=== PATIENT | female | born 1980 | race Caucasian/White ===

== ENCOUNTER 2023-01-23 09:35 | Outpatient (OUT) | payer OTHER, SELFPAY ==
--- NOTE | 2023-01-23 10:07 | XR_ITS ---
[address] [address] Patient Name: MITESH BURGESS MRN: [id number] date: 1980 Sex: F Assigned Patient Location: LAB Current Patient Location: LAB Accession/Order Number: [id number] Exam Date: 01/23/2023 10:15 Report Date: 01/23/2023 11:41 At the request of: PEPE ALCAZAR Procedure: XR knee LT 3V PROCEDURE: XR knee LT 3V COMPARISON: None. HISTORY: Left Knee Pain M25.562 FINDINGS: BONES:No fracture, acute abnormality, or significant arthropathy. SOFT TISSUES:Negative. No visible soft tissue swelling. EFFUSION:None visible. OTHER: Negative. XR/XR knee LT 3V IMPRESSION: No acute radiographic abnormality Electronically authenticated by: EDUARDO CROSS Date: 01/23/2023 11:41
--- NOTE | 2023-01-23 10:07 | XR_ITS ---
[address] [address] Patient Name: MITESH BURGESS MRN: [id number] date: 1980 Sex: F Assigned Patient Location: LAB Current Patient Location: LAB Accession/Order Number: [id number] Exam Date: 01/23/2023 10:15 Report Date: 01/23/2023 11:45 At the request of: PEPE ALCAZAR Procedure: XR ankle LT min 3V PROCEDURE: XR ankle LT min 3V COMPARISON: None. HISTORY: Left Ankle Pain M25.572 FINDINGS: BONES:No fracture, acute abnormality, or significant arthropathy. SOFT TISSUES:Negative. No visible soft tissue swelling. EFFUSION:None visible. OTHER: Negative. XR/XR ankle LT min 3V IMPRESSION: No acute radiographic abnormality Electronically authenticated by: EDUARDO CROSS Date: 01/23/2023 11:45
--- NOTE | 2023-01-23 10:07 | XR_ITS ---
The [address] [address] Patient Name: MITESH BURGESS MRN: [id number] date: 1980 Sex: F Assigned Patient Location: LAB Current Patient Location: LAB Accession/Order Number: [id number] Exam Date: 01/23/2023 10:15 Report Date: 01/23/2023 11:43 At the request of: PEPE ALCAZAR Procedure: XR hip LT 2V w/ pelvis PROCEDURE: XR hip LT 2V w/ pelvis COMPARISON: None. HISTORY: Left Hip Pain M25.572 FINDINGS: BONES:No fracture, acute abnormality, or significant arthropathy. SOFT TISSUES:Negative. No visible soft tissue swelling. EFFUSION:None visible. OTHER: Negative. XR/XR hip LT 2V w/ pelvis IMPRESSION: No acute radiographic abnormality Electronically authenticated by: EDUARDO CROSS Date: 01/23/2023 11:43
[2023-01-23 10:12] LABS: Basophils Absolute Auto 0.1 10^3/uL (0.0-0.1); Basophils Percent Auto 0.8 % (0.2-2.0); Eosinophils Absolute Auto 0.2 10^3/uL (0.0-0.7); Eosinophils Percent Auto 3.2 % (0.9-7.0); Hematocrit 41.6 % (36.0-48.0); Immature Granulocytes Abs Auto 0.04 10^3/uL (0.00-0.03); Immature Granulocytes Pct Auto 0.6 % (0.0-0.5); Lymphocytes Absolute Auto 1.8 10^3/uL (1.2-3.8); Mean Corpuscular HGB Conc 33.7 g/dL (29.9-35.2); Mean Corpuscular Hemoglobin 30.4 pg (26.7-34.0); Mean Corpuscular Volume 90.4 fL (81.0-99.0); Monocytes Absolute Auto 0.5 10^3/uL (0.3-0.8); Monocytes Percent Auto 8.3 % (1.7-12.0); Neutrophils Absolute Auto 3.8 10^3/uL (1.4-6.5); Neutrophils Percent Auto 59.1 % (43.0-75.0); Platelet Count 303 10^3/uL (150-450); Red Cell Distribution Width 13.2 % (11.0-15.0); White Blood Count 6.5 10^3/uL (4.0-11.0)
[2023-01-23 13:21] LABS: Anion Gap 12.8; BUN Creatinine Ratio 11.9; Carbon Dioxide 23.3 mmol/L (21.0-32.0); Chloride 107 mmol/L (98-107); Estimated GFR (African America >60 (>=60); Estimated GFR (Non-African Ame 60 (>=60); Glucose 90 mg/dL (74-106); Potassium 4.1 mmol/L (3.5-5.1); Sodium 139 mmol/L (136-145)
[2023-01-23 13:22] LABS: Alanine Aminotransferase 40 U/L (14-59); Albumin Globulin Ratio 1.1; Albumin Level 3.7 g/dL (3.4-5.0); Alkaline Phosphatase 106 U/L (46-116); Aspartate Amino Transferase 29 U/L (15-37); Bilirubin Total 0.3 mg/dL (0.2-1.0); Calcium 9.6 mg/dL (8.5-10.1); Cholesterol 175 mg/dL (<=200); Globulin 3.3 g/dL; Triglycerides 278 mg/dL (<=150); VLDL CHOLESTEROL 55.6 mg/dL
[2023-01-23 13:23] LABS: Chol HDL Ratio 4.9; Free T3 4.56 pg/mL (2.18-3.98); HDL Cholesterol 36 mg/dL (40-60); Thyroid Stimulating Hormone 0.917 uIU/mL (0.358-3.740)
[2023-01-23 13:46] LABS: Estimated Average Glucose 94 mg/dL; Glycohemoglobin A1C 4.9 % (4.5-6.2)
[2023-01-24 11:28] LABS: Insulin 30.7 uIU/mL (2.6-24.9)
== END 2023-01-23 09:36 | disposition home or self-care (01) ==
LOC: LAB 09:39
PROVIDERS: PCP Family Medicine; Visit Provider Family Medicine
DX: M25.552 Pain in left hip (principal); M25.562 Pain in left knee; M25.572 Pain in left ankle and joints of left foot; F32.9 Major depressive disorder, single episode, unspecified; E03.9 Hypothyroidism, unspecified; R73.09 Other abnormal glucose; D64.9 Anemia, unspecified; E55.9 Vitamin D deficiency, unspecified
CPT/HCPCS: 36415; 73502; 73562; 73610; 80053; 80061; 82306; 83036; 83525; 83540; 84436; 84443; 84481; 85025

== ENCOUNTER 2023-03-19 14:14 | Outpatient (REF) | payer OTHER, SELFPAY ==
[2023-03-19 15:59] LABS: Influenza Virus A Antigen Negative; Influenza Virus B Antigen Negative; Internal Control Within Normal Limits; SARS-CoV-2 Ag NEGATIVE (NEGATIVE)
[2023-03-20 16:09] LABS: SARS-CoV-2 NAA NOT DETECTED (NOT DETECTE)
== END 2023-03-19 14:15 | disposition home or self-care (01) ==
LOC: LAB 14:14
PROVIDERS: PCP Family Medicine; Visit Provider Nurse Practitioner Family
DX: J06.9 Acute upper respiratory infection, unspecified (principal)
CPT/HCPCS: 87635; 87804; 87811; U0003

== ENCOUNTER 2023-07-04 13:55 | Emergency (ER) | payer OTHER, SELFPAY ==
[2023-07-04] VITALS (14 sets, daily range): BP systolic 81–123; BP diastolic 34–68; PULSE 61; RESP 14; TEMP 36.6; O2SAT 95; BMI 44.1
[2023-07-04] MEDS: 0.9 % SODIUM CHLORIDE 1,000 ML 1000 ML IV ×2 (14:43→15:33)
--- NOTE | 2023-07-04 15:12 | ED_ITS ---
HPI - General Adult General Chief complaint: Nausea/Vomiting/Diarrhea Stated complaint: FATIGUE/NAUSEA Time Seen by Provider: 07/04/23 15:11 Source: patient Mode of arrival: ambulance History of Present Illness HPI narrative: patient here by squad with a syncopal episode. Patient says she has not felt very good last couple days. In fact spent most yesterday in bed. She had some generalized aches and pains. She had approximately three episodes of diarrhea. She did not know same blood in the diarrhea yesterday. She was on her way to use the restroom for bowel movement today and she passed out. She did not have any shortness of breath prior to that time. She does not have any chest. Chest discomfort. She did not have difficulty dysarthria or dysphagia. She did not have any new medications.she is not on any antibiotics. Related Data Home Medications Medication Instructions Recorded Confirmed buspirone 30 mg tablet 30 mg PO BID 07/04/23 07/04/23 desvenlafaxine succinate 100 mg 200 mg PO DAILY 07/04/23 07/04/23 tablet,extended release 24 hr diclofenac sodium 75 mg 75 mg PO BID 07/04/23 07/04/23 tablet,delayed release hydroxyzine pamoate 25 mg capsule 25 mg PO QID PRN anxiety 07/04/23 07/04/23 lamotrigine 100 mg tablet 100 mg PO DAILY anxiety 07/04/23 07/04/23 lamotrigine 200 mg tablet 200 mg PO DAILY anxiety 07/04/23 07/04/23 levothyroxine 75 mcg tablet 75 mcg PO DAILY 07/04/23 07/04/23 liothyronine 5 mcg tablet 20 mcg PO DAILY 07/04/23 07/04/23 lumateperone 21 mg capsule 21 mg PO DAILY 07/04/23 07/04/23 (Caplyta) methocarbamol 500 mg tablet 500 mg PO TID PRN muscle spasms 07/04/23 07/04/23 pregabalin 150 mg capsule 150 mg PO BID 07/04/23 07/04/23 topiramate 100 mg capsule,extended 100 mg PO DAILY 07/04/23 07/04/23 release 24 hr trazodone 50 mg tablet 50 mg PO QPM 07/04/23 07/04/23 Allergies Allergy/AdvReac Type Severity Reaction Status Date / Time clindamycin Allergy Severe Verified 07/04/23 14:05 codeine Allergy Severe Verified 07/04/23 14:05 Exam Narrative Exam Narrative: the patient is awake and alert. Resting heart rate on EKG is fifty-eight sinus rhythm. She's oriented ?3 there is no confusion. Follows all simple commands. No focal neurological deficits. She does have some mid abdominal discomfort and cramping. There is no peritoneal findings. She is status post cholecystectomy but she has not had an appendectomy. There is no guarding rebound or rigidity. T here is no pulsatile masses. Her lungs are clear heart sounds are regular. Her extremities do not show any peripheral edema or deep vein thrombosis or swelling. Constitutional Vital Signs, click to edit/add: Last Vital Signs Temp 97.8 F 07/04/23 14:01 Pulse 61 07/04/23 14:01 Resp 14 07/04/23 14:01 BP 108/63 07/04/23 15:30 Pulse Ox 95 07/04/23 14:01 O2 Del Method Room Air 07/04/23 14:01 Course Vital Signs Vital signs: Vital Signs Temperature 97.8 F 07/04/23 14:01 Pulse Rate 61 07/04/23 14:01 Respiratory Rate 14 07/04/23 14:01 Blood Pressure 81/51 L 07/04/23 14:01 Pulse Oximetry 95 07/04/23 14:01 Oxygen Delivery Method Room Air 07/04/23 14:01 Temperature 97.8 F 07/04/23 14:01 Pulse Rate 61 07/04/23 14:01 Respiratory Rate 14 07/04/23 14:01 Blood Pressure 108/63 07/04/23 15:30 Pulse Oximetry 95 07/04/23 14:01 Oxygen Delivery Method Room Air 07/04/23 14:01 Medical Decision Making MDM Narrative Medical decision making narrative: patient presents to syncopal episode after trying to use the restroom. She's had some diarrhea the last several days. Her laboratory studies show slightly low potassium but otherwise are normal. Influenza testing Covid are negative. Her chest x-ray is normal. She was given IV fluids here. There is no indication of a urinary tract infection. I believe her symptoms are consistent with a vasovagal reaction Lab Data Labs: Lab Results 07/04/23 07/04/23 07/04/23 Range/Units 14:13 16:25 16:30 WBC 7.3 (4.0-11.0) 10^3/uL RBC 4.54 (4.20-5.40) 10^6/uL Hgb 14.2 (12.0-16.0) g/dL Hct 42.5 (36.0-48.0) % MCV 93.6 (81.0-99.0) fL MCH 31.3 (26.7-34.0) pg MCHC 33.4 (29.9-35.2) g/dL RDW 12.6 (11.0-15.0) % Plt Count 251 (150-450) 10^3/uL MPV 10.4 (9.5-13.5) fL Neut % (Auto) 70.2 (43.0-75.0) % Lymph % (Auto) 21.3 (20.5-60.0) % [facility] % (Auto) 6.9 (1.7-12.0) % Eos % (Auto) 0.8 L (0.9-7.0) % Baso % (Auto) 0.4 (0.2-2.0) % Neut # (Auto) 5.1 (1.4-6.5) 10^3/uL Lymph # (Auto) 1.6 (1.2-3.8) 10^3/uL [facility] # (Auto) 0.5 (0.3-0.8) 10^3/uL Eos # (Auto) 0.1 (0.0-0.7) 10^3/uL Baso # (Auto) 0.0 (0.0-0.1) 10^3/uL Abs Immat Gran (auto) 0.03 (0.00-0.03) 10^3/uL Imm/Tot Granulo (auto) 0.4 (0.0-0.5) % Sodium 140 (136-145) mmol/L Potassium 3.2 L (3.5-5.1) mmol/L Chloride 105 (98-107) mmol/L Carbon Dioxide 24.2 (21.0-32.0) mmol/L Anion Gap 14.0 BUN 19.0 H (7.0-18.0) mg/dL Creatinine 0.95 (0.55-1.02) mg/dL Est GFR ( Amer) >60 (>=60) Est GFR (Non-Af Amer) >60 (>=60) BUN/Creatinine Ratio 20.0 Glucose 113 H (74-106) mg/dL Calcium 9.0 (8.5-10.1) mg/dL Total Bilirubin 0.5 (0.2-1.0) mg/dL AST 25 (15-37) U/L ALT 34 (14-59) U/L Alkaline Phosphatase 117 H (46-116) U/L Troponin I High Sens <4.0 L (4.0-51.3) pg/mL Total Protein 7.0 (6.4-8.2) g/dL Albumin 3.5 (3.4-5.0) g/dL Globulin 3.5 g/dL Albumin/Globulin Ratio 1.0 Lipase 26.0 (16.0-77.0) U/L Urine Color Lt. yellow (YELLOW) Urine Clarity Clear (CLEAR) Urine pH 6.0 (5.0-9.0) Ur Specific [place] <=1.005 A (1.005-1.025) Urine Protein Negative (NEG/TRACE) mg/dL Urine Glucose (UA) Negative (NEGATIVE) mg/dL Urine Ketones Negative (NEGATIVE) mg/dL Urine Occult Blood Negative (NEGATIVE) Urine Nitrite Negative (NEGATIVE) Urine Bilirubin Negative (NEGATIVE) Urine Urobilinogen 0.2 (0.2-1.0) EU/dL Ur Leukocyte Esterase Negative (NEGATIVE) SARS-CoV-2 (PCR) Negative (NEGATIVE) Influenza Type A Ag Negative Influenza Type B Ag Negative Discharge Plan Discharge Chief Complaint: Nausea/Vomiting/Diarrhea Clinical Impression: Acute hypokalemia Patient Disposition: Home, Self-Care Time of Disposition Decision: 16:54 Prescriptions / Home Meds: No Action buspirone 30 mg tablet 30 mg PO BID desvenlafaxine succinate 100 mg tablet extended release 24 hr 200 mg PO DAILY diclofenac sodium 75 mg tablet,delayed release (DR/EC) 75 mg PO BID hydroxyzine pamoate 25 mg capsule 25 mg PO QID PRN (Reason: anxiety) lamotrigine 100 mg tablet 100 mg PO DAILY lamotrigine 200 mg tablet 200 mg PO DAILY levothyroxine 75 mcg tablet 75 mcg PO DAILY liothyronine 5 mcg tablet 20 mcg PO DAILY Caplyta 21 mg capsule 21 mg PO DAILY methocarbamol 500 mg tablet 500 mg PO TID PRN (Reason: muscle spasms) pregabalin 150 mg capsule 150 mg PO BID topiramate 100 mg capsule,extended release 24hr 100 mg PO DAILY trazodone 50 mg tablet 50 mg PO QPM Additional Instructions: increase clear fluids/Zofran if needed for nausea/potassium Stand Alone Forms: Portal Instructions Referrals: Tae Fox MD [Primary Care Provider] - 1 week
[2023-07-04 15:24] LABS: Basophils Percent Auto 0.4 % (0.2-2.0); Eosinophils Absolute Auto 0.1 10^3/uL (0.0-0.7); Eosinophils Percent Auto 0.8 % (0.9-7.0); Hematocrit 42.5 % (36.0-48.0); Hemoglobin 14.2 g/dL (12.0-16.0); Immature Granulocytes Abs Auto 0.03 10^3/uL (0.00-0.03); Immature Granulocytes Pct Auto 0.4 % (0.0-0.5); Lymphocytes Absolute Auto 1.6 10^3/uL (1.2-3.8); Lymphocytes Percent Auto 21.3 % (20.5-60.0); Mean Corpuscular HGB Conc 33.4 g/dL (29.9-35.2); Mean Corpuscular Hemoglobin 31.3 pg (26.7-34.0); Mean Corpuscular Volume 93.6 fL (81.0-99.0); Mean Platelet Volume 10.4 fL (9.5-13.5); Monocytes Absolute Auto 0.5 10^3/uL (0.3-0.8); Monocytes Percent Auto 6.9 % (1.7-12.0); Neutrophils Absolute Auto 5.1 10^3/uL (1.4-6.5); Neutrophils Percent Auto 70.2 % (43.0-75.0); Platelet Count 251 10^3/uL (150-450); Red Blood Count 4.54 10^6/uL (4.20-5.40); Red Cell Distribution Width 12.6 % (11.0-15.0); White Blood Count 7.3 10^3/uL (4.0-11.0)
[2023-07-04 15:36] LABS: Alanine Aminotransferase 34 U/L (14-59); Albumin Level 3.5 g/dL (3.4-5.0); Alkaline Phosphatase 117 U/L (46-116); Aspartate Amino Transferase 25 U/L (15-37); Bilirubin Total 0.5 mg/dL (0.2-1.0); Carbon Dioxide 24.2 mmol/L (21.0-32.0); Chloride 105 mmol/L (98-107); Estimated GFR (African America >60 (>=60); Estimated GFR (Non-African Ame >60 (>=60); Globulin 3.5 g/dL; Glucose 113 mg/dL (74-106); Potassium 3.2 mmol/L (3.5-5.1); Sodium 140 mmol/L (136-145)
[2023-07-04 15:39] LABS: Troponin I High Sensitivity <4.0 pg/mL (4.0-51.3)
[2023-07-04 16:34] LABS: Bilirubin Urine NEGATIVE (NEGATIVE); Blood Urine NEGATIVE (NEGATIVE); Clarity Urine CLEAR (CLEAR); Color Urine LT. YELLOW (YELLOW); Glucose Urine UA NEGATIVE (NEGATIVE); Ketones Urine NEGATIVE (NEGATIVE); Leukocyte Esterase Urine NEGATIVE (NEGATIVE); Nitrite Urine NEGATIVE (NEGATIVE); Protein Urine NEGATIVE (NEG/TRACE); Specific Gravity Urine <=1.005 (1.005-1.025); Urine Microscopic Indicated NO; Urobilinogen Urine 0.2 EU/dL (0.2-1.0)
[2023-07-04] MEDS: POTASSIUM CHLORIDE 10 MEQ ER TABLET 20 MEQ PO (16:41)
[2023-07-04 16:46] LABS: Influenza Virus A Antigen Negative; Influenza Virus B Antigen Negative; Internal Control Within Normal Limits; SARS-CoV-2 Ag NEGATIVE (NEGATIVE)
--- NOTE | 2023-07-04 17:11 | ECG_ITS ---
The [facility] Test Date: 2023-07-04 Pat Name: MITESH BURGESS Department: Room: - Gender: Female Blood Typer: : 1980 Requested By: PEPE ALCAZAR Order Number: [id number] Reading MD: PEPE ALCAZAR Measurements Intervals [place] Rate: 58 P: 34 DC: 148 QRS: -3 QRSD: 80 T: -30 QT: 398 QTc: 395 Interpretive Statements 1100 Sinus rhythm iNF-LAT t WWAVE INVRERSION - CANNONT RULE OUT ISCHEMIA 9150 abnormal ECG No previous ECG available for comparison Electronically Signed On 07-05-2023 6:30:11 EST by PEPE ALCAZAR
[2023-07-05 08:30] LABS: SARS-CoV-2 NAA NOT DETECTED (NOT DETECTE)
== END 2023-07-04 17:22 | disposition home or self-care (01) ==
PROVIDERS: Emergency Provider Emergency Medicine Emergency Medical Services; PCP Family Medicine
DX: E87.6 Hypokalemia (principal); Z90.49 Acquired absence of other specified parts of digestive tract; R55 Syncope and collapse; Z79.899 Other long term (current) drug therapy
CPT/HCPCS: 36415; 80053; 81003; 83690; 84484; 85025; 87635; 87798; 87804; 87811; 93005; 96360; 96361; 99285

== ENCOUNTER 2023-07-22 09:39 | Outpatient (OUT) | payer OTHER, SELFPAY ==
--- OUTSIDE RECORDS SUMMARY | 2023-07-22 09:57 | XMS_ITS | CCD ---
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 12-17-2022 12-17-2022 Episodic E Codes: Fall (1 source) Other fall on same level, initial encounter; Translations: [OTHER FALL ON SAME LEVEL INITIAL] Onset: 04-02-2022 Episodic Fever of unknown origin (4 sources) Fever, unspecified; Translations: [FEVER UNSPECIFIED] Onset: 11-30-2021 Episodic Fluid and electrolyte disorders (1 source) Hypokalemia; Translations: [HYPOKALEMIA] Onset: 04-02-2022 Episodic Malaise and fatigue (4 sources) Weakness; Translations: [WEAKNESS] Onset: 03-29-2022 Episodic Other and unspecified benign neoplasm (3 sources) Hemangioma of bone; Translations: [Hemangioma of other sites] Onset: 02-05-2023 02-05-2023 Episodic Other injuries and conditions due to external causes (1 source) Unspecified injury of left shoulder and upper arm, initial encounter; Translations: [UNS INJ LT SHOULDER UP ARM INITIAL] Onset: 04-02-2022 Episodic Other lower respiratory disease (1 source) Dyspnea, unspecified; Translations: [DYSPNEA UNSPECIFIED] Onset: 01-30-2022 Episodic Other lower respiratory disease (4 sources) Chest pain on breathing; Translations: [Chest pain on breathing] Onset: 05-12-2015 05-12-2015 Episodic Other nutritional; endocrine; and metabolic disorders (1 source) Abnormal weight gain; Translations: [ABNORMAL WEIGHT GAIN] Onset: 12-01-2021 Episodic Other screening for suspected conditions (not mental disorders or infectious disease) (9 sources) Abnormal findings on diagnostic imaging of skull and head, not elsewhere classified; Translations: [Encounter for screening for malignant neoplasm of colon] Onset: 12-01-2021 Episodic Elzbieta-; endo-; and myocarditis; cardiomyopathy (except that caused by tuberculosis or sexually transmitted disease) (4 sources) Acute idiopathic pericarditis; Translations: [Acute nonspecific idiopathic pericarditis] Onset: 05-12-2015 05-12-2015 Episodic Pleurisy; pneumothorax; pulmonary collapse (4 sources) Pleurisy; Translations: [Pleurisy] Onset: 05-12-2015 05-12-2015 Episodic Residual codes; unclassified (1 source) Acquired absence of other specified parts of digestive tract; Translations: [ACQ ABSENCE OTH PART DIGESTV TRACT] Onset: 04-02-2022 Episodic Residual codes; unclassified (1 source) Acquired absence of both cervix and uterus; Translations: [ACQUIRED ABSENCE BOTH CERVIX AND UTERUS] Onset: 04-02-2022 Episodic Syncope (4 sources) Syncope and collapse; Translations: [SYNCOPE AND COLLAPSE] Onset: 03-05-2022 Episodic Unclassified (1 source) CONTACT W/AND (SUSP) EXPOS COVID-19; Translations: [CONTACT W/AND (SUSP) EXPOS COVID-19] Onset: 08-16-2022 Results Test Name Value Interpretation Reference Range Facility Nonvisit Note - PTon 023 Nonvisit Note - PT chart reviewed with eval prepped for scheduled eval. [facility] Orders Officeon 06-21-2023 Orders Office [id number]#1.00TIFF [facility] Consent for Treatmenton Consent for Treatment [id number]#1.00TIFF [facility] Consultation Noteon 06-10-20 Consultation Note Patient: MITESH BURGESS Age: 43 years Sex: Female : 1980 Associated Diagnoses: None Author: Ade Hennessy PA-C Subjective Chief complaint 06/10/2023 15:08 EST left low back hip . Patient is a 43-year-old female. She presents today for follow-up after undergoing a repeat left-sided L4-5 and L5-S1 transforaminal epidural steroid injection. This was done on 05/07/2023 and unfortunate, did not give her relief like the previous 1 did. This 1 only gave her 50% relief and only for 1 week. She is still having left lower back pain with left buttock pain and left radiating leg pain that goes all the way down to her toes. She rates it a 6/10. Previous physical therapy has failed. Anti-inflammatory medications do not help. Unfortunate, the recent injection did not give her the relief she was looking for either. She was somewhat discouraged by this. At this time, for her fibromyalgia she continues on Lyrica. Lowered by her neurologist to 150 mg of due to some side effects. She is also continuing to use the methocarbamol. Rarely but she has been using it. At this time, she wonders what she can do to just get some better relief of her left radiating leg pain as she states that this is very limiting and causing her a lot of issues. Health Status Allergies: Allergic Reactions (Selected) Severity Not Documented Adhesive Bandage- Rash. Clindamycin- Itching. Codeine- Nausea. Latex- Rash., Allergies (4) Active Reaction Adhesive Bandage rash clindamycin Itching codeine Nausea Latex rash Current medications: (Selected) Prescriptions Prescribed Lyrica 150 mg Cap: 150 mg = 1 cap(s), Oral, BID, # 60 cap(s), Refills(s) 1, [id number] 161, cm, 06/10/23 15:18:00 EST, Height/Length Dosing, 95.2, kg, 04/19/23 8:29:00 EDT, Weight Dosing albuterol HFA 90 mcg/inh MDI: 2 puff(s), Inhalation, QID Shortness of breath or wheezing, 1 EA, Refill(s) 0, qid and prn sob/wheezing, [facility]/pharmacy #[id number], 160, cm, 04/27/20 22:06:00 EDT, Height/Length Dosing, 98, kg, 04/27/20 22:06:00 EDT, Weight Dosing methocarbamol 500 mg Tab: 500 mg = 1 tab(s), Oral, TID, PRN Spasm, X 30 day(s), # 90 tab(s), Refills(s) 2, [id number] 161, cm, 06/10/23 15:18:00 EST, Height/Length Dosing, 95.2, kg, 04/19/23 8:29:00 EDT, Weight Dosing off work: off work, See Instructions, 1 EA, 0, Patient had a procedure with our services. She should be excused from work for 10/30/21 and 10/31/21, Supply Documented Medications Documented Ingrezza 60 mg oral capsule: mg cap(s), Oral, Daily, Refills(s) 0 LIOTHYRONINE SOD 5 MCG TAB: LIOTHYRONINE SOD 5 MCG TAB Lamictal 25 mg Tab: 50 mg = 2 tab(s), Oral, Bedtime, Refills(s) 0, Seizure Lamictal: 200 mg, Oral, Bedtime, Refills(s) 0, Seizure Multi Vitamins oral tablet: 1 tab(s), Oral, Daily, Refill(s) 0, Prophylaxis Pristiq 100 mg Tab-ER: 200 mg = 2 tab(s), Oral, Daily, # 30 tab(s), Refills(s) 0, Depression Trokendi XR 100 mg oral capsule, extended release: TAKE 1 CAPSULE BY MOUTH EVERY DAY Vitamin C 500 mg Tab: 500 mg = 1 tab(s), Oral, Daily, Refills(s) 0, Prophylaxis Vitamin D3 2000 intl units: See Instructions, daily, Refills(s) 0 Zyrtec: 10 mg, Oral, Daily, PRN Allergy symptoms, Refills(s) 0 busPIRone 15 mg Tab: 15 mg = 1 tab(s), Oral, TID, Refills(s) 0, Anxiety calcium (as carbonate) 600 mg oral tablet: 600 mg = 1 tab(s), Oral, Daily, Refills(s) 0 hydrOXYzine pamoate 25 mg Cap: 25 mg = 1 cap(s), Oral, QID, PRN for anxiety, # 40 cap(s), Refills(s) 0 levothyroxine 50 mcg (0.05 mg) Tab: TAKE 1 TABLET BY MOUTH EVERY DAY potassium chloride: 40 mEq, Oral, Daily, Refills(s) 0 pregabalin 150 mg Cap: 150 mg = 1 cap(s), Oral, BID, # 60 cap(s), Refills(s) 0 Problem list: All Problems Synovial cyst of lumbar spine / SNOMED CT 5804690068 / Confirmed Neuropathy / SNOMED CT 0303106123 / Confirmed Ascending aorta dilation / SNOMED CT 202906229 / Confirmed Anxiety / SNOMED CT 83438738 / Confirmed Bipolar disorder / SNOMED CT 11538756 / Confirmed Labral tear of shoulder / SNOMED CT 243365168 / Confirmed Resolved: At risk for falls / SNOMED CT 361342776 Problem added when Risk for Falls Careplan was initiated. Resolved due to patient discharge. Resolved: Migraine / SNOMED CT 28769097 Resolved: Seasonal allergies / SNOMED CT [id number] Objective Vital Signs 06/10/2023 15:08 EST Peripheral Pulse Rate 76 bpm Respiratory Rate 18 br/min Systolic Blood Pressure 117 mmHg Diastolic Blood Pressure 69 mmHg Mean Arterial Pressure, Cuff 85 mmHg General: Alert and oriented, No acute distress. Eye: Normal conjunctiva. HENT: Normocephalic, Normal hearing. Cardiovascular: No edema. Musculoskeletal Normal range of motion. Normal strength. 5/5 lower extremity strength Integumentary: Warm, Dry, Tidioute. Injection site well-healed Neurologic: Alert, Oriented. Psychiatric: Cooperative, Appropriate mood & affect. Imp (more content not included)... [facility] Comment on above: Result Comment: Elec tronically Signed By: Ade Hennessy PA-C\.br\Date and Time Signed: 06/10/23 15:27 EST\.br\Electronically Co-Signed By: Hai JAY, Boy Wilson\.br\Date and Time Co-Signed: 06/13/23 10:59 EST Office/Clinic Note-Physician on 06-10-2023 Office/Clinic Note-Physician [id number]#1.00TIF F [facility] Patient Correspondenceon Patient Correspondence [id number]#1.00TIF F [facility] Patient Correspondence [id number]#1.00TIF F [facility] Patient History Officeon Patient History Office [id number]#1.00TIF F [facility] CNOVon 05-08-2023 CNOV Office Visit ([facility] ) ----- MITESH BURGESS ([id number]) 1980 F Date Time Provider Department 05/08/23 2:30 PM STALIN REYES During your visit today, we recorded the following information about you: Pulse Blood pressure Weight Height 67/minute 111/66 97.2 kg 1.6 Stalin Bundy MD 05/08/2023 3:40 PM Signed [facility] Follow up/ Established patient visit Individuals who were included in, or assisted with the encounter were: Mitesh Reyes MD Chief Complaint/Issues: Mitesh Burgess is a 43 year old R handed female w PMH chronic migraine stopped Emgality half year ago, anxiety, depression, skull mass, seen in the [facility] for: Dizziness, headache and tremor Most Recent Neurological Assessment and Plan: Last Filed Values Date of Most Recent Assessment and Plan 12/17/22 Specialty General Neurology Assessment Mitesh Burgess is a 42 year old R handed female w PMH chronic migraine stopped Emgality half year ago, anxiety, depression, skull mass, seen in the [facility] for: 1. Dizziness, headache and tremor --Tremor: It appears like essential tremor. I do not see Parkinsonism at this time except that she does have psychomotor slowing. She is on multiple medications for her psychiatric disease which may cause tremor. She also has family history of essential tremor. We will observe her over time. I also asked her to talk with her psychiatrist to see whether her psych medication can be consolidated. --Dizziness: I think this is associated with her chronic migraine. She was on Emgality. It was stopped 6 months to a year ago and her headache and dizziness returned. I will restart her Emgality at this time. Meanwhile, we will give her meclizine for symptomatic management. --Skull mass: She had MRI brain with without contrast in February 2022 which showed a skull mass. 3-month follow-up was recommended but she did not have it. I will refer her to brain tumor. I will order MRI brain with without contrast since he is overdue. --Anxiety and depression Plan --We will repeat MRI brain and have you see a brain tumor doctor for your skull lesion. Please bring the old MRI disc to your appointment --Meclizine 12.5mg twice a day as needed for your dizziness. Do not take it if it doesn't help --Your dizziness is related to your migraine. We need to restart Emgality injection. Inject two pens (240mg) the first month, and then 120mg (1 pen) per months thereafter --The tremor might be related to your anxiety medicine. You can talk with your psychiatrist to see whether some of them can be reduced --Follow up with me in 4-5 months HPI/Interval History: Tremor: She has been having tremor for at least 4 years. Mostly in right hand. Her grandma has essential tremor. It gets worse when her anxiety hits. Vertigo: comes and goes for 6 months. It worsened a month ago. She feels room spinning and unsteady. With diplopia sometimes. It can be triggered by turning her headache and standing up. It may last for several hours. No LOC. Migraine: She had chronic migraine with dizziness/vertiginous symptoms. She used to be on Emgality which controled the headache. She stopped it 6 months to a year ago. Headache is daily now with dizziness, photophobia and phonophobia. Sometimes she feels nausea. Topamax was started by PCP at 100mg daily but it only takes the edge off. She is on Lamotrigine 300mg daily. Buspirone 30mg bid, She ws restarted on seroquel 25mg recently. 05/08/2023 She is back on Emgality. Headache is better. Still has headache sometimes but she can function with it. She took lyrica 900mg 2 days ago and she became dizzy, sleepy, feeling that she is mumbling her words all the time. She said she is on lyrica 300mg bid by pain management. Her pain management is absent [facility]. 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 Her psychiatrist recently adjusted her medications. Seroquel was stopped and Ingrezza 60 mg daily was started. Regarding the left parietal bone lesion, she had a repeat MRI and saw a doctor from the center of brain tumor. She was told to return in a year. MRI brain 01/24/2023 No acute intracranial abnormality. No pathologic enhancement. Few punctate foci of FLAIR hyperintensity in the white matter, which are nonspecific; see above. Otherwise unremarkable enhanced MRI appearance of the brain. 2.7 cm enhancing lesion in the left parietal calvarium, which demonstrates intrinsic T1 hyperintensity and is most compatible with intraosseous hemangioma. General Examination: BP 111/66 Pulse 67 Ht 160 cm (5' 3 ) Wt 97.2 kg (214 lb 4.8 oz) BMI 37.96 kg/m? General: Awake, alert, interactive, no acute (more content not included)... Normal [facility] Consent for Procedure/[facility] 05-07-2023 Consent for Procedure/Surgery [id number]#1.00TIFF Normal [facility] Consent for Treatmenton 04-09 Consent for Treatment [id number]#1.00TIFF Normal [facility] Discharge Instructionson Discharge Instructions [id number] Normal [facility] IntraOperative Documentson 1 IntraOperative Documents [id number]#1.00TIFF [facility] Main OR Intraoperative Recor don 05-07-2023 Main OR Intraoperative Record IntraOp Document Type FTPM Summary Primary Physician: Boy Valles MD Finalized Date/Time: 05/07/23 09:17:26 Pt. Name: MITESH BURGESS/Sex: 1980 Female Med Rec #: [id number] Physician: Boy Valles MD Financial #: [id number] Pt. Type: P Room/Bed: / Admit/Disch: 05/07/23 07:41:17 - Institution: Case Times FTPM Entry 1 Patient Times In Room 05/07/23 09:11:00 Out Room 05/07/23 09:18:00 Procedure Times Start 05/07/23 09:14:00 Stop 05/07/23 09:17:00 Anesthesia Times Last Modified By: Heaven Butts RN 05/07/23 09:17:09 Case Attendance FTPM Entry 1 Entry 2 Entry 3 Case Attendee Boy Valles MD, RN, Heaven Pires RN, [place] Jimmie Role Performed Surgeon - Primary Associate Professor Of Radiology - Primary Scrub - Primary Time In 05/07/23 09:11:00 05/07/23 09:11:00 05/07/23 09:11:00 Time Out 05/07/23 09:18:00 05/07/23 09:18:00 05/07/23 09:18:00 Procedure TRANSFORAMINAL EPIDURAL TRANSFORAMINAL EPIDURAL TRANSFORAMINAL EPIDURAL STEROID INJECTIO(Left) STEROID INJECTIO(Left) STEROID INJECTIO(Left) Comments Last Modified By: Heaven Butts RN, RN, Heaven Arguello RN 05/07/23 09:17:10 05/07/23 09:17:10 05/07/23 09:17:10 Entry 4 Case Attendee Nish Walker Role Performed Mixer Attendant Time In 05/07/23 09:11:00 Time Out 05/07/23 09:18:00 Procedure TRANSFORAMINAL EPIDURAL STEROID INJECTIO(Left) Comments Last Modified By: Heaven Butts RN 05/07/23 09:17:10 Perioperative Protocols FTPM Pre-Care Text: Implements protective measures prior to operative or invasive procedure, confirms identity before the operative or invasive procedure, verifies operative procedure, surgical site, and laterality Entry 1 Procedure(s) TRANSFORAMINAL EPIDURAL Patient Identity Birthday, ID Band STEROID INJECTIO(Left) Verified (select at Check, Patient least 2): Participation Consents / H and P HandP, Surgery/Procedure Operative Site Present Verified Consent Marking Verified Surgical Site Yes Laterality Verified Yes Verified Procedure Verified Yes Correct Patient Yes Position Verified Availability Equipment, Medication, Prep Dry Yes Verified (If X-ray Applicable) PreOp Antibiotic No Time Out Heaven Butts RN, Ananda Piers RN, Hai Paulson MD, Joshua D, Hargrove, Bryce Time Out Complete 05/07/23 09:11:00 Outcomes Met? Yes Last Modified By: Heaven Butts RN 05/07/23 09:11:22 Post-Care Text: The patient is free from signs and symptoms of injury caused by extraneous objects Allergy Information FTPM Pre-Care Text: Verifies allergies Entry 1 Allergies Reviewed? Yes Allergies Reviewed Self/Patient With Outcomes Met? Yes Last Modified By: Heaven Butts RN 05/07/23 09:10:01 Post-Care Text: The patient received appropriate medication(s) safely administered during the perioperative period Surgical Procedures FTPM Entry 1 Procedure Description Procedure TRANSFORAMINAL EPIDURAL Modifiers Left STEROID INJECTION Surgeon Description L4/5 +L5/S1 TFESI Primary Procedure Yes Primary Surgeon Boy Valles MD Start 05/07/23 09:14:00 Stop 05/07/23 09:17:00 Anesthesia Type None Surgical Service Pain Management Wound Class 1 - Clean Last Modified By: Heaven Butts RN 05/07/23 09:17:22 General Case Data FTPM Pre-Care Text: Classifies surgical wound, implements aseptic technique, initiates traffic control Entry 1 Case Information OR Pain Proc Room Case Level Level 2 Wound Class 1 - Clean Specialty Pain Management Preop Diagnosis M54.16 Postop Same As Preop Yes Postop Diagnosis M54.16 Outcomes Met? Yes Last Modified By: Heaven Butts RN 05/07/23 09:11:54 Post-Care Text: The patient is free from signs and symptoms of infection Skin Assessment (Pre Procedure) FTPM Pre-Care Text: Implements protective measures to prevent skin/ tissue injury due to thermal or mechanical sources Evaluates for signs and symptoms of physical injury to skin and tissue Entry 1 Skin Integrity Intact, Tidioute, Warm, and Skin Abnormality No Dry Outcomes Met? Yes Last Modified By: Heaven Butts RN 05/07/23 09:10:08 Post-Care Text: The patient is free from signs and symptoms of injury caused by extraneous objects Patient Positioning FTPM Pre-Care Text: Identifies physical alterations that require additional precautions for procedure-specific positioning, verifies presence of prosthetics or corrective devices, positions the patient, evaluates the patient for signs and symptoms of injury as a result of positioning Entry 1 Procedure TRANSFORAMINAL EPIDURAL Body Position Prone STEROID INJECTIO(Left) Feet Uncrossed? Yes Left Arm Position Resting at Side Right Arm Position Resting at Side Left Leg Position Extended Right Leg Position Extended Positioning Device Pillow Under Head Large, Safety Strap, Pillow Large Under Knees Press Points Check (more content not included)... Normal [facility] Main OR Preoperative Recordo n 05-07-2023 Main OR Preoperative Record Holding Area Document Type FTPM Summary Primary Physician: Boy Valles MD Finalized Date/Time: 05/07/23 08:11:41 Pt. Name: MITESH BURGESS D.O.B./Sex: 1980 Female Med Rec #: [id number] Physician: Boy Valles MD Financial #: [id number] Pt. Type: P Room/Bed: / Admit/Disch: 05/07/23 07:41:17 - Institution: Case Times Holding FTPM Pre-Care Text: Verifies consent for planned procedure, identifies individual values and wishes concerning care, includes family members in perioperative teaching Secures patient's records' belongings, and valuables, maintains patient's dignity and privacy, and maintains patient confidentiality Entry 1 In Holding 05/07/23 07:50:00 Outcomes Met? Yes Last Modified By: Gaby Ambrocio RN 05/07/23 07:50:58 Post-Care Text: The patient participates in decisions affecting his or her perioperative plan of care The patient's right to privacy is maintained Surgery Checklist FTPM Entry 1 Patient Birthday, ID Band Procedure History and Physical, Identification: Check, Patient Verification: Surgical Consent, With Participation Patient NPO after Midnight: n/a Date/Time: 05/06/23 19:00:00 Results Reviewed denies test Personal Items: Glasses, Jewelry Comments: Personal Items one necklace Complaints of Pain: Yes Comment: Pain Comment: 01/14 to lower back and Operative Site Yes lower legs Marking: Marked By: operative site marked Location: Left L4/L5 L5/S1 Availability Equipment, X-Ray Verified: Does Patient Smoke No Patient states Yes Comment - Adult Amelia-mom postop adult Supervision supervision available Case Cancelled in No Holding Area see comments below for reason Last Modified By: Gaby Ambrocio RN 05/07/23 08:11:39 Finalized By: Gaby Ambrocio RN Document Signatures Signed By: Gaby Ambrocio RN 05/07/23 08:11 Normal [facility] Operative Reporton 3 Operative Report Patient: MITESH BURGESS Age: 43 years Sex: Female : 1980 Associated Diagnoses: None Author: Boy Valles MD Procedure Procedure: Transforaminal Epidural Steroid Injections with Fluoroscopic Guidance at Left L4/5 and L5/S1 Diagnosis: Lumbar Radiculitis Anesthesia: Local The patient was identified in the pre-op area. The procedure, including risks benefits and alternatives was discussed with the patient. The patient agreed to proceed. Informed consent was obtained and the site(s) marked. The patient was brought to the procedure room and placed in the prone position with padding under the abdomen to reduce lumbar lordosis. Time out was performed. The back was prepped and draped in sterile fashion with Chloraprep. Skin and subcutaneous tissues were anesthetized with 6 mL of Lidocaine 2% through a 25G needle. 22G spinal needles were advanced under fluoroscopic guidance using AP and oblique views through the left L4/5 and L5/S1 foramina into the epidural space. Isovue 0.5mL was injected under live fluoroscopy at each level which demonstrated appropriate epidural spread without vascular uptake. After confirmation of negative aspiration, a total of 1mL of 2% PF lidocaine, 1mL of PF normal saline, and 10mg of PF dexamethasone (10mg/mL) were injected in equally divided doses through the needles. The needles were removed and a bandage applied. The patient was brought to the recovery area in stable condition and then monitored for an appropriate period of time. The patient was discharged home in good condition with post-procedure instructions. No apparent complications. Epidural injection procedure Physical Exam: vital signs Vital Signs 05/07/2023 9:14 EDT Heart Rate Monitored 57 bpm LOW Systolic Blood Pressure 119 mmHg Diastolic Blood Pressure 64 mmHg SpO2 96 % 05/07/2023 7:56 EDT Heart Rate Monitored 60 bpm SpO2 97 % 05/07/2023 7:56 EDT Temperature Axillary 36.5 DegC 05/07/2023 7:56 EDT Systolic Blood Pressure 115 mmHg Diastolic Blood Pressure 77 mmHg Mean Arterial Pressure, Monitered 90 mmHg 05/07/2023 7:56 EDT Respiratory Rate 16 br/min . [facility] Comment on above: Result Comment: Elec tronically Signed By: Hai JAY, Boy Wilson\.br\Date and Time Signed: 05/07/23 09:17 EDT Patient Correspondenceon Patient Correspondence [id number]#1.00TIFF [facility] Insurance Correspondence Off iceon 04-23-2023 Insurance Correspondence Office [id number]#2.00TIFF [facility] Consent for Treatmenton 04-07 Consent for Treatment [id number]#1.00TIFF Normal [facility] Consultation Noteon 04-19-20 Consultation Note Patient: MITESH BURGESS Age: 43 years Sex: Female : 1980 Associated Diagnoses: None Author: Ade Hennessy PA-C Subjective Chief complaint 04/19/2023 8:17 EDT low back pain . patient is a 43-year-old female. She presents today after a 7-month hiatus. She had her gabapentin increased at her last appointment but failed to follow-up. She cannot exactly express why but states that she had just been working a lot. At this time she is once again having lower back pain with left radiating leg pain that feels similar to before her injection that she had back last year. It goes all the way down to her foot. She rates it a 6/10. It affects her ambulatory status. It affects her quality of life. Affects her activities during the day and affects her ability to do the things she wants to do. She is bothered by this so she is here today to once again discuss her options. Previous physical therapy has failed. Previous left-sided L4-5 and L5-S1 transforaminal epidural steroid injection gave her 70 to 80% relief for approximately a year. At this time, for her fibromyalgia she continues on Lyrica. 300 mg twice daily. Tolerating well. No side effects. She takes as prescribed. It helps her. It also helps some of her radicular symptoms but unfortunate, not quite enough. Health Status Allergies: Allergic Reactions (Selected) Severity Not Documented Adhesive Bandage- Rash. Clindamycin- Itching. Codeine- Nausea. Latex- Rash., Allergies (4) Active Reaction Adhesive Bandage rash clindamycin Itching codeine Nausea Latex rash Current medications: (Selected) Prescriptions Prescribed albuterol HFA 90 mcg/inh MDI: 2 puff(s), Inhalation, QID Shortness of breath or wheezing, 1 EA, Refill(s) 0, qid and prn sob/wheezing, [id number], 160, cm, 04/27/20 22:06:00 EDT, Height/Length Dosing, 98, kg, 04/27/20 22:06:00 EDT, Weight Dosing off work: off work, See Instructions, 1 EA, 0, Patient had a procedure with our services. She should be excused from work for 10/30/21 and 10/31/21, Supply pregabalin 225 mg oral capsule: 225 mg = 1 cap(s), Oral, BID, # 60 cap(s), Refills(s) 2, Pharmacy: [facility] #[id number], 158, cm, 08/31/22 9:15:00 EST, Height/Length Dosing, 91.6, kg, 05/18/22 11:25:00 EST, Weight Dosing pregabalin 300 mg Cap: 300 mg = 1 cap(s), Oral, BID, # 60 cap(s), Refills(s) 1, Pharmacy: [facility]/pharmacy #[id number], 158, cm, 10/01/22 10:45:00 EDT, Height/Length Dosing, 90, kg, 10/01/22 10:45:00 EDT, Weight Dosing Documented Medications Documented Ingrezza 60 mg oral capsule: mg cap(s), Oral, Daily, Refills(s) 0 LIOTHYRONINE SOD 5 MCG TAB: LIOTHYRONINE SOD 5 MCG TAB Lamictal 25 mg Tab: 50 mg = 2 tab(s), Oral, Bedtime, Refills(s) 0, Seizure Lamictal: 200 mg, Oral, Bedtime, Refills(s) 0, Seizure Multi Vitamins oral tablet: 1 tab(s), Oral, Daily, Refill(s) 0, Prophylaxis Pristiq 100 mg Tab-ER: 200 mg = 2 tab(s), Oral, Daily, # 30 tab(s), Refills(s) 0, Depression Trokendi XR 100 mg oral capsule, extended release: TAKE 1 CAPSULE BY MOUTH EVERY DAY Vitamin C 500 mg Tab: 500 mg = 1 tab(s), Oral, Daily, Refills(s) 0, Prophylaxis Vitamin D3 2000 intl units: See Instructions, daily, Refills(s) 0 Zyrtec: 10 mg, Oral, Daily, PRN Allergy symptoms, Refills(s) 0 busPIRone 15 mg Tab: 15 mg = 1 tab(s), Oral, TID, Refills(s) 0, Anxiety calcium (as carbonate) 600 mg oral tablet: 600 mg = 1 tab(s), Oral, Daily, Refills(s) 0 hydrOXYzine pamoate 25 mg Cap: 25 mg = 1 cap(s), Oral, QID, PRN for anxiety, # 40 cap(s), Refills(s) 0 levothyroxine 50 mcg (0.05 mg) Tab: TAKE 1 TABLET BY MOUTH EVERY DAY potassium chloride: 40 mEq, Oral, Daily, Refills(s) 0 Problem list: All Problems Synovial cyst of lumbar spine / SNOMED CT 7592083514 / Confirmed Neuropathy / SNOMED CT 9613484706 / Confirmed Ascending aorta dilation / SNOMED CT 262574199 / Confirmed Anxiety / SNOMED CT 83926720 / Confirmed Bipolar disorder / SNOMED CT 80965177 / Confirmed Labral tear of shoulder / SNOMED CT 249655280 / Confirmed Resolved: At risk for falls / SNOMED CT 884323727 Problem added when Risk for Falls Careplan was initiated. Resolved due to patient discharge. Resolved: Migraine / SNOMED CT 19848859 Resolved: Seasonal allergies / SNOMED CT [id number] Objective Vital Signs 04/19/2023 8:17 EDT Peripheral Pulse Rate 96 bpm Respiratory Rate 16 br/min Systolic Blood Pressure 90 mmHg Diastolic Blood Pressure 60 mmHg Mean Arterial Pressure, Cuff 70 mmHg SpO2 100 % General: Alert and oriented, No acute distress. Overweight Sitting in a chair comfortably Eye: Normal conjunctiva. HENT: Normocephalic, Normal hearing. Cardiovascular: No edema. Musculoskeletal Normal range of motion. Normal strength. 5/5 lower extremity strength other than left hip flexion, ADF, and EHL 5 -/5 Positive left seated straight leg raise Integumentary: Warm, Dry, [place]. Neurologic: Alert, Oriented. Psychi (more content not included)... Normal [facility] Comment on above: Result Comment: Elec tronically Signed By: Ade Hennessy PA-C\.br\Date and Time Signed: 04/19/23 08:55 EDT\.br\Electronically Co-Signed By: Hai JAY, Boy Wilson\.br\Date and Time Co-Signed: 04/23/23 12:36 EDT Office/Clinic Note-Physician on 04-19-2023 Office/Clinic Note-Physician [id number]#1.00TIFF Normal [facility] Patient Correspondenceon Patient Correspondence [id number]#1.00TIFF Normal [facility] Patient Correspondence [id number]#1.00TIFF Normal [facility] Patient History Officeon Patient History Office [id number]#1.00TIFF [facility] Discharge Instructionson Discharge Instructions [id number]#[id number]:1 27 Normal [facility] ED Clinical Summaryon 2022 ED Clinical Summary (Inserted Image. Lucie ble to display) [place] [id number] ED Clinical Summary Person Information Name: MITESH BURGESS [facility] Age: 42 Years : 1980 Sex: Female Language: Maltese PCP: Tae Alcazar MD Marital Status: Phone: [phone] Visit Id: Visit Reason: Headache; Nausea; HEADACHE Speciality: Acuity: 3 Enc Type: Emergency Med Service: Emergency Arrival: 03/14/2023 21:26:36 Discharge: 03/15/2023 01:14:38 LOS: 000 03:48 Checkin: 03/14/2023 21:26:36 Checkout: 03/15/2023 01:14:38 Dispo Type: Home (Routine DC) EVENTS: Event Name Event Status Request Date/Time Start Date/Time Complete Date/Time Arrive Complete 03/14/2023 21:26:36 03/14/2023 21:26:36 03/14/2023 21:26:36 Document Home Meds Request 03/14/2023 21:26:36 Triage Complete 03/14/2023 21:26:36 03/14/2023 21:36:39 03/14/2023 21:36:39 Registration Complete 03/14/2023 21:29:07 03/14/2023 21:29:07 03/14/2023 21:29:07 Reg Complete Request 03/14/2023 21:29:07 Reg Bed Request Complete 03/14/2023 21:29:07 03/14/2023 21:29:07 03/14/2023 21:29:07 Bed Assign Complete 03/14/2023 22:52:28 03/14/2023 22:52:28 03/14/2023 22:52:28 Dr Exam Complete 03/14/2023 22:52:28 03/14/2023 22:55:23 03/14/2023 22:55:23 RN Exam Complete 03/14/2023 22:52:28 03/14/2023 23:15:33 03/14/2023 23:15:33 Registration Request 03/14/2023 22:55:23 Meds Admin Complete 03/14/2023 23:20:56 03/14/2023 23:42:37 Discharge Complete 03/15/2023 01:02:38 03/15/2023 01:14:43 03/15/2023 01:14:43 Transfer Complete 03/15/2023 01:14:43 03/15/2023 01:14:43 03/15/2023 01:14:43 ADDRESS: [address] [place] [address] DR NAOMI Baker [facility] [place] [id number] [facility] DOC NOTES: MEDICAL INFORMATION: Prescriptions Given: Medications to Continue with No Changes Other Medications albuterol (albuterol HFA 90 mcg/inh MDI) 2 Puffs Inhalation 4 times a day as needed Shortness of breath or wheezing. qid and prn sob/wheezing. Refills: 0. ascorbic acid (Vitamin C 500 mg Tab) 1 Tablets By Mouth every day. busPIRone (busPIRone 15 mg Tab) 1 Tablets By Mouth 3 times a day. calcium carbonate (calcium (as carbonate) 600 mg oral tablet) 1 Tablets By Mouth every day. cariprazine (Vraylar 4.5 mg oral capsule) TAKE 1 CAPSULE BY ORAL ROUTE 1 TIME PER DAY CHANGE IN DOSAGE. cetirizine (Zyrtec) 10 Milligram By Mouth every day as needed Allergy symptoms. cholecalciferol (Vitamin D3 2000 intl units) daily. desvenlafaxine (Pristiq 100 mg Tab-ER) 2 Tablets By Mouth every day. hydrOXYzine (hydrOXYzine pamoate 25 mg Cap) 1 Capsules By Mouth 4 times a day as needed for anxiety. lamotrigine (Lamictal 25 mg Tab) 2 Tablets By Mouth at bedtime. lamotrigine (Lamictal) 200 Milligram By Mouth at bedtime. levothyroxine (levothyroxine 50 mcg (0.05 mg) Tab) TAKE 1 TABLET BY MOUTH EVERY DAY. Misc Prescription (LIOTHYRONINE SOD 5 MCG TAB) 0. Misc Prescription (off work) Patient had a procedure with our services. She should be excused from work for 10/30/21 and 10/31/21. Refills: 0. multivitamin (Multi Vitamins oral tablet) 1 Tablets By Mouth every day. potassium chloride 40 Milliequivalent By Mouth every day. pregabalin (Lyrica 300 mg Cap) 1 Capsules By Mouth 2 times a day. Refills: 0. pregabalin (pregabalin 225 mg oral capsule) 1 Capsules By Mouth 2 times a day. Refills: 2. pregabalin (pregabalin 300 mg Cap) 1 Capsules By Mouth 2 times a day. Refills: 1. topiramate (Trokendi XR 100 mg oral capsule, extended release) TAKE 1 CAPSULE BY MOUTH EVERY DAY. PATIENT EDUCATION INFORMATION: Instructions: Migraine Headache Follow up: With: Address: When: Tae Alcazar [address] [place] [address], [facility] [place] [id number] [facility] (1) In 3 days 03/18/2023 Comments: Return to the emergency room if your headache recurs or any new symptoms. DIAGNOSIS: 1:Migraine headache [facility] ED Note-Physicianon 03-15-20 ED Note-Physician Basic Information Time Seen: Chandni Hart M.D. 03/14/2023 22:55 Chief Complaint Patient reports migraine starting this afternoon. Hx migraines. Reports nausea and photosensitivity History of Present Illness The patient is a 42-year-old female past medical history of migraine headache who presented to the emergency room with headache. The patient states the headache started this afternoon. The headache was gradual onset. The patient points to the front of her head goes to the top. The patient describes the headache as pounding. She rates a 7 out of 10. The patient states that this is similar to her previous migraine however more intense. She reports nausea but no vomiting. The patient states the light bothers her. She states the noise bothers her. She denies any fever, denies any chills. She denies any sore throat. The patient denies any other associated symptoms. Review of Systems Additional ROS info: Except as noted in the above Review of Systems and in the History of Present Illness all other systems have been reviewed and are negative or noncontributory. Physical Exam Vitals & Measurements T: 36.7 ?C(Oral) HR: 54(Monitored) RR: 16 BP: 118/77 SpO2: 95% HT: 161 cm WT: 95.7 kg BMI: 36.92 General: alert, no acute distress Skin: warm, dry Head: no trauma, normocephalic Neck: Trachea midline, no tenderness, supple, no meningeal signs Eye: normal conjunctiva, sclera clear, PERRL, EOMI, vision unchanged ENMT: Oral mucosa moist, no pharyngeal erythema or exudate Cardiovascular: regular rate and rhythm Respiratory: Lungs CTA, respirations non labored, breath sounds equal Gastrointestinal: soft, non distended, no tenderness, no guarding Extremities: no deformity, no trauma Neurological: Alert and oriented, CN II-XII intact, motor strength equal & normal bilaterally, sensation equal & normal bilaterally, speech normal, no focal neuro deficits, normal coordination, kerning and Brudzinski signs are negative Psychiatric: cooperative, affect appropriate for age, Medical Decision Making MEDICAL DECISION MAKING Number and Complexity of Problems Differential Diagnosis: [] [facility] Data External documents reviewed: [] My EKG interpretation: [] My CT interpretation: [] My X-ray interpretation: [] My Ultrasound interpretation: [] Decision rules/scores evaluated: [] Discussed with: [] Treatment and Disposition ED Course: The patient presented with migraine headache. This is typical one of her migraines other than slightly higher intensity. She rates it 7 out of 10. The patient has no meningeal signs. She is afebrile. The patient was given IV fluid, Toradol, Reglan and Benadryl and her headache almost completely resolved. The patient feels comfortable going home. She is instructed to return to the emergency room if her headache gets worse or any new symptoms. Shared decision making: [] Code status: [] Assessment/Plan 1. Migraine headache (G43.909: Migraine, unspecified, not intractable, without status migrainosus) Orders: diphenhydrAMINE, 25 mg = 0.5 mL, Injection, IV Push, Once, Stop date 03/14/23 23:20:00 EDT, STAT, Start date 03/14/23 23:20:00 EDT, 03/14/23 23:20:00 EDT ketorolac, 30 mg = 1 mL, Injection, IV Push, Once, Stop date 03/14/23 23:20:00 EDT, STAT, Start date 03/14/23 23:20:00 EDT, 03/14/23 23:20:00 EDT metoclopramide, 10 mg = 2 mL, Injection, IV Push, Once, Stop date 03/14/23 23:20:00 EDT, STAT, Start date 03/14/23 23:20:00 EDT, 03/14/23 23:20:00 EDT Sodium Chloride 0.9% intravenous solution, 500 mL, Soln-IV, IV, Once, Stop date 03/14/23 23:20:00 EDT, STAT, Start date 03/14/23 23:20:00 EDT, 500 mL/hr, Infuse over 1, hour(s) Medications Administered Given diphenhydrAMINE 50 mg/mL Inj, 25 mg, IV Push ketorolac 30 mg/mL Inj 1 mL, 30 mg, IV Push metoclopramide 5 mg/mL Inj, 10 mg, IV Push NS 500 ml Bolus, 500 mL, IV Disposition Plan Patient Discharge Condition Stable, improved Discharge Disposition Discharged home Discharge Prescription List Prescriptions No active prescription medications Follow-up With When Contact Information Tae Inge In 3 days 03/18/2023 EDT [address] [facility] [place] [address]- Business (1) Additional Instructions: Return to the emergency room if your headache recurs or any new symptoms. Patient Education Migraine Headache Problem List/Past Medical History Ongoing Anxiety Ascending aorta dilation Bipolar disorder Labral tear of shoulder Neuropathy Historical Migraine Seasonal allergies Procedure/Surgical History Injection of nerve root of lumbar spine using fluoroscopic guidance (08/14/2022), Injection of sacroiliac joint (01/16/2022), Injection of nerve root of lumbar spine using fluoroscopic guidance (10/30/2021), Injection of nerve root of lumbar spine using fluoroscopic guidance (04/17/2021), Amputation of finger tip (08/21/2011), Cholecystectomy (12/07/2003), (more content not included)... [facility] Comment on above: Result Comment: Elec tronically Signed By: Hailey Triana, Chandni White.chandan\Date and Time Signed: 03/15/23 03:33 EDT ED Patient Education Noteon 03-15-2023 ED Patient Education Note Neurology Migraine Headache A migraine headache is an intense, throbbing pain on one side or both sides of the head. Migraine headaches may also cause other symptoms, such as nausea, vomiting, and sensitivity to light and noise. A migraine headache can last from 4 hours to 3 days. Talk with your doctor about what things may bring on (trigger) your migraine headaches. What are the causes? The exact cause of this condition is not known. However, a migraine may be caused when nerves in the brain become irritated and release chemicals that cause inflammation of blood vessels. This inflammation causes pain. This condition may be triggered or caused by: ? Drinking alcohol. ? Smoking. ? Taking medicines, such as: ? Medicine used to treat chest pain (nitroglycerin). ? control pills. ? Estrogen. ? Certain blood pressure medicines. ? Eating or drinking products that contain nitrates, glutamate, aspartame, or tyramine. Aged cheeses, chocolate, or caffeine may also be triggers. ? Doing physical activity. Other things that may trigger a migraine headache include: ? Menstruation. ? . ? Hunger. ? Stress. ? Lack of sleep or too much sleep. ? Weather changes. ? Fatigue. What increases the risk? The following factors may make you more likely to experience migraine headaches: ? Being a certain age. This condition is more common in people who are 25?55 years old. ? Being female. ? Having a family history of migraine headaches. ? Being . ? Having a mental health condition, such as depression or anxiety. ? Being obese. What are the signs or symptoms? The main symptom of this condition is pulsating or throbbing pain. This pain may: ? Happen in any area of the head, such as on one side or both sides. ? Interfere with daily activities. ? Get worse with physical activity. ? Get worse with exposure to bright lights or loud noises. Other symptoms may include: ? Nausea. ? Vomiting. ? Dizziness. ? General sensitivity to bright lights, loud noises, or smells. Before you get a migraine headache, you may get warning signs (an aura). An aura may include: ? Seeing flashing lights or having blind spots. ? Seeing bright spots, halos, or zigzag lines. ? Having tunnel vision or blurred vision. ? Having numbness or a tingling feeling. ? Having trouble talking. ? Having muscle weakness. Some people have symptoms after a migraine headache (postdromal phase), such as: ? Feeling tired. ? Difficulty concentrating. How is this diagnosed? A migraine headache can be diagnosed based on: ? Your symptoms. ? A physical exam. ? Tests, such as: ? CT scan or an MRI of the head. These imaging tests can help rule out other causes of headaches. ? Taking fluid from the spine (lumbar puncture) and analyzing it (cerebrospinal fluid analysis, or CSF analysis). How is this treated? This condition may be treated with medicines that: ? Relieve pain. ? Relieve nausea. ? Prevent migraine headaches. Treatment for this condition may also include: ? Acupuncture. ? Lifestyle changes like avoiding foods that trigger migraine headaches. ? Biofeedback. ? Cognitive behavioral therapy. Follow these instructions at home: Medicines ? Take lcep-xaz-xetvudy and prescription medicines only as told by your health care provider. ? Ask your health care provider if the medicine prescribed to you: ? Requires you to avoid driving or using heavy machinery. ? Can cause constipation. You may need to take these actions to prevent or treat constipation: ? Drink enough fluid to keep your urine pale yellow. ? Take psld-xyc-wstygav or prescription medicines. ? Eat foods that are high in fiber, such as beans, whole grains, and fresh fruits and vegetables. ? Limit foods that are high in fat and processed sugars, such as fried or sweet foods. Lifestyle ? Do not drink alcohol. ? Do not use any products that contain nicotine or tobacco, such as cigarettes, e-cigarettes, and chewing tobacco. If you need help quitting, ask your health care provider. ? Get at least 8 hours of sleep every night. ? Find ways to manage stress, such as meditation, deep breathing, or yoga. General instructions ? Keep a journal to find out what may trigger your migraine headaches. For example, write down: ? What you eat and drink. ? How much sleep you get. ? Any change to your diet or medicines. ? If you have a migraine headache: ? Avoid things that make your symptoms worse, such as bright lights. ? It may help to lie down in a dark, quiet room. ? Do not drive or use heavy machinery. ? Ask your health care provider what activities are safe for you while you are experiencing symptoms. ? Keep all follow-up visits as told by your health care provider. This is important. Contact a health care provider if: ? You develop symptoms that are different or (more content not included)... Normal [facility] ED Patient Summaryon 023 ED Patient Summary (Inserted Image. Lucie ble to display) [place] [id number] Patient Discharge Instructions Person Information Name: MITESH BURGESS Age: 42 Years Arrival Date: 03/14/2023 21:26:36 Discharge Diagnosis: 1:Migraine headache Primary Care Physician: Tae Alcazar MD Provider Information Primary Provider: Chandni Hart M.D. Advanced Taping Supervisor:None The exam and treatment you received in the Emergency Department were for an urgent problem and are not intended as complete care. It is important that you follow up with a doctor, nurse practitioner, or physician?s assistant general manager for ongoing care. If your symptoms become worse or you do not improve as expected and you are unable to reach your usual health care provider, you should return to the Emergency Department. We are available 24 hours a day. MITESH BURGESS has been given the following list of patient education materials, prescriptions and follow-up instructions: Follow-up Instructions: With: Address: When: Tae Alcazar [address] [facility], [address] [place] [id number] Business (1) In 3 days 03/18/2023 Comments: Return to the emergency room if your headache recurs or any new symptoms. In the event that this physician does not participate in your insurance network, please consult with your insurance company to find a nearby participating provider. Patient Education Materials: Migraine Headache A MESSAGE TO ALL PATIENTS REGARDING OPIOIDS PRESCRIPTION OPIOIDS: WHAT YOU NEED TO KNOW Prescription opioids can be used to help relieve cpotwhbw-hc-luhrbk pain and are often prescribed following a surgery or injury, or for certain health conditions. These medications can be an important part of the treatment but also come with serious risks. It is important to work with your healthcare provider to make sure you are getting the safest, most effective care. WHAT ARE THE RISKS AND SIDE EFFECTS OF OPIOID USE? Prescription opioids carry serious risks of addiction and overdose, especially with prolonged use. An opioid overdose, often marked by slowed breathing, can cause sudden . The use of prescription opioids can have a number of side effects as well, even when taken as directed: ? Tolerance?meaning you might need to take more of the medication for the same pain relief ? Physical dependence?meaning you have symptoms of withdrawal when a medication is stopped ? Increased sensitivity to pain ? Constipation ? Nausea, vomiting, and dry mouth ? Sleepiness and dizziness ? Confusion ? Depression ? Low levels of testosterone that can result in lower sex drive, energy, and strength ? Itching and sweating RISKS ARE GREATER WITH: ? History of drug misuse, substance use disorder, or overdose ? Mental health conditions (such as depression or anxiety) ? Sleep apnea ? Older age (65 years and older) ? Avoid alcohol while taking prescription opioids. Also, unless specifically advised by your health care provider, medications to avoid include: ? Benzodiazepines (such as Xanax or Valium) ? Muscle relaxants (such as Soma or Flexeril) ? Hypnotics (such as Ambien or Lunesta) ? Other prescription opioids KNOW YOUR OPTIONS Talk to your health care provider about ways to manage your pain that don?t involve prescription opioids. Some of these options may actually work better and have fewer risks and side effects. Options may include: ? Pain relievers such as acetaminophen, ibuprofen, and naproxen ? Some medication that are also used for depression or seizures ? Physical therapy and exercise ? Cognitive behavioral therapy, a psychological, goal-directed approach, in which patients learn how to modify physical, behavioral, and emotional triggers of pain and stress. IF YOU ARE PRESCRIBED OPIOIDS FOR PAIN: ? Never take opioids in greater amounts or more often than prescribed. ? Follow up with your primary health care provider. o Work together to create a plan on how to manage your pain. o Talk about ways to help manage your pain that don?t involve prescription opioids. o Talk about any and all concerns and side effects. ? Help prevent misuse and abuse o Never sell or share prescription opioids. o Never use another person?s prescription opioids. ? Store prescription opioids in a secure place and out of reach of others (this may include visitors, children, friends, and family). ? Safely dispose of unused prescription opioids: Find your community drug take-back program or your pharmacy mail-back program, or flush them down the toilet, following guidance from the Food and Drug Administration (www.fda.gov/Drugs/Resour cesForYou). ? Visit www.cdc.gov/drugoverdose to learn about the risks of opioids abuse and overdose. ? If you believe you may be struggling with addiction, tell your health care director rn and ask for stacie (more content not included)... [facility] Prescriptions/Work Noteson 0 03-15-2023 Prescriptions/Work Notes [id number]:1 27 [facility] Consent for Treatmenton Consent for Treatment [id number]#[id number]:12 7 [facility] CNOVon 02-05-2023 CNOV Office Visit (NSCAMN ) ----- MITESH BURGESS ([id number]) 1980 F Date Time Provider Department 02/05/23 9:30 AM NATHANAEL RYAN NSCAMN During your visit today, we recorded the following information about you: Temperature Pulse Respiration Blood pressure 97.9 degrees 75/minute 18/minute 110/64 Weight Height 102.2 kg 1.595 m Ade Patten Ma 02/05/2023 9:45 AM Signed Additional intake questions: Has the patient had fever, nausea, vomiting, diarrhea, constipation, fatigue for > 1 week? No Does the patient have a decreased appetite? No Does patient want to see a It Compliance Manager? No (yes to any of above refer patient to schedulers for dietitian appointment) ) Does patient have any new or increased numbness or tingling of extremities? No Is patient interested in fertility information? No Does patient need any prescription refills? No Does patient have an advanced directive in place? No, Patient referred to Resource Center Electronically Signed By: Nathanael Griffin Ma, MD 02/05/2023 11:43 AM Signed [facility] New Patient Consultation Referred by Stalin Reyes [id number] [place] [id number] Diagnosis: skull hemangioma Subjective History of Present Illness: 42 years old female patient with Migraine: She had chronic migraine with dizziness/vertiginous symptoms. She used to be on Emgality which controled the headache. She stopped it 6 months to a year ago. Headache is daily now with dizziness, photophobia and phonophobia. Sometimes she feels nausea. Topamax was started by PCP at 100mg daily but it only takes the edge off. Refrred by her neurologist Stalin Diaz for opinion regarding the skull mass. Therapy Status Data Form Past Medical History: PAST MEDICAL HISTORY Diagnosis Date Acquired cyst of kidney Acute costochondritis Anxiety associated with depression Bronchospasm Chest pain Depression Near syncope Pleurisy Past Surgical History: PAST SURGICAL HISTORY Procedure Laterality Date AMP /TH 07/09 JT/PHALANX W/NEURECT W/DIR CLSR CARDIAC CATHETERIZATION HX 05/01/15 Preserved ejection fraction. Normal coronary arteries. CARPAL TUNNEL right wrist CHOLECYSTECTOMY PAST SURGICAL HISTORY OF botox injections for migraines VAGINAL HYSTERECTOMY UTERUS 250 GM/< Family History: FAMILY HISTORY Problem Relation Age of Onset Heart Mother valvular problems None Father None Sister Social History Tobacco Use Smoking status: Never Smokeless tobacco: Never Substance Use Topics Alcohol use: Yes Comment: occassional Drug use: No Allergies: Adhesive Tape (Rosins); Clindamycin; Codeine; Latex, Natural Rubber; and Seasonal Allergies Current Outpatient Medications Medication Sig valbenazine (INGREZZA) 60 mg capsule Take 80 mg by mouth once daily. diclofenac, EC, (VOLTAREN) 75 mg EC tablet Take 75 mg by mouth once daily. levothyroxine (SYNTHROID) 75 mcg tablet Take 1 tablet by mouth every afternoon. liothyronine (CYTOMEL) 5 mcg tablet Take 4 tablets by mouth every afternoon. galcanezumab-gnlm (EMGALITY PEN) 120 mg/mL pen Inject 1 mL under the skin once every month. Do not shake. meclizine (ANTIVERT) 12.5 mg tab Take 1 tablet by mouth twice daily as needed. QUEtiapine (SEROQUEL) 50 mg tablet Take 50 mg by mouth daily at bedtime. lamoTRIgine (LAMICTAL) 25 mg tablet daily at bedtime. Takes 2 tabs along with 200 mg busPIRone HCl 30 mg tablet twice daily. dicyclomine (BENTYL) 10 mg capsule Take 10 mg by mouth. ondansetron orally disintegrating (ZOFRAN ODT) 4 mg disintegrating tablet as needed. desvenlafaxine ER (PRISTIQ) 100 mg 24 hr tablet once daily. Takes 2 tabs cetirizine (ZYRTEC) 10 mg tablet lamoTRIgine (LAMICTAL) 200 mg tablet No current facility-administered medications for this visit. Objective Physical Exam: BP 110/64 Pulse 75 Temp 97.9 Resp 18 Ht 5' 2.795 (1.60m) Wt 225 lb 4.8 oz (102.2kg) SpO2 99% BMI 40.17 kg/(m2). General appearance: well appearing, in no acute distress, alert PE Neuro: AANDO x3. CN II-XII grossly intact. Motor: appropriate muscle bulk, tone, and strength. Sensorium: grossly intact. Gait: Unremarkable Karnofsky performance status: 90 - Able to carry on normal activity, minor signs or symptoms of disease. PHQ 2 and 9 Total Scores 06/24/2018 PHQ-2 Score 5 PHQ-9 Score 22 Labs: CBC Latest Ref Rng AND Units 08/07/2017 08/29/2017 09/04/2017 WBC 3.70 - 11.00 k/uL 3.62(L) 4.94 4.11 RBC 3.90 - 5.20 m/uL 4.14 3.89(L) 4.12 HEMOGLOBIN 11.5 - 15.5 g/dL 13.2 12.5 13.1 HEMATOCRIT 36.0 - 46.0 % 39.1 35.6(L) 38.6 MCV 80.0 - 100.0 fL 94.4 91.5 93.7 MCH 26.0 - 34.0 pG 31.9 32.1 31.8 MCHC 30.5 - 36.0 g/dL 33.8 35.1 33.9 RDW-CV 11.5 - 15.0 % 13.2 13.0 13.0 PLATELETS 150 - 400 k/uL 222 242 240 MPV 9.0 - 12.7 fL 9.0 9.0 9.1 B (more content not included)... Normal [facility] MRI BRAIN WO/W IVCONon 01-24 MRI BRAIN WO/W IVCON * * *Final Report* * * DATE OF EXAM: Jan 24 2023 2:18PM LNM 0295 - MRI BRAIN WO/W IVCON / PROCEDURE REASON: Brain tumor (HCC) * * * * Physician Interpretation * * * * EXAMINATION: MRI BRAIN WO/W IVCON HISTORY: Brain tumor (HCC) Per the electronic medical record: PMH chronic migraine stopped Emgality half year ago, anxiety, depression, skull mass, seen in the [facility] for: Dizziness, headache and tremor 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 TECHNIQUE: Routine brain MRI protocol without and with contrast including diffusion and gradient echo images. MQ: [id number]_2 Contrast: 20 mL Dotarem IV COMPARISON: None. Reported prior outside MRI brain from 02/2022 is not currently available for review or comparison. RESULT: Acute Change: There is no evidence of restricted diffusion to suggest an acute infarct. Hemorrhage: No evidence of prior parenchymal hemorrhage on the gradient echo images. Mass Lesion/ Mass Effect: No evidence of an intracranial mass or extra-axial fluid collection. No abnormal parenchymal or leptomeningeal enhancement is noted following contrast administration. No significant mass effect. Chronic Change: Few punctate foci of FLAIR hyperintensity in the supratentorial white matter which are nonspecific and minimal in extent for age, may reflect minimal subtle sequelae of remote insult, minimal chronic microangiopathic change, or sequelae of vascular mediated migraines. Parenchyma: No significant volume loss for age. The brain parenchyma is otherwise within normal limits of signal intensity and morphology. Ventricles: Normal caliber and morphology. Skull Base/calvarium: Hypothalamic and pituitary region are grossly normal. Craniocervical junction is normal. No significant marrow replacement process. Left calvarial lesion measuring 2.7 x 0.9 cm (AP by TRV), which demonstrates intrinsic T1 hyperintensity, T2/FLAIR hyperintensity, and superimposed patchy enhancement, most compatible with intraosseous hemangioma given the intrinsic T1 hyperintensity. This extends to the inner table, with perhaps minimal expansion of the calvarium, but no definite cortical discontinuity or underlying dural based enhancement. Vasculature: Major intracranial arterial structures, and dural venous sinuses show typical flow void, suggesting patency by spin echo criteria. Other: The visualized paranasal sinuses and mastoid air cells are essentially clear. The orbits and extracranial soft tissues are unremarkable. IMPRESSION: No acute intracranial abnormality. No pathologic enhancement. Few punctate foci of FLAIR hyperintensity in the white matter, which are nonspecific; see above. Otherwise unremarkable enhanced MRI appearance of the brain. 2.7 cm enhancing lesion in the left parietal calvarium, which demonstrates intrinsic T1 hyperintensity and is most compatible with intraosseous hemangioma. Cooker Sulfite: DONNELL Transcribe Date/Time: Jan 24 2023 2:35P Dictated by : DONAL BURNS MD This examination was interpreted and the report reviewed and electronically signed by: DONAL BURNS MD on Jan 24 2023 2:42PM EST [id number] Normal [facility] CNPDeann 12-18-2022 CNPN Telephone (MNOPRX) ----- MITESH BURGESS ([id number]) 1980 F Date Time Provider Department 12/18/22 MURTAUGH, EDILBERTO MNOPRX During your visit today, we recorded the following information about you: Edilberto Tirado RN 12/18/2022 4:55 PM Signed [facility] received prescription(s) for Emgality 120MG/ML auto-injectors (migraine). Benefits investigation was conducted, indicating that a prior authorization is required. PA was initiated and pending review through [employer]. All pertinent clinical information was submitted to insurance. CMM Garcia: [id number] Ordering Provider: MD Celestino Etienne Alisha, STELLA [facility] P: , F: Edilberto Tirado RN 12/20/2022 3:59 PM Signed Ambulatory Pharmacy Prior Authorization Note Provider Intervention Required?: No- Pharmacy completed on your behalf. Rx Plan: Medicaid [facility] ([facility]) Drug: Emgality 120MG/ML auto-injectors (migraine) Cover Meds Garcia: [id number] Determination: Approved Prior Authorization/Case #: n/a Prior Authorization Expiration: 06/15/23 Time to PA Submission in CMM: 15 min Time to PA Determination in CMM: 2 days Additional Information: PLEASE NOTE: Pt will need follow up office visit to review/document efficacy and tolerability of treatment before prior auth expiration. Please ensure a future follow up appt is scheduled with your patient. This will ensure no interruption in patient's ability to obtain medication refills. Prescriptions will now be processed through [facility] for determination of next steps. For questions relating to this submission, please contact [facility] at [phone] Allergies As of Date: 12/18/2022 Noted Allergy Reaction ADHESIVE TAPE (ROSINS) 03/25/2018 9 - Itching CLINDAMYCIN 9 - Itching CODEINE 05/12/2015 16 - Unknown LATEX, NATURAL RUBBER 03/25/2018 9 - Itching SEASONAL ALLERGIES 05/12/2015 16 - Unknown Date Reviewed: 12/17/2022 Reviewed by: Mary Matta MA - Fully Assessed Reason for Visit: Insurance Authorization [[id number]] Cmt: Emgality 120MG/ML auto-injectors (migraine) Prescriptions as of 12/20/2022 - galcanezumab-gnlm (EMGALITY PEN) 120 mg/mL pen Inject 1 mL under the skin once every month. Do not shake. - galcanezumab-gnlm 120 mg/mL subcutaneous pen injector (EMGALITY) Inject 2 mL subcutaneously one time only for 1 dose. Do not shake. Loading dose - meclizine (ANTIVERT) 12.5 mg tab Take 1 tablet by mouth twice daily as needed. - QUEtiapine (SEROQUEL) 50 mg tablet TAKE 1 TABLET BY MOUTH EVERYDAY AT BEDTIME - lamoTRIgine (LAMICTAL) 25 mg tablet daily at bedtime. Takes 2 tabs along with 200 mg - busPIRone HCl 30 mg tablet twice daily. - dicyclomine (BENTYL) 10 mg capsule Take 10 mg by mouth. - ondansetron orally disintegrating (ZOFRAN ODT) 4 mg disintegrating tablet as needed. - desvenlafaxine ER (PRISTIQ) 100 mg 24 hr tablet once daily. Takes 2 tabs - cetirizine (ZYRTEC) 10 mg tablet - lamoTRIgine (LAMICTAL) 200 mg tablet Problem List As Of Date 12/18/2022 Noted Resolved Pleurisy [R09.1] 05/12/2015 Acute idiopathic pericarditis [I30.0] 05/12/2015 Chest pain on breathing [R07.1] 05/12/2015 Other neutropenia (HCC) [D70.8] 08/12/2017 Intractable chronic migraine without aura and w*03/25/2018 Cervicalgia [M54.2] 03/18/2019 Essential tremor [G25.0] 12/17/2022 Dizziness [R42] 12/17/2022 Anxiety [F41.9] 12/17/2022 Depression [F32.A] 12/17/2022 Encounter Status:Closed by EDILBERTO TIRADO on 12/20/[address] [facility] Margarita 12-17-2022 CNOV Office Visit (NEADFV ) ----- MITESH BURGESS ([id number]) 1980 F Date Time Provider Department 12/17/22 1:30 PM STALIN REYES During your visit today, we recorded the following information about you: Pulse Blood pressure Weight Height 71/minute 103/72 101.2 kg 1.6 m Stalin Reyes MD 12/17/2022 2:28 PM Signed [facility] Follow up/ Established patient visit Individuals who were included in, or assisted with the encounter were: Mitesh Kendall Jenifer Reyes MD Chief Complaint/Issues: Mitesh Burgess is a 42 year old R handed female w [facility] chronic migraine stopped Emgality half year ago, anxiety, depression, skull mass, seen in the [facility] for: Dizziness, headache and tremor Most Recent Neurological Assessment and Plan: Last Filed Values None HPI/Interval History: Patient is new to me. She used to follow w headache clinic but hasn't done so since 2020. Tremor: She has been having tremor for at least 4 years. Mostly in right hand. Her grandma has essential tremor. It gets worse when her anxiety hits. Vertigo: comes and goes for 6 months. It worsened a month ago. She feels room spinning and unsteady. With diplopia sometimes. It can be triggered by turning her headache and standing up. It may last for several hours. No LOC. Migraine: She had chronic migraine with dizziness/vertiginous symptoms. She used to be on Emgality which controled the headache. She stopped it 6 months to a year ago. Headache is daily now with dizziness, photophobia and phonophobia. Sometimes she feels nausea. Topamax was started by PCP at 100mg daily but it only takes the edge off. She is on Lamotrigine 300mg daily. Buspirone 30mg bid, She ws restarted on seroquel 25mg recently. OSH MRI 02/24/2022 1. Normal MRI appearance of the brain. 2. Nonspecific lesion within the left parietal bone which appears confined to the marrow cavity; hemangioma versus red-yellow marrow changes versus tumor. Consider CT of the head for additional evaluation of the calvarium, follow-up MRI of the brain in 3 months to document stability versus change. General Examination: BP 103/72 Pulse 71 Ht 160 cm (5' 3 ) Wt 101.2 kg (223 lb) SpO2 100% BMI 39.50 kg/m? General: Awake, alert, interactive, no acute distress, good nutritional status, normal development, well-kept HEENT: Head: normocephalic, no dysmorphism Eyes: normal Oropharynx: normal Neck: Carotid bruit: absent Movements: free Lymphadenopathy: absent Extremities: Deformity/contracture: absent Distal pulses: present Edema: absent Trophic change: absent Spine: Deformity: absent Heart: Regular S1 S2 normal Lungs: Clear to auscultation Abdomen: Soft, nontender Neurological Exam Mental Status Alert, fully oriented, attentive, with fluent speech but psychologically slow Cranial Nerves Visual rodriguez intact. Fundi with normal discs and vasculature. Pupils reactive. Extraocular movements conjugate and full. No ptosis. No nystagmus. Facial sensation intact. Face symmetric and strong. Palate and tongue normal. XI normal. Motor Examination and Coordination Motor examination with normal bulk, strength and tone. No drift. Normal rapid alternating movements and coordination. High-frequency fine tremor in the right hand gait is distractible and slightly more pronounced with action and posture. Reflexes Deep tendon reflexes graded by MRC Deep Tendon Reflexes Right Left Biceps 2+ 2+ Triceps 2+ 2+ Brachioradialis 2+ 2+ Patellar 2+ 2+ Achilles 2+ 2+ Plantar Downgoing Downgoing Sensation Sensation intact to light touch, pinprick, proprioception and vibration. Gait Arises easily. Casual gait and Romberg are normal. Can rise on heels and toes. Assessment AND Plan 12/17/2022 - General Neurology, Stalin Reyes MD ASSESSMENT Miteshbon Burgess is a 42 year old R handed female w PMH chronic migraine stopped Emgality half year ago, anxiety, depression, skull mass, seen in the [facility] for: 1. Dizziness, headache and tremor --Tremor: It appears like essential tremor. I do not see Parkinsonism at this time except that she does have psychomotor slowing. She is on multiple medications for her psychiatric disease which may cause tremor. She also has family history of essential tremor. We will observe her over time. I also asked her to talk with her psychiatrist to see whether her psych medication can be consolidated. --Dizziness: I think this is associated with her chronic migraine. She was on Emgality. It was stopped 6 months to a year ago and her headache and dizziness returned. I will restart her Emgality at this time. Meanwhile, we will give her meclizine for symptomatic management. --Skull mass: She had MRI brain with without contra (more content not included)... Normal [facility] Medicine Office/Clini c Noteon 11-20-2022 Family Medicine Office/Clinic Note Chief Complaint [employer] left ankle pain HPI Staff Pt 42 yo female presents with poss ankle sprain Onset- yesterday Location- left Injury- lost balance and turned foot wrong way, inward roll Pain- 6/10, sore worse with movement, weight bearing better with rest Characteristics- little swollen Treatment- ice, tylenol History of Present Illness I have reviewed and verified the staff HPI to be accurate for this encounter. Review of Systems PHQ Score Initial Depression Screen Score: 0 Physical Exam Vitals & Measurements T: 36.5 ?C(Oral) HR: 76(Peripheral) BP: 122/84 SpO2: 98% HT: 63 in HT: 161 cm WT: 94.7 kg WT: 208.34 lb BMI: 36.53 General: _ Pleasant, obese female in no acute distress. Eyes: _ Patient wears corrective lenses. Musculoskeletal: _Steady gait on ambulation to and from exam room. There is very mild edema noted to the left lateral ankle that is nonpitting. No redness, or ecchymosis noted. Range of motion limited on inversion and extension due to patient's discomfort. Generalized discomfort on palpation of the lateral ankle area. No point tenderness to the lateral malleolus. Extremity: _ Left lower extremity is pink, warm to the touch. Brisk cap refill. Sensation intact. Left dorsalis pedis 3+. Mental Status: Alert and oriented x3. Normal mood and affect Assessment/Plan 1. Sprain of lateral ligament of ankle joint (S93.409A: Sprain of unspecified ligament of unspecified ankle, initial encounter) History and exam consistent with mild ankle sprain. Will Rx 800 mg ibuprofen. May use Tylenol for breakthrough pain. Recommend rest, ice, elevation. Gentle stretching and range of motion as tolerated. Follow-up with PCP if not gradually improving over the next 2 weeks, sooner if worsening. Patient verbalized understanding of treatment plan. Ordered: ibuprofen, 800 mg = 1 tab(s), Oral, q8hr, with food or milk, X 14 day(s), # 42 tab(s), Refills(s) 0, Pharmacy: [facility]/pharmacy #[id number], 161, cm, 11/20/22 10:14:00 EDT, Height/Length Dosing, 94.7, kg, 11/20/22 10:14:00 EDT, Weight Dosing 2. BMI 36.0-36.9,adult (Z68.36: Body mass index [BMI] 36.0-36.9, adult) The standard range for ages 18 and older is >=18.5 and < 25 kg/m2. Your BMI today was above this range, this falls in the overweight to obese category and there are medical benefits to weight loss. We can offer counselling, referral, and/or medical support in addressing this problem. Your BMI and weight management will be followed at subsequent visits. Ordered: Body Mass Index (BMI) documented 3008F 3. Obesity (E66.9: Obesity, unspecified) see #2, diet/activity Follow-up No qualifying data available Patient Education Ankle Sprain, Phase I Rehab Ankle Sprain BMI for Adults Problem List/Past Medical History Ongoing Anxiety Ascending aorta dilation Bipolar disorder Labral tear of shoulder Neuropathy Historical Migraine Seasonal allergies Procedure/Surgical History Injection of nerve root of lumbar spine using fluoroscopic guidance (08/14/2022), Injection of sacroiliac joint (01/16/2022), Injection of nerve root of lumbar spine using fluoroscopic guidance (10/30/2021), Injection of nerve root of lumbar spine using fluoroscopic guidance (04/17/2021), Amputation of finger tip (08/21/2011), Cholecystectomy (12/07/2003), Hysterectomy, Ligament repair. Medications albuterol HFA 90 mcg/inh MDI, 2 puff(s), Inhalation, QID, PRN busPIRone 15 mg Tab, 15 mg= 1 tab(s), Oral, TID calcium (as carbonate) 600 mg oral tablet, 600 mg= 1 tab(s), Oral, Daily hydrOXYzine pamoate 25 mg Cap, 25 mg= 1 cap(s), Oral, QID, PRN ibuprofen 800 mg Tab, 800 mg= 1 tab(s), Oral, q8hr Ingrezza 60 mg oral capsule, Oral, Daily Lamictal, 200 mg, Oral, Bedtime Lamictal 25 mg Tab, 50 mg= 2 tab(s), Oral, Bedtime levothyroxine 50 mcg (0.05 mg) Tab LIOTHYRONINE SOD 5 MCG TAB, 0 Multi Vitamins oral tablet, 1 tab(s), Oral, Daily off work, See Instructions potassium chloride, 40 mEq, Oral, Daily pregabalin 225 mg oral capsule, 225 mg= 1 cap(s), Oral, BID, 2 refills pregabalin 300 mg Cap, 300 mg= 1 cap(s), Oral, BID, 1 refills Pristiq 100 mg Tab-ER, 200 mg= 2 tab(s), Oral, Daily Trokendi XR 100 mg oral capsule, extended release Vitamin C 500 mg Tab, 500 mg= 1 tab(s), Oral, Daily Vitamin D3 2000 intl units, See Instructions Vraylar 4.5 mg oral capsule Zyrtec, 10 mg, Oral, Daily, PRN Allergies Adhesive Bandage (rash) Latex (rash) clindamycin (Itching) codeine (Nausea) Social History Alcohol - Denies Alcohol Use, 02/12/2017 Current, 04/27/2020 Substance Abuse - Denies Substance Abuse, 10/23/2016 Tobacco - Denies Tobacco Use, 10/23/2016 Never (less than 100 in lifetime) Tobacco Use:. Never Smokeless Tobacco Use:., 11/20/2022 Family History Asthma: Mother. Bipolar: Sister. Hyperthyroidism: Mother. Immunizations Vaccine Date Status diphtheria/pertussis, acel/tetanus adult 09/12/2022 Recorded influenza virus vaccine, inactivated (more content not included)... Normal [facility] Comment on above: Result Comment: Elec tronically Signed By: AMADOU Muller APRN, [place] X\.br\Date and Time Signed: 11/20/22 10:38 EDT Patient Educationon 11-21-19 Patient Education Nutrition BMI for Adults What is BMI? Body mass index (BMI) is a number that is calculated from a person's weight and height. BMI can help estimate how much of a person's weight is composed of fat. BMI does not measure body fat directly. Rather, it is an alternative to procedures that directly measure body fat, which can be difficult and expensive. BMI can help identify people who may be at higher risk for certain medical problems. What are BMI measurements used for? BMI is used as a screening tool to identify possible weight problems. It helps determine whether a person is obese, overweight, a healthy weight, or underweight. BMI is useful for: ? Identifying a weight problem that may be related to a medical condition or may increase the risk for medical problems. ? Promoting changes, such as changes in diet and exercise, to help reach a healthy weight. BMI screening can be repeated to see if these changes are working. How is BMI calculated? BMI involves measuring your weight in relation to your height. Both height and weight are measured, and the BMI is calculated from those numbers. This can be done either in [place]ese ([place] or metric measurements. Note that charts and online BMI calculators are available to help you find your BMI quickly and easily without having to do these calculations yourself. To calculate your BMI in [place]ese ([place] measurements: 1. Measure your weight in pounds (lb). 2. Multiply the number of pounds by 703. ? For example, for a person who weighs 180 lb, multiply that number by 703, which equals 126,540. 3. Measure your height in inches. Then multiply that number by itself to get a measurement called inches squared. ? For example, for a person who is 70 inches tall, the inches squared measurement is 70 inches x 70 inches, which equals 4,900 inches squared. 4. Divide the total from step 2 (number of lb x 703) by the total from step 3 (inches squared): 126,540 ? 4,900 = 25.8. This is your BMI. To calculate your BMI in metric measurements: 1. Measure your weight in kilograms (kg). 2. Measure your height in meters (m). Then multiply that number by itself to get a measurement called meters squared. ? For example, for a person who is 1.75 m tall, the meters squared measurement is 1.75 m x 1.75 m, which is equal to 3.1 meters squared. 3. Divide the number of kilograms (your weight) by the meters squared number. In this example: 70 ? 3.1 = 22.6. This is your BMI. What do the results mean? BMI charts are used to identify whether you are underweight, normal weight, overweight, or obese. The following guidelines will be used: ? Underweight: BMI less than 18.5. ? Normal weight: BMI between 18.5 and 24.9. ? Overweight: BMI between 25 and 29.9. ? Obese: BMI of 30 or above. Keep these notes in mind: ? Weight includes both fat and muscle, so someone with a muscular build, such as an athlete, may have a BMI that is higher than 24.9. In cases like these, BMI is not an accurate measure of body fat. ? To determine if excess body fat is the cause of a BMI of 25 or higher, further assessments may need to be done by a health care provider. ? BMI is usually interpreted in the same way for men and women. Where to find more information For more information about BMI, including tools to quickly calculate your BMI, go to these websites: ? Centers for Disease Control and Prevention: www.cdc.gov ? [place] Heart Association: www.heart.org ? National Heart, Lung, and Blood [place]: www.nhlbi.nih.gov Summary ? Body mass index (BMI) is a number that is calculated from a person's weight and height. ? BMI may help estimate how much of a person's weight is composed of fat. BMI can help identify those who may be at higher risk for certain medical problems. ? BMI can be measured using Maltese measurements or metric measurements. ? BMI charts are used to identify whether you are underweight, normal weight, overweight, or obese. This information is not intended to replace advice given to you by your health care provider. Make sure you discuss any questions you have with your health care provider. Document Revised: 03/16/2020 Document Reviewed: 01/22/2020 [employer] Patient Education ? 2022 [employer] Orthopedics Ankle Sprain, Phase I Rehab An ankle sprain is an injury to the ligaments of your ankle. Ankle sprains cause stiffness, loss of motion, and loss of strength. Ask your health care provider which exercises are safe for you. Do exercises exactly as told by your health care provider and adjust them as directed. It is normal to feel mild stretching, pulling, tightness, or discomfort as you do these exercises. Stop right away if you feel sudden pain or your pain gets worse. Do not begin these exercises until told by your health care provider. Stretching and pgmwm-mc-bynyti exercises These exercises warm up your muscles and joints and improve the movement and flexibility of you (more content not included)... Normal [facility] Patient Letter FTon 2022 Patient Letter [facility] (Inserted Image. Lucie ble to display) November 20, 2022 MITESH BURGESS [address] [place] [address] Please excuse MITESH BURGESS from work . Date and/or Time of Absence: 11/19/22 Restrictions: None Comments: Please excuse due to an acute illness. Provider Signature: Yamile Muller APRN, HAND BINDER [employer]IPPER-C Nurse Practitioner [address] [place] [address] [place] [address] Normal [facility] Office Visiton 10-13-2022 Follow-up visit [id number] Georgia Burgess 1980 F Date Provider Department Center 10/13/2022 [facility] OR[facility] MP[facility]THO No family history on file Level of Service:57038 SC OFFICE/OUTPATIENT ESTABLISHED MOD MDM 30-39 MIN (57,GC) Reason for Visit and Comments: Follow-up [[id number]] Normal [facility] Coding Summary.on 10-03-2022 Coding Summary. CD:[id number] Ww+PG hlYWQ+PA3JYWTsA71qcNNhsX9 tY2ZSHPmGGvoiPHSXUWpSYzWc upMjHV7wkETxJLDt IC8+BL0bGYPhXcibnGNim7E4y XK3Q88ytx8qWXekpJB3TQKdDn Eawghrj3eqmTh8LKfpWdfbRlB t WJTwjI22VZA8lV82Ij40iMSth ROju4onwZm2LqIkUXMeNLG7mW cgIWiwi2SnEAKrF18bfLNoc8N 6 YEOztToijTQdAcUmvVW0hO4sF Yxqxwtyj6erckwfHst5rk56dQ Jla3K3yYF7C9GaosD6FYEjwYA g PsorvZAKeU2tluudn6cyzlatX pQtTBNlCMw0CZn3UQHssRkkWz SqKI72PRI5QJAuvrSkW4NlDXU s rKpjAwL5t3I6Nj8DG6UWBskwF 1VNTUFSWTwvdGQ+AL43ad19C0 LyAbszWvj4LHJjPIU9eXZ1wA4 n IVWvRYowh4X8yXP0U6MguqSaq d8ae0exBKNaMVqoE70xaYKti9 Q9EHCmaHU9JWUfaYuqWtXvwF8 3 Oyc+UITwfMvwn3SuDetuj8xfw 7oedAi9YjclTIEtzzWmwIkpSW G0p5UyKq4mZVQkuJY0tEA6wS8 i UjSsTlM8MRnmO031CoHkgJFeD onnP03mT8YtbQC+GZGySmm8EJ KsvOmdOM3aH8NySLDgfjhfjEO m hQbdGX0uBITypsijARHzbN4xQ CWjX9y4CrTfOzE8IYtsY1KtUM AejzhjRg81kJ7jAmRlYrX9AXj u Y6PvmqV3IPDloFZxDXtiVVI1L 66ed9Z3HSZbDQNaDVT7jIT7lD 1hbGlnbjogbGVmdDsgdmVydGl j XJcgWTezN061PSIalPqhBbNlS GluZyBEYXRlOiAgMDMvMjkvMj AyMzwvdGQ+MPGbXQT9vLdvGJN n cJZhKTldHe1oyDybhNjoUT2iZ WFaasedEKTqyZ5xESMnpQIofW pcZH3oNAAycicmh086JkQjGZQ 0 QTYekFOdB0MhlJ7bLkUiKFAlL FTnN2UlzIKuSVdvW977NArsZc M3KQGjciFvV4AdLFTdmNutEvS 0 p4E5Ne1Qi8YiqqibZ7BnyIPcT kOaSvppFKs5J7RaZejeaJQ+PC 27IYOsJC58ABm5VDS9iAuoNUp i YFJcW3YihY5vVmZsFCXuJKVuW yc+PHRhYmxlIHdpZHRoPScxMD VcQqJynHjlMB6iEj5lFRKmWXK v fVwetHQdUaGxa3yrNRVnHNqrT T0zkWmtK8IxeJH1NSHcb3m8Bi 36P74iD9NymMD+QOXslKC4mXT 0 hK8pWcQxYeA8TZrpJ853XxOmm ONyPfncu1uts5lrgJd0GqR8NW JgmlVfsKwdQRK2t5PgDd52N17 s IHdpZHRoPSIxNSUiIHZhbGlnb m9vkA5tXg2+QHEtyYR3pJZ9pD 3sXwZxBfL7ZBxsC704OiRchMA v Evgsa2ays9awkCu4ClJgLNUpg xMcbSavFJZ9y7JlYk56A6GzfN njl6AvQuk2yv16iSHce4N5lXN 9 K9BcDTRvuifbkLWysOniJM0xY MEjrjtcMLMvfS5tSKLpJ6l7Fw BcHxJ6GUniN1UlebH1CPSsgYV g RRSmzFLTrO0vkmzej4emevvcV iYnSKJqIOw7BQj4NYPcxQvwLv MjYBP0TdZ1RLG7hXFbrO5mmYd n abrnyH5fQij+FKE9iAPflNHQA X0cFryhmDZ+FXSoVFN5rLxqFE qwWDQfwD0nQPQvO3m0EnWlJnE 1 YZgzA6NhcrB3IGJrkDVoHANgt PNVhT1upxhbo6huclmqHtBrRS RsCMw8XWn1BZDgoXalYbRrXCV 0 TkJ2QDR9hAJshQ4boRbgznnqt G9wOyc+ObhqwLfnSQE8TUg3W3 BhCun7WFEpiFvhNZ3saXGbUQr u Mk1amRvtjMnyHE4pXHFuulhfn 813NnPnc3yxNCQgfAZwHTnmSZ E8G77fi9Y5CSSnUUOfJGK3bXT 4 bB3ptFzvhmbgsWVveNvfkmArh FnxYCucLUtuB880TTOqbHytLy HbNCw7Z5UiEiz8PFMgbAwkSU9 n oEYoPLnbLi6xaZykyEzbXA2kI HEgmqlpd276XbPyz5wrFHCcrT RcRAdsONK2Z07bu0Q9MKYkHON w FRI6fMG0jJ3waEbfiiyewWBkg NuiljOfmQcxVYbpPLgqI361KS KskJhcJhGuhVa7G8CnLvy6KGP z lFbwRP0bbLWqXWplEt7fmNrdh HzsPP8vKWHrasusm173GpVot0 rpNTUacARxINcbUEI8B58ck7V 6 LWQhQOJrDOU4eJS6dL4glImjo jogbGVmdDsgdmVydGljYWwtYW taJ609XTHltIxjGeYetYvrzhZ g RIpsEBz2Y5TwRxzypGT+PC90Y BIvXX54yIRysCGao3grhZq4Ix GjMQSgUDZ0gFwjIKppb1XqHVH t E84bcAVhk4E6SNWolAtanQYdV rEluHD8eU6sOGovnohrd9vmww exXjvhi1ijfr01iX98D09qSAe p ORDhRBYhTIOdMAThwMafla7ru G9wIi8+NIFbjSC0vSP2bP8yGD MhGwI4REcrV757XcPixXEbOrk j y5emt2uxbRr9TuH9ADGzniKjf JehKYQ5q8IoTm58J55hBXewAF YbGCTiAPIwBRYfiTsdyt3ytR4 w Ii8+XWKazFK0aWX6oT6kPeOnP kE2YXowY612LxZonUGxMaqiK2 9aY8FkmTF+ONCoWbz9FZKwlDg s IH7ouVHmPExnOy1aVZC6BgYwC tFnGJkkV7DfKHQfayhestgupR O2JASvOWMkgM87Le3omLdhJKU w pCHPhK7xntfzo2rtazhjNuGaB LCqRZj9NWo3FEFgeOkoYjYkPA L1DsF0WFU9gHXsnG4pyAljwmz g cD7xN7PpYMTvfyvpWo86bE1lP iTdGmP1PSsuOzf+QLbKYV5BLH RRI84TJppIAQXjBXcpvEH+PHR k SCR8xXrhCCvqFXXotY4hOMUoA 9z9ZvAfGnI4ILiiY7HrIXVnqq vyAh12kY5qZyLnNqQ6TJgpJ2W v bkL8RMVtoAZeJGsbCON4O85hq 5U9RMSdADDsXTG2gYZ5mR9zmA lnbjogbGVmdDsgdmVydGljYWw t DYleE200MDHuqUorUcN7QuL4R qN0Wro1D4EsBsm9EGJizCiuPA 3hsZBlKOwaUo2lyOqgbKeoSO9 w EYJkaiaoMPLpbP6xUEBweOWvq YdzXL6lHFNhquxhi582HcFtPR J9BRNgmDGjG3LkjC7iKrYmXIJ w GBBmE6OsnPCcOOyiV956STtoF hH8CCEwgtIrU3FcRHUckMkbOq P7g9R2Uo94UgHKIZGwupbziSV + PQBhKTA9iBtqSNnoLENggS1zA TKkL3u9ViByHtP7JNemW9BiKH SuemivYx24sE2uNaOdIqU5MGt u Y9ZfeqZ1XJFwoWYxYCtnMUM2Z 18yx7X8THAxPCUsKYB9sHW1lT 1hbGlnbjogbGVmdDsgdmVydGl j IWonXJvzV251BKKppPkuDcZop WFsZTwvdGQ+OCHmHGW1yYjsVF ooZHSbfG2sGYSyB8d0QaJfEhL 1 GUniD2QfVWLodntvBb43aE5jA mNeQuC2GLvwZ2PmtqA7BIKucF AsPVcaBQV2D58cj4X9HRNzNVR w IWX8yID4cX3fcVfzqjepfXArl RctdtDetLqdZGztUZqfQ015FZ KqaUmkErGnmG7dAVWvVLcclDW u dDwvdGQ+PI12gu07X8VzRqurY wr7NBHkEOO5lLX0aK2yLYTsFN nac1F6oHE9S7EpihZslt4fm2f s FNAlJQdzB22tgAHfr7M4BIZti AB5HBTblTruRjQckT36Czn+PG EehSlcy0ZhKdlzx3vfl0lsvTe 9 PhRkXCZouyHrdDshWSJ4j6GuG r30O08pNNbwZFOlIFPpPHNiRJ FwqPsxxt9wxV3wCn8+PGNvbCB 3 qSM0eA5wFuCrQrR5RMtdI599P nZwaQOeBawzw3dxt0edsUx3Fu DxCBSykxWksWuiNVI5x3YbDt2 8 O1FhdJmtj0QzYnm5st32nDDjj 5I2iJD5N1ArXRSkklmrpQKknC boRN5qQIEokfnuWGKnfZ4jEIS p O4a5GmNqDtF0SHfgW1LlfiK7O MOhnUXbNXLnlYXFrQ5gifzzs8 ljtelsVjIkCPFqWBh1SYq3NST s hMnmKrAoIBJ5CcZ9XBD8yTMwv A3iqRztbbccfN7fLyp+UGh5c2 mfoCNmPU0meXU6BP35CM92pWN g p2Y6lKM3K5XbPKMlndtbloscv KR5VJBuSSXdgO81Ue1liHwoYz 2qZGXiSBX2JFHscHFzS5BnlM8 y QcQrHRSrCNSfF7EglOSdROmtG 639JMyqOjE5YSTtwhZkH4CqKK UftSjrImB0a2Z9Cv4NYM81DQ2 0 SW71vUCig7D5mYZ5P5YkLIHjg ttwvwphzEB4QRDzTQMwwC76Vj 4jqHiiOn2yAGTeIUL1CTKixRT z D9QcyE8vUlSpALVdUZSvI4Cjk UMrQGyxL353XZpeCtN0NKBvog FtK2MoUHKflDrfBqD8n2O1Kh4 N Ad11LP42WL58cZTwk4X6kSH1Y 3EcCQTivzugrgfuwOP6EIVbVT JvbP31Bi5buQrkSo8rTANtKHM 0 UHDoyVIfT3PpxJ8oBdEhUHGgW GGpH9PikYMfMDvrV836YNvyNi V1VWOzagRlD4IfNGHntWzlXnQ 0 o4D2Uv5OUBgaoow9T1AsQqsfh HI+AR44CYYcFO12xJQeuWPhv1 ofhGm5PxFkMKJxIVC7iYjaTLr i u2CuCEKm (more content not included)... Normal [facility] Consent for Treatmenton 09-06 Consent for Treatment [id number]#[id number]:1 [facility] Consultation Noteon 10-02-19 Consultation Note Patient: MITESH BURGESS Age: 42 years Sex: Female : 1980 Associated Diagnoses: None Author: Ade Hennessy PA-C Subjective Chief complaint 10/01/2022 10:36 EDT low back and right hip pain . Patient is a 41-year-old female with a past medical history significant lumbar neuritis, sacroiliitis, myalgia, left hip and knee pain. She underwent previous left-sided L4-5 transforaminal epidural steroid injection. This gave her 50-60% relief. She still has significant relief. Prior to the injection she was only able to stand for 5 to 10 minutes and now she can stand for 30+. She was only able to walk less than a block and now she can walk further than that. Unfortunate, she still notices some lower back pain and intermittent buttock pain. She really feels that if she can continue to get some improvement she is going to do better. Minutes In regards to her medications, she is taking methocarbamol 500 mg up to 3 times a day and Lyrica 225 mg twice daily. She tolerates the medications. At her last appointment the Lyrica was increased to this dose and she feels that this is working much better. She wondered if she could go up just a little bit more to see if she can get even better control of her pain. She really feels that the 2 medications in conjunction with the injection have given her significant improvement. Health Status Allergies: Allergic Reactions (Selected) Severity Not Documented Adhesive Bandage- Rash. Clindamycin- Itching. Codeine- Nausea. Latex- Rash., Allergies (4) Active Reaction Adhesive Bandage rash clindamycin Itching codeine Nausea Latex rash Current medications: (Selected) Prescriptions Prescribed albuterol HFA 90 mcg/inh MDI: 2 puff(s), Inhalation, QID Shortness of breath or wheezing, 1 EA, Refill(s) 0, qid and prn sob/wheezing, [id number], 160, cm, 04/27/20 22:06:00 EDT, Height/Length Dosing, 98, kg, 04/27/20 22:06:00 EDT, Weight Dosing off work: off work, See Instructions, 1 EA, 0, Patient had a procedure with our services. She should be excused from work for 10/30/21 and 10/31/21, Supply pregabalin 200 mg Cap: 200 mg = 1 cap(s), Oral, BID, X 30 day(s), # 60 cap(s), Refills(s) 2, [id number], 158, cm, 08/14/22 9:29:00 EST, Height/Length Dosing, 91.6, kg, 05/18/22 11:25:00 EST, Weight Dosing pregabalin 225 mg oral capsule: 225 mg = 1 cap(s), Oral, BID, # 60 cap(s), Refills(s) 2, [id number], 158, cm, 08/31/22 9:15:00 EST, Height/Length Dosing, 91.6, kg, 05/18/22 11:25:00 EST, Weight Dosing pregabalin 300 mg Cap: 300 mg = 1 cap(s), Oral, BID, # 60 cap(s), Refills(s) 1, [id number], 158, cm, 10/01/22 10:45:00 EDT, Height/Length Dosing, 90, kg, 10/01/22 10:45:00 EDT, Weight Dosing Documented Medications Documented LIOTHYRONINE SOD 5 MCG TAB: LIOTHYRONINE SOD 5 MCG TAB Lamictal 25 mg Tab: 50 mg = 2 tab(s), Oral, Bedtime, Refills(s) 0, Seizure Lamictal: 200 mg, Oral, Bedtime, Refills(s) 0, Seizure Multi Vitamins oral tablet: 1 tab(s), Oral, Daily, Refill(s) 0, Prophylaxis Pristiq 100 mg Tab-ER: 200 mg = 2 tab(s), Oral, Daily, # 30 tab(s), Refills(s) 0, Depression Trokendi XR 100 mg oral capsule, extended release: TAKE 1 CAPSULE BY MOUTH EVERY DAY Vitamin C 500 mg Tab: 500 mg = 1 tab(s), Oral, Daily, Refills(s) 0, Prophylaxis Vitamin D3 2000 intl units: See Instructions, daily, Refills(s) 0 Vraylar 4.5 mg oral capsule: TAKE 1 CAPSULE BY ORAL ROUTE 1 TIME PER DAY CHANGE IN DOSAGE Zyrtec: 10 mg, Oral, Daily, PRN Allergy symptoms, Refills(s) 0 busPIRone 15 mg Tab: 15 mg = 1 tab(s), Oral, TID, Refills(s) 0, Anxiety calcium (as carbonate) 600 mg oral tablet: 600 mg = 1 tab(s), Oral, Daily, Refills(s) 0 hydrOXYzine pamoate 25 mg Cap: 25 mg = 1 cap(s), Oral, QID, PRN for anxiety, # 40 cap(s), Refills(s) 0 levothyroxine 50 mcg (0.05 mg) Tab: TAKE 1 TABLET BY MOUTH EVERY DAY potassium chloride: 40 mEq, Oral, Daily, Refills(s) 0 Problem list: All Problems Synovial cyst of lumbar spine / SNOMED CT 7269189505 / Confirmed Neuropathy / SNOMED CT 2110527054 / Confirmed Ascending aorta dilation / SNOMED CT 292583230 / Confirmed Anxiety / SNOMED CT 54307453 / Confirmed Bipolar disorder / SNOMED CT 02092157 / Confirmed Labral tear of shoulder / SNOMED CT 083001131 / Confirmed Resolved: At risk for falls / SNOMED CT 384853933 Problem added when Risk for Falls Careplan was initiated. Resolved due to patient discharge. Resolved: Migraine / SNOMED CT 40953985 Resolved: Seasonal allergies / SNOMED CT [id number] Objective Vital Signs 10/01/2022 10:36 EDT Peripheral Pulse Rate 71 bpm Respiratory Rate 18 br/min Systolic Blood Pressure 133 mmHg Diastolic Blood Pressure 83 mmHg Mean Arterial Pressure, Cuff 100 mmHg General: Alert and oriented, No acute distress. Eye: Normal conjunctiva. HENT: Normocephalic, Normal hearing. Cardiovascular: No edema. Musculoskelet (more content not included)... Normal [facility] Comment on above: Result Comment: Elec tronically Signed By: Ade Hennessy PA-C\.br\Date and Time Signed: 10/01/22 11:01 EDT\.br\Electronically Co-Signed By: Hai JAY, Boy Wilson\.br\Date and Time Co-Signed: 10/16/22 15:58 EDT Office/Clinic Note-Physician on 10-01-2022 Office/Clinic Note-Physician [id number]#[id number]:127 Normal [facility] Patient Correspondenceon Patient Correspondence [id number]#[id number]:127 Normal [facility] Patient History Officeon Patient History Office [id number]#1.00CD:127 Normal [facility] Coding Summary.on 09-26-2022 Coding Summary. CD:[id number] Ww+PG hlYWQ+UO4KBUHhK92vaXZqmS5 bP9GAAAfGXpvlHZQTXOkXJqVf niFaLG9woNAoXDPd IC8+JI7jOCOtBlyhoBKcp2N4i SA2X35qkh6xMWexsDN2LAUjPe Xdcftim2lknPc1GHlwMsvmIuE t KTUkyL29ZQI4oG13Na39fULbp GQyf5ygnTr1HcPlIVPnWXH3bH vwBEjtk1TiJGMfE09zzCGyh6F 6 GBHkoXbbsHWkVtBdeEC9tW8oQ Vkjjlqgx8cacbubWfk5ky11lM Bnb0G9tTU8G0OcffH2QSScbGL g VhjwlQOVvZ9xwqmnb4hzxwqbD nRoYYMhDBn5CPh3OXIhsLulVd PsRG81PDP8RBOrwzLlZ6PrGTJ s oTypDtO5r5V9Om6QQ2DMTjozD 1VNTUFSWTwvdGQ+VB60vz02R5 WbPnbfAog2VRZkWNK1aZJ7qL1 n NNLeKGzoj9F4xAA4A4YkecAya l1ec9tsILKzQUewN44ysLVfu6 J3XELynWV9NEVfeVnrRjPdrO5 3 Oyc+ZVVkmZfzz9TzWevkk1tmm 1wqzBm4OmdtFUYxhyGkkCddOJ R2n3TkQu8dWBGigXL4sRR3zM2 i FbFqUrU1GUtfB106GtDcyMItY ehcD17yT9FdfGE+VBJePnf4GH RxeSfyFW2qX2YwIRVkvpwjdVM m fDsgXU6xFWWmuficEVTdlW4yL VYnI4x9FiDoNzW7RZnmA9YiYE SebbvrZd08sH3uLvDsKlW1NXn u E0ZkavG1YYCfuNXvYMliIUW0I 67zh3G9LOCbBVKvETK3fJF3fF 1hbGlnbjogbGVmdDsgdmVydGl j XJlzGQupQ409MITdlImpKgUcJ GluZyBEYXRlOiAgMDMvMjIvMj AyMzwvdGQ+LEMpDBX0lQbtQGE n oDUuSUtlMk6wkZjkyMmfBY7cT OOerlghEXRrvW5xHGWruIGjkD prDI5tWBVpnpsug172MxKxOEC 0 EABygOIaC7PrnY7bVfIxPUBoK JKjY7PacTGpGYrpO772XBvvDp J9LVFjypAqV3LtQVClcIpdFpS 0 i8C5Hm8Aq2XjkdwhB5DveVMhM aSaVkxzXYi8Y1GfNxsfeZB+PC 09WRXrVC13BQn3QQB8dNmlERi i XICkX4JugA4lVnHdUZCaMDXmV yc+PHRhYmxlIHdpZHRoPScxMD HyLeBitHpnVO4qRs7tTNIlDNW v dGmnxWNeYnIza2zvSIJzMZbhZ R7yhXmzS7ExsBT6TQMzo4d0Uw 06C65tO8UvcHJ+RJTdnDK8qHF 0 gM7dEqKoWeY8IGdvY810NaYop JXjIyyrw6bzp3qasEa7ZhF7MK CcuzGrsGxiTPC3k6GgQp95P26 s IHdpZHRoPSIxNSUiIHZhbGlnb n9kgE1uUt6+PUEvoEB7zPJ2yL 0kTyYlTpB7TUiiP708IgCfcRW v Okkku2izb3tghCk4ZkAfOREne rXdeGwpYAV0c1OmOi38H5TzaN gnz1LnDjb6ep77pVNhi4H0cNG 9 B9HtUSSqkwmdlNKpkRtpRA1mO HNogkecPMOcoE4dQHCoP5k9Zu EqByV1HDihP3LeluD1AJRnbTA g QFGrzUQGxD2oryull9zbsoqxB tGjAROeRVj0NHl3HCFjyRmzIg LiWWX3NkP6NXZ5kNBrxN5foZn n bxejdQ3kZjh+JTL7xFLqfYJPD K6lAifdjJS+UVOfXZH8qYsoZL nyQTCttN2tOOEsA0s4QxEgScG 1 IZphS6UvljF9QYIygWRvYQVcu JUMhS1hfvocm4havnwzNbArJN OxFKt1AWv2JSNrgEjfQuLiMCI 0 QsS2WOR0cYVcgB1jvWeookhis G9wOyc+UvfgfNbaNGH4JJk6Q4 SuLhs6TQUckLitDY2cvNTsZBf u Dm3gyHmxrHbkDP4kPSEosbgjr 160MrMnb4duAQPqlPWoVPziXM B6S03bb7V6FFLoFTTtRQJ0pTK 4 gY2ryRvwjfmjcFCzaSpxlpDuf CxiHOmsODfbE031JVEupEqjRr TzXPm5F0ZsBew0WLNqxCnjDF9 n oMAiHOfaMq5phIqqwUocSC6tW JPklrflh502QzEjt3dmMUPltU JnZZdiMQS9O49jd8T1THOpBWX w UVK0vKG3pO0yiUhktoyowTNzd NcyofNctUvbNJtcVSfdZ769GA KsvNipWqSdsMt3K9KxUnp7LSC z pYryIV0alMHrAJzuJu7xoCemp DqwJH9vLPMqfostg002UnNch0 nrATGxwQLlYIlrRYZ3A51gu6A 6 DUXsLUFsSCF4sFR0lN3czJrhk jogbGVmdDsgdmVydGljYWwtYW vaD990PVAogVogNrUjrOzpvcP g NAgnRLn9L0TlGnhknEP+PC90Y WAlLN05nNOfrKCcf5qptJd5Jd RgUMMxJFN2uPagINkgb6OyTXX t L46snWNkd6I7YITuiIjmtZLqG pMbdAE4vC6dRDmsumqsj2hdfd qxEwbcb8wiyp39cO63E44cDTj p CMScHNQdLHFiNLJimWbqtm3hf G9wIi8+AGSftJK7vXQ9tJ3sVZ MiKpM4QQndH653RqCnpNAcQip j o4jnq4crtUq6AsU9JLInmpPuv LeqHSO5o6FzTq67U89jSOatPC FnNCHxASEfRAUnsNxkic2ogN5 w Ii8+TIUggCA6qGY6xE8oNrGsH vS0PIyhO022DpMmiJIsGtwwK0 4vY4TqqTU+QJEeKis1QKTimZd s DO5wsQQhYSlhVa1pXFD6OnNsZ iUyEKtnY5LlOFUqcrbtjkvfmK E0GHVaDCLsnV54Lc6rqGymXHB w iEHNaX1xzuyax1jnetdnQbVhM IQtCFn3CIv3JAXczMebLmZyIQ V4SkX4AJA4tKEryG5loFbigft g kL7jW3PqVDYxfpatQo61dO1rB yLuLtD6DAtkQjd+FUtCBQ0KVC CDJ49JEdrRXNIxBLkoqHN+PHR k VAL1xWvrGAkhKFQxyR3wIDRoU 8r9EbTqAiR8HQbsC3NkAZBzqk npWx09cP3qPtKfLbK5GWroI7T v heZ8MKUcqRRtOMgsJEA2O70vz 0F5KDTbYUJlZHW3rFQ7hF6rsX lnbjogbGVmdDsgdmVydGljYWw t QBbbJ441VIXmgBueOkN6ChW6U vX7Yts5G6HcMpg8SEQknBpoLJ 4wqXQyQGwvBh8cjDxtxPlcGG2 w NVInzwmdKEHniE3gVPLmhFDub VvyQI7rFPYllsqyq424XkVfLR I4ZKQrmZKsB7MolK2jTvTrZHV w JHTxQ0BmrJJjYXzzE501HGemD uE4EJWspbKhA9QhNEBzxXzgPc M3t8E1Lg34FxZGTTSvlmwgvQC + HNVrSKJ9hFmnJRdsWSQrzU6jE KXrA5d2MmAwZyG2TJezH8GtIY WpwvvhPs74pI1pKeXdNiG0PLt u T2EyrnY3EQJgoSQaINpjIIA3R 19ci4M8JUAsNOXhENU9iNS4sH 1hbGlnbjogbGVmdDsgdmVydGl j WZwcQKhyC536JYCrxGawPrIwr WFsZTwvdGQ+YAKeHWT9cYkxVV nxXXWdoZ7gNENeL2h9LvOtLsJ 1 OGfbE7UxRMLtrfdhAt34uF3zA sFmSbA7SJyuS9IcgpF5KLDdgL ZzGZqyRRG2J46ir7X0DAZyMVM w SIX6pUV3zC7mdSxhigrttUJgc PadwrHifXdcWXknSGfgU342FZ PtvIbhVq23zAKufGmifhI1T7K k PjwvdHI+HP22NJMfTE69iJBjs SRyi3otdPw0MmNuQAKiQPV6wR fbMClyl7XcDSLcO72tyDHaa7P 6 YHPcdHlnbNMdTbMggCU6bB4wE Vkvvibui2uqdcgcHylvq2omvu 34nO87N01hQIdvQPUgELUgUOP i ORKmnSipar2thX6vQi1+PGNvb VW2qAX1bC0tLzNrOgW9EGicE8 35CgZxtCQiFsssb3xgb3poxEe 9 DjQoBEZqskRvsQzgQWD0p2SaL y72K42kUHmqBVRmPTLlSWLeXX TgjWkzwv7krI1fRc7+QA6ul0m n fx07vX25yBQ+ACAjLTD3mXuaF SupTRJbnE5mHRvgZgP6GXRfQg GbvO30jKQpBPfhCp8euBcglJu g UA4uUPRkohygz588TrShv8ehN OJxdYGnFAmlHXK6F28jd8F3VJ CvDRUeLPB4jPF0kN5ngAmwpcv g bGVmdDsgdmVydGljYWwtYWxpZ 292RHHqtGnsAzMeqKItP6gjas UPUE2oCfvyaJN+NKTnCTM5dNf l AKgwDLGbiJ6bMOIqV9u9EpPmW sT0OWewA6NdorV4ABYsbCEdEK PupCAIiB9mcavmm8toaoovUrK w FBBePBf0DMh0CYMegInxPiZcV ZH9BiK0HAB6tOUauF2yeTfebg itaH8wAsk+RklOOjwvdGQ+PHR k EEH8bIrySIqbPDHzhD4fXIQjR 1e9CgIsIuL4MTqfT1JiydD2DO WveVIyAVGxdBUXsT5rlwxzm2c v jxeiLyKcRPDkNIe9WJc8YSBbj IfbCsPmZPX9SnE8BJG2fXAluD 7qvEgqaipstK0sVhn+TVJOOjw v dGQ+TMIvIYT4sZtaZMlcCLVso X0dDOCyY0g3OhYzIwY2RAdzR6 CvtaP0MEIukSZuIWPlsTPPoA1 l qipsb6lwtjcdYrOyDASjPCa9U Sv0GICpjFxjKmJzOIH8QfM0AP W7tBGqqH0inHfuwpfrkP8nKoi + ONC1GAY0DM45HD10L5PkIviqo GFibGU+PHRhYmxlIHdpZHRoPS pcGSZtAqZnjOpbVH7aWf4hDGY y LWNvbGxh (more content not included)... Normal [facility] Amylaseon 09-20-2022 Amylase [Catalytic activity/Vol] 36 U/L Normal 25-157 [facility] Comment on above: Performed By: #### 2 [id number], [id number], [id number], 4319080, 86120686, 2544148, 0642194, 2101114 ####[facility] [address] [place] [address] Auto Diffon 09-20-2022 Basophils/100 WBC (Bld) 0.7 % Normal 0.0-2.0 [facility] Comment on above: Order Comment: Order Added by Discern Expert. Performed By: #### 2 233909, 9670074, 55204073, 7459642, 71963580, 6702506, 7980269, 7492445 ####[facility] [address] [place] [address] Basophils/Leukocytes Auto (Bld) [Pure # fraction] 0.1 E9/L Normal 0.0-0.2 [facility] Comment on above: Order Comment: Order Added by Discern Expert. Performed By: #### 2 282562, 7759156, 43731898, 9546070, 96959371, 9785824, 7265464, 0276908 ####[address] [place] [address] Eosinophils/100 WBC (Bld) 0.8 % Normal 0.0-8.0 [facility] Comment on above: Order Comment: Order Added by Discern Expert. Performed By: #### 2 471853, 3569265, 14900943, 4089732, 15731386, 2797429, 2771227, 3464871 ####[address] [place] [address] Eosinophils/Leukocyte s Auto (Bld) [Pure # fraction] 0.1 E9/L Normal 0.0-0.5 [facility] Comment on above: Order Comment: Order Added by Sreedhar Expert. Performed By: #### 2 110057, 1611348, 79301812, 3568936, 54721674, 4459145, 6448474, 0979812 ####[address] [place] [address] Lymphocytes/100 WBC (Bld) 19.3 % Normal 14.0-50.0 [facility] Comment on above: Order Comment: Order Added by Sreedhar Expert. Performed By: #### 2 531772, 1281253, 90019359, 8938991, 46667433, 4684997, 1682364, 3383015 ####[address] [place] [address] Lymphocytes/Leukocyte s Auto (Bld) [Pure # fraction] 1.8 E9/L Normal 1.0-4.0 [facility] Comment on above: Order Comment: Order Added by Sreedhar Expert. Performed By: #### 2 331315, 8034562, 13514086, 5979063, 22931622, 2887599, 1903160, 0856072 ####[address] [place] [address] Monocytes/100 WBC (Bld) 7.1 % Normal 4.0-14.0 [facility] Comment on above: Order Comment: Order Added by Discern Expert. Performed By: #### 2 031217, 8373663, 16175225, 0718628, 16545532, 1554825, 3135056, 6028965 ####[address] [place] [address] Monocytes/Leukocytes Auto (Bld) [Pure # fraction] 0.7 E9/L Normal 0.2-1.0 [facility] Comment on above: Order Comment: Order Added by Discern Expert. Performed By: #### 2 247007, 9704858, 46891389, 4538959, 89991107, 1980822, 6984596, 1157216 ####[address] [address] Neutrophils/100 WBC (Bld) 72.1 % Normal 36.0-75.0 [facility] Comment on above: Order Comment: Order Added by Discern Expert. Performed By: #### 2 295573, 9837652, 05028397, 7094595, 77464047, 0025493, 9826915, 4688397 ####[address] [address] Neutrophils/Leukocyte s Auto (Bld) [Pure # fraction] 6.7 E9/L Normal 2.0-7.5 [facility] Comment on above: Order Comment: Order Added by Discern Expert. Performed By: #### 2 306938, 4865407, 75467770, 4652132, 02450796, 5587665, 7315445, 3444375 ####[address] [place] [address] CBC w/ Auto Diffon 3 Erythrocyte distribution width (RBC) [Ratio] 12.9 % Normal 10.9-14.2 [facility] Comment on above: Performed By: #### 2 252885, 3979809, 96102857, 3474245, 48093061, 7735095, 9064632, 6662878 ####[facility] [address] [place] [address] Hematocrit (Bld) [Volume fraction] 44.9 % Normal 34.0-46.0 [facility] Comment on above: Performed By: #### 2 489962, 0511409, 08864718, 6540691, 01163407, 5333293, 4367996, 2939122 ####[address] [place] [address] Hemoglobin (Bld) [Mass/Vol] 15.7 g/dL Normal 12.0-16.0 [facility] Comment on above: Performed By: #### 2 588205, 0410518, 94204061, 1424199, 46682932, 3796905, 1718564, 4720344 ####[address] [address] MCH (RBC) [Entitic mass] 32.2 pg Normal 27.0-34.0 [facility] Comment on above: Performed By: #### 2 424413, 3164810, 73031636, 1220245, 73654445, 0555532, 0894012, 7626496 ####[address] [address] MCHC (RBC) [Mass/Vol] 34.9 g/dL Normal 31.4-36.0 [facility] Comment on above: Performed By: #### 2 843932, 2619249, 18210735, 0324355, 42809040, 4496272, 9805990, 2847892 ####[address] [place] [address] MCV (RBC) [Entitic vol] 92.2 fL Normal 80.0-100.0 [facility] Comment on above: Performed By: #### 2 625778, 4637384, 29878529, 7232991, 26701084, 1873782, 9695354, 9121962 ####[address] [address] Platelet mean volume (Bld) [Entitic vol] 8.3 fL Normal 6.4-10.8 [facility] Comment on above: Performed By: #### 2 710232, 9531796, 10943783, 8632259, 22949500, 0477901, 8899381, 5618146 ####[facility] [address] [place] [address] Platelets (Bld) [#/Vol] 334.0 E9/L Normal 150.0-500.0 [facility] Comment on above: Performed By: #### 2 304243, 9783122, 78035952, 3348604, 48083189, 7998288, 5000869, 6478407 ####[facility] [address] [place] [address] RBC (Bld) [#/Vol] 4.9 E12/L Normal 4.3-5.9 [facility] Comment on above: Performed By: #### 2 758785, 3015260, 52589575, 8708222, 31763162, 6036968, 1798600, 2146687 ####[facility] [address] [place] [address] WBC corrected for nucl RBC Auto (Bld) [#/Vol] 9.3 E9/L Normal 4.0-11.0 [facility] Comment on above: Performed By: #### 2 491536, 2967901, 16704526, 3488103, 59073170, 2606749, 5755003, 7501904 ####[facility] [address] [place] [address] CHEMISTRYOrdered By: SYSTEM SYSTEM on 09-20-2022 Albumin [Mass/Vol] 4.5 g/dL Normal 3.3 - 5.0 gm/dL [facility] Albumin/Globulin [Mass ratio] 1.3 {ratio} Normal 1.1 - 2.2 [facility] ALP [Catalytic activity/Vol] 90 [iU]/d Normal 21 - 98 Int._Unit/L [facility] ALT No additional P-5'-P [Catalytic activity/Vol] 23 [iU]/d Normal 6 - 46 Int._Unit/L [facility] Amylase [Catalytic activity/Vol] 36 U/L Normal 25 - 157 unit/L [facility] Anion gap [Moles/Vol] 11 mmol/L Normal 6 - 16 mEq/L [facility] AST [Catalytic activity/Vol] 24 [iU]/d Normal 5 - 43 Int._Unit/L [facility] Bilirubin [Mass/Vol] 0.7 mg/dL Normal 0.0 - 1 .1 mg/dL [facility] Calcium [Mass/Vol] 9.8 mg/dL Normal 8.9 - 11. 1 mg/dL [facility] Chloride [Moles/Vol] 107 mmol/L Normal 101 - 1 11 mmol/L [facility] CO2 [Moles/Vol] 21 mmol/L Normal 21 - 31 mmol/L [facility] Creatinine [Mass/Vol] 1.0 mg/dL Normal 0.5 - 1.3 mg/dL [facility] Free T4 index Calc [Mass/Vol] 7.55 ng/dL Normal 5.90 - 13.10 ng/dL [facility] GFR/1.73 sq M.predicted among blacks MDRD (S/P/Bld) [Vol rate/Area] mL/min/1.73 m2 Normal >=59mL/min/ 1.73 m2 FT [facility] S GFR/1.73 sq M.predicted among non-blacks MDRD (S/P/Bld) [Vol rate/Area] mL/min/1.73 m2 Normal >=59mL/min/ 1.73 m2 FT [facility] S Globulin (S) [Mass/Vol] 3.4 g/dL Normal 1.4 - 4.0 gm/dL [facility] Glucose [Mass/Vol] 124 mg/dL Normal 55 - 199 mg/dL [facility] Iron [Mass/Vol] 67 ug/dL Normal 35 - 153 mcg/dL [facility] Lipase [Catalytic activity/Vol] 32 U/L Normal 13 - 58 unit/L [facility] Potassium [Moles/Vol] 2.9 mmol/L Low 3.5 - 5.3 mmol/L [facility] Protein [Mass/Vol] 7.9 g/dL High 6.0 - 7.8 gm/dL [facility] Sodium [Moles/Vol] 136 mmol/L Normal 135 - 145 mmol/L [facility] T4 [Mass/Vol] 6.8 ug/dL Normal 4.6 - 9.1 mcg/dL [facility] T4 uptake [Mass/Vol] 44.4 % Normal 32.0 - 48.4 % [facility] TSH Qn 0.49 m[IU]/L Normal 0.34 - 5.60 mcIU/mL [facility] Urea nitrogen [Mass/Vol] 12 mg/dL Normal 5 - 21 mg/dL [facility] Urea nitrogen/Creatinine [Mass ratio] 12 mg/mg Normal 10 - 20 [facility] CMPon 09-20-2022 Albumin [Mass/Vol] 4.5 g/dL Normal 3.3-5.0 [facility] Comment on above: Performed By: #### 2 247793, 7074196, 30057565, 1935964, 28437565, 6306603, 5856466, 2144244 ####[facility] [address] [place] [address] Albumin/Globulin (S) [Mass conc ratio] 1.3 Normal 1.1-2.2 [facility] Comment on above: Performed By: #### 2 034335, 0437890, 22622611, 4878502, 15970822, 2028807, 5291622, 2537287 ####[facility] [address] [place] [address] ALP [Catalytic activity/Vol] 90 Int._Unit/L Normal 21-98 [facility] Comment on above: Performed By: #### 2 222133, 2485332, 77548466, 9826779, 44882801, 5511576, 5150079, 6953698 ####[facility] [address] [place] [address] ALT No additional P-5'-P [Catalytic activity/Vol] 23 Int._Unit/L Normal 6-46 [facility] Comment on above: Performed By: #### 2 911606, 1245872, 42897334, 0091044, 54272466, 8533201, 5405522, 6383531 ####[facility] [address] [place] [address] Anion gap [Moles/Vol] 11 mmol/L Normal 6-16 [facility] Comment on above: Performed By: #### 2 533960, 2929455, 59607903, 6597041, 25467646, 0499976, 2130236, 4134673 ####[facility] [address] [place] [address] AST [Catalytic activity/Vol] 24 Int._Unit/L Normal 5-43 [facility] Comment on above: Performed By: #### 2 141237, 8712287, 23907825, 7153338, 65189618, 6493649, 3900150, 4165576 ####[address] [place] [address] Bilirubin [Mass/Vol] 0.7 mg/dL Normal 0.0-1.1 [facility] Comment on above: Performed By: #### 2 439076, 7246221, 33672152, 6486359, 24813704, 1361293, 2530934, 0073819 ####[address] [place] [address] Calcium [Mass/Vol] 9.8 mg/dL Normal 8.9-11.1 [facility] Comment on above: Performed By: #### 2 766893, 3556245, 53978376, 7893399, 12008075, 0544762, 1342306, 9856720 ####[facility] [address] [place] [address] Chloride [Moles/Vol] 107 mmol/L Normal 101-111 [facility] Comment on above: Performed By: #### 2 916737, 4835229, 33527173, 7659392, 50687408, 6500044, 8020449, 0207157 ####[address] [place] [address] CO2 [Moles/Vol] 21 mmol/L Normal 21-31 [facility] Comment on above: Performed By: #### 2 733815, 4912819, 89884370, 5889189, 17051191, 8382037, 2494668, 7242874 ####[facility] [address] [place] [address] Creatinine [Mass/Vol] 1.0 mg/dL Normal 0.5-1.3 [facility] Comment on above: Performed By: #### 2 942913, 7222768, 54136037, 4198331, 12797545, 4617255, 4323959, 5417809 ####[facility] [address] [place] [address] Globulin (S) [Mass/Vol] 3.4 g/dL Normal 1.4-4.0 [facility] Comment on above: Performed By: #### 2 502657, 4829443, 19214818, 2529923, 87923316, 9684244, 0381644, 3652660 ####[facility] [address] [place] [address] Glucose [Mass/Vol] 124 mg/dL Normal 55-199 [facility] Comment on above: Result Comment: If t his glucose result represents a fasting glucose, interpretation should refer to the following reference range: 55-99 mg/dL Performed By: #### 2 439124, 5574767, 56298830, 4895744, 07528599, 5384726, 6931469, 0420372 ####[facility] [address] [place] [address] Potassium [Moles/Vol] 2.9 mmol/L Low 3.5-5.3 [facility] Comment on above: Performed By: #### 2 472336, 2406805, 89741301, 5256718, 85495456, 8780837, 9973693, 1634487 ####[facility] [address] [place] [address] Protein [Mass/Vol] 7.9 g/dL High 6.0-7.8 [facility] Comment on above: Performed By: #### 2 988156, 6839684, 91066530, 7783032, 87317145, 4428851, 9768735, 8680956 ####[facility] [address] [place] [address] Sodium [Moles/Vol] 136 mmol/L Normal 135-145 [facility] Comment on above: Performed By: #### 2 894824, 8215483, 76808605, 9999273, 84655570, 4960334, 6573772, 1266067 ####[facility] [address] [place] [address] Urea nitrogen [Mass/Vol] 12 mg/dL Normal 5-21 [facility] Comment on above: Performed By: #### 2 552033, 6089437, 06279319, 6958314, 11713999, 1371384, 1852783, 6185220 ####[facility] [address] [place] [address] Urea nitrogen/Creatinine [Mass ratio] 12 No Units Normal 10-20 [facility] Comment on above: Performed By: #### 2 595938, 0886015, 68774183, 2212311, 45901082, 1342201, 6431341, 0498500 ####[facility] [address] [place] [address] Consent for Treatmenton 09-05 Consent for Treatment [id number]:12 7 Normal [facility] HEMATOLOGYOrdered By: SYSTEM SYSTEM on 09-20-2022 Basophils/100 WBC (Bld) 0.7 % Normal 0.0 - 2.0 % [facility] Basophils/Leukocytes Auto (Bld) [Pure # fraction] 0.1 E9/L Normal 0.0 - 0.2 E9/L [facility] Eosinophils/100 WBC (Bld) 0.8 % Normal 0.0 - 8.0 % [facility] Eosinophils/Leukocyte s Auto (Bld) [Pure # fraction] 0.1 E9/L Normal 0.0 - 0.5 E9/L [facility] Lymphocytes/100 WBC (Bld) 19.3 % Normal 14.0 - 50.0 % [facility] Lymphocytes/Leukocyte s Auto (Bld) [Pure # fraction] 1.8 E9/L Normal 1.0 - 4.0 E9/L [facility] Monocytes/100 WBC (Bld) 7.1 % Normal 4.0 - 14.0 % [facility] Monocytes/Leukocytes Auto (Bld) [Pure # fraction] 0.7 E9/L Normal 0.2 - 1.0 E9/L [facility] Neutrophils/100 WBC (Bld) 72.1 % Normal 36.0 - 75.0 % [facility] Neutrophils/Leukocyte s Auto (Bld) [Pure # fraction] 6.7 E9/L Normal 2.0 - 7.5 E9/L [facility] HEMATOLOGYOrdered By: Esteban Liu on 09-20-2022 Erythrocyte distribution width (RBC) [Ratio] 12.9 % Normal 10.9 - 14.2 % [facility] Hematocrit (Bld) [Volume fraction] 44.9 % Normal 34.0 - 46.0 % [facility] Hemoglobin (Bld) [Mass/Vol] 15.7 g/dL Normal 12.0 - 16.0 gm/dL [facility] MCH (RBC) [Entitic mass] 32.2 pg Normal 27.0 - 34.0 pg [facility] MCHC (RBC) [Mass/Vol] 34.9 g/dL Normal 31.4 - 36.0 gm/dL [facility] MCV (RBC) [Entitic vol] 92.2 fL Normal 80.0 - 100.0 fL [facility] Platelet mean volume (Bld) [Entitic vol] 8.3 fL Normal 6.4 - 10.8 fL [facility] Platelets (Bld) [#/Vol] 334.0 E9/L Normal 150.0 - 500.0 E9/L [facility] RBC (Bld) [#/Vol] 4.9 E12/L Normal 4.3 - 5.9 E12/L [facility] WBC corrected for nucl RBC Auto (Bld) [#/Vol] 9.3 E9/L Normal 4.0 - 11.0 E9/L [facility] Ironon 09-20-2022 Iron [Mass/Vol] 67 microgram/dL Normal 35-153 [facility] Comment on above: Performed By: #### 2 255218, 4255502, 45171399, 0094041, 62996686, 6061709, 1115206, 8610207 ####[facility] [address] [place] [address] Lipase Levelon 09-20-2022 Lipase [Catalytic activity/Vol] 32 U/L Normal 13-58 [facility] Comment on above: Performed By: #### 2 022019, 4714044, 50712962, 8785338, 67443519, 2507856, 9803128, 3221762 ####[facility] [address] [place] [address] Physician Orderon 09-20-2022 Physician Order [id number]:1 27 Normal [facility] Thyroid IIon 09-20-2022 Free T4 index Calc [Mass/Vol] 7.55 ng/dL Normal 5.90-13.10 [facility] Comment on above: Performed By: #### 2 837693, 2155223, 29697812, 4188148, 17861798, 2464169, 6801334, 3420126 ####[facility] [address] [place] [address] T4 [Mass/Vol] 6.8 microgram/dL Normal 4.6-9.[address] [facility] Comment on above: Performed By: #### 2 344357, 3702287, 11406996, 1117620, 58214837, 7269403, 0273263, 7454303 ####[facility] [address] [place] [address] T4 uptake [Mass/Vol] 44.4 % Normal 32.0-48.4 [facility] Comment on above: Performed By: #### 2 696601, 2565811, 07680674, 1408005, 02701749, 3727409, 1055838, 7388916 ####[facility] [address] [place] [address] TSH Qn 0.49 m[IU]/L Normal 0.34-5.60 [facility] Comment on above: Performed By: #### 2 126147, 7142625, 72203864, 2015787, 52694902, 1449060, 5489318, 8262960 ####[facility] [address] [place] [address] eGFRon 09-20-2022 GFR/1.73 sq M.predicted among blacks MDRD (S/P/Bld) [Vol rate/Area] mL/min/{1.73_m2} Normal >=59 [facility] Comment on above: Order Comment: Order added by Discern Expert. Result Comment: eGFR is race adjusted. AA=. Performed By: #### 2 719306, 8636368, 02185232, 5451732, 99425994, 1488203, 0737745, 2861300 ####[facility] [address] [place] [address] GFR/1.73 sq M.predicted among non-blacks MDRD (S/P/Bld) [Vol rate/Area] mL/min/{1.73_m2} Normal >=59 [facility] Comment on above: Order Comment: Order added by Discern Expert. Result Comment: Barkeeper brent kidney disease could be indicated at eGFR's of less than 60 mL/min/1.73m2. Kidney failure is indicated at less than 15 mL/min/1.73m2. Performed By: #### 2 934241, 8035434, 71700541, 1062589, 63332397, 7662120, 8412658, 3953985 ####[facility] [address] [place] [address] Coding Summary.on 09-05-2022 Coding Summary. CD:[id number] Gh0bW w+PGhlYWQ+RX1NYFDjO89lzZQ anG4ZO8gSID1ZELXTWZHIQE5M XO6pmFC1NHssY3UnbgLr ClpzmMMpUK73OPk0VOE7wMohM PuipV6ylPGdL8m5UxWdSG27mF 21RLxvFKSiIbO3NxXtqaeeuKN y L9eyKrCtrQGmMsh+PHRhYmxlI HdpZHRoPScxMDAlJyBzdHlsZT 4dFc1nMFVdUXDrhNipeNQhNkB j x1itVPCtPWmgTA5slXcdO7Xlt ZG0BKVpb7q3Rd20qMX+PHRkIH R9wAhqNQyjo263RgAdu6tmABF 3 sFTzJFhyNIW4V11cg4H0ODJiO CLtOJZ3vPJ5bL2inNjptxwcQ3 OzuTIsPwG6WRB1qEGymA4qwWu n orenhV1sQzw+A99VZP7NJTSOX W1TWvb5D7UmUlbghJS+PC90YW LaXI06tKGaeZAqn9pspCo7JeD w DLApUQS0zPkoBCjsd6SiMYBpM 71gyTSef2X7XSWcyJnjyGDxGx PkoCX1tA8xCHvgvzdhm0wfgbf n Bnamq0pggx41fH13V83rTDkcM DKuOKZ1ZNXaMPOklXsqvw3mhC 9wIi8+LQfsy0tes7dnkGj6WdC w SNWdknIunEtyENG3j1XcCx40M 4VfvPopu1AjRme6ac97uJOvh6 P1uVE9RAwxGCCdwC9zRUpbChB 6 ZZGrHgDcrW48qXDkXMeiVh7wc KzllSpxOO9dCXUjjxwlLSCypP 1tGDQyeOGwyUrjNH9yRPVmist m h232DyAkKFK1UXJvdREkK5Roq K5eMfByJDCuNZKbB7PtpJFlKC amH560TFpxMrV3ZFUzfrXvE1I s JOQssSkjHqE8u9D4Mq9Oc5Hop prwPFK8IHkhCQTsByRzXsCgEa C4M6ZsEyl6OFYupHvhIY2fK1O h BMBqlfrjihvyyLW9IAKnVTWow Z62cHHfHBqqIm8ff6V4q748MD PxHKVpxT78Sc9toTgiPGZshHT U zR8iixrip9xqkhorFdXbMVOuD By3UNu0ATSzhRgeGkHvOZC6Ok U4PBZ4fKFnhX2qbFawictuxL7 w Oyc+F32iuP6rWJQ8QRU5syclY PQuwzDpJR57OS03U9YrMokeeS FibGU+RKFbabYnwRbwYN0kMuI j a2llc8IvGRjfS9TrTOFsCArqD cw7CVJiQJU9oZB2zH4gQFMkAO ydj3V4aWK4U3PjosLekw9hk5f s FNWyJHbcG77asKWdt7U9CTRjy FS1PGMisDymUlYjhP36Qxx+PG NeyNqqm8UwEhogo1dev2flkXm 9 VtBvNQBvioKwnBwzFWM3l0LzM z44U17dVAlkKKRiVREeIWOqKU AkrPatee6jtI5gNl7+PGNvbCB 3 nUK1wF3qAJWzKzH1HLsfR556K zFkyEXuLabts1czi0jsuLe1Ye MsBPWmneZjkMznRCH2i4KxAr9 8 C40mKGmwXBRsGDFgECJkFMWkl Abctu3czM5pSv5+KU5hw7ovbg 89nQ32eMM+VLUhNPH9xNftFWp w HRJmfX4gBQgvVdC4NFZmAgMuo C54jHZyIIbcDb0ojBsltHayHE 6dCBSmhsrxi640XlDub9jzZKP w sPQrUGbcLRV3I40dy3X1OTVsO YQgPHS8hPX1wX4agTgexpjltL LahHfozhMukJgoARerCBitU27 6 IHRvcDsnPlBhdGllbnQgTmFtZ Nf7A0MeDrz6GBIadYzwFX7spK ZnGZcsCy9ltLibeDenZY6pFXY p yhpab133ZxXmp3lcYNShgBRkJ MtaZZR1R96kl8R6HJOfGGTwIL L6aCB4zN3rmXtulrzkeVMosUj g itCweAnjWWsfDKrbS912JCVqq MmeDsAjmvBzLIZpdNO0DU24HK 61xCBcb6Z2hTE7W2UgBLAabdq t olhphXD5DMCzWJUrnU92Ym3hu MmxOf9gDHCaIFA0WGMwsBDmX3 GulM8dHnAoNWYkNLQiA1YiyXT t LQfjF850OKwxEzE7CRPtirIiN 6RvAWShyNndBmI5d6P1Vr0KP0 L2TD11DE42xRFsr9E2wTK3H1T h QCUbuprnanrzrNF9IKEjJYYfr Q63Xt5bdGxtSa5uRLQdWZU0VJ ArvYAxH2BlrJ8pDrIuLWQlUFA w O3FrtJRhFTlvP934QGbjEiP8D JSrliJkJ6ShEDCdmRbpLdN9f9 Q9Mk9BUOy4AJ30XC57cKDez5S 5 zXO8P0TlNTHemnqofssxyVI2E SIvPJUalJ99Mi4inIqmWi6nIE OmOMX6IPLeoKNqR4UudG8kFzN j OXScPXMlV4GadNIdWAmmA623T HirRgX8SRRdzfNhK6FmCPHgeC uoWrA5x4F4Zi1XSRJnTS48AXF 5 nOR3OQ36EP69C1FzRejacGTyt +PHRhYmxlIHdpZHRoPScxMD KzEaCaxKubAC1hAn4qOHOpGWA v zUnopEQhMcKtj8dbQEAzJBykI C8edTafD6GmnUB1SNHsz7q0Wj 83Q31aK6WlgXP+XTMwxUZ7xYG 0 nL2vXdNaPjE1UHkcC715OjWla ZLhDbpnp6sbl4ntaEh3YaH8NU PfkeBdhUogTQF3f2ElCk33C02 s IHdpZHRoPSIxNSUiIHZhbGlnb l1aiL0aEw8+IBZlqGL0oIH4cW 1wJrEaDmR2SVpqR230EwCmzVU v Yadue1ltq4cxxId3FjBvNILyk gFhhBjeZCD0a2IyFp37S1WklN xgm6ExXck0ay35dVCpz9K8vIH 9 X1FsPWYoumnptXDdmWznYY9tD IUyysqnSFVqiY7zRVLoL5c6Pd MsPkH0FAhaC6KxikN6WJCxjMU g NHrsDPV2Z15ff8D7SMLqLKSoO VR5iIO2gQ6bzSjwtewsuDOpjM dfnwWcsOdnZToaKPuhG795NQU v wNbsUORxcY8pUTQdjWMsrWzuT J2lQJAppmsiMhnJSWQDItdnIV 9LVE4ZDUFBZP78R0YlLkx2UWP z nEtuVO4yeKBsLAryDg7caGasl NmiDJ4kFZMtefiuNTUnoL0pPM ZbiCVdjEfpKQ5zKOHeruudq22 0 WvAsKUZ6QCSviNTbT8JraY0pR lLmCCOxZTMmU8YxyWTwGOhpQ5 74ZEckEcY2BJYxavKqI2UvLYW s rJaiNqW9z3C8Uj2dUM1iCz6aK Cf2EN14NI68uGYjt5O2hAA6S7 BgWMVfspzhinafiZW0ALLjKSG w wM85qZLuRXwdQp0is2C3k126I EMkTJCakL92Bc9uaIzhDBEccM LQmO2uhdjsp8rrruloFoYxKSY w GGb7JIw1XKBchOegPwApGRQ3U fO6XGZ7iCVvaU1ikUbimchlpI 9wOyc+YJXtJRBmggR3Y8JnBqt 0 BGKavZuqYG8meXVxYOllSc1xr HcqiQsqZJ9eLIVvozysRPWquC 5lMSCsjZUzyCosPX6gRZFokzl m j059BfScKBV5NNHegNWfX1Kwx B8sCjNrWWFxKIUmJ6FfjNAzOT sbE773CRbsQjQ6BVKeryMyB1O s RFMnvFrrLwE8j8R7Ot0XKQ3zi YO0D6AdKez7UKPyuXzbQG2xvF WmUVokIe9hlFlehDkfRO8nXKL p zhgoHZNecE9cCSKmnFPkwXuyI U1aUPTduhuak869JrPfHQN6OV XrfRGsB7UnaC0vTtDiCEFaPOF w N4WapHTdHOcdI153CJltYtH4F YWzhsMeK9NsBLJcyOojElJ2a5 D5Xg0BWSbcYJ0ezfQkCA1sdxX 8 J1AiSplnmGE+RF43CGRgPN82d IGspKMbt0gegXb2BdFlVWOvLB Q2qFbiZTucm3DuFZLiC55zyWG w h7D1XBWlyZzyvNYgQaZduZM9y M7pCApdqmbqi9cckkoiXndnz0 xmrl13vX33Q76sGGgsYTVvCVH z WHObQOChqAudjt5dkD9pEz6+P AXliRI8gCV2vT6hQcAaWtL3QM fcR265WfCqoRCbGgylp9sks9i k oDw5GzKhNXMonfSgbTfzPHC1x 5YiVc00J65qWVteGVMqJDZtLZ ImGTUtsXknej7jrK7uZx2+PC9 j e1adzd26nE69zIB+GWEvJJF3n BjkVLbcSSIgxB2uUWhcKkV1CB TqKiKfzZ46lNOlIUweNt3pfQr o qJivII5mVFZobpxep770LnVhb 0tjWIOggCUiABwbESH3N42uu3 O6POIcTKPmLUR1kMM4iQ6cfHj n bjogbGVmdDsgdmVydGljYWwtY CmcI977VXIknSayYqViwYFbP4 iujuAIZG9fZfhidJT+PHRkIHN 0 sNcuHEneJGNaeY3cEDVwH1u3J sBiKuI8CPxfB7ItbxY8FGAkkL LaABLegMFKzP3wzcvsf1gymof g CaEtGTJkOLf2QSo3FITfxQkuH lMhTOY8NaY2BKG7jWHhzS6tzC ysuazyrH5fIwh+RklOOjwvdGQ + FIMeNGH1kRqgHVfdJKSgbV3iY NAuV5y2LuKjTaR0RUizN1Uvsh M4EYGgwWXkMQSfiTTBnA3ucgl j p4onqjmlTdOcHZKmPNa9JCv8Z TRjgBcgUtPdBHA2TvK0XQO9mK DpsU5ncVbafdsktA6dKak+TVJ O OjwvdGQ+MSFyRYF6sVrpELjsM IBpvJ9rXMTtY3w3PyQuMkU8JB jxW9HlujT6MFGyyQJmYURifCG U dW0ffjntl8yusbcrHvOaKWGzF Yr8RNr2TDGukPghXcYyHJC5Ww J0PQK0cFQprR1lgGyrytdvfD0 w Oyc+LXN0NLX2AB79NN37Y8BoM jwvdGFibGU+PHRhYmxlIHdpZH OeKUohUBPkCoDbnWjaLC9uMy2 y ZGVy (more content not included)... Normal [facility] Consent for Treatmenton 08-09 Consent for Treatment [id number] Normal [facility] Consultation Noteon 08-31-19 Consultation Note Patient: MITESH BURGESS Age: 42 years Sex: Female : 1980 Associated Diagnoses: None Author: Ade Hennessy PA-C Subjective Chief complaint 08/31/2022 9:06 EST low back . Patient is a 41-year-old female with a past medical history significant lumbar neuritis, sacroiliitis, myalgia, left hip and knee pain. She underwent recent left-sided L4-5 transforaminal epidural steroid injection. This gave her 50-60% relief. She states that her quality of life and activities are both improved at this time. She states at this time her main concern is her left shoulder. She has a suspected labral tear. She had 2 injections at [place] and she is giving it some time. She states that if she does not get where she wants to be she is going to have surgery. She is thinking about doing this but she is going to give the injection another week to see how she does with it. Regards to her medications, she is taking methocarbamol 500 mg up to 3 times a day and Lyrica 200 mg twice daily. She tolerates the medications. She states that between the medications and the injection her leg symptoms are fairly well controlled. She really just wants to get her left shoulder taken care of. Health Status Allergies: Allergic Reactions (Selected) Severity Not Documented Adhesive Bandage- Rash. Clindamycin- Itching. Codeine- Nausea. Latex- Rash., Allergies (4) Active Reaction Adhesive Bandage rash clindamycin Itching codeine Nausea Latex rash Current medications: (Selected) Prescriptions Prescribed albuterol HFA 90 mcg/inh MDI: 2 puff(s), Inhalation, QID Shortness of breath or wheezing, 1 EA, Refill(s) 0, qid and prn sob/wheezing, [facility]/pharmacy #[id number], 160, cm, 04/27/20 22:06:00 EDT, Height/Length Dosing, 98, kg, 04/27/20 22:06:00 EDT, Weight Dosing off work: off work, See Instructions, 1 EA, 0, Patient had a procedure with our services. She should be excused from work for 10/30/21 and 10/31/21, Supply pregabalin 200 mg Cap: 200 mg = 1 cap(s), Oral, BID, X 30 day(s), # 60 cap(s), Refills(s) 2, [id number] 158, cm, 08/14/22 9:29:00 EST, Height/Length Dosing, 91.6, kg, 05/18/22 11:25:00 EST, Weight Dosing pregabalin 225 mg oral capsule: 225 mg = 1 cap(s), Oral, BID, # 60 cap(s), Refills(s) 2, [id number], 158, cm, 08/31/22 9:15:00 EST, Height/Length Dosing, 91.6, kg, 05/18/22 11:25:00 EST, Weight Dosing Documented Medications Documented LIOTHYRONINE SOD 5 MCG TAB: LIOTHYRONINE SOD 5 MCG TAB Lamictal 25 mg Tab: 50 mg = 2 tab(s), Oral, Bedtime, Refills(s) 0, Seizure Lamictal: 200 mg, Oral, Bedtime, Refills(s) 0, Seizure Multi Vitamins oral tablet: 1 tab(s), Oral, Daily, Refill(s) 0, Prophylaxis Pristiq 100 mg Tab-ER: 200 mg = 2 tab(s), Oral, Daily, # 30 tab(s), Refills(s) 0, Depression SEROquel 100 mg Tab: 200 mg = 2 tab(s), Oral, Bedtime, Refills(s) 0, Depression Trokendi XR 100 mg oral capsule, extended release: TAKE 1 CAPSULE BY MOUTH EVERY DAY Vitamin C 500 mg Tab: 500 mg = 1 tab(s), Oral, Daily, Refills(s) 0, Prophylaxis Vitamin D3 2000 intl units: See Instructions, daily, Refills(s) 0 Vraylar 1.5 mg oral capsule: 1.5 mg = 1 cap(s), Oral, Daily, Refills(s) 0 Zyrtec: 10 mg, Oral, Daily, PRN Allergy symptoms, Refills(s) 0 busPIRone 15 mg Tab: 15 mg = 1 tab(s), Oral, TID, Refills(s) 0, Anxiety calcium (as carbonate) 600 mg oral tablet: 600 mg = 1 tab(s), Oral, Daily, Refills(s) 0 levothyroxine 50 mcg (0.05 mg) Tab: TAKE 1 TABLET BY MOUTH EVERY DAY potassium chloride: 40 mEq, Oral, Daily, Refills(s) 0 Problem list: All Problems Synovial cyst of lumbar spine / SNOMED CT 7901279067 / Confirmed Neuropathy / SNOMED CT 8578286229 / Confirmed Ascending aorta dilation / SNOMED CT 657369386 / Confirmed Anxiety / SNOMED CT 70330848 / Confirmed Bipolar disorder / SNOMED CT 05257929 / Confirmed Labral tear of shoulder / SNOMED CT 962398788 / Confirmed Resolved: At risk for falls / SNOMED CT 528768310 Problem added when Risk for Falls Careplan was initiated. Resolved due to patient discharge. Resolved: Migraine / SNOMED CT 47966773 Resolved: Seasonal allergies / SNOMED CT [id number] Objective Vital Signs 08/31/2022 9:06 EST Peripheral Pulse Rate 71 bpm Respiratory Rate 18 br/min Systolic Blood Pressure 114 mmHg Diastolic Blood Pressure 75 mmHg Mean Arterial Pressure, Cuff 88 mmHg General: Alert and oriented, No acute distress. Eye: Normal conjunctiva. HENT: Normocephalic, Normal hearing. Cardiovascular: No edema. Musculoskeletal Normal range of motion. Normal strength. Other than left shoulder which has diminished range of motion due to pain Integumentary: Warm, Dry, [place]. Injection site well-healed Neurologic: Alert, Oriented. Psychiatric: Cooperative, Appropriate mood & affect. Impression and Plan Patient is a 42-year-old female with a past medical history significant for sacroiliitis, chronic pain, and [place] (more content not included)... [facility] [facility] Comment on above: Result Comment: Elec tronically Signed By: Ade Hennessy PA-C\.br\Date and Time Signed: 08/31/22 09:31 EST\.br\Electronically Co-Signed By: Hai JAY, Boy Wilson\.br\Date and Time Co-Signed: 09/11/22 14:52 EST Legal Correspondence Officeo n 08-31-2022 Legal Correspondence Office [id number]#1.00CD:1 27 [facility] Office/Clinic Note-Physician on 08-31-2022 Office/Clinic Note-Physician [id number]#1.00CD:1 27 [facility] Patient Correspondenceon Patient Correspondence [id number]#1.00CD:1 27 [facility] Patient Correspondence [id number]#1.00CD:1 27 [facility] Patient Correspondence [id number]#1.00CD:1 27 [facility] Patient History Officeon Patient History Office [id number]#1.00CD:1 27 [facility] Office Visiton 08-28-2022 Follow-up visit [id number] Georgia Burgess 1980 F Date Provider Department Center 08/28/2022 EDUARDO BLAND MP ORTHO MPORTHO No family history on file Level of Service:49368 SC OFFICE/OUTPATIENT NEW LOW MDM 30-44 MINUTES (25) Reason for Visit and Comments: Pain [136] Normal [facility] US KIDNEYSon 08-27-2022 US KIDNEYS Begin Addendum # 1 Right superior renal cyst with internal septations was previously demonstrated on prior cross-sectional, contrast enhanced imaging to include 05/27/2022 MRI and 04/16/2016 CT. Prior assessment of the right superior pole septated cyst on recent MRI (considered a more definitive evaluation of renal cysts) was consistent with benign etiology given long-term stability from 2016 CT. Although measurements of the superior pole cyst are slightly increased on current ultrasound study from remote 2016 CT, this can be due to differences in exam technique. Original Report US KIDNEYS EXAM DATE: 08/25/2022 7:00 AM MST COMPARISON: MR abdomen with and without contrast 05/29/2022. CT abdomen and pelvis with contrast 04/16/2016. INDICATION: Renal cystic disease. TECHNIQUE: Real-time ultrasound scanning of the kidneys and bladder was performed by the flour blender. Weatherization Crew Leader static images are submitted for review. FINDINGS: Right Kidney: The right kidney measures 11.9 x 5.4 x 4.7 cm and has a volume of 157 mL. Normal echogenicity. No hydronephrosis. Echogenic foci measuring 0.2 x 0.1 x 0.3 cm and 0.5 x 0.4 x 0.4 cm respectively are associated with twinkle artifact. A simple appearing renal cyst measures 2.9 x 2.6 x 3 cm; no internal vascularity is noted. A superior renal cyst with internal septations measures 2.9 x 2.7 x 3.0 cm (previously 3.1 x 2.2 x 2.[address]); no internal vascularity is noted. Renal cortex measures 1.2 cm. Left Kidney: The left kidney measures 11.3 x 4.4 x 5.8 cm and has a volume of 153 mL. Normal echogenicity. No hydronephrosis. An echogenic focus measures 0.3 x 0.2 x 0.3 cm. No obvious contour deforming lesion or solid renal mass. Renal cortex measures 1 cm. Bladder: Bladder volume measures up to 133 mL. No focal or diffuse bladder wall thickening noted. IMPRESSION: 1. Bilateral right renal cysts. Redemonstrated right superior renal cyst demonstrates internal septations. 2. Bilateral nonobstructive renal calculi. 3. No hydronephrosis. Normal [facility] Covid-19 PCR (CVDTB)on SARS-CoV-2 (COVID-19) RNA AJYNE+probe Ql (Unsp spec) Not detected Normal NOT DETECTED [facility] Comment on above: Result Comment: This test is not yet approved or cleared by the [place] FDA. When there are no FDA-approved or cleared tests available, and other criteria are met, FDA can make tests available under an emergency access mechanism called an Emergency Use Authorization (EUA). The EUA for this test is supported by the [place] of Health and Human Service's (HHS's) declaration that circumstances exist to justify the emergency use of in vitro diagnostics for the detection and/or diagnosis of the virus that causes COVID-19. This EUA will remain in effect (meaning this test can be used) for the duration of the COVID-19 declaration justifying emergency of IVDs, unless it is terminated or revoked by FDA (after which the test may no longer be used). When diagnostic testing is negative, the possibility of a false negative should be considered in the context of a patient's recent exposures and the presence of clinical signs and symptoms consistent with SARS-CoV-2. Performed By: #### L IPID, URIC, CMP, T7, TSH #### [facility] [address] [place] [address] Dr. Alejandra Crystal INFLUENZA A AND B AGon 08-16 [facility] SEE BELOW Normal [facility] Comment on above: Result Comment: Nega tive for Flu A protein angiten. Infection due to Flu A cannot be ruled out. Flu A angiten in the sample may be below the detection limit of the test. Performed By: #### O BSCRN #### [facility] [address] [address] [address] [facility] SEE BELOW Normal [facility] Comment on above: Result Comment: Nega tive for Flu B protein antigen. Infection due to Flu B cannot be ruled out. Flu B antigen in the sample may be below the detection limit of the test. Performed By: #### O BSCRN #### [facility] [address] [address] [address] Alejandra Crystal INFLUENZA A AG Negative Normal NEGATIVE SEE COMMENT [facility] Comment on above: Performed By: #### O BSCRN #### [facility] [address] [place] [address] Dr. Alejandra Crystal INFLUENZA B AG Negative Normal NEGATIVE SEE COMMENT [facility] Comment on above: Performed By: #### O BSCRN #### [facility] [address] [address] [address] Alejandra Crystal Coding Summary.on 08-15-2022 Coding Summary. CD:[id number] Gh0bW w+PGhlYWQ+HH0QEQWmT75seMO yjG4VK4uMZE7FGGERUUBOPU8V JE1bfMU1NIhaD6XsrzEc MmowpUFuPR70EVn5DJR0hFhnP IazxX2brOFlY5v5AlDzIU43lS 50JJhmOUQpDbL1OtSlamkfaTR y L8uhRgOksBTwHdc+PHRhYmxlI HdpZHRoPScxMDAlJyBzdHlsZT 0zUh2dEDDeGMXikDuhyFKvAqW j e6vpWZEiMTooBR6zpUggX5Vtv QQ2BEDmh0c2Nf19dNH+PHRkIH Q9xUckWProx429FxDdm7ftACH 3 iZWyKArwPUR1D81yz0Q9SIOuM HYvCVH7xFQ0dF2tmZoupgjbI8 NzwTBdAdO3SRC8pFUulY3zsPd n sirldE4yNhk+Y16FHY9ERAPSL O1JRuu2L1LpVcchzHH+PC90YW AoPB47iEWuzPLum7lreNe3EoH w FZVfCIE0qPkjJDpkh0EsQASzT 81yeDGfg8L1FFJodMdhcFTlRy NauQW2kJ4kWXdevgqvv9frbpi n Gxmss8ofpc65uN45A12mPBuwV FReSAK6IYOoZKFedOwxhu6npK 9wIi8+CTkre7skt4eagSx1ToX w AOXcviAggNqyPRH7t1HaEr58B 4NarPxwv1HfIzu5xa38xDPdb2 V0kKY1HCrxNCHrvX5xIVfzSuB 6 LPYxLoEwmW09zWNnSShcTj3hu OywzEhbGD0fPLNweodqSTXrcS 0kQLSxhCIhkYwnPW1gAJDnnww m q177FxOoWEO7DYSllRNyY8Hos C1aBbUfUQVbRLQiI6QcfJSiFF tuB080OMthIwR7TVMqvaWuH5J s QJYahDvaInQ5q6R7Qi9Sz0Tjo jhcPLN4AMbjDUPfKwJ9VrWbFp R0I6KgRqp4QXUskXbmWJ3qL3G h TEDuakupqydezDX4TLNiPBYrf C46zIOjMMgsGy9rx5V4q114GG RvORYifQ51Ue9daEpdQGIedOF U iS3fhsqhj0spshxrNdCkYILdY Bw5LQt0GDChwEouWdEkBFG4Te W0CPI5oTIgfQ3txGjefhzlfP2 w Oyc+H75ezA7oHOY7JEH5jrerH FItfpMySY49LN70C6XlEpxihA FibGU+LXIqiuSqsJqaFY7rPwY j k4zmb6OcXJjzJ1JvWDUpSMuoZ gd9ZXMdGEK9bNV0uS6sYTPwSI ejf2L0uQL0Q3MknnWswh0su6r s ONEwGUebR20cwCHnv1B7GYAhp ZC4DTHoaIxwSgEwoU71Pts+PG SdoZbzb4AsHnydl9wav7fiaBa 9 NoZbXTJjwrTetZsnWCI6m0CwZ l30D70hVAocMGDjSBTyWJBjQB TrjGybev8hyD8sNq3+PGNvbCB 3 cCN2pJ9fNGQwCzP4RMosD325F zCmdXZhEeasd2xeg2ndvMq8Sn IuHKQhmgWonHrsFCF9p5DlPl0 8 H05bFJckNDDjMHGsQPUnCFIuj Yqryz1fqQ1lKf9+UH1bx2sssr 48tN73aJI+GDOpSBB1iIwjGKi w RBKbtS2qOGllPeN0REMmFcFos D58iYWgSVxvKj5auLpqoRbzKS 7eMBUgsnyje149ThYhi2mzKYT w tVHsTTchJBG2A56lc9W2CCMvD GXpEAT1xEP6eV3nzSmfkdvqdZ QqsTalqsPrwTukROptNXzgH30 6 IHRvcDsnPlBhdGllbnQgTmFtZ Es1C1XsCia5YFSlhUjfYR2xxH FaRLaiWl4fnNqtkQvoAZ9pMRD p yqfrm821BmUdr8lsZHJdtMXzZ GssWDY4T03bd2X2HGWzXNZwQY W6aVT8jC7zzWrutgclqZQdoXr g orQxmSseVRgjTTyuL151QFAqp NgeUsFrwwKyMYNsxEQ2SV11LS 93fAUww1N6xCI5P4LhJDKaevo t xoezeHM9GHIwYXXzsR53Ys1lq JpyBf3mHTLbRLC5BQEkrMKhC6 NriV4eMpYmYZWbIAUlY3FajZB t CAxxG568BKloXhX4SRHpkqIoZ 9GpDEOxmKxdZhK0a7J9Fy3GA1 A4RG36NW33kZKff2N3kMC1A2M h XEWiinscxmdajHH7YEShBWBtz W75Hq5vrAglMr2tPRHwCHX2VA WyiTFwF7IyjS1jGaDxNZPcDGD w Q8WuvFLtWXaeX176POsvAaM0T TSuniKsX0KwWFLatGvhHeV7c9 W7Ps2FKJj2HR50RV79zKXvc4Y 5 oUT0X7PbVLPqtfhrmnmnxNG6N HKxSCDmcK04Zk5kiDdrCn1uYB XeXUP8FTGfmZOcP0XrqA3eXyV j LAGrXSNmF1HnxUQbLMudN267M CpmLhC8ORQmrlIiZ9HpCKZulU puHbH0z4M8Lp6USFTxHR07YID 5 jDW5DH24FS11C3HgLlshxDXvx +PHRhYmxlIHdpZHRoPScxMD IfIxRuuIpsMU0bDn1dWOPtRCE v eZiaxIBwQtCvv4lsFCMhDGivY Z5igKlfE2RkrZZ6VRTbr1f4Tk 62P85aZ6SztUY+KFBjzWP1uPA 0 lB0cGwAaOpR5TJiiG456MtIzm KRkEmboj9nsl2vahHv2DmL2YD PlgqDgyAlxQUI2n5UrGb45D85 s IHdpZHRoPSIxNSUiIHZhbGlnb m8jyR9qFc3+KYBpoCC9mWT8sF 6bZyHtKzM5LJrhA544HnGkiOJ v Ifsii2upj4vzqAv3JdPcRHAiq cCplNznPFK1s9AxZt84J5BanC nhv7RxEud5wf92lTTvd7X2nQG 9 E2LzSMVnibcboUWdhBooHU7lU YWiagwsXESlyS2gZAKoY6b6Ar AnSaM1EPrnJ9ErciR7ZUBgvYZ g GBkdFVG1P21ez6M4JDYdHPFnK OK1wQQ8zW7yyAnqvrwunPOewF nuapFjfIgxWVzfYKvqT602AOW v vNacNLZugE9jTPRerDGtaZphK D6hBFHyacomWcjGRXLQNnhbFK 2UEP8JKTULLI97E5ZvJcl7LMA z jRqhVC7tfKSxPHqqDl6cfSixy AenPS7xSNIhrwplCCMxxY3lNO UcsTYduUuyWX7gQLMzofwmw58 0 TaLoYQG5ZULqyNUeF1TvfE0dO kXaRKLfWQDzH5PjbZEfUBzlQ6 83CCniDiL6DHWxpzTnF3WdFPY s cGekWyA6k7S4Qg7nNZ3tWs0wD Tv5LY05EP10vAQjt5B6pNC6H8 UxEIEbrmgqrdfmfPA4WEIqOTI w nV99qSKdQOfqVi1tr4I0h415G ZTcFEOkjP63Er9vkTvlLHEywC YAaD3pbfwah4vdgqmyMeOkQEK w FKh9JKv7FBRvaUnfNdKnTKI7N kH0TXA4eXJeyU7wfNhugjijoC 9wOyc+CGPePBLlzvU3Z7ZwFtb 0 XZBaoYvwLT9xwPRfEUybFa4cg RmvgPjsRO0vOAXzrfckNTPemI 1mAIPidPQmwDqsLZ5xFAAsalj m l213AqJxFFU9NREtvITxL7Rba Y4mUxCfGDNsXCSxA0JgaDShVC aqH112RUtoWnA5NEZaeqWbN9W s SFMmxGywAyQ9m9S4Ye7YXX2sq LO1Q8UuDqy5EKGqeTmuMZ5zqX YyYOarEj9zeWatvGstGZ0kXAG p mjtgCYIdtG4pXDEthKLbbOqqD H8dXQNygzwnj580QoUxUIJ9JV PipGUcK8XzsR9uQeZaULIkSHQ w A8BciEDzRKkaQ915OTfaSyE1S GHrkhCdI6YaKRAdeMdkHkD2g3 C7Bq2WFWzwXT7labWoMH9rhbQ 8 Y7IbYxkccLZ+XX55KCEgRO79k MVbxNKdn7dntAh6XzDyLOMuBZ Q8pTwgFCqyn8ZmCFDqG38cwEG w x7K6WXMkdKfyaFQzOcNahXV1q X2sVVkreikcc6xefhqtMjqzi3 rdbx12sJ75H85sYLmfLIScIIO z XPBgQIZgrPvwjw5bzE2yEw1+P POztEL8rKJ1hB5sXpWyXsU1JL qkQ681AoDquPYlBtxcb5rzd7v k uXx1AoNaRQSacxGavFlsMKD8y 3UlBc33L62cQGnvHZPyCGJeOF ToBIPjmXrrjn9qbH2hMo8+PC9 j h6hhpt51wZ31gZZ+GAKpRCZ3h EkzHPasADQeqS1xPGpwQbA7FF CzUgVsmY20jAGcLTguWl2ucNu o xTgaOI3cHOAskzetg714TlUrk 0efNTExaVBxVJehHBB6W83xa3 M1XETfCAIqVJP9bJQ7sY7qhRt n bjogbGVmdDsgdmVydGljYWwtY WiuO532OKJnnDsnRcZkyYZcH6 aixgBKCN6dAgdezZW+PHRkIHN 0 hSbuBMxlNUAbsV1vMFFsH4i4R zToDnD7VMuvZ0NicyP6UBEvzN BsVTAbyEWWfZ1ikvlpw9wciwg g WuInLGMrGPr3XWw8FYBoiGjaJ wUzUNT4NjW3UBR0vMHvwJ1wvV vpyrmvtF9vQfq+RklOOjwvdGQ + YSYaBQI6nAosOTgwQPZxtS2aW YRhK9q6EqZoWpP9EWqgC5Ostm D8MYVcnQKwHEAsjVITfE2bcjz j h1tpzbelXcLvOBOiQUb3JOq2X CAwlDvgHjJpQZH9YwR7VAQ5sW FpuV9bpIgxgoomdO3bPge+TVJ O OjwvdGQ+QEIsWQO4oSifODcgX OPifI8aNEGkZ9r0YpXoJyZ0TY koE6SwhgW7IYNjgTOfIEJllGE U sC4tbsixl5soiypcMsBwOHJwD Ve2QUu6MOSadOywNbWkBIM2Nt G8ULA3fYEjjR3xjUdksmlznB4 w Oyc+DOA5WAC4BS44YN34T5DmP jwvdGFibGU+PHRhYmxlIHdpZH IjRBrcRQOnDlBpyQngUE3lLr6 y ZGVy (more content not included)... [facility] Consent for Procedure/Surger yon 08-14-2022 Consent for Procedure/Surgery [id number]#1.00CD:1 27 [facility] Consent for Treatmenton Consent for Treatment [id number]#1.00CD:1 27 [facility] Discharge Instructionson Discharge Instructions [id number]#1.00CD:1 27 [facility] IntraOperative Documentson 0 08-14-2022 IntraOperative Documents [id number]#1.00CD:1 27 [facility] Main OR Intraoperative Recor don 08-14-2022 Main OR Intraoperative Record IntraOp Document Type FTPM Summary Primary Physician: Boy Valles MD Finalized Date/Time: 08/14/22 10:10:24 Pt. Name: MITESH BURGESS/Sex: 1980 Female Med Rec #: [id number] Physician: Hai JAY, Boy Wilson Financial #: [id number] Pt. Type: P Room/Bed: / Admit/Disch: 08/14/22 08:49:32 - Institution: Case Times FTPM Entry 1 Patient Times In Room 08/14/22 10:04:00 Out Room 08/14/22 10:10:00 Procedure Times Start 08/14/22 10:07:00 Stop 08/14/22 10:09:00 Anesthesia Times Last Modified By: Chetan DOUGLAS, Francheska Watson 08/14/22 10:10:16 Case Attendance FTPM Entry 1 Entry 2 Entry 3 Case Attendee Hai JAY, Boy Valles MD, Boy Pires RN, Brandi Samuel Role Performed Surgeon - Primary Surgeon - Primary Staff - Other Time In 08/14/22 10:04:00 08/14/22 10:04:00 08/14/22 10:04:00 Time Out 08/14/22 10:10:00 08/14/22 10:10:00 08/14/22 10:10:00 Procedure TRANSFORAMINAL EPIDURAL TRANSFORAMINAL EPIDURAL TRANSFORAMINAL EPIDURAL STEROID INJECTIO(Left) STEROID INJECTIO(Left) STEROID INJECTIO(Left) Comments Dr Michelle-student Last Modified By: Chetan RN, Francheska Benton RN, Francheska Benton RN, Francheska Watson 08/14/22 10:10:17 08/14/22 10:10:17 08/14/22 10:10:17 Entry 4 Entry 5 Entry 6 Case Attendee Chetan DOUGLAS, Francheska Webber RN, Hanh Ontiveros Role Performed Associate Professor Of Radiology - Primary Scrub - Primary Mixer Attendant Time In 08/14/22 10:04:00 08/14/22 10:04:00 08/14/22 10:04:00 Time Out 08/14/22 10:10:00 08/14/22 10:10:00 08/14/22 10:10:00 Procedure TRANSFORAMINAL EPIDURAL TRANSFORAMINAL EPIDURAL TRANSFORAMINAL EPIDURAL STEROID INJECTIO(Left) STEROID INJECTIO(Left) STEROID INJECTIO(Left) Comments Last Modified By: Chetan DOUGLAS, Francheska Benton RN, Francheska Benton RNFrancheska 08/14/22 10:10:17 08/14/22 10:10:17 08/14/22 10:10:17 Perioperative Protocols FTPM Pre-Care Text: Implements protective measures prior to operative or invasive procedure, confirms identity before the operative or invasive procedure, verifies operative procedure, surgical site, and laterality Entry 1 Procedure(s) TRANSFORAMINAL EPIDURAL Patient Identity Birthday, ID Band STEROID INJECTIO(Left) Verified (select at Check, Patient least 2): Participation Consents / H and P HandP, Surgery/Procedure Operative Site Present Verified Consent Marking Verified Surgical Site Yes Laterality Verified Yes Verified Procedure Verified Yes Correct Patient Yes Position Verified Availability Equipment, Medication, Prep Dry Yes Verified (If X-ray Applicable) PreOp Antibiotic No Time Out Francheska Benton RN, Given Participants Akbar DOUGLAS, Hai Hernandez MD, Amy Mtaamoros Amy, Pritchard RN, Brandi Samuel Time Out Complete 08/14/22 10:05:00 Outcomes Met? Yes Last Modified By: Francheska Benton RN 08/14/22 10:05:36 Post-Care Text: The patient is free from signs and symptoms of injury caused by extraneous objects Allergy Information FTPM Pre-Care Text: Verifies allergies Entry 1 Allergies Reviewed? Yes Allergies Reviewed Self/Patient With Outcomes Met? Yes Last Modified By: Francheska Benton RN 08/14/22 09:05:51 Post-Care Text: The patient received appropriate medication(s) safely administered during the perioperative period Surgical Procedures FTPM Entry 1 Procedure Description Procedure TRANSFORAMINAL EPIDURAL Modifiers Left STEROID INJECTION Surgeon Description L4/5 TFESI Primary Procedure Yes Primary Surgeon Boy Valles MD Start 08/14/22 10:07:00 Stop 08/14/22 10:09:00 Anesthesia Type None Surgical Service Pain Management Wound Class 1 - Clean Last Modified By: Francheska Benton RN 08/14/22 10:10:19 General Case Data FTPM Pre-Care Text: Classifies surgical wound, implements aseptic technique, initiates traffic control Entry 1 Case Information OR Pain Proc Room Case Level Level 2 Wound Class 1 - Clean Specialty Pain Management Preop Diagnosis M54.16 Postop Same As Preop Yes Postop Diagnosis M54.16 Outcomes Met? Yes Last Modified By: Francheska Benton RN 08/14/22 10:05:59 Post-Care Text: The patient is free from signs and symptoms of infection Skin Assessment (Pre Procedure) FTPM Pre-Care Text: Implements protective measures to prevent skin/ tissue injury due to thermal or mechanical sources Evaluates for signs and symptoms of physical injury to skin and tissue Entry 1 Skin Integrity Intact, [place], Warm, and Skin Abnormality No Dry Outcomes Met? Yes Last Modified By: Francheska Benton RN 08/14/22 09:06:00 Post-Care Text: The patient is free from signs and symptoms of injury caused by extraneous objects Patient Positioning FTPM Pre-Care Text: Identifies physical alterations that require additional precautions for procedure-specific positioning, verifies presence of prosthetics or corrective devices, positions the patient, evaluates the patient for signs and symptoms of injury as a result of positioning Entry 1 Procedure TRANSFORAMINAL EPIDURAL Fabricio (more content not included)... Normal [facility] Main OR Preoperative Recordo n 08-14-2022 Main OR Preoperative Record Holding Area Document Type FTPM Summary Primary Physician: Boy Valles MD Finalized Date/Time: 08/14/22 09:29:11 Pt. Name: MITESH BURGESS D.O.B./Sex: 1980 Female Med Rec #: [id number] Physician: Boy Valles MD Financial #: [id number] Pt. Type: P Room/Bed: / Admit/Disch: 08/14/22 08:49:32 - Institution: Case Times Holding FTPM Pre-Care Text: Verifies consent for planned procedure, identifies individual values and wishes concerning care, includes family members in perioperative teaching Secures patient's records' belongings, and valuables, maintains patient's dignity and privacy, and maintains patient confidentiality Entry 1 In Holding 08/14/22 09:27:00 Outcomes Met? Yes Last Modified By: Marybeth Melgar RN 08/14/22 09:27:49 Post-Care Text: The patient participates in decisions affecting his or her perioperative plan of care The patient's right to privacy is maintained Surgery Checklist FTPM Entry 1 Patient Birthday, ID Band Procedure History and Physical, Identification: Check, Patient Verification: Surgical Consent, With Participation Patient NPO after Midnight: Yes Date/Time: 08/14/22 09:28:00 Results Reviewed N/A Personal Items: Glasses Comments: Personal Items Pt. wearing glasses. Complaints of Pain: Yes Comment: Pain Comment: 02/14 left lower back Operative Site Yes pain Marking: Marked By: Dr. Valles Location: left L4-L5 Availability Equipment, X-Ray Verified: Does Patient Smoke No Patient states Yes Comment - Adult mom-Amelia postop adult Supervision supervision available Case Cancelled in No Holding Area see comments below for reason Last Modified By: Marybeth Melgar RN 08/14/22 09:29:09 Finalized By: Marybeth Melgar RN Document Signatures Signed By: Marybeth Melgar RN 08/14/22 09:29 Normal [facility] Operative Reporton Operative Report Patient: MITESH BURGESS Age: 42 years Sex: Female : 1980 Associated Diagnoses: None Author: Hai JAY, Boy Wilson Procedure Procedure: Transforaminal Epidural Steroid Injections with Fluoroscopic Guidance at Left L4/5 Diagnosis: Lumbar Radiculitis Anesthesia: Local The patient was identified in the pre-op area. The procedure, including risks benefits and alternatives was discussed with the patient. The patient agreed to proceed. Informed consent was obtained and the site(s) marked. The patient was brought to the procedure room and placed in the prone position with padding under the abdomen to reduce lumbar lordosis. Time out was performed. The back was prepped and draped in sterile fashion with Chloraprep. Skin and subcutaneous tissues were anesthetized with 2 mL of Lidocaine 2% through a 25G needle. A 22G spinal needle was advanced under fluoroscopic guidance through the left L4/5 foramen into the epidural space. Isovue 0.5mL was injected under live fluoroscopy, which demonstrated appropriate epidural spread without vascular uptake. After confirmation of negative aspiration, a total of 1mL of 2% PF lidocaine, 1 mL PF normal saline, and 10mg of PF dexamethasone (10mg/1mL) were injected through the needle. The needle was removed and a bandage applied. The patient was brought to the recovery area in stable condition and then monitored for an appropriate period of time. The patient was discharged home in good condition with post-procedure instructions. No apparent complications. Epidural injection procedure Physical Exam: vital signs Vital Signs 08/14/2022 10:08 EST Heart Rate Monitored 69 bpm Respiratory Rate 14 br/min Systolic Blood Pressure 126 mmHg Diastolic Blood Pressure 76 mmHg SpO2 96 % 08/14/2022 9:29 EST Heart Rate Monitored 79 bpm SpO2 97 % 08/14/2022 9:29 EST Systolic Blood Pressure 118 mmHg Diastolic Blood Pressure 73 mmHg Mean Arterial Pressure, Monitered 88 mmHg 08/14/2022 9:28 EST Temperature Axillary 36.5 DegC 08/14/2022 9:28 EST Respiratory Rate 12 br/min LOW . Normal [facility] Comment on above: Result Comment: Elec tronically Signed By: Hai JAY, Boy Wilson\.br\Date and Time Signed: 08/14/22 10:10 EST Radiology Outside Office [employer] yon 08-14-2022 Radiology Outside Office Copy [id number]#1.00CD:1 27 Normal [facility] Radiology Outside Office Copy [id number]#1.00CD:1 27 Normal [facility] MRI SHOULDER LT WO CONon MRI SHOULDER LT WO CON EXAMINATION: MRI SHOULDER LT WO CON HISTORY: Impingement syndrome of shoulder region COMPARISON: No relevant comparison available. TECHNIQUE: A variety of imaging planes and parameters were utilized for visualization of suspected pathology. Imaging was performed without contrast. FINDINGS: ROTATOR CUFF REGION CUFF TENDONS: Normal. No visible tendinitis or tear. CUFF MUSCLES: Normal appearing muscles. DELTOID: Normal. No significant atrophy or tear. LONG BICEPS TENDON: Normal. No abnormal signal, attrition, or tear. LABRUM/BICEPS ANCHOR SUPERIOR: Normal. No visible labral tear or biceps anchor pathology. ANTERIOR/INFERIOR: Thick band of soft tissue extending from inferior margin of the glenoid 2 anterior margin of glenoid, extending across the glenoid fossa and overlying the articular surface. POSTERIOR: Normal. No posterior labrum abnormality. CAPSULE Normal. No visible capsular laxity or thickening. AC JOINT REGION AC JOINT: Mild osteoarthropathy with no significant narrowing of the underlying coracoacromial arch. AC LIGAMENTS: Normal acromioclavicular ligament. CC LIGAMENTS: Normal coracoclavicular ligaments. ACROMION: Normal horizontal (Type I) configuration. SUBACROMIAL BURSA: Normal. No significant effusion. HYALINE CARTILAGE: Normal. No visible cartilage narrowing or focal defect. OTHER BONES: Normal proximal humerus, glenoid, and coracoid. OTHER OBSERVATIONS: The duodenum injected into the joint capsule is also infiltrated the subscapularis muscle. No convincing edema of the muscle. IMPRESSION: 1. Band of soft tissue extending across the lower anterior aspect of the glenoid articular surface; larger than expected for displaced labrum, but this may represent disruption of the anterior inferior labrum with displacement into the joint. Electronically authenticated by: CHAY MENDOZA Date: 2022-08-13 15:18 Normal [facility] XR ARTHRO SHOULDER LTon XR ARTHRO SHOULDER LT EXAMINATION: XR AR THRO SHOULDER LT HISTORY: Impingement syndrome of shoulder region COMPARISON: No relevant comparison available. TECHNIQUE: An arthrogram was performed under fluoroscopic guidance using non-ionic contrast material in the usual sterile manner after obtaining informed consent. Standard level fluoroscopic mode of operation utilized. FINDINGS: JOINT: Left shoulder NEEDLE: 25 gauge, 3.5 spinal needle. MEDICATION: Approximately 6 mL injected into joint space consisting of a mixture of 5 cc Omnipaque-300, 5 cc 1% Xylocaine and 0.2 cc Dotarem. TECHNIQUE: Anterior approach under fluoroscopic guidance. CLINICAL: Decreased pain following the injection (7/10 preinjection; 4/10 post injection). COMPLICATIONS: None. BONES: No fracture, significant osseous degenerative changes, or visible bone lesion. BURSA: No visible extension of contrast into the subacromial-subdeltoid bursa at this time. OTHER: Negative. IMPRESSION: 1. Technically successful arthrogram without complication. 2. Please see separate MRI arthrogram report. Electronically authenticated by: CHAY MENDOZA Date: 2022-08-13 15:07 Normal [facility] Patient Correspondenceon Patient Correspondence [id number]:1 27 Normal [facility] Insurance Correspondence Off iceon 07-16-2022 Insurance Correspondence Office [id number]:1 27 Normal [facility] Consent for Treatmenton -2 Consent for Treatment [id number]:12 7 Normal [facility] Covid-19 PCR (CVDTBH)on 05-10 SARS-CoV-2 (COVID-19) RNA JAYNE+probe Ql (Unsp spec) Not detected Normal NOT DETECTED [facility] Comment on above: Result Comment: This test is not yet approved or cleared by the [place] FDA. When there are no FDA-approved or cleared tests available, and other criteria are met, FDA can make tests available under an emergency access mechanism called an Emergency Use Authorization (EUA). The EUA for this test is supported by the Desk Manager of Health and Human Service's (HHS's) declaration that circumstances exist to justify the emergency use of in vitro diagnostics for the detection and/or diagnosis of the virus that causes COVID-19. This EUA will remain in effect (meaning this test can be used) for the duration of the COVID-19 declaration justifying emergency of IVDs, unless it is terminated or revoked by FDA (after which the test may no longer be used). When diagnostic testing is negative, the possibility of a false negative should be considered in the context of a patient's recent exposures and the presence of clinical signs and symptoms consistent with SARS-CoV-2. Performed By: #### L IPID, URIC, CMP, T7, TSH #### [facility] [address] [place] [address] Dr. Alejandra Crystal INFLUENZA A AND B AGon 06-06 [facility] Normal [facility] Comment on above: Result Comment: Nega tive for Flu A protein angiten. Infection due to Flu A cannot be ruled out. Flu A angiten in the sample may be below the detection limit of the test. Performed By: #### I NFLUAB #### [facility] [address] [place] [address] Dr. Alejandra Crystal INFLUBNEG SEE BELOW Normal [facility] Comment on above: Result Comment: Nega tive for Flu B protein antigen. Infection due to Flu B cannot be ruled out. Flu B antigen in the sample may be below the detection limit of the test. Performed By: #### I NFLUAB #### [facility] [address] [address] [address] Alejandra Crystal INFLUENZA A AG Negative Normal NEGATIVE SEE COMMENT [facility] Comment on above: Performed By: #### I NFLUAB #### [facility] [address] [address] [address] Alejandra Crystal INFLUENZA B AG Negative Normal NEGATIVE SEE COMMENT [facility] Comment on above: Performed By: #### I NFLUAB #### [facility] [address] [address] [address] Alejandra Crystal INTERNAL CONTROLS Within Normal Limits Normal Wi thin Normal Limits [facility] Comment on above: Performed By: #### I NFLUAB #### [facility] [address] [place] [address] Dr. Alejandra Crystal MRI ABDOMEN WO W CONon 05-31 MRI ABDOMEN WO W CON EXAMINATION: MRI AB DOMEN WO W CON HISTORY: Cyst of kidney COMPARISON: Ultrasound right upper quadrant 05/15/2022, CT abdomen pelvis 06/18/2020, CT abdomen pelvis 04/16/2016 TECHNIQUE: A comprehensive MRI examination of the abdomen was performed to optimize visualization of suspected pathology. Images were obtained both before and after intravenous administration of ml Dotarem contrast. FINDINGS: LIVER: No enlargement, atrophy, abnormal density, or significant focal lesion. BILIARY: No visible dilatation or calcification. PANCREAS: No lesion, fluid collection, ductal dilatation, or atrophy. SPLEEN: No enlargement or focal lesion. KIDNEYS: 3.0 x 2.6 x 2.3 cm fluid-filled cyst with several internal septations within the anterior superior pole of right kidney. Completely benign-appearing simple cyst within posterior mid body of right kidney, 3.0 x 3.0 x 2.3 cm. ADRENALS: No mass or enlargement. AORTA/VASCULAR: No aneurysm or dissection. RETROPERITONEUM: No mass or adenopathy. BOWEL/MESENTERY: No visible mass, obstruction, or bowel wall thickening. ABDOMINAL WALL: No mass or hernia. BONES: No bony lesion or fracture. OTHER: Negative. IMPRESSION: 1. Benign-appearing right renal cysts present and not significantly changed since 04/16/2016. The superior pole cyst is complex with several internal septations, but given its long-term stable size is consistent with benign etiology. Electronically authenticated by: CHAY MENDOZA Date: 2022-05-31 09:57 Normal [facility] INSULINon 05-30-2022 Insulin 23.8 uIU/mL Normal 2.6-24.9 [facility] Comment on above: Performed By: #### I NSULIN #### [facility] [address] [place] [address] Dr. Alejandra Crystal CBC AUTO DIFFon 05-29-2022 BASO # 0.0 103/ul Normal 0.0-0.1 [facility] Comment on above: Performed By: #### C BC #### [facility] [address] [place] [address] Dr. Alejandra Crystal Basophils/100 WBC (Bld) 0.6 % Normal 0.2-2.0 [facility] Comment on above: Performed By: #### C BC #### [facility] [address] [place] [address] Dr. Alejandra Crystal EO # 0.1 103/ul Normal 0.0-0.7 [facility] Comment on above: Performed By: #### C BC #### [facility] [address] [place] [address] Dr. Alejandra Crystal Eosinophils/100 WBC (Bld) 1.3 % Normal 0.9-7.0 [facility] Comment on above: Performed By: #### C BC #### [facility] [address] [place] [address] Dr. Alejandra Crystal Erythrocyte distribution width (RBC) [Ratio] 12.5 % Normal 11.0-15.0 [facility] Comment on above: Performed By: #### C BC #### [facility] [address] [place] [address] Dr. Alejandra Crystal Hematocrit (Bld) [Volume fraction] 41.2 % Normal 36.0-48.0 [facility] Comment on above: Performed By: #### C BC #### [facility] [address] [place] [address] Dr. Alejandra Crystal Hemoglobin (Bld) [Mass/Vol] 14.4 g/dL Normal 12.0-16.0 [facility] Comment on above: Performed By: #### C BC #### [facility] [address] [place] [address] Dr. Alejandra Crystal IG # 0.02 10e3/ul Normal 0.00-0.03 [facility] Comment on above: Performed By: #### C BC #### [facility] [address] [place] [address] Dr. Alejandra Crystal IG % 0.3 % Normal 0.0-0.5 [facility] Comment on above: Performed By: #### C BC #### [facility] [address] [place] [address] Dr. Alejandra Crystal LYMPH # 2.1 103/ul Normal 1.2-3.8 [facility] Comment on above: Performed By: #### C BC #### [facility] [address] [place] [address] Dr. Alejandra Crystal Lymphocytes/100 WBC (Bld) 32.5 % Normal 20.5-60.0 [facility] Comment on above: Performed By: #### C BC #### [facility] [address] [place] [address] Dr. Alejandra Crystal MANUAL DIFF REQ NO Normal [facility] Comment on above: Performed By: #### C BC #### [facility] [address] [place] [address] Dr. Alejandra Crystal MCH (RBC) [Entitic mass] 32.1 pg Normal 26.7-34.0 [facility] Comment on above: Performed By: #### C BC #### [facility] [address] [place] [address] Dr. Alejandra Crystal MCHC (RBC) [Mass/Vol] 35.0 g/dL Normal 29.9-35.2 [facility] Comment on above: Performed By: #### C BC #### [facility] [address] [place] [address] Dr. Alejandra Crystal MCV (RBC) [Entitic vol] 91.8 fL Normal 81.0-99.0 [facility] Comment on above: Performed By: #### C BC #### [facility] [address] [place] [address] Dr. Alejandra Crystal MONO # 0.6 103/ul Normal 0.3-0.8 [facility] Comment on above: Performed By: #### C BC #### [facility] [address] [address] [address] Alejandra Crystal Monocytes/100 WBC (Bld) 8.6 % Normal 1.7-12.0 [facility] Comment on above: Performed By: #### C BC #### [facility] [address] [place] [address] Dr. Alejandra Crystal NEUT # 3.6 103/ul Normal 1.4-6.5 [facility] Comment on above: Performed By: #### C BC #### [facility] [address] [place] [address] Dr. Alejandra Crystal Neutrophils/100 WBC (Bld) 56.7 % Normal 43.0-75.0 [facility] Comment on above: Performed By: #### C BC #### [facility] [address] [place] [address] Dr. Alejandra Crystal Platelet mean volume (Bld) [Entitic vol] 9.4 fL Critically low 9.5-13.5 [facility] Comment on above: Performed By: #### C BC #### [facility] [address] [place] [address] Dr. Alejandra Crystal PLT 294 103/ul Normal 150-450 [facility] Comment on above: Performed By: #### C BC #### [facility] [address] [place] [address] Dr. Alejandra Crystal RBC 4.49 106/ul Normal 4.20-5.40 [facility] Comment on above: Performed By: #### C BC #### [facility] [address] [place] [address] Dr. Alejandra Crystal WBC 6.4 103/ul Normal 4.0-11.0 [facility] Comment on above: Performed By: #### C BC #### [facility] [address] [address] [address] Alejandra Crystal FREE THYROXINE INDEX T7on FTI 1.78 Normal 1.30-4.50 [facility] Comment on above: Performed By: #### L IPID, URIC, CMP, T7, TSH #### [facility] [address] [place] [address] Dr. Alejandra Crystal T3U 33.0 % Normal 30.0-39.0 [facility] Comment on above: Performed By: #### L IPID, URIC, CMP, T7, TSH #### [facility] [address] [place] [address] Dr. Alejandra Crystal T4 [Mass/Vol] 5.40 ug/dL Normal 4.80-13.90 [facility] Comment on above: Performed By: #### L IPID, URIC, CMP, T7, TSH #### [facility] [address] [place] [address] Dr. Alejandra Crystal GLYCOHEMOGLOBIN A1Con 2021 ADA RECOMMENDATION SEE BELOW Normal [facility] Comment on above: Result Comment: ADA RECOMMENDED LIMIT 4.0 - 6.0 ADA THERAPEUTIC TARGET < 7.0 ACTION SUGGESTED > 7.0 Performed By: #### O BSCRN #### [facility] [address] [place] [address] Dr. Alejandra Crystal Glucose [Mass/Vol] 94 mg/dL Normal [facility] Comment on above: Performed By: #### O BSCRN #### [facility] [address] [place] [address] Dr. Alejandra Crystal HbA1c (Bld) [Mass fraction] 4.9 % Normal 4.5-6.2 [facility] Comment on above: Performed By: #### O BSCRN #### [facility] [address] [place] [address] Dr. Alejandra Crystal IRONon 05-29-2022 Iron [Mass/Vol] 74.0 ug/dL Normal 50.0-170.0 [facility] Comment on above: Performed By: #### I NFLUAB #### [facility] [address] [address] [address] Alejandra Crystal LIPID PROFILEon 05-29-2022 CHOL-HDL RATIO NORM SEE BELOW Normal [facility] Comment on above: Result Comment: 3.3 - 4.4 LOW RISK 4.4 - 7.1 AVERAGE RISK 7.1 - 11.0 MODERATE RISK >11.0 HIGH RISK Performed By: #### L IPID, URIC, CMP, T7, TSH #### [facility] [address] [address] [address] Alejandra Crystal Cholesterol [Mass/Vol] 127 mg/dL Normal <=200 [facility] Comment on above: Performed By: #### L IPID, URIC, CMP, T7, TSH #### [facility] [address] [address] [address] Alejandra Crystal Cholesterol in HDL [Mass/Vol] 33 mg/dL Critically low 40-60 [facility] Comment on above: Performed By: #### L IPID, URIC, CMP, T7, TSH #### [facility] [address] [address] [address] Alejandra Crystal Cholesterol in LDL [Mass/Vol] 60.4 mg/dL Normal [facility] Comment on above: Performed By: #### L IPID, URIC, CMP, T7, TSH #### [facility] [address] [address] [address] Alejandra Crystal Cholesterol.total/Cho lesterol in HDL [Mass ratio] 3.8 {ratio} Normal [facility] Comment on above: Performed By: #### L IPID, URIC, CMP, T7, TSH #### [facility] [address] [address] [address] Alejandra Crystal HDL NORMAL > or = 60 mg/dl - LO W CARDIOVASCULAR RISK <40 mg/dl - HIGH CARDIOVASCULAR RISK Normal [facility] Comment on above: Performed By: #### L IPID, URIC, CMP, T7, TSH #### [facility] [address] [address] [address] Alejandra Crystal LDL CALC NORMAL SEE BELOW Normal [facility] Comment on above: Result Comment: <100 mg/dl OPTIMAL 100 - 129 mg/dl NEAR OR ABOVE OPTIMAL 130 - 159 mg/dl BORDERLINE HIGH 160 - 189 mg/dl HIGH >190 mg/dl VERY HIGH Performed By: #### L IPID, URIC, CMP, T7, TSH #### [facility] [address] [place] [address] Dr. Alejandra Crystal Triglyceride [Mass/Vol] 168 mg/dL Critically high <=150 [facility] Comment on above: Performed By: #### L IPID, URIC, CMP, T7, TSH #### [facility] [address] [address] [address] Alejandra Crystal VLDL CALC 33.6 mg/dL Normal [facility] Comment on above: Performed By: #### L IPID, URIC, CMP, T7, TSH #### [facility] [address] [place] [address] Dr. Alejandra Crystal PROF 14(COMP METB)on 022 Albumin [Mass/Vol] 3.8 g/dL Normal 3.4-5.0 [facility] Comment on above: Performed By: #### L IPID, URIC, CMP, T7, TSH #### [facility] [address] [place] [address] Dr. Alejandra Crystal Albumin/Globulin [Mass ratio] 1.2 {ratio} Normal [facility] Comment on above: Performed By: #### L IPID, URIC, CMP, T7, TSH #### [facility] [address] [place] [address] Dr. Alejandra Crysatl ALP [Catalytic activity/Vol] 111 U/L Normal 46-116 [facility] Comment on above: Performed By: #### L IPID, URIC, CMP, T7, TSH #### [facility] [address] [place] [address] Dr. Alejandra Crystal ALT [Catalytic activity/Vol] 18 U/L Normal 14-59 [facility] Comment on above: Performed By: #### L IPID, URIC, CMP, T7, TSH #### [facility] [address] [place] [address] Dr. Alejandra Crystal Anion gap [Moles/Vol] 14.9 mmol/L Normal [facility] Comment on above: Performed By: #### L IPID, URIC, CMP, T7, TSH #### [facility] [address] [address] [address] Alejandra Crystal AST [Catalytic activity/Vol] 11 U/L Critically low 15-37 [facility] Comment on above: Performed By: #### L IPID, URIC, CMP, T7, TSH #### [facility] [address] [address] [address] Alejandra Crystal Bilirubin [Mass/Vol] 0.3 mg/dL Normal 0.2-1.0 [facility] Comment on above: Performed By: #### L IPID, URIC, CMP, T7, TSH #### [facility] [address] [address] [address] Alejandra Crystal Calcium [Mass/Vol] 8.9 mg/dL Normal 8.5-10.1 [facility] Comment on above: Performed By: #### L IPID, URIC, CMP, T7, TSH #### [facility] [address] [address] [address] Alejandra Crystal Chloride [Moles/Vol] 107 mmol/L Normal 98-107 [facility] Comment on above: Performed By: #### L IPID, URIC, CMP, T7, TSH #### [facility] [address] [address] [address] Alejandra Crystal CO2 [Moles/Vol] 22.3 mmol/L Normal 21.0-32.0 [facility] Comment on above: Performed By: #### L IPID, URIC, CMP, T7, TSH #### [facility] [address] [address] [address] Alejandra Crystal Creatinine [Mass/Vol] 0.82 mg/dL Normal 0.55-1.02 [facility] Comment on above: Performed By: #### L IPID, URIC, CMP, T7, TSH #### [facility] [address] [address] [address] Alejandra Crystal EGFR-AF TAIWANESE >60 Normal >=60 [facility] Comment on above: Performed By: #### L IPID, URIC, CMP, T7, TSH #### [facility] [address] [place] [address] Dr. Alejandra Crystal EGFR-NON AF TAIWANESE >60 Normal >=60 [facility] Comment on above: Performed By: #### L IPID, URIC, CMP, T7, TSH #### [facility] [address] [place] [address] Dr. Alejandra Crystal Globulin (S) [Mass/Vol] 3.3 g/dL Normal [facility] Comment on above: Performed By: #### L IPID, URIC, CMP, T7, TSH #### [facility] [address] [place] [address] Dr. Alejandra Crystal Glucose [Mass/Vol] 91 mg/dL Normal 74-106 [facility] Comment on above: Performed By: #### L IPID, URIC, CMP, T7, TSH #### [facility] [address] [place] [address] Dr. Alejandra Crystal Potassium [Moles/Vol] 4.2 mmol/L Normal 3.5-5.1 [facility] Comment on above: Performed By: #### L IPID, URIC, CMP, T7, TSH #### [facility] [address] [place] [address] Dr. Alejandra Crystal Protein [Mass/Vol] 7.1 g/dL Normal 6.4-8.2 [facility] Comment on above: Performed By: #### L IPID, URIC, CMP, T7, TSH #### [facility] [address] [place] [address] Dr. Alejandra Crystal Sodium [Moles/Vol] 140 mmol/L Normal 136-145 [facility] Comment on above: Performed By: #### L IPID, URIC, CMP, T7, TSH #### [facility] [address] [place] [address] Dr. Alejandra Crystal Urea nitrogen [Mass/Vol] 14.0 mg/dL Normal 7.0-18.0 [facility] Comment on above: Performed By: #### L IPID, URIC, CMP, T7, TSH #### [facility] [address] [address] [address] Alejandra Crystal Urea nitrogen/Creatinine [Mass ratio] 17.1 mg/mg Normal [facility] Comment on above: Performed By: #### L IPID, URIC, CMP, T7, TSH #### [facility] [address] [address] [address] Alejandra Crystal TSHon 05-29-2022 TSH 0.767 uIU/mL Normal 0.358-3.740 [facility] Comment on above: Performed By: #### L IPID, URIC, CMP, T7, TSH #### [facility] [address] [address] [address] Alejandra Crystal URIC ACID SERUMon 05-29-2022 Urate [Mass/Vol] 3.4 mg/dL Normal 2.6-6.0 [facility] Comment on above: Performed By: #### L IPID, URIC, CMP, T7, TSH #### [facility] [address] [address] [address] Alejandra Crystal VITAMIN D 25 OHon 05-29-2022 VIT D 25-OH 16.2 ng/mL Normal [facility] Comment on above: Performed By: #### I NFLUAB #### [facility] [address] [place] [address] Dr. Alejandra Crystal VIT D RANGES SEE BELOW Normal [facility] Comment on above: Result Comment: <20 ng/mL Vit D deficient 20 - <30 ng/mL Vit D insufficient 30 - 100 ng/mL Vit D sufficient >100 ng/mL Potential Toxicity Performed By: #### I NFLUAB #### [facility] [address] [place] [address] Dr. Alejandra Crystal MRI BRAIN WO W CONon 022 MRI BRAIN WO W CON EXAMINATION: MRI BRA IN WO W CON HISTORY: Imaging result abnormal [left parietal bone lesion. COMPARISON: 03/05/2022. TECHNIQUE: Multiplanar, multisequence MRI images of the brain were obtained without and with contrast. FINDINGS: Redemonstration of a T1 hyperintense lesion in the left parietal calvarium, measuring up to 2.7 cm in AP, 0.7 cm in transverse, and 1.5 cm in the craniocaudal dimension. This is stable. This involves a pathologic space and the inner table. The lesion demonstrates increased T2 signal, with possible mild enhancement. No adjacent enhancing soft tissue dural component or overlying soft tissue component. No mass effect. Ventricles and sulci normal in size. No hydrocephalus. Few tiny T2 hyperintense foci in the supratentorial white matter. No restricted diffusion. There is no midline shift, mass effect, or abnormal extraaxial fluid collections. Pituitary gland is not abnormally enlarged. There is no evidence for a Chiari I malformation. The orbital apices are clear. The flow voids of the [place] are visualized, implying that the vessels are patent. IMPRESSION: 1. Stable T1 hyperintense lesion within the left parietal calvarium. No associated soft tissue dural mass lesions or mass effect of the brain. The appearance is favored to represent a benign osseous hemangioma. Precautionary follow-up MRI of the brain in 6-12 months can be obtained for further evaluation as indicated. 2. No acute infarct or acute process in the brain. Minimal chronic microvascular ischemia in the supratentorial white matter. Electronically authenticated by: TEZ CUBA Date: 2022-05-17 23:20 Normal [facility] US SINGLE QUAD RT UPPERon US SINGLE QUAD RT UPPER ULTRASOUND RIGHT UPPER QUADRANT HISTORY: Abdominal pain. COMPARISON: Ultrasound renal 12/27/2020. FINDINGS: The liver appears unremarkable. There is no evidence for mass or intrahepatic biliary ductal dilatation. The gallbladder has been removed. The common bile duct measures 3.5 mm. Negative Gannon's sign. The visualized portions of the pancreas appear unremarkable. The right kidney measures 13.6 cm. There is no right renal hydronephrosis. There is a right renal cyst which appears more complex than on the prior exam measuring 24 x 29 x 24 mm. There is a right renal lower pole 32 x 32 x 29 mm simple cyst. IMPRESSION: Right renal cyst which now appears more complex. Recommend follow-up ultrasound renal in 3 months. Right renal simple cyst. Electronically authenticated by: LETY TAN Date: 2022-05-15 14:53 Normal [facility] COAGULATIONOrdered By: Nacho Mcguire on 04-23-2022 aPTT Coag (PPP) [Time] 35.0 s Normal 25.1 - 36.5 second(s) [facility] Auto Coag INR Coag (PPP) [Relative time] 1.0 {INR} Invalid Interpretation Code [facility] Auto Coag PT Coag (PPP) [Time] 11.7 s Normal 9.4 - 1 2.5 second(s) [facility] Auto Coag HEMATOLOGYOrdered By: SYSTEM SYSTEM on 04-23-2022 Basophils/100 WBC (Bld) 0.4 % Normal 0.0 - 2.0 % [facility] HemeAutoSS Basophils/Leukocytes Auto (Bld) [Pure # fraction] 0.0 E9/L Normal 0.0 - 0.2 E9/L [facility] Eosinophils/100 WBC (Bld) 2.2 % Normal 0.0 - 8.0 % [facility] Eosinophils/Leukocyte s Auto (Bld) [Pure # fraction] 0.1 E9/L Normal 0.0 - 0.5 E9/L [facility] Lymphocytes/100 WBC (Bld) 32.9 % Normal 14.0 - 50.0 % [facility] Lymphocytes/Leukocyte s Auto (Bld) [Pure # fraction] 2.2 E9/L Normal 1.0 - 4.0 E9/L [facility] Monocytes/100 WBC (Bld) 6.5 % Normal 4.0 - 14.0 % [facility]SS Monocytes/Leukocytes Auto (Bld) [Pure # fraction] 0.4 E9/L Normal 0.2 - 1.0 E9/L [facility] Neutrophils/100 WBC (Bld) 58.0 % Normal 36.0 - 75.0 % [facility] Neutrophils/Leukocyte s Auto (Bld) [Pure # fraction] 3.9 E9/L Normal 2.0 - 7.5 E9/L [facility] HEMATOLOGYOrdered By: Meme Marshall on 04-23-2022 Erythrocyte distribution width (RBC) [Ratio] 13.0 % Normal 10.9 - 14.2 % [facility] Hematocrit (Bld) [Volume fraction] 40.4 % Normal 34.0 - 46.0 % [facility] Hemoglobin (Bld) [Mass/Vol] 13.7 g/dL Normal 12.0 - 16.0 gm/dL [facility] MCH (RBC) [Entitic mass] 31.4 pg Normal 27.0 - 34.0 pg [facility] MCHC (RBC) [Mass/Vol] 33.9 g/dL Normal 31.4 - 36.0 gm/dL [facility] MCV (RBC) [Entitic vol] 92.5 fL Normal 80.0 - 100.0 fL [facility] Platelet mean volume (Bld) [Entitic vol] 8.1 fL Normal 6.4 - 10.8 fL [facility] Platelets (Bld) [#/Vol] 302.0 E9/L Normal 150.0 - 500.0 E9/L [facility] RBC (Bld) [#/Vol] 4.4 E12/L Normal 4.3 - 5.9 E12/L [facility] WBC corrected for nucl RBC Auto (Bld) [#/Vol] 6.7 E9/L Normal 4.0 - 11.0 E9/L [facility] MICRO OTHER TESTSOrdered By: Nacho Mcguire on 04-23-2022 S. pyogenes Ag IA.rapid Ql (Throat) Negative (04/23/22 5:25 PM) Normal Negative [facility] Man Sero Influenzae A Ag Negative (04/23/22 5:22 PM) Normal Negative [facility] Man Sero Influenzae B Ag Negative (04/23/22 5:22 PM) Normal Negative [facility] Sero CHEMISTRYOrdered By: SYSTEM SYSTEM on 04-11-2022 Anion gap [Moles/Vol] 9 mmol/L Normal 6 - 16 mEq/L [facility] Remisol Calcium [Mass/Vol] 8.5 mg/dL Low 8.9 - 11. 1 mg/dL [facility] Remisol Chloride [Moles/Vol] 110 mmol/L Normal 101 - 1 11 mmol/L [facility] Remisol CO2 [Moles/Vol] 20 mmol/L Low 21 - 31 mmol/L [facility] Remisol Creatinine [Mass/Vol] 0.9 mg/dL Normal 0.5 - 1.3 mg/dL [facility] Remisol GFR/1.73 sq M.predicted among blacks MDRD (S/P/Bld) [Vol rate/Area] mL/min/1.73 m2 Normal >=59mL/min/ 1.73 m2 [facility] Chem S GFR/1.73 sq M.predicted among non-blacks MDRD (S/P/Bld) [Vol rate/Area] mL/min/1.73 m2 Normal >=59mL/min/ 1.73 m2 [facility] Chem S Glucose [Mass/Vol] 102 mg/dL Normal 55 - 199 mg/dL [facility] Remisol Potassium [Moles/Vol] 3.6 mmol/L Normal 3.5 - 5.3 mmol/L [facility] Remisol Sodium [Moles/Vol] 135 mmol/L Normal 135 - 145 mmol/L [facility] Remisol Urea nitrogen [Mass/Vol] 12 mg/dL Normal 5 - 21 mg/dL [facility] Remisol Urea nitrogen/Creatinine [Mass ratio] 13 mg/mg Normal 10 - 20 [facility] Remisol CHEMISTRYOrdered By: Lab ROP User on 04-11-2022 Glucose [Mass/Vol] 123 mg/dL High 55 - 99 mg/dL [facility] POC Subsection Comment on above: Result Comment: Madelaine toro RN/ POC Device SN [id number] Invalid Interpretation Code [facility] POC Subsection POC User ID [id number] Invalid Interpretation Code [facility] POC Subsection POC Username CHELE MENDOZA Invalid Interpretation Code [facility] POC Subsection HEMATOLOGYOrdered By: SYSTEM SYSTEM on 04-11-2022 Basophils/100 WBC (Bld) 0.8 % Normal 0.0 - 2.0 % [facility] Basophils/Leukocytes Auto (Bld) [Pure # fraction] 0.1 E9/L Normal 0.0 - 0.2 E9/L [facility] Eosinophils/100 WBC (Bld) 1.7 % Normal 0.0 - 8.0 % [facility] Eosinophils/Leukocyte s Auto (Bld) [Pure # fraction] 0.1 E9/L Normal 0.0 - 0.5 E9/L [facility] Lymphocytes/100 WBC (Bld) 21.3 % Normal 14.0 - 50.0 % [facility] Lymphocytes/Leukocyte s Auto (Bld) [Pure # fraction] 1.7 E9/L Normal 1.0 - 4.0 E9/L [facility] Monocytes/100 WBC (Bld) 7.4 % Normal 4.0 - 14.0 % [facility] Monocytes/Leukocytes Auto (Bld) [Pure # fraction] 0.6 E9/L Normal 0.2 - 1.0 E9/L [facility] Neutrophils/100 WBC (Bld) 68.8 % Normal 36.0 - 75.0 % [facility] Neutrophils/Leukocyte s Auto (Bld) [Pure # fraction] 5.6 E9/L Normal 2.0 - 7.5 E9/L [facility] HEMATOLOGYOrdered By: Esteban Liu on 04-11-2022 Erythrocyte distribution width (RBC) [Ratio] 12.7 % Normal 10.9 - 14.2 % [facility] Hematocrit (Bld) [Volume fraction] 39.6 % Normal 34.0 - 46.0 % [facility] Hemoglobin (Bld) [Mass/Vol] 13.7 g/dL Normal 12.0 - 16.0 gm/dL [facility] MCH (RBC) [Entitic mass] 31.3 pg Normal 27.0 - 34.0 pg [facility] MCHC (RBC) [Mass/Vol] 34.7 g/dL Normal 31.4 - 36.0 gm/dL [facility] MCV (RBC) [Entitic vol] 90.3 fL Normal 80.0 - 100.0 fL [facility] Platelet mean volume (Bld) [Entitic vol] 7.6 fL Normal 6.4 - 10.8 fL [facility] Platelets (Bld) [#/Vol] 260.0 E9/L Normal 150.0 - 500.0 E9/L [facility] RBC (Bld) [#/Vol] 4.4 E12/L Normal 4.3 - 5.9 E12/L [facility] WBC corrected for nucl RBC Auto (Bld) [#/Vol] 8.1 E9/L Normal 4.0 - 11.0 E9/L [facility] Hem[facility] CT HEAD WO W CONon 2 CT HEAD WO W CON Begin Addendum # 1 The left cerebellar tonsil lies below the foramen magnum, the exact level cannot be determined as this extends off the image [id number]. IMPRESSION: Low lying left cerebellar tonsil Original Report \EXAMINATION: CT HEAD WO W CON HISTORY: Migraine COMPARISON: No relevant comparison available. TECHNIQUE: Axial images were obtained without and with IV contrast. Dose reduction techniques were achieved by using automated exposure control and/or adjustment of mA and/or kV according to patient size and/or use of iterative reconstruction technique. FINDINGS: BRAIN: No edema, hemorrhage, mass, acute infarction, or inappropriate atrophy. CSF SPACES: No hydrocephalus, subarachnoid hemorrhage, or mass. Appropriate for age. SKULL: No fracture, mass, or other significant visible lesion. SINUSES: No significant mucosal thickening or fluid on the limited views. ORBITS: No appreciable abnormality on the limited views. OTHER: No abnormal postcontrast enhancement Limited exam with poor [id number] ratio, this is particularly on the postcontrast images IMPRESSION: Limited exam, no acute abnormality observed Normal [facility] CBC AUTO DIFFon 03-29-2022 BASO # 0.0 103/ul Normal 0.0-0.1 [facility] Comment on above: Performed By: #### C BC #### [facility] [address] [place] [address] Dr. Alejanrda Crystal Basophils/100 WBC (Bld) 0.4 % Normal 0.2-2.0 [facility] Comment on above: Performed By: #### C BC #### [facility] [address] [place] [address] Dr. Alejandra Crystal EO # 0.0 103/ul Normal 0.0-0.7 [facility] Comment on above: Performed By: #### C BC #### [facility] [address] [place] [address] Dr. Alejandra Crystal Eosinophils/100 WBC (Bld) 0.6 % Critically low 0.9-7.0 [facility] Comment on above: Performed By: #### C BC #### [facility] [address] [place] [address] Dr. Alejandra Crystal Erythrocyte distribution width (RBC) [Ratio] 13.0 % Normal 11.0-15.0 [facility] Comment on above: Performed By: #### C BC #### [facility] [address] [place] [address] Dr. Alejandra Crystal Hematocrit (Bld) [Volume fraction] 42.0 % Normal 36.0-48.0 [facility] Comment on above: Performed By: #### C BC #### [facility] [address] [place] [address] Dr. Alejandra Crystal Hemoglobin (Bld) [Mass/Vol] 14.3 g/dL Normal 12.0-16.0 [facility] Comment on above: Performed By: #### C BC #### [facility] [address] [place] [address] Dr. Alejandra Crystal IG # 0.04 10e3/ul Critically high 0.00-0.03 [facility] Comment on above: Performed By: #### C BC #### [facility] [address] [place] [address] Dr. Alejandra Crystal IG % 0.6 % Critically high 0.0-0.5 [facility] Comment on above: Performed By: #### C BC #### [facility] [address] [place] [address] Dr. Alejandra Crystal LYMPH # 2.5 103/ul Normal 1.2-3.8 [facility] Comment on above: Performed By: #### C BC #### [facility] [address] [place] [address] Dr. Alejandra Crystal Lymphocytes/100 WBC (Bld) 34.9 % Normal 20.5-60.0 [facility] Comment on above: Performed By: #### C BC #### [facility] [address] [place] [address] Dr. Alejandra Crystal MANUAL DIFF REQ NO Normal [facility] Comment on above: Performed By: #### C BC #### [facility] [address] [place] [address] Dr. Alejandra Crystal MCH (RBC) [Entitic mass] 31.4 pg Normal 26.7-34.0 [facility] Comment on above: Performed By: #### C BC #### [facility] [address] [place] [address] Dr. Alejandra Crystal MCHC (RBC) [Mass/Vol] 34.0 g/dL Normal 29.9-35.2 [facility] Comment on above: Performed By: #### C BC #### [facility] [address] [place] [address] Dr. Alejandra Crystal MCV (RBC) [Entitic vol] 92.1 fL Normal 81.0-99.0 [facility] Comment on above: Performed By: #### C BC #### [facility] [address] [place] [address] Dr. Alejandra Crystal MONO # 0.6 103/ul Normal 0.3-0.8 [facility] Comment on above: Performed By: #### C BC #### [facility] [address] [place] [address] Dr. Alejandra Crystal Monocytes/100 WBC (Bld) 8.7 % Normal 1.7-12.0 [facility] Comment on above: Performed By: #### C BC #### [facility] [address] [place] [address] Dr. Alejandra Crystal NEUT # 4.0 103/ul Normal 1.4-6.5 [facility] Comment on above: Performed By: #### C BC #### [facility] [address] [place] [address] Dr. Alejandra Crystal Neutrophils/100 WBC (Bld) 54.8 % Normal 43.0-75.0 [facility] Comment on above: Performed By: #### C BC #### [facility] [address] [place] [address] Dr. Alejandra Crystal Platelet mean volume (Bld) [Entitic vol] 9.8 fL Normal 9.5-13.5 [facility] Comment on above: Performed By: #### C BC #### [facility] [address] [place] [address] Dr. Alejandra Crystal PLT 274 103/ul Normal 150-450 [facility] Comment on above: Performed By: #### C BC #### [facility] [address] [place] [address] Dr. Alejandra Crystal RBC 4.56 106/ul Normal 4.20-5.40 [facility] Comment on above: Performed By: #### C BC #### [facility] [address] [address] [address] Alejandra Crystal WBC 7.2 103/ul Normal 4.0-11.0 [facility] Comment on above: Performed By: #### C BC #### [facility] [address] [place] [address] Dr. Alejandra Crystal ER URINE PROFILEon 2 Bilirubin Ql (U) Negative Normal NEGATIVE [facility] Comment on above: Performed By: #### O BSCRN #### [facility] [address] [place] [address] Dr. Alejandra Crystal Clarity (U) CLEAR Normal CLEAR [facility] Comment on above: Performed By: #### O BSCRN #### [facility] [address] [place] [address] Dr. Alejandra Crystal Color (U) YELLOW Normal YELLOW [facility] Comment on above: Performed By: #### O BSCRN #### [facility] [address] [place] [address] Dr. Alejandra Crystal ERUAHD A micrscopic examina tion will be performed if indicated. Normal [facility] Comment on above: Performed By: #### O BSCRN #### [facility] [address] [place] [address] Dr. Alejandra Crystal Glucose Ql (U) Negative Normal NEGATIVE [facility] Comment on above: Performed By: #### O BSCRN #### [facility] [address] [place] [address] Dr. Alejandra Crystal Hemoglobin Ql (U) Negative Normal NEGATIVE [facility] Comment on above: Performed By: #### O BSCRN #### [facility] [address] [place] [address] Dr. Alejandra Crystal Ketones Ql (U) Negative Normal NEGATIVE [facility] Comment on above: Performed By: #### O BSCRN #### [facility] [address] [place] [address] Dr. Alejandra Crystal LEUKOCYTES Negative Normal NEGATIVE [facility] Comment on above: Performed By: #### O BSCRN #### [facility] [address] [place] [address] Dr. Alejandra Crystal Nitrite Ql (U) Negative Normal NEGATIVE [facility] Comment on above: Performed By: #### O BSCRN #### [facility] [address] [place] [address] Dr. Alejandra Crystal pH (U) 6.0 [pH] Normal 5-9 [facility] Comment on above: Performed By: #### O BSCRN #### [facility] [address] [place] [address] Dr. Alejandra Crystal SPEC GRAVITY >=1.030 Abnormal 1.005-<=1.0 25 [facility] Comment on above: Performed By: #### O BSCRN #### [facility] [address] [place] [address] Dr. Alejandra Crystal UA PROTEIN Negative Normal NEGATIVE/ TRACE [facility] Comment on above: Performed By: #### O BSCRN #### [facility] [address] [place] [address] Dr. Alejandra Crystal UR MICRO IND NOT INDICATED Normal [facility] Comment on above: Performed By: #### O BSCRN #### [facility] [address] [place] [address] Dr. Alejandra Crystal Urobilinogen Qn (U) 0.2 {Ernst'U}/dL Normal 0.2 - 1. 0 [facility] Comment on above: Performed By: #### O BSCRN #### [facility] [address] [place] [address] Dr. Alejandra Crystal MAGNESIUMon 03-29-2022 Magnesium [Mass/Vol] 2.1 mg/dL Normal 1.8-2.4 [facility] Comment on above: Performed By: #### I NFLUAB #### [facility] [address] [place] [address] Dr. Alejandra Crystal PREG HCG QUALon 03-29-2022 , QUAL Negative Normal NEGATIVE [facility] Comment on above: Performed By: #### I NSULIN #### [facility] [address] [address] [address] Alejandra Crystal PROF 14(COMP METB)on 022 Albumin [Mass/Vol] 3.7 g/dL Normal 3.4-5.0 [facility] Comment on above: Performed By: #### I NFLUAB #### [facility] [address] [address] [address] Alejandra Crystal Albumin/Globulin [Mass ratio] 1.2 {ratio} Normal [facility] Comment on above: Performed By: #### I NFLUAB #### [facility] [address] [address] [address] Alejandra Crystal ALP [Catalytic activity/Vol] 120 U/L Critically high 46-116 [facility] Comment on above: Performed By: #### I NFLUAB #### [facility] [address] [address] [address] Alejandra Crystal ALT [Catalytic activity/Vol] 23 U/L Normal 14-59 [facility] Comment on above: Performed By: #### I NFLUAB #### [facility] [address] [address] [address] Alejandra Crystal Anion gap [Moles/Vol] 12.6 mmol/L Normal [facility] Comment on above: Performed By: #### I NFLUAB #### [facility] [address] [address] [address] Alejandra Crystal AST [Catalytic activity/Vol] 14 U/L Critically low 15-37 [facility] Comment on above: Performed By: #### I NFLUAB #### [facility] [address] [address] [address] Alejandra Crystal Bilirubin [Mass/Vol] 0.4 mg/dL Normal 0.2-1.0 [facility] Comment on above: Performed By: #### I NFLUAB #### [facility] [address] [address] [address] Alejandra Crystal Calcium [Mass/Vol] 9.0 mg/dL Normal 8.5-10.1 [facility] Comment on above: Performed By: #### I NFLUAB #### [facility] [address] [address] [address] Alejandra Crystal Chloride [Moles/Vol] 109 mmol/L Critically high 98-107 [facility] Comment on above: Performed By: #### I NFLUAB #### [facility] [address] [address] [address] Alejandra Crystal CO2 [Moles/Vol] 21.2 mmol/L Normal 21.0-32.0 [facility] Comment on above: Performed By: #### I NFLUAB #### [facility] [address] [address] [address] Alejandra Crystal Creatinine [Mass/Vol] 0.93 mg/dL Normal 0.55-1.02 [facility] Comment on above: Performed By: #### I NFLUAB #### [facility] [address] [address] [address] Alejandra Crystal EGFR-AF TAIWANESE Normal >=60 [facility] Comment on above: Performed By: #### I NFLUAB #### [facility] [address] [address] [address] Alejandra Crystal EGFR-NON AF TAIWANESE Normal >=60 [facility] Comment on above: Performed By: #### I NFLUAB #### [facility] [address] [address] [address] Alejandra Crystal Globulin (S) [Mass/Vol] 3.2 g/dL Normal [facility] Comment on above: Performed By: #### I NFLUAB #### [facility] [address] [address] [address] Alejandra Crystal Glucose [Mass/Vol] 100 mg/dL Normal 74-106 [facility] Comment on above: Performed By: #### I NFLUAB #### [facility] [address] [address] [address] Alejandra Crystal Potassium [Moles/Vol] 2.8 mmol/L Critically low 3.5-5.1 [facility] Comment on above: Performed By: #### I NFLUAB #### [facility] [address] [address] [address] Alejandra Crystal Protein [Mass/Vol] 6.9 g/dL Normal 6.4-8.2 [facility] Comment on above: Performed By: #### I NFLUAB #### [facility] [address] [address] [address] Alejandra Crystal Sodium [Moles/Vol] 140 mmol/L Normal 136-145 [facility] Comment on above: Performed By: #### I NFLUAB #### [facility] [address] [address] [address] Alejandra Crystal Urea nitrogen [Mass/Vol] 16.0 mg/dL Normal 7.0-18.0 [facility] Comment on above: Performed By: #### I NFLUAB #### [facility] [address] [place] [address] Dr. Alejandra Crystal Urea nitrogen/Creatinine [Mass ratio] 17.2 mg/mg Normal [facility] Comment on above: Performed By: #### I NFLUAB #### [facility] [address] [place] [address] Dr. Alejandra Crystal TROPONIN, HIGH SENSITIVITYon 03-29-2022 HSTROP 5.2 pg/mL Normal 4.0-51.3 [facility] Comment on above: Result Comment: CUT- OFF POINTS HAVE BEEN ESTABLISHED BASED ON THE FOURTH UNIVERSAL DEFINITIONS OF MYOCARDIAL INFARCTION. THE UPPER REFERENCE LIMIT (URL) OF TROPONIN, DEFINED THE 99TH PERCENTILE OF cTnI DISTRIBUTION IN A REFERENCE POPULATION, HAS BEEN CONFIRMED THE DECISION THRESHOLD FOR DE DIAGNOSIS. Performed By: #### I NFLUAB #### [facility] [address] [place] [address] Dr. Alejandra Crystal Covid-19 PCR (CVDTB)on 03-08 SARS-CoV-2 (COVID-19) RNA JAYNE+probe Ql (Unsp spec) Not detected Normal NOT DETECTED [facility] Comment on above: Result Comment: This test is not yet approved or cleared by the [place] FDA. When there are no FDA-approved or cleared tests available, and other criteria are met, FDA can make tests available under an emergency access mechanism called an Emergency Use Authorization (EUA). The EUA for this test is supported by the Desk Manager of Health and Human Service's (HHS's) declaration that circumstances exist to justify the emergency use of in vitro diagnostics for the detection and/or diagnosis of the virus that causes COVID-19. This EUA will remain in effect (meaning this test can be used) for the duration of the COVID-19 declaration justifying emergency of IVDs, unless it is terminated or revoked by FDA (after which the test may no longer be used). When diagnostic testing is negative, the possibility of a false negative should be considered in the context of a patient's recent exposures and the presence of clinical signs and symptoms consistent with SARS-CoV-2. Performed By: #### L IPID, URIC, CMP, T7, TSH #### [facility] [address] [place] [address] Dr. Alejandra Crystal MRI BRAIN WO W CONon 03-06-2 022 MRI BRAIN WO W CON EXAMINATION: MRI BRA IN WO W CON HISTORY: Syncope and collapse COMPARISON: No relevant comparison available. TECHNIQUE: A variety of imaging planes and parameters were utilized for visualization of suspected pathology. Images were performed without and with Dotarem contrast. FINDINGS: CEREBRUM: No edema, hemorrhage, mass, acute infarction, or inappropriate atrophy. CEREBELLUM: No edema, hemorrhage, mass, acute infarction, or inappropriate atrophy. BRAINSTEM: No edema, hemorrhage, mass, acute infarction, or inappropriate atrophy. CSF SPACES: Ventricles, cisterns, and sulci are appropriate for age. No hydrocephalus, subarachnoid hemorrhage, or mass. SKULL: Within the superior aspect of the left parietal bone is a 2.7 x 1.6 x 0.7 cm area which demonstrates increased signal on T1, T2, and slightly greater T1 postcontrast sequences. Appears to be confined to the marrow cavity of the calvarium with no mass effect or contour irregularity of the inner or outer cortex. SINUSES: Limited views demonstrate no significant mucosal thickening or fluid. ORBITS: Limited views are unremarkable. OTHER: No abnormal meningeal or parenchymal enhancement. IMPRESSION: 1. Normal MRI appearance of the brain. 2. Nonspecific lesion within the left parietal bone which appears confined to the marrow cavity; hemangioma versus red-yellow marrow changes versus tumor. Consider CT of the head for additional evaluation of the calvarium, follow-up MRI of the brain in 3 months to document stability versus change. Electronically authenticated by: CHAY MENDOZA Date: 2022-03-06 07:26 Normal [facility] CHEMISTRYOrdered By: SYSTEM SYSTEM on 02-21-2022 T4 [Mass/Vol] 5.1 ug/dL Normal 4.6 - 9.1 mcg/dL [facility] Remisol TSH Qn 0.20 m[IU]/L Low 0.34 - 5.60 mcIU/mL [facility]06 SARS-CoV-2 (COVID-19) RNA JAYNE+probe Ql (Unsp spec) Not detected Normal NOT DETECTED [facility] Comment on above: Result Comment: When diagnostic testing is negative, the possibility of a false negative should be considered in the context of a patient's recent exposures and the presence of clinical signs and symptoms consistent with SARS-CoV-2. This test is not yet approved or cleared by the [place] FDA. When there are no FDA-approved or cleared tests available, and other criteria are met, FDA can make tests available under an emergency access mechanism called an Emergency Use Authorization (EUA). The EUA for this test is supported by the Desk Manager of Health and Human Service's declaration that circumstances exist to justify the emergency use of in vitro diagnostics for the detection and/or diagnosis of the virus that causes COVID-19. This EUA will remain in effect for the duration of the COVID-19 declaration justifying emergency of IVDs, unless it is terminated or revoked by the FDA (after which the test may no longer be used). Performed By: #### I NFLUAB #### [facility] [address] [place] [address] Dr. Alejandra Crystal CBC AUTO DIFFon 01-01-2022 BASO # 0.0 103/ul Normal 0.0-0.1 [facility] Comment on above: Performed By: #### O BSCRN #### [facility] [address] [address] [address] Alejandra Crystal Basophils/100 WBC (Bld) 0.7 % Normal 0.2-2.0 [facility] Comment on above: Performed By: #### O BSCRN #### [facility] [address] [place] [address] Dr. Alejandra Crystal EO # 0.1 103/ul Normal 0.0-0.7 [facility] Comment on above: Performed By: #### O BSCRN #### [facility] [address] [place] [address] Dr. Alejandra Crystal Eosinophils/100 WBC (Bld) 1.1 % Normal 0.9-7.0 [facility] Comment on above: Performed By: #### O BSCRN #### [facility] [address] [place] [address] Dr. Alejandra Crystal Erythrocyte distribution width (RBC) [Ratio] 13.1 % Normal 11.0-15.0 [facility] Comment on above: Performed By: #### O BSCRN #### [facility] [address] [place] [address] Dr. Alejandra Crystal Hematocrit (Bld) [Volume fraction] 43.4 % Normal 36.0-48.0 [facility] Comment on above: Performed By: #### O BSCRN #### [facility] [address] [place] [address] Dr. Alejandra Crystal Hemoglobin (Bld) [Mass/Vol] 14.5 g/dL Normal 12.0-16.0 [facility] Comment on above: Performed By: #### O BSCRN #### [facility] [address] [place] [address] Dr. Alejandra Crystal IG # 0.02 10e3/ul Normal 0.00-0.03 [facility] Comment on above: Performed By: #### O BSCRN #### [facility] [address] [place] [address] Dr. Alejandra Crystal IG % 0.4 % Normal 0.0-0.5 [facility] Comment on above: Performed By: #### O BSCRN #### [facility] [address] [place] [address] Dr. Alejandra Crystal LYMPH # 1.9 103/ul Normal 1.2-3.8 [facility] Comment on above: Performed By: #### O BSCRN #### [facility] [address] [place] [address] Dr. Alejandra Crystal Lymphocytes/100 WBC (Bld) 34.1 % Normal 20.5-60.0 [facility] Comment on above: Performed By: #### O BSCRN #### [facility] [address] [place] [address] Dr. Alejandra Crystal MANUAL DIFF REQ NO Normal [facility] Comment on above: Performed By: #### O BSCRN #### [facility] [address] [place] [address] Dr. Alejandra Crystal MCH (RBC) [Entitic mass] 30.9 pg Normal 26.7-34.0 [facility] Comment on above: Performed By: #### O BSCRN #### [facility] [address] [place] [address] Dr. Alejandra Crystal MCHC (RBC) [Mass/Vol] 33.4 g/dL Normal 29.9-35.2 [facility] Comment on above: Performed By: #### O BSCRN #### [facility] [address] [place] [address] Dr. Alejandra Crystal MCV (RBC) [Entitic vol] 92.5 fL Normal 81.0-99.0 [facility] Comment on above: Performed By: #### O BSCRN #### [facility] [address] [place] [address] Dr. Alejandra Crystal MONO # 0.4 103/ul Normal 0.3-0.8 [facility] Comment on above: Performed By: #### O BSCRN #### [facility] [address] [place] [address] Dr. Alejandra Crystal Monocytes/100 WBC (Bld) 7.7 % Normal 1.7-12.0 [facility] Comment on above: Performed By: #### O BSCRN #### [facility] [address] [place] [address] Dr. Alejandra Crystal NEUT # 3.0 103/ul Normal 1.4-6.5 [facility] Comment on above: Performed By: #### O BSCRN #### [facility] [address] [place] [address] Dr. Alejandra Crystal Neutrophils/100 WBC (Bld) 56.0 % Normal 43.0-75.0 [facility] Comment on above: Performed By: #### O BSCRN #### [facility] [address] [place] [address] Dr. Alejandra Crystal Platelet mean volume (Bld) [Entitic vol] 9.4 fL Critically low 9.5-13.5 [facility] Comment on above: Performed By: #### O BSCRN #### [facility] [address] [place] [address] Dr. Alejandra Crystal PLT 313 103/ul Normal 150-450 [facility] Comment on above: Performed By: #### O BSCRN #### [facility] [address] [place] [address] Dr. Alejandra Crystal RBC 4.69 106/ul Normal 4.20-5.40 [facility] Comment on above: Performed By: #### O BSCRN #### [facility] [address] [place] [address] Dr. Alejandra Crystal WBC 5.4 103/ul Normal 4.0-11.0 [facility] Comment on above: Performed By: #### O BSCRN #### [facility] [address] [place] [address] Dr. Alejandra Crystal FREE T3on 01-01-2022 FREE T3 4.72 pg/mlL Critically high 2.18-3.98 [facility] Comment on above: Performed By: #### L IPID, URIC, CMP, T7, TSH #### [facility] [address] [place] [address] Dr. Alejandra Crystal FREE THYROXINE INDEX T7on FTI 1.25 Critically low 1.30-4.50 [facility] Comment on above: Performed By: #### L IPID, URIC, CMP, T7, TSH #### [facility] [address] [place] [address] Dr. Alejandra Crystal T3U 32.0 % Normal 30.0-39.0 [facility] Comment on above: Performed By: #### L IPID, URIC, CMP, T7, TSH #### [facility] [address] [place] [address] Dr. Alejandra Crystal T4 [Mass/Vol] 3.90 ug/dL Critically low 4.80-13.90 [facility] Comment on above: Performed By: #### L IPID, URIC, CMP, T7, TSH #### [facility] [address] [place] [address] Dr. Alejandra Crystal PROF 14(COMP METB)on 022 Albumin [Mass/Vol] 3.8 g/dL Normal 3.4-5.0 [facility] Comment on above: Performed By: #### L IPID, URIC, CMP, T7, TSH #### [facility] [address] [place] [address] Dr. Alejandra Crystal Albumin/Globulin [Mass ratio] 11.4 {ratio} Normal [facility] Comment on above: Performed By: #### L IPID, URIC, CMP, T7, TSH #### [facility] [address] [place] [address] Dr. Alejandra Crystal ALP [Catalytic activity/Vol] 123 U/L Critically high 46-116 [facility] Comment on above: Performed By: #### L IPID, URIC, CMP, T7, TSH #### [facility] [address] [place] [address] Dr. Alejandra Crystal ALT [Catalytic activity/Vol] 27 U/L Normal 14-59 [facility] Comment on above: Performed By: #### L IPID, URIC, CMP, T7, TSH #### [facility] [address] [place] [address] Dr. Alejandra Crystal Anion gap [Moles/Vol] 11.5 mmol/L Normal [facility] Comment on above: Performed By: #### L IPID, URIC, CMP, T7, TSH #### [facility] [address] [place] [address] Dr. Alejandra Crystal AST [Catalytic activity/Vol] 16 U/L Normal 15-37 [facility] Comment on above: Performed By: #### L IPID, URIC, CMP, T7, TSH #### [facility] [address] [place] [address] Dr. Alejandra Crystal Bilirubin [Mass/Vol] 0.6 mg/dL Normal 0.2-1.0 [facility] Comment on above: Performed By: #### L IPID, URIC, CMP, T7, TSH #### [facility] [address] [address] [address] Alejandra Crystal Calcium [Mass/Vol] 8.8 mg/dL Normal 8.5-10.1 [facility] Comment on above: Performed By: #### L IPID, URIC, CMP, T7, TSH #### [facility] [address] [place] [address] Dr. Alejandra Crystal Chloride [Moles/Vol] 110 mmol/L Critically high 98-107 [facility] Comment on above: Performed By: #### L IPID, URIC, CMP, T7, TSH #### [facility] [address] [place] [address] Dr. Alejandra Crystal CO2 [Moles/Vol] 23.9 mmol/L Normal 21.0-32.0 [facility] Comment on above: Performed By: #### L IPID, URIC, CMP, T7, TSH #### [facility] [address] [place] [address] Dr. Alejandra Crystal Creatinine [Mass/Vol] 0.90 mg/dL Normal 0.55-1.02 [facility] Comment on above: Performed By: #### L IPID, URIC, CMP, T7, TSH #### [facility] [address] [place] [address] Dr. Alejandra Crystal EGFR-AF TAIWANESE >=60 Normal >=60 [facility] Comment on above: Performed By: #### L IPID, URIC, CMP, T7, TSH #### [facility] [address] [place] [address] Dr. Alejandra Crystal EGFR-NON AF TAIWANESE >=60 Normal >=60 [facility] Comment on above: Performed By: #### L IPID, URIC, CMP, T7, TSH #### [facility] [address] [address] [address] Alejandra Crystal Globulin (S) [Mass/Vol] 3.5 g/dL Normal [facility] Comment on above: Performed By: #### L IPID, URIC, CMP, T7, TSH #### [facility] [address] [address] [address] Alejandra Crystal Glucose [Mass/Vol] 107 mg/dL Critically high 74-106 [facility] Comment on above: Performed By: #### L IPID, URIC, CMP, T7, TSH #### [facility] [address] [place] [address] Dr. Alejandra Crystal Potassium [Moles/Vol] 3.3 mmol/L Critically low 3.5-5.1 [facility] Comment on above: Performed By: #### L IPID, URIC, CMP, T7, TSH #### [facility] [address] [address] [address] Alejandra Crystal Protein [Mass/Vol] 7.3 g/dL Normal 6.4-8.2 [facility] Comment on above: Performed By: #### L IPID, URIC, CMP, T7, TSH #### [facility] [address] [address] [address] Alejandra Crystal Sodium [Moles/Vol] 142 mmol/L Normal 136-145 [facility] Comment on above: Performed By: #### L IPID, URIC, CMP, T7, TSH #### [facility] [address] [address] [address] Alejandra Crystal Urea nitrogen [Mass/Vol] 13.0 mg/dL Normal 7.0-18.0 [facility] Comment on above: Performed By: #### L IPID, URIC, CMP, T7, TSH #### [facility] [address] [address] [address] Alejandra Crystal Urea nitrogen/Creatinine [Mass ratio] 14.4 mg/mg Normal [facility] Comment on above: Performed By: #### L IPID, URIC, CMP, T7, TSH #### [facility] [address] [place] [address] Dr. Alejandra Crystal TSHon 01-01-2022 TSH 0.177 uIU/mL Critically low 0.358-3.740 [facility] Comment on above: Performed By: #### L IPID, URIC, CMP, T7, TSH #### [facility] [address] [place] [address] Dr. Alejandra Crystal T4 LABCORPon 12-02-2021 T4 [Mass/Vol] 4.8 ug/dL Normal 4.5-12.0 [facility] Comment on above: Performed By: #### I NFLUAB #### [facility] [address] [place] [address] Dr. Alejandra Crsytal OCC BLD IMMUNO SCREENon 11-06 OCCULT BLOOD Negative Normal NEGATIVE [facility] Comment on above: Performed By: #### O BSCRN #### [facility] [address] [place] [address] Dr. Alejandra Crystal CBC AUTO DIFFon 11-30-2021 BASO # 0.1 103/ul Normal 0.0-0.1 [facility] Comment on above: Performed By: #### I NFLUAB #### [facility] [address] [place] [address] Dr. Alejandra Crystal Basophils/100 WBC (Bld) 0.8 % Normal 0.2-2.0 [facility] Comment on above: Performed By: #### I NFLUAB #### [facility] [address] [place] [address] Dr. Alejandra Crystal EO # 0.0 103/ul Normal 0.0-0.7 [facility] Comment on above: Performed By: #### I NFLUAB #### [facility] [address] [place] [address] Dr. Alejandra Crystal Eosinophils/100 WBC (Bld) 0.3 % Critically low 0.9-7.0 [facility] Comment on above: Performed By: #### I NFLUAB #### [facility] [address] [address] [address] Alejandra Crystal Erythrocyte distribution width (RBC) [Ratio] 12.8 % Normal 11.0-15.0 [facility] Comment on above: Performed By: #### I NFLUAB #### [facility] [address] [place] [address] Dr. Alejandra Crystal Hematocrit (Bld) [Volume fraction] 48.6 % Critically high 36.0-48.0 [facility] Comment on above: Performed By: #### I NFLUAB #### [facility] [address] [place] [address] Dr. Alejandra Crystal Hemoglobin (Bld) [Mass/Vol] 16.0 g/dL Normal 12.0-16.0 [facility] Comment on above: Performed By: #### I NFLUAB #### [facility] [address] [place] [address] Dr. Alejandra Crystal IG # 0.38 10e3/ul Critically high 0.00-0.03 [facility] Comment on above: Performed By: #### I NFLUAB #### [facility] [address] [place] [address] Dr. Alejandra Crystal IG % 2.7 % Critically high 0.0-0.5 [facility] Comment on above: Performed By: #### I NFLUAB #### [facility] [address] [place] [address] Dr. Alejandra Crystal LYMPH # 1.9 103/ul Normal 1.2-3.8 [facility] Comment on above: Performed By: #### I NFLUAB #### [facility] [address] [place] [address] Dr. Alejandra Crystal Lymphocytes/100 WBC (Bld) 13.4 % Critically low 20.5-60.0 [facility] Comment on above: Performed By: #### I NFLUAB #### [facility] [address] [place] [address] Dr. Alejandra Crystal MANUAL DIFF REQ NO Normal [facility] Comment on above: Performed By: #### I NFLUAB #### [facility] [address] [place] [address] Dr. Alejandra Crystal MCH (RBC) [Entitic mass] 30.7 pg Normal 26.7-34.0 [facility] Comment on above: Performed By: #### I NFLUAB #### [facility] [address] [place] [address] Dr. Alejandra Crystal MCHC (RBC) [Mass/Vol] 32.9 g/dL Normal 29.9-35.2 [facility] Comment on above: Performed By: #### I NFLUAB #### [facility] [address] [place] [address] Dr. Alejandra Crystal MCV (RBC) [Entitic vol] 93.3 fL Normal 81.0-99.0 [facility] Comment on above: Performed By: #### I NFLUAB #### [facility] [address] [place] [address] Dr. Alejandra Crystal MONO # 0.8 103/ul Normal 0.3-0.8 [facility] Comment on above: Performed By: #### I NFLUAB #### [facility] [address] [place] [address] Dr. Alejandra Crystal Monocytes/100 WBC (Bld) 5.7 % Normal 1.7-12.0 [facility] Comment on above: Performed By: #### I NFLUAB #### [facility] [address] [place] [address] Dr. Alejandra Crystal NEUT # 10.8 103/ul Critically high 1.4-6.5 [facility] Comment on above: Performed By: #### I NFLUAB #### [facility] [address] [place] [address] Dr. Alejandra Crystal Neutrophils/100 WBC (Bld) 77.1 % Critically high 43.0-75.0 [facility] Comment on above: Performed By: #### I NFLUAB #### [facility] [address] [place] [address] Dr. Alejandra Crystal Platelet mean volume (Bld) [Entitic vol] 9.7 fL Normal 9.5-13.5 [facility] Comment on above: Performed By: #### I NFLUAB #### [facility] [address] [place] [address] Dr. Alejandra Crystal PLT 284 103/ul Normal 150-450 [facility] Comment on above: Performed By: #### I NFLUAB #### [facility] [address] [address] [address] Alejandra Crystal RBC 5.21 106/ul Normal 4.20-5.40 [facility] Comment on above: Performed By: #### I NFLUAB #### [facility] [address] [address] [address] Alejandra Crystal WBC 14.0 103/ul Critically high 4.0-11.0 [facility] Comment on above: Performed By: #### I NFLUAB #### [facility] [address] [place] [address] Dr. Alejandra Crystal FREE T3on 11-30-2021 FREE T3 2.30 pg/mlL Normal 2.18-3.98 [facility] Comment on above: Performed By: #### O BSCRN #### [facility] [address] [place] [address] Dr. Alejandra Crystal GLYCOHEMOGLOBIN A1Con 2021 ADA RECOMMENDATION SEE BELOW Normal [facility] Comment on above: Result Comment: ADA RECOMMENDED LIMIT 4.0 - 6.0 ADA THERAPEUTIC TARGET < 7.0 ACTION SUGGESTED > 7.0 Performed By: #### O BSCRN #### [facility] [address] [place] [address] Dr. Alejandra Crystal HbA1c (Bld) [Mass fraction] 5.0 % Normal 4.5-6.2 [facility] Comment on above: Performed By: #### O BSCRN #### [facility] [address] [place] [address] Dr. Alejandra Crystal LIPID PROFILEon 11-30-2021 CHOL-HDL RATIO NORM SEE BELOW Normal [facility] Comment on above: Result Comment: 3.3 - 4.4 LOW RISK 4.4 - 7.1 AVERAGE RISK 7.1 - 11.0 MODERATE RISK >11.0 HIGH RISK Performed By: #### O BSCRN #### [facility] [address] [address] [address] Alejandra Crystal Cholesterol [Mass/Vol] 159 mg/dL Normal <=200 [facility] Comment on above: Performed By: #### O BSCRN #### [facility] [address] [address] [address]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 Start: 12-17-2022 End: 05-08-2023 Alcohol intake Current drinker of alcohol (finding) [facility] Start: 05-12-2015 Alcohol Comment occassional Lesvia [facility] Start: 1979 Sex Assigned At Not on file [facility] Start: 12-17-2022 End: 02-05-2023 History of Social function [facility] Adult Depression Screening Assessment 5 [facility] Functional Status Date Assessment Result Facility 06-10-2023 Functional Status N/A [facility] 05-07-2023 Functional Status N/A [facility] 04-19-2023 Functional Status N/A [facility] 03-14-2023 Functional Status N/A [facility] 10-01-2022 Functional Status N/A [facility] 08-14-2022 Functional Status N/A [facility] 05-18-2022 Functional Status N/A [facility] 04-11-2022 Functional Status N/A [facility] 04-09-2022 Functional Status N/A [facility] 02-09-2022 Functional Status N/A [facility] 01-16-2022 Functional Status N/A [facility] Clinical Notes 11-17-2021 to 06-10-2023 Note Date & Type Note Facility 06-10-2023 Evaluation + Plan note Extrac brandon from: Title:Pain Managment Follow up Author:Ade Puente Date:06/10/23 Impression and Plan Patient is a 43-year-old female with a past medical history seen for chronic pain, fibromyalgia, and lumbosacral neuritis. We reviewed her MRI that was back from 2019. Unfortunate, the recent repeat left-sided L4-5 and L5-S1 transforaminal epidural steroid injection did not give her relief like the historical ones did. Based on her pain pattern, her failure to improve with previous conservative treatments, and the fact that she did not get any long-term relief from the recent injection we discussed obtaining updated lumbar MRI for possible injection options versus surgical consultation depend on the results. Patient is agreeable. We will obtain updated lumbar MRI and she will follow-up after. In the meantime she is going to continue on the methocarbamol. She is requesting a refill as well as the Lyrica now at 150 mg twice daily. OARRS reviewed. Refill sent to the pharmacy. She will follow-up after the MRI for reevaluation to discuss options PAOLA score: 36% [facility]11-01-2023 NoteHNO ID: [id number] Author: Stalin Reyes MD Service: ? Author Type: Physician Type: Progress Notes Filed: 05/08/2023 3:40 PM Note Text: [facility] General Neurology Follow up/ Established patient visit Individuals who were included in, or assisted with the encounter were: Mitesh Burgess Stalin Reyes MD Chief Complaint/Issues: Mitesh Burgess is a 43 year old R handed female w PMH chronic migraine stopped Emgality half year ago, anxiety, depression, skull mass, seen in the [facility] for General Neurology for: Dizziness, headache and tremor Most Recent Neurological Assessment and Plan: Last Filed Values Date of Most Recent Assessment and Plan 12/17/22 Specialty General Neurology Assessment Mitesh Burgess is a 42 year old R handed female w PMH chronic migraine stopped Emgality half year ago, anxiety, depression, skull mass, seen in the [facility] for General Neurology for: 1. Dizziness, headache and tremor --Tremor: It appears like essential tremor. I do not see Parkinsonism at this time except that she does have psychomotor slowing. She is on multiple medications for her psychiatric disease which may cause tremor. She also has family history of essential tremor. We will observe her over time. I also asked her to talk with her psychiatrist to see whether her psych medication can be consolidated. --Dizziness: I think this is associated with her chronic migraine. She was on Emgality. It was stopped 6 months to a year ago and her headache and dizziness returned. I will restart her Emgality at this time. Meanwhile, we will give her meclizine for symptomatic management. --Skull mass: She had MRI brain with without contrast in February 2022 which showed a skull mass. 3-month follow-up was recommended but she did not have it. I will refer her to brain tumor. I will order MRI brain with without contrast since he is overdue. --Anxiety and depression Plan --We will repeat MRI brain and have you see a brain tumor doctor for your skull lesion. Please bring the old MRI disc to your appointment --Meclizine 12.5mg twice a day as needed for your dizziness. Do not take it if it doesn't help --Your dizziness is related to your migraine. We need to restart Emgality injection. Inject two pens (240mg) the first month, and then 120mg (1 pen) per months thereafter --The tremor might be related to your anxiety medicine. You can talk with your psychiatrist to see whether some of them can be reduced --Follow up with me in 4-5 months HPI/Interval History: Tremor: She has been having tremor for at least 4 years. Mostly in right hand. Her grandma has essential tremor. It gets worse when her anxiety hits. Vertigo: comes and goes for 6 months. It worsened a month ago. She feels room spinning and unsteady. With diplopia sometimes. It can be triggered by turning her headache and standing up. It may last for several hours. No LOC. Migraine: She had chronic migraine with dizziness/vertiginous symptoms. She used to be on Emgality which controled the headache. She stopped it 6 months to a year ago. Headache is daily now with dizziness, photophobia and phonophobia. Sometimes she feels nausea. Topamax was started by PCP at 100mg daily but it only takes the edge off. She is on Lamotrigine 300mg daily. Buspirone 30mg bid, She ws restarted on seroquel 25mg recently. 05/08/2023 She is back on Emgality. Headache is better. Still has headache sometimes but she can function with it. She took lyrica 900mg 2 days ago and she became dizzy, sleepy, feeling that she is mumbling her words all the time. She said she is on lyrica 300mg bid by pain management. Her pain management is absent [facility]. 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 Her psychiatrist recently adjusted her medications. Seroquel was stopped and Ingrezza 60 mg daily was started. Regarding the left parietal bone lesion, she had a repeat MRI and saw a doctor from the center of brain tumor. She was told to return in a year. MRI brain 01/24/2023 No acute intracranial abnormality. No pathologic enhancement. Few punctate foci of FLAIR hyperintensity in the white matter, which are nonspecific; see above. Otherwise unremarkable enhanced MRI appearance of the brain. 2.7 cm enhancing lesion in the left parietal calvarium, which demonstrates intrinsic T1 hyperintensity and is most compatible with intraosseous hemangioma. General Examination: BP 111/66 Pulse 67 Ht 160 cm (5' 3 ) Wt 97.2 kg (214 lb 4.8 oz) BMI 37.96 kg/m? General: Awake, alert, interactive, no acute distress, good nutritional status, normal development Neurological Exam Mental Status Awake but very tired and sleepy, Alert, fully oriented, attentive, speech is fast with depressed mood Cranial Nerves Visual rodriguez intact. Fundi with normal (more content not included)...[id number] Instructions* Patient Instructions* Stalin Reyes MD - 05/08/2023 3:00 PM EDT --Reduce lyrica to 150mg twice a day --Talk with your psychiatrist to see whether your psychiatric medication can be reduced because thetremor and sedation might be side effect of those medications. --Let me know if you need a referral to spine medicine --Continue Emgality --Try magnesium 400mg twice a day for headache --Follow up in 6 months [facility] of Present illness Narrative* Stalin Reyes MD - 05/08/2023 2:21 PM EDT Images from the original note were not included. [facility] Follow up/ Established patient visit Individuals who were included in, or assisted with the encounter were: Mitesh Reyes MD Chief Complaint/Issues: Mitesh Kendall Burgess is a 43 year old R handed female w PMH chronic migraine stopped Emgality half year ago, anxiety, depression, skull mass, seen in the [facility] for: Dizziness, headache and tremor Most Recent Neurological Assessment and Plan: Last Filed Values Date of Most Recent Assessment and Plan 12/17/22 Specialty General Neurology Assessment Mitesh Burgess is a 42 year old R handed female w PMH chronic migraine stopped Emgality half year ago, anxiety, depression, skull mass, seen in the [facility] for: 1. Dizziness, headache and tremor --Tremor: It appears like essential tremor. I do not see Parkinsonism at this time except that she does have psychomotor slowing. She is on multiple medications for her psychiatric disease which may cause tremor. She also has family history of essential tremor. We will observe her over time. I alsoasked her to talk with her psychiatrist to see whether her psych medication can be consolidated. --Dizziness: I think this is associated with her chronic migraine. She was on Emgality. It was stopped 6 months to a year ago and her headache and dizziness returned. I will restart her Emgality at this time. Meanwhile, we will give her meclizine for symptomatic management. --Skull mass: She had MRI brain with without contrast in February 2022 which showed a skull mass. 3-month follow-up was recommended but she did not have it. I will refer her to brain tumor. I will order MRI brain with without contrast since he is overdue. --Anxiety and depression Plan --We will repeat MRI brain and have you see a brain tumor doctor for your skull lesion. Pleasebring the old MRI disc to your appointment --Meclizine 12.5mg twice a day as needed for your dizziness. Do not take it if it doesn't help --Your dizziness is related to your migraine. We need to restart Emgality injection. Inject two pens (240mg) the first month, and then 120mg (1 pen) per months thereafter --The tremor might be related to your anxiety medicine. You can talk with your psychiatrist to see whether some of them can be reduced --Follow up with me in 4-5 months HPI/Interval History: Tremor: She has been having tremor for at least 4 years. Mostly in right hand. Her grandma has essential tremor. It gets worse when her anxiety hits. Vertigo: comes and goes for 6 months. It worsened a month ago. She feels room spinning and unsteady. With diplopia sometimes. It can be triggered by turning her headache and standing up. It may last for several hours. No LOC. Migraine: She had chronic migraine with dizziness/vertiginous symptoms. She used to be on Emgality which controled the headache. She stopped it 6 months to a year ago. Headache is daily now with dizziness, photophobia and phonophobia. Sometimes she feels nausea. Topamax was started by PCP at 100mg daily but it only takes the edge off. She is on Lamotrigine 300mg daily. Buspirone 30mg bid, She ws restarted on seroquel 25mg recently. 05/08/2023 She is back on Emgality. Headache is better. Still has headache sometimes but she can function withit. She took lyrica 900mg 2 days ago and she became dizzy, sleepy, feeling that she is mumbling her words all the time. She said she is on lyrica 300mg bid by pain management. Her pain management is absent [facility]. 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 Her psychiatrist recently adjusted her medications. Seroquel was stopped and Ingrezza 60 mg daily was started. Regarding the left parietal bone lesion, she had a repeat MRI and saw a doctor from the center of brain tumor. She was told to return in a year. MRI brain 01/24/2023 No acute intracranial abnormality. No pathologic enhancement. Few punctate foci of FLAIR hyperintensity in the white matter, which are nonspecific; see above. Otherwise unremarkable enhanced MRI appearance of the brain. 2.7 cm enhancing lesion in the left parietal calvarium, which demonstrates intrinsic T1 hyperintensity and is most compatible with intraosseous hemangioma. General Examination: BP 111/66 Pulse 67 Ht 160 cm (5' 3 ) Wt 97.2 kg (214 lb 4.8 oz) BMI 37.96 kg/m General: Awake, alert, interactive, no acute distress, good nutritional status, normal development Neurological Exam Mental Status Awake but very tired and sleepy, Alert, fully oriented, attentive, speech is fast with depressed mood Cranial Nerves Visual rodriguez intact. Fundi with normal discs and vasculature. Pupils reactive. Extraocular movements conjugate and full. No ptosis. No nystagmus. Facial sensation intact. Face symmetric and strong. Palate and tongue normal. XI normal. Motor Examination and Coordination Motor examination with normal bulk, strength and tone. Normal rapid alternating movements and coordination. Mild high frequency tremor with action. Reflexes Deep tendon reflexes graded by [facility] Deep Tendon Reflexes Right Left Biceps 2+ 2+ Triceps 2+ 2+ Brachioradialis 2+ 2+ Patellar 2+ 2+ Achilles 2+ 2+ Plantar Downgoing Downgoing Sensation Sensation intact to light touch, pinprick, proprioception and vibration. Gait Arises easily. Casual gait and Romberg are normal. Assessment & Plan 05/08/2023 - General Neurology, Stalin Reyes MD ASSESSMENT Mitesh Burgess is a 43 year old R handed female w H chronic migraine stopped Emgality half year ago, anxiety, depression, skull mass, seen in the [facility] for: 1. Dizziness, headache and tremor --Tremor: It appears like essential tremor or possible medication side effect. I do not see Parkinsonism at this time. She is on multiple medications for her psychiatric disease which may cause tremor. She also has family history of essential tremor. We will observe her over time. I also asked her to talk with her psychiatrist to see whether her psych medication can be consolidated. --Chronic migraine: doing well on Emgality. --Dizziness: It could be largely attributable to medication side effects. --Skull mass: following with center of brain tumor. --Anxiety and depression --Chronic pain in left leg: will reduce lyrica and have her follow up with pain management PLAN --Reduce lyrica to 150mg twice a day --Talk with your psychiatrist to see whether your psychiatric medication can be reduced because thetremor and sedation might be side effect of those medications. --Let me know if you need a referral to spine medicine --Continue Emgality --Try magnesium 400mg twice a day for headache --Follow up in 6 months No diagnosis found. No follow-ups on file. Data Review Objective Current Outpatient Medications Medication Sig valbenazine (INGREZZA) 60 mg capsule Take 80 mg by mouth once daily. diclofenac, EC, (VOLTAREN) 75 mg EC tablet Take 75 mg by mouth once daily. levothyroxine (SYNTHROID) 75 mcg tablet Take 1 tablet by mouth every afternoon. liothyronine (CYTOMEL) 5 mcg tablet Take 4 tablets by mouth every afternoon. galcanezumab-gnlm (EMGALITY PEN) 120 mg/mL pen Inject 1 mL under the skin once every month. Do not shake. meclizine (ANTIVERT) 12.5 mg tab Take 1 tablet by mouth twice daily as needed. QUEtiapine (SEROQUEL) 50 mg tablet Take 50 mg by mouth daily at bedtime. lamoTRIgine (LAMICTAL) 25 mg tablet daily at bedtime. Takes 2 tabs along with 200 mg busPIRone HCl 30 mg tablet twice daily. dicyclomine (BENTYL) 10 mg capsule Take 10 mg by mouth. ondansetron orally disintegrating (ZOFRAN ODT) 4 mg disintegrating tablet as needed. desvenlafaxine ER (PRISTIQ) 100 mg 24 hr tablet once daily. Takes 2 tabs cetirizine (ZYRTEC) 10 mg tablet lamoTRIgine (LAMICTAL) 200 mg tablet No current facility-administered medications for this visit. ACTIVE PROBLEM LIST Pleurisy Acute Idiopathic Pericarditis Chest Pain On Breathing Other Neutropenia (Hcc) Intractable Chronic Migraine Without Aura and Without Status Migrainosus Cervicalgia Essential Tremor Dizziness Anxiety Depression Hemangioma of Bone PAST MEDICAL HISTORY Diagnosis Date Acquired cyst of kidney Acute costochondritis Anxiety associated with depression Bronchospasm Chest pain Depression Near syncope Pleurisy PAST SURGICAL HISTORY Procedure Laterality Date AMP F/TH / JT/PHALANX W/NEURECT W/DIR CLSR CARDIAC CATHETERIZATION HX 05/01/15 Preserved ejection fraction. Normal coronary arteries. CARPAL TUNNEL right wrist CHOLECYSTECTOMY PAST SURGICAL HISTORY OF botox injections for migraines VAGINAL HYSTERECTOMY UTERUS 250 GM/< Social History Tobacco Use Smoking status: Never Smokeless tobacco: Never Substance Use Topics Alcohol use: Yes Comment: occassional Drug use: No FAMILY HISTORY Problem Relation Age of Onset Heart Mother valvular problems None Father None Sister Review of Systems Lab and Test Review: Results for orders placed or performed in visit on 06/24/18 EMG(NEURO/NI) Result Value Ref Range Driller Multiple Spindle Please click on 'View Neuro EMG' in the Scanned Documents area BELOW to obtain complete EMG data and result. Outside Data/Labs: Subjective Patient-Entered Data: 11/01/23 - GENERAL NEUROLOGY SCORES No flowsheet data found. Depression Screening 03/25/2018 06/24/2018 PHQ-2 Score 2 5 PHQ-9 Score 19 22 TERE-2 Total Score 6 6 TERE-7 Total Score 17 15 No flowsheet data found. No flowsheet data found. No flowsheet data found. I spent a total of 40 minutes on the date of the service which included preparing to see the patient, [id number] patient care, completing clinical documentation, obtaining and/or reviewing separately obtained history, performing a medically appropriate examination, counseling and educating the pat ient/family/caregiver, ordering medications, tests, or procedures, independently interpreting results (not separately reported), communicating results to the patient/family/caregiver, and care coordination (not separately reported). Stalin Reyes MDThere is no data to display for this encounter documented in [facility] encounterC[facility] Note [id number] Evaluation + Plan noteExtracted from: Title:Pain Managment Follow up Author:Ade Puente Date:04/19/23 Impression and Plan Patient is a 43-year-old female with a past medical history significant For chronic pain, fibromyalgia, and lumbar neuritis. shea this time, patient states that her radicular symptoms have returned. She is once again having lower back pain with left radiating leg pain. Previous left-sided transforaminal epidural steroid injection gave her significant relief. We reviewed her MRI. Based on her MRI, her pain pattern, her physical exam, and the previous injection response that she got from the transforaminal epidural steroid injection I recommended repeating the left-sided L4-5 and L5-S1 transforaminal epidural steroid injection under fluoroscopy for both diagnostic and therapeutic purposes. Procedure was discussed. Risk and benefits were discussed. Patient is agreeable. She will follow-up 3 weeks after the injection for reevaluation. Call clinic sooner if necessary. OARRS reviewed. Refill of Lyrica sent. PAOLA score: 42% [facility]09-08-2023 Evaluation + Plan noteExtracted from: Title:ED Note Author:Hailey Triana, Chandni Sidra Gamaliel te:03/15/23 1. Migraine headache (G43.90 9: Migraine, unspecified, not intractable, without status migrainosus) Orders: diphenhydrAMINE, 25 mg = 0.5 mL, Injection, IV Push, Once, Stop date 03/14/23 23:20:00 EDT, STAT, Start date 03/14/23 23:20:00 EDT, 03/14/23 23:20:00 EDT ketorolac, 30 mg = 1 mL, Injection, IV Push, Once, Stop date 03/14/23 23:20:00 EDT, STAT, Start date 03/14/23 23:20:00 EDT, 03/14/23 23:20:00 EDT metoclopramide, 10 mg = 2 mL, Injection, IV Push, Once, Stop date 03/14/23 23:20:00 EDT, STAT, Start date 03/14/23 23:20:00 EDT, 03/14/23 23:20:00 EDT Sodium Chloride 0.9% intravenous solution, 500 mL, Soln-IV, IV, Once, Stop date 03/14/23 23:20:00 EDT, STAT, Start date 03/14/23 23:20:00 EDT, 500 mL/hr, Infuse over 1, hour(s) [facility]09-08-2023 Hospital Discharge instructions Patient Education 03/15/2023 01:14:45 Migraine Headache Migraine Headache A migraine headache is an intense, throbbing pain on one side or both sides of the head. Migraine headaches may also cause other symptoms, such as nausea, vomiting, and sensitivity to light and noise. A migraine headache can last from 4 hours to 3 days. Talk with your doctor about what things may bring on (trigger) your migraine headaches. What are the causes? The exact cause of this condition is not known. However, a migraine may be caused when nerves in the brain become irritated and release chemicals that cause inflammation of blood vessels. This inflammation causes pain. This condition may be triggered or caused by: Drinking alcohol. Smoking. Taking medicines, such as: ?Medicine used to treat chest pain (nitroglycerin). ? control pills. ?Estrogen. ?Certain blood pressure medicines. Eating or drinking products that contain nitrates, glutamate, aspartame, or tyramine. Aged cheeses,chocolate, or caffeine may also be triggers. Doing physical activity. Other things that may trigger a migraine headache include: Menstruation. . Hunger. Stress. Lack of sleep or too much sleep. Weather changes. Fatigue. What increases the risk? The following factors may make you more likely to experience migraine headaches: Being a certain age. This condition is more common in people who are 25 55 years old. Being female. Having a family history of migraine headaches. Being . Having a mental health condition, such as depression or anxiety. Being obese. What are the signs or symptoms? The main symptom of this condition is pulsating or throbbing pain. This pain may: Happen in any area of the head, such as on one side or both sides. Interfere with daily activities. Get worse with physical activity. Get worse with exposure to bright lights or loud noises. Other symptoms may include: Nausea. Vomiting. Dizziness. General sensitivity to bright lights, loud noises, or smells. Before you get a migraine headache, you may get warning signs (an aura). An aura may include: Seeing flashing lights or having blind spots. Seeing bright spots, halos, or zigzag lines. Having tunnel vision or blurred vision. Having numbness or a tingling feeling. Having trouble talking. Having muscle weakness. Some people have symptoms after a migraine headache (postdromal phase), such as: Feeling tired. Difficulty concentrating. How is this diagnosed? A migraine headache can be diagnosed based on: Your symptoms. A physical exam. Tests, such as: ?CT scan or an MRI of the head. These imaging tests can help rule out other causes of headaches. ?Taking fluid from the spine (lumbar puncture) and analyzing it (cerebrospinal fluid analysis, or CSF analysis). How is this treated? This condition may be treated with medicines that: Relieve pain. Relieve nausea. Prevent migraine headaches. Treatment for this condition may also include: Acupuncture. Lifestyle changes like avoiding foods that trigger migraine headaches. Biofeedback. Cognitive behavioral therapy. Follow these instructions at home: Medicines Take wzzr-pzp-aimttcx and prescription medicines only as told by your health care provider. Ask your health care provider if the medicine prescribed to you: ?Requires you to avoid driving or using heavy machinery. ?Can cause constipation. You may need to take these actions to prevent or treat constipation: ?Drink enough fluid to keep your urine pale yellow. ?Take hilg-iqc-leufewh or prescription medicines. ?Eat foods that are high in fiber, such as beans, whole grains, and fresh fruits and vegetables. ?Limit foods that are high in fat and processed sugars, such as fried or sweet foods. Lifestyle Do not drink alcohol. Do not use any products that contain nicotine or tobacco, such as cigarettes, e- cigarettes, and chewing tobacco. If you need help quitting, ask your health care provider. Get at least 8 hours of sleep every night. Find ways to manage stress, such as meditation, deep breathing, or yoga. General instructions Keep a journal to find out what may trigger your migraine headaches. For example, write down: ?What you eat and drink. ?How much sleep you get. ?Any change to your diet or medicines. If you have a migraine headache: ?Avoid things that make your symptoms worse, such as bright lights. ?It may help to lie down in a dark, quiet room. ?Do not drive or use heavy machinery. ?Ask your health care provider what activities are safe for you while you are experiencing symptoms. Keep all follow-up visits as told by your health care provider. This is important. Contact a health care provider if: You develop symptoms that are different or more severe than your usual migraine headache symptoms. You have more than 15 headache days in one month. Get help right away if: Your migraine headache becomes severe. Your migraine headache lasts longer than 72 hours. You have a fever. You have a stiff neck. You have vision loss. Your muscles feel weak or like you cannot control them. You start to lose your balance often. You have trouble walking. You faint. You have a seizure. Summary A migraine headache is an intense, throbbing pain on one side or both sides of the head. Migraines may also cause other symptoms, such as nausea, vomiting, and sensitivity to light and noise. This condition may be treated with medicines and lifestyle changes. You may also need to avoid certain things that trigger a migraine headache. Keep a journal to find out what may trigger your migraine headaches. Contact your health care provider if you have more than 15 headache days in a month or you develop symptoms that are different or more severe than your usual migraine headache symptoms. This information is not intended to replace advice given to you by your health care provider. Make sure you discuss any questions you have with your health care provider. Document Revised: 10/16/2019 Document Reviewed: 08/06/2019 [employer] Patient Education 2022 Network18. Follow Up Care 03/14/2023 21:27:36 With:Tae Alcazar Address: [address] [place] [id number] Business (1) When:03/18/2023 Comments:Return to the emergency room if your headache recurs or any new symptoms. [facility]08-01-2023 NoteHNO ID: [id number] Author: Nathanael Ryan MD Service: ? Author Type: Physician Type: Progress Notes Filed: 02/05/2023 11:43 AM Note Text: [facility] New Patient Consultation Referred by Stalin Reyes [address] [facility] [id number] Diagnosis: skull hemangioma Subjective History of Present Illness: 42 years old female patient with Migraine: She had chronic migraine with dizziness/vertiginous symptoms. She used to be on Emgality which controled the headache. She stopped it 6 months to a year ago. Headache is daily now with dizziness, photophobia and phonophobia. Sometimes she feels nausea. Topamax was started by PCP at 100mg daily but it only takes the edge off. Refrred by her neurologist Stalin Diaz for opinion regarding the skull mass. Therapy Status Data Form Past Medical History: PAST MEDICAL HISTORY Diagnosis Date Acquired cyst of kidney Acute costochondritis Anxiety associated with depression Bronchospasm Chest pain Depression Near syncope Pleurisy Past Surgical History: PAST SURGICAL HISTORY Procedure Laterality Date AMP /07/09 JT/PHALANX W/NEURECT W/DIR CLSR CARDIAC CATHETERIZATION HX 05/01/15 Preserved ejection fraction. Normal coronary arteries. CARPAL TUNNEL right wrist CHOLECYSTECTOMY PAST SURGICAL HISTORY OF botox injections for migraines VAGINAL HYSTERECTOMY UTERUS 250 GM/< Family History: FAMILY HISTORY Problem Relation Age of Onset Heart Mother valvular problems None Father None Sister Social History Tobacco Use Smoking status: Never Smokeless tobacco: Never Substance Use Topics Alcohol use: Yes Comment: occassional Drug use: No Allergies: Adhesive Tape (Rosins); Clindamycin; Codeine; Latex, Natural Rubber; and Seasonal Allergies Current Outpatient Medications Medication Sig valbenazine (INGREZZA) 60 mg capsule Take 80 mg by mouth once daily. diclofenac, EC, (VOLTAREN) 75 mg EC tablet Take 75 mg by mouth once daily. levothyroxine (SYNTHROID) 75 mcg tablet Take 1 tablet by mouth every afternoon. liothyronine (CYTOMEL) 5 mcg tablet Take 4 tablets by mouth every afternoon. galcanezumab-gnlm (EMGALITY PEN) 120 mg/mL pen Inject 1 mL under the skin once every month. Do not shake. meclizine (ANTIVERT) 12.5 mg tab Take 1 tablet by mouth twice daily as needed. QUEtiapine (SEROQUEL) 50 mg tablet Take 50 mg by mouth daily at bedtime. lamoTRIgine (LAMICTAL) 25 mg tablet daily at bedtime. Takes 2 tabs along with 200 mg busPIRone HCl 30 mg tablet twice daily. dicyclomine (BENTYL) 10 mg capsule Take 10 mg by mouth. ondansetron orally disintegrating (ZOFRAN ODT) 4 mg disintegrating tablet as needed. desvenlafaxine ER (PRISTIQ) 100 mg 24 hr tablet once daily. Takes 2 tabs cetirizine (ZYRTEC) 10 mg tablet lamoTRIgine (LAMICTAL) 200 mg tablet No current facility-administered medications for this visit. Objective Physical Exam: BP 110/64 Pulse 75 Temp 97.9 Resp 18 Ht 5' 2.795 (1.60m) Wt 225 lb 4.8 oz (102.2kg) SpO2 99% BMI 40.17 kg/(m2). General appearance: well appearing, in no acute distress, alert PE Neuro: AANDO x3. CN II-XII grossly intact. Motor: appropriate muscle bulk, tone, and strength. Sensorium: grossly intact. Gait: Unremarkable Karnofsky performance status: 90 - Able to carry on normal activity, minor signs or symptoms of disease. PHQ 2 and 9 Total Scores 06/24/2018 PHQ-2 Score 5 PHQ-9 Score 22 Labs: CBC Latest Ref Rng AND Units 08/07/2017 08/29/2017 09/04/2017 WBC 3.70 - 11.00 k/uL 3.62(L) 4.94 4.11 RBC 3.90 - 5.20 m/uL 4.14 3.89(L) 4.12 HEMOGLOBIN 11.5 - 15.5 g/dL 13.2 12.5 13.1 HEMATOCRIT 36.0 - 46.0 % 39.1 35.6(L) 38.6 MCV 80.0 - 100.0 fL 94.4 91.5 93.7 MCH 26.0 - 34.0 pG 31.9 32.1 31.8 MCHC 30.5 - 36.0 g/dL 33.8 35.1 33.9 RDW-CV 11.5 - 15.0 % 13.2 13.0 13.0 PLATELETS 150 - 400 k/uL 222 242 240 MPV 9.0 - 12.7 fL 9.0 9.0 9.1 BASO% % 0.6 0.4 0.2 ABS NEUT (ANC) 1.45 - 7.50 k/uL 1.30(L) 2.91 2.58 ABS LYMPH 1.00 - 4.00 k/uL 1.63 1.51 1.15 ABS MONO 0.00 - 0.86 k/uL 0.59 0.41 0.29 ABS EOSIN 0.00 - 0.45 k/uL 0.08 0.09 0.08 ABS BASO 0.00 - 0.10 k/uL <0.03 <0.03 <0.03 No flowsheet data found. Final Pathology: N/A Imaging: MRI Report MRI BRAIN WO/W IVCON Exam End: 01/24/2023 2:18 PM (Final result) Narrative: * * *Final Report* * * DATE OF EXAM: Jan 24 2023 2:18PM [facility] 0295 - MRI BRAIN WO/W IVCON / PROCEDURE REASON: Brain tumor (HCC) * * * * Physician Interpretation * * * * EXAMINATION: MRI BRAIN WO/W IVCON HISTORY: Brain tumor (HCC) Per the electronic medical record: PMH chronic migraine stopped Emgality half year ago, anxiety, depression, skull mass, seen in the [facility] for: Dizziness, headache and tremor 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 TECHNIQUE: Routine brain MRI protocol (more content not included)...[place] [id number] History of Present illness Narrative* Nathanael Ryan MD - 02/05/2023 10:09 AM EDT Images from the original note were not included. [facility] New Patient Consultation Referred by Stalin Reyes [address] [facility] [id number] Diagnosis: skull hemangioma Subjective History of Present Illness: 42 years old female patient with Migraine: She had chronic migraine with dizziness/vertiginous symptoms. She used to be on Emgality which controled the headache. She stopped it 6 months to a year ago. Headache is daily now with dizziness, photophobia and phonophobia. Sometimes she feels nausea. Topamax was started by PCP at 100mg daily but it only takes the edge off. Refrred by her neurologist Stalin Diaz for opinion regarding the skull mass. Therapy Status Data Form Past Medical History: PAST MEDICAL HISTORY Diagnosis Date Acquired cyst of kidney Acute costochondritis Anxiety associated with depression Bronchospasm Chest pain Depression Near syncope Pleurisy Past Surgical History: PAST SURGICAL HISTORY Procedure Laterality Date AMP /07/09 JT/PHALANX W/NEURECT W/DIR CLSR CARDIAC CATHETERIZATION HX 05/01/15 Preserved ejection fraction. Normal coronary arteries. CARPAL TUNNEL right wrist CHOLECYSTECTOMY PAST SURGICAL HISTORY OF botox injections for migraines VAGINAL HYSTERECTOMY UTERUS 250 GM/< Family History: FAMILY HISTORY Problem Relation Age of Onset Heart Mother valvular problems None Father None Sister Social History Tobacco Use Smoking status: Never Smokeless tobacco: Never Substance Use Topics Alcohol use: Yes Comment: occassional Drug use: No Allergies: Adhesive Tape (Rosins); Clindamycin; Codeine; Latex, Natural Rubber; and Seasonal Allergies Current Outpatient Medications Medication Sig valbenazine (INGREZZA) 60 mg capsule Take 80 mg by mouth once daily. diclofenac, EC, (VOLTAREN) 75 mg EC tablet Take 75 mg by mouth once daily. levothyroxine (SYNTHROID) 75 mcg tablet Take 1 tablet by mouth every afternoon. liothyronine (CYTOMEL) 5 mcg tablet Take 4 tablets by mouth every afternoon. galcanezumab-gnlm (EMGALITY PEN) 120 mg/mL pen Inject 1 mL under the skin once every month. Do not shake. meclizine (ANTIVERT) 12.5 mg tab Take 1 tablet by mouth twice daily as needed. QUEtiapine (SEROQUEL) 50 mg tablet Take 50 mg by mouth daily at bedtime. lamoTRIgine (LAMICTAL) 25 mg tablet daily at bedtime. Takes 2 tabs along with 200 mg busPIRone HCl 30 mg tablet twice daily. dicyclomine (BENTYL) 10 mg capsule Take 10 mg by mouth. ondansetron orally disintegrating (ZOFRAN ODT) 4 mg disintegrating tablet as needed. desvenlafaxine ER (PRISTIQ) 100 mg 24 hr tablet once daily. Takes 2 tabs cetirizine (ZYRTEC) 10 mg tablet lamoTRIgine (LAMICTAL) 200 mg tablet No current facility-administered medications for this visit. Objective Physical Exam: BP 110/64 Pulse 75 Temp 97.9 Resp 18 Ht 5' 2.795 (1.60m) Wt 225 lb 4.8 oz (102.2kg) SpO2 99% BMI 40.17 kg/(m^2). General appearance: well appearing, in no acute distress, alert PE Neuro: A&O x3. CN II-XII grossly intact. Motor: appropriate muscle bulk, tone, and strength. Sensorium: grossly intact. Gait: Unremarkable Karnofsky performance status: 90 - Able to carry on normal activity, minor signs or symptoms of disease. PHQ 2 and 9 Total Scores 06/24/2018 PHQ-2 Score 5 PHQ-9 Score 22 Labs: CBC Latest Ref Rng & Units 08/07/2017 08/29/2017 09/04/2017 WBC 3.70 - 11.00 k/uL 3.62(L) 4.94 4.11 RBC 3.90 - 5.20 m/uL 4.14 3.89(L) 4.12 HEMOGLOBIN 11.5 - 15.5 g/dL 13.2 12.5 13.1 HEMATOCRIT 36.0 - 46.0 % 39.1 35.6(L) 38.6 MCV 80.0 - 100.0 fL 94.4 91.5 93.7 MCH 26.0 - 34.0 pG 31.9 32.1 31.8 MCHC 30.5 - 36.0 g/dL 33.8 35.1 33.9 RDW-CV 11.5 - 15.0 % 13.2 13.0 13.0 PLATELETS 150 - 400 k/uL 222 242 240 MPV 9.0 - 12.7 fL 9.0 9.0 9.1 BASO% % 0.6 0.4 0.2 ABS NEUT (ANC) 1.45 - 7.50 k/uL 1.30(L) 2.91 2.58 ABS LYMPH 1.00 - 4.00 k/uL 1.63 1.51 1.15 ABS MONO 0.00 - 0.86 k/uL 0.59 0.41 0.29 ABS EOSIN 0.00 - 0.45 k/uL 0.08 0.09 0.08 ABS BASO 0.00 - 0.10 k/uL <0.03 <0.03 <0.03 No flowsheet data found. Final Pathology: N/A Imaging: MRI Report MRI BRAIN WO/W IVCON Exam End: 01/24/2023 2:18 PM (Final result) Narrative: * * *Final Report* * * DATE OF EXAM: Jan 24 2023 2:18PM LN 0295 - MRI BRAIN WO/W IVCON / PROCEDURE REASON: Brain tumor (HCC) * * * * Physician Interpretation * * * * EXAMINATION: MRI BRAIN WO/W IVCON HISTORY: Brain tumor (HCC) Per the electronic medical record: PMH chronic migraine stopped Emgality half year ago, anxiety, depression, skull mass, seen in the [facility] for: Dizziness, headache and tremor 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 TECHNIQUE: Routine brain MRI protocol without and with contrast including diffusion and gradient echo images. MQ: [id number] Contrast: 20 mL Dotarem IV COMPARISON: None. Reported prior outside MRI brain from 02/2022 is not currently available for review or comparison. RESULT: Acute Change: There is no evidence of restricted diffusion to suggest an acute infarct. Hemorrhage: No evidence of prior parenchymal hemorrhage on the gradient echo images. Mass Lesion/ Mass Effect: No evidence of an intracranial mass or extra-axial fluid collection. No abnormal parenchymal or leptomeningeal enhancement is noted following contrast administration. No significant mass effect. Chronic Change: Few punctate foci of FLAIR hyperintensity in the supratentorial white matter which are nonspecific and minimal in extent for age, may reflect minimal subtle sequelae of remote insult, minimal chronic microangiopathic change, or sequelae of vascular mediated migraines. Parenchyma: No significant volume loss for age. The brain parenchyma is otherwise within normal limits of signal intensity and morphology. Ventricles: Normal caliber and morphology. Skull Base/calvarium: Hypothalamic and pituitary region are grossly normal. Craniocervical junction is normal. No significant marrow replacement process. Left calvarial lesion measuring 2.7 x 0.9 cm (AP by TRV), which demonstrates intrinsic T1 hyperintensity, T2/FLAIR hyperintensity, and superimposed patchy enhancement, most compatible with intraosseous hemangioma given the intrinsic T1 hyperintensity. This extends to the inner table, with perhaps minimal expansion of the calvarium, but no definite cortical discontinuity or underlying dural based enhancement. Vasculature: Major intracranial arterial structures, and dural venous sinuses show typical flow void, suggesting patency by spin echo criteria. Other: The visualized paranasal sinuses and mastoid air cells are essentially clear. The orbits and extracranial soft tissues are unremarkable. Impression: IMPRESSION: No acute intracranial abnormality. No pathologic enhancement. Few punctate foci of FLAIR hyperintensity in the white matter, which are nonspecific; see above. Otherwise unremarkable enhanced MRI appearance of the brain. 2.7 cm enhancing lesion in the left parietal calvarium, which demonstrates intrinsic T1 hyperintensity and is most compatible with intraosseous hemangioma. [facility] Transcribe Date/Time: Jan 24 2023 2:35P Dictated by : DONAL BURNS MD This examination was interpreted and the report reviewed and electronically signed by: DONAL BURNS MD on Jan 24 2023 2:42PM EST Data Review: Arnold Sanchez MD 10:26 AM 02/05/2023 [facility] Personal review of medical records: I reviewed the [facility] chart. Personal review of image, tracing or specimen: YES Lesion size: Multifocal: No Subependymal spread: No Assessment & Plan 42 year old lady with headache and a bone lesion in left parietal bone. Tumor has been stable sincelast year and MRI characteristics are more consistent with hemangioma. I discussed differential diagnosis and treatment options. Since this looks like a benign tumor and stable. She does not need anysurgical intervention for it. She will be followed by her neurologist for her headache and we follow for skull tumor. Treatment Options and Risks: I have discussed the management options and their respective risks andbenefits with the patient. Will schedule another MRI in a year and follow up with our APPs. Headache will be managed by neurologists since this tumor doesn't cause it. Recommendations: As above Medicines: No Change Instructions: Continue present activity No resident was available to participate in this visit. I saw and evaluated the patient. I reviewedthe fellow 's note and agree with findings and plan as written. I spent a total of 60 minutes on the date of the service which included preparing to see the patient, [id number] patient care, completing clinical documentation, obtaining and/or reviewing separately obtained history, counseling and educating the patient/family/caregiver, independently interpretin g results (not separately reported), and care coordination (not separately reported). Nathanael Ryan MD February 05, 2023 10:46 AM documented in this encounterC[facility] Nurse Note* Ade Patten Ma - 02/05/2023 9:40 AM EDT Additional intake questions: Has the patient had fever, nausea, vomiting, diarrhea, constipation, fatigue for > 1 week? No Does the patient have a decreased appetite? No Does patient want to see a It Compliance Manager? No (yes to any of above refer patient to schedulers for dietitian appointment) ) Does patient have any new or increased numbness or tingling of extremities? No Is patient interested in fertility information? No Does patient need any prescription refills? No Does patient have an advanced directive in place? No, Patient referred to Resource [facility] documented in this encounterC[facility]23 NoteHNO ID: [id number] Author: Ade Valderrama RT(R) Service: ? Author Type: Technologist Type: Progress Notes Filed: 01/24/2023 2:05 PM Note Text: Radiology Service Progress Note DATE OF SERVICE: January 24, 2023 TIME: 2:05 PM PATIENT IDENTITY VERIFICATION COMPLETED USING TWO (2) STANDARD IDENTIFIERS: Name and Date of confirmed by patient verbally. FALL SCREENING: Has the patient had 2 falls in the last year or 1 fall with injury or currently using an Ambulatory Assistive Device (Walker, Cane, Wheelchair, Crutches, etc.)? No PATIENT GENDER DATA: Female. status: : No status: NO. PATIENT RELEVANT IMPLANT DATA REVIEWED: Yes ALLERGIES: Reviewed and unchanged CONTRAST ALLERGY: NO. EXAM: MRI - CONTRAST TYPE: GROUP II PERIPHERAL IV DATA: Ambulatory: A peripheral IV was started in the Right upper extremity with a Angio cath: 24 gauge. RADIOLOGY DEPARTMENT: MR; Exam(s) Completed: Head: Routine Brain SIGNATURE: RT Jamal(R) PATIENT NAME: Mitesh Burgess DATE: January 24, 2023 TIME: 2:05 [facility]07-20-2023 History of Present illness Narrative* Ade Valderrama RT(R) - 01/24/2023 2:04 PM EDT Radiology Service Progress Note DATE OF SERVICE: January 24, 2023 TIME: 2:05 PM PATIENT IDENTITY VERIFICATION COMPLETED USING TWO (2) STANDARD IDENTIFIERS: Name and Date of confirmed by patient verbally. FALL SCREENING: Has the patient had 2 falls in the last year or 1 fall with injury or currently using an Ambulatory Assistive Device (Walker, Cane, Wheelchair, Crutches, etc.)? No PATIENT GENDER DATA: Female. status: : No status: NO. PATIENT RELEVANT IMPLANT DATA REVIEWED: Yes ALLERGIES: Reviewed and unchanged CONTRAST ALLERGY: NO. EXAM: MRI - CONTRAST TYPE: GROUP II PERIPHERAL IV DATA: Ambulatory: A peripheral IV was started in the Right upper extremity with a Angio cath: 24 gauge. RADIOLOGY DEPARTMENT: MR; Exam(s) Completed: Head: Routine Brain SIGNATURE: RT Jamal(R) PATIENT NAME: Mitesh Burgess DATE: January 24, 2023 TIME: 2:05 PM documented in this encounterC[facility]06-15-2023 Miscellaneous Notes* Telephone Encounter - Edilberto Tirado RN - 12/20/2022 3:58 PM EDT Ambulatory Pharmacy Prior Authorization Note Provider Intervention Required?: No- Pharmacy completed on your behalf. Rx Plan: Medicaid [facility] ([facility]) Drug: Emgality 120MG/ML auto-injectors (migraine) Cover My Meds Garcia: [id number] Determination: Approved Prior Authorization/Case #: n/a Prior Authorization Expiration: 06/15/23 Time to PA Submission in CMM: 15 min Time to PA Determination in CMM: 2 days Additional Information: PLEASE NOTE: Pt will need follow up office visit to review/document efficacy and tolerability of treatment before prior auth expiration. Please ensure a future follow up appt is scheduled with your patient. This will ensure no interruption in patient's ability to obtain medic ation refills. Prescriptions will now be processed through [facility] Delivery [facility] for determination of next steps. For questions relating to this submission, please contact [facility] at [phone] * Telephone Encounter - Edilberto Tirado RN - 12/18/2022 4:55 PM EDT [facility] received prescription(s) for Emgality 120MG/ML auto-injectors (migraine). Benefits investigation was conducted, indicating that a prior authorization is required. PA was initiated and pending review through [employer]. All pertinent clinical information was submitted to insurance. [facility] Garcia: [id number] Ordering Provider: MD Celestino Etienne Alisha, RN [facility] P: , F: documented in this encounterC[facility]06-12-2023 NoteHNO ID: [id number] Author: Stalin Reyes MD Service: ? Author Type: Physician Type: Progress Notes Filed: 12/17/2022 2:28 PM Note Text: [facility] Follow up/ Established patient visit Individuals who were included in, or assisted with the encounter were: Mitesh Reyes MD Chief Complaint/Issues: Mitesh Burgess is a 42 year old R handed female w PMH chronic migraine stopped Emgality half year ago, anxiety, depression, skull mass, seen in the [facility] for: Dizziness, headache and tremor Most Recent Neurological Assessment and Plan: Last Filed Values None HPI/Interval History: Patient is new to me. She used to follow w headache clinic but hasn't done so since 2020. Tremor: She has been having tremor for at least 4 years. Mostly in right hand. Her grandma has essential tremor. It gets worse when her anxiety hits. Vertigo: comes and goes for 6 months. It worsened a month ago. She feels room spinning and unsteady. With diplopia sometimes. It can be triggered by turning her headache and standing up. It may last for several hours. No LOC. Migraine: She had chronic migraine with dizziness/vertiginous symptoms. She used to be on Emgality which controled the headache. She stopped it 6 months to a year ago. Headache is daily now with dizziness, photophobia and phonophobia. Sometimes she feels nausea. Topamax was started by PCP at 100mg daily but it only takes the edge off. She is on Lamotrigine 300mg daily. Buspirone 30mg bid, She ws restarted on seroquel 25mg recently. OSH MRI 02/24/2022 1. Normal MRI appearance of the brain. 2. Nonspecific lesion within the left parietal bone which appears confined to the marrow cavity; hemangioma versus red-yellow marrow changes versus tumor. Consider CT of the head for additional evaluation of the calvarium, follow-up MRI of the brain in 3 months to document stability versus change. General Examination: BP 103/72 Pulse 71 Ht 160 cm (5' 3 ) Wt 101.2 kg (223 lb) SpO2 100% BMI 39.50 kg/m? General: Awake, alert, interactive, no acute distress, good nutritional status, normal development, well-kept HEENT: Head: normocephalic, no dysmorphism Eyes: normal Oropharynx: normal Neck: Carotid bruit: absent Movements: free Lymphadenopathy: absent Extremities: Deformity/contracture: absent Distal pulses: present Edema: absent Trophic change: absent Spine: Deformity: absent Heart: Regular S1 S2 normal Lungs: Clear to auscultation Abdomen: Soft, nontender Neurological Exam Mental Status Alert, fully oriented, attentive, with fluent speech but psychologically slow Cranial Nerves Visual rodriguez intact. Fundi with normal discs and vasculature. Pupils reactive. Extraocular movements conjugate and full. No ptosis. No nystagmus. Facial sensation intact. Face symmetric and strong. Palate and tongue normal. XI normal. Motor Examination and Coordination Motor examination with normal bulk, strength and tone. No drift. Normal rapid alternating movements and coordination. High-frequency fine tremor in the right hand gait is distractible and slightly more pronounced with action and posture. Reflexes Deep tendon reflexes graded by MRC Deep Tendon Reflexes Right Left Biceps 2+ 2+ Triceps 2+ 2+ Brachioradialis 2+ 2+ Patellar 2+ 2+ Achilles 2+ 2+ Plantar Downgoing Downgoing Sensation Sensation intact to light touch, pinprick, proprioception and vibration. Gait Arises easily. Casual gait and Romberg are normal. Can rise on heels and toes. Assessment AND Plan 12/17/2022 - General Neurology, Stalin Reyes MD ASSESSMENT Mitesh Burgess is a 42 year old R handed female w PMH chronic migraine stopped Emgality half year ago, anxiety, depression, skull mass, seen in the [facility] for: 1. Dizziness, headache and tremor --Tremor: It appears like essential tremor. I do not see Parkinsonism at this time except that she does have psychomotor slowing. She is on multiple medications for her psychiatric disease which may cause tremor. She also has family history of essential tremor. We will observe her over time. I also asked her to talk with her psychiatrist to see whether her psych medication can be consolidated. --Dizziness: I think this is associated with her chronic migraine. She was on Emgality. It was stopped 6 months to a year ago and her headache and dizziness returned. I will restart her Emgality at this time. Meanwhile, we will give her meclizine for symptomatic management. --Skull mass: She had MRI brain with without contrast in February 2022 which showed a skull mass. 3-month follow-up was recommended but she did not have it. I will refer her to brain tumor. I will order MRI brain with without contrast since he is overdue. --Anxiety and depression PLAN --W (more content not included)...[facility] [id number] Note Attestation signed by Eduardo Clemente MD at 10/15/2022 8:17 AM I personally saw and examined the patient on the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 the methocarbamol. Refills were sent to her pharmacy. At this time she is going to follow-up in a few weeks per her request. She will call the clinic sooner if necessary. Future Appointments Appointment Date:03/26/2022 11:15:00 AM Scheduled Provider:Ade Hennessy PA-C Location:.[facility] Appointment Type:Pain Management - Follow Up (FT) [facility]05-13-2022 Evaluation + Plan noteExtracted from: Title:Pain management follow-up Author:Ade Hennessy PA-C Date:11/17/21 Impression and Plan Patient is a 41-year-old female with a past medical history significant for fibromyalgia, chronic pain, lumbar neuritis, sacroiliitis, neck pain, and cervical neuritis. She underwent recent left-sided L4 and L5 transforaminal epidural steroid injections on 10/30/2021 that gave her 70% relief of her radiating leg symptoms but unfortunate, she is still having left-sided buttock pain. On physical examination this appears to be related to her left-sided sacroiliac joint. We discussed different options. I recommended a left-sided sacroiliac joint injection for both diagnostic and therapeutic purposes. Procedure was discussed. Risk and benefits were discussed. Patient is agreeable. She will follow-up 2 weeks after the injection for reevaluation. Call clinic sooner if necessary. At this time she is going to continue on the Lyrica and methocarbamol. Refills will be sent to her pharmacy. OARRS was reviewed and is appropriate. She will follow-up 2 weeks after the injection for reevaluation. Call the clinic sooner if necessary. [facility] + Plan note Future Appointments Appointment Date:11/17/2021 08:45:00 AM Scheduled Provider:Ade Hennessy PA-C Location:[facility] [place] Appointment Type:Pain Management - Follow Up (FT) [facility] + Plan note Future Appointments Appointment Date:02/09/2022 10:00:00 AM Scheduled Provider:Ade Hennessy PA-C Location:[facility] [place] Appointment Type:Pain Management - Follow Up (FT) [facility] + Plan note Future Appointments Appointment Date:03/26/2022 11:15:00 AM Scheduled Provider:Ade Hennessy PA-C Location:[facility] [place] Appointment Type:Pain Management - Follow Up (FT) [facility] + Plan note Future Appointments Appointment Date:03/26/2022 11:15:00 AM Scheduled Provider:Ade Hennessy PA-C Location:[facility] [place] Appointment Type:Pain Management - Follow Up (FT) Diagnostic Tests Pending * T3 Free 02/21/22 [facility] + Plan note Future Appointments Appointment Date:04/30/2022 04:45:00 PM Scheduled Provider: Location:.PHYSICAL [place] Appointment Type:PT Eval (FT) Appointment Date:05/18/2022 11:15:00 AM Scheduled Provider:Ade Hennessy PA-C Location:FT.[facility] [place] Appointment Type:Pain Management - Follow Up (FT) Diagnostic Tests Pending * Group A Strep by PCR 04/23/22 [facility] + Plan note Future Appointments Appointment Date:08/14/2022 10:00:00 AM Scheduled Provider: Location:[facility] Appointment Type:Surgery FT Appointment Date:08/31/2022 08:45:00 AM Scheduled Provider:Ade Hennessy PA-C Location:FT.[facility] [place] Appointment Type:Pain Management - Follow Up (FT) [facility] + Plan note Future Appointments Appointment Date:08/31/2022 08:45:00 AM Scheduled Provider:Ade Hennessy PA-C Location:[facility] [place] App[facility] App[facility]ments Appointment Date:10/01/2022 10:30:00 AM Scheduled Provider:Ade Hennessy PA-C Location:[facility] [place] App[facility]ment Type[facility] Future App[facility]ments Appointment Date:06/10/2023 03:00:00 PM Scheduled Provider:Ade Hennessy PA-C Location:FT[facility] [place] App[facility]ment Type:[facility] 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 Brain tumor (HCC) Neoplasm of unspecified nature of brain documented in this encounter [facility] note* Diagnosis Radiculopathy, lumbar region- Primary Thoracic or lumbosacral neuritis or radiculitis, unspecified Intractable chronic migraine without aura and without status migrainosus Chronic migraine without aura, with intractable migraine, so stated, without mention of status migrainosus Essential tremor Essential and other specified forms of tremor Depression, unspecified depression type Anxiety Anxiety state, unspecified documented in this encounter [facility] course Narrative No data available for this section [facility] No data available for this section [facility] No data available for this section [facility] Summary Purpose Family History No Family History Records FoundNo Family History Records FoundNo Family History Records FoundNo Family History Records Found No data available for this section No data available for this section No Family History Records Found No data available for this section No Family History Records Found No data available for this section No Family History Records Found Advance Directives No Advanced Directives Records FoundNo Advanced Directives Records FoundNo Advanced Directives Records FoundNo Advanced Directives Records FoundNo Advanced Directives Records FoundNo Advanced Directives Records FoundNo Advanced Directives Records Found Additional Source Comments INFORMATION SOURCE (unrecogn ized section and content) DATE CREATED AUTHOR 12/26/2017 [facility] DATE CREATED AUTHOR AUTHOR'S ORGANIZ ATION 10/13/2022 [facility] DATE CREATED AUTHOR AUTHOR'S ORGANIZ ATION 10/15/2022 [facility] DATE CREATED AUTHOR AUTHOR'S ORGANIZ ATION 02/06/2023 [facility] DATE CREATED AUTHOR AUTHOR'S ORGANIZ ATION 05/09/2023 [facility] DATE CREATED AUTHOR AUTHOR'S ORGANIZ ATION 06/24/2023 [facility] DATE CREATED AUTHOR AUTHOR'S ORGANIZ ATION 07/12/2023 [facility] Care Team (unrecognized sect ion and content) Online Project Manager Relationship Specialty Start Date End Date Tae Alcazar MD PCP - General Family Medicine 05/10/15 Online Project Manager Relationship Specialty Start Date End Date Tae Alcazar MD PCP - General Family Medicine 05/10/15 Online Project Manager Relationship Specialty Start Date End Date Tae Alcazar MD PCP - General Family Medicine 05/10/15 Online Project Manager Relationship Specialty Start Date End Date Tae Alcazar MD PCP - General Family Medicine 05/10/15 Source Comments (unrecognize d section and content) In the event this informatio n is protected by the Federal Confidentiality of Alcohol and Drug Abuse Patient Records regulations: The Federal rules restrict any use of the information to criminally investigate or prosecute any alcohol or drug abuse patient.[facility] the event this information is protected by the Federal Confidentiality of Alcohol and Drug Abuse Patient Records regulations: The Federal rules restrict any use of the information to criminally investigate or prosecute any alcohol or drug abuse patient.[facility] the event this information is protected by the Federal Confidentiality of Alcohol and Drug Abuse Patient Records regulations: The Federal rules restrict any use of the information to criminally investigate or prosecute any alcohol or drug abuse patient.[facility] the event this information is protected by the Federal Confidentiality of Alcohol and Drug Abuse Patient Records regulations: The Federal rules restrict any use of the information to criminally investigate or prosecute any alcohol or drug abuse patient.[facility] Reason for Visit (unrecogniz ed section and content) Reason Comments Insurance Authorization Emgality 120MG/M L auto-injectors (migraine) Reason Comments Radiology MRI Reason Comments New Patient Specialty Diagnoses / Procedures Referred By Contac t Referred To Contact Neurosurgery Diagnoses Brain tumor (HCC) Procedures CONSULT TO NEUROSURGERY OFFICE/OUTPATIENT NEW HIGH MDM 60-74 MINUTES Stalin Reyes MD [address] [place] [address] Referral ID Status Reason Start Date Expiration Date V isits Requested Visits Authorized [id number] Closed PCP Requested Referral 12/17/2022 12/17/2023 1 1 Reason Comments Headache FOR RECORDS PERTAINING TO PATIENTS WHO ARE OR HAVE BEEN ENROLLED IN A CHEMICAL DEPENDENCY/SUBSTANCEABUSE PROGRAM, SOME INFORMATION MAY BE OMITTED. This clinical summary was aggregated from multiple sources. Caution should be exercised in using it in the provision of clinical care. This summary normalizes information from multiple sources, and as a consequence, information in this document may materially change the coding, format and clinical context of patient data. In addition, data may be omitted in some cases. CLINICAL DECISIONS SHOULD BE BASED ON THE PRIMARY CLINICAL RECORDS. [facility] [employer] [facility]. provides no warranty or guarantee of the accuracy or completeness of information in this document.
[2023-07-22 10:22] LABS: Basophils Absolute Auto 0.1 10^3/uL (0.0-0.1); Basophils Percent Auto 0.7 % (0.2-2.0); Eosinophils Absolute Auto 0.1 10^3/uL (0.0-0.7); Eosinophils Percent Auto 1.3 % (0.9-7.0); Hematocrit 42.8 % (36.0-48.0); Hemoglobin 14.3 g/dL (12.0-16.0); Immature Granulocytes Abs Auto 0.03 10^3/uL (0.00-0.03); Immature Granulocytes Pct Auto 0.4 % (0.0-0.5); Lymphocytes Absolute Auto 1.8 10^3/uL (1.2-3.8); Lymphocytes Percent Auto 24.5 % (20.5-60.0); Mean Corpuscular HGB Conc 33.4 g/dL (29.9-35.2); Mean Corpuscular Hemoglobin 31.1 pg (26.7-34.0); Mean Platelet Volume 9.4 fL (9.5-13.5); Monocytes Absolute Auto 0.4 10^3/uL (0.3-0.8); Neutrophils Absolute Auto 4.9 10^3/uL (1.4-6.5); Neutrophils Percent Auto 68.1 % (43.0-75.0); Platelet Count 315 10^3/uL (150-450); Red Cell Distribution Width 12.5 % (11.0-15.0); White Blood Count 7.2 10^3/uL (4.0-11.0)
[2023-07-22 10:42] LABS: Estimated Average Glucose 88 mg/dL; Glycohemoglobin A1C 4.7 % (4.5-6.2)
[2023-07-22 11:36] LABS: Alanine Aminotransferase 27 U/L (14-59); Albumin Globulin Ratio 0.9; Albumin Level 3.5 g/dL (3.4-5.0); Alkaline Phosphatase 120 U/L (46-116); Aspartate Amino Transferase 16 U/L (15-37); BUN Creatinine Ratio 16.8; Bilirubin Total 0.4 mg/dL (0.2-1.0); Calcium 8.7 mg/dL (8.5-10.1); Carbon Dioxide 24.2 mmol/L (21.0-32.0); Chloride 103 mmol/L (98-107); Chol HDL Ratio 5.6; Cholesterol 214 mg/dL (<=200); Estimated GFR (African America >60 (>=60); Estimated GFR (Non-African Ame 60 (>=60); Free T3 1.39 pg/mL (2.18-3.98); Globulin 3.7 g/dL; Glucose 98 mg/dL (74-106); HDL Cholesterol 38 mg/dL (40-60); Potassium 4.2 mmol/L (3.5-5.1); Sodium 136 mmol/L (136-145); Thyroid Stimulating Hormone 1.961 uIU/mL (0.358-3.740); Total Protein 7.2 g/dL (6.4-8.2); Triglycerides 299 mg/dL (<=150); VLDL CHOLESTEROL 59.8 mg/dL
[2023-07-23 11:13] LABS: Insulin 14.8 uIU/mL (2.6-24.9)
== END 2023-07-22 09:40 | disposition home or self-care (01) ==
LOC: LAB 09:40
PROVIDERS: PCP Family Medicine; Visit Provider Family Medicine
DX: R42 Dizziness and giddiness (principal); R07.89 Other chest pain; R55 Syncope and collapse; E78.5 Hyperlipidemia, unspecified; R73.09 Other abnormal glucose; D64.9 Anemia, unspecified; E55.9 Vitamin D deficiency, unspecified
CPT/HCPCS: 36415; 80053; 80061; 82306; 83036; 83525; 83540; 84436; 84443; 84481; 85025

== ENCOUNTER 2023-08-14 12:19 | Outpatient (REF) | payer OTHER, SELFPAY ==
--- OUTSIDE RECORDS SUMMARY | 2023-08-14 12:25 | XMS_ITS | CCD ---
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 22:06:00 EDT, Weight Dosing off work: off work, See Instructions, 1 EA, 0, Patient had a procedure with our services. She should be excused from work for 10/30/21 and 10/31/21, Supply pregabalin 225 mg oral capsule: 225 mg = 1 cap(s), Oral, BID, # 60 cap(s), Refills(s) 2, Pharmacy: [facility]/pharmacy #[id number], 158, cm, 08/31/22 9:15:00 EST, Height/Length Dosing, 91.6, kg, 05/18/22 11:25:00 EST, Weight Dosing pregabalin 300 mg Cap: 300 mg = 1 cap(s), Oral, BID, # 60 cap(s), Refills(s) 1, Pharmacy: [facility]/pharmacy #[id number], 158, cm, 10/01/22 10:45:00 EDT, Height/Length [...] cyst of lumbar spine / SNOMED CT 4501775923 / Confirmed Neuropathy / SNOMED CT 9337523355 / Confirmed Ascending aorta dilation / SNOMED CT 230023826 / Confirmed Anxiety / SNOMED CT 99721419 / Confirmed Bipolar disorder / SNOMED CT 79443864 / Confirmed Labral tear of shoulder / SNOMED CT 596373365 / Confirmed Resolved: At risk for falls / SNOMED CT 562276205 Problem added when Risk for Falls Careplan was initiated. Resolved due to patient discharge. Resolved: Migraine / SNOMED CT 40181858 Resolved: Seasonal allergies / SNOMED CT P76872DP-535P-80Q9-273V-4 [id number] Objective Vital Signs 04/19/2023 8:17 EDT Peripheral [...] seated straight leg raise Integumentary: Warm, Dry, Halley. Neurologic: Alert, Oriented. Psychi (more content not included)... [facility] Comment on above: Result Comment: Elec tronically Signed By: Ade Hennessy PA-C\.br\Date and Time Signed: 04/19/23 08:55 EDT\.br\Electronically Co-Signed By: Hai JAY, Boy Wilson\.br\Date and Time Co-Signed: 04/23/23 12:36 EDT Office/Clinic Note-Physician on 04-19-2023 Office/Clinic Note-Physician [id number]#1.00TIFF [facility] Patient Correspondenceon Patient Correspondence [id number]#1.00TIFF [facility] Patient Correspondence [id number]#1.00TIFF [facility] Patient History Officeon Patient History Office [id number]#1.00TIFF [facility] Discharge Instructionson Discharge Instructions [id number]#1.00CD:1 27 [facility] ED Clinical Summaryon 2022 ED Clinical Summary (Inserted Image. Lucie ble to display) [address] [address] ED Clinical Summary Person Information Name: MIT[facility] Age[facility] 42 Years : 1980 Sex: Female Language: Belizean PCP: Tae Alcazar MD Marital Status: Phone: [phone] Visit Id: Visit Reason: Headache; Nausea; HEADACHE [...] 03/15/2023 01:14:43 03/15/2023 01:14:43 03/15/2023 01:14:43 AD[address]ESS: [address] [place] [id number] PHYS DOC NOTES: MEDICAL INFORMATION: Prescriptions Given: Medications [...] Follow up: With: Address: When: Tae Alcazar [address] [place] [address], [place] [address] Business (1) In 3 days 03/18/2023 Comments: Return to the emergency room if your headache recurs or any new symptoms. DIAGNOSIS: 1:Migraine headache Normal [facility] ED Note-Physicianon 03-15-20 ED Note-Physician Basic [...] and Complexity of Problems Differential Diagnosis: [] [facility] Data External documents reviewed: [] My EKG [...] medications Follow-up With When Contact Information Tae Alcazar In 3 days 03/18/2023 EDT [address] [phone]- Business (1) Additional Instructions: Return to the [...] Cholecystectomy (12/07/2003), (more content not included)... Normal [facility] Comment on above: Result Comment: Elec tronically Signed By: Hailey Triana, Chandni H\.chandan\Date and Time Signed: 03/15/23 03:33 EDT ED [...] these instructions at home: Medicines ? Take llax-jbm-reneqth and prescription medicines only as told by your health care provider. ? Ask your health care provider if the medicine prescribed to you: ? Requires you to avoid driving or using heavy machinery. ? Can cause constipation. You may need to take these actions to prevent or treat constipation: ? Drink enough fluid to keep your urine pale yellow. ? Take hxmx-mbr-zcytlcs or prescription medicines. ? Eat foods that [...] different or (more content not included)... Normal [facility] ED Patient Summaryon 023 ED Patient Summary (Inserted Image. Lucie ble to display) [address] [address] Patient Discharge Instructions Person Information Name: MITESH BURGESS Age: 42 Years Arrival Date: 03/14/2023 21:26:36 Discharge Diagnosis: 1:Migraine headache Primary Care Physician: Tae Alcazar MD Provider Information Primary Provider: Chandni Hart M.D. Advanced Family Development Specialist:None The exam and treatment you received in the Emergency Department were for an urgent problem and are not intended as complete care. It is important that you follow up with a doctor, nurse practitioner, or physician?s assistant professor of art for ongoing care. If your symptoms become worse or you do not improve as expected and you are unable to reach your usual health care provider, you should return to the Emergency Department. We are available 24 hours a day. MITESH BURGESS has been given the following list of patient education materials, prescriptions and follow-up instructions: Follow-up Instructions: With: Address: When: Tae Alcazar [address] [place] [address], [place] [address] Business (1) In 3 days 03/18/2023 Comments: [...] opioids can be used to help relieve ibpeimim-qh-uddcvk pain and are often prescribed following a [...] be struggling with addiction, tell your health pediatric critical care nurse and ask for stacie (more content not included)... [facility] Prescriptions/Work Noteson 0 03-15-2023 Prescriptions/Work Notes [id number]#1.00CD:1 27 [facility] Consent for Treatmenton Consent for Treatment [id number]#1.00CD:12 7 [facility] CNOVon 02-05-2023 CNOV Office Visit (NSCAMN ) ----- MITESH BURGESS ([id number]) 1980 F Date Time Provider Department 02/05/23 9:30 AM [facility] During your visit today, we recorded the [...] No Does patient want to see a Creative Consultant? No (yes to any of above refer patient to schedulers for dietitian appointment) ) Does patient have any new or increased numbness or tingling of extremities? No Is patient interested in fertility information? No Does patient need any prescription refills? No Does patient have an advanced directive in place? No, Patient referred to [facility] Electronically Signed By: Nathanael Griffin Ma, MD 02/05/2023 11:43 AM Signed [facility] New Patient Consultation Referred by Stalin Reyes [address] [facility] [address] Diagnosis: skull hemangioma Subjective History of Present [...] 9.1 B (more content not included)... Normal [facility] MRI BRAIN WO/W IVCONon 01-24 MRI BRAIN WO/W IVCON * * *Final Report* * * DATE OF EXAM: Jan 24 2023 2:18PM YANNA 0295 - MRI BRAIN WO/W IVCON / PROCEDURE REASON: Brain tumor (HCC) * * * * Physician Interpretation * * * * EXAMINATION: MRI BRAIN WO/W IVCON HISTORY: Brain tumor (HCC) Per the electronic medical record: PMH chronic migraine stopped Emgality half year ago, anxiety, depression, skull mass, seen in the [facility] for General Neurology for: Dizziness, headache and [...] and is most compatible with intraosseous hemangioma. 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 Appliance Assembler: PSCB Transcribe Date/Time: Jan 24 2023 2:35P Dictated by : DONAL BURNS MD This examination was interpreted and the report reviewed and electronically signed by: DONAL BURNS MD on Jan 24 2023 2:42PM EST [id number] Normal [facility]18[facility] CNPN Telephone ([facility]) ----- MITESH BURGESS ([id number]) 1980 F Date Time Provider Department 12/18/22 EDILBERTO TIRADO [facility] During your visit today, we recorded the following information about you: Edilberto Tirado RN 12/18/2022 4:55 PM Signed [facility] received prescription(s) for Emgality 120MG/ML auto-injectors (migraine). Benefits investigation was conducted, indicating that a prior authorization is required. PA was initiated and pending review through [employer]. All pertinent clinical information was submitted to insurance. CM Garcia: [id number] Ordering Provider: MD Celestino Etienne Alisha, RN [facility] P: , F: Edilberto Tirado RN 12/20/2022 3:59 PM Signed Ambulatory Pharmacy Prior Authorization Note Provider Intervention Required?: No- Pharmacy completed on your behalf. Rx Plan: Medicaid [facility] ([facility]) Drug: Emgality 120MG/ML auto-injectors (migraine) Cover My Meds Garcia: [id number] Determination: Approved Prior Authorization/Case #: n/a Prior [...] refills. Prescriptions will now be processed through [facility] for determination of next steps. For questions relating to this submission, please contact [facility] at [phone] Allergies As of Date: 12/18/2022 Noted Allergy [...] Encounter Status:Closed by EDILBERTO TIRADO on 12/20/22 [facility] CNOVhipolito 12-17-2022 CNOV Office Visit (NEKASANDRAFV ) ----- MITESH BURGESS ([id number]) 1980 F Date Time Provider Department 12/17/22 1:30 PM STALIN REYES During your visit today, we recorded the following information about you: Pulse Blood pressure Weight Height 71/minute 103/72 101.2 kg 1.6 ky Reyes MD 12/17/2022 2:28 PM Signed [facility] General Neurology Follow up/ Established patient visit Individuals who were included in, or assisted with the encounter were: Mitesh Reyes MD Chief Complaint/Issues: Mitesh Burgess is a 42 year old R handed female w PMH chronic migraine stopped Emgality half year ago, anxiety, depression, skull mass, seen in the [facility] for [facility] for: Dizziness, headache [...] 42 year old R handed female w H chronic migraine stopped Emgality half year ago, anxiety, depression, skull mass, seen in the [facility] for: 1. Dizziness, headache [...] without contra (more content not included)... 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 Normal [facility] Comment on above: Result Comment: Elec tronically Signed By: AMADOU Muller APRN, Yamile Barrera\.br\Date and Time Signed: 11/20/22 10:38 EDT Patient [...] numbers. This can be done either in [place] ([place] or metric measurements. Note that charts and online BMI calculators are available to help you find your BMI quickly and easily without having to do these calculations yourself. To calculate your BMI in [place] ([place] measurements: 1. Measure your weight in [...] for Disease Control and Prevention: www.cdc.gov ? [place] [employer]: www.heart.org ? National Heart, Lung, and Blood [place]: www.nhlbi.nih.gov Summary ? Body mass index (BMI) is a number that is calculated from a person's weight and height. ? BMI may help estimate how much of a person's weight is composed of fat. BMI can help identify those who may be at higher risk for certain medical problems. ? BMI can be measured using [place]an measurements or metric measurements. ? BMI charts are used to identify whether you are underweight, normal weight, overweight, or obese. This information is not intended to replace advice given to you by your health care provider. Make sure you discuss any questions you have with your health care provider. Document Revised: 03/16/2020 Document Reviewed: 01/22/2020 [employer] Patient Education ? 2022 [facility]. Orthopedics Ankle Sprain, Phase I Rehab An [...] by your health care provider. Stretching and msejd-fy-whiysr exercises These exercises warm up your muscles and joints and improve the movement and flexibility of you (more content not included)... Normal [facility] (Inserted Image. Lucie ble to display) November 20, 2022 MITESH BURGESS [address] [place] [address] Please excuse MITESH BURGESS from work . Date and/or Time of Absence: 11/19/22 Restrictions: None Comments: Please excuse due to an acute illness. Provider Signature: Yamile Muller APRN, HUC OB-C Nurse Practitioner [address] [place] [address] [place] [address] [facility] Office Visiton 10-13-2022 Follow-up visit [id number] Georgia Burgessteresa Kendall 1980 F Date Provider Department Center 10/13/2022 [facility]ARDO [facility] No family history on file Level of Service:01815 MS OFFICE/OUTPATIENT ESTABLISHED MOD MDM 30-39 MIN (57,GC) Reason for Visit and Comments: Follow-up [618879] Normal [facility] Coding Summary.on 10-03-2022 Coding Summary. CD:[id number] Ww+PG hlYWQ+XA3VNCOiS99noZPckI7 pJ9EHLJoLYhzxHYYGHQyLVlCb mjDfUS3bfAKhGYXk IC8+QI8jEROnChpepVKyw7T9n JE9A96ape5bGPzgwPB7ILVwBq Kzvocal9ceaAk9ZLtzNuvpLxK t RGTnzD31UQX4rV98Sy64lLVkx JNfs6ygnEo5UoHxOBOhMYO8mQ cqACqjs4GaDOOvN77ktYEow4L 6 LITklXdcoQMvBcVumTE4xB3vM Fvootqwa9lwmorgTcn8dy34kB Zei3W3zMR3Q7VhhfC6HDVbeAB g JduogNAOvY5xkyems0hyzmsaL qHbGIPdXTt0ETg7KQQzeGchLz QoXW48TFY9UOPwetUeJ9UpFTR s sDdpVxO4d1L5Ux9DX4TUKsquH 1VNTUFSWTwvdGQ+CK96cc04F9 FuDdkkUmm2AFOtKRQ6iEG8pY4 n TPAsPYpnt7V3zDX8R9WxleTyc n3ff0nyHENjBBmbJ04cbODwv6 E7WEMmrOR3HRLflOxcZlJtbH7 3 Oyc+VBHkcFwpr2XhKonpp1mtb 9rhfKt6ZtibBBOavzDoqBleQT U5c3FbJl4gOJQoiBK4iIB8oD5 i LjRnOjT5LPmhL443BlIwwOIoI ogdJ01dY3FjdJO+CNPkNbr0WE QeiUwyUO3kL8LdLLTvbibgtXI m iChvQQ3hNRNrprmrEGDuxB5gV DGsC6q6ImOoJqB8XUsdX1UbTB CjfjsiYr88iF0iKnEfVjL2ICb u I2HgshB7JFUbtLWgVZkkWEB5J 51jo4I6OFDaLCMtXLO4tKY5dE 1hbGlnbjogbGVmdDsgdmVydGl j GAojGGtmA584YVXoiPqlXlSdD GluZyBEYXRlOiAgMDMvMjkvMj AyMzwvdGQ+PDVdSOQ3oCbiBNT n uXGfJPbwQf3ueNarlWjjIC3bC FEiisgrSYLgtM4uRQExyXDfzI zkTV6lKFSgdfjfn494UzJoPPT 0 MPLliDDyN1ZuuZ5nUfFuCDYtL LXzI3XusALvMEweJ600OLpjPp E8MXMgirRgO3TeFQEobUjxQcQ 0 n0C2In3Hn5MhnyllM7FfsJNaY cMxGvbtJZn4R1XfAjwmdHW+PC 82RPZxMO48VQh6UWX2eKrsTEi i YALmY1FgsK7wBjSoZNCpOFFgV yc+PHRhYmxlIHdpZHRoPScxMD KgCjDlhVonXA1eNf5kURPwTMK v iApuuJGxMlZsd1gyRHJtCKrxY X8qaZwvB0QkaXZ2OOAdi2v0Aw 88U88cK5BxlRK+ANUcpZU8yRB 0 lB5lPdHeLvZ4UTnzL528DxAom COnGcqtq4dct5hiiFg7AcM6SY JdyiQwsFbvBYQ7d7ShZp09C12 s IHdpZHRoPSIxNSUiIHZhbGlnb s8jsN4jUa9+MQYmiJZ3oWE5yO 0sXhKmFhQ1AYrwR071AgNptFD v Uxhps2isw7usoOo4HsQaJRNse yMvsFppACQ3k3DhMt24H7WdfI wos9ZtRbk3hp15ePKlz9U3iZL 9 O8ZsJTWfzesiiRKhlUdkMX0zZ EWrtozoBDHleY3gSCLkV3a5Ts XxVyN2AVmvQ4HtlpT2UENyuCX g BETpuRQAsR3mfnrcd0sulerhB xXlIXAbABu5EDa5ICYsaUtgQh NpNLO1OpS6TOL8sGCinZ3emLy n mwiuvB8bNfo+ODE3mKBntLCMS G9iIulnzQU+GHXxGLW2tAdrPK zvTLVgtF5uBZXhQ2y1LgJbDrR 1 RGbnW1AsgdZ5LVTioPQyASTlx HNInV1agqfgl6enplbgRmXpLV QbNXy4JTw0JPMmfZvuEiXzQFL 0 QkZ9LSP8fTZhjS5tvRemjyfih G9wOyc+EihotYpgDTW4NQz8X5 KqXex9MMTspQvrRX4twPXiKAq u Xj1rwMxmrLtuCR6uDOSxidkro 112KcGhk5gyTUGpyTRkWKmpHN U1Y57jr4J9HSBoMPInZNN3nRE 4 bS3dcBaovrokwUThiXiosnRfn RtvPXouTTbvV916BFAkqBidNf UxWTj3F3YyPij6VKMbtKhtTC0 n iHWtAQmcXo5cgJtpkHptDY7tR GLdlufsd992HiLsd6fbBOGvfB JfRGngJZJ0N66ne0E2EGKfEVY w XZC1qID8bP7soPqdmxrziAKsj EeuhlTbgZgkYZchMPibT406YX BalKfqWoOhdFu1E6AgBll3NMO z cQskMX8mcVCzWRymQg5swEzzm OohZK4zMLCthvuil687DbVkw1 qnHMZkbYGfVWdoPLI1M55si1M 6 BXGsYMPcNEU3oGT3dV2oaIlqe jogbGVmdDsgdmVydGljYWwtYW pfC411JCVusVauXeKppUymwpP g LQzwSKi0P2RbPwlrgKO+PC90Y XUrNL35hMUlwWRih1oyyRo1Fo CrZIQzNGE5qQbiRKiqx4MnOZK t O57ohXTvj3S6FOEqqUzxnOTwP iLiwXH0oB9sYVzjmjfff6ynlj lqVlotr6jeny36xS86F43pZSa p CTXnHQPuDXWuCFXeoFdqby7sz G9wIi8+KGAjtKZ8pQW5yP3mEZ VxSmG6QJxaD839XeLbdIZjBiu j w3fkn2kgnDm3MwU7DYRxcjZis DzgDXC1u3EgEa95V05uOYuoRS QzAZOqQIKaAIKodOoelf2vzS7 w Ii8+PUNstTC6uBX4rX4dTfGmV jT1IKpaE798FySsbTVuOuylJ4 7kR8LzmNT+SOMcJmn0QVUdeWg s BN7okBKqHTgkTl0bZTI6GsWvK kXwSHacK8KdGLEbwtzoraguiS L7PHYdUJJzxK22Vv0fnVclMBM w kGRHwZ7onyamz0bmjojjFvEsF VWjBPt4LLs6RBVsiLvrJkTsIM S0IaT4QPV2mHIryJ6gyMwypey g wP6kC6PfPAKajsfpYz13hN2lB tPrRiY6RRwbEsi+WFkLVN5PQM XGJ67UAiuDIDNiLEqlhXT+PHR k WNP2kWkqJQkdSXEkcI4oIMDkV 9k4IeSvKsA7EFtxA1JvEPAfwt hnPd96yK1wSkShJvE0SMeeD5Y v vaC3GBKjmNGuMPozROO9Q92dn 9T2PDVqMJXdJUX9rQE4gX7svW lnbjogbGVmdDsgdmVydGljYWw t HTzeT585FFZnsQlxJaD2DbU2R nJ9Jco6H3AaQgs3XZIlsSypAG 7ejDBnBQwyWg5hzIlniYgmJC3 w KTUqxcdgHCUvmN1wTBPhqJKpw BrjIA7cRUJilqami697TyHaMN X7PSJpgPBuT6BajG6aSaMxYAW w WRPgT2FimBAjLLzsK231ILitZ rP6MXSgwpQhD4KjICQrtIjwKs B5e3P4Bc93OhVUOCHmbbifsIV + RWFyDKF6cEvbLOhrESFzoY1jV NIpB1o7DhSvTlY6TCugX6StEA BxvkucHa56mX7gVkBrIjD6EEy u G2UxnuS1EYLmsEYaNQmkWKH6G 95cu2C6DZWsQHXfMSO1dWU5hO 1hbGlnbjogbGVmdDsgdmVydGl j CUqkCKtnC790WJStlOimUiVbb WFsZTwvdGQ+DAZeNPR0nRbcRD emMJYjnZ7xYKJyX5t1EkKvDvQ 1 FQdtV5GnCSHujlluFu82jC1gI dUnRcI9ECuoD2BbjaU4UFVsbY CyJTisZAQ4G34jd5C2YYHjMLZ w YBZ8yLH5oR4ulOtiqdpnoBEth RvfxuQsoFkdBIiaVBfoL908JH PjdEeuBtGzqB3fTOZvWXfcbEX u dDwvdGQ+FV48hl51D8BqKvsfX ub8FMZdHEA2uUT4kW5yVMCkKX btl8G7gAU1F1TuccTidh2vp8e s PIVdYEmwB08vqTOsb5U0PZJdb KY0JOFoxBsaPkLleG72Wnc+PG GyvUgbg4OeFohzv1wqm6arjPh 9 UmRcPDYhloRvzUhaOBY2z0JtN w10R05dRFthKLKoDKNzELOmHA OjkSzagt5njM6tQh7+PGNvbCB 3 pHU4jP4xIpYjItX5SFiiJ416M rUbjYUsKcgol2dds6nejJd0Uy KmVXDaguGexDmuLIU4q0EtZs3 8 O9XbuZigu8LhXug1jl12cLOil 0X2xND0P3MiQVLgvqpjlEEeqW ngEA3dSOYgkakuMJQmdY8fTBX p S9k1EmNoXpM6TMzhB6SyxxX9W UTwpMQcQFBkuKGZdJ8xpfotf9 lncwhsBuRyYWHhNJw0YTo7BGL s yDggBqUqUPX3WpU3GAB1pPMlw F0luVfrvcyppH7uXth+UGh5c2 lgjNQeBA5jkDB6PU56YH28gIA g g9X4gVN6V9TkJBEqscjrpntxu KV7GUAqUIQsiS56Fi3wqGybNj 6xRRUcCOS1RHAneZQoM2FxoL4 y OuKcGPFgLWXkS5UcxLBtMKzyY 569TRxsDdH5AYNdjcVyZ3AlCI AukYswIyV0n8A2Ym4OAW98AT7 0 AI05zUPvc7D8ePK1F3ItONIvy dnohyhlrSH9FPTyEVRetK24Ic 3ivFoyKo3pHIWlLRS1ZQOdqCN z P6LdbP1tWoMcLZZlSZGvC2Frn QMpNRkuL806JVcwJdW3AEQfro SmJ3NoBTTmrDlhQaS3a9Q0Lv6 N Fu34QX18GR54rYSvo0Z5uVR7E 7GkKPAbfskeafjvrTT7RQCaRE IarM13Dv5smZfyKl7aQDRvEIW 0 HKNjjXYwR9ZqdO6bIdVoUBWpD OLjG7ZbyBKsWPloN303POztFo D6QUGwmsGdO0VqYBDfeSryJcT 0 q2X4Bv8JEAtkocx2X5BcJwkgx HI+ZN93DDTkXZ09eMMtvRBzh7 sroPa0HbZdJXYlIGC3vIbdNLw i l0VpSOWk (more content not included)... Normal [facility] Consent for Treatmenton 09-06 Consent for Treatment [id number]#1.00CD:1 27 Normal [facility] Consultation Noteon 10-02-19 Consultation Note Patient: [...] EA, Refill(s) 0, qid and prn sob/wheezing, [facility]/pharmacy #[id number], 160, cm, 04/27/20 22:06:00 EDT, Height/Length Dosing, 98, kg, 04/27/20 22:06:00 EDT, Weight Dosing off work: off work, See Instructions, 1 EA, 0, Patient had a procedure with our services. She should be excused from work for 10/30/21 and 10/31/21, Supply pregabalin 200 mg Cap: 200 mg = 1 cap(s), Oral, BID, X 30 day(s), # 60 cap(s), Refills(s) 2, Pharmacy: [facility]/pharmacy #[id number], 158, cm, 08/14/22 9:29:00 EST, Height/Length Dosing, 91.6, kg, 05/18/22 11:25:00 EST, Weight Dosing pregabalin 225 mg oral capsule: 225 mg = 1 cap(s), Oral, BID, # 60 cap(s), Refills(s) 2, Pharmacy: [facility]/pharmacy #[id number], 158, cm, 08/31/22 9:15:00 EST, Height/Length Dosing, 91.6, kg, 05/18/22 11:25:00 EST, Weight Dosing pregabalin 300 mg Cap: 300 mg = 1 cap(s), Oral, BID, # 60 cap(s), Refills(s) 1, Pharmacy: [facility]/pharmacy #[id number], 158, cm, 10/01/22 10:45:00 EDT, Height/Length [...] cyst of lumbar spine / SNOMED CT 2284182991 / Confirmed Neuropathy / SNOMED CT 9979449060 / Confirmed Ascending aorta dilation / SNOMED CT 671756480 / Confirmed Anxiety / SNOMED CT 85479289 / Confirmed Bipolar disorder / SNOMED CT 57839445 / Confirmed Labral tear of shoulder / SNOMED CT 508455538 / Confirmed Resolved: At risk for falls / SNOMED CT 188938024 Problem added when Risk for Falls Careplan was initiated. Resolved due to patient discharge. Resolved: Migraine / SNOMED CT 01399239 Resolved: Seasonal allergies / SNOMED CT [id number]-[id number]-1 [id number] Objective Vital Signs 10/01/2022 10:36 EDT Peripheral Pulse Rate 71 bpm Respiratory Rate 18 br/min Systolic Blood Pressure 133 mmHg Diastolic Blood Pressure 83 mmHg Mean Arterial Pressure, Cuff 100 mmHg General: Alert and oriented, No acute distress. Eye: Normal conjunctiva. HENT: Normocephalic, Normal hearing. Cardiovascular: No edema. Musculoskelet (more content not included)... Normal [facility] Comment on above: Result Comment: Elec tronically Signed By: Ade Hennessy PA-C\.br\Date and Time Signed: 10/01/22 11:01 EDT\.br\Electronically Co-Signed By: Hai JAY, Boy Wilson\.br\Date and Time Co-Signed: 10/16/22 15:58 EDT Office/Clinic Note-Physician on 10-01-2022 Office/Clinic Note-Physician [id number]#1.00CD:127 Normal [facility] Patient Correspondenceon Patient Correspondence [id number]#1.00CD:127 Normal [facility] Patient History Officeon Patient History Office [id number]#1.00CD:127 [facility] Coding Summary.on 09-26-2022 Coding Summary. CD:[id number] Ww+PG hlYWQ+RR2OTVZeO19kgWOytO4 fH5ZAGHdYRtkfFLZSYLeMUcWz tpOkFW3fmRTyTKKt IC8+HX6wUVSfLowytNHlr1M8j NV8T19iqt5pGRangSL3VGThKm Htwhloa2coxPt9LKzyRodcNmR t OWJdkK14WCX2hH05Me08dWXkl HQqb4pzcMi0VvJbSWUuXFT5iT buQJruf3ZsWPQoQ03haCWou5Z 6 OZWmaSceoTPiPkRfhYA2zW5nZ Hxhyrgxx0jgqqqcLgd9bb47kE Kqy3P3tUH4Q3XlnjQ8FWIowRQ g FalmaTVSgC6czqicz4wzxfiwP lNoAHNvRKe2MJi2INGhdHfrWd CxSL66BBA5OQFkhfStO3BpKOO s pIopEtF5k5I9Zo9IX5PWCmdqM 1VNTUFSWTwvdGQ+EG12xj47B8 SnQoeaUjd0MPUxFHQ3iPU8fD9 n VZYgGVnpa3X5wLS0Y3XmguFcr v9ku1fjTZKvHMqyF98kpDRmv8 G7ELPfaBI6ODHdoRsvUvNgwQ3 3 Oyc+UFZsuRiyl1XlXlsid8ouq 9ewuAm1LasrAEIjobHfwLezCI F0b1NoGd0gIHGavDH7tGC8pM9 i LxLhCmJ2ZIghK611IeVffJAgR ivjX87oS0AylCK+OEBvMit2QJ EqiHvvXL9jX8WtDUBnnzpnoOE m mTmpJZ1jBNGxfwzrYOTmiX5bE RQzW0j0FlQlHuZ4IQbdG0DmZU JbgupxWd63tQ9mFiIoOpU4SRp u D3VnnfZ8NNVssDGgKZgkECT5A 74ry6S8TZSdSAVwBCB9zXW9aS 1hbGlnbjogbGVmdDsgdmVydGl j RKuiDOvoS389OURyzBklQyBaD GluZyBEYXRlOiAgMDMvMjIvMj AyMzwvdGQ+GFBoMAN9hVguOIC n pTRaYOmfIj3dqCpspRdrCI4yQ XDiyaovSMVghE2fUEKwvBMzqS qzLU6vFZKhbqpqe365QjUaLDJ 0 PAOwxWTfN3QjdP8wOtCoNGScI AJzA2PqhBOmIWivK164THpzHk C2MWNrbkHwY4BwSHGqyHgaOrJ 0 g7U7Qj3Ck3WunrkfI0TbpVHwP eTbVtvwMKw9Z7NyJemhdIR+PC 22LISdJI16RHq5NMX1rKwyQLr i FNGvZ2BmxL5gWjDuDNSaSGTlJ yc+PHRhYmxlIHdpZHRoPScxMD HgQnVssHymVX9xTc2cYAJtVJG v qHdcjBBbOqXks3bcVPNbLGfaS N3kmVefW4ErsFO1WYLrf8n9Bq 18J72tS9PbqWQ+NUHqdYP7qZX 0 uJ1yXnUiFkQ1VEnpJ436YeZse ATsFufrg9ozr2zgeYk1QhW7LI NmjaKhoGxuPVO8a4GrUt75S59 s IHdpZHRoPSIxNSUiIHZhbGlnb b7stZ7bTc7+OTMstKO2fJR4nV 1dAqOlDbQ9WCueD232EbRrzLG v Xunah3biy0clbIb6NdOiLQJhw qQtkAtiOFZ3x1TrVz25C5UtoE lkn8JzGvm8jf47uMSfg4X5aUY 9 S2AwYNHhhngcnQDpkUmiSO4zC JSbkupdIEOkmD2fFWLbN5h9Vy NtLaB0NDmzA3GhweK0FEXkjTJ g PVBnfMHPgY4pcjmzy4oydrmaV xFgQTYuYDp7SNx2MVIvnRsaSc PeJMB1AkR1SQB9fSMryC1ujBb n hhbimS5aTff+SGU0wDBzyXSGZ E1pOndwcMB+KSWkVIN0aRcoGF glFLIhsG7nJQXrO6s1QqEbHeM 1 PCyaY1CimkL6YUSquDUtBCXqs LKJrE2uxbzth4csjphiAkRsAQ AsLVq1JZc5QPDhjXlhCnYlEKL 0 KvO9DTW7lUIgiR4viXtxxfeon G9wOyc+AknfsQppDSW8VAx5R3 LfZfc3VCPkpTxkIR0xmPOiNHm u Ro7zrTcftYdbVB1oQOGioyemw 745RtXlx6lzAKHudUYtOKicSN K9M53fu1P5EYTsDHXlBXB0oDV 4 pA2hyFazvisgbTRfaVpzbeIkw HowCAdrHIneG477WTEsmIphVc AqGIg4L5TbQfx7AKJbyJjhQV1 n zXNcTEsqKs5ftZwvuWzrFW3vR DKdfztkh999DgFmg1hiUGDoxT YyEOhvFLW9B24jp9U5HPSzSNS w JTS8iXW7tL4yoUjgsdqvoMSko JsjsjAycXsfMVaaXYymJ611LW BxeHbuUnJjtKv7T7PaPla4KZK z cOitVI5myZUtTByxJc9mwPsxo FodAJ1tMTEmnvtwd875BuRjt5 dmQMZznXKmJKbpOXP0O18zx4H 6 CKLlVORoBTV3oQD5cL3urWioo jogbGVmdDsgdmVydGljYWwtYW ueG054YYJgbQgcMtExyIcyuuJ g JForZVr0M9IeJdocmOJ+PC90Y LMwHX72hKTpcRTza4sqaLh3Xh KiKQFjHGZ4rQxkEMpty5OfHSQ t T81ufUOik7N0PHUerXcriYLrI bKmhBJ9sQ4jBJwkvqggm2lwmr jlOpgwm4jueb47jS40U19mILn p RSJmDYBvRNRwFDIyfOvelj5gc G9wIi8+TPDbrDU7mQQ4nY4wHX RiPmQ1WVmpV401PfWmcQZnEdl j k7dvt2ezzZf7XlR2MLLtczWgc NsqWMD8u2LlKk54B53aWOleHE PaWPFmQZQoSGOslVfviy0yeK9 w Ii8+KKQgjFY1iHC2wY6jTmOzJ yJ5TAhoN295EnSasOTrRickN2 1uD4EyaCQ+DPSwLlo2JPCorDe s EM3lkNCgITapGa4iSYU5RnDhP iEjYBwkS9HvHEFpdtgywppxkC G2HJRhAJPgvE71Dm8weOkdITD w rFQJeY5cixndo9qlkmxtFgFxN VGhAQx5BQf0CLMniDksNfLdCE N5BoY5RVA6tDTdxG8ucFvvnqn g kJ9bO4CwBLTpqxpqEv54gW5wK eYyVfN9FEgiSsl+UIxUPL8OGY EKP52HNacOBMPfJDmiuJM+PHR k CHD1hHczFMyvRTDtaY3rLCOfA 4p4IeKpRhJ7CPowQ2ZzCKQvak qwTb83yL7wJpMrHbS9IRjjV3D v neC3HICucDTmKNskBOV4M73fp 8Q9CYAxIJHgYUW0oXV5cY0woR lnbjogbGVmdDsgdmVydGljYWw t BWuhB688KHFjkQlxVfR8AxJ5X tM1Fds7Y4JfYia0FHLotBnjQW 9rhYAfUOwbMm8duMayfOndCG1 w RQFpiyeyNDPbjN1fGOLbhSKxa AtxJX4eNAWehrfxg020NvVrHX D7VKJrfLVbH5YakF1wLcHkHPE w UTTkF2SzyDLqBCypD427VDyrM qM0DWHpjdAbY9GaNCSplTyrWb E2r4O3Cp95VgAXNTFrcidktHE + PMEfXYU8hNuxTYwvIWRhzD6tK MFxP4w8PfXvMvL9TZyrX1NiFH AkxpqmIi84qP9tErHoDhF4YLi u X1NpylI0NYOicAOvVGzbHAQ5I 86hi5F1TVMmOAPrYVQ5fFR0xT 1hbGlnbjogbGVmdDsgdmVydGl j JJnyOUamJ785HMGhwCcxNcUqh WFsZTwvdGQ+SQNsBBL2mBcpVB qyFXIizC5eAOLhA1a6CzCoNsJ 1 AOewD2ZwZQLjcajnJl79yI7oT sZnSfM2ZEfpN6JvdnE5RIBmqY OwPJjoUNG4Y97et2O8PKGaIML w OHE6vTL8rO7fmGchzwjvzKEht AdlmzAmhYylSMsdHMlxT516EA FywExnGp92fNCxrHahicF0F2R k PjwvdHI+CA22ZRNcPY07cIWuj OGoe5thkPd2KmMrGGKqEVU5bI ryBLncx7SoOGHwH44kcSHdm3J 6 SIQbfFtmzSUuDpWdqFA0gI0wY Ggtbnoay5vlyzzpWcynv5utze 56fR22S64gWEtoEPDzYKQoTVC i EYUeiGqrvr1ihP4hIp0+PGNvb RN7qKX6kT2eMvLaUaP6KEekB5 42PdAkdDHsDnzzv8ycm8xgeBd 9 LqGpGIMnjdXtqGvvFET3l1SxW p53I72vDOcwOREfDKVuRHGkHC TpyNbhut1lrH1cPa4+CI0qr3d n vz25mT78nHZ+IVEtFBB3eGvzM MigJSZflD5yYBrrRjV2YPTnOe XtrF27aTFjGMqrQt7uwXeuiFs g ZO9dMQTedbtsa892DjVwo7erI BYpfVFwVOtdBGT2A72li1S7DI OjHOOgNUP9xCX2kJ2qwXqpqtp g bGVmdDsgdmVydGljYWwtYWxpZ 217BSCgmRezBxXhrMDfN7wxqp VHBA4zEuvuzYF+UZXfVUH3yCy l XJmdZMNbkI1jOREjB8y5QwKdC uT8OHnrI7AeawV2QYEaiRRwBW KctCKWoG8pcyeqo3oahfhqWqX w XMEdJEm9HDb9QOPgiDjdAjJnO OG1UeB2GHZ3xNXoqN9ibTwkhm yxpR5iJtw+RklOOjwvdGQ+PHR k ZVN9uDvnEKtxPKJptJ3kFUTpR 4k1FtYzYwW0WMlzL9SeglK5VH HemMEdEPVahUBYmF7tkqqwb3k v dhnyKvGoKIBhIAp1RQj1ZDYme NylAuYyVQE4EtD4ZZB1rSGycO 8nyConqjworR0jEwd+TVJOOjw v dGQ+LZDjRZO0iGndHGosSNTjd R3vECNhQ7l6NjYtKcF1GGydH3 UaxrJ4XQDiuDFvGPJvmXOCjD5 l qctjd9iwjnxeSlQxVEGhXHz7H Ie2GBZdyNsoFaFeAZH5PdS3HU V9cSRnqK3dwRhvbcjuvA2cQfv + BKZ2YYU5TC55XX26W9MuBmmhb GFibGU+PHRhYmxlIHdpZHRoPS uhSCWzIzYeuKtbDL4eVa4wYTF y LWNvbGxh (more content not included)... Normal [facility] Amylaseon 09-20-2022 Amylase [Catalytic activity/Vol] 36 U/L Normal 25-157 [facility] Comment on above: Performed By: #### 2 280326, 3125238, 79570820, 6445975, 86238179, 4542864, 9977624, 4847040 ####[facility] [address] [place] [address] Auto Diffon 09-20-2022 Basophils/100 WBC (Bld) 0.7 % Normal 0.0-2.0 [facility] Comment on above: Order Comment: Order Added by Discern Expert. Performed By: #### 2 034320, 7609689, 89134730, 8107669, 04467503, 9089621, 3412249, 8639234 ####[address] [address] Basophils/Leukocytes Auto (Bld) [Pure # fraction] 0.1 E9/L Normal 0.0-0.2 [facility] Comment on above: Order Comment: Order Added by Discern Expert. Performed By: #### 2 041680, 8106412, 57682504, 1985080, 50305198, 2238275, 5642538, 0106012 ####[address] [place] [address] Eosinophils/100 WBC (Bld) 0.8 % Normal 0.0-8.0 [facility] Comment on above: Order Comment: Order Added by Discern Expert. Performed By: #### 2 557642, 3592872, 24394434, 5603641, 00958118, 7208893, 4373059, 6973491 ####[address] [place] [address] Eosinophils/Leukocyte s Auto (Bld) [Pure # fraction] 0.1 E9/L Normal 0.0-0.5 [facility] Comment on above: Order Comment: Order Added by Sreedhar Expert. Performed By: #### 2 933601, 4748536, 76173529, 8350844, 73112636, 3771009, 6798914, 2205718 ####[facility] [address] [place] [address] Lymphocytes/100 WBC (Bld) 19.3 % Normal 14.0-50.0 [facility] Comment on above: Order Comment: Order Added by Discern Expert. Performed By: #### 2 977847, 0968754, 85151900, 8796325, 63336839, 4219301, 6238438, 3625661 ####[address] [place] [address] Lymphocytes/Leukocyte s Auto (Bld) [Pure # fraction] 1.8 E9/L Normal 1.0-4.0 [facility] Comment on above: Order Comment: Order Added by Sreedhar Expert. Performed By: #### 2 535280, 0105093, 73857288, 5739102, 58194024, 4580513, 6252821, 3581373 ####[address] [address] Monocytes/100 WBC (Bld) 7.1 % Normal 4.0-14.0 [facility] Comment on above: Order Comment: Order Added by Sreedhar Expert. Performed By: #### 2 636606, 5594831, 52650747, 5530117, 02835242, 3112942, 5367313, 2720164 ####[address] [place] [address] Monocytes/Leukocytes Auto (Bld) [Pure # fraction] 0.7 E9/L Normal 0.2-1.0 [facility] Comment on above: Order Comment: Order Added by Sreedhar Expert. Performed By: #### 2 435625, 1286367, 58067899, 7604799, 95580565, 2820964, 2514976, 8512567 ####[address] [place] [address] Neutrophils/100 WBC (Bld) 72.1 % Normal 36.0-75.0 [facility] Comment on above: Order Comment: Order Added by Discern Expert. Performed By: #### 2 910179, 2394163, 23949350, 7754455, 52454054, 0691898, 9561704, 1044898 ####[facility] [address] [place] [address] Neutrophils/Leukocyte s Auto (Bld) [Pure # fraction] 6.7 E9/L Normal 2.0-7.5 [facility] Comment on above: Order Comment: Order Added by Discern Expert. Performed By: #### 2 471606, 0819333, 90980400, 8124790, 32330101, 2756583, 4344355, 9787586 ####[facility] [address] [place] [address] CBC w/ Auto Diffon 3 Erythrocyte distribution width (RBC) [Ratio] 12.9 % Normal 10.9-14.2 [facility] Comment on above: Performed By: #### 2 943875, 2761327, 00871695, 2136012, 40561708, 6042120, 1774657, 5534814 ####[facility] [address] [place] [address] Hematocrit (Bld) [Volume fraction] 44.9 % Normal 34.0-46.0 [facility] Comment on above: Performed By: #### 2 336694, 8231538, 50382514, 9700615, 21355762, 2921282, 2486264, 1163125 ####[facility] [address] [place] [address] Hemoglobin (Bld) [Mass/Vol] 15.7 g/dL Normal 12.0-16.0 [facility] Comment on above: Performed By: #### 2 869585, 1558307, 76644186, 4954910, 81152282, 4950598, 5657485, 5805878 ####[facility] [address] [place] [address] MCH (RBC) [Entitic mass] 32.2 pg Normal 27.0-34.0 [facility] Comment on above: Performed By: #### 2 112887, 8137822, 21852464, 5469221, 35978272, 1875947, 3872553, 6198074 ####[address] MCHC (RBC) [Mass/Vol] 34.9 g/dL Normal 31.4-36.0 [facility] Comment on above: Performed By: #### 2 850649, 8710673, 36553055, 5188279, 12306159, 3849605, 3436452, 5232145 ####[address] [address] MCV (RBC) [Entitic vol] 92.2 fL Normal 80.0-100.0 [facility] Comment on above: Performed By: #### 2 220921, 8326264, 87295678, 0892634, 89702721, 1827866, 6663377, 8192198 ####[address] [address] Platelet mean volume (Bld) [Entitic vol] 8.3 fL Normal 6.4-10.8 [facility] Comment on above: Performed By: #### 2 741913, 7010046, 88621413, 3869226, 75735776, 6330518, 3075866, 0692369 ####[address] [address] Platelets (Bld) [#/Vol] 334.0 E9/L Normal 150.0-500.0 [facility] Comment on above: Performed By: #### 2 437530, 3022563, 33833268, 3636018, 39255782, 1248063, 3472008, 3748936 ####[address] [address] RBC (Bld) [#/Vol] 4.9 E12/L Normal 4.3-5.9 [facility] Comment on above: Performed By: #### 2 166550, 4439720, 95057100, 6942998, 39763091, 4277381, 9632450, 7217580 ####[facility] [address] [place] [address] WBC corrected for nucl RBC Auto (Bld) [#/Vol] 9.3 E9/L Normal 4.0-11.0 [facility] Comment on above: Performed By: #### 2 938003, 3591961, 10989449, 0020798, 13163945, 6755448, 6113431, 4439872 ####[facility] [address] [place] [address] CHEMISTRYOrdered By: SYSTEM SYSTEM on 09-20-2022 Albumin [...] rate/Area] mL/min/1.73 m2 Normal >=59mL/min/ 1.73 m2 [facility] Chem S GFR/1.73 sq M.predicted among non-blacks [...] 7.9 g/dL High 6.0 - 7.8 gm/dL [facility] Remisol Sodium [Moles/Vol] 136 mmol/L Normal 135 - 145 mmol/L [facility] Remisol T4 [Mass/Vol] 6.8 ug/dL Normal 4.6 - 9.1 mcg/dL [facility] Remisol T4 uptake [Mass/Vol] 44.4 % Normal 32.0 - 48.4 % [facility]isol TSH Qn 0.49 m[IU]/L Normal 0.34 - 5.60 mcIU/mL [facility] Urea nitrogen [Mass/Vol] 12 mg/dL Normal 5 - 21 mg/dL [facility] Urea nitrogen/Creatinine [Mass ratio] 12 mg/mg Normal 10 - 20 [facility] CMPon 09-20-2022 Albumin [Mass/Vol] 4.5 g/dL Normal 3.3-5.0 [facility] Comment on above: Performed By: #### 2 508114, 1538109, 27215101, 8698510, 43329528, 7843243, 9350044, 8869668 ####[facility] [address] [place] [address] Albumin/Globulin (S) [Mass conc ratio] 1.3 Normal 1.1-2.2 [facility] Comment on above: Performed By: #### 2 967153, 3276221, 47227813, 4031079, 93344042, 6904482, 5400640, 5204501 ####[address] [place] [address] ALP [Catalytic activity/Vol] 90 Int._Unit/L Normal 21-98 [facility] Comment on above: Performed By: #### 2 016498, 9166518, 73096095, 9543080, 02923289, 9151353, 5607371, 5978153 ####[address] [address] ALT No additional P-5'-P [Catalytic activity/Vol] 23 Int._Unit/L Normal 6-46 [facility] Comment on above: Performed By: #### 2 157022, 2311459, 44071739, 1001510, 62176091, 0884569, 2375233, 6178240 ####[facility] [address] [place] [address] Anion gap [Moles/Vol] 11 mmol/L Normal 6-16 [facility] Comment on above: Performed By: #### 2 530845, 4201479, 66073724, 5046638, 84554428, 6714909, 3292512, 3423853 ####[address] [place] [address] AST [Catalytic activity/Vol] 24 Int._Unit/L Normal 5-43 [facility] Comment on above: Performed By: #### 2 408298, 0345601, 23264668, 2005480, 70551619, 4087994, 0204264, 1338014 ####[facility] [address] [place] [address] Bilirubin [Mass/Vol] 0.7 mg/dL Normal 0.0-1.1 [facility] Comment on above: Performed By: #### 2 961256, 6961160, 90685261, 3655665, 61315113, 8790810, 9207230, 1851387 ####[facility] [address] [place] [address] Calcium [Mass/Vol] 9.8 mg/dL Normal 8.9-11.1 [facility] Comment on above: Performed By: #### 2 500529, 1264955, 41437428, 0465099, 69757161, 6341514, 5974596, 3741628 ####[facility] [address] [place] [address] Chloride [Moles/Vol] 107 mmol/L Normal 101-111 [facility] Comment on above: Performed By: #### 2 424065, 5628333, 89086638, 4878172, 87073721, 0803147, 1511110, 0925715 ####[facility] [address] [place] [address] CO2 [Moles/Vol] 21 mmol/L Normal 21-31 [facility] Comment on above: Performed By: #### 2 663680, 8721278, 90329708, 3190782, 23387772, 2869619, 0385919, 3578971 ####[facility] [address] [place] [address] Creatinine [Mass/Vol] 1.0 mg/dL Normal 0.5-1.3 [facility] Comment on above: Performed By: #### 2 903434, 0655826, 66094892, 5021932, 91918653, 9682275, 9935217, 5143758 ####[facility] [address] [place] [address] Globulin (S) [Mass/Vol] 3.4 g/dL Normal 1.4-4.0 [facility] Comment on above: Performed By: #### 2 372616, 9273965, 20139962, 7465191, 30610004, 3509143, 8955041, 6630015 ####[facility] [address] [place] [address] Glucose [Mass/Vol] 124 mg/dL Normal 55-199 [facility] Comment on above: Result Comment: If t his glucose result represents a fasting glucose, interpretation should refer to the following reference range: 55-99 mg/dL Performed By: #### 2 458414, 1612958, 94078759, 6787059, 26414939, 5443692, 5585036, 2013825 ####[facility] [address] [place] [address] Potassium [Moles/Vol] 2.9 mmol/L Low 3.5-5.3 [facility] Comment on above: Performed By: #### 2 005016, 7874839, 15672152, 5097671, 88310965, 8291425, 7203191, 0369232 ####[facility] [address] [place] [address] Protein [Mass/Vol] 7.9 g/dL High 6.0-7.8 [facility] Comment on above: Performed By: #### 2 770210, 0673319, 77064911, 6405198, 57204032, 7109871, 6328821, 7575844 ####[facility] [address] [place] [address] Sodium [Moles/Vol] 136 mmol/L Normal 135-145 [facility] Comment on above: Performed By: #### 2 459458, 0126697, 94712381, 7787797, 06147199, 6168470, 3576065, 8052572 ####[facility] [address] [place] [address] Urea nitrogen [Mass/Vol] 12 mg/dL Normal 5-21 [facility] Comment on above: Performed By: #### 2 341642, 6657554, 86517919, 2637787, 05181423, 9219786, 5126972, 5844501 ####[facility] [address] [place] [address] Urea nitrogen/Creatinine [Mass ratio] 12 No Units Normal 10-20 [facility] Comment on above: Performed By: #### 2 604696, 2849529, 64405517, 9946678, 81796501, 9041667, 0799548, 6084828 ####[facility] [address] [place] [address] Consent for Treatmenton 09-05 Consent for Treatment [id number]#[id number]:12 7 Normal [facility] HEMATOLOGYOrdered By: SYSTEM SYSTEM on 09-20-2022 [...] 6.7 E9/L Normal 2.0 - 7.5 E9/L [facility] HemeAutoSS HEMATOLOGYOrdered By: Esteban Liu on 09-20-2022 Erythrocyte distribution width (RBC) [Ratio] 12.9 % Normal 10.9 - 14.2 % [facility] Hematocrit (Bld) [Volume fraction] 44.9 % Normal 34.0 - 46.0 % [facility] Hemoglobin (Bld) [Mass/Vol] 15.7 g/dL Normal 12.0 - 16.0 gm/dL [facility] MCH (RBC) [Entitic mass] 32.2 pg Normal 27.0 - 34.0 pg [facility] MCHC (RBC) [Mass/Vol] 34.9 g/dL Normal 31.4 - 36.0 gm/dL [facility] MCV (RBC) [Entitic vol] 92.2 fL Normal 80.0 - 100.0 fL [facility] Platelet mean volume (Bld) [Entitic vol] 8.3 fL Normal 6.4 - 10.8 fL [facility] Platelets (Bld) [#/Vol] 334.0 E9/L Normal 150.0 - 500.0 E9/L [facility] RBC (Bld) [#/Vol] 4.9 E12/L Normal 4.3 - 5.9 E12/L [facility] WBC corrected for nucl RBC Auto (Bld) [#/Vol] 9.3 E9/L Normal 4.0 - 11.0 E9/L [facility] Ironon 09-20-2022 Iron [Mass/Vol] 67 microgram/dL Normal 35-153 [facility] Comment on above: Performed By: #### 2 839800, 7385718, 72204880, 1038984, 65104507, 4825463, 8917967, 1532678 ####[facility] [address] [place] [address] Lipase Levelon 09-20-2022 Lipase [Catalytic activity/Vol] 32 U/L Normal 13-58 [facility] Comment on above: Performed By: #### 2 040001, 2274209, 65626810, 9848276, 53577046, 7761456, 2291730, 9374607 ####[facility] [address] [place] [address] Physician Orderon 09-20-2022 Physician Order [id number]:1 27 Normal [facility] Thyroid IIon 09-20-2022 Free T4 index Calc [Mass/Vol] 7.55 ng/dL Normal 5.90-13.10 [facility] Comment on above: Performed By: #### 2 698807, 5002280, 35516881, 9205543, 57773709, 6655170, 6113693, 3814733 ####[facility] [address] [place] [address] T4 [Mass/Vol] 6.8 microgram/dL Normal 4.6-9.1 [facility] Comment on above: Performed By: #### 2 870296, 9547614, 65475298, 0529270, 18357174, 4256471, 0287960, 5244238 ####[facility] [address] [place] [address] T4 uptake [Mass/Vol] 44.4 % Normal 32.0-48.4 [facility] Comment on above: Performed By: #### 2 002419, 3836453, 13131531, 0839497, 41599222, 4688232, 7578321, 4633257 ####[facility] [address] [place] [address] TSH Qn 0.49 m[IU]/L Normal 0.34-5.60 [facility] Comment on above: Performed By: #### 2 703830, 5297309, 42663855, 9479017, 27857412, 1153347, 5833381, 8811777 ####[facility] [address] [place] [address] eGFRon 09-20-2022 GFR/1.73 sq M.predicted among blacks MDRD (S/P/Bld) [Vol rate/Area] mL/min/{1.73_m2} Normal >=59 [facility] Comment on above: Order Comment: Order added by Discern Expert. Result Comment: eGFR is race adjusted. AA=. Performed By: #### 2 939282, 5841528, 95510391, 5766602, 71925569, 2626690, 3449573, 3009636 ####[facility] [address] [place] [address] GFR/1.73 sq M.predicted among non-blacks MDRD (S/P/Bld) [Vol rate/Area] mL/min/{1.73_m2} Normal >=59 [facility] Comment on above: Order Comment: Order added by Discern Expert. Result Comment: Petroleum Inspector brent kidney disease could be indicated at eGFR's of less than 60 mL/min/1.73m2. Kidney failure is indicated at less than 15 mL/min/1.73m2. Performed By: #### 2 857549, 1163620, 67953218, 6087761, 75047627, 3816339, 5038558, 1666834 ####[facility] [address] [place] [address] Coding Summary.on 09-05-2022 Coding Summary. CD:[id number] Gh0bW w+PGhlYWQ+YO0GKAPxI67jjMK brA6KW7dYMA9VAPDZJFTXFS3G ZZ8qbXR3TUpjF7JdmaJx TjovcOWpCT24APu3LLC7mFdmD JmnyY8mwZYyD2c7QvEeOH60dI 65OFzaSXIlRdB9XwRomajqiSD y R2haNwXpjTEzTse+PHRhYmxlI HdpZHRoPScxMDAlJyBzdHlsZT 2vKh1dGIIaXGRjhCgqfZTqLsW j u3ryEWOpYXciPT6fnFqfL9Doz FV7UHHxi9y8Ah18vUM+PHRkIH P7uCesXKfms928QcRis9jnGLZ 3 dNRyIYtoLKZ2P06om3D5RMKlR UNyTUH7sWP9aZ8bxIsdoukhW0 PlnZLvDwE0LQP5oVHslG8czMo n tnntvX5wAjn+K38PSG1IBOELE K0ZCpt1U9JuZidukEU+PC90YW PpLF23dMDxlAMuc0pvsZv2MkA w YXYtVPA8sOkzZTaqz2JwLHWmR 06jxRNoz4D0JDKfsRzcgALpNl TxbAE2sS0wFWchkowbg4moiqv n Hqfoh6oiym10jT09P09qZRpqM YNqLTF8MVQkAIFkbKxfwy7myL 9wIi8+HKyqx7zoe1mteKi6CgD w YLZdmxWfsDlaTLC6e4MoFg73G 7HyoKhog1CiXlu3sa80hDCet2 P7zYH9ZNboTINkuH1uKQxwYeA 6 BTCgEfZvpH59oXMvFQocHo7qe NfawTdqNF5eDQTansvgCEZyoO 8tSBThtSSjzMxxKP3yWPUhyhz m s135YzScHWR1SEPyqQXgI8Aaa N2rFoZdCJRkPGRnJ3NtrGOeLR lqH377PZcpMaF4XCDisaNeL3M s GRObvQnrPzE8t8Q9Cq3Vh6Yun zxwBUK4OGtqAKVwXtYgVhOqRv H0N1BrYpl6MQWanEbkSP1lS1Z h GCUxezdbegjlsWG3VESaYMArr F42wJAiSEtxIk7kr8D6t944KY EeRSAnlV05Ik7xiGmbTJHdhXB U wD9hjuhxn7csifywVsLsWUDxD Xc3KOz5SLKqoIgaAmElMLN0Jw K4CBK9hIIxcW7coHlimaqjpH3 w Oyc+M56frZ0sQWN7LXM1tinhB ADxjiWqDZ82IW24V5CrBaeerJ FibGU+VHKqzfAfqNqgUV7zIvL j a3wou8CyMVzdD6BfEOSlSLanM at4UTHvLRD1qQA0vM1wRKPnOX dhl1O2fCY7H1UqwwPdjy6qv9n s KORuDHwfY33ffVOta4O4ZARvh CG8NBXptPjoAeKflF49Mse+PG GzeLhfk4FyTaklp7szx9ushZa 9 DhJmTHLjcjMjeHmwWQU4o7XnO i76P47wIZimCJXlNUNeOWQdYR SleTwgyl4mlF6gZh6+PGNvbCB 3 mMJ5xE6sESYbVyW3IIxhA565O sXpcLMfYnebd5fwu3vcoZg1Vv JfXTXyndPetAriXLZ4q7YxWr9 8 F72yOZrnEVBzPXAkBFJuHBXap Qrwsg1exY4ePl4+IS0an2ifiy 60uK43jOB+TIMqVLP6kOxjNKz w AKEhiH9rAWdxXyR6JTIuHgSlh X64eVRsGAsuFg6zdCmfvLiyJX 0cBQCljnkpy958VnKgv4lmAQA w mFJsAIsoDXD1U76bg8Q7JNJyM QJzKLU3eDI4sW6atAaoiyuqxJ YzbHmsabXapCggJQrfCNquH95 6 IHRvcDsnPlBhdGllbnQgTmFtZ Ec3Z4MdZmy5NVSzsQjxUN5twN GyGXavPn8mwApzgHhkBZ4fHDP p ubvhc792HoSyx8yzOTTzxHEjP CcfYJE1E13kd0S7AZHgREQaAL U1aEK9rA8plChbepgsxCLkfAt g yeEziJgdXLjtUFtlY031SNAdj XnwRqMvveAzREVaiAJ4XG05ZB 75cJUtd7F8dHU8G2IkXWEzizn t urfefZV7DSHtSBLksK52Tk6op GygTn9kITFaCMP8KQUdsMBrV7 HbfB3vDhYrWUFxQFJsG5ElzGL t PVhmU409AKqcBrG7VHLdnkKoN 5LsCYKgmBkuJbZ4a4C8La3GK2 Q4UL31FJ30pQNux0B2aMY0H6Z h NCWlrofujxppzZC5TXGeLNDsh I45Vj5biWlgYt1sQCCuJGI4RS WebZZdY7XgnS8rBjVsSSOjQAK w Z1QptOMfCTofB677YBtmXkR5O QCagnTsI4TwZSBghQxoJqG9d0 M0Dk9OUKb0YU61SJ30dYTbv7M 5 mQP4I3RrPJQqmnkghylweSH9C PTnJXOdxR91Jy9pdEreWn2yZZ XxHFO9FWLzeTFkG0XasI3uAgA j SVYuPELaA4NnkUPcOOumQ070N VxtTwB7GDJrgbKrU4TrYDOaqW wpHbP7m4I8Ou6ZYAWfVD39KEJ 5 rIG0ZH64CH00E0EiXtwxmXHdo +PHRhYmxlIHdpZHRoPScxMD ArGtFurUxnGE9xZu4xCVIwLVW v eCmuwMDsCfArn3tkFUJlGUotZ D3hlWetN0FgfUS4UUEoq0c4Se 50U62eD3SxlIL+UEIuoLX2cBN 0 zU9kWvXdGdX4VZcsK638ZvYvh CMiGvitm6ulk1bkfNe7LpI3UX FyzbNqrVwmBLU3r9XjRu95C92 s IHdpZHRoPSIxNSUiIHZhbGlnb f5twB5hLa0+AUFckFV1gBZ3nZ 6vJeVpMsD7DYldZ786BlVksRF v Ifmxl0tzc2jlzYk0UsSvYLUqn hOccQndRSF8f2VwRc34A2IzoT zhs6EmKby9sw21uWWnt4M5eVI 9 H6QlDLVmmufoeKIeeJukQB8gO DOzxkjmOBVkwP6kZGZdI7q3Lk CxUbO5ABjkI6ZwprQ2MXVsiWX g WBvgJLK4O83ha1I8WUJfPMHxY UE5rKW6cV3ylQsoyboytNRdpX cgubYopCwgSUfiLDmtU695SDP v oFifOSMrhX8mMFDqiGHoqHbcV O3sRNDubplmMpwKDBQDImmtJD 0ZAQ4JQOCTXZ42X8ItWiz3OVS z iRwxXQ5ybXLgHNtfLj8pzOrja CbuBO4qTDPhotatIWMbeO7eCH AykEJzkZutZT3gEEHslitjy85 0 HqRbVEK3ZLUqoLAfD9DwyR5yU yEbULYdTEIsF9MxaNLuJAjpP4 91VFltUmX6EMAwpmOlV0WnNGS s jXmnAzL7t2P0Zo8eJN3pRr6pM Vb2VG58WQ18vJNkm8T8eXQ0J5 PjXLKlybwbgijwpSM4FKWsTKN w qM51xZRfUVulMf4ed4D1t688H EEyFXPvjA59Ce3bjZxqNLKpdK MZeF8gkqufo1irwcnrRpTcUKX w DXw6AKp9MMCuoWyxWcLbLTD8L gW0UOQ7bSBbmF6dtOifvgaywI 9wOyc+KXHhZOEkpbK2O9OxJhx 0 WBIyhXtxXK3ffIXqTQelMw6bi KyjgVygSE8jKBBmcreuKZUegR 6gCHEuhOAxdMswZO2kVQZalpo m e159IbBfHBZ6YZGyaYWiN8Ytj J6pWaOaHBKwZDAzR4GfeHQaLB zgE413HZtaRlV5KNWgyeDdX7R s TXAztOdoFxN6h3P1Yb9ERS6tv ET6Q7OpPvp2IIAykCmsBZ9wiY LzCKxjLr1bqNprmKsuBW0eDLH p cdjpWTIruL4pEBSzfFTfaVtsG G3vIDBolbdnm700JlNhEMT6BL WdmLGbN2LfmE0nCwMcTUGtFVB w R5CmfLFmWRnsP462DQbhMiL7J SUlieQaZ8AjWLVtiUtrEgQ7w3 L4Lh1MMRpzFT8gihAtFI4xemJ 8 Y9FpVyejiME+QN10VBXdOY45h EOoyJSla1hdhRg7VeVjSIJrCT R3jOinNEjqb0KhAHRtW93dgQF w g7W3IZNkcQmnpKUiSoNxfNQ9d B0yKCupflbzd9dnaqfuGqqkw2 qtqx68vW71S52qTJiiRTLuSTG z WVZxBFHakXwaiw1dvP0yFm1+P WKjsGW7bNQ4zK3pFzUcReY6EZ urU646NeDqoQQxTtetd4icw8q k zSk8LyYaAGIrspLnuRluVME2v 9JcAb20K44lBMbnSEMaMAHkVW QqRRTgmEdith5vmJ3aQc8+PC9 j o3odru17tS39fRY+TICtXCA7m LteADxnFUSrvR9fPTstGsS6CB FxLqTweP82xJXjDTnpFg0ufMq o cFyfAA8qPYGqbrjdk284CyFft 3qfNLXlsGRnSXqfWGL1Z92do5 M3SPTfYWAvNCM9gHI8eB5ikWm n bjogbGVmdDsgdmVydGljYWwtY DddX272IAMmcJrxPnEkmGQnH7 qclaLNIX8gTtltfFF+PHRkIHN 0 nLaaMEzhTWWzcG2zEHBrM8b2M rDwHwB5PJsbC1QhviM9EHSitQ EhXZVqlPKQwX7obmzeb0tuzsl g EfTvJEGjPTf4VIa1RBSxdKryG hEkHBY4XaW4RRM0cDOqgC7cxH kykdqwjP0kSzf+RklOOjwvdGQ + PZMeMLN3sIrnLTezAHFcfU1kE LHsJ1g9DxBgHeP2MVpxA2Ddof T5DVDopPVxTSLbnSRHpX9qril j q8xafdxtNeGhQMTgLWw2HCu6M WIrwVjdZyAeZIS2QgJ2GZP4xZ RcuV1wiJadhmslvD3pEtu+TVJ O OjwvdGQ+KWZeEGX3lOvrNDoqM ITswK0yFPEiL8c7KvBmCvC5PF dfD7FvgdP5XHJrbZDeXSDtxSA U sK1bkdhri7btuvuyJzDhEZUbD Ez0JDs9SOJjtRvbFaVrJFI7Dj E5MAT7kSJxbR6ymDflghoakU7 w Oyc+WET4RSV3VK51CJ45V9PxF jwvdGFibGU+PHRhYmxlIHdpZH YeCTaeAIEwXpXqbClaIN0nRn4 y ZGVy (more content not included)... [facility] Consent for Treatmenton 08-09 Consent for Treatment [id number] [facility] Consultation Noteon 08-31-19 Consultation Note Patient: MITESH [...] labral tear. She had 2 injections at [facility] and she is giving it some time. [...] Refill(s) 0, qid and prn sob/wheezing, [id number], 160, cm, 04/27/20 22:06:00 EDT, Height/Length Dosing, 98, kg, 04/27/20 22:06:00 EDT, Weight Dosing off work: off work, See Instructions, 1 EA, 0, Patient had a procedure with our services. She should be excused from work for 10/30/21 and 10/31/21, Supply pregabalin 200 mg Cap: 200 mg = 1 cap(s), Oral, BID, X 30 day(s), # 60 cap(s), Refills(s) 2, Pharmacy: [facility]/pharmacy #[id number], 158, cm, 08/14/22 9:29:00 EST, Height/Length Dosing, 91.6, kg, 05/18/22 11:25:00 EST, Weight Dosing pregabalin 225 mg oral capsule: 225 mg = 1 cap(s), Oral, BID, # 60 cap(s), Refills(s) 2, Pharmacy: [facility]/pharmacy #[id number], 158, cm, 08/31/22 9:15:00 EST, Height/Length [...] cyst of lumbar spine / SNOMED CT [id number] / Confirmed Neuropathy / SNOMED CT 7684770947 / Confirmed Ascending aorta dilation / SNOMED CT 001056040 / Confirmed Anxiety / SNOMED CT 90248836 / Confirmed Bipolar disorder / SNOMED CT 56333525 / Confirmed Labral tear of shoulder / SNOMED CT 631393192 / Confirmed Resolved: At risk for falls / SNOMED CT 578555018 Problem added when Risk for Falls Careplan was initiated. Resolved due to patient discharge. Resolved: Migraine / SNOMED CT 07603837 Resolved: Seasonal allergies / SNOMED CT [id number] Objective Vital Signs 08/31/2022 9:06 EST Peripheral [...] motion due to pain Integumentary: Warm, Dry, Halley. Injection site well-healed Neurologic: Alert, Oriented. Psychiatric: Cooperative, Appropriate mood & affect. Impression and Plan Patient is a 42-year-old female with a past medical history significant for sacroiliitis, chronic pain, and [place] (more content not included)... [facility] Comment on above: Result Comment: Elec tronically Signed By: Ade Hennessy PA-C\.br\Date and Time Signed: 08/31/22 09:31 EST\.br\Electronically Co-Signed By: Boy Valles MD\.br\Date and Time Co-Signed: 09/11/22 14:52 EST Legal Correspondence Officeo n 08-31-2022 Legal Correspondence Office [id number]#1.00CD:1 27 [facility] Office/Clinic Note-Physician on 08-31-2022 Office/Clinic Note-Physician [id number]#1.00CD:1 27 Normal [facility] Patient Correspondenceon Patient Correspondence [id number]#1.00CD:1 27 Normal [facility] Patient Correspondence [id number]#1.00CD:1 27 Normal [facility] Patient Correspondence [id number]#1.00CD:1 27 Normal [facility] Patient History Officeon Patient History Office [id number]#1.00CD:1 27 Normal [facility] Office Visiton 08-28-2022 Follow-up visit [id number] Georgia Burgess 1980 F Date Provider Department Center 08/28/2022 [facility] No family history on file Level of Service:22851 MS OFFICE/OUTPATIENT NEW LOW MDM 30-44 MINUTES (25) Reason for Visit and Comments: Pain [136] Normal [facility] US KIDNEYSon 08-27-2022 US KIDNEYS Begin Addendum [...] kidneys and bladder was performed by the jet ski mechanic. Forming Roll Operator static images are submitted for review. FINDINGS: [...] renal calculi. 3. No hydronephrosis. Normal [facility]on SARS-CoV-2 (COVID-19) RNA JAYNE+probe Ql (Unsp spec) Not detected Normal NOT DETECTED [facility] Comment on above: Result Comment: This test is not yet approved or cleared by the [place] FDA. When there are no FDA-approved or cleared tests available, and other criteria are met, FDA can make tests available under an emergency access mechanism called an Emergency Use Authorization (EUA). The EUA for this test is supported by the [place] of Health and Human Service's (HHS's) declaration [...] L IPID, URIC, CMP, T7, TSH #### [facility] [address] [place] [address] Dr. Alejandra Crystal INFLUENZA A AND B AGon 08-16 [facility] SEE BELOW Normal [facility] Comment on above: Result Comment: Nega tive for Flu A protein angiten. Infection due to Flu A cannot be ruled out. Flu A angiten in the sample may be below the detection limit of the test. Performed By: #### O BSCRN #### [facility] [address] [place] [address] Dr. Alejandra Crystal [facility] SEE BELOW Normal [facility] Comment on above: Result Comment: Nega tive for Flu B protein antigen. Infection due to Flu B cannot be ruled out. Flu B antigen in the sample may be below the detection limit of the test. Performed By: #### O BSCRN #### [facility] [address] [place] [address] Dr. Alejandra Crystal INFLUENZA A AG Negative Normal NEGATIVE SEE COMMENT [facility] Comment on above: Performed By: #### O BSCRN #### [facility] [address] [place] [address] Dr. Alejandra Crystal INFLUENZA B AG Negative Normal NEGATIVE SEE COMMENT [facility] Comment on above: Performed By: #### O BSCRN #### [facility] [address] [place] [address] Dr. Alejandra Crystal Coding Summary.on 08-15-2022 Coding Summary. CD:[id number] Gh0bW w+PGhlYWQ+UL9IUHCmC89mgMC peV4VS5sLIE0TXRLIUIYTQF2M XQ0tyLZ2SOntL2IfzkMa CxuufVPqWZ95DNo0ZFB7jHsmU XibsE5tiHAoA9o9ZaHkEL07fJ 22RQajHDYuLlO0AxVunxeewYD y P0obJwHghJErOdm+PHRhYmxlI HdpZHRoPScxMDAlJyBzdHlsZT 8xNr9xDSCoCCFazKzwuUIqOiF j r1fhWGReJYohXE8uvLrrR2Coy UL6ARSsn8w1Cs59xTF+PHRkIH B6iSghXYzcd827HtAeu0wdWJM 3 rHWlVLjeTHJ4P19vi1C9YICfO QUxWSF8xRO3nY4hqXpousbbD5 UumBWlHgG0EFX4rAOksQ7bwFh n vuhwtL0fBwu+H67SFO9NTFYWC D1ZPio5R9BrJgkvkXR+PC90YW BjWE47vFBqtOMxj5utvUb2AiX w VPCnOJZ9bPnxNOugk7QqFWFfQ 93jcPPnx5F0DRYhlLepiCQuKo KviQZ5vO9hQSmlrtgis9rfouh n Beuvj1ofnm78oO32O31fTZfdT ZDbSVT3QGPaAHLteGdqag6ifH 9wIi8+IZvcx0xsv5kurLx5NtT w SPOxrdHwsRggZMG6u9MvOd52H 1NxqTcjs4XqYgj9ya95gIVly4 X5aOO3YYtrHDRzvV9oAUqwWkI 6 TLPnNeMxyD06uKWfVXxhJx8qn NzhnLztLB0sRJAqubdbQCQyqI 7xNKYgtEMmsAmfUM8fSDAenxb m p116JrIhEEC5MIHuxQZoQ9Kgh H0zRgYxBXFiQDNwE3XccNTdIL grB038HCiyYaY9OIIrxdYqJ8J s XIAivUiaNbN3f9T7Vh5Yn1Tgk xsaKIJ1UKemHWVoTzW6XrVmYt H9B1HlBrh5PNCvgSalWL3gD5U h YPWbtssxliqekPN6DDEfQWEzb I07vEViVBohSv0ha0G3s214MZ ObURKppB80Xr1hvLzgXCMvdRH U pA2bgwitp1prhaffObMlVZWbN Zs3PBu7WADpiPnxPbTxGBL5Ef Q2OOR0eUGnuG3plDmovaaezS1 w Oyc+U73jmU8zMHE1ISR5neppT LHuodVdLF08ZF89U2KbVgtgcL FibGU+VDXkavSxuNjcWN5bUmB j y9nvm7VwCAggN7XeQIVmWAmyC cp2SVCoULK8jRO7dP5aAOCzDZ vhn6J5wPT2R8GuaxFsdg2fj7a s CESiEHqaE42ooPDef3E0MNHol KU5XUFboRvtBeJrhA85Rpg+PG FxrFfyz9VmTtfvr5fsc8tmoDm 9 KtPoCAPfhlYmgRbfLVQ7d4HnX m63L78iOHhyXDUfREAvMKSsYD MlbVrcvd4vuO7nRn4+PGNvbCB 3 dVD0lU4uIYPpEnO4MIskF763Y eFoaYEiQihlc8dsm0bgpWc9Gt ZmEUQqozPgcOtkPXO7o2VvNp0 8 V90nLVimVHEgUQDyOXHnRJTzp Phpgf9ggI6pUl6+QQ8fn7iqao 50eJ92tET+EJZbKYG5mChrHEl w SCUfzX0tUEwbCxM0KGAmBhCvx K33wPWrHPvnIf4fwUcvxPifRD 8bJWCiztmiv647YiWty6qlPLA w vNWrHFtxYAC6J15cf4R0YZKmV JExWYB9pDZ3wB3ycBorjsqgcZ XveYbfssWphAexTZfbKRglT36 6 IHRvcDsnPlBhdGllbnQgTmFtZ Dt5M3IwNtp9PRZwbCyaUJ4rnF VlDFgiJr7kpGiqhUetJV8lYIR p rgmcz701HqUmp7xjWQBwrBNaO HyzKTT6J59jw6K4JGReGFOiZH N2hQP3bC3nfMgruafrnUNzkTk g huAslFtuYOdgPPizE304ZVHce PzbGuIfamPfUKPxbRR4UC66LK 11aPMri7Z6jWV1Z2ItHAEovyg t aeqxlLT2RMNqRHFuwH04Gh6wd HwnGf4tQQHbIZL4OALdaLYbN5 AubK2fWdItVRKlFWMqR2RttHC t LCyaA140REbfFtZ6YENgvsVqM 0CgSDMzzPzhLcZ4s5B3Lc6XL3 C7CY37BJ03jZTvb7B8kDV4T2E h SKJosokokwymsKC7RSCqVBBju A14Wx5lsZydFx1sCZGtPZS3CW VngZSzC6DftO9cYfLkWQOqLXW w P4HorQVdVVyuE373PSfiVlQ9K HUsdxMsQ6WjCQNtsHmoGaA1q0 J1By6GWNz8NJ78VX36iZWfv5W 5 lVH2R7TxZXBxwtkkxprnyVR4T OLiGWOvnZ10Wp4fvIdkBf7yVL IrASH8COMscZTdS9LhpL0qUoN j YGQoGKKhP8GxrFByVNpeE594Z KhzLoX4UOJtmvExZ4SqRXQssY zwLmV5a5I2Ug5NYQXlOK45CJH 5 nQJ1AA58CP34F7FhVeajaDDod +PHRhYmxlIHdpZHRoPScxMD SjXeMibWnzEH4wKn1pCFSjUNM v eJrvzGLmGyYnt1tzWCVjVWgfS D2cpOzpS1MozCG6XRTuo9i4Ku 89C36uA8CdpST+GVZgtAV8lUP 0 hO7hReUdCpA0RYpdZ155UfKuw LShOzdzv6qlq7pnjWd5SuR1RN IijlJfiKvbROY6y2HyDi32Z03 s IHdpZHRoPSIxNSUiIHZhbGlnb k9vcG7vHg7+HEHqvGV6wJZ9uJ 4bKoHsOaS2BMusB568DsXtwGS v Pvvns5njj3eseNv7HhBdYBLpl qEfiGrnGYA7t3SnJm47G4RjcN wiu9UfIww5st14vHUfq6Z7eKL 9 U6GcKXNroqeekEFehFssXM1vI RSiissrFZPdcW7pVOLcT5q4Yx HnBpM0KSrtI3JyskW9ZZNfgEN g KVrgUJJ0Q71qx5D4WLXqUBLlK GH5jIE8uJ0zaNmhrbcwkOFcpE yzywTujXlxLXiwPZzbU101JGQ v aQtrXYOajX0xVGPqpCEnpNxyQ T9cIZVccikeYurZPBTIVxvvJW 5SXF5LKUMEJC05X0LqQwi8SQI z oLznDJ9eeNIgMZpwWh3ayBlxg AmrRW7yCWExounrDHNgkF3jNK PwjSXvoOmtXI2tLAHmfnyzj50 0 UxFtSQD2WVStbIJnR0GytH1pC oGcCWPfLWJaU0SukQDhXYxjK3 57VQuiJvW5ODJqbhKfV7BnIGL s wTytRpK8z4E9Ju9oHN1uTn6eW Ro1CD36WV06pCWul0L8zKO7Z3 DxHXZojfoimmmgoTB7NNPzAPL w nH60bKMvYBbrLl7vc5O3p651V BUmLLQlrP95Ny1mvJigLRDrjZ TQdB8wctvtx3pbanvkPlTwUBA w DMz7IJg5VMMgcPglSqEjMTP9C wF9FSB8wMImpR3wkJmpmcfshZ 9wOyc+GCSrOUQomqW6Y0LjDxm 0 YQQrpRbrBL7tdMAxHSvtNp9hf OjxnYxdZK0gVMGuthvaOOTuxJ 4pIWYffALzkZwdRH4vHFXatmm m x887QtPpKZF7FEViuSXoR2Lec D8gPdOqWABtXXFaP0YhfBOkPY lzG843ARjfLaE5RJItldCwE5J s DSZprNajVhL2q4P1Am4EXR0vw NY1C3BmBce8DONteYbaAN1lqP DgTKkzPe8ymUjqyPrnUF9jGAE p gvlfAXKxkR8gNXNevGVrgKijT J8aXJOaoqxkp784UjLqQKR5GG PuuJFuJ9CcmM5dTwKgAMKuHZN w X3MzsNGfOPiiG601LJakIwK6H KBlcqJnA1AyUPOwkGinZcZ9d1 U6Xr4MNZddID5nvvFbDR6kevL 8 M6GkDyoolJJ+BR74RGWxPJ20n UHndIFas3fyvLi1ToTqMZRzWT A6zWgsFBscd2ZrDOCkQ55ufVA w v0I7LEReqFncsLLsOeSevEQ4c Q6wIIhblokky5qvragnWlfzc3 vyuu41eI21M60jJWsmXQQgLKO z RLPsHNHvrJhgho4zfN7aXc5+P JApuAO5vZZ9fD8mRdBzVhJ6LQ gkW082BaGulMVzLrhjx5yps1u k aAj8DjJzXGKhvmFkkRwdSQM8p 2JiHa54H54lRSjpKDPaZZJjKN NgMWSviDawpb1fnD9uZy9+PC9 j s5qdko88kN06eEG+VRFnPWL2g CrmICqpANOnoI7uZObwLyY8SW XlEvDpjQ98cQRaIXedQa5crVa o wXfuJV3pMFCunnpqd252VjFrt 6lxYJTqqNFmLYccNPY4F11zm0 G9CZRbAUNtIRG8vOG1uR5ywZq n bjogbGVmdDsgdmVydGljYWwtY ZyqC359HPKerSbsQnZdaNLdK1 bjbwFQGA2eUevvmBR+PHRkIHN 0 wUcnPHpaDDFofM5fQDRmX9s8B bAsEeC8TTtoE6NdeeB8MVTysY GsZBIzkMVIsC9pcuuuc3tnopi g YwExTPArPKe1DQt1ZLMopBjcI vIvRJY0HgI8YFJ8hRHnkE0zcY gvolbquL2kHlj+RklOOjwvdGQ + JEHhVEU0xHidFRgeKCEotP8hO NBkZ6n8QtXxIhQ7LTyzM4Ucdw K1ROUzdKBlBDZvjSHUcV4sbwq j n4wdbgtvPrRrGLWbLCx3YCa9X HVihKusPlFkGKN7YmP3RLY4oS ZvwM3waGtzocxxwB8sOcd+TVJ O OjwvdGQ+YIIkXOC8cTahAZivC SSvsC7tTWYtV9r8MkHzNzJ4OR wzJ9LeurG0WHCrlPNhOEQbpRF U wT6jqhpnu5osabxmPvWcIKNsG Zr0JRc3MVXaiIkmXfAwJFX6Mr V4EML1hYNwcP7idBvklllkkB8 w Oyc+RLT8UAT0TU33KZ42Q8IvH jwvdGFibGU+PHRhYmxlIHdpZH EbTUdhMYZsSmDpcQbwNH6rEx6 y ZGVy (more content not included)... [facility] Consent for Procedure/Surger yon 08-14-2022 Consent for Procedure/Surgery [id number]#1.00CD:1 27 [facility] Consent for Treatmenton Consent for Treatment [id number]#1.00CD:1 27 [facility] Discharge Instructionson Discharge Instructions [id number]#1.00CD:1 27 [facility] IntraOperative Documentson 0 08-14-2022 IntraOperative Documents [id number]#1.00CD:1 27 [facility] Main OR Intraoperative Recor don 08-14-2022 Main OR Intraoperative Record IntraOp Document Type FTPM Summary Primary Physician: Boy Valles MD Finalized Date/Time: 08/14/22 10:10:24 Pt. Name: MITESH BURGESS/Sex: 1980 Female Med Rec #: [id number] Physician: Boy Valles MD Financial #: [id number] Pt. Type: P Room/Bed: / Admit/Disch: 08/14/22 08:49:32 - Institution: Case Times FTPM Entry 1 Patient Times In Room 08/14/22 10:04:00 Out Room 08/14/22 10:10:00 Procedure Times Start 08/14/22 10:07:00 Stop 08/14/22 10:09:00 Anesthesia Times Last Modified By: Francheska Benton RN 08/14/22 10:10:16 Case Attendance FTPM Entry 1 Entry 2 Entry 3 Case Attendee Hai JAY, Boy Valles MD, Boy Pires RN, Brandi Jimmie Role Performed Surgeon - Primary Surgeon - Primary Staff - Other Time In 08/14/22 10:04:00 08/14/22 10:04:00 08/14/22 10:04:00 Time Out 08/14/22 10:10:00 08/14/22 10:10:00 08/14/22 10:10:00 Procedure TRANSFORAMINAL EPIDURAL TRANSFORAMINAL EPIDURAL TRANSFORAMINAL EPIDURAL STEROID INJECTIO(Left) STEROID INJECTIO(Left) STEROID INJECTIO(Left) Comments Dr Michelle-student Last Modified By: Chetan DOUGLAS, Francheska Benton RN, Francheska Benton RN, Francheska Watson 08/14/22 10:10:17 08/14/22 10:10:17 08/14/22 10:10:17 Entry 4 Entry 5 Entry 6 Case Attendee Chetan DOUGLAS, Francheska Webber RN, Hanh Ontiveros Role Performed Assistant Professor Of 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 - Primary Scrub - Primary Independent Jeweler Time In 08/14/22 10:04:00 08/14/22 10:04:00 08/14/22 10:04:00 Time Out 08/14/22 10:10:00 08/14/22 10:10:00 08/14/22 10:10:00 Procedure TRANSFORAMINAL EPIDURAL TRANSFORAMINAL EPIDURAL TRANSFORAMINAL EPIDURAL STEROID INJECTIO(Left) STEROID INJECTIO(Left) STEROID INJECTIO(Left) Comments Last Modified By: Chetan DOUGLAS, Francheska Benton RN, Francheska Benton RN, Francheska Watson 08/14/22 10:10:17 08/14/22 10:10:17 08/14/22 10:10:17 Perioperative [...] X-ray Applicable) PreOp Antibiotic No Time Out Chetan DOUGLAS, Francheska Watson, Given Participants Akbar DOUGLAS, Hai Hernandez MD, Amy Matamoros Amy, Pritchard RN, Brandi Samuel Time Out [...] L4/5 TFESI Primary Procedure Yes Primary Surgeon Hai JAY, Boy Wilson Start 08/14/22 10:07:00 Stop 08/14/22 10:09:00 Anesthesia [...] and tissue Entry 1 Skin Integrity Intact, Halley, Warm, and Skin Abnormality No Dry Outcomes [...] EPIDURAL Fabricio (more content not included)... Normal [facility] Main OR Preoperative Recordo n 08-14-2022 Main OR Preoperative Record Holding Area Document Type FTPM Summary Primary Physician: Boy Valles MD Finalized Date/Time: 08/14/22 09:29:11 Pt. Name: MITESH BURGESS /Sex: 1980 Female Med Rec #: [id number] Physician: Boy Valles MD Financial #: [id number] Pt. Type: P Room/Bed: / Admit/Disch: 08/14/22 [...] By: Marybeth Melgar RN 08/14/22 09:29 Normal [facility] Operative Reporton 3 Operative Report Patient: MITESH BURGESS Age: 42 [...] Respiratory Rate 12 br/min LOW . 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-14-2022 Radiology Outside Office Copy [id number]#1.00CD:1 27 Normal [facility] Radiology Outside Office Copy [id number]#1.00CD:1 27 Normal [facility] MRI SHOULDER LT WO CONon MRI [...] by: CHAY MENDOZA Date: 2022-08-13 15:18 Normal [facility] XR ARTHRO SHOULDER LTon 02 XR ARTHRO SHOULDER LT EXAMINATION: XR AR [...] by: CHAY MENDOZA Date: 2022-08-13 15:07 Normal [facility]on 05-10 SARS-CoV-2 (COVID-19) RNA JAYNE+probe Ql (Unsp spec) Not detected Normal NOT DETECTED [facility] Comment on above: Result Comment: This test is not yet approved or cleared by the [place] FDA. When there are no FDA-approved or cleared tests available, and other criteria are met, FDA can make tests available under an emergency access mechanism called an Emergency Use Authorization (EUA). The EUA for this test is supported by the [place] of Health and Human Service's (HHS's) declaration [...] L IPID, URIC, CMP, T7, TSH #### [facility] [address] [place] [address] Dr. Alejandra Crystal INFLUENZA A AND B AGon 06-06 [facility] Normal [facility] Comment on above: Result Comment: Nega tive for Flu A protein angiten. Infection due to Flu A cannot be ruled out. Flu A angiten in the sample may be below the detection limit of the test. Performed By: #### I NFLUAB #### [facility] [address] [place] [address] Dr. Alejandra Crystal INFLUBNEG SEE BELOW Normal [facility] Comment on above: Result Comment: Nega tive for Flu B protein antigen. Infection due to Flu B cannot be ruled out. Flu B antigen in the sample may be below the detection limit of the test. Performed By: #### I NFLUAB #### [facility] [address] [place] [address] Dr. Alejandra Crystal INFLUENZA A AG Negative Normal NEGATIVE SEE COMMENT [facility] Comment on above: Performed By: #### I NFLUAB #### [facility] [address] [place] [address] Dr. Alejandra Crystal INFLUENZA B AG Negative Normal NEGATIVE SEE COMMENT [facility] Comment on above: Performed By: #### I NFLUAB #### [facility] [address] [place] [address] Dr. Alejandra Crystal INTERNAL CONTROLS Within Normal Limits Normal Wi thin Normal Limits [facility] Comment on above: Performed By: #### I NFLUAB #### [facility] [address] [place] [address] Dr. Alejandra Crystal MRI ABDOMEN WO W [...] CHAY MENDOZA Date: 2022-05-31 09:57 Normal [facility] INSULINon 05-30-2022 Insulin 23.8 uIU/mL Normal 2.6-24.9 [facility] Comment on above: Performed By: #### I NSULIN #### [facility] [address] [place] [address] Dr. Alejandra Crystal CBC AUTO DIFFon 05-29-2022 BASO # 0.0 103/ul Normal 0.0-0.1 [facility] Comment on above: Performed By: #### C BC #### [facility] [address] [place] [address] Dr. Alejandra Crystal Basophils/100 WBC (Bld) 0.6 % Normal 0.2-2.0 [facility] Comment on above: Performed By: #### C BC #### [facility] [address] [place] [address] Dr. Alejandra Crystal EO # 0.1 103/ul Normal 0.0-0.7 [facility] Comment on above: Performed By: #### C BC #### [facility] [address] [place] [address] Dr. Alejandra Crystal Eosinophils/100 WBC (Bld) 1.3 % Normal 0.9-7.0 [facility] Comment on above: Performed By: #### C BC #### [facility] [address] [place] [address] Dr. Alejandra Crystal Erythrocyte distribution width (RBC) [Ratio] 12.5 % Normal 11.0-15.0 [facility] Comment on above: Performed By: #### C BC #### [facility] [address] [place] [address] Dr. Alejandra Crystal Hematocrit (Bld) [Volume fraction] 41.2 % Normal 36.0-48.0 [facility] Comment on above: Performed By: #### C BC #### [facility] [address] [place] [address] Dr. Alejandra Crystal Hemoglobin (Bld) [Mass/Vol] 14.4 g/dL Normal 12.0-16.0 [facility] Comment on above: Performed By: #### C BC #### [facility] [address] [place] [address] Dr. Alejandra Crystal IG # 0.02 10e3/ul Normal 0.00-0.03 [facility] Comment on above: Performed By: #### C BC #### [facility] [address] [place] [address] Dr. Alejandra Crystal IG % 0.3 % Normal 0.0-0.5 [facility] Comment on above: Performed By: #### C BC #### [facility] [address] [place] [address] Dr. Alejandra Crystal LYMPH # 2.1 103/ul Normal 1.2-3.8 [facility] Comment on above: Performed By: #### C BC #### [facility] [address] [place] [address] Dr. Alejandra Crystal Lymphocytes/100 WBC (Bld) 32.5 % Normal 20.5-60.0 [facility] Comment on above: Performed By: #### C BC #### [facility] [address] [place] [address] Dr. Alejandra Crystal MANUAL DIFF REQ NO Normal [facility] Comment on above: Performed By: #### C BC #### [facility] [address] [place] [address] Dr. Alejandra Crystal MCH (RBC) [Entitic mass] 32.1 pg Normal 26.7-34.0 [facility] Comment on above: Performed By: #### C BC #### [facility] [address] [address] [address] Alejandra Crystal MCHC (RBC) [Mass/Vol] 35.0 g/dL Normal 29.9-35.2 [facility] Comment on above: Performed By: #### C BC #### [facility] [address] [place] [address] Dr. Alejandra Crystal MCV (RBC) [Entitic vol] 91.8 fL Normal 81.0-99.0 [facility] Comment on above: Performed By: #### C BC #### [facility] [address] [place] [address] Dr. Alejandra Crystal MONO # 0.6 103/ul Normal 0.3-0.8 [facility] Comment on above: Performed By: #### C BC #### [facility] [address] [place] [address] Dr. Alejandra Crystal Monocytes/100 WBC (Bld) 8.6 % Normal 1.7-12.0 [facility] Comment on above: Performed By: #### C BC #### [facility] [address] [place] [address] Dr. Alejandra Crystal NEUT # 3.6 103/ul Normal 1.4-6.5 [facility] Comment on above: Performed By: #### C BC #### [facility] [address] [place] [address] Dr. Alejandra Crystal Neutrophils/100 WBC (Bld) 56.7 % Normal 43.0-75.0 [facility] Comment on above: Performed By: #### C BC #### [facility] [address] [place] [address] Dr. Alejandra Crystal Platelet mean volume (Bld) [Entitic vol] 9.4 fL Critically low 9.5-13.5 [facility] Comment on above: Performed By: #### C BC #### [facility] [address] [address] [address] Alejandra Crystal PLT 294 103/ul Normal 150-450 [facility] Comment on above: Performed By: #### C BC #### [facility] [address] [address] [address] Alejandra Crystal RBC 4.49 106/ul Normal 4.20-5.40 [facility] Comment on above: Performed By: #### C BC #### [facility] [address] [address] [address] Alejandra Crystal WBC 6.4 103/ul Normal 4.0-11.0 [facility] Comment on above: Performed By: #### C BC #### [facility] [address] [place] [address] Dr. Alejandra Crystal FREE THYROXINE INDEX T7on FTI 1.78 Normal 1.30-4.50 [facility] Comment on above: Performed By: #### L IPID, URIC, CMP, T7, TSH #### [facility] [address] [place] [address] Dr. Alejandra Crystal T3U 33.0 % Normal 30.0-39.0 [facility] Comment on above: Performed By: #### L IPID, URIC, CMP, T7, TSH #### [facility] [address] [place] [address] Dr. Alejandra Crystal T4 [Mass/Vol] 5.40 ug/dL Normal 4.80-13.90 [facility] Comment on above: Performed By: #### L IPID, URIC, CMP, T7, TSH #### [facility] [address] [place] [address] Dr. Alejandra Crystal GLYCOHEMOGLOBIN A1Con 2021 ADA RECOMMENDATION SEE BELOW Normal [facility] Comment on above: Result Comment: ADA RECOMMENDED LIMIT 4.0 - 6.0 ADA THERAPEUTIC TARGET < 7.0 ACTION SUGGESTED > 7.0 Performed By: #### O BSCRN #### [facility] [address] [place] [address] Dr. Alejandra Crystal Glucose [Mass/Vol] 94 mg/dL Normal [facility] Comment on above: Performed By: #### O BSCRN #### [facility] [address] [address] [address] Alejandra Crystal HbA1c (Bld) [Mass fraction] 4.9 % Normal 4.5-6.2 [facility] Comment on above: Performed By: #### O BSCRN #### [facility] [address] [address] [address] Alejandra Crystal IRONon 05-29-2022 Iron [Mass/Vol] 74.0 ug/dL Normal 50.0-170.0 [facility] Comment on above: Performed By: #### I NFLUAB #### [facility] [address] [address] [address] Alejandra Crystal LIPID PROFILEon 05-29-2022 CHOL-HDL RATIO NORM SEE BELOW Normal [facility] Comment on above: Result Comment: 3.3 - 4.4 LOW RISK 4.4 - 7.1 AVERAGE RISK 7.1 - 11.0 MODERATE RISK >11.0 HIGH RISK Performed By: #### L IPID, URIC, CMP, T7, TSH #### [facility] [address] [address] [address] Alejandra Crystal Cholesterol [Mass/Vol] 127 mg/dL Normal <=200 [facility] Comment on above: Performed By: #### L IPID, URIC, CMP, T7, TSH #### [facility] [address] [address] [address] Alejandra Crystal Cholesterol in HDL [Mass/Vol] 33 mg/dL Critically low 40-60 [facility] Comment on above: Performed By: #### L IPID, URIC, CMP, T7, TSH #### [facility] [address] [address] [address] Alejandra Crystal Cholesterol in LDL [Mass/Vol] 60.4 mg/dL Normal [facility] Comment on above: Performed By: #### L IPID, URIC, CMP, T7, TSH #### [facility] [address] [address] [address] Alejadnra Crystal Cholesterol.total/Cho lesterol in HDL [Mass ratio] 3.8 {ratio} Normal [facility] Comment on above: Performed By: #### L IPID, URIC, CMP, T7, TSH #### [facility] [address] [address] [address] Alejandra Crystal HDL NORMAL > or = 60 mg/dl - LO W CARDIOVASCULAR RISK <40 mg/dl - HIGH CARDIOVASCULAR RISK Normal [facility] Comment on above: Performed By: #### L IPID, URIC, CMP, T7, TSH #### [facility] [address] [address] [address] Alejandra Crystal LDL CALC NORMAL SEE BELOW Normal [facility] Comment on above: Result Comment: <100 mg/dl OPTIMAL 100 - 129 mg/dl NEAR OR ABOVE OPTIMAL 130 - 159 mg/dl BORDERLINE HIGH 160 - 189 mg/dl HIGH >190 mg/dl VERY HIGH Performed By: #### L IPID, URIC, CMP, T7, TSH #### [facility] [address] [address] [address] Alejandra Crystal Triglyceride [Mass/Vol] 168 mg/dL Critically high <=150 [facility] Comment on above: Performed By: #### L IPID, URIC, CMP, T7, TSH #### [facility] [address] [address] [address] Alejandra Crystal VLDL CALC 33.6 mg/dL Normal [facility] Comment on above: Performed By: #### L IPID, URIC, CMP, T7, TSH #### [facility] [address] [address] [address] Alejandra Crystal PROF 14(COMP METB)on 022 Albumin [Mass/Vol] 3.8 g/dL Normal 3.4-5.0 [facility] Comment on above: Performed By: #### L IPID, URIC, CMP, T7, TSH #### [facility] [address] [place] [address] Dr. Alejandra Crystal Albumin/Globulin [Mass ratio] 1.2 {ratio} Normal [facility] Comment on above: Performed By: #### L IPID, URIC, CMP, T7, TSH #### [facility] [address] [address] [address] Alejandra Crystal ALP [Catalytic activity/Vol] 111 U/L Normal 46-116 [facility] Comment on above: Performed By: #### L IPID, URIC, CMP, T7, TSH #### [facility] [address] [address] [address] Alejandra Crystal ALT [Catalytic activity/Vol] 18 U/L Normal 14-59 [facility] Comment on above: Performed By: #### L IPID, URIC, CMP, T7, TSH #### [facility] [address] [place] [address] Dr. Alejandra Crystal Anion gap [Moles/Vol] 14.9 mmol/L Normal [facility] Comment on above: Performed By: #### L IPID, URIC, CMP, T7, TSH #### [facility] [address] [place] [address] Dr. Alejandra Crystal AST [Catalytic activity/Vol] 11 U/L Critically low 15-37 [facility] Comment on above: Performed By: #### L IPID, URIC, CMP, T7, TSH #### [facility] [address] [place] [address] Dr. Alejandra Crystal Bilirubin [Mass/Vol] 0.3 mg/dL Normal 0.2-1.0 [facility] Comment on above: Performed By: #### L IPID, URIC, CMP, T7, TSH #### [facility] [address] [place] [address] Dr. Alejandra Crystal Calcium [Mass/Vol] 8.9 mg/dL Normal 8.5-10.1 [facility] Comment on above: Performed By: #### L IPID, URIC, CMP, T7, TSH #### [facility] [address] [place] [address] Dr. Alejandra Crystal Chloride [Moles/Vol] 107 mmol/L Normal 98-107 [facility] Comment on above: Performed By: #### L IPID, URIC, CMP, T7, TSH #### [facility] [address] [place] [address] Dr. Alejandra Crystal CO2 [Moles/Vol] 22.3 mmol/L Normal 21.0-32.0 [facility] Comment on above: Performed By: #### L IPID, URIC, CMP, T7, TSH #### [facility] [address] [place] [address] Dr. Alejandra Crystal Creatinine [Mass/Vol] 0.82 mg/dL Normal 0.55-1.02 [facility] Comment on above: Performed By: #### L IPID, URIC, CMP, T7, TSH #### [facility] [address] [address] [address] Alejandra Crystal EGFR-AF ITALIAN >60 Normal >=60 [facility] Comment on above: Performed By: #### L IPID, URIC, CMP, T7, TSH #### [facility] [address] [place] [address] Dr. Alejandra Crystal EGFR-NON AF ITALIAN >60 Normal >=60 [facility] Comment on above: Performed By: #### L IPID, URIC, CMP, T7, TSH #### [facility] [address] [address] [address] Alejandra Crystal Globulin (S) [Mass/Vol] 3.3 g/dL Normal [facility] Comment on above: Performed By: #### L IPID, URIC, CMP, T7, TSH #### [facility] [address] [place] [address] Dr. Alejandra Crystal Glucose [Mass/Vol] 91 mg/dL Normal 74-106 [facility] Comment on above: Performed By: #### L IPID, URIC, CMP, T7, TSH #### [facility] [address] [place] [address] Dr. Alejandra Crystal Potassium [Moles/Vol] 4.2 mmol/L Normal 3.5-5.1 [facility] Comment on above: Performed By: #### L IPID, URIC, CMP, T7, TSH #### [facility] [address] [place] [address] Dr. Alejandra Crystal Protein [Mass/Vol] 7.1 g/dL Normal 6.4-8.2 [facility] Comment on above: Performed By: #### L IPID, URIC, CMP, T7, TSH #### [facility] [address] [place] [address] Dr. Alejandra Crystal Sodium [Moles/Vol] 140 mmol/L Normal 136-145 [facility] Comment on above: Performed By: #### L IPID, URIC, CMP, T7, TSH #### [facility] [address] [place] [address] Dr. Alejandra Crystal Urea nitrogen [Mass/Vol] 14.0 mg/dL Normal 7.0-18.0 [facility] Comment on above: Performed By: #### L IPID, URIC, CMP, T7, TSH #### [facility] [address] [place] [address] Dr. Alejandra Crystal Urea nitrogen/Creatinine [Mass ratio] 17.1 mg/mg Normal [facility] Comment on above: Performed By: #### L IPID, URIC, CMP, T7, TSH #### [facility] [address] [place] [address] Dr. Alejandra Crsytal TSHon 05-29-2022 TSH 0.767 uIU/mL Normal 0.358-3.740 [facility] Comment on above: Performed By: #### L IPID, URIC, CMP, T7, TSH #### [facility] [address] [place] [address] Dr. Alejandra Crystal URIC ACID SERUMon 05-29-2022 Urate [Mass/Vol] 3.4 mg/dL Normal 2.6-6.0 [facility] Comment on above: Performed By: #### L IPID, URIC, CMP, T7, TSH #### [facility] [address] [place] [address] Dr. Alejandra Crystal VITAMIN D 25 OHon 05-29-2022 VIT D 25-OH 16.2 ng/mL Normal [facility] Comment on above: Performed By: #### I NFLUAB #### [facility] [address] [place] [address] Dr. Alejandra Crystal VIT D RANGES SEE BELOW Normal [facility] Comment on above: Result Comment: <20 ng/mL Vit D deficient 20 - <30 ng/mL Vit D insufficient 30 - 100 ng/mL Vit D sufficient >100 ng/mL Potential Toxicity Performed By: #### I NFLUAB #### [facility] [id number] Alejandra Crystal MRI BRAIN WO W [...] are clear. The flow voids of the [place] of [place] are visualized, implying that the [...] TEZ CUBA Date: 2022-05-17 23:20 Normal [facility] US SINGLE QUAD RT UPPERon US SINGLE [...] by: LETY TAN Date: 2022-05-15 14:53 Normal [facility] COAGULATIONOrdered By: Nacho Mcguire on 04-23-2022 aPTT [...] (Throat) Negative (04/23/22 5:25 PM) Normal Negative [facility] Influenzae A Ag Negative (04/23/22 5:22 PM) Normal Negative [facility] Influenzae B Ag Negative (04/23/22 5:22 PM) Normal Negative [facility] CHEMISTRYOrdered By: SYSTEM SYSTEM on 04-11-2022 Anion gap [Moles/Vol] 9 mmol/L Normal 6 - 16 mEq/L [facility] Remisol Calcium [Mass/Vol] 8.5 mg/dL Low 8.9 - 11. 1 mg/dL [facility] Remisol Chloride [Moles/Vol] 110 mmol/L Normal 101 - 1 11 mmol/L [facility] Remisol CO2 [Moles/Vol] 20 mmol/L Low 21 - 31 mmol/L [facility] Remisol Creatinine [Mass/Vol] 0.9 mg/dL Normal 0.5 - 1.3 mg/dL [facility] Remisol GFR/1.73 sq M.predicted among blacks MDRD (S/P/Bld) [Vol rate/Area] mL/min/1.73 m2 Normal >=59mL/min/ 1.73 m2 [facility] Chem S GFR/1.73 sq M.predicted among non-blacks MDRD (S/P/Bld) [Vol rate/Area] mL/min/1.73 m2 Normal >=59mL/min/ 1.73 m2 [facility] Chem S Glucose [Mass/Vol] 102 mg/dL Normal 55 - 199 mg/dL [facility] Remisol Potassium [Moles/Vol] 3.6 mmol/L Normal 3.5 - 5.3 mmol/L [facility] Remisol Sodium [Moles/Vol] 135 mmol/L Normal 135 - 145 mmol/L [facility] Remisol Urea nitrogen [Mass/Vol] 12 mg/dL Normal 5 - 21 mg/dL [facility] Remisol Urea nitrogen/Creatinine [Mass ratio] 13 mg/mg Normal 10 - 20 [facility] Remisol CHEMISTRYOrdered By: Lab ROP User on 04-11-2022 Glucose [Mass/Vol] 123 mg/dL High 55 - 99 mg/dL [facility] POC Subsection Comment on above: Result Comment: Madelaine toro RN/ POC Device SN [id number] Invalid Interpretation Code [facility] POC Subsection POC User ID [id number] Invalid Interpretation Code [facility] POC Subsection POC Username CHELE MENDOZA Invalid Interpretation Code [facility] POC Subsection HEMATOLOGYOrdered By: SYSTEM SYSTEM on 04-11-2022 Basophils/100 WBC (Bld) 0.8 % Normal 0.0 - 2.0 % [facility] HemeAutoSS Basophils/Leukocytes Auto (Bld) [Pure # fraction] [...] 260.0 E9/L Normal 150.0 - 500.0 E9/L [facility] HemeAutoSS RBC (Bld) [#/Vol] 4.4 E12/L Normal 4.3 - 5.9 E12/L [facility] HemeAutoSS WBC corrected for nucl RBC Auto (Bld) [#/Vol] 8.1 E9/L Normal 4.0 - 11.0 E9/L [facility] HemeAutoSS CT HEAD WO W CONon 2 CT HEAD WO W CON Begin Addendum # 1 The left cerebellar tonsil lies below the foramen magnum, the exact level cannot be determined as this extends off the image [id number]. IMPRESSION: Low lying left cerebellar tonsil Original [...] abnormal postcontrast enhancement Limited exam with poor lunhar-pp-rzuyj ratio, this is particularly on the postcontrast images IMPRESSION: Limited exam, no acute abnormality observed Normal [facility] CBC AUTO DIFFon 03-29-2022 BASO # 0.0 103/ul Normal 0.0-0.1 [facility] Comment on above: Performed By: #### C BC #### [facility] [address] [address] [address] Alejandra Crystal Basophils/100 WBC (Bld) 0.4 % Normal 0.2-2.0 [facility] Comment on above: Performed By: #### C BC #### [facility] [address] [place], [place] [address] Dr. Alejandra Crystal EO # 0.0 103/ul Normal 0.0-0.7 [facility] Comment on above: Performed By: #### C BC #### [facility] [address] [address] [address] Alejandra Crystal Eosinophils/100 WBC (Bld) 0.6 % Critically low 0.9-7.0 [facility] Comment on above: Performed By: #### C BC #### [facility] [address] [place] [address] Dr. Alejandra Crystal Erythrocyte distribution width (RBC) [Ratio] 13.0 % Normal 11.0-15.0 [facility] Comment on above: Performed By: #### C BC #### [facility] [address] [place] [address] Dr. Alejandra Crystal Hematocrit (Bld) [Volume fraction] 42.0 % Normal 36.0-48.0 [facility] Comment on above: Performed By: #### C BC #### [facility] [address] [place] [address] Dr. Alejandra Crystal Hemoglobin (Bld) [Mass/Vol] 14.3 g/dL Normal 12.0-16.0 [facility] Comment on above: Performed By: #### C BC #### [facility] [address] [place] [address] Dr. Alejandra Crystal IG # 0.04 10e3/ul Critically high 0.00-0.03 [facility] Comment on above: Performed By: #### C BC #### [facility] [address] [place] [address] Dr. Alejandra Crystal IG % 0.6 % Critically high 0.0-0.5 [facility] Comment on above: Performed By: #### C BC #### [facility] [address] [place] [address] Dr. Alejandra Crystal LYMPH # 2.5 103/ul Normal 1.2-3.8 [facility] Comment on above: Performed By: #### C BC #### [facility] [address] [place] [address] Dr. Alejandra Crystal Lymphocytes/100 WBC (Bld) 34.9 % Normal 20.5-60.0 [facility] Comment on above: Performed By: #### C BC #### [facility] [address] [place] [address] Dr. Alejandra Crystal MANUAL DIFF REQ NO Normal [facility] Comment on above: Performed By: #### C BC #### [facility] [address] [place] [address] Dr. Alejandra Crystal MCH (RBC) [Entitic mass] 31.4 pg Normal 26.7-34.0 [facility] Comment on above: Performed By: #### C BC #### [facility] [address] [place] [address] Dr. Alejandra Crystal MCHC (RBC) [Mass/Vol] 34.0 g/dL Normal 29.9-35.2 [facility] Comment on above: Performed By: #### C BC #### [facility] [address] [place] [address] Dr. Alejandra Crystal MCV (RBC) [Entitic vol] 92.1 fL Normal 81.0-99.0 [facility] Comment on above: Performed By: #### C BC #### [facility] [address] [place] [address] Dr. Alejandra Crystal MONO # 0.6 103/ul Normal 0.3-0.8 [facility] Comment on above: Performed By: #### C BC #### [facility] [address] [place] [address] Dr. Alejandra Crystal Monocytes/100 WBC (Bld) 8.7 % Normal 1.7-12.0 [facility] Comment on above: Performed By: #### C BC #### [facility] [address] [place] [address] Dr. Alejandra Crystal NEUT # 4.0 103/ul Normal 1.4-6.5 [facility] Comment on above: Performed By: #### C BC #### [facility] [address] [place] [address] Dr. Alejandra Crytsal Neutrophils/100 WBC (Bld) 54.8 % Normal 43.0-75.0 [facility] Comment on above: Performed By: #### C BC #### [facility] [address] [place] [address] Dr. Alejandra Crystal Platelet mean volume (Bld) [Entitic vol] 9.8 fL Normal 9.5-13.5 [facility] Comment on above: Performed By: #### C BC #### [facility] [address] [place] [address] Dr. Alejandra Crystal PLT 274 103/ul Normal 150-450 [facility] Comment on above: Performed By: #### C BC #### [facility] [address] [place] [address] Dr. Alejandra Crystal RBC 4.56 106/ul Normal 4.20-5.40 [facility] Comment on above: Performed By: #### C BC #### [facility] [address] [place] [address] Dr. Alejandra Crystal WBC 7.2 103/ul Normal 4.0-11.0 [facility] Comment on above: Performed By: #### C BC #### [facility] [address] [place] [address] Dr. Alejandra Crystal ER URINE PROFILEon 2 Bilirubin Ql (U) Negative Normal NEGATIVE [facility] Comment on above: Performed By: #### O BSCRN #### [facility] [address] [place] [address] Dr. Alejandra Crystal Clarity (U) CLEAR Normal CLEAR [facility] Comment on above: Performed By: #### O BSCRN #### [facility] [address] [place] [address] Dr. Alejandra Crystal Color (U) YELLOW Normal YELLOW [facility] Comment on above: Performed By: #### O BSCRN #### [facility] [address] [place] [address] Dr. Alejandra Crystal ERUMARGIE A micrscopic examina tion will be performed if indicated. Normal [facility] Comment on above: Performed By: #### O BSCRN #### [facility] [address] [place] [address] Dr. Alejandra Crystal Glucose Ql (U) Negative Normal NEGATIVE [facility] Comment on above: Performed By: #### O BSCRN #### [facility] [address] [address] [address] Alejandra Crystal Hemoglobin Ql (U) Negative Normal NEGATIVE [facility] Comment on above: Performed By: #### O BSCRN #### [facility] [address] [place] [address] Dr. Alejandra Crystal Ketones Ql (U) Negative Normal NEGATIVE [facility] Comment on above: Performed By: #### O BSCRN #### [facility] [address] [place] [address] Dr. Alejandra Crystal LEUKOCYTES Negative Normal NEGATIVE [facility] Comment on above: Performed By: #### O BSCRN #### [facility] [address] [place] [address] Dr. Alejandra Crystal Nitrite Ql (U) Negative Normal NEGATIVE [facility] Comment on above: Performed By: #### O BSCRN #### [facility] [address] [place] [address] Dr. Alejnadra Crystal pH (U) 6.0 [pH] Normal 5-9 [facility] Comment on above: Performed By: #### O BSCRN #### [facility] [address] [place] [address] Dr. Alejandra Crystal SPEC GRAVITY >=1.030 Abnormal 1.005-<=1.0 25 [facility] Comment on above: Performed By: #### O BSCRN #### [facility] [address] [place] [address] Dr. Alejandra Crystal UA PROTEIN Negative Normal NEGATIVE/ TRACE [facility] Comment on above: Performed By: #### O BSCRN #### [facility] [address] [place] [address] Dr. Alejandra Crystal UR MICRO IND NOT INDICATED Normal [facility] Comment on above: Performed By: #### O BSCRN #### [facility] [address] [place] [address] Dr. Alejandra Crystal Urobilinogen Qn (U) 0.2 {Ernst'U}/dL Normal 0.2 - 1. 0 [facility] Comment on above: Performed By: #### O BSCRN #### [facility] [address] [place] [address] Dr. Alejandra Crystal MAGNESIUMon 03-29-2022 Magnesium [Mass/Vol] 2.1 mg/dL Normal 1.8-2.4 [facility] Comment on above: Performed By: #### I NFLUAB #### [facility] [address] [place] [address] Dr. Alejandra Crystal PREG HCG QUALon 03-29-2022 , QUAL Negative Normal NEGATIVE [facility] Comment on above: Performed By: #### I NSULIN #### [facility] [address] [place] [address] Dr. Alejandra Crystal PROF 14(COMP METB)on 022 Albumin [Mass/Vol] 3.7 g/dL Normal 3.4-5.0 [facility] Comment on above: Performed By: #### I NFLUAB #### [facility] [address] [place] [address] Dr. Alejandra Crystal Albumin/Globulin [Mass ratio] 1.2 {ratio} Normal [facility] Comment on above: Performed By: #### I NFLUAB #### [facility] [address] [place] [address] Dr. Alejandra Crystal ALP [Catalytic activity/Vol] 120 U/L Critically high 46-116 [facility] Comment on above: Performed By: #### I NFLUAB #### [facility] [address] [place] [address] Dr. Alejandra Crystal ALT [Catalytic activity/Vol] 23 U/L Normal 14-59 [facility] Comment on above: Performed By: #### I NFLUAB #### [facility] [address] [place] [address] Dr. Alejandra Crystal Anion gap [Moles/Vol] 12.6 mmol/L Normal [facility] Comment on above: Performed By: #### I NFLUAB #### [facility] [address] [place] [address] Dr. Alejandra Crystal AST [Catalytic activity/Vol] 14 U/L Critically low 15-37 [facility] Comment on above: Performed By: #### I NFLUAB #### [facility] [address] [place] [address] Dr. Alejandra Crystal Bilirubin [Mass/Vol] 0.4 mg/dL Normal 0.2-1.0 [facility] Comment on above: Performed By: #### I NFLUAB #### [facility] [address] [place] [address] Dr. Alejandra Crystal Calcium [Mass/Vol] 9.0 mg/dL Normal 8.5-10.1 [facility] Comment on above: Performed By: #### I NFLUAB #### [facility] [address] [place] [address] Dr. Alejandra Crystal Chloride [Moles/Vol] 109 mmol/L Critically high 98-107 [facility] Comment on above: Performed By: #### I NFLUAB #### [facility] [address] [place] [address] Dr. Alejandra Crystal CO2 [Moles/Vol] 21.2 mmol/L Normal 21.0-32.0 [facility] Comment on above: Performed By: #### I NFLUAB #### [facility] [address] [place] [address] Dr. Alejandra Crystal Creatinine [Mass/Vol] 0.93 mg/dL Normal 0.55-1.02 [facility] Comment on above: Performed By: #### I NFLUAB #### [facility] [address] [place] [address] Dr. Alejandra Crystal EGFR-AF ITALIAN Normal >=60 [facility] Comment on above: Performed By: #### I NFLUAB #### [facility] [address] [place] [address] Dr. Alejandra Crystal EGFR-NON AF ITALIAN Normal >=60 [facility] Comment on above: Performed By: #### I NFLUAB #### [facility] [address] [place] [address] Dr. Alejandra Crystal Globulin (S) [Mass/Vol] 3.2 g/dL Normal [facility] Comment on above: Performed By: #### I NFLUAB #### [facility] [address] [address] [address] Alejandra Crystal Glucose [Mass/Vol] 100 mg/dL Normal 74-106 [facility] Comment on above: Performed By: #### I NFLUAB #### [facility] [address] [address] [address] Alejandra Crystal Potassium [Moles/Vol] 2.8 mmol/L Critically low 3.5-5.1 [facility] Comment on above: Performed By: #### I NFLUAB #### [facility] [address] [place] [address] Dr. Alejandra Crystal Protein [Mass/Vol] 6.9 g/dL Normal 6.4-8.2 [facility] Comment on above: Performed By: #### I NFLUAB #### [facility] [address] [address] [address] Alejandra Crystal Sodium [Moles/Vol] 140 mmol/L Normal 136-145 [facility] Comment on above: Performed By: #### I NFLUAB #### [facility] [address] [address] [address] Alejandra Crystal Urea nitrogen [Mass/Vol] 16.0 mg/dL Normal 7.0-18.0 [facility] Comment on above: Performed By: #### I NFLUAB #### [facility] [address] [address] [address] Alejandra Crystal Urea nitrogen/Creatinine [Mass ratio] 17.2 mg/mg Normal [facility] Comment on above: Performed By: #### I NFLUAB #### [facility] [address] [place] [address] Dr. Alejandra Crystal TROPONIN, HIGH SENSITIVITYon 03-29-2022 HSTROP 5.2 pg/mL Normal 4.0-51.3 [facility] Comment on above: Result Comment: CUT- OFF POINTS HAVE BEEN ESTABLISHED BASED ON THE FOURTH UNIVERSAL DEFINITIONS OF MYOCARDIAL INFARCTION. THE UPPER REFERENCE LIMIT (URL) OF TROPONIN, DEFINED THE 99TH PERCENTILE OF cTnI DISTRIBUTION IN A REFERENCE POPULATION, HAS BEEN CONFIRMED THE DECISION THRESHOLD FOR PA DIAGNOSIS. Performed By: #### I NFLUAB #### [facility] [address] [place], [place] [id number] Dr. Alejandra Crystal Covid-19 PCR ([facility])on 03-08 SARS-CoV-2 (COVID-19) RNA JAYNE+probe Ql (Unsp spec) Not detected Normal NOT DETECTED [facility] Comment on above: Result Comment: This test is not yet approved or cleared by the [place] FDA. When there are no FDA-approved or cleared tests available, and other criteria are met, FDA can make tests available under an emergency access mechanism called an Emergency Use Authorization (EUA). The EUA for this test is supported by the [place] of Health and Human Service's (HHS's) declaration [...] L IPID, URIC, CMP, T7, TSH #### [facility] [address] [place] [id number] Alejandra Crystal MRI BRAIN WO W [...] CHAY MENDOZA Date: 2022-03-06 07:26 Normal [facility] CHEMISTRYOrdered By: SYSTEM SYSTEM on 02-21-2022 T4 [Mass/Vol] 5.1 ug/dL Normal 4.6 - 9.1 mcg/dL [facility] Remisol TSH Qn 0.20 m[IU]/L Low 0.34 - 5.60 mcIU/mL [facility] Remisol Covid-19 PCR ([facility])on 01-06 SARS-CoV-2 (COVID-19) RNA JAYNE+probe Ql (Unsp spec) Not detected Normal NOT DETECTED [facility] Comment on above: Result Comment: When diagnostic [...] for this test is supported by the [employer] of Health and Human Service's declaration that [...] used). Performed By: #### I NFLUAB #### [facility] [address] [place] [address] Dr. Alejandra Crystal CBC AUTO DIFFon 01-01-2022 BASO # 0.0 103/ul Normal 0.0-0.1 [facility] Comment on above: Performed By: #### O BSCRN #### [facility] [address] [place] [address] Dr. Alejandra Crystal Basophils/100 WBC (Bld) 0.7 % Normal 0.2-2.0 [facility] Comment on above: Performed By: #### O BSCRN #### [facility] [address] [place] [address] Dr. Alejandra Crystal EO # 0.1 103/ul Normal 0.0-0.7 [facility] Comment on above: Performed By: #### O BSCRN #### [facility] [address] [place] [address] Dr. Alejandra Crystal Eosinophils/100 WBC (Bld) 1.1 % Normal 0.9-7.0 [facility] Comment on above: Performed By: #### O BSCRN #### [facility] [address] [place] [address] Dr. Alejandra Crystal Erythrocyte distribution width (RBC) [Ratio] 13.1 % Normal 11.0-15.0 [facility] Comment on above: Performed By: #### O BSCRN #### [facility] [address] [place] [address] Dr. Alejandra Crystal Hematocrit (Bld) [Volume fraction] 43.4 % Normal 36.0-48.0 [facility] Comment on above: Performed By: #### O BSCRN #### [facility] [address] [place] [address] Dr. Alejandra Crystal Hemoglobin (Bld) [Mass/Vol] 14.5 g/dL Normal 12.0-16.0 [facility] Comment on above: Performed By: #### O BSCRN #### [facility] [address] [place] [address] Dr. Alejandra Crystal IG # 0.02 10e3/ul Normal 0.00-0.03 [facility] Comment on above: Performed By: #### O BSCRN #### [facility] [address] [place] [address] Dr. Alejandra Crystal IG % 0.4 % Normal 0.0-0.5 [facility] Comment on above: Performed By: #### O BSCRN #### [facility] [address] [place] [address] Dr. Alejandra Crystal LYMPH # 1.9 103/ul Normal 1.2-3.8 [facility] Comment on above: Performed By: #### O BSCRN #### [facility] [address] [place] [address] Dr. Alejandra Crystal Lymphocytes/100 WBC (Bld) 34.1 % Normal 20.5-60.0 [facility] Comment on above: Performed By: #### O BSCRN #### [facility] [address] [place] [address] Dr. Alejandra Crystal MANUAL DIFF REQ NO Normal [facility] Comment on above: Performed By: #### O BSCRN #### [facility] [address] [place] [address] Dr. Alejandra Crystal MCH (RBC) [Entitic mass] 30.9 pg Normal 26.7-34.0 [facility] Comment on above: Performed By: #### O BSCRN #### [facility] [address] [place] [address] Dr. Alejandra Crystal MCHC (RBC) [Mass/Vol] 33.4 g/dL Normal 29.9-35.2 [facility] Comment on above: Performed By: #### O BSCRN #### [facility] [address] [place] [address] Dr. Alejandra Crystal MCV (RBC) [Entitic vol] 92.5 fL Normal 81.0-99.0 [facility] Comment on above: Performed By: #### O BSCRN #### [facility] [address] [place] [address] Dr. Alejandra Crystal MONO # 0.4 103/ul Normal 0.3-0.8 [facility] Comment on above: Performed By: #### O BSCRN #### [facility] [address] [place] [address] Dr. Alejandra Crystal Monocytes/100 WBC (Bld) 7.7 % Normal 1.7-12.0 [facility] Comment on above: Performed By: #### O BSCRN #### [facility] [address] [place] [address] Dr. Alejandra Crystal NEUT # 3.0 103/ul Normal 1.4-6.5 [facility] Comment on above: Performed By: #### O BSCRN #### [facility] [address] [place] [address] Dr. Alejandra Crystal Neutrophils/100 WBC (Bld) 56.0 % Normal 43.0-75.0 [facility] Comment on above: Performed By: #### O BSCRN #### [facility] [address] [place] [address] Dr. Alejandra Crystal Platelet mean volume (Bld) [Entitic vol] 9.4 fL Critically low 9.5-13.5 [facility] Comment on above: Performed By: #### O BSCRN #### [facility] [address] [place] [address] Dr. Alejandra Crystal PLT 313 103/ul Normal 150-450 [facility] Comment on above: Performed By: #### O BSCRN #### [facility] [address] [place] [address] Dr. Alejandra Crystal RBC 4.69 106/ul Normal 4.20-5.40 [facility] Comment on above: Performed By: #### O BSCRN #### [facility] [address] [place] [address] Dr. Alejandra Crystal WBC 5.4 103/ul Normal 4.0-11.0 [facility] Comment on above: Performed By: #### O BSCRN #### [facility] [address] [address] [address] Alejandra Crystal FREE T3on 01-01-2022 FREE T3 4.72 pg/mlL Critically high 2.18-3.98 [facility] Comment on above: Performed By: #### L IPID, URIC, CMP, T7, TSH #### [facility] [address] [address] [address] Alejandra Crystal FREE THYROXINE INDEX T7on FTI 1.25 Critically low 1.30-4.50 [facility] Comment on above: Performed By: #### L IPID, URIC, CMP, T7, TSH #### [facility] [address] [address] [address] Alejandra Crystal T3U 32.0 % Normal 30.0-39.0 [facility] Comment on above: Performed By: #### L IPID, URIC, CMP, T7, TSH #### [facility] [address] [place] [address] Dr. Alejandra Crystal T4 [Mass/Vol] 3.90 ug/dL Critically low 4.80-13.90 [facility] Comment on above: Performed By: #### L IPID, URIC, CMP, T7, TSH #### [facility] [address] [address] [address] Alejandra Crystal PROF 14(COMP METB)on 022 Albumin [Mass/Vol] 3.8 g/dL Normal 3.4-5.0 [facility] Comment on above: Performed By: #### L IPID, URIC, CMP, T7, TSH #### [facility] [address] [place] [address] Dr. Alejandra Crystal Albumin/Globulin [Mass ratio] 11.4 {ratio} Normal [facility] Comment on above: Performed By: #### L IPID, URIC, CMP, T7, TSH #### [facility] [address] [place] [address] Dr. Alejandra Crystal ALP [Catalytic activity/Vol] 123 U/L Critically high 46-116 [facility] Comment on above: Performed By: #### L IPID, URIC, CMP, T7, TSH #### [facility] [address] [place] [address] Dr. Alejandra Crystal ALT [Catalytic activity/Vol] 27 U/L Normal 14-59 [facility] Comment on above: Performed By: #### L IPID, URIC, CMP, T7, TSH #### [facility] [address] [place] [address] Dr. Alejandra Crystal Anion gap [Moles/Vol] 11.5 mmol/L Normal [facility] Comment on above: Performed By: #### L IPID, URIC, CMP, T7, TSH #### [facility] [address] [place] [address] Dr. Alejandra Crystal AST [Catalytic activity/Vol] 16 U/L Normal 15-37 [facility] Comment on above: Performed By: #### L IPID, URIC, CMP, T7, TSH #### [facility] [address] [place] [address] Dr. Alejandra Crystal Bilirubin [Mass/Vol] 0.6 mg/dL Normal 0.2-1.0 [facility] Comment on above: Performed By: #### L IPID, URIC, CMP, T7, TSH #### [facility] [address] [place] [address] Dr. Alejandra Crystal Calcium [Mass/Vol] 8.8 mg/dL Normal 8.5-10.1 [facility] Comment on above: Performed By: #### L IPID, URIC, CMP, T7, TSH #### [facility] [address] [place] [address] Dr. Alejandra Crystal Chloride [Moles/Vol] 110 mmol/L Critically high 98-107 [facility] Comment on above: Performed By: #### L IPID, URIC, CMP, T7, TSH #### [facility] [address] [place] [address] Dr. Alejandra Crystal CO2 [Moles/Vol] 23.9 mmol/L Normal 21.0-32.0 [facility] Comment on above: Performed By: #### L IPID, URIC, CMP, T7, TSH #### [facility] [address] [address] [address] Alejandra Crystal Creatinine [Mass/Vol] 0.90 mg/dL Normal 0.55-1.02 [facility] Comment on above: Performed By: #### L IPID, URIC, CMP, T7, TSH #### [facility] [address] [address] [address] Alejandra Crystal EGFR-AF ITALIAN >=60 Normal >=60 [facility] Comment on above: Performed By: #### L IPID, URIC, CMP, T7, TSH #### [facility] [address] [place] [address] Dr. Alejandra Crystal EGFR-NON AF ITALIAN >=60 Normal >=60 [facility] Comment on above: Performed By: #### L IPID, URIC, CMP, T7, TSH #### [facility] [address] [place] [address] Dr. Alejandra Crystal Globulin (S) [Mass/Vol] 3.5 g/dL Normal [facility] Comment on above: Performed By: #### L IPID, URIC, CMP, T7, TSH #### [facility] [address] [place] [address] Dr. Alejandra Crystal Glucose [Mass/Vol] 107 mg/dL Critically high 74-106 [facility] Comment on above: Performed By: #### L IPID, URIC, CMP, T7, TSH #### [facility] [address] [place] [address] Dr. Alejandra Crystal Potassium [Moles/Vol] 3.3 mmol/L Critically low 3.5-5.1 [facility] Comment on above: Performed By: #### L IPID, URIC, CMP, T7, TSH #### [facility] [address] [place] [address] Dr. Alejandra Crysatl Protein [Mass/Vol] 7.3 g/dL Normal 6.4-8.2 [facility] Comment on above: Performed By: #### L IPID, URIC, CMP, T7, TSH #### [facility] [address] [place] [address] Dr. Alejandra Crystal Sodium [Moles/Vol] 142 mmol/L Normal 136-145 [facility] Comment on above: Performed By: #### L IPID, URIC, CMP, T7, TSH #### [facility] [address] [place] [address] Dr. Alejandra Crystal Urea nitrogen [Mass/Vol] 13.0 mg/dL Normal 7.0-18.0 [facility] Comment on above: Performed By: #### L IPID, URIC, CMP, T7, TSH #### [facility] [address] [place] [address] Dr. Alejandra Crystal Urea nitrogen/Creatinine [Mass ratio] 14.4 mg/mg Normal [facility] Comment on above: Performed By: #### L IPID, URIC, CMP, T7, TSH #### [facility] [address] [place] [address] Dr. Alejandra Crystal TSHon 01-01-2022 TSH 0.177 uIU/mL Critically low 0.358-3.740 [facility] Comment on above: Performed By: #### L IPID, URIC, CMP, T7, TSH #### [facility] [address] [place] [address] Dr. Alejandra Crystal T4 [facility]on 12-02-2021 T4 [Mass/Vol] 4.8 ug/dL Normal 4.5-12.0 [facility] Comment on above: Performed By: #### I NFLUAB #### [facility] [address] [place] [address] Dr. Alejandra Crystal OCC BLD IMMUNO SCREENon 11-06 OCCULT BLOOD Negative Normal NEGATIVE [facility] Comment on above: Performed By: #### O BSCRN #### [facility] [address] [place] [address] Dr. Alejandra Crystal CBC AUTO DIFFon 11-30-2021 BASO # 0.1 103/ul Normal 0.0-0.1 [facility] Comment on above: Performed By: #### I NFLUAB #### [facility] [address] [place] [address] Dr. Alejandra Crystal Basophils/100 WBC (Bld) 0.8 % Normal 0.2-2.0 [facility] Comment on above: Performed By: #### I NFLUAB #### [facility] [address] [place] [address] Dr. Alejandra Crystal EO # 0.0 103/ul Normal 0.0-0.7 [facility] Comment on above: Performed By: #### I NFLUAB #### [facility] [address] [place] [address] Dr. Alejandra Crystal Eosinophils/100 WBC (Bld) 0.3 % Critically low 0.9-7.0 [facility] Comment on above: Performed By: #### I NFLUAB #### [facility] [address] [place] [address] Dr. Alejandra Crystal Erythrocyte distribution width (RBC) [Ratio] 12.8 % Normal 11.0-15.0 [facility] Comment on above: Performed By: #### I NFLUAB #### [facility] [address] [place] [address] Dr. Alejandra Crystal Hematocrit (Bld) [Volume fraction] 48.6 % Critically high 36.0-48.0 [facility] Comment on above: Performed By: #### I NFLUAB #### [facility] [address] [place] [address] Dr. Alejandra Crystal Hemoglobin (Bld) [Mass/Vol] 16.0 g/dL Normal 12.0-16.0 [facility] Comment on above: Performed By: #### I NFLUAB #### [facility] [address] [place] [address] Dr. Alejandra Crystal IG # 0.38 10e3/ul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 Heart rate 61 /min Boy Hai [facility] 10-30-2021 07:49-0400 Respiratory rate 16 /min Boy Hai [facility] 10-30-2021 07:49-0400 SaO2% (BldA) [Mass fraction] 97 % Boy Hai [facility] 10-30-2021 07:49-0400 Systolic blood pressure 103 mm[Hg] Boy Hai [facility] 10-30-2021 07:18-0400 Body temperature 98.24 [degF] Boy Valles [facility] 10-30-2021 07:18-0400 Diastolic blood pressure 64 mm[Hg] Boy Valles [facility] 10-30-2021 07:18-0400 Heart rate 72 /min Boy Valles [facility] 10-30-2021 07:18-0400 Mean blood pressure 74 mm[Hg] Boy Valles [facility] 10-30-2021 07:18-0400 Respiratory rate 14 /min Boy Valles [facility] 10-30-2021 07:18-0400 SaO2% (BldA) [Mass fraction] 97 % Boy Valles [facility] 10-30-2021 07:18-0400 Systolic blood pressure 95 mm[Hg] Boy Valles [facility] Encounters Encounter Date Encounter Type Care Provider Facility Start: 07-29-2023 ambulatory Ade Hennessy [facility] y:[facility] Start: 06-25-2023 End: 07-03-2023 Pre-admission assessment Ade Hennessy [facility] Start: 06-10-2023 End: 06-11-2023 ambulatory Tae Alcazar Facility:[facility] Start: 06-10-2023 End: 06-10-2023 Pain Management Ade Hennessy [facility] Start: 05-20-2023 ambulatory Devon Sanders acility:[facility] Start: 05-08-2023 End: 05-08-2023 ambulatory CYNDYI SERGIO Facility:[facility] Start: 05-08-2023 End: 05-08-2023 Patient encounter procedure Stalin Reyes MD Work Phone: Neurology Comment on above: Radiculopathy, lumba r region (Primary Dx); Intractable chronic migraine without aura and without status migrainosus; Essential tremor; Depression, unspecified depression type; Anxiety Start: 05-07-2023 End: 05-08-2023 ambulatory Boy Valles Facility:[facility] Start: 05-07-2023 End: 05-07-2023 Pain Management Boy Valles [facility] Start: 04-19-2023 End: 04-20-2023 ambulatory Tae Tannerdank Facility:[facility] Start: 04-19-2023 End: 04-19-2023 Pain Management Ade Minoo [facility] Start: 03-14-2023 End: 03-15-2023 Emergency department patient visit Chandni Walshkristina Facility:[facility] Start: 03-14-2023 End: 03-15-2023 Emergency department patient visit [facility] Sidra Hailey [facility] Start: 02-05-2023 End: 02-05-2023 ambulatory NATHANAEL RYAN Facility:[facility] Start: 02-05-2023 End: 02-05-2023 Patient encounter procedure Nathanael Ryan MD Work Phone: [facility] Comment on above: Hemangioma of bone ( Primary Dx); Brain tumor (HCC) Start: 01-24-2023 End: 01-24-2023 ambulatory Ade Valderrama RT(R) Radiology Comment on above: Radiology MRI Start: 01-24-2023 Patient encounter procedure Ade Valderrama RT(R) ORTH [place] Start: 12-18-2022 Telephone encounter Edilberto delacruz RN Work Phone: [facility] Comment on above: Insurance Authorizat ion (Emgality 120MG/ML auto-injectors (migraine)/) Start: 12-17-2022 End: 12-17-2022 ambulatory STALIN REYES Facility:[facility] Start: 11-20-2022 End: 11-21-2022 ambulatory Yamile Muller Facility:[facility] Start: 10-13-2022 End: 10-13-2022 ambulatory [facility] Start: 10-01-2022 End: 10-02-2022 ambulatory Tae Alcazar Facility:[facility] Start: 10-01-2022 End: 10-01-2022 Pain Management Ade Hennessy [facility] Start: 09-20-2022 End: 09-21-2022 ambulatory Tae Alcazar Facility:[facility] Start: 09-20-2022 End: 09-20-2022 Patient encounter procedure Tae Alcazar [facility] Start: 08-31-2022 End: 09-01-2022 ambulatory CURRY Hennessy Facility:[facility] Start: 08-28-2022 ambulatory EDUARDO [facility] Start: 08-25-2022 End: 08-26-[address] TAE ALCAZAR . Facility: Start: 08-16-2022 End: 08-16-[address] TAE ALCAZAR . Facility: Start: 08-14-2022 End: 08-15-2022 ambulatory Boy Valles Facility:[facility] Start: 08-14-2022 End: 08-14-2022 Pain Management Boy Valles [facility] Start: 08-13-2022 End: 08-13-[address] TAE ALCAZAR . Facility: Start: 07-17-2022 End: 08-01-2022 Pre-admission assessment Boy Valles [facility] Start: 07-03-2022 End: 07-03-2022 Pain Management Boy Valles [facility] Start: 06-06-2022 End: 06-06-[address] TAE ALCAZAR . Facility:[facility] Start: 06-04-2022 Encounter for genera l adult medical examination without abnormal findings DR TAE ALCAZAR . [facility] Start: 05-29-2022 End: 05-30-[address] TAE ALCAZAR . Facility:[facility] Start: 05-29-2022 End: 05-30-2022 Encounter for general adult medical examination without abnormal findings DR TAE ALCAZAR . Facility:[facility] Start: 05-18-2022 End: 05-18-2022 Pain Management Ade Hennessy [facility] Start: 05-17-2022 End: 05-18-[address] TAE ALCAZAR . Facility:[facility] Start: 05-15-2022 End: 05-16-[address] TAE ALCAZAR . Facility:[facility] Start: 04-23-2022 End: 04-23-2022 Patient encounter procedure MIRANDA CAT [facility] Start: 04-11-2022 End: 04-11-2022 Emergency department patient visit Jim Ramirez [facility] Start: 04-09-2022 End: 04-09-2022 Pain Management Ade Hennessy [facility] Start: 04-09-2022 End: 04-10-[address] TAE ALCAZAR . Facility:[facility] Start: 03-29-2022 End: 03-29-2022 ambulatory MARANDA BARRERA . Facility:[facility] Start: 03-19-2022 End: 03-19-[address] TAE ALCAZAR . Facility:[facility] Start: 03-05-2022 End: 03-06-[address] TAE ALCAZAR . Facility:[facility] Start: 02-21-2022 End: 02-21-2022 Patient encounter procedure ADE AMARO [facility] Start: 02-09-2022 End: 02-09-2022 Pain Management Ade Hennessy [facility] Start: 01-29-2022 End: 01-29-[address] TAE ALCAZAR . Facility:[facility] Start: 01-16-2022 End: 01-16-2022 Pain Management Boy Valles [facility] Start: 01-05-[address] TAE ALCAZAR [...] Start: 11-17-2021 End: 11-17-2021 Pain Management Ade Hennessy [facility] Start: 10-30-2021 End: 10-30-2021 Pain Management Boy Valles [facility] Start: 10-07-2017 End: 10-08-2017 Ambulatory REFERRED SELF Facility:[facility] Procedures Date Procedure Procedure Detail Performing Clinician Start: 05-07-2023 Injection of nerve r oot of lumbar spine using fluoroscopic guidance Ade Hennessy Comment on above: L4-L5-50% relief for 1 week Start: 10-13-2022 Follow-up visit Follow-up EDUARDO Garcia [facility] Start: 08-14-2022 Injection of nerve r oot of lumbar spine using fluoroscopic guidance Tae Alcazar Comment on above: 50% relief Start: 01-16-2022 Injection of sacroil iac joint Ade [employer] Comment on above: left SIJI 45% relief . left SIJI 45% relief . Start: 10-30-2021 Injection of nerve r oot of lumbar spine using fluoroscopic guidance [employer] Comment on above: 701% relief at least 701% relief at least Start: 04-17-2021 Injection of nerve r oot of lumbar spine using fluoroscopic guidance Boy Valles Comment on above: L4+L5 25% relief wor thwhile L4+L5 25% relief wor thwhile Start: 08-21-2011 Amputation of finger tip Boy Valles Comment on above: right 3rd finger right 3rd finger Start: 12-07-2003 Cholecystectomy Boy Valles Hysterectomy Byo Valles Comment on above: partial partial Repair of ligament Boy neal Plan of Treatment Date Care Activity Detail Author Start: 09-12-2032 Urine microalbumin profile DTaP,Tdap,Td Vaccine (2 - Td or Tdap) [facility] Start: 03-08-2023 Covid-19 Vaccine ( season) Covid-19 Vaccine ( season) [facility] Start: 03-08-2023 [facility] Start: 2019 Mamm[facility] Start: 2009 HPV TESTING HPV TESTING [facility] Start: 2000 PAP TESTING PAP TESTING [facility] Start: 1998 SHINGRIX VACCINE (1 of 2) SHINGRIX V ACCINE (1 of 2) [facility] Start: 1998 Urine microalbumin profile DTAP,TDAP,TD (1 - Tdap) [facility] Start: 1997 HEPATITIS C SCREENING HEPATITIS C SC DOREENNING [facility] Start: 1997 HIV SCREENING HIV SCREENING [facility] Start: 1985 PNEUMOCOCCAL (1 - PCV) PNEUMOCOCCAL (1 - PCV) [facility] Start: 1985 Pneumococcal vaccination Pneum ococcal Vaccine (1 - PCV) [facility] Start: 1979 HEPATITIS B (1 of 3 - 3-dose series) HEPATITIS B (1 of 3 - 3-dose series) [facility] Start: 1979 Hepatitis B Vaccine (1 of 3 - 3-dose series) Hepatitis B Vaccine (1 of 3 - 3-dose series) [facility] c Immunizations Immunization Date Immunization Notes Care Provider Fa cility 09-12-2022 influenza virus vacc ine, unspecified formulation [facility] 09-12-2022 SARS-CoV-2 (COVID-19 ) [id number] [facility] 09-12-2022 tetanus toxoid, redu leticia diphtheria toxoid, and acellular pertussis vaccine, adsorbed [facility] 01-24-2022 SARS-CoV-2 (COVID-19 ) mRNA-1273 vaccine [facility] 11-16-2020 SARS-CoV-2 (COVID-19 ) mRNA-1273 vaccine [facility] 10-19-2020 SARS-CoV-2 (COVID-19 ) mRNA-1273 vaccine [facility] 05-04-2020 influenza virus vacc ine, unspecified formulation [facility] 08-24-2019 influenza virus vacc ine, unspecified formulation [facility] 03-26-2017 influenza virus vacc ine, unspecified formulation [facility] Payers Date Payer Category Payer Self-pay 2022 Medicaid [employer] [id number] 2022-Present [phone] [address] [place] [address] Medicaid [id number] 1979 Unknown [id number] 2.16.840.1.325441.3.579.2.593 1979 Unknown [id number] 2.16.840.1.686189.3.579.2.593 1979 Unknown [id number] 2.16.840.1.045661.3.579.2.593 1979 Unknown [id number] 2.16.840.1.414917.3.579.2.593 1979 Unknown [id number] 2.16.840.1.483461.3.579.2.593 1979 Unknown [id number] 2.16.840.1.215483.3.579.2.593 1979 Unknown [id number] 2.16.840.1.778437.3.579.2.593 1979 Unknown [id number] 2.16.840.1.218106.3.579.2.593 1979 Unknown [id number] 2.16.840.1.589547.3.579.2.593 1979 Unknown [id number] 2.16.840.1.592742.3.579.2.593 1979 Unknown [id number] 2.16.840.1.158247.3.579.2.593 1979 Unknown [id number] 2.16.840.1.127707.3.579.2.593 1979 Unknown [id number] 2.16.840.1.365094.3.579.2.593 1979 Unknown [id number] 2.16.840.1.497919.3.579.2.593 1979 Unknown [id number] 2.16.840.1.013996.3.579.2.593 1979 Unknown [id number] 2.16.840.1.202282.3.579.2.593 1979 Unknown [id number] 2.16.840.1.226497.3.579.2.593 1979 Unknown [id number] 2.16.840.1.941498.3.579.2.593 1979 Unknown [id number] 2.16.840.1.493340.3.579.2.593 1979 Unknown [id number] 2.16.840.1.238591.3.579.2.727 1979 Unknown [id number] 2.16.840.1.813749.3.579.2.727 1979 Unknown [id number] 2.16.840.1.387720.3.579.2.727 1979 Unknown [id number] 2.16.840.1.247833.3.579.2.727 1979 Unknown [id number] 2.16.840.1.276333.3.579.2.727 1979 Unknown [id number] 2.16.840.1.520298.3.579.2.727 1979 Unknown [id number] 2.16.840.1.228466.3.579.2.727 1979 Unknown [id number] 2.16.840.1.904307.3.579.2.727 1979 Unknown [id number] 2.16.840.1.196018.3.579.2.727 1979 Unknown [id number] 2.16.840.1.539144.3.579.2.727 1959 Medicaid [id number] 1959 Unknown [id number] 1959 Unknown [id number] 1959 Unknown [id number] Unknown [id number] 2.16.840.1.659217.3.579.2.531 Social History Date Type Detail Facility Start: 07-04-2020 End: 11-20-2022 Tobacco smoking status Never smoked tobacco (finding) [facility] Comment on above: Deniesde Start: 12-17-2022 End: 02-05-2023 Sex Assigned At Female [facility] Start: 05-12-2015 Tobacco use and exposure Smokeless tobacco non-user [facility] Work Phone: Start: 12-17-2022 End: 05-08-2023 Alcohol intake Current drinker of alcohol (finding) [facility] Start: 05-12-2015 [facility] Start: 1980 Sex Assigned At Not on file [facility] Start: 12-17-2022 End: 02-05-2023 History of Social function [facility] Adult Depression Screening Assessment 5 [facility] Functional Status Date Assessment Result Facility 06-10-2023 Functional Status N/A [facility] 05-07-2023 Functional Status N/A [facility] 04-19-2023 Functional Status N/A [facility] 03-14-2023 Functional Status N/A [facility] 10-01-2022 Functional Status N/A [facility] 08-14-2022 Functional Status N/A [facility] 05-18-2022 Functional Status N/A [facility] 04-11-2022 Functional Status N/A [facility] 04-09-2022 Functional Status N/A [facility] 02-09-2022 Functional Status N/A [facility] 01-16-2022 Functional Status N/A [facility] Clinical Notes 11-17-2021 to 06-10-2023 Note Date [...] reevaluation to discuss options PAOLA score: 36% [facility]11-01-2023 NoteHNO ID: [id number] Author: Stalin Reyes MD Service: ? Author Type: Physician Type: Progress Notes Filed: 05/08/2023 3:40 PM Note Text: [facility] General Neurology Follow up/ Established patient visit Individuals who were included in, or assisted with the encounter were: Mitesh Kendall Jenifer Reyes MD Chief Complaint/Issues: Mitesh Burgess is a 43 year old R handed female w PMH chronic migraine stopped Emgality half year ago, anxiety, depression, skull mass, seen in the [facility] for General Neurology for: Dizziness, headache and tremor Most Recent Neurological Assessment and Plan: Last Filed Values Date of Most Recent Assessment and Plan 12/17/22 Specialty General Neurology Assessment Mitesh Burgess is a 42 year old R handed female w PMH chronic migraine stopped Emgality half year ago, anxiety, depression, skull mass, seen in the [facility] for General Neurology for: 1. Dizziness, headache [...] pain management. [facility]. She has been on Lyrica 300 [...] intact. Fundi with normal (more content not included)...[id number] Patient Instructions* Stalin Reyes MD - [...] up in 6 months [facility] History of Present illness Narrative* Stalin Reyes MD - 05/08/2023 2:21 PM EDT Images from the original note were not included. [facility] General Neurology Follow up/ Established patient visit Individuals who were included in, or assisted with the encounter were: Mitesh Burgess Stalin Reyes MD Chief Complaint/Issues: Mitesh Burgess is a 43 year old R handed female w PMH chronic migraine stopped Emgality half year ago, anxiety, depression, skull mass, seen in the [facility] for General Neurology for: Dizziness, headache and tremor Most Recent Neurological Assessment and Plan: Last Filed Values Date of Most Recent Assessment and Plan 12/17/22 Specialty General Neurology Assessment Mitesh Burgess is a 42 year old R handed female w PMH chronic migraine stopped Emgality half year ago, anxiety, depression, skull mass, seen in the [facility] for General Neurology for: 1. Dizziness, headache [...] pain management. Her pain management is absent [facility]. She has been on Lyrica 300 [...] anxiety, depression, skull mass, seen in the [facility] for General Neurology for: 1. Dizziness, headache [...] JT/PHALANX W/NEURECT W/DIR CLSR CARDIAC CATHETERIZATION HX 10/25/15 Preserved ejection fraction. Normal coronary arteries. 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 Outside Data/Labs: Subjective Patient-Entered Data: 05/08/23 - GENERAL NEUROLOGY SCORES No flowsheet data found. Depression Screening 03/25/2018 06/24/2018 PHQ-2 Score 2 5 PHQ-9 Score 19 22 TERE-2 Total Score 6 6 TERE-7 Total Score 17 15 No flowsheet data found. No flowsheet data found. No flowsheet data found. I spent a total of 40 minutes on the date of the service which included preparing to see the patient, [id number] patient care, completing clinical documentation, obtaining and/or reviewing separately obtained history, performing a medically appropriate examination, counseling and educating the pat ient/family/caregiver, ordering medications, tests, or procedures, independently interpreting results (not separately reported), communicating results to the patient/family/caregiver, and care coordination (not separately reported). Stalin Reyes MDThere is no data to display for this encounter documented in this encounterPremier Health10-31-2023 Note [id number] [facility] 04-19-20[facility] Evaluation + Plan noteExtracted from: Title:Pain [...] Refill of Lyrica sent. PAOLA score: 42% [facility]09-08-2023 Evaluation + Plan noteExtracted from: Title:ED Note Author:Chandni Hart M.D. te:03/15/23 1. Migraine headache (G43.90 9: Migraine, [...] EDT, 500 mL/hr, Infuse over 1, hour(s) [facility]09-08-2023 Hospital Discharge instructions Patient Education 03/15/2023 [...] Follow these instructions at home: Medicines Take iwmi-nwp-mkazxjs and prescription medicines only as told by your health care provider. Ask your health care provider if the medicine prescribed to you: ?Requires you to avoid driving or using heavy machinery. ?Can cause constipation. You may need to take these actions to prevent or treat constipation: ?Drink enough fluid to keep your urine pale yellow. ?Take ejej-hap-uvhblat or prescription medicines. ?Eat foods that are [...] provider. Document Revised: 10/16/2019 Document Reviewed: 08/06/2019 [employer] Patient Education 2022 [facility]. Follow Up Care 03/14/2023 21:27:36 With:Tae Alcazar Address: [address] [place], [place] [id number] Business (1) When:03/18/2023 Comments:Return to the emergency room if your headache recurs or any new symptoms. [facility]08-01-2023 NoteHNO ID: [id number] Author: Nathanael Ryan MD Service: ? Author Type: Physician Type: Progress Notes Filed: 02/05/2023 11:43 AM Note Text: [facility] New Patient Consultation Referred by Stalin Reyes [address] [place] [id number] Diagnosis: skull hemangioma Subjective History of Present [...] DATE OF EXAM: Jan 24 2023 2:18PM YANNA 0295 - MRI BRAIN WO/W IVCON / PROCEDURE REASON: Brain tumor (HCC) * * * * Physician Interpretation * * * * EXAMINATION: MRI BRAIN WO/W IVCON HISTORY: Brain tumor (HCC) Per the electronic medical record: PMH chronic migraine stopped Emgality half year ago, anxiety, depression, skull mass, seen in the [facility] for: Dizziness, headache and tremor 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 TECHNIQUE: Routine brain MRI protocol (more content not included)...[facility]08-01-2023 History of Present illness Narrative* Nathanael Ryan MD - 02/05/2023 10:09 AM EDT Images from the original note were not included. [facility] New Patient Consultation Referred by Stalin Reyes [address] [facility] [address] Diagnosis: skull hemangioma Subjective History of Present [...] DATE OF EXAM: Jan 24 2023 2:18PM [facility] 0295 - MRI BRAIN WO/W IVCON / PROCEDURE REASON: Brain tumor (HCC) * * * * Physician Interpretation * * * * EXAMINATION: MRI BRAIN WO/W IVCON HISTORY: Brain tumor (HCC) Per the electronic medical record: PMH chronic migraine stopped Emgality half year ago, anxiety, depression, skull mass, seen in the [facility] for: Dizziness, headache and [...] and is most compatible with intraosseous hemangioma. 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 Personal review of image, tracing or [...] which included preparing to see the patient, udwt-la-jtrx patient care, completing clinical documentation, obtaining and/or reviewing separately obtained history, counseling and educating the patient/family/caregiver, independently interpretin g results (not separately reported), and care coordination (not separately reported). Nathanael Ryan MD February 05, 2023 10:46 AM documented [facility]-01-2023 Nurse Note* Ade Patten Ma - 02/05/2023 9:40 AM EDT Additional intake questions: Has the patient had fever, nausea, vomiting, diarrhea, constipation, fatigue for > 1 week? No Does the patient have a decreased appetite? No Does patient want to see a Creative Consultant? No (yes to any of above refer patient to schedulers for dietitian appointment) ) Does patient have any new or increased numbness or tingling of extremities? No Is patient interested in fertility information? No Does patient need any prescription refills? No Does patient have an advanced directive in place? No, Patient referred to [facility] documented in this encounter[facility]07-20-2023 NoteHNO ID: [id number] Author: Ade Valderrama RT([place]) Service: ? Author Type: Technologist Type: Progress [...] Burgess DATE: January 24, 2023 TIME: 2:05 [facility]07-20-2023 History of Present illness Narrative* Ade [...] 2023 TIME: 2:05 PM documented in this encounterPremier [facility]06-15-2023 Miscellaneous Notes* Telephone Encounter - Edilberto Tirado RN - 12/20/2022 3:58 PM EDT Ambulatory Pharmacy Prior Authorization Note Provider Intervention Required?: No- Pharmacy completed on your behalf. Rx Plan: Medicaid [facility] ([facility]) Drug: Emgality 120MG/ML auto-injectors (migraine) Cover My Meds Garcia: [id number] Determination: Approved Prior Authorization/Case #: n/a Prior [...] refills. Prescriptions will now be processed through [facility] for determination of next steps. For questions relating to this submission, please contact [facility] at [phone] * Telephone Encounter - Edilberto Tirado RN - 12/18/2022 4:55 PM EDT [facility] received prescription(s) for Emgality 120MG/ML auto-injectors (migraine). Benefits investigation was conducted, indicating that a prior authorization is required. PA was initiated and pending review through [employer]. All pertinent clinical information was submitted to insurance. CMM Garcia: [id number] Ordering Provider: MD Celestino Etienne Alisha, RN [facility] P: , F: documented in this encounterPremier Health06-12-2023 NoteHNO ID: [id number] Author: Stalin Reyes MD Service: ? Author Type: Physician Type: Progress Notes Filed: 12/17/2022 2:28 PM Note Text: [facility] Follow up/ Established patient visit Individuals who were included in, or assisted with the encounter were: Mitesh Burgess Stalin Reyes MD Chief Complaint/Issues: Mitesh Burgess is a 42 year old R handed female w H chronic migraine stopped Emgality half year ago, anxiety, depression, skull mass, seen in the [facility] for: Dizziness, headache and [...] - General Neurology, Stalin Reyes MD ASSESSMENT Miteshteresa Burgess is a 42 year old R handed female w PMH chronic migraine stopped Emgality half year ago, anxiety, depression, skull mass, seen in the [facility] for: 1. Dizziness, headache [...] and depression PLAN --W (more content not included)...[phone] Note Attestation signed by Eduardo Clemente MD [...] available for review today. MRI report from [facility] was reviewed stating the possibility of an [...] capsular release, and any other indicated procedures CARSON WIN MD Orthopedic Surgery, PGY-1 Ortho Pager [phone] 10/13/22 1:38 [facility] Evaluation + Plan noteExtracted from: Title:Pain Managment Follow up Author:Ade Puente Date:10/01/22 Impression and Plan Patient is a 42-year-old female with a past medical history significant for lumbar neuritis, sacroiliitis, myalgia, left hip and knee pain. She also has some shoulder issues. She is seeing somebody at the [facility] for this. She has an appointment with [...] 01:00:00 PM Scheduled Provider:Ade Hennessy PA-C Location:.[facility] Appointment Type:Pain Management - Follow Up (FT) [facility]02-21-2023 Note Attestation signed by Eduardo Clemente [...] available for review today. MRI report from [facility] was reviewed stating the possibility of an [...] Jim Carranza MD Orthopedic Surgery, PGY-5 Pager: [phone] 08/28/22 11:42 AM By using the attestations [...] and I was otherwise immediately available to [facility]02-07-2023 Note [id number]:127[facility] 05-18-2022 Evaluation + Plan noteExtracted from: Title:Pain Managment Follow up Author:Minoo Durbin Ade Date:05/18/22 Impression and Plan Patient is a [...] for reevaluation. Call clinic sooner if necessary. [facility]10-05-2022 Hospital Discharge instructions Patient Education 04/11/2022 [...] fried or sweet foods. General instructions Take izka-dth-euiheqs and prescription medicines only as told by [...] 06/14/2003 Document Revised: 07/20/2019 Document Reviewed: 07/03/2018 [employer] Patient Education 2020 [facility]. 04/11/2022 17:19:39 Neuropathic Pain Neuropathic Pain Neuropathic [...] this treated? Treatment for neuropathic pain may exchange underwriting consultant time. You may need to try different treatment options or a combination of treatments. Some options include: Treating the underlying cause of the neuropathy, such as diabetes, kidney disease, or vitamin deficiencies. Stopping medicines that can cause neuropathy, such as chemotherapy. Medicine to relieve pain. Medicines may include: ?Prescription or xekw-tun-ooggulk pain medicine. ?Anti-seizure medicine. ?Antidepressant medicines. ?Pain-relieving [...] Follow these instructions at home: Medicines Take rdla-jdq-kirdgpr and prescription medicines only as told by [...] as fried or sweet foods. ?Take an bwlu-vsm-nnjvjnn or prescription medicine for constipation. Lifestyle Have [...] 03/21/2005 Document Revised: 10/15/2019 Document Reviewed: 07/11/2018 [employer] Patient Education 2020 [facility]. Follow Up Care 04/11/2022 14:37:42 With:Chay Carter Address: [address] [place] [address]- Business (1) When:04/12/2022 16:43:30 With:Jr Martines Address: [address] [place] [address]- Business (1) When:04/12/2022 16:43:28 With:Tae Alcazar Address: [address] [facility] [address]- Business (1) When:Within 3 Day(s) [facility]10-05-2022 Evaluation + Plan noteExtracted from: Title:ED Note Author:Jose PARae Burleson e:04/11/22 1. Paresthesias (R20.2: Pare sthesia of [...] Date:05/18/2022 11:15:00 AM Scheduled Provider:Ade Hennessy PA-C Location:[facility] Appointment Type:Pain Management - Follow Up (FT) [facility]10-03-2022 Evaluation + Plan noteExtracted from: Title:Pain [...] had some falls and went to the [facility] and has had a lot of other [...] Date:05/18/2022 11:15:00 AM Scheduled Provider:Ade Hennessy PA-C Location:[facility] Appointment Type:Pain Management - Follow Up (FT) [facility]09-22-2022 NotePROCEDURE: XR SHOULDER LT 2V or > COMPARISON: None. HISTORY: Acute pain due to injury FINDINGS: BONES:No fracture, acute abnormality, or significant arthropathy. SOFT TISSUES:Negative. No visible soft tissue swelling. EFFUSION:None visible. OTHER: Negative. IMPRESSION: No acute abnormality Electronically authenticated by: EDUARDO CROSS Date: 2022-03-29 16:01[facility]08-05-2022 Evaluation + Plan noteExtracted from: Title:Pain management [...] Date:03/26/2022 11:15:00 AM Scheduled Provider:Ade Hennessy PA-C Location:[facility] Appointment Type:Pain Management - Follow Up (FT) [facility]05-13-2022 Evaluation + Plan noteExtracted from: Title:Pain [...] reevaluation. Call the clinic sooner if necessary. [facility] Future Appointments Appointment Date:11/17/2021 08:45:00 AM Scheduled Provider:Ade Hennessy PA-C Location:[facility] Appointment Type:Pain Management - Follow Up (FT) [facility] Future Appointments Appointment Date:02/09/2022 10:00:00 AM Scheduled Provider:Ade Hennessy PA-C Location:[facility] Appointment Type:Pain Management - Follow Up (FT) [facility] Future Appointments Appointment Date:03/26/2022 11:15:00 AM Scheduled Provider:Ade Hennessy PA-C Location:[facility] Appointment Type:Pain Management - Follow Up (FT) [facility] Future Appointments Appointment Date:03/26/2022 11:15:00 AM Scheduled Provider:Ade Hennessy PA-C Location:[facility] Appointment Type:Pain Management - Follow Up (FT) Diagnostic Tests Pending * T3 Free 02/21/22 [facility] Future Appointments Appointment Date:04/30/2022 04:45:00 PM Scheduled Provider: Location:[facility] [place] Appointment Type:PT Eval (FT) Appointment Date:05/18/2022 11:15:00 AM Scheduled Provider:Ade Hennessy PA-C Location:[facility] Appointment Type:Pain Management - Follow Up (FT) Diagnostic Tests Pending * Group A Strep by PCR 04/23/22 [facility] Future Appointments Appointment Date:08/14/2022 10:00:00 AM Scheduled Provider: Location:[facility] Appointment Type:Surgery FT Appointment Date:08/31/2022 08:45:00 AM Scheduled Provider:Ade Hennessy PA-C Location:[facility] [place] Appointment Type:Pain Management - Follow Up (FT) [facility] Future Appointments Appointment Date:08/31/2022 08:45:00 AM Scheduled Provider:Ade Hennessy PA-C Location:[facility] [place] Appointment Type:Pain Management - Follow Up (FT) [facility] Future Appointments Appointment Date:10/01/2022 10:30:00 AM Scheduled Provider:Ade Hennessy PA-C Location:[facility] Appointment Type:Pain Management - Follow Up (FT) [facility] Future Appointments Appointment Date:06/10/2023 03:00:00 PM Scheduled Provider:Ade Hennessy PA-C Location:[facility] [place] Appointment Type:Pain Management - Follow Up (FT) [facility]* Diagnosis 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 Brain tumor (HCC) Neoplasm of unspecified nature of brain documented in this encounter [facility] note* Diagnosis Radiculopathy, lumbar region- Primary Thoracic or lumbosacral neuritis or radiculitis, unspecified Intractable chronic migraine without aura and without status migrainosus Chronic migraine without aura, with intractable migraine, so stated, without mention of status migrainosus Essential tremor Essential and other specified forms of tremor Depression, unspecified depression type Anxiety Anxiety state, unspecified documented [facility] encounter [facility] Narrative No data available for this section [facility] No data available for this section [facility] No data available for this section [facility] Summary Purpose Family History No Family History Records FoundNo Family History Records FoundNo Family History Records FoundNo Family History Records Found No data available for this section No data available for this section No Family History Records Found No data available for this section No data available for this section No Family History Records FoundNo Family History Records Found Advance Directives No Advanced Directives Records FoundNo Advanced Directives Records FoundNo Advanced Directives Records FoundNo Advanced Directives Records FoundNo Advanced Directives Records FoundNo Advanced Directives Records FoundNo Advanced Directives Records Found Additional Source Comments INFORMATION SOURCE (unrecogn ized section and content) DATE CREATED AUTHOR 12/26/2017 [facility] DATE CREATED AUTHOR AUTHOR'S ORGANIZ ATION 10/13/2022 [facility] DATE CREATED AUTHOR AUTHOR'S ORGANIZ ATION 10/15/2022 [facility] DATE CREATED AUTHOR AUTHOR'S ORGANIZ ATION 02/06/2023 [facility] DATE CREATED AUTHOR AUTHOR'S ORGANIZ ATION 05/09/2023 [facility] DATE CREATED AUTHOR AUTHOR'S ORGANIZ ATION 08/07/2023 [facility] DATE CREATED AUTHOR AUTHOR'S ORGANIZ ATION 08/10/2023 [facility] Care Team (unrecognized sect ion and content) Senior Engineering Specialist Relationship Specialty Start Date End Date Tae Alcazar MD PCP - General Family Medicine 05/10/15 Senior Engineering Specialist Relationship Specialty Start Date End Date Tae Alcazar MD PCP - General Family Medicine 05/10/15 Senior Engineering Specialist Relationship Specialty Start Date End Date Tae Alcazar MD PCP - General Family Medicine 05/10/15 Senior Engineering Specialist Relationship Specialty Start Date End Date Tae Alcazar MD PCP - General Family Medicine 05/10/15 Source Comments (unrecognize d section and content) In the event this informatio n is protected by the Federal Confidentiality of Alcohol and Drug Abuse Patient Records regulations: The Federal rules restrict any use of the information to criminally investigate or prosecute any alcohol or drug abuse patient.[facility] HealthIn the event this information is protected by the Federal Confidentiality of Alcohol and Drug Abuse Patient Records regulations: The Federal rules restrict any use of the information to criminally investigate or prosecute any alcohol or drug abuse patient.[facility] HealthIn the event this information is protected by the Federal Confidentiality of Alcohol and Drug Abuse Patient Records regulations: The Federal rules restrict any use of the information to criminally investigate or prosecute any alcohol or drug abuse patient.[facility] HealthIn the event this information is protected by the Federal Confidentiality of Alcohol and Drug Abuse Patient Records regulations: The Federal rules restrict any use of the information to criminally investigate or prosecute any alcohol or drug abuse patient.[facility] Reason for Visit (unrecogniz ed section and content) Reason Comments Insurance Authorization Emgality 120MG/M L auto-injectors (migraine) Reason Comments Radiology MRI Reason Comments New Patient Specialty Diagnoses / Procedures Referred By Contgodfrey t Referred To Contact Neurosurgery Diagnoses Brain tumor (HCC) Procedures CONSULT TO NEUROSURGERY OFFICE/OUTPATIENT NEW HIGH MDM 60-74 MINUTES Stalin Reyes MD [address] [place] [address] Referral ID Status Reason Start Date Expiration Date V isits Requested Visits Authorized [id number] Closed PCP Requested Referral 12/17/2022 12/17/2023 1 [...] BE BASED ON THE PRIMARY CLINICAL RECORDS. [employer] provides no warranty or guarantee of the accuracy or completeness of information in this document.
[2023-08-14 14:59] LABS: Influenza Virus A Antigen Negative; Influenza Virus B Antigen Negative; Internal Control Within Normal Limits; SARS-CoV-2 Ag NEGATIVE (NEGATIVE)
[2023-08-14 15:00] LABS: Internal Control Within Normal Limits; Respiratory Syncytial Virus Not Detected (NOT DETECTE)
== END 2023-08-14 12:20 | disposition home or self-care (01) ==
LOC: LAB 12:19
PROVIDERS: PCP Family Medicine; Visit Provider Family Medicine
DX: J21.9 Acute bronchiolitis, unspecified (principal)
CPT/HCPCS: 87420; 87804; 87811

== ENCOUNTER 2023-08-21 14:54 | Outpatient (OUT) | payer OTHER, SELFPAY ==
--- NOTE | 2023-08-21 15:12 | XR_ITS ---
The [address] [address] Patient Name: MITESH BURGESS MRN: [id number] date: 1980 Sex: F Assigned Patient Location: LAB Current Patient Location: Accession/Order Number: [id number] Exam Date: 08/21/2023 15:17 Report Date: 08/22/2023 06:50 At the request of: PEPE ALCAZAR Procedure: XR knee LT 3V PROCEDURE: XR knee LT 3V HISTORY: left knee pain M25.562 COMPARISON: XR knee left 01/23/2023 FINDINGS: BONES:Mild narrowing of the medial joint space. No fracture, dislocation, articular surface irregularity, or periarticular osteophytes. SOFT TISSUES:No visible soft tissue swelling. EFFUSION:None visible. OTHER: Negative. XR/XR knee LT 3V IMPRESSION: 1. No acute bone abnormality. 2. Mild narrowing of the medial joint space which may represent degenerative changes or injury of the meniscus; stable compared to 01/23/2023. Electronically authenticated by: CHAY MENDOZA Date: 08/22/2023 06:50
[2023-08-21 15:37] LABS: Bilirubin Urine SMALL (NEGATIVE); Blood Urine NEGATIVE (NEGATIVE); Clarity Urine CLEAR (CLEAR); Color Urine YELLOW (YELLOW); Glucose Urine UA NEGATIVE (NEGATIVE); Ketones Urine TRACE mg/dL (NEGATIVE); Leukocyte Esterase Urine NEGATIVE (NEGATIVE); Nitrite Urine NEGATIVE (NEGATIVE); Protein Urine NEGATIVE (NEG/TRACE); Specific Gravity Urine >=1.030 (1.005-1.025); Urobilinogen Urine 0.2 EU/dL (0.2-1.0); pH Urine 5.5 (5.0-9.0)
[2023-08-21 15:46] LABS: Alanine Aminotransferase 26 U/L (14-59); Albumin Level 3.4 g/dL (3.4-5.0); Alkaline Phosphatase 118 U/L (46-116); Anion Gap 14.8; Aspartate Amino Transferase 12 U/L (15-37); Bilirubin Total 0.4 mg/dL (0.2-1.0); Calcium 8.9 mg/dL (8.5-10.1); Carbon Dioxide 23.1 mmol/L (21.0-32.0); Chloride 106 mmol/L (98-107); Estimated GFR (African America >60 (>=60); Estimated GFR (Non-African Ame >60 (>=60); Globulin 3.4 g/dL; Glucose 111 mg/dL (74-106); Potassium 3.9 mmol/L (3.5-5.1); Sodium 140 mmol/L (136-145); Total Protein 6.8 g/dL (6.4-8.2)
[2023-08-21 17:07] LABS: Free T3 4.34 pg/mL (2.18-3.98)
== END 2023-08-21 14:55 | disposition home or self-care (01) ==
LOC: LAB 14:58
PROVIDERS: PCP Family Medicine; Visit Provider Family Medicine
DX: R10.9 Unspecified abdominal pain (principal); M25.562 Pain in left knee; E03.9 Hypothyroidism, unspecified
CPT/HCPCS: 36415; 73562; 80053; 81003; 84436; 84443; 84481; 87086

== ENCOUNTER 2023-09-06 12:11 | Outpatient (OUT) | payer OTHER, SELFPAY ==
--- NOTE | 2023-09-06 12:15 | MR_ITS ---
The [place] [id number] Patient Name: MITESH BURGESS MRN: [id number] date: 1980 Sex: F Assigned Patient Location: MRI Current Patient Location: MRI Accession/Order Number: [id number] Exam Date: 09/06/2023 12:30 Report Date: 09/06/2023 13:58 At the request of: PEPE ALCAZAR Procedure: MR knee LT wo con EXAMINATION: MR knee LT wo con HISTORY: left knee pain M25.562 COMPARISON: No relevant comparison available. TECHNIQUE: A complete multi-planar MRI was performed. FINDINGS: MEDIAL COMPARTMENT MEDIAL MENISCUS: No visible tear or significant degeneration. CARTILAGE: No visible defect. BONES: No marrow pathology, fracture, or significant arthropathy. MCL AND MEDIAL CAPSULE: Normal medial collateral ligament and medial capsule. LATERAL COMPARTMENT LATERAL MENISCUS: No visible tear or significant degeneration. CARTILAGE: No visible defect. BONES: No marrow pathology, fracture, or significant arthropathy. LCL/POSTEROLAT COMPLEX: Normal lateral collateral ligament, fascicles, lateral capsule and ligaments. ANTERIOR COMPARTMENT PATELLA: No marrow pathology, fracture, or significant arthropathy. CARTILAGE: Grade I chondromalacia genu of the patella and trochlea TENDONS: Normal. EFFUSION: None. No synovitis or loose bodies. ACL: Increased PD FS and T2 signal in the mid to distal ligament PCL: Normal appearing ligament. MENISCOFEMORAL: Normal meniscofemoral ligaments. OTHER: Negative. MR/MR knee LT wo con IMPRESSION: Mild sprain of the distal anterior cruciate ligament Grade I chondromalacia patellofemoral joint Electronically authenticated by: EDUARDO CROSS Date: 09/06/2023 13:58
== END 2023-09-06 12:12 | disposition home or self-care (01) ==
LOC: MRI 12:11
PROVIDERS: PCP Family Medicine; Visit Provider Family Medicine
DX: M25.562 Pain in left knee (principal); S83.512A Sprain of anterior cruciate ligament of left knee, initial encounter
CPT/HCPCS: 73721

== ENCOUNTER 2023-09-11 11:30 | Outpatient (OUT) | payer OTHER, SELFPAY ==
--- OUTSIDE RECORDS SUMMARY | 2023-09-11 11:39 | XMS_ITS | CCD ---
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 above: Result Comment: Steffanie gupta Signed By: Chandni Hart M.D.\Date and Time Signed: 03/15/23 03:33 EDT ED [...] these instructions at home: Medicines ? Take vypw-nnb-wzrudqu and prescription medicines only as told by your health care provider. ? Ask your health care provider if the medicine prescribed to you: ? Requires you to avoid driving or using heavy machinery. ? Can cause constipation. You may need to take these actions to prevent or treat constipation: ? Drink enough fluid to keep your urine pale yellow. ? Take iaqy-dws-ykzuuaj or prescription medicines. ? Eat foods that [...] different or (more content not included)... Normal [facility] ED Patient Summaryon 023 ED Patient Summary (Inserted Image. Lucie ble to display) [address] [address] Patient Discharge Instructions Person Information Name: MITESH BURGESS Age: 42 Years Arrival Date: 03/14/2023 21:26:36 Discharge Diagnosis: 1:Migraine headache Primary Care Physician: Pepe Alcazar MD Provider Information Primary Provider: Chandni Hart M.D. Advanced Divine Healer:None The exam and treatment you received in the Emergency Department were for an urgent problem and are not intended as complete care. It is important that you follow up with a doctor, nurse practitioner, or physician?s office support assistant for ongoing care. If your symptoms become worse or you do not improve as expected and you are unable to reach your usual health care provider, you should return to the Emergency Department. We are available 24 hours a day. MITESH BURGESS has been given the following list of patient education materials, prescriptions and follow-up instructions: Follow-up Instructions: With: Address: When: Pepe Alcazar [address] [place] [address], [place] [address] Business (1) In 3 days [...] opioids can be used to help relieve qrltgqcc-cw-zmpzro pain and are often prescribed following a [...] be struggling with addiction, tell your health home care assistant and ask for stacie (more content not included)... [facility] Prescriptions/Work Noteson 0 03-15-2023 Prescriptions/Work Notes [id number]#1.00CD:1 27 [facility] Consent for Treatmenton Consent for Treatment [id number]#1.00CD:12 7 [facility] CNOVon 02-05-2023 CNOV Office Visit (NSCAMN ) ----- MITESH BURGESS ([id number]) 1980 F Date Time Provider Department 02/05/23 9:30 AM NATHANAEL RYAN NSCAMN During your visit today, we recorded the following information about you: Temperature Pulse Respiration Blood pressure 97.9 degrees 75/minute 18/minute 110/64 Weight Height 102.2 kg 1.595 Ade Tee Ma 02/05/2023 9:45 AM Signed Additional intake questions: Has the patient had fever, nausea, vomiting, diarrhea, constipation, fatigue for > 1 week? No Does the patient have a decreased appetite? No Does patient want to see a Warp Preparer? No (yes to any of above refer [...] New Patient Consultation Referred by Stalin Reyes [address] [facility] [address] Diagnosis: skull hemangioma Subjective History of Present [...] (more content not included)... Normal [facility] MRI BRAIN WO/W IVCONon 01-24 MRI BRAIN [...] anxiety, depression, skull mass, seen in the [facility] for: Dizziness, headache [...] and is most compatible with intraosseous hemangioma. Collections Associate: DONNELL Transcribe Date/Time: Jan 24 2023 2:35P Dictated by : DONAL BURNS MD This examination was interpreted and the report reviewed and electronically signed by: DONAL BURNS MD on Jan 24 2023 2:42PM EST [id number] Normal [facility] ----- MITESH BURGESS ([id number]) 1980 F Date Time Provider Department 12/18/22 EDILBERTO TIRADO [facility] During your visit today, we recorded the following information about you: Edilberto Tirado RN 12/18/2022 4:55 PM Signed [facility] received prescription(s) for Emgality 120MG/ML auto-injectors (migraine). Benefits investigation was conducted, indicating that a prior authorization is required. PA was initiated and pending review through [employer]aiya[employer]ao. All pertinent clinical information was submitted to insurance. CMM Garcia: [id number] Ordering Provider: MD Celestino Etienne Alisha, RN [facility] P: , F: Edilberto Tirado RN 12/20/2022 3:59 PM Signed Ambulatory Pharmacy Prior Authorization Note Provider Intervention Required?: No- Pharmacy completed on your behalf. Rx Plan: Medicaid [facility]) Drug: Emgality 120MG/ML auto-injectors (migraine) Cover My Meds Garcia: [id number] Determination: Approved Prior Authorization/Case #: n/a Prior [...] refills. Prescriptions will now be processed through [facility] for determination of next steps. For questions relating to this submission, please contact [facility] at [phone] Allergies As of Date: 12/18/2022 Noted Allergy Reaction ADHESIVE TAPE (ROSINS) 03/25/2018 9 - Itching CLINDAMYCIN 9 - Itching CODEINE 05/12/2015 16 - Unknown LATEX, NATURAL RUBBER 03/25/2018 9 - Itching SEASONAL ALLERGIES 05/12/2015 16 - Unknown Date Reviewed: 12/17/2022 Reviewed by: Mary Matta MA - Fully Assessed Reason for Visit: Insurance Authorization [5053] Cmt: Emgality 120MG/ML auto-injectors (migraine) Prescriptions as [...] Encounter Status:Closed by EDILBERTO TIRADO on 12/20/22 [facility] Margarita 12-17-2022 CNOV Office Visit (NEADFV ) ----- MITESH BURGESS ([id number]) 1980 F Date Time Provider Department 12/17/22 1:30 PM STALIN REYES During your visit today, we recorded the following information about you: Pulse Blood pressure Weight Height 71/minute 103/72 101.2 kg 1.6 m Stalin Reyes MD 12/17/2022 2:28 PM Signed [facility] Follow up/ Established patient visit Individuals who were included in, or assisted with the encounter were: Mitesh Burgess Stalin Reyes MD Chief Complaint/Issues: Mitesh Burgess is a 42 year old R handed female w PMH chronic migraine stopped Emgality half year ago, anxiety, depression, skull mass, seen in the [facility] for: Dizziness, headache [...] Assessment AND Plan 12/17/2022 - General Neurology, tSalin Reyes MD ASSESSMENT Mitesh Burgess is a 42 year old R handed female w PMH chronic migraine stopped Emgality half year ago, anxiety, depression, skull mass, seen in the [facility] for: 1. Dizziness, [...] without contra (more content not included)... 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 Normal [facility] Comment on above: Result Comment: Elec [...] numbers. This can be done either in [place] ([place] or metric measurements. Note that charts and online BMI calculators are available to help you find your BMI quickly and easily without having to do these calculations yourself. To calculate your BMI in [place] ([place] measurements: 1. Measure your weight in [...] for Disease Control and Prevention: www.cdc.gov ? [place] Heart Association: www.heart.org ? National Heart, Lung, and Blood [place]: www.nhlbi.nih.gov Summary ? Body mass index (BMI) is a number that is calculated from a person's weight and height. ? BMI may help estimate how much of a person's weight is composed of fat. BMI can help identify those who may be at higher risk for certain medical problems. ? BMI can be measured using Israeli measurements or metric measurements. ? BMI charts are used to identify whether you are underweight, normal weight, overweight, or obese. This information is not intended to replace advice given to you by your health care provider. Make sure you discuss any questions you have with your health care provider. Document Revised: 03/16/2020 Document Reviewed: 01/22/2020 [employer] Patient Education ? 2022 [employer]. Orthopedics Ankle Sprain, Phase I Rehab An [...] by your health care provider. Stretching and xfjsg-ct-geluxx exercises These exercises warm up your muscles and joints and improve the movement and flexibility of you (more content not included)... Normal [facility] Patient Letter FTon 2022 Patient Letter [facility] (Inserted Image. Lucie ble to display) November 20, 2022 MITESH BURGESS [address] [place] [address] Please excuse MITESH BURGESS from work . Date and/or Time of Absence: 11/19/22 Restrictions: None Comments: Please excuse due to an acute illness. Provider Signature: Yamile Muller APRN, FNP-C Nurse Practitioner [address] [place] [address] Normal [facility] Office Visiton 10-13-2022 Follow-up visit [id number] Georgia Burgess 1980 F Date Provider Department Center 10/13/2022 [facility]ARDO [facility] No family history on file Level of Service:53074 CO OFFICE/OUTPATIENT ESTABLISHED MOD MDM 30-39 MIN (57,GC) Reason for Visit and Comments: Follow-up [486156] Normal [facility] Coding Summary.on 10-03-2022 Coding Summary. CD:[id number] Ww+PG hlYWQ+EC1HIZWxT58qrQTvwF1 aD9ZKIKmLTdhgURWQNKmOQfEo biJyPK1rdKIoOWKa IC8+FQ6xBRPmCbsnaZMke7P7a KE8V21aba6hQKxdeSS4PEIiKd Yvbcwox7dbxHj0BCerFhzzGrA t HGYyiL04DDE1dX42Dn33eENzg IJhi8bqsTv0LqNrUMPvTPJ8qS scCEbdr7HeQWKlX64gnEScs4G 6 XFMpcBhpkMIdHfAndPX5oW7oG Zdfqkmvi7apgmdqVzo3wk67oI Alo4W3cNJ7O8HsztD2RDQayKU g IfrbdKDQuW2ygjqni3xrixotH aZqAJBtICd7FGf8EYWwiTfpVq SpJH18NXW7EFGhwzMoD0VgJCH s gPoqHeN3o0U6Yn1CI2TRXcvgT 1VNTUFSWTwvdGQ+VN28ta97H2 WoSouuGbq6BUMoBSL3fJX3cC7 n THHbHOuvu8M1xYU0O9OwkhYlg v5mt2kfLSUmXXhzG15gnKAnc0 Q3ITWdiDP4SRLmrDftSkUycW8 3 Oyc+RRSudTdxe0CoDfyte8ddm 7gdePm1ZzgdLJRctbGzoPjeGE A7g9FlEj1qSGWhiXT0uHN6gT9 i ByWkSbB7KAnaX420EpEfcRNuU sxkF66bY6VcuSP+TLSuQgm4EK IghXbkPT6yJ2NsAMJdssdqgTY m hDtlZS5tGBKtowevZIRraY7zN ZMhA9z9PfYjOdH8GRgiL2FcOB LtizhaQw14cP3hHbLkBhO6FNd u L4PjqlP3ZNZolXXsGVjkJKI7S 65hh9C1PXXoXQAlYAW8aZY3aE 1hbGlnbjogbGVmdDsgdmVydGl j NHssJNbqC935MPOwwBqeLoKgG GluZyBEYXRlOiAgMDMvMjkvMj AyMzwvdGQ+QAExCQT4aIlhMFI n nNNtRJjwEk0owHqegScyYX5dM SNspgesUWRmnM9gEXImhWHddK dsGQ4rJWBxtuvuy513XiZhWJD 0 DWXaaRMfO9FaaC8iHmXpCMXhP DMaU5JxvXOqFAzcN542QWsnSo B5KFXbywYtT0UjKZNkiPumDiX 0 h2O0Pr2Kx0SoykdpE0YqwWRzZ uPmKzmyCXb2I0QmIzeixUF+PC 11AGJrJO47HCn6JYF4lWldGHf i SRFnK0LrfR3lYgQfGRKcUVMwY yc+PHRhYmxlIHdpZHRoPScxMD ZuWwPyqCtpIA1pNm5dYGLgFAG v fRpdeLVaRzJav0mwSAJtTMckT J1lvPaoA6LawBV7WYEwf3e2Vf 39V03sJ1TpaBH+XZHbrMR4qFK 0 rP3jJpLnLkT0UEuhM073BvUwl CZyUmnwi9mcb5gtmBh3HqD8KE SpfcGilVnzWSG5i9JgEx97T91 s IHdpZHRoPSIxNSUiIHZhbGlnb o6udY8xKt1+WXAnsJW2tQV5gG 3jJpHdPqI6DTeeE523SxVjrVA v Hboog7zqh6nloSv9JuHdKIYac kWxnJlkHPF5h1SnPk73T4JavZ bip2XlMjh0kg96aEZgi6G1jQR 9 I5YySYVjwckcaKZbqDqbVG5tQ GUeddalEFCrmW5iKPIeL6x4Tk LsGlH3NBtoE2FmbeE5JMPngPH g ZIOxhULHmF2yxzgql9fvqiemG bKtGWReQMn5MZf2UYPyiRzsEq PvMAS2HqZ0DWO9cUHtfC7jqNs n dfnkaU0wKym+LZC9nBDloOYYV H3hSrzjaZL+PTBuAJN5lRcmLZ anLXFmdA8zSGXdE4m1YgYrHeT 1 NEpiA7FjeaB1BUBzvFVkRIXxv MZPhJ6pudmjm1gopgyyIxRoLN OhVTt9NZq0HJUjfIvpRpXsGGJ 0 WuX1XQM6eIUacH9zdDkdhzaoi G9wOyc+UpritIlhZRB0ZPf7T8 MrNwz7MNFwmNpoJW8jaOTuPLi u Cz4iqNurxLodML8xPWYuidkil 640MvTby0jaUNWwpNBxNHzrBO G4M00mz3E1THZxYUGcVEW1nJT 4 pL1cqUaqmbfmqBFjqEvazoSgr UkvPUppVNmaA053CBAbfFhmKe YbRMw9U3YfYpz4TNOahXafQB5 n rCTsPSagAh3jhGyjdVyuFD1jT TRyhqqbd477AnJkb0kjNPQkuN IzOOmbNUE3Z13uj6C3UILlFSH w CUB1fQV6oA3maWcocxxxyKBth PpsilLhkYxwYFuxYYcsH421BH QfvBbgNdLjeDe4F9UqZan7EUP z yIrlAO7coVFkLIbwKn8ubNxdc EtpZA9cDKWumxfwp791ZlFjr9 wfOFMciPSlWWigUTM2D62wz4O 6 CVDyABPfNBZ1lDG2zZ1wpIymn jogbGVmdDsgdmVydGljYWwtYW faS625OFZzsVvyQlTekJwnelZ g MEnmYJd1G7WbRwpadIX+PC90Y WGnFF56qVNtoITji4auvNc4Eh PoZQOoRXJ2aHtaVNqdv4IaAAV t I84avDUub3D9VQKxrGkahQBoQ wZxwTK7oL1dYIccxonot7lovx amBvvhz7awcr75sW83R32sLWx p ARZrYTHlJWBeGCCdhXxujn6zj G9wIi8+UVYtzDD0oJN8bK3xTU LrKxQ3CJpmS281IiMkxYPpFax j c6afw8ysoQk6OsN2LCYwdfAad OdqFXF7o5JuQt21D66nIYyzGD PuCCCdCSZyZBXlyTtlza7idB1 w Ii8+ZRQrySD0bZB0iG2qOiYmH cH1RCouV688ZsAyjKIiTpxlW6 4nC4ZmhJK+IPGcEmh3FNYitWc s FW8jaIRiRKfmXj0qPJT2HvQnW kOvVVzvA4QtPBRbcwvowxaijR Z5KNJtVIIehE29Mp6rwRmoZRB w mDSFsX0sujrtf1matracCpHzW ACkLRk1PYt1PSBkgIyhXvXrBE G3AlT5NJE6cUSwoL6wlTnixpi g qY4dH7LkGVYrcpuxSw35gN8oX sHvHiC2YYglTzd+PLcLJR5LMW VDT46EFwwOCKUnFCrxnZX+PHR k XZX7vGouTTgfHTUqzO7sVZKaR 4m6EaEqVqF5ITagP5HzZOYiuq cwDy80jR3aFiWcXpA3OKgsA6E v auZ9GWYgpGAzHCtxDQZ1E27ix 1F9GBUfBLFcXZQ4qHY4nT0mwX lnbjogbGVmdDsgdmVydGljYWw t VRuhD091ISAxhZkuZwA7KeK8C iF8Xib3Q8RpSqs1GFKoaMqgUU 3ipXLtNOhsRh6zlIkzeIriGT5 w LFHkoytzLCCrgN1dSNXxgILfq VosAZ5rSODiuisms151OkEiNQ E0DAXxxNXnW1PdrT3wSrPuNFJ w HJMoS5CfjGNeNWyvJ341XXqhO jZ3QSWrfcIdK8EoDDLtjKjrZn R6v0S8Pq43RiRISMFaqvtsrGQ + VCPlWCM1bWnkRGuuNVJldL5xT BSwZ7u3BaJnPqU4BJciO4OeGU VnsdkdTj64aX4pFeNsTtI1ZPz u J7JejgK4GEDeiLCuEZscTEC8X 87st5R9JAThYZAnGIQ7tXZ7iD 1hbGlnbjogbGVmdDsgdmVydGl j KNgyRVemC154LORbyAqmQqUly WFsZTwvdGQ+TEGwBKE7wMybDF txHRVhwJ8jOZOsC2x7TdDtCaD 1 BCzpW8UrLXFxxeiwAa60bF2fD oHaTsM6SCghL8LqkdQ4QUOmgQ XeYIupAYT6H78cz7V0ZTYmVGM w WYU3vLN2dW1slKfqochhlDRre FqoikEqoJhrECqzRVzpA438UO RxsFzdWxPsvB7sWTCbUYyrbXR u dDwvdGQ+TI00wg72A5DaPehjF pu3ESWsCMY2jGB1oN1iOEArWT fcw8I5oCI2B3BaexFqio8gx7q s ARKkUWfqY86zjIFiz7C1ASXhz JD0WCPjuLfbCoOlsH27Zpc+PG EviSxtf1DeWhsjj9pjr5pxpGo 9 HmTwZVGoyhEggBoxDGD1d6TvR a66O61aIOirFSKhRRHoLBGyZW RtwEafvm8urL3pZs8+PGNvbCB 3 aRM0fS2hUcJmUuU3VHifV026P uNyjCPzEuwbp7dlu0kvfTy5Ry UkKPMnnpWhwJnnQEJ8y6JkYf4 8 H4RrrZhil1QaDmt6ne72oUJmx 4O7bAR1O1PnVWClgdqbzZDdmP stBN8zTXCdslwlXQUqtB7fPIB p F9c4SrIqCzF6PZadD8UwyaY7P FElaUKaEWKiaJVFxS8tlnjbj9 afkxgkFiAhROTjYIk8UJj7WHX s dNehCjPiIAW3OnN0TMQ9uQMie R4eoFgxeuiynK7pSri+UGh5c2 vftVQzRI8cuJZ3NV41GO84nOV g j1X6iMV0S1NmRMPblcidcfwxh LC4RXKaFEWtuU74Uf1huXiqNc 3dYAIyNTO5WRGcdXNvJ9AdkC6 y ImWoOOFoYBNxX7OzpKSoVLksA 016XBepFcG1ZXVdlzIpR4GlJF EaaYytMrF7d0Q5Op0VNC57IV5 0 JW95mJWsr6F7iXR4F5EgPOInr lqyizrbuCV4CDSqFJZueF21Pf 2rvKnkRg1mIWQlYJF2FYQhwUT z P9YydN0jGjVuULStXUIjP7Grd LOoSRhxG118QJrlRsI2XHGocw XxU1IsCHLvdCqmZiL2n8M5Oa5 N Lb65BH47AU11nZRbu6A9tCY6I 5PuPGQbcauyirpngYK8URBxEU IhbG37Uh0xvBcyQg3bCZFxHEZ 0 IVOlySLcA8LfsE7eWvYgCJZoO NTqL5XjiSYiSShcN987DXjmIw F2OKEryyLhN7MjPCFvcKsiJoY 0 p2K9Ty3FZQltliz8Y3KbUxhxj HI+JN87LXTePZ50hDStyPDaa8 xwrBr8TlFpKJTjKPN3iIsaSFe i l1ZcBYRd (more content not included)... Normal [facility] Consent for Treatmenton 09-06 Consent for Treatment [id number]#[id number]:1 27 [facility] Consultation Noteon 10-02-19 23 Consultation Note Patient: MITESH BURGESS Age: 42 [...] EA, Refill(s) 0, qid and prn sob/wheezing, [facility]pharmacy #[id number], 160, cm, 04/27/20 22:06:00 EDT, Height/Length Dosing, 98, kg, 04/27/20 22:06:00 EDT, Weight Dosing off work: off work, See Instructions, 1 EA, 0, Patient had a procedure with our services. She should be excused from work for 10/30/21 and 10/31/21, Supply pregabalin 200 mg Cap: 200 mg = 1 cap(s), Oral, BID, X 30 day(s), # 60 cap(s), Refills(s) 2, Pharmacy: [facility]/pharmacy #[id number], 158, cm, 08/14/22 9:29:00 EST, Height/Length Dosing, 91.6, kg, 05/18/22 11:25:00 EST, Weight Dosing pregabalin 225 mg oral capsule: 225 mg = 1 cap(s), Oral, BID, # 60 cap(s), Refills(s) 2, Pharmacy: [facility]/pharmacy #[id number], 158, cm, 08/31/22 9:15:00 EST, Height/Length Dosing, 91.6, kg, 05/18/22 11:25:00 EST, Weight Dosing pregabalin 300 mg Cap: 300 mg = 1 cap(s), Oral, BID, # 60 cap(s), Refills(s) 1, [id number] 158, cm, 10/01/22 10:45:00 EDT, Height/Length [...] cyst of lumbar spine / SNOMED CT 0741575042 / Confirmed Neuropathy / SNOMED CT 2776390827 / Confirmed Ascending aorta dilation / SNOMED CT 966752197 / Confirmed Anxiety / SNOMED CT 73946717 / Confirmed Bipolar disorder / SNOMED CT 39078464 / Confirmed Labral tear of shoulder / SNOMED CT 104825099 / Confirmed Resolved: At risk for falls / SNOMED CT 713743940 Problem added when Risk for Falls Careplan was initiated. Resolved due to patient discharge. Resolved: Migraine / SNOMED CT 66783059 Resolved: Seasonal allergies / SNOMED CT F31423MG-271Q-06E3-990O-3 754P9MMN439 Objective Vital Signs 10/01/2022 10:36 EDT Peripheral Pulse Rate 71 bpm Respiratory Rate 18 br/min Systolic Blood Pressure 133 mmHg Diastolic Blood Pressure 83 mmHg Mean Arterial Pressure, Cuff 100 mmHg General: Alert and oriented, No acute distress. Eye: Normal conjunctiva. HENT: Normocephalic, Normal hearing. Cardiovascular: No edema. Musculoskelet (more content not included)... Normal [facility] Comment on above: Result Comment: Elec tronically Signed By: Ade Hennessy PA-C\.br\Date and Time Signed: 10/01/22 11:01 EDT\.br\Electronically Co-Signed By: Hai JAY, Boy Wilson\.br\Date and Time Co-Signed: 10/16/22 15:58 EDT Office/Clinic Note-Physician on 10-01-2022 Office/Clinic Note-Physician [id number]#1.00CD:127 Normal [facility] Patient Correspondenceon Patient Correspondence [id number]#[id number]:127 Normal [facility] Patient History Officeon Patient History Office [id number]#1.00CD:127 Normal [facility] Coding Summary.on 09-26-2022 Coding Summary. CD:[id number] Ww+PG hlYWQ+EM4OXYAnF97vaVKurU5 aY3MZKOrJKnboEGKBKIrZSjMn yzIaGK2gxKXpTFIc IC8+LV5bFOVpQefljQWfn1L9g ED5Z91khy6wAEajjSF0IALsUt Zgfidoa6tyzTt1SKibDzgyGpR t NWNtmM87XHO1gS99Qc77aYBuc PEqg1buqVk3PaRtKKHnEHG1uJ bcZYjun7DvJDJwQ19kxGRwi9Y 6 WRLwzEaxqCBjVpKzbQT3cE3jG Imiobnpj0bbifiuDgn8kx79aA Icb4N8wKZ5F1HcseM1EOSnbUY g TwzsqFEDeZ8qyijon4kodnpnQ yYoGTPtAMx5QFn2CQNhmIvgId HePM16XVI0QFAbklXrW7KqHVM s dKbnZhB6s1I8Ix8IL0GHSruaZ 1VNTUFSWTwvdGQ+CB90rm52X6 TbGmrqOhc3RRBlOUK8iVH3hE7 n ZUEnKOwcf6G5hZA3N4SepyNyb n1gw9koOLIzDFajQ33qsAFsu2 V4LYAxoDP8SYSaqSteYiQiiL7 3 Oyc+NGYosYtvt6XsWmymf3yif 5gobEd3VnceKJAnibGptJilCX I3z9WtCl6kFWQzrLS5jFI7eR3 i KtYmZeA1HTzrN459KbLywGWzM rndW36nM4KeaTA+TVBhQpn9ZB FzoPloHI4pR7MmTAAbexuzfSX m xWtoVU3xHFYdcxoaCEEsoQ5hN PGrZ5g8BzZdJhC4LYlyN9EdXH BxhygeWo24nT3fZgHkIvN8VPt u K3UpsoG9JIMyjIMmDQkcJEE1U 64sw9T8JDWpIBZyKLE1wRA6dE 1hbGlnbjogbGVmdDsgdmVydGl j UVmyLGbyO930LVEtuSeeKcVcT GluZyBEYXRlOiAgMDMvMjIvMj AyMzwvdGQ+OYDgXDU9sBrqZOL n kLFhTPcpIx6ksZyxuAhzAC8dK UTozrksTPZgbW7oXRDngKPzcY gzKW5hCTWonfosc058XkVjWNW 0 IALszOCtL2UnoG8eWgQgPEKtD OElN5HgaQCtYQqoR363GZydCf H7HGUwwvItY3ErYJVhjGicNlO 0 r4Z0Oa1Is5LfcxdpR0KhtACcX mRuRcdcMSo1E1UhOalnbPQ+PC 97GSEgOE21HLw0IGY7pEyaFTm i EBMmN2MrfC9dLzGlELBaRILiA yc+PHRhYmxlIHdpZHRoPScxMD AxVmTlfJzmFE4mYj2gBGQeSEC v mXzkfFRqKjUnw1prHUDtKZysB Y2lnJfjX1YctNW8ZAJpr3i4Ao 05N74qF7GbsQS+LCOpkXI5jYG 0 tE0yJgRkUaA6FKpyV206CuQxf MToExkok8bhe6sbyPh4XoW1BV BucoPzhPreLEY7w1VdWx09V79 s IHdpZHRoPSIxNSUiIHZhbGlnb x4wgI2pXd9+EEIliJA1gEB0gT 6pVhDhDsV6SPurJ957UcIvdTW v Ralqt4sup3gskHt5ZnLhBQCuf uBlsNoiOXU6c2ByEd71R5BstM zeh5ObQac1ea90zAQbx3M5eIN 9 P4UnNISpgcrvqOLzmHnqWC0cS LCorkcdUZOdzJ2eFKFqT5u9Nz DkMzV2YRbyI2OukfJ5VDMscBP g WTMxwVZChV0zgqhcq8vaiktiW aCsAHLcLHo1BJe9JDXkbCeyKa RtRER3YaM6GBH1rGZlhM3veFl n rhlpyR2hVsd+SXV5tEDzgWUIW J9pEuyjmRC+JHIzUGF8gTwsHQ yrXEJdiR8eODRoE5s6WzShOjQ 1 ERvbA0HhwxB4JXOmzMXaWNXgd EKSyI1juehjy4lgbrueLpUfBB MmWDx7QZe6FQFynFmzPzVhPHS 0 TaR5YPJ1eTJxtH6ttZwaklmve G9wOyc+EcgbvAklAHR4FBv7M5 HjHwt4REIhoLiuRZ8ssWQpPPa u Yo0stPynvOfqIU0wZRXciagxu 570DjPqy8hpKNPfpVNcTPpjFV B4I90xd1Q7WMEeQCVjXMP9kZX 4 sQ4zkDudxjknlTOdcXsgfjVyc FwyEQsuXMouT300GCIumDkzJl RnGVv3L2OoLjq8EXDtmLwtYE8 n cYTxOMyaSh8epVxdfQjqIR3lX QMaladws189AqFci0ofTYYvfY DfTIqlHOV1W84dm8B6JMZtEOJ w TPS5bUV1vF9fgZddjjkreLGqb HeaomAhsRnwAXjgBLqfG923TQ DavPmkJmUijIx1G9DsBtd0UPZ z sPsrKG2apWOhGLouId0veGuck UbcDW9uMUKbfejnt632AbUcq9 xlHCFpgIAxZEaaBAF7O94pf8D 6 SFQhELXyTCO0gRR3bX2sbZeap jogbGVmdDsgdmVydGljYWwtYW vnR076CSViaRngMhJidBxzoeY g PCwpQXk1B7GmRljlvXM+PC90Y KYhPT18zCOfvLAxj0ajcOy6Du IhSTRkDOA3iKogUVbvz1IhFMR t Z05tuEJte1D1EDSdsXfyjRSgT eHtjVY3wF2hETxuyzgkf9dktn ldTirtk7nfch30jL08Y19gUXz p EDWcDXPgFMTtTDFieJmmod5hl G9wIi8+YBIhbZY2tIA8kE4sRH XhBlO8AMzwJ560HqPklAKcZvg j d4kar8iosKe8AaL0JAWrxhBtg LzgJFK1n8ZuOq37N14oDErgVJ XcTDXoNMYhVIDrrSfuji7ccT7 w Ii8+GVKjrBB4tBJ6vT4bEuIeL jV0TCwlI102TuNwwLDzJibtE3 9vO7PpdSV+XNNeChd0HRGwtAe s KS4biARaLHfcGb1zDYX6AzSuH uLsZAofQ7LrDSXmfyurvvpmzL P7NTRzBIBepA33Yi3ptInsETM w wTWHfR4rfhara0azpcfxOePrC CDrNOt6WGq5VNIqiMdoApRmOE L7GqP1NLQ7aMWzbW9uaDhwvut g oX3wL1CaBTWmztuhAo08lI5kJ hIjItQ0OLehRhg+GSlZOM2LZD DUZ86FPnjCIAZlUJukkES+PHR k FQS1lTefJRcsTAUxcF3oUQFlF 1n2LmJhXiA0FKspQ8WbTMCwvt quFn54mP9iUlRoYvD1PNrwS7G v fkN1IGMmdHQwYRpgYQO8X59ev 3X8FYYzXHTqWXO1yQZ6qI0zyK lnbjogbGVmdDsgdmVydGljYWw t JNinJ137YFDhgBrdRdP5BjK8Q aZ9Wnn7N3LoVco2GOQqoOgjNM 7qwPIyGXylZk8rkTrswVbvNN8 w AXHihfoxZQGnqW4aMBVqwDKdq RkeLV3iGLCbbjdir645HpJaZC V0GKPhvCIaI6ExkN0yRmThHUW w UEDaM9HenPReVFtdW476IXuwV jD0CSJgxqBoN0BzQIEujYakIh I7q9A2Bp68UrPKMUFgswdgnLL + IIWsCZD3sHhlNUdsVFAlmN8xF TVrE9c2BeKiHnL5RRamC6UlLE YhlgjjLf98gV6xEqZhIkD4UEt u B0UfrfW4DVZqxNYdJGoiWBO6L 79oz5I8WGHmFKFcSWV2lWN8vV 1hbGlnbjogbGVmdDsgdmVydGl j VOcbWWioH703SLWctKcePuPaa WFsZTwvdGQ+AGOiGGQ9fRdrKA ryORMloN7cKOUbO6r9FxJgReZ 1 BAhlO3KoXIIzblrfUb71tF6nV vCePnX3UStbI1TeljU8WPDgyC BoLWjmWXF5F60qn3H8KGDzOUV w CYV5aMG3oP3nxXqfmywlpTNfu ZyeqvBugLqnJDryCWdnG288NB LqxQorEk86aRXisOzyxpH0P0R k PjwvdHI+DD43EUBfIG68uZDic AVae1hyqCm5TkGsQGPfLEA9pP clXVgsz9UoYHAfK36iiDGse4B 6 DVCqbJndwKRvKoPetWY9xL0aF Anjmgous6akwiziVoeev2eove 56hN33A38tVBdjZAZdHYUhJWC i HDPfmFnmrq6myE1uVs6+PGNvb IF2gWP9hX0yRzJjYvP9EWyyO9 19DhVzvVEiHtzme5aig8uknRz 9 RoLxGEJczaYvtLsqVPB9d6TeR e64B22rUFqlSXLjWSEvJQQuPY MmbTgsim6laA2tTt3+IB3gz3i n sm72bL18fSH+UEQrZRJ5tBgtX QaoYGKnyV3kPMtdYmG9OXYzLt CfdA27hJEcUNoyMq4veNoerYo g YN5fKLOmigicu248TkZgz1mzB EVdhBJbICogQGV4B03jv8G4KS KgDVLzNNF1mRL2eQ0esCyhnbv g bGVmdDsgdmVydGljYWwtYWxpZ 818EIBqaRmwKuIjmTSaR5rqpy NWMJ4eMzwczMC+NDCfYOG1oOd l NGhqYNOhyG9sYZMzJ3c6CcTnL aI6RZtiV7MwkhL8WGZegXWrLM ZxwQOGfW6bztrgv2tsscytEtB w FMWlVKr6XMg5IQMgsAchYxZfN YJ6SyO0SZM3lVZjvQ5tdKhoih knuG3lMyd+RklOOjwvdGQ+PHR k QOG7gUoaWYxyMXCmtL0cVWKlC 8a8MmYjYxW9MZikM5AuzlJ8FP FsoWObXFJnnHXWpJ1rxkmbs4v v pbolGjDdPCZmMDz2NOv5QVYrs HntVuTkXCW9ShJ5JHQ6sDDwgZ 7lgHubkytaiY7mQxu+TVJOOjw v dGQ+DMUyLLN0tSbsTJdsZSAyu S6dMIYkA8b4DhGmLlV1RQfcZ2 GhdwE6SWSgwARrAHRxiUPSqS1 l ajgyy4durlkaKnMuUEOmQYn6I Bq9GUObtZzvHsBoUVG8CbG5KY L7yJRupA4feKlatpvheH6rIeb + DOO6OIA6KF88AD12B7AbBxcvp GFibGU+PHRhYmxlIHdpZHRoPS qvOSZtVsRayMwxZN8rBs4vCXN y LWNvbGxh (more content not included)... Normal [facility] Amylaseon 09-20-2022 Amylase [Catalytic activity/Vol] 36 U/L Normal 25-157 [facility] Comment on above: Performed By: #### 2 477028, 0005749, 61374869, 6759758, 59105350, 2498600, 3474819, 1308789 ####[facility] [address] [place] [address] Auto Diffon 09-20-2022 Basophils/100 WBC (Bld) 0.7 % Normal 0.0-2.0 [facility] Comment on above: Order Comment: Order Added by Discern Expert. Performed By: #### 2 268479, 2669679, 86286113, 3961126, 02805822, 8380467, 0785933, 9411579 ####[facility] [address] [place] [address] Basophils/Leukocytes Auto (Bld) [Pure # fraction] 0.1 E9/L Normal 0.0-0.2 [facility] Comment on above: Order Comment: Order Added by Discern Expert. Performed By: #### 2 128834, 8234787, 24040321, 0839022, 32387572, 8336350, 9094413, 6061395 ####[facility] [address] [place] [address] Eosinophils/100 WBC (Bld) 0.8 % Normal 0.0-8.0 [facility] Comment on above: Order Comment: Order Added by Discern Expert. Performed By: #### 2 571316, 9028675, 33998272, 1851509, 66604454, 6306137, 6126444, 3960188 ####[address] [place] [address] Eosinophils/Leukocyte s Auto (Bld) [Pure # fraction] 0.1 E9/L Normal 0.0-0.5 [facility] Comment on above: Order Comment: Order Added by Discern Expert. Performed By: #### 2 640827, 6930048, 38582168, 6279089, 82289154, 5981134, 6590068, 9775346 ####[address] [address] Lymphocytes/100 WBC (Bld) 19.3 % Normal 14.0-50.0 [facility] Comment on above: Order Comment: Order Added by Discern Expert. Performed By: #### 2 357755, 0434078, 63778863, 4356158, 58847238, 8412628, 6406312, 8246999 ####[address] [address] Lymphocytes/Leukocyte s Auto (Bld) [Pure # fraction] 1.8 E9/L Normal 1.0-4.0 [facility] Comment on above: Order Comment: Order Added by Discern Expert. Performed By: #### 2 533383, 5868772, 83447969, 4771212, 11992861, 1677728, 6254666, 0240710 ####[address] [address] Monocytes/100 WBC (Bld) 7.1 % Normal 4.0-14.0 [facility] Comment on above: Order Comment: Order Added by Discern Expert. Performed By: #### 2 604775, 8768652, 94282307, 3640994, 25905732, 2457118, 2203612, 2038995 ####[address] [address] Monocytes/Leukocytes Auto (Bld) [Pure # fraction] 0.7 E9/L Normal 0.2-1.0 [facility] Comment on above: Order Comment: Order Added by Discern Expert. Performed By: #### 2 773491, 3314699, 09213850, 5415984, 14074731, 7120856, 3035820, 1786507 ####[facility] [address] [place] [address] Neutrophils/100 WBC (Bld) 72.1 % Normal 36.0-75.0 [facility] Comment on above: Order Comment: Order Added by Discern Expert. Performed By: #### 2 248845, 6149864, 59068896, 6632708, 58082751, 2404486, 0955886, 5803010 ####[facility] [address] [place] [address] Neutrophils/Leukocyte s Auto (Bld) [Pure # fraction] 6.7 E9/L Normal 2.0-7.5 [facility] Comment on above: Order Comment: Order Added by Discern Expert. Performed By: #### 2 474383, 8209661, 56253087, 2735944, 27476124, 4119415, 7171663, 4505274 ####[facility] [address] [place] [address] CBC w/ Auto Diffon 3 Erythrocyte distribution width (RBC) [Ratio] 12.9 % Normal 10.9-14.2 [facility] Comment on above: Performed By: #### 2 569579, 5245772, 10278692, 7733367, 64253638, 1945768, 5468546, 3538625 ####[facility] [address] [place] [address] Hematocrit (Bld) [Volume fraction] 44.9 % Normal 34.0-46.0 [facility] Comment on above: Performed By: #### 2 753785, 8465263, 47090823, 6469457, 43673899, 9659853, 9288394, 7251960 ####[facility] [address] [place] [address] Hemoglobin (Bld) [Mass/Vol] 15.7 g/dL Normal 12.0-16.0 [facility] Comment on above: Performed By: #### 2 098997, 3702644, 98558469, 2538717, 43595337, 7421113, 5310875, 8736038 ####[facility] [address] [place] [address] MCH (RBC) [Entitic mass] 32.2 pg Normal 27.0-34.0 [facility] Comment on above: Performed By: #### 2 485291, 5592145, 58109412, 2560335, 89316023, 9007660, 3077869, 1510597 ####[address] [place] [address] MCHC (RBC) [Mass/Vol] 34.9 g/dL Normal 31.4-36.0 [facility] Comment on above: Performed By: #### 2 761569, 3027796, 68537344, 9353023, 44288127, 9685575, 4528485, 5271247 ####[address] [place] [address] MCV (RBC) [Entitic vol] 92.2 fL Normal 80.0-100.0 [facility] Comment on above: Performed By: #### 2 775963, 6199702, 12578607, 6406629, 52205223, 3704194, 4069468, 5406475 ####[address] [place] [address] Platelet mean volume (Bld) [Entitic vol] 8.3 fL Normal 6.4-10.8 [facility] Comment on above: Performed By: #### 2 090475, 4417574, 19004893, 5428288, 06801155, 7304009, 3162045, 0820156 ####[address] [address] Platelets (Bld) [#/Vol] 334.0 E9/L Normal 150.0-500.0 [facility] Comment on above: Performed By: #### 2 011410, 5189516, 24605591, 4451184, 49961268, 5944459, 7106673, 8030567 ####[facility] [address] [place] [address] RBC (Bld) [#/Vol] 4.9 E12/L Normal 4.3-5.9 [facility] Comment on above: Performed By: #### 2 617477, 1953817, 92919566, 8519672, 78221614, 0548936, 3499418, 4506077 ####[facility] [address] [place] [address] WBC corrected for nucl RBC Auto (Bld) [#/Vol] 9.3 E9/L Normal 4.0-11.0 [facility] Comment on above: Performed By: #### 2 772364, 1216616, 16936014, 6728669, 20918306, 9916067, 4815153, 7358303 ####[facility] [address] [place] [address] CHEMISTRYOrdered By: SYSTEM SYSTEM on 09-20-2022 Albumin [...] 12 mg/dL Normal 5 - 21 mg/dL [facility] Remisol Urea nitrogen/Creatinine [Mass ratio] 12 mg/mg Normal 10 - 20 [facility] Remisol CMPon 09-20-2022 Albumin [Mass/Vol] 4.5 g/dL Normal 3.3-5.0 [facility] Comment on above: Performed By: #### 2 402495, 7086849, 05953416, 4638384, 10451075, 3565225, 4454910, 1203900 ####[facility] [address] [place] [address] Albumin/Globulin (S) [Mass conc ratio] 1.3 Normal 1.1-2.2 [facility] Comment on above: Performed By: #### 2 768532, 4730039, 58777789, 0089287, 64051975, 0382990, 7970431, 3039440 ####[address] [place] [address] ALP [Catalytic activity/Vol] 90 Int._Unit/L Normal 21-98 [facility] Comment on above: Performed By: #### 2 277976, 2385115, 91988984, 7765599, 32909920, 6223683, 8255544, 4053503 ####[address] [address] ALT No additional P-5'-P [Catalytic activity/Vol] 23 Int._Unit/L Normal 6-46 [facility] Comment on above: Performed By: #### 2 142351, 1778954, 88339925, 0265343, 00108664, 9876937, 3195568, 0147992 ####[facility] [address] [place] [address] Anion gap [Moles/Vol] 11 mmol/L Normal 6-16 [facility] Comment on above: Performed By: #### 2 700085, 0885769, 66527487, 7240333, 30179881, 0721138, 9418847, 6036022 ####[facility] [address] [place] [address] AST [Catalytic activity/Vol] 24 Int._Unit/L Normal 5-43 [facility] Comment on above: Performed By: #### 2 027564, 8381930, 76686505, 3812278, 00867241, 5203228, 4709959, 8550158 ####[facility] [address] [place] [address] Bilirubin [Mass/Vol] 0.7 mg/dL Normal 0.0-1.1 [facility] Comment on above: Performed By: #### 2 663702, 7628959, 78646657, 2988705, 06982160, 9775441, 3613112, 2590892 ####[facility] [address] [place] [address] Calcium [Mass/Vol] 9.8 mg/dL Normal 8.9-11.1 [facility] Comment on above: Performed By: #### 2 639259, 5444457, 26837263, 2685646, 53627840, 1286067, 5043586, 5938604 ####[facility] [address] [place] [address] Chloride [Moles/Vol] 107 mmol/L Normal 101-111 [facility] Comment on above: Performed By: #### 2 483550, 3350094, 40353303, 2654320, 48521091, 0621081, 3876883, 0621761 ####[facility] [address] [place] [address] CO2 [Moles/Vol] 21 mmol/L Normal 21-31 [facility] Comment on above: Performed By: #### 2 375552, 8186782, 55143063, 7985395, 58346350, 5573188, 0239899, 2792309 ####[facility] [address] [place] [address] Creatinine [Mass/Vol] 1.0 mg/dL Normal 0.5-1.3 [facility] Comment on above: Performed By: #### 2 405974, 3240509, 02986564, 1537319, 90716392, 0779190, 2309543, 0250023 ####[facility] [address] [place] [address] Globulin (S) [Mass/Vol] 3.4 g/dL Normal 1.4-4.0 [facility] Comment on above: Performed By: #### 2 633485, 3785295, 71475834, 9418504, 68990679, 6932529, 3507735, 6231394 ####[facility] [address] [place] [address] Glucose [Mass/Vol] 124 mg/dL Normal 55-199 [facility] Comment on above: Result Comment: If t his glucose result represents a fasting glucose, interpretation should refer to the following reference range: 55-99 mg/dL Performed By: #### 2 825331, 0060809, 19037854, 7602837, 69427898, 9686395, 7426873, 5712193 ####[facility] [address] [place] [address] Potassium [Moles/Vol] 2.9 mmol/L Low 3.5-5.3 [facility] Comment on above: Performed By: #### 2 679883, 9390595, 27668946, 4735115, 54774379, 5798353, 5546425, 9180495 ####[facility] [address] [place] [address] Protein [Mass/Vol] 7.9 g/dL High 6.0-7.8 [facility] Comment on above: Performed By: #### 2 555438, 2066398, 05243552, 7837440, 98932490, 4043128, 4264118, 9945206 ####[facility] [address] [place] [address] Sodium [Moles/Vol] 136 mmol/L Normal 135-145 [facility] Comment on above: Performed By: #### 2 344870, 8969333, 52512065, 0942964, 15752972, 9741094, 2870832, 9104375 ####[facility] [address] [place] [address] Urea nitrogen [Mass/Vol] 12 mg/dL Normal 5-21 [facility] Comment on above: Performed By: #### 2 359779, 5985270, 97564543, 6958494, 64875810, 0958019, 3846938, 3059754 ####[facility] [address] [place] [address] Urea nitrogen/Creatinine [Mass ratio] 12 No Units Normal 10-20 [facility] Comment on above: Performed By: #### 2 320310, 6566572, 42404538, 9736546, 75623022, 4619757, 6733386, 5232865 ####[facility] [address] [place] [address] Consent for Treatmenton 09-05 Consent for Treatment [id number]:12 7 Normal [facility] HEMATOLOGYOrdered By: SYSTEM SYSTEM on 09-20-2022 [...] 4.9 E12/L Normal 4.3 - 5.9 E12/L [facility] HemeAutoSS WBC corrected for nucl RBC Auto (Bld) [#/Vol] 9.3 E9/L Normal 4.0 - 11.0 E9/L [facility] HemeAutoSS Ironon 09-20-2022 Iron [Mass/Vol] 67 microgram/dL Normal 35-153 [facility] Comment on above: Performed By: #### 2 150320, 8458192, 74512466, 4663592, 90509004, 7303628, 4573179, 6160862 ####[facility] [address] [place] [address] Lipase Levelon 09-20-2022 Lipase [Catalytic activity/Vol] 32 U/L Normal 13-58 [facility] Comment on above: Performed By: #### 2 456747, 6958434, 71546870, 9647625, 05972636, 5167306, 9431066, 8274959 ####[facility] [address] [place] [address] Physician Orderon 09-20-2022 Physician Order [id number]#[id number]:1 27 Normal [facility] Thyroid IIon 09-20-2022 Free T4 index Calc [Mass/Vol] 7.55 ng/dL Normal 5.90-13.10 [facility] Comment on above: Performed By: #### 2 430482, 4314629, 96078375, 8265897, 12392824, 1515859, 0509597, 4788633 ####[facility] [address] [place] [address] T4 [Mass/Vol] 6.8 microgram/dL Normal 4.6-9.1 [facility] Comment on above: Performed By: #### 2 878819, 2798429, 79110300, 6921091, 51788092, 1989318, 1140944, 7770823 ####[facility] [address] [place] [address] T4 uptake [Mass/Vol] 44.4 % Normal 32.0-48.4 [facility] Comment on above: Performed By: #### 2 964100, 8078522, 03088544, 4171673, 61457554, 8944532, 5524301, 1241279 ####[facility] [address] [place] [address] TSH Qn 0.49 m[IU]/L Normal 0.34-5.60 [facility] Comment on above: Performed By: #### 2 602294, 6982759, 04194198, 8109970, 78821983, 4655110, 1415487, 2145681 ####[facility] [address] [place] [address] eGFRon 09-20-2022 GFR/1.73 sq M.predicted among blacks MDRD (S/P/Bld) [Vol rate/Area] mL/min/{1.73_m2} Normal >=59 [facility] Comment on above: Order Comment: Order added by Discern Expert. Result Comment: eGFR is race adjusted. AA=. Performed By: #### 2 378708, 0728749, 30174555, 8416718, 25800498, 2401243, 5839622, 2698707 ####[address] [place] [address] GFR/1.73 sq M.predicted among non-blacks MDRD (S/P/Bld) [Vol rate/Area] mL/min/{1.73_m2} Normal >=59 [facility] Comment on above: Order Comment: Order added by Discern Expert. Result Comment: Bar Machine Operator brent kidney disease could be indicated at eGFR's of less than 60 mL/min/1.73m2. Kidney failure is indicated at less than 15 mL/min/1.73m2. Performed By: #### 2 301600, 0271679, 41002952, 1907495, 97049321, 8390257, 1884801, 4960125 ####[address] [place] [address] Coding Summary.on 09-05-2022 Coding Summary. CD:[id number]:[id number] Gh0bW w+PGhlYWQ+VH2VADDaB30vmKH euH3DB7kSCJ1JKHTQDQLBAP0T BS4caZO6LNjaL0UuwmIq IaawuOKmLQ77QNc6YUS8rZanH NyteD9rfMYxE7q9ByKdIZ25nW 20SCeoWGZvLdO0YkNzlleqmLH y K1ukAcYmyPJzZlg+PHRhYmxlI HdpZHRoPScxMDAlJyBzdHlsZT 0fIp0aTHCrXDItiHgtzJQrViG j p3epCFBwBKkcJI4jxWfxQ6Zrs KT4NOGaq9d1Qw89wSM+PHRkIH U0eFzqHPgzj027YtBcn1uqVQY 3 iQPdCFmfBEH3O67co3Z7NAGaU NDqMKB9pYA4pV4evXzcapqbJ4 KglVIfMaE9WFL0yOGosE7qhAb n rougaQ5qSwd+R97YRZ2XQJTKP J9BYgo5L4MjJyfmcCF+PC90YW BaAI16bKQmsZPpu2dvvCo5VwK w MAXqEYH4zOrmBHnse5EqIYKxY 48pePKdx2B5PPHvhYngwHBzQj VsgUB0mV2rOJsutjymg6fxhsx n Fhiuh1qkyi10zX84F25sJMmwS WXlLYU2VPYxGHPfxQhpnw4szW 9wIi8+ECfbp1zau7pmoUn0SqC w YNSwnuCqrGmnKPM9j2DiOl31L 3MhcVfhp9GyOmv2zl71gQCvc7 Q9uGE8KDpdMCAvwS7iTGyqCiA 6 DHQwCoDxeH10kVSyKHhzTr5ui SulrKgpGE0xYYYwwjfeJBFzpI 9cFJNzoBQehGvsID4dANVxxij m r524CpGpODA2XSXbdKOmX9Cwr H2gKdBvNOCfQQPnI5JdqHJqGW pkF123PGggEeE4KFSjvuEgS7E s GPGmeQlfHtV9m8B7Ve6Ou3Otc uytCPY6CCciXRWxHkBbDnKtAp W1U8MdRui4QTZqfTjdEY7vG8A h UIUggmmyjnnghTK4EYMqVXJdz Z04iOXhRHkmNm7ii6Q6t864WA WgCANwuZ07Ow7stUqmAXQtkZT U qJ3eolqar3teqbuqAbJjNGKuS Wd0XOt2ZBGcuMuiBuVeRPB5Gi A9ABF5oTHmpO3wyRbiktmiaQ4 w Oyc+G27pjB7aYVN5HFA0ltrtL BDckaYhJY13QV81P6VoVqxnsV FibGU+RMLkkxHopZvfQW5hCdH j c7fjj1KlVVmoZ8KxUVKpJIyoI kh2EGTzOVG0hJD5cD4bCEHkRY ssx6T6yAE1Q9DyitQrgj3tm7t s YLQkDFouG66hwORwe5E9DBBrr HT6VLCtaZsqYlVgeK02Hvp+PG TxtRuqn4EsTvdrk0ahq2kimXh 9 WcKvMPSctqSxdDfaFUB7b8DuX g14Z21uGJdzQLKiNFFtKIVdKH TdiNlrlx7hwY5kYm8+PGNvbCB 3 nUJ4fT4tMJPwZaJ3UZnoT637L dJgxYDuAhfvu9vpt1maiOa0Un OaGIMhmlLhiHbjPFF0b5GyHq5 8 V05bBLxhKGMzDHUzBFVzJEBrd Jclze7nnK1dIa9+TM3fx3eonh 95aK06sRE+PRVjGGW5oMsuDOs w GDJdtU2sDAnhEtB5DNLqIzDqk D32bFOrLTpiJf8odCthvEutZD 8nTOYurxujo132BbBhn5ysNUP w qNQkMGheJVT1F01cq0U5AKQpE XUnCMO5oJN5aD7wkTmgndxpbY JmvQjmysZdhHrkYCfgREcrG16 6 IHRvcDsnPlBhdGllbnQgTmFtZ Ni0Y4TjEwm1XHJgfSaeYN8guP JuQPwsIq4zgWndhFxrMN3gKPT p zzkrz599EzAbv1wnSDVbfLNcD RzbPGH1K51as2E0ITGgHTUtXQ C0pKO7qZ1ebRoyipxnbZRqvOd g ixCjlBsjEDygSHabW000SGWdj XarUuOplpMjJGMdgWU7YD29KG 14jEGcm6M0xMV8O7HyLWQmdug t ghbsfMH2TSVuFHJgqI27Ma8xx TbzZl6bPYKiERR5VFSseZSeB8 MgqN4wMgNrOHDiVSNoR8CthZY t VPxnV532XWlfCuM0XQXwkqNqK 9AnWHFkiDyuAuQ6k2Q1Px7QK9 R5RA40KM55xLCuf1S1cZF2P6T h VKKkqqbkihexwIK9AGMmCBArq X73Nz4umLgeYl6aAIAoCDR2LK SmmWBhO7LasO7lAgNsAAVmHSV w S3TxsDHcMSkkY524NFvkMcO5Z TCvxcPlT1WwYIWvvZghWcG8x5 P5Xx4MWQx3BY90HM83aMJkb6G 5 kYZ9S2TtYWAyioadjikceHK6V LPxYTArsG60Sd3bxLxdVb1gNW ZyTCL8SKJvwASkN5TuyH1wRlO j NCQvTLZlT4DhhAWuAVuiW388J OanAbX3RPInsjKyH8SfQSQkcC enTfY2u7X9Yf4LOEYpXS41WAG 5 uGK3SS00UG92P5DqMujrmNTvr +PHRhYmxlIHdpZHRoPScxMD TmCiPxkDkxTA6oUv4xDWQyICS v pMzquWGmMoZfo2scMMImMIeiY S3umAkpQ0WbcKK2KUMrw9q4Qn 52I36zF6WhpMT+MCBykSS3jPZ 0 aR2fMlHpZbU2YPpdQ593NpSgz HWgKlqor2num2cusXq5DnS7VV OckiUydTzaLTA1h9ArMe57I12 s IHdpZHRoPSIxNSUiIHZhbGlnb w4ipE8gNs7+OLRwyGU0gHF3xL 2xYbMxQqI0VHciM854NuTjsAF v Jkrgq6ulv5kcbFp7KtNfOVZtk xRefZpuTXL1p9MnXn96T2RxuO vcr5XxApt2bs50nYEkb5W3mOZ 9 N3WpMBEvcbbmtAVzmQhbME1xB XKvdlvyHHPtfQ8qEDEwA8o9Fa AxMzI1HHaoR6UlkmW9ZZDcnVP g JMvtNVW4R34gp6U5TVUrJQEvA SC4bOJ0bJ7qbMzzphcdvCBsdF deseJjqOfwPWnhEMeaW099ULF v tBmyRGYrlZ2zDGAriJVcnFuxU P3lAKOhefnoKpmXKRPPUgvnHL 7KIU5IFECMIY23P5ZwCcq4BXW z tRnxGZ2qpMFvCSjsVu2zpFmic HzcTZ9vNUCkbdekKEBdmW2iFB VacCQfjEvtLF1nQMQwtpphw36 0 TiVdWEZ2TRLqeGLrR3EchJ0vN fSpHMJoDNMbQ7GnsMLsBAtlO0 36NNljWyU9KOPuliDrT8OsXDV s wIxuYnJ1z4M0Ku2vXN6aJe4fA Lt8ZX88WL11iQVrb6Q5hFS1M7 QiQHEtqoshoiktyUK0WXMnZER w jE44hMSbXFvfCb4qg1C9i939T WInOSQsfU13Pn5soNxnGTGrrJ HHsR8skuehn9puflqaByOxTAT w AYi1LDc0SBOtfBhpSyKiLFU1Q dW8SBL8sSEamK1voMmvizkhsE 9wOyc+YMOySCZevxD7Q4BfRrh 0 KTJjnPiuIZ0pnLQwNQtcAt4ya SgnzJbfEI3mLPTomipbTPJfmN 2fZTOnzLWhlGsfOE3nNCFerrf m d793XmOuLLQ3PGXlsYXgQ8Itm G1uCvWaVDCoFLArV4ZhoTTqRW umG416KJxxTtR8NZVenuLtE8D s UNCgiDnfXeD6z4J5Ek8FTQ3wz GX4O5HzOhq4OTOmkTktBB9szL XsOUokEj4dqVywvWpgGT3lNSB p aacjZWRgpF2gCWDruKZdzDkwI X6fPBJwcchbu292XlDmBQZ0LD LibZKvA7WhqZ3xTnUpLUAxSWP w T2KweYChKLlmL161SKqaIgX8D XRhujDpZ8VbMWNjnZhlVqV5b2 A6Wt3VGMkoQZ4ldfAuPO9izoT 8 T3HyIaeihUS+OH77XWYrTH20k EIhbDQym2nqmQg7EePaCTGhLU M1wSfaLWixq6ZpGWBjP67xkXI w e9S8XRZnpBgupKNgLlYczUN0p A3wJTkfbdeqc7bkehkvJiqly3 bhke67mR33A14uTIxdYJBbFIM z AHXxVSLoyWhhel7uxI9gWt3+P ECooZV7wOM6dW0kDoGpNlB9DJ fdT293VgBkmKPhRehmk9eig4c k eKj1JdPxTFBtodRmlPhtUMO9k 9UoGg23B30pKAzgGGLxZFWxJP VyDVXlnTewtk6jsR9dKx2+PC9 j x8xowd47sU57bBM+TILcNLE5y UhfXDyvZXAcfR1jRQzvOiX4KS MbKaGyqB08lQWbZPffUx3spTt o yCyuTY4jUCEviiunf650NwKgp 9naJZWfbIZvHOszTQO6W91uo6 M2ZHMdPMJtVQI8jJZ9mE6rjZn n bjogbGVmdDsgdmVydGljYWwtY JkxT339AQIfiVadAeGfvVGnH7 sabrISLU6zPrdxmPT+PHRkIHN 0 xRjsOAbvTHNgyL4cMHMcY9g1D lUlWyR7GEuwZ1AqhoZ6YDDkeC HoWIZeeUFRwH0smauma6rgwkl g OqQtZBIqTFl4ENb6MEXxnIdjE cMvUKD9EpQ1RXY8lSUpyC1hsF gwxxlkwO0rAxl+RklOOjwvdGQ + GGBpVAS1nZkfYVltUYCbpT6vV FAbQ2t2WoVmYmQ9XIadF7Vpke R2JSCzfZPeDPJhaOMPlJ7ters j v3bdfmkrBsJqERPeGUx6VAq8O ATcrJecQqDwJYM7OgK3SLJ8lL QyfI1mdMfgzjtjfQ8oFpq+TVJ O OjwvdGQ+ZAMrFGN8dLacKXyuS ZWycN3zFBExB5g7RvTtBuT1QH vtI0LcdcO4ZAKbzLSfPISumPL U lN6oyhrez0fzbfqwAdMlBJSgW Ho8IMd1QUWtsKzqPbZfRTZ8Bg U6UYX2rBGupI0ptYdcdzrthS1 w Oyc+TBV9RBJ0KD54GZ08O0VpZ jwvdGFibGU+PHRhYmxlIHdpZH XrQTpsVBWoCeUkeCeyXS0uIq4 y ZGVy (more content not included)... Normal [facility] Consent for Treatmenton 08-09 Consent for Treatment [id number]#1.00CD:12 7 Normal [facility] Consultation Noteon 08-31-19 Consultation Note Patient: [...] labral tear. She had 2 injections at [place] and she is giving it some time. [...] day(s), # 60 cap(s), Refills(s) 2, Pharmacy: [facility]/pharmacy #[id number], 158, cm, 08/14/22 9:29:00 EST, Height/Length Dosing, 91.6, kg, 05/18/22 11:25:00 EST, Weight Dosing pregabalin 225 mg oral capsule: 225 mg = 1 cap(s), Oral, BID, # 60 cap(s), Refills(s) 2, Pharmacy: [facility]/pharmacy #[id number], 158, cm, 08/31/22 9:15:00 EST, [...] cyst of lumbar spine / SNOMED CT 9250464241 / Confirmed Neuropathy / SNOMED CT 0017501966 / Confirmed Ascending aorta dilation / SNOMED CT 107730161 / Confirmed Anxiety / SNOMED CT 89507098 / Confirmed Bipolar disorder / SNOMED CT 39697171 / Confirmed Labral tear of shoulder / SNOMED CT 390229928 / Confirmed Resolved: At risk for falls / SNOMED CT 864993988 Problem added when Risk for Falls Careplan was initiated. Resolved due to patient discharge. Resolved: Migraine / SNOMED CT 29242588 Resolved: Seasonal allergies / SNOMED CT [id number] Objective Vital Signs 08/31/2022 9:06 EST Peripheral [...] motion due to pain Integumentary: Warm, Dry, [place]. Injection site well-healed Neurologic: Alert, Oriented. Psychiatric: Cooperative, Appropriate mood & affect. Impression and Plan Patient is a 42-year-old female with a past medical history significant for sacroiliitis, chronic pain, and [place] (more content not included)... Normal [facility] Comment on above: Result Comment: Elec tronically Signed By: Ade Hennessy PA-C\.br\Date and Time Signed: 08/31/22 09:31 EST\.br\Electronically Co-Signed By: Hai JAY, Boy Wilson\.br\Date and Time Co-Signed: 09/11/22 14:52 EST Legal Correspondence Officeo n 08-31-2022 Legal Correspondence Office [id number]#1.00CD:1 27 Normal [facility] Office/Clinic Note-Physician on 08-31-2022 Office/Clinic Note-Physician [id number]#1.00CD:1 27 Normal [facility] Patient Correspondenceon Patient Correspondence [id number]#1.00CD:1 27 Normal [facility] Patient Correspondence [id number]#1.00CD:1 27 Normal [facility] Patient Correspondence [id number]#1.00CD:1 27 Normal [facility] Patient History Officeon Patient History Office [id number]#1.00CD:1 27 Normal [facility] Office Visiton 08-28-2022 Follow-up visit [id number] Georgia Burgess 1980 F Date Provider Department Center 08/28/2022 ED[facility]ARDO BLAND [facility] No family history on file Level of Service:55953 CO OFFICE/OUTPATIENT NEW LOW MDM 30-44 MINUTES (25) Reason for Visit and Comments: Pain [136] Normal [facility] US KIDNEYSon 08-27-2022 US KIDNEYS Begin Addendum [...] kidneys and bladder was performed by the corporate statistical financial analyst. [facility] static images are submitted for review. FINDINGS: [...] 3.1 x 2.2 x 2.[address]); no internal vascularity is noted. Renal [...] renal calculi. 3. No hydronephrosis. Normal [facility]on SARS-CoV-2 (COVID-19) RNA JAYNE+probe Ql (Unsp spec) Not detected Normal NOT DETECTED [facility] Comment on above: Result Comment: This test is not yet approved or cleared by the [place] FDA. When there are no FDA-approved or cleared tests available, and other criteria are met, FDA can make tests available under an emergency access mechanism called an Emergency Use Authorization (EUA). The EUA for this test is supported by the Supervisor Hanging And Trimming of Health and Human Service's (HHS's) declaration [...] L IPID, URIC, CMP, T7, TSH #### [facility] [address] [place] [address] Dr. Alejandra Crystal INFLUENZA A AND B AGon 08-16 [facility] SEE BELOW Normal [facility] Comment on above: Result Comment: Nega tive for Flu A protein angiten. Infection due to Flu A cannot be ruled out. Flu A angiten in the sample may be below the detection limit of the test. Performed By: #### O BSCRN #### [facility] [address] [place] [address] Dr. [facility] Normal [facility] Comment on above: Result Comment: Nega tive for Flu B protein antigen. Infection due to Flu B cannot be ruled out. Flu B antigen in the sample may be below the detection limit of the test. Performed By: #### O BSCRN #### [facility] [address] [place] [address] Dr. Alejandra Crystal INFLUENZA A AG Negative Normal NEGATIVE SEE COMMENT [facility] Comment on above: Performed By: #### O BSCRN #### [facility] [address] [place] [address] Dr. Alejandra Crystal INFLUENZA B AG Negative Normal NEGATIVE SEE COMMENT [facility] Comment on above: Performed By: #### O BSCRN #### [facility] [address] [place] [address] Dr. Alejandra Crystal MRI SHOULDER LT WO CONon MRI SHOULDER [...] by: CHAY MENDOZA Date: 2022-08-13 15:18 Normal [facility] XR ARTHRO SHOULDER LTon 02-0 XR ARTHRO SHOULDER LT EXAMINATION: XR AR [...] CHAY MENDOZA Date: 2022-08-13 15:07 Normal [facility]10 SARS-CoV-2 (COVID-19) RNA JAYNE+probe Ql (Unsp spec) Not detected Normal NOT DETECTED [facility] Comment on above: Result Comment: This test is not yet approved or cleared by the [place] FDA. When there are no FDA-approved or cleared tests available, and other criteria are met, FDA can make tests available under an emergency access mechanism called an Emergency Use Authorization (EUA). The EUA for this test is supported by the Supervisor Hanging And Trimming of Health and Human Service's (HHS's) declaration [...] L IPID, URIC, CMP, T7, TSH #### [facility] [address] [address] [address] Alejandra Crystal INFLUENZA A AND B AGon 06-06 INFLUANEGH SEE BELOW Normal [facility] Comment on above: Result Comment: Nega tive for Flu A protein angiten. Infection due to Flu A cannot be ruled out. Flu A angiten in the sample may be below the detection limit of the test. Performed By: #### I NFLUAB #### [facility] [address] [address] [address] Alejandra Crystal [facility] SEE BELOW Normal [facility] Comment on above: Result Comment: Nega tive for Flu B protein antigen. Infection due to Flu B cannot be ruled out. Flu B antigen in the sample may be below the detection limit of the test. Performed By: #### I NFLUAB #### [facility] [address] [address] [address] Alejandra Crystal INFLUENZA A AG Negative Normal NEGATIVE SEE COMMENT [facility] Comment on above: Performed By: #### I NFLUAB #### [facility] [address] [place] [address] Dr. Alejandra Crystal INFLUENZA B AG Negative Normal NEGATIVE SEE COMMENT [facility] Comment on above: Performed By: #### I NFLUAB #### [facility] [address] [place] [address] Dr. Alejandra Crystal INTERNAL CONTROLS Within Normal Limits Normal Wi thin Normal Limits [facility] Comment on above: Performed By: #### I NFLUAB #### [facility] [address] [place] [address] Dr. Alejandra Crystal MRI ABDOMEN WO W [...] CHAY MENDOZA Date: 2022-05-31 09:57 Normal [facility] INSULINon 05-30-2022 Insulin 23.8 uIU/mL Normal 2.6-24.9 [facility] Comment on above: Performed By: #### I NSULIN #### [facility] [address] [place] [address] Dr. Alejandra Crystal CBC AUTO DIFFon 05-29-2022 BASO # 0.0 103/ul Normal 0.0-0.1 [facility] Comment on above: Performed By: #### C BC #### [facility] [address] [place] [address] Dr. Alejandra Crystal Basophils/100 WBC (Bld) 0.6 % Normal 0.2-2.0 [facility] Comment on above: Performed By: #### C BC #### [facility] [address] [place] [address] Dr. Alejandra Crystal EO # 0.1 103/ul Normal 0.0-0.7 [facility] Comment on above: Performed By: #### C BC #### [facility] [address] [place] [address] Dr. Alejandra Crystal Eosinophils/100 WBC (Bld) 1.3 % Normal 0.9-7.0 [facility] Comment on above: Performed By: #### C BC #### [facility] [address] [place] [address] Dr. Alejandra Crystal Erythrocyte distribution width (RBC) [Ratio] 12.5 % Normal 11.0-15.0 [facility] Comment on above: Performed By: #### C BC #### [facility] [address] [place] [address] Dr. Alejandra Crystal Hematocrit (Bld) [Volume fraction] 41.2 % Normal 36.0-48.0 [facility] Comment on above: Performed By: #### C BC #### [facility] [address] [place] [address] Dr. Alejandra Crystal Hemoglobin (Bld) [Mass/Vol] 14.4 g/dL Normal 12.0-16.0 [facility] Comment on above: Performed By: #### C BC #### [facility] [address] [place] [address] Dr. Alejandra Crystal IG # 0.02 10e3/ul Normal 0.00-0.03 [facility] Comment on above: Performed By: #### C BC #### [facility] [address] [place] [address] Dr. Alejandra Crystal IG % 0.3 % Normal 0.0-0.5 [facility] Comment on above: Performed By: #### C BC #### [facility] [address] [place] [address] Dr. Alejandra Crystal LYMPH # 2.1 103/ul Normal 1.2-3.8 [facility] Comment on above: Performed By: #### C BC #### [facility] [address] [place] [address] Dr. Alejandra Crystal Lymphocytes/100 WBC (Bld) 32.5 % Normal 20.5-60.0 [facility] Comment on above: Performed By: #### C BC #### [facility] [address] [place] [address] Dr. Alejandra Crystal MANUAL DIFF REQ NO Normal [facility] Comment on above: Performed By: #### C BC #### [facility] [address] [place] [address] Dr. Alejandra Crystal MCH (RBC) [Entitic mass] 32.1 pg Normal 26.7-34.0 [facility] Comment on above: Performed By: #### C BC #### [facility] [address] [place] [address] Dr. Alejandra Crystal MCHC (RBC) [Mass/Vol] 35.0 g/dL Normal 29.9-35.2 [facility] Comment on above: Performed By: #### C BC #### [facility] [address] [place] [address] Dr. Alejandra Crystal MCV (RBC) [Entitic vol] 91.8 fL Normal 81.0-99.0 [facility] Comment on above: Performed By: #### C BC #### [facility] [address] [place] [address] Dr. Alejandra Crystal MONO # 0.6 103/ul Normal 0.3-0.8 [facility] Comment on above: Performed By: #### C BC #### [facility] [address] [place] [address] Dr. Alejandra Crystal Monocytes/100 WBC (Bld) 8.6 % Normal 1.7-12.0 [facility] Comment on above: Performed By: #### C BC #### [facility] [address] [place] [address] Dr. Alejandra Crystal NEUT # 3.6 103/ul Normal 1.4-6.5 [facility] Comment on above: Performed By: #### C BC #### [facility] [address] [place] [address] Dr. Alejandra Crystal Neutrophils/100 WBC (Bld) 56.7 % Normal 43.0-75.0 [facility] Comment on above: Performed By: #### C BC #### [facility] [address] [place] [address] Dr. Alejandra Crystal Platelet mean volume (Bld) [Entitic vol] 9.4 fL Critically low 9.5-13.5 [facility] Comment on above: Performed By: #### C BC #### [facility] [address] [place] [address] Dr. Alejandra Crystal PLT 294 103/ul Normal 150-450 [facility] Comment on above: Performed By: #### C BC #### [facility] [address] [place] [address] Dr. Alejandra Crystal RBC 4.49 106/ul Normal 4.20-5.40 [facility] Comment on above: Performed By: #### C BC #### [facility] [address] [place] [address] Dr. Alejandra Crystal WBC 6.4 103/ul Normal 4.0-11.0 [facility] Comment on above: Performed By: #### C BC #### [facility] [address] [place] [address] Dr. Alejandra Crystal FREE THYROXINE INDEX T7on FTI 1.78 Normal 1.30-4.50 [facility] Comment on above: Performed By: #### L IPID, URIC, CMP, T7, TSH #### [facility] [address] [place] [address] Dr. Alejandra Crystal T3U 33.0 % Normal 30.0-39.0 [facility] Comment on above: Performed By: #### L IPID, URIC, CMP, T7, TSH #### [facility] [address] [place] [address] Dr. Alejandra Crystal T4 [Mass/Vol] 5.40 ug/dL Normal 4.80-13.90 [facility] Comment on above: Performed By: #### L IPID, URIC, CMP, T7, TSH #### [facility] [address] [place] [address] Dr. Alejandra Crystal GLYCOHEMOGLOBIN A1Con 2021 ADA RECOMMENDATION SEE BELOW Normal [facility] Comment on above: Result Comment: ADA RECOMMENDED LIMIT 4.0 - 6.0 ADA THERAPEUTIC TARGET < 7.0 ACTION SUGGESTED > 7.0 Performed By: #### O BSCRN #### [facility] [address] [place] [address] Dr. Alejandra Crystal Glucose [Mass/Vol] 94 mg/dL Normal [facility] Comment on above: Performed By: #### O BSCRN #### [facility] [address] [place] [address] Dr. Alejandra Crystal HbA1c (Bld) [Mass fraction] 4.9 % Normal 4.5-6.2 [facility] Comment on above: Performed By: #### O BSCRN #### [facility] [address] [address] [address] Alejandra Crystal IRONon 05-29-2022 Iron [Mass/Vol] 74.0 ug/dL Normal 50.0-170.0 [facility] Comment on above: Performed By: #### I NFLUAB #### [facility] [address] [address] [address] Alejandra Crystal LIPID PROFILEon 05-29-2022 CHOL-HDL RATIO NORM SEE BELOW Normal [facility] Comment on above: Result Comment: 3.3 - 4.4 LOW RISK 4.4 - 7.1 AVERAGE RISK 7.1 - 11.0 MODERATE RISK >11.0 HIGH RISK Performed By: #### L IPID, URIC, CMP, T7, TSH #### [facility] [address] [address] [address] Alejandra Crystal Cholesterol [Mass/Vol] 127 mg/dL Normal <=200 [facility] Comment on above: Performed By: #### L IPID, URIC, CMP, T7, TSH #### [facility] [address] [address] [address] Alejandra Crystal Cholesterol in HDL [Mass/Vol] 33 mg/dL Critically low 40-60 [facility] Comment on above: Performed By: #### L IPID, URIC, CMP, T7, TSH #### [facility] [address] [address] [address] Alejandra Crystal Cholesterol in LDL [Mass/Vol] 60.4 mg/dL Normal [facility] Comment on above: Performed By: #### L IPID, URIC, CMP, T7, TSH #### [facility] [address] [address] [address] Alejandra Crystal Cholesterol.total/Cho lesterol in HDL [Mass ratio] 3.8 {ratio} Normal [facility] Comment on above: Performed By: #### L IPID, URIC, CMP, T7, TSH #### [facility] [address] [address] [address] Alejandra Crystal HDL NORMAL > or = 60 mg/dl - LO W CARDIOVASCULAR RISK <40 mg/dl - HIGH CARDIOVASCULAR RISK Normal [facility] Comment on above: Performed By: #### L IPID, URIC, CMP, T7, TSH #### [facility] [address] [address] [address] Alejandra Crystal LDL CALC NORMAL SEE BELOW Normal [facility] Comment on above: Result Comment: <100 mg/dl OPTIMAL 100 - 129 mg/dl NEAR OR ABOVE OPTIMAL 130 - 159 mg/dl BORDERLINE HIGH 160 - 189 mg/dl HIGH >190 mg/dl VERY HIGH Performed By: #### L IPID, URIC, CMP, T7, TSH #### [facility] [address] [address] [address] Alejandra Crystal Triglyceride [Mass/Vol] 168 mg/dL Critically high <=150 [facility] Comment on above: Performed By: #### L IPID, URIC, CMP, T7, TSH #### [facility] [address] [address] [address] Alejandra Crystal VLDL CALC 33.6 mg/dL Normal [facility] Comment on above: Performed By: #### L IPID, URIC, CMP, T7, TSH #### [facility] [address] [address] [address] Alejandra Crsytal PROF 14(COMP METB)on 022 Albumin [Mass/Vol] 3.8 g/dL Normal 3.4-5.0 [facility] Comment on above: Performed By: #### L IPID, URIC, CMP, T7, TSH #### [facility] [address] [address] [address] Alejandra Crystal Albumin/Globulin [Mass ratio] 1.2 {ratio} Normal [facility] Comment on above: Performed By: #### L IPID, URIC, CMP, T7, TSH #### [facility] [address] [address] [address] Alejandra Crystal ALP [Catalytic activity/Vol] 111 U/L Normal 46-116 [facility] Comment on above: Performed By: #### L IPID, URIC, CMP, T7, TSH #### [facility] [address] [address] [address] Alejandra Crystal ALT [Catalytic activity/Vol] 18 U/L Normal 14-59 [facility] Comment on above: Performed By: #### L IPID, URIC, CMP, T7, TSH #### [facility] [address] [place] [address] Dr. Alejandra Crystal Anion gap [Moles/Vol] 14.9 mmol/L Normal [facility] Comment on above: Performed By: #### L IPID, URIC, CMP, T7, TSH #### [facility] [address] [place] [address] Dr. Alejandra Crystal AST [Catalytic activity/Vol] 11 U/L Critically low 15-37 [facility] Comment on above: Performed By: #### L IPID, URIC, CMP, T7, TSH #### [facility] [address] [place] [address] Dr. Alejandra Crystal Bilirubin [Mass/Vol] 0.3 mg/dL Normal 0.2-1.0 [facility] Comment on above: Performed By: #### L IPID, URIC, CMP, T7, TSH #### [facility] [address] [place] [address] Dr. Alejandra Crystal Calcium [Mass/Vol] 8.9 mg/dL Normal 8.5-10.1 [facility] Comment on above: Performed By: #### L IPID, URIC, CMP, T7, TSH #### [facility] [address] [address] [address] Alejandra Crystal Chloride [Moles/Vol] 107 mmol/L Normal 98-107 [facility] Comment on above: Performed By: #### L IPID, URIC, CMP, T7, TSH #### [facility] [address] [address] [address] Alejandra Crystal CO2 [Moles/Vol] 22.3 mmol/L Normal 21.0-32.0 [facility] Comment on above: Performed By: #### L IPID, URIC, CMP, T7, TSH #### [facility] [address] [place] [address] Dr. Alejandra Crystal Creatinine [Mass/Vol] 0.82 mg/dL Normal 0.55-1.02 [facility] Comment on above: Performed By: #### L IPID, URIC, CMP, T7, TSH #### [facility] [address] [address] [address] Alejandra Crystal EGFR-AF SWAZI >60 Normal >=60 [facility] Comment on above: Performed By: #### L IPID, URIC, CMP, T7, TSH #### [facility] [address] [address] [address] Alejandra Crystal EGFR-NON AF SWAZI >60 Normal >=60 [facility] Comment on above: Performed By: #### L IPID, URIC, CMP, T7, TSH #### [facility] [address] [place] [address] Dr. Alejandra Crystal Globulin (S) [Mass/Vol] 3.3 g/dL Normal [facility] Comment on above: Performed By: #### L IPID, URIC, CMP, T7, TSH #### [facility] [address] [place] [address] Dr. Alejandra Crystal Glucose [Mass/Vol] 91 mg/dL Normal 74-106 [facility] Comment on above: Performed By: #### L IPID, URIC, CMP, T7, TSH #### [facility] [address] [place] [address] Dr. Alejandra Crystal Potassium [Moles/Vol] 4.2 mmol/L Normal 3.5-5.1 [facility] Comment on above: Performed By: #### L IPID, URIC, CMP, T7, TSH #### [facility] [address] [place] [address] Dr. Alejandra Crystal Protein [Mass/Vol] 7.1 g/dL Normal 6.4-8.2 [facility] Comment on above: Performed By: #### L IPID, URIC, CMP, T7, TSH #### [facility] [address] [place] [address] Dr. Alejandra Crystal Sodium [Moles/Vol] 140 mmol/L Normal 136-145 [facility] Comment on above: Performed By: #### L IPID, URIC, CMP, T7, TSH #### [facility] [address] [place] [address] Dr. Alejandra Crystal Urea nitrogen [Mass/Vol] 14.0 mg/dL Normal 7.0-18.0 [facility] Comment on above: Performed By: #### L IPID, URIC, CMP, T7, TSH #### [facility] [address] [place] [address] Dr. Alejandra Crystal Urea nitrogen/Creatinine [Mass ratio] 17.1 mg/mg Normal [facility] Comment on above: Performed By: #### L IPID, URIC, CMP, T7, TSH #### [facility] [address] [place] [address] Dr. Alejandra Crystal TSHon 05-29-2022 TSH 0.767 uIU/mL Normal 0.358-3.740 [facility] Comment on above: Performed By: #### L IPID, URIC, CMP, T7, TSH #### [facility] [address] [place] [address] Dr. Alejandra Crystal URIC ACID SERUMon 05-29-2022 Urate [Mass/Vol] 3.4 mg/dL Normal 2.6-6.0 [facility] Comment on above: Performed By: #### L IPID, URIC, CMP, T7, TSH #### [facility] [address] [place] [address] Dr. Alejandra Crystal VITAMIN D 25 OHon 05-29-2022 VIT D 25-OH 16.2 ng/mL Normal [facility] Comment on above: Performed By: #### I NFLUAB #### [facility] [address] [place] [address] Dr. Alejandra Crystal VIT D RANGES SEE BELOW Normal [facility] Comment on above: Result Comment: <20 ng/mL Vit D deficient 20 - <30 ng/mL Vit D insufficient 30 - 100 ng/mL Vit D sufficient >100 ng/mL Potential Toxicity Performed By: #### I NFLUAB #### [facility] [address] [place] [address] Dr. Alejandra Crystal MRI BRAIN WO W [...] are clear. The flow voids of the [place] are visualized, implying that the [...] by: TEZ CUBA Date: 2022-05-17 23:20 Normal [facility] US SINGLE QUAD RT UPPERon US SINGLE [...] by: LETY TAN Date: 2022-05-15 14:53 Normal [facility] COAGULATIONOrdered By: Nacho Mcguire on 04-23-2022 [...] 20 mmol/L Low 21 - 31 mmol/L [facility] Remisol Creatinine [Mass/Vol] 0.9 mg/dL Normal 0.5 - 1.3 mg/dL [facility] GFR/1.73 sq M.predicted among blacks MDRD (S/P/Bld) [Vol rate/Area] mL/min/1.73 m2 Normal >=59mL/min/ 1.73 m2 [facility] Chem S GFR/1.73 sq M.predicted among non-blacks MDRD (S/P/Bld) [Vol rate/Area] mL/min/1.73 m2 Normal >=59mL/min/ 1.73 m2 [facility] Chem S Glucose [Mass/Vol] 102 mg/dL Normal 55 - 199 mg/dL [facility] Potassium [Moles/Vol] 3.6 mmol/L Normal 3.5 - 5.3 mmol/L [facility] Remisol Sodium [Moles/Vol] 135 mmol/L Normal 135 - 145 mmol/L [facility] Remisol Urea nitrogen [Mass/Vol] 12 mg/dL Normal 5 - 21 mg/dL [facility] Remisol Urea nitrogen/Creatinine [Mass ratio] 13 mg/mg Normal 10 - 20 [facility] Remisol CHEMISTRYOrdered By: Lab ROP User on 04-11-2022 Glucose [Mass/Vol] 123 mg/dL High 55 - 99 mg/dL [facility] POC Subsection Comment on above: Result Comment: Madelaine toro RN/ POC Device SN [id number] Invalid Interpretation Code [facility] POC Subsection POC User ID [id number] Invalid Interpretation Code [facility] POC Subsection POC Username CHELE MENDOZA Invalid Interpretation Code [facility] POC Subsection HEMATOLOGYOrdered By: SYSTEM SYSTEM on 04-11-2022 Basophils/100 WBC (Bld) 0.8 % Normal 0.0 - 2.0 % [facility] Basophils/Leukocytes Auto (Bld) [Pure # fraction] 0.1 E9/L Normal 0.0 - 0.2 E9/L [facility] Eosinophils/100 WBC (Bld) 1.7 % Normal 0.0 - 8.0 % [facility] Eosinophils/Leukocyte s Auto (Bld) [Pure # fraction] 0.1 E9/L Normal 0.0 - 0.5 E9/L [facility] Lymphocytes/100 WBC (Bld) 21.3 % Normal 14.0 - 50.0 % [facility] Lymphocytes/Leukocyte s Auto (Bld) [Pure # [...] 5.6 E9/L Normal 2.0 - 7.5 E9/L [facility] HEMATOLOGYOrdered By: Esteban Liu on 04-11-2022 Erythrocyte distribution width (RBC) [Ratio] 12.7 % Normal 10.9 - 14.2 % [facility] Hematocrit (Bld) [Volume fraction] 39.6 % Normal 34.0 - 46.0 % [facility] Hemoglobin (Bld) [Mass/Vol] 13.7 g/dL Normal 12.0 - 16.0 gm/dL [facility] MCH (RBC) [Entitic mass] 31.3 pg Normal 27.0 - 34.0 pg [facility] MCHC (RBC) [Mass/Vol] 34.7 g/dL Normal 31.4 - 36.0 gm/dL [facility] MCV (RBC) [Entitic vol] 90.3 fL Normal 80.0 - 100.0 fL [facility] Platelet mean volume (Bld) [Entitic vol] 7.6 fL Normal 6.4 - 10.8 fL [facility] Platelets (Bld) [#/Vol] 260.0 E9/L Normal 150.0 - 500.0 E9/L [facility] RBC (Bld) [#/Vol] 4.4 E12/L Normal 4.3 - 5.9 E12/L [facility] WBC corrected for nucl RBC Auto (Bld) [#/Vol] 8.1 E9/L Normal 4.0 - 11.0 E9/L [facility] CT HEAD WO W CONon 2 CT HEAD WO W CON Begin Addendum # 1 The left cerebellar tonsil lies below the foramen magnum, the exact level cannot be determined as this extends off the image [id number]. IMPRESSION: Low lying left cerebellar tonsil Original [...] abnormal postcontrast enhancement Limited exam with poor [id number] ratio, this is particularly on the postcontrast images IMPRESSION: Limited exam, no acute abnormality observed Normal [facility] CBC AUTO DIFFon 03-29-2022 BASO # 0.0 103/ul Normal 0.0-0.1 [facility] Comment on above: Performed By: #### C BC #### [facility] [address] [address] [address] Alejandra Crystal Basophils/100 WBC (Bld) 0.4 % Normal 0.2-2.0 [facility] Comment on above: Performed By: #### C BC #### [facility] [address] [address] [address] Alejandra Crystal EO # 0.0 103/ul Normal 0.0-0.7 [facility] Comment on above: Performed By: #### C BC #### [facility] [address] [address] [address] Alejandra Crystal Eosinophils/100 WBC (Bld) 0.6 % Critically low 0.9-7.0 [facility] Comment on above: Performed By: #### C BC #### [facility] [address] [place] [address] Dr. Alejandra Crystal Erythrocyte distribution width (RBC) [Ratio] 13.0 % Normal 11.0-15.0 [facility] Comment on above: Performed By: #### C BC #### [facility] [address] [place] [address] Dr. Alejandra Crystal Hematocrit (Bld) [Volume fraction] 42.0 % Normal 36.0-48.0 [facility] Comment on above: Performed By: #### C BC #### [facility] [address] [place] [address] Dr. Alejandra Crystal Hemoglobin (Bld) [Mass/Vol] 14.3 g/dL Normal 12.0-16.0 [facility] Comment on above: Performed By: #### C BC #### [facility] [address] [place] [address] Dr. Alejandra Crystal IG # 0.04 10e3/ul Critically high 0.00-0.03 [facility] Comment on above: Performed By: #### C BC #### [facility] [address] [place] [address] Dr. Alejandra Crystal IG % 0.6 % Critically high 0.0-0.5 [facility] Comment on above: Performed By: #### C BC #### [facility] [address] [place] [address] Dr. Alejandra Crystal LYMPH # 2.5 103/ul Normal 1.2-3.8 [facility] Comment on above: Performed By: #### C BC #### [facility] [address] [place] [address] Dr. Alejandra Crystal Lymphocytes/100 WBC (Bld) 34.9 % Normal 20.5-60.0 [facility] Comment on above: Performed By: #### C BC #### [facility] [address] [place] [address] Dr. Alejandra Crystal MANUAL DIFF REQ NO Normal [facility] Comment on above: Performed By: #### C BC #### [facility] [address] [place] [address] Dr. Alejandra Crystal MCH (RBC) [Entitic mass] 31.4 pg Normal 26.7-34.0 [facility] Comment on above: Performed By: #### C BC #### [facility] [facility] [address] [place] [address] Dr. Alejandra Crystal MCHC (RBC) [Mass/Vol] 34.0 g/dL Normal 29.9-35.2 [facility] Comment on above: Performed By: #### C BC #### [facility] [address] [place] [address] Dr. Alejandra Crystal MCV (RBC) [Entitic vol] 92.1 fL Normal 81.0-99.0 [facility] Comment on above: Performed By: #### C BC #### [facility] [address] [place] [address] Dr. Alejandra Crystal MONO # 0.6 103/ul Normal 0.3-0.8 [facility] Comment on above: Performed By: #### C BC #### [facility] [address] [place] [address] Dr. Alejandra Crystal Monocytes/100 WBC (Bld) 8.7 % Normal 1.7-12.0 [facility] Comment on above: Performed By: #### C BC #### [facility] [address] [place] [address] Dr. Alejandra Crystal NEUT # 4.0 103/ul Normal 1.4-6.5 [facility] Comment on above: Performed By: #### C BC #### [facility] [address] [place] [address] Dr. Alejandra Crystal Neutrophils/100 WBC (Bld) 54.8 % Normal 43.0-75.0 [facility] Comment on above: Performed By: #### C BC #### [facility] [address] [place] [address] Dr. Alejandra Crystal Platelet mean volume (Bld) [Entitic vol] 9.8 fL Normal 9.5-13.5 [facility] Comment on above: Performed By: #### C BC #### [facility] [address] [place] [address] Dr. Alejandra Crystal PLT 274 103/ul Normal 150-450 [facility] Comment on above: Performed By: #### C BC #### [facility] [address] [place] [address] Dr. Alejandra Crystal RBC 4.56 106/ul Normal 4.20-5.40 [facility] Comment on above: Performed By: #### C BC #### [facility] [address] [place] [address] Dr. Alejandra Crystal WBC 7.2 103/ul Normal 4.0-11.0 [facility] Comment on above: Performed By: #### C BC #### [facility] [address] [place] [address] Dr. Alejandra Crystal ER URINE PROFILEon 2 Bilirubin Ql (U) Negative Normal NEGATIVE [facility] Comment on above: Performed By: #### O BSCRN #### [facility] [address] [place] [address] Dr. Alejandra Crystal Clarity (U) CLEAR Normal CLEAR [facility] Comment on above: Performed By: #### O BSCRN #### [facility] [address] [place] [address] Dr. Alejandra Crystal Color (U) YELLOW Normal YELLOW [facility] Comment on above: Performed By: #### O BSCRN #### [facility] [address] [place] [address] Dr. Alejandra Crystal ERUAHD A micrscopic examina tion will be performed if indicated. Normal [facility] Comment on above: Performed By: #### O BSCRN #### [facility] [address] [place] [address] Dr. Alejandra Crystal Glucose Ql (U) Negative Normal NEGATIVE [facility] Comment on above: Performed By: #### O BSCRN #### [facility] [address] [place] [address] Dr. Alejandra Crystal Hemoglobin Ql (U) Negative Normal NEGATIVE [facility] Comment on above: Performed By: #### O BSCRN #### [facility] [address] [place] [address] Dr. Alejandra Crystal Ketones Ql (U) Negative Normal NEGATIVE [facility] Comment on above: Performed By: #### O BSCRN #### [facility] [address] [place] [address] Dr. Alejandra Crystal LEUKOCYTES Negative Normal NEGATIVE [facility] Comment on above: Performed By: #### O BSCRN #### [facility] [address] [place] [address] Dr. Alejandra Crystal Nitrite Ql (U) Negative Normal NEGATIVE [facility] Comment on above: Performed By: #### O BSCRN #### [facility] [address] [place] [address] Dr. Alejandra Crystal pH (U) 6.0 [pH] Normal 5-9 [facility] Comment on above: Performed By: #### O BSCRN #### [facility] [address] [place] [address] Dr. Alejandra Crystal SPEC GRAVITY >=1.030 Abnormal 1.005-<=1.[address] [place] [address] Comment on above: Performed By: #### O BSCRN #### [facility] [address] [place] [address] Dr. Alejandra Crystal UA PROTEIN Negative Normal NEGATIVE/ TRACE [facility] Comment on above: Performed By: #### O BSCRN #### [facility] [address] [place] [address] Dr. Alejandra Crystal UR MICRO IND NOT INDICATED Normal [facility] Comment on above: Performed By: #### O BSCRN #### [facility] [address] [place] [address] Dr. Alejandra Crystal Urobilinogen Qn (U) 0.2 {Ernst'U}/dL Normal 0.2 - 1. 0 [facility] Comment on above: Performed By: #### O BSCRN #### [facility] [address] [place] [address] Dr. Alejandra Crystal MAGNESIUMon 03-29-2022 Magnesium [Mass/Vol] 2.1 mg/dL Normal 1.8-2.4 [facility] Comment on above: Performed By: #### I NFLUAB #### [facility] [address] [address] [address] Alejandra Crystal PREG HCG QUALon 03-29-2022 , QUAL Negative Normal NEGATIVE [facility] Comment on above: Performed By: #### I NSULIN #### [facility] [address] [address] [address] Alejandra Crystal PROF 14(COMP METB)on 022 Albumin [Mass/Vol] 3.7 g/dL Normal 3.4-5.0 [facility] Comment on above: Performed By: #### I NFLUAB #### [facility] [address] [place] [address] Dr. Alejandra Crystal Albumin/Globulin [Mass ratio] 1.2 {ratio} Normal [facility] Comment on above: Performed By: #### I NFLUAB #### [facility] [address] [address] [address] Alejandra Crystal ALP [Catalytic activity/Vol] 120 U/L Critically high 46-116 [facility] Comment on above: Performed By: #### I NFLUAB #### [facility] [address] [address] [address] Alejandra Crystal ALT [Catalytic activity/Vol] 23 U/L Normal 14-59 [facility] Comment on above: Performed By: #### I NFLUAB #### [facility] [address] [address] [address] Alejandra Crystal Anion gap [Moles/Vol] 12.6 mmol/L Normal [facility] Comment on above: Performed By: #### I NFLUAB #### [facility] [address] [address] [address] Alejandra Crystal AST [Catalytic activity/Vol] 14 U/L Critically low 15-37 [facility] Comment on above: Performed By: #### I NFLUAB #### [facility] [address] [address] [address] Alejandra Crystal Bilirubin [Mass/Vol] 0.4 mg/dL Normal 0.2-1.0 [facility] Comment on above: Performed By: #### I NFLUAB #### [facility] [address] [place] [address] Dr. Alejandra Crystal Calcium [Mass/Vol] 9.0 mg/dL Normal 8.5-10.1 [facility] Comment on above: Performed By: #### I NFLUAB #### [facility] [address] [place] [address] Dr. Alejandra Crystal Chloride [Moles/Vol] 109 mmol/L Critically high 98-107 [facility] Comment on above: Performed By: #### I NFLUAB #### [facility] [address] [place] [address] Dr. Alejandra Crystal CO2 [Moles/Vol] 21.2 mmol/L Normal 21.0-32.0 [facility] Comment on above: Performed By: #### I NFLUAB #### [facility] [address] [place] [address] Dr. Alejandra Crystal Creatinine [Mass/Vol] 0.93 mg/dL Normal 0.55-1.02 [facility] Comment on above: Performed By: #### I NFLUAB #### [facility] [address] [place] [address] Dr. Alejandra Crystal EGFR-AF SWAZI Normal >=60 [facility] Comment on above: Performed By: #### I NFLUAB #### [facility] [address] [place] [address] Dr. Alejandra Crystal EGFR-NON AF SWAZI Normal >=60 [facility] Comment on above: Performed By: #### I NFLUAB #### [facility] [address] [place] [address] Dr. Alejandra Crystal Globulin (S) [Mass/Vol] 3.2 g/dL Normal [facility] Comment on above: Performed By: #### I NFLUAB #### [facility] [address] [place] [address] Dr. Alejandra Crystal Glucose [Mass/Vol] 100 mg/dL Normal 74-106 [facility] Comment on above: Performed By: #### I NFLUAB #### [facility] [address] [address] [address] Alejandra Crystal Potassium [Moles/Vol] 2.8 mmol/L Critically low 3.5-5.1 [facility] Comment on above: Performed By: #### I NFLUAB #### [facility] [address] [address] [address] Alejandra Crystal Protein [Mass/Vol] 6.9 g/dL Normal 6.4-8.2 [facility] Comment on above: Performed By: #### I NFLUAB #### [facility] [address] [address] [address] Alejandra Crystal Sodium [Moles/Vol] 140 mmol/L Normal 136-145 [facility] Comment on above: Performed By: #### I NFLUAB #### [facility] [address] [address] [address] Alejandra Crystal Urea nitrogen [Mass/Vol] 16.0 mg/dL Normal 7.0-18.0 [facility] Comment on above: Performed By: #### I NFLUAB #### [facility] [address] [address] [address] Alejandra Crystal Urea nitrogen/Creatinine [Mass ratio] 17.2 mg/mg Normal [facility] Comment on above: Performed By: #### I NFLUAB #### [facility] [address] [address] [address] Alejandra Crystal TROPONIN, HIGH SENSITIVITYon 03-29-2022 HSTROP 5.2 pg/mL Normal 4.0-51.3 [facility] Comment on above: Result Comment: CUT- OFF POINTS HAVE BEEN ESTABLISHED BASED ON THE FOURTH UNIVERSAL DEFINITIONS OF MYOCARDIAL INFARCTION. THE UPPER REFERENCE LIMIT (URL) OF TROPONIN, DEFINED THE 99TH PERCENTILE OF cTnI DISTRIBUTION IN A REFERENCE POPULATION, HAS BEEN CONFIRMED THE DECISION THRESHOLD FOR [place] DIAGNOSIS. Performed By: #### I NFLUAB #### [facility] [address] [address] [address] Alejandra Crystal Covid-19 PCR (CVDTBH)on 03-08 SARS-CoV-2 (COVID-19) RNA JAYNE+probe Ql (Unsp spec) Not detected Normal NOT DETECTED [facility] Comment on above: Result Comment: This test is not yet approved or cleared by the [place] FDA. When there are no FDA-approved or cleared tests available, and other criteria are met, FDA can make tests available under an emergency access mechanism called an Emergency Use Authorization (EUA). The EUA for this test is supported by the [place] of Health and Human Service's (HHS's) declaration [...] L IPID, URIC, CMP, T7, TSH #### [facility] [address] [address] [address] Alejandra Crystal [facility] W CON EXAMINATION: [...] by: CHAY MENDOZA Date: 2022-03-06 07:26 Normal [facility] CHEMISTRYOrdered By: SYSTEM SYSTEM on 02-21-2022 T4 [Mass/Vol] 5.1 ug/dL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 Comment on above: Order Comment: R/O F X Vital Signs Date Time Vital Sign Value Performing Clinician Facility 06-10-2023 15:08-0500 Diastolic blood pressure 69 mm[Hg] Ade Hennessy [facility] 06-10-2023 15:08-0500 Heart rate 76 /min Ade Hennessy [facility] 06-10-2023 15:08-0500 Mean blood pressure 85 mm[Hg] Ade [employer] [facility] 06-10-2023 15:08-0500 Respiratory rate 18 /min [facility] [facility] 06-10-2023 15:08-0500 Systolic blood pressure 117 mm[Hg] Ade [employer] [facility] 05-08-2023 14:22-0400 Body height 160 cm Stalin Reyes MD Work Phone: [facility] 05-08-2023 14:22-0400 Body weight 97.21 kg Stalin Reyes MD Work Phone: [facility] 05-08-2023 14:22-0400 Diastolic blood pressure 66 mm[Hg] Stalin Reyes MD Work Phone: [facility] 05-08-2023 14:22-0400 Heart rate 67 /min Stalin Reyes MD Work Phone: [facility] 05-08-2023 14:22-0400 Systolic blood pressure 111 mm[Hg] Stalin Reyes MD Work Phone: [facility] 05-07-2023 09:20-0400 Heart rate 61 /min Boy Valles [facility] 05-07-2023 09:20-0400 SaO2% (BldA) [Mass fraction] 99 % Boy Valles [facility] 05-07-2023 09:19-0400 Diastolic blood pressure 87 mm[Hg] Boy Ahi [facility] 05-07-2023 09:19-0400 Mean blood pressure 101 mm[Hg] Boy Hai [facility] 05-07-2023 09:19-0400 Systolic blood pressure 131 mm[Hg] Byo Hai [facility] 05-07-2023 09:19-0400 Respiratory rate 20 /min Boy Hai [facility] 05-07-2023 09:14-0400 Diastolic blood pressure 64 mm[Hg] Boy Hai [facility] 05-07-2023 09:14-0400 Heart rate 57 /min Boy Hai [facility] 05-07-2023 09:14-0400 SaO2% (BldA) [Mass fraction] 96 % Boy Hai [facility] 05-07-2023 09:14-0400 Systolic blood pressure 119 mm[Hg] Boy Hai [facility] 05-07-2023 07:56-0400 Heart rate 60 /min Boy Hai [facility] 05-07-2023 07:56-0400 SaO2% (BldA) [Mass fraction] 97 % Boy Hai [facility] 05-07-2023 07:56-0400 Body temperature 97.7 [degF] Boy Hai [facility] 05-07-2023 07:56-0400 Diastolic blood pressure 77 mm[Hg] Boy Hai [facility] 05-07-2023 07:56-0400 Mean blood pressure 90 mm[Hg] Boy Valles [facility] 05-07-2023 07:56-0400 Systolic blood pressure 115 mm[Hg] Boy Valles [facility] 05-07-2023 07:56-0400 Respiratory rate 16 /min Boy Valles [facility] 04-19-2023 08:17-0400 Diastolic blood pressure 60 mm[Hg] Ade Hennessy [facility] 04-19-2023 08:17-0400 Heart rate 96 /min Adeanca Hennessy [facility] 04-19-2023 08:17-0400 Mean blood pressure 70 mm[Hg] Adeanca Hennessy [facility] 04-19-2023 08:17-0400 Respiratory rate 16 /min Adeanca Hennessy [facility] 04-19-2023 08:17-0400 SaO2% (BldA) [Mass fraction] 100 % Adeanca Hennessy [facility] 04-19-2023 08:17-0400 Systolic blood pressure 90 mm[Hg] Adeanca Hennessy [facility] 03-15-2023 01:05-0400 Diastolic blood pressure 77 mm[Hg] [facility] 03-15-2023 01:05-0400 Heart rate 54 /min [facility] 03-15-2023 01:05-0400 Mean blood pressure 91 mm[Hg] [facility] 03-15-2023 01:05-0400 SaO2% (BldA) [Mass fraction] 95 % [facility] 03-15-2023 01:05-0400 Systolic blood pressure 118 mm[Hg] [facility] 03-15-2023 00:49-0400 Diastolic blood pressure 57 mm[Hg] [facility] 03-15-2023 00:49-0400 Heart rate 64 /min [facility] 03-15-2023 00:49-0400 Mean blood pressure 76 mm[Hg] [facility] 03-15-2023 00:49-0400 SaO2% (BldA) [Mass fraction] 99 % [facility] 03-15-2023 00:49-0400 Systolic blood pressure 113 mm[Hg] [facility] 03-15-2023 00:17-0400 Heart rate 66 /min [facility] 03-15-2023 00:17-0400 Respiratory rate 16 /min [facility] 03-15-2023 00:17-0400 SaO2% (BldA) [Mass fraction] 97 % [facility] 03-14-2023 21:34-0400 Body temperature 98.06 [degF] [facility] 03-14-2023 21:34-0400 Diastolic blood pressure 80 mm[Hg] [facility] 03-14-2023 21:34-0400 Heart rate 72 /min [facility] 03-14-2023 21:34-0400 Respiratory rate 18 /min [facility] 03-14-2023 21:34-0400 Systolic blood pressure 120 mm[Hg] [facility] 02-05-2023 09:41-0400 Body height 159.5 cm Nathanael Ryan MD Work Phone: [facility] 02-05-2023 09:41-0400 Body temperature 97.9 [degF] Nathanael Ryan MD Work Phone: [facility] 02-05-2023 09:41-0400 Body weight 102.19 kg Nathanael Ryan MD Work Phone: [facility] 02-05-2023 09:41-0400 Diastolic blood pressure 64 mm[Hg] Nathanael Ryan MD Work Phone: [facility] 02-05-2023 09:41-0400 Heart rate 75 /min Nathanael Ryan MD Work Phone: [facility] 02-05-2023 09:41-0400 Respiratory rate 18 /min Nathanael Ryan MD Work Phone: [facility] 02-05-2023 09:41-0400 SaO2% (BldA) [Mass fraction] 99 % Nathanael Ryan MD Work Phone: [facility] 02-05-2023 09:41-0400 Systolic blood pressure 110 mm[Hg] Nathanael Ryan MD Work Phone: [facility] 10-01-2022 10:36-0400 Diastolic blood pressure 83 mm[Hg] Adeanca Hennessy [facility] 10-01-2022 10:36-0400 Heart rate 71 /min Adeanca Hennessy [facility] 10-01-2022 10:36-0400 Mean blood pressure 100 mm[Hg] Adeanca Hennessy [facility] 10-01-2022 10:36-0400 Respiratory rate 18 /min Adeanca Hennessy [facility] 10-01-2022 10:36-0400 Systolic blood pressure 133 mm[Hg] Ade Hennessy [facility] 08-14-2022 10:13-0500 Heart rate 70 /min Boy Valles [facility] 08-14-2022 10:13-0500 SaO2% (BldA) [Mass fraction] 96 % Boy Valles [facility] 08-14-2022 10:13-0500 Respiratory rate 14 /min Boy Hai [facility] 08-14-2022 10:12-0500 Diastolic blood pressure 71 mm[Hg] Boy Hai [facility] 08-14-2022 10:12-0500 Mean blood pressure 86 mm[Hg] Boy Hai [facility] 08-14-2022 10:12-0500 Systolic blood pressure 118 mm[Hg] Boy Hai [facility] 08-14-2022 10:08-0500 Diastolic blood pressure 76 mm[Hg] Boy Hai [facility] 08-14-2022 10:08-0500 Heart rate 69 /min Boy Hai [facility] 08-14-2022 10:08-0500 Respiratory rate 14 /min Boy Hai [facility] 08-14-2022 10:08-0500 SaO2% (BldA) [Mass fraction] 96 % Boy Hai [facility] 08-14-2022 10:08-0500 Systolic blood pressure 126 mm[Hg] Boy Hai [facility] 08-14-2022 09:29-0500 Heart rate 79 /min Boy Hai [facility] 08-14-2022 09:29-0500 SaO2% (BldA) [Mass fraction] 97 % Boy Hai [facility] 08-14-2022 09:29-0500 Diastolic blood pressure 73 mm[Hg] Boy Hai [facility] 08-14-2022 09:29-0500 Mean blood pressure 88 mm[Hg] Boy Valles [facility] 08-14-2022 09:29-0500 Systolic blood pressure 118 mm[Hg] Boy Valles [facility] 08-14-2022 09:28-0500 Body temperature 97.7 [degF] Boy Valles [facility] 08-14-2022 09:28-0500 Respiratory rate 12 /min Boy Valles [facility] 05-18-2022 11:17-0500 Diastolic blood pressure 72 mm[Hg] Ade Hennessy [facility] 05-18-2022 11:17-0500 Heart rate 80 /min Adeanca Hennessy [facility] 05-18-2022 11:17-0500 Mean blood pressure 88 mm[Hg] Ade Hennessy [facility] 05-18-2022 11:17-0500 Respiratory rate 16 /min Adeanca Hennessy [facility] 05-18-2022 11:17-0500 Systolic blood pressure 120 mm[Hg] Adeanca Hennessy [facility] 04-11-2022 17:00-0400 Diastolic blood pressure 83 mm[Hg] Jim Ramirez [facility] 04-11-2022 17:00-0400 Heart rate 76 /min Jim Ramirez [facility] 04-11-2022 17:00-0400 Mean blood pressure 94 mm[Hg] Jim Ramirez [facility] 04-11-2022 17:00-0400 Respiratory rate 20 /min Jim Ramirez [facility] 04-11-2022 17:00-0400 SaO2% (BldA) [Mass fraction] 98 % Jim James [facility] 04-11-2022 17:00-0400 Systolic blood pressure 117 mm[Hg] Jim James [facility] 04-11-2022 16:30-0400 Diastolic blood pressure 78 mm[Hg] Jim James [facility] 04-11-2022 16:30-0400 Heart rate 77 /min Jim James [facility] 04-11-2022 16:30-0400 Mean blood pressure 92 mm[Hg] Jim James [facility] 04-11-2022 16:30-0400 Respiratory rate 14 /min Jim James [facility] 04-11-2022 16:30-0400 SaO2% (BldA) [Mass fraction] 96 % Jim James [facility] 04-11-2022 16:30-0400 Systolic blood pressure 121 mm[Hg] Jim James [facility] 04-11-2022 16:00-0400 Diastolic blood pressure 92 mm[Hg] Jim James [facility] 04-11-2022 16:00-0400 Heart rate 75 /min Jim James [facility] 04-11-2022 16:00-0400 Mean blood pressure 110 mm[Hg] Jim James [facility] 04-11-2022 16:00-0400 Respiratory rate 22 /min Jim James [facility] 04-11-2022 16:00-0400 Systolic blood pressure 146 mm[Hg] Jim James [facility] 04-11-2022 15:01-0400 gluc 123 mg/dL Jim Ramirez [facility] 04-11-2022 15:01-0400 gluc Jim Ramirez [facility] 04-11-2022 14:46-0400 Body temperature 98.6 [degF] Jim Ramirez [facility] 04-11-2022 14:46-0400 Heart rate 86 /min Jim Ramirez [facility] 04-11-2022 14:46-0400 Respiratory rate 18 /min Jim Ramirez [facility] 04-09-2022 14:22-0400 Diastolic blood pressure 64 mm[Hg] Ade Hennessy [facility] 04-09-2022 14:22-0400 Heart rate 79 /min Ade [employer] [facility] 04-09-2022 14:22-0400 Mean blood pressure 86 mm[Hg] Ade [employer] [facility] 04-09-2022 14:22-0400 Respiratory rate 14 /min Ade [employer] [facility] 04-09-2022 14:22-0400 Systolic blood pressure 129 mm[Hg] Ade [employer] [facility] 02-09-2022 10:10-0400 Diastolic blood pressure 66 mm[Hg] Ade [employer] [facility] 02-09-2022 10:10-0400 Heart rate 72 /min Ade [employer] [facility] 02-09-2022 10:10-0400 Mean blood pressure 78 mm[Hg] Ade [employer] [facility] 02-09-2022 10:10-0400 Respiratory rate 16 /min Ade Hennessy [facility] 02-09-2022 10:10-0400 Systolic blood pressure 103 mm[Hg] Ade Hennessy [facility] 01-16-2022 15:04-0400 Diastolic blood pressure 77 mm[Hg] Boy Hai [facility] 01-16-2022 15:04-0400 Heart rate 73 /min Boy Hai [facility] 01-16-2022 15:04-0400 Mean blood pressure 89 mm[Hg] Boy Hai [facility] 01-16-2022 15:04-0400 SaO2% (BldA) [Mass fraction] 95 % Boy Hai [facility] 01-16-2022 15:04-0400 Systolic blood pressure 115 mm[Hg] Boy Hai [facility] 01-16-2022 15:04-0400 Respiratory rate 12 /min Boy Hai [facility] 01-16-2022 14:58-0400 Diastolic blood pressure 49 mm[Hg] Boy Hai [facility] 01-16-2022 14:58-0400 Heart rate 71 /min Boy Hai [facility] 01-16-2022 14:58-0400 Respiratory rate 12 /min Boy Hai [facility] 01-16-2022 14:58-0400 SaO2% (BldA) [Mass fraction] 97 % Boy Hai [facility] 01-16-2022 14:58-0400 Systolic blood pressure 117 mm[Hg] Boy Hai [facility] 01-16-2022 14:41-0400 Body temperature 98.6 [degF] Boy Valles [facility] 01-16-2022 14:41-0400 Diastolic blood pressure 57 mm[Hg] Boy Hai [facility] 01-16-2022 14:41-0400 Heart rate 73 /min Boy Valles [facility] 01-16-2022 14:41-0400 Mean blood pressure 74 mm[Hg] Boy Hai [facility] 01-16-2022 14:41-0400 Respiratory rate 12 /min Boy Valles [facility] 01-16-2022 14:41-0400 SaO2% (BldA) [Mass fraction] 98 % Boy Valles [facility] 01-16-2022 14:41-0400 Systolic blood pressure 109 mm[Hg] Boy Valles [facility] 11-17-2021 08:50-0400 Diastolic blood pressure 76 mm[Hg] Ade Hennessy [facility] 11-17-2021 08:50-0400 Heart rate 62 /min Ade Hennessy [facility] 11-17-2021 08:50-0400 Mean blood pressure 96 mm[Hg] Ade Hennessy [facility] 11-17-2021 08:50-0400 Respiratory rate 18 /min Ade Hennessy [facility] 11-17-2021 08:50-0400 Systolic blood pressure 135 mm[Hg] Aed Hennessy [facility] 10-30-2021 07:57-0400 Diastolic blood pressure 77 mm[Hg] Boy Hai [facility] 10-30-2021 07:57-0400 Heart rate 59 /min Boy Hai [facility] 10-30-2021 07:57-0400 Mean blood pressure 89 mm[Hg] Boy Hai [facility] 10-30-2021 07:57-0400 SaO2% (BldA) [Mass fraction] 98 % Boy Hai [facility] 10-30-2021 07:57-0400 Systolic blood pressure 113 mm[Hg] Boy Hai [facility] 10-30-2021 07:49-0400 Diastolic blood pressure 72 mm[Hg] Boy Hai [facility] 10-30-2021 07:49-0400 Heart rate 61 /min Boy Hai [facility] 10-30-2021 07:49-0400 Respiratory rate 16 /min Boy Hai [facility] 10-30-2021 07:49-0400 SaO2% (BldA) [Mass fraction] 97 % Boy Hai [facility] 10-30-2021 07:49-0400 Systolic blood pressure 103 mm[Hg] Boy Hai [facility] 10-30-2021 07:18-0400 Body temperature 98.24 [degF] Boy Hai [facility] 10-30-2021 07:18-0400 Diastolic blood pressure 64 mm[Hg] Boy Hai [facility] 10-30-2021 07:18-0400 Heart rate 72 /min Boy Valles [facility] 10-30-2021 07:18-0400 Mean blood pressure 74 mm[Hg] Boy Valles [facility] 10-30-2021 07:18-0400 Respiratory rate 14 /min Boy Valles [facility] 10-30-2021 07:18-0400 SaO2% (BldA) [Mass fraction] 97 % Boy Valles [facility] 10-30-2021 07:18-0400 Systolic blood pressure 95 mm[Hg] Boy Valles [facility] Encounters Encounter Date Encounter Type Care Provider Facility Start: 07-29-2023 ambulatory Ade Hennessy Facilit y:[facility] Start: 06-25-2023 End: 07-03-2023 Pre-admission assessment Ade Hennessy [facility] Start: 06-17-2023 ambulatory Devon Sanders acility:[facility] Start: 06-10-2023 End: 06-11-2023 ambulatory Ade Hennessy Facility:[facility] Start: 06-10-2023 End: 06-10-2023 Pain Management Ade Hennessy [facility] Start: 05-08-2023 End: 05-08-2023 ambulatory STALIN REYES Facility:[facility] Start: 05-08-2023 End: 05-08-2023 Patient encounter procedure Stalin Reyes MD Work Phone: Neurology Comment on above: Radiculopathy, lumba r region (Primary Dx); Intractable chronic migraine without aura and without status migrainosus; Essential tremor; Depression, unspecified depression type; Anxiety Start: 05-07-2023 End: 05-08-2023 ambulatory Boy Valles Facility:[facility] Start: 05-07-2023 End: 05-07-2023 Pain Management Boy Valles [facility] Start: 04-19-2023 End: 04-20-2023 ambulatory MARCUS-Walter Hennessy Facility:[facility] Start: 04-19-2023 End: 04-19-2023 Pain Management Ade Hennessy [facility] Start: 03-14-2023 End: 03-15-2023 Emergency department patient visit Chandni Hart Facility:[facility] Start: 03-14-2023 End: 03-15-2023 Emergency department patient visit [facility] Sidra Adammitchel [facility] Start: 02-05-2023 End: 02-05-2023 ambulatory NATHANAEL RYAN Facility:[facility] Start: 02-05-2023 End: 02-05-2023 Patient encounter procedure Nathanael Ryan MD Work Phone: [facility] Comment on above: Hemangioma of bone ( Primary Dx); Brain tumor (HCC) Start: 01-24-2023 End: 01-24-2023 ambulatory Ade Valderrama RT(R) Radiology Comment on above: Radiology MRI Start: 01-24-2023 Patient encounter procedure Ade Valderrama RT(R) [facility] Start: 12-18-2022 Telephone encounter Edilberto delacruz RN Work Phone: [facility] Comment on above: Insurance Authorizat ion (Emgality 120MG/ML auto-injectors (migraine)/) Start: 12-17-2022 End: 12-17-2022 ambulatory STALIN REYES Facility:[facility] Start: 11-20-2022 End: 11-21-2022 ambulatory Yamile Muller Facility: [place] Start: 10-13-2022 End: 10-13-2022 ambulatory EDUARDO [facility] Start: 10-01-2022 End: 10-02-2022 ambulatory Ade Hennessy Facility:[facility] Start: 10-01-2022 End: 10-01-2022 Pain Management Ade Hennessy [facility] Start: 09-20-2022 End: 09-21-2022 ambulatory Pepe Alcazar Facility:[facility] Start: 09-20-2022 End: 09-20-2022 Patient encounter procedure Pepe Alcazar [facility] Start: 08-31-2022 End: 09-01-2022 ambulatory CURRY Hennessy Facility:[facility] Start: 08-28-2022 ambulatory EDUARDO [facility] Start: 08-25-2022 End: 08-26-[address] PEPE ALCAZAR . Facility:[facility] Start: 08-16-2022 End: 08-16-[address] PEPE ALCAZAR . Facility:[facility] Start: 08-14-2022 End: 08-14-2022 Pain Management Boy Valles [facility] Start: 08-13-2022 End: 08-13-[address] PEPE ALCAZAR . Facility:[facility] Start: 07-17-2022 End: 08-01-2022 Pre-admission assessment Boy Valles [facility] Start: 07-03-2022 End: 07-03-2022 Pain Management Boy Valles [facility] Start: 06-06-2022 End: 06-06-[address] PEPE ALCAZAR . Facility:[facility] Start: 06-04-2022 Encounter for genera l adult medical examination without abnormal findings DR PEPE ALCAZAR . [facility] Start: 05-29-2022 End: 05-30-[address] PEPE ALCAZAR . Facility:[facility] Start: 05-29-2022 End: 05-30-2022 Encounter for general adult medical examination without abnormal findings DR PEPE ALCAZAR . Facility:[facility] Start: 05-18-2022 End: 05-18-2022 Pain Management Ade Hennessy [facility] Start: 05-17-2022 End: 05-18-[address] PEPE ALCAZAR . Facility:[facility] Start: 05-15-2022 End: 05-16-[address] PEPE ALCAZAR . Facility:[facility] Start: 04-23-2022 End: 04-23-2022 Patient encounter procedure MIRANDA CAT [facility] Start: 04-11-2022 End: 04-11-2022 Emergency department patient visit Jim Ramirez [facility] Start: 04-09-2022 End: 04-09-2022 Pain Management Ade Hennessy [facility] Start: 04-09-2022 End: 04-10-[address] PEPE ALCAZAR . Facility:[facility] Start: 03-29-2022 End: 03-29-2022 ambulatory MARANDA BARRERA . Facility:[facility] Start: 03-19-2022 End: 03-19-[address] PEPE ALCAZAR . Facility:[facility] Start: 03-05-2022 End: 03-06-[address] PEPE ALCAZAR . Facility:[facility] Start: 02-21-2022 End: 02-21-2022 Patient encounter procedure ADE AMARO [facility] Start: 02-09-2022 End: 02-09-2022 Pain Management Ade Hennessy [facility] Start: 01-29-2022 End: 01-29-[address] PEPE ALCAZAR . Facility:[facility] Start: 01-16-2022 End: 01-16-2022 Pain Management Boy Valles [facility] Start: 01-05-[address] PEPE ALCAZAR . Facili ty:[facility] Start: 01-01-2022 End: 01-02-[address] PEPE ALCAZAR . Facility:[facility] Start: 12-01-2021 End: 12-01-[address] PEPE ALCAZAR . Facility:[facility] Start: 11-30-2021 End: 12-01-[address] PEPE ALCAZAR . Facility:[facility] Start: 11-28-2021 End: 11-28-2021 ambulatory MIRANDA EMORY Facility:[facility] Start: 11-22-2021 End: 11-22-[address] PEPE ALCAZAR . Facility:[facility] Start: 11-17-2021 End: 11-17-2021 Pain Management Ade StackSocial [facility] Start: 10-30-2021 End: 10-30-2021 Pain Management Boy Valles [facility] Start: 10-07-2017 End: 10-08-2017 Ambulatory REFERRED SELF Facility:[facility] Procedures Date Procedure Procedure Detail Performing Clinician Start: 05-07-2023 Injection of nerve r oot of lumbar spine using fluoroscopic guidance Ade [employer] Comment on above: L4-L5-50% relief for 1 week Start: 10-13-2022 Follow-up visit Follow-up EDUARDO HYDE Start: 08-14-2022 Injection of nerve r oot of lumbar spine using fluoroscopic guidance Pepe Alcazar Comment on above: 50% relief Start: 01-16-2022 Injection of sacroil iac joint Ade Hennessy Comment on above: left SIJI 45% relief . left SIJI 45% relief . Start: 10-30-2021 Injection of nerve r oot of lumbar spine using fluoroscopic guidance Ade Hennessy Comment on above: 701% relief at least [...] above: partial partial Repair of ligament Boy Billy val Plan of Treatment Date Care Activity Detail Author Start: 09-12-2032 Urine microalbumin profile DTaP,Tdap,Td Vaccine (2 - Td or Tdap) [facility] Start: 03-08-2023 Covid-19 Vaccine ( season) Covid-19 Vaccine ( season) [facility] Start: 03-08-2023 Influenza vaccination C [facility] Start: 2019 Mammography [facility] Start: 2009 HPV TESTING HPV TESTING [facility] Start: 2000 PAP TESTING PAP TESTING [facility] Start: 1998 SHINGRIX VACCINE (1 of 2) SHINGRIX V ACCINE (1 of 2) [facility] Start: 1998 Urine microalbumin profile DTAP,TDAP,TD (1 - Tdap) [facility] Start: 1997 HEPATITIS C SCREENING HEPATITIS C ANITA RODRIGUEZ [facility] Start: 1997 HIV SCREENING HIV SCREENING [facility] Start: 1985 PNEUMOCOCCAL (1 - PCV) PNEUMOCOCCAL (1 - PCV) [facility] Start: 1985 Pneumococcal vaccination Pneum ococcal Vaccine (1 - PCV) [facility] Start: 1979 HEPATITIS B (1 of 3 - 3-dose series) HEPATITIS B (1 of 3 - 3-dose series) [facility] Start: 1979 Hepatitis B Vaccine (1 of 3 - 3-dose series) Hepatitis B Vaccine (1 of 3 - 3-dose series) [facility] Immunizations Immunization Date Immunization Notes Care Provider Fa cility 09-12-2022 influenza virus vacc ine, unspecified formulation [facility] 09-12-2022 SARS-CoV-2 (COVID-19 ) [id number] [facility] 09-12-2022 tetanus toxoid, redu leticia diphtheria toxoid, and acellular pertussis vaccine, adsorbed [facility] 01-24-2022 SARS-CoV-2 (COVID-19 ) mRNA-[id number] [facility] 11-16-2020 SARS-CoV-2 (COVID-19 ) mRNA-[address] [facility] 10-19-2020 SARS-CoV-2 (COVID-19 ) mRNA-[address] [facility] 05-04-2020 influenza virus vacc ine, unspecified formulation [facility] 08-24-2019 influenza virus vacc ine, unspecified formulation [facility] 03-26-2017 influenza virus vacc ine, unspecified formulation [facility] Payers Date Payer Category Payer Self-pay 2022 Medicaid [facility] A[facility] [id number] 2022-Present [phone] [address] [place] [address] Medicaid [id number] 1979 Unknown [id number] 08.23.830.1.477366.3.579.2.593 1979 Unknown [id number] 2.16.840.1.812945.3.579.2.593 1979 Unknown [id number] 2.16.840.1.905447.3.579.2.593 1979 Unknown [id number] 2.16.840.1.838164.3.579.2.593 1979 Unknown [id number] 2.16.840.1.444506.3.579.2.593 1979 Unknown [id number] 2.16.840.1.949875.3.579.2.593 1979 Unknown [id number] 2.16.840.1.615774.3.579.2.593 1979 Unknown [id number] 2.16.840.1.519180.3.579.2.593 1979 Unknown [id number] 2.16.840.1.087582.3.579.2.593 1979 Unknown [id number] 2.16.840.1.938492.3.579.2.593 1979 Unknown [id number] 2.16.840.1.530703.3.579.2.593 1979 Unknown [id number] 2.16.840.1.649066.3.579.2.593 1979 Unknown [id number] 2.16.840.1.501439.3.579.2.593 1979 Unknown [id number] 2.16.840.1.960656.3.579.2.593 1979 Unknown [id number] 2.16.840.1.684998.3.579.2.593 1979 Unknown [id number] 2.16.840.1.828165.3.579.2.593 1979 Unknown [id number] 2.16.840.1.409048.3.579.2.593 1979 Unknown [id number] 2.16.840.1.393348.3.579.2.593 1979 Unknown [id number] 2.16.840.1.207850.3.579.2.593 1979 Unknown [id number] 2.16.840.1.954319.3.579.2.727 1979 Unknown [id number] 2.16.840.1.243932.3.579.2.727 1979 Unknown [id number] 2.16.840.1.713651.3.579.2.727 1979 Unknown [id number] 2.16.840.1.172167.3.579.2.727 1979 Unknown [id number] 2.16.840.1.247162.3.579.2.727 1979 Unknown [id number] 2.16.840.1.493798.3.579.2.727 1979 Unknown [id number] 2.16.840.1.629106.3.579.2.727 1979 Unknown [id number] 2.16.840.1.823291.3.579.2.727 1979 Unknown [id number] 2.16.840.1.579310.3.579.2.727 1959 Medicaid [id number] 1959 Unknown [id number] 1959 Unknown [id number] 1959 Unknown [id number] Unknown [id number] 2.16.840.1.181823.3.579.2.531 Social History Date Type Detail Facility Start: 07-04-2020 End: 11-20-2022 Tobacco smoking status Never smoked tobacco (finding) [facility] Comment on above: Deniessd Start: 12-17-2022 End: 02-05-2023 Sex Assigned At Female [facility] Start: 05-12-2015 Tobacco use and exposure Smokeless tobacco non-user [facility] Work Phone: Start: 12-17-2022 End: 05-08-2023 Alcohol intake Current drinker of alcohol (finding) [facility] Start: 05-12-2015 [facility] Start: 1980 Sex Assigned At Not on file C [facility] Start: 12-17-2022 End: 02-05-2023 History of Social function [facility] Adult Depression Screening Assessment 5 [facility] Functional Status Date Assessment Result Facility 06-10-2023 Functional Status N/A [facility] 05-07-2023 Functional Status N/A [facility] 04-19-2023 Functional Status N/A [facility] 03-14-2023 Functional Status N/A [facility] 10-01-2022 Functional Status N/A [facility] 08-14-2022 Functional Status N/A [facility] 05-18-2022 Functional Status N/A [facility] 04-11-2022 Functional Status N/A [facility] 04-09-2022 Functional Status N/A [facility] 02-09-2022 Functional Status N/A [facility] 01-16-2022 Functional Status N/A [facility] Clinical Notes 11-17-2021 to 06-10-2023 Note [...] reevaluation to discuss options PAOLA score: 36% [facility]11-01-2023 NoteHNO ID: [id number] Author: Stalin Reyes MD Service: ? Author Type: Physician Type: Progress Notes Filed: 05/08/2023 3:40 PM Note Text: [facility] General Neurology Follow up/ Established patient visit Individuals who were included in, or assisted with the encounter were: Mitesh Burgess Stalin Reyes MD Chief Complaint/Issues: Mitesh Burgess is a 43 year old R handed female w PMH chronic migraine stopped Emgality half year ago, anxiety, depression, skull mass, seen in the [facility] for [facility] Neurology for: Dizziness, headache and tremor Most Recent Neurological Assessment and Plan: Last Filed Values Date of Most Recent Assessment and Plan 12/17/22 Specialty General Neurology Assessment Mitesh Burgess is a 42 year old R handed female w PMH chronic migraine stopped Emgality half year ago, anxiety, depression, skull mass, seen in the [facility] for: 1. Dizziness, [...] pain management. Her pain management is absent [facility]. 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 Her psychiatrist recently adjusted her medications. Seroquel was stopped and Ingrezza 60 mg daily was started. Regarding the left parietal bone lesion, she had a repeat MRI and [facility]. She was told to return [...] intact. Fundi with normal (more content not included)...[id number] Instructions* Patient Instructions* Stalin Reyes MD - [...] up in 6 months [facility] History of Present illness Narrative* Stalin Reyes MD - 05/08/2023 2:21 PM EDT Images from the original note were not included. [facility] Follow up/ Established patient visit Individuals who were included in, or assisted with the encounter were: Mitesh Reyes MD Chief Complaint/Issues: Mitesh Burgess is a 43 year old R handed female w PMH chronic migraine stopped Emgality half year ago, anxiety, depression, skull mass, seen in the [facility] for: Dizziness, headache and tremor Most Recent Neurological Assessment and Plan: Last Filed Values Date of Most Recent Assessment and Plan 12/17/22 Specialty General Neurology Assessment Mitesh Burgess is a 42 year old R handed female w PMH chronic migraine stopped Emgality half year ago, anxiety, depression, skull mass, seen in the [facility] for: 1. Dizziness, [...] pain management. Her pain management is absent [facility]. She has been on Lyrica 300 [...] 43 year old R handed female w [facility] chronic migraine stopped Emgality half year ago, anxiety, depression, skull mass, seen in the [facility] for General Neurology for: 1. 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 Stalin Reyes MDThere is no data to display for this encounter documented [facility]10-[facility]23 Note [id number] 04[facility] Evaluation + Plan noteExtracted from: [...] necessary. OARRS reviewed. Refill of Lyrica sent. PAOAL score: 42% [facility]09-08-2023 Evaluation + Plan noteExtracted from: Title:ED Note [...] EDT, 500 mL/hr, Infuse over 1, hour(s) [facility]09-08-2023 Hospital Discharge instructions Patient Education 03/15/2023 01:14:45 [...] Follow these instructions at home: Medicines Take ggjc-nwb-seldsex and prescription medicines only as told by your health care provider. Ask your health care provider if the medicine prescribed to you: ?Requires you to avoid driving or using heavy machinery. ?Can cause constipation. You may need to take these actions to prevent or treat constipation: ?Drink enough fluid to keep your urine pale yellow. ?Take jdvu-cyq-luivwkd or prescription medicines. ?Eat foods that are [...] provider. Document Revised: 10/16/2019 Document Reviewed: 08/06/2019 [employer] Patient Education 2022 [employer]. Follow Up Care 03/14/2023 21:27:36 With:Pepe Alcazar Address: [address] [place], [place] [id number] Business (1) When:03/18/2023 Comments:Return to the emergency room if your headache recurs or any new symptoms. [facility]08-01-2023 NoteHNO ID: [id number] Author: Nathanael Ryan MD Service: ? Author Type: Physician Type: Progress Notes Filed: 02/05/2023 11:43 AM Note Text: [id number] [facility] [id number] Diagnosis: skull hemangioma Subjective History of Present [...] DATE OF EXAM: Jan 24 2023 2:18PM [facility] 0295 - MRI BRAIN WO/W IVCON / PROCEDURE REASON: Brain tumor (HCC) * * * * Physician Interpretation * * * * EXAMINATION: MRI BRAIN WO/W IVCON HISTORY: Brain tumor (HCC) Per the electronic medical record: PMH chronic migraine stopped Emgality half year ago, anxiety, depression, skull mass, [facility] for: Dizziness, headache and tremor 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 TECHNIQUE: Routine brain MRI protocol (more content not included)...[facility]08-01-2023 History of Present illness Narrative* Nathanael Ryan MD - 02/05/2023 10:09 AM EDT Images from the original note were not included. [facility] New Patient Consultation Referred by Stalin Reyes [address] [facility] [id number] Diagnosis: skull hemangioma Subjective History of Present [...] PAST SURGICAL HISTORY Procedure Laterality Date AMP F/07/09 JT/PHALANX W/NEURECT W/DIR CLSR CARDIAC CATHETERIZATION HX [...] DATE OF EXAM: Jan 24 2023 2:18PM [facility] 0295 - MRI BRAIN WO/W IVCON / PROCEDURE REASON: Brain tumor (HCC) * * * * Physician Interpretation * * * * EXAMINATION: MRI BRAIN WO/W IVCON HISTORY: Brain tumor (HCC) Per the electronic medical record: PMH chronic migraine stopped Emgality half year ago, anxiety, depression, skull mass, seen in the [facility] for: Dizziness, headache [...] and is most compatible with intraosseous hemangioma. [facility] Transcribe Date/Time: Jan 24 2023 2:35P Dictated by : DONAL BURNS MD This examination was interpreted and the report reviewed and electronically signed by: DONAL BURNS MD on Jan 24 2023 2:42PM EST Data Review: Arnold Sanchez MD 10:26 AM 02/05/2023 [facility] Personal review of medical records: I reviewed the [facility] chart. Personal review of image, tracing [...] which included preparing to see the patient, qezs-vn-hezw patient care, completing clinical documentation, obtaining and/or reviewing separately obtained history, counseling and educating the patient/family/caregiver, independently interpretin g results (not separately reported), and care coordination (not separately reported). Nathanael Ryan MD February 05, 2023 10:46 AM documented in this encounterFort [facility]08-01-2023 Nurse Note* Ade Patten Ma - 02/05/2023 9:40 AM EDT Additional intake questions: Has the patient had fever, nausea, vomiting, diarrhea, constipation, fatigue for > 1 week? No Does the patient have a decreased appetite? No Does patient want to see a Warp Preparer? No (yes to any of above refer patient to schedulers for dietitian appointment) ) Does patient have any new or increased numbness or tingling of extremities? No Is patient interested in fertility information? No Does patient need any prescription refills? No Does patient have an advanced directive in place? No, Patient referred to [facility] documented in this encounterFort [facility]07-20-2023 NoteHNO ID: [id number] Author: Ade Valderrama RT(R) Service: ? Author [...] Burgess DATE: January 24, 2023 TIME: 2:05 [facility]07-20-2023 History of Present illness Narrative* Ade Valderrama RT([place]) - 01/24/2023 2:04 PM EDT Radiology Service [...] 2023 TIME: 2:05 PM documented in this encounterFort Hamilton Hospital06-15-2023 Miscellaneous Notes* Telephone Encounter - Edilberto Tirado RN - 12/20/2022 3:58 PM EDT Ambulatory Pharmacy Prior Authorization Note Provider Intervention Required?: No- Pharmacy completed on your behalf. Rx Plan: Medicaid [facility] Drug: Emgality 120MG/ML auto-injectors (migraine) Cover My Meds Garcia: [id number] Determination: Approved Prior Authorization/Case #: n/a Prior [...] refills. Prescriptions will now be processed through [facility] for determination of next steps. For questions relating to this submission, please contact [facility] at [phone] * Telephone Encounter - Edilberto Tirado RN - 12/18/2022 4:55 PM EDT [facility] received prescription(s) for Emgality 120MG/ML auto-injectors (migraine). Benefits investigation was conducted, indicating that a prior authorization is required. PA was initiated and pending review through [employer]. All pertinent clinical information was submitted to insurance. [facility] Garcia: [id number] Ordering Provider: MD Celestino Etienne Alisha, RN [facility] P: , F: documented in this encounterFort Hamilton Hospital06-12-2023 NoteHNO ID: [id number] Author: Stalin Reyes MD Service: ? Author Type: Physician Type: Progress Notes Filed: 12/17/2022 2:28 PM Note Text: [facility] Follow up/ Established patient visit Individuals who were included in, or assisted with the encounter were: Mitesh Reyes MD Chief Complaint/Issues: Mitesh Burgess is a 42 year old R handed female w PMH chronic migraine stopped Emgality half year ago, anxiety, depression, skull mass, seen in the [facility] for: Dizziness, headache [...] anxiety, depression, skull mass, seen in the [facility] for: 1. Dizziness, [...] and depression PLAN --W (more content not included)...[facility] [id number] Note Attestation signed by Eduardo Clemente MD [...] available for review today. MRI report from [facility] was reviewed stating the possibility of [...] WIN MD Orthopedic Surgery, PGY-1 Ortho Pager [phone] 10/13/22 1:38 [facility]Un[facility] Evaluation + Plan noteExtracted from: Title:Pain Managment Follow up Author:Ade Puente Date:10/01/22 Impression and Plan Patient is a 42-year-old female with a past medical history significant for lumbar neuritis, sacroiliitis, myalgia, left hip and knee pain. She also has some shoulder issues. She is seeing somebody at the [facility] for this. She has an [...] 01:00:00 PM Scheduled Provider:Ade Hennessy PA-C Location:.[facility] Appointment Type:Pain Management - Follow Up (FT) [facility]02-21-2023 Note Attestation signed by Eduardo Clemente MD [...] available for review today. MRI report from [facility] was reviewed stating the possibility of [...] Jim Carranza MD Orthopedic Surgery, PGY-5 Pager: [phone] 08/28/22 11:42 AM By using the attestations [...] and I was otherwise immediately [facility] Evaluation + Plan noteExtracted from: Title:Pain Managment [...] for reevaluation. Call clinic sooner if necessary. [facility]10-05-2022 Hospital Discharge instructions Patient Education 04/11/2022 17:19:39 [...] fried or sweet foods. General instructions Take uypt-ovi-mkdcevj and prescription medicines only as told by [...] 06/14/2003 Document Revised: 07/20/2019 Document Reviewed: 07/03/2018 [employer] Patient Education 2020 [employer] 04/11/2022 17:19:39 Neuropathic Pain Neuropathic Pain [...] this treated? Treatment for neuropathic pain may address change clerk time. You may need to try different treatment options or a combination of treatments. Some options include: Treating the underlying cause of the neuropathy, such as diabetes, kidney disease, or vitamin deficiencies. Stopping medicines that can cause neuropathy, such as chemotherapy. Medicine to relieve pain. Medicines may include: ?Prescription or refm-qts-hyshwfa pain medicine. ?Anti-seizure medicine. ?Antidepressant medicines. ?Pain-relieving [...] Follow these instructions at home: Medicines Take ukgc-gow-spborsw and prescription medicines only as told by [...] as fried or sweet foods. ?Take an wwmv-rzr-gtaqzsn or prescription medicine for constipation. Lifestyle Have [...] 03/21/2005 Document Revised: 10/15/2019 Document Reviewed: 07/11/2018 [employer] Patient Education 2020 [employer]. Follow Up Care 04/11/2022 14:37:42 With:Chay Carter Address: [address] [place] [address]- Business (1) When:04/12/2022 16:43:30 With:Jr Martines Address: [address] [place] [place] [address] Business (1) When:04/12/2022 16:43:28 With:Pepe Alcazar Address: [facility] [place] [address]- Business (1) When:Within 3 Day(s) [facility]10-05-2022 Evaluation + Plan noteExtracted from: Title:ED Note [...] Date:05/18/2022 11:15:00 AM Scheduled Provider:Ade Hennessy PA-C Location:[facility] Appointment Type:Pain Management - Follow Up (FT) [facility]10-03-2022 Evaluation + Plan noteExtracted from: Title:Pain management [...] had some falls and went to the [facility] and has had a lot of [...] Date:05/18/2022 11:15:00 AM Scheduled Provider:Ade Hennessy PA-C Location:[facility] Appointment Type:Pain Management - Follow Up (FT) [facility]09-22-2022 NotePROCEDURE: XR SHOULDER LT 2V or > COMPARISON: None. HISTORY: Acute pain due to injury FINDINGS: BONES:No fracture, acute abnormality, or significant arthropathy. SOFT TISSUES:Negative. No visible soft tissue swelling. EFFUSION:None visible. OTHER: Negative. IMPRESSION: No acute abnormality Electronically authenticated by: EDUARDO CROSS Date: 2022-03-29 16:01[facility]08-05-2022 Evaluation + Plan noteExtracted from: Title:Pain management [...] Date:03/26/2022 11:15:00 AM Scheduled Provider:Ade Hennessy PA-C Location:.[facility] Appointment Type:Pain Management - Follow Up (FT) [facility]05-13-2022 Evaluation + Plan noteExtracted from: Title:Pain management [...] reevaluation. Call the clinic sooner if necessary. [facility] Future Appointments Appointment Date:11/17/2021 08:45:00 AM Scheduled Provider:Ade Hennessy PA-C [facility] [place] App[facility] Future Appointments Appointment Date:02/09/2022 10:00:00 AM Scheduled Provider:Ade Hennessy PA-C Location:[facility] [place] Appointment Type:Pain Management - Follow Up (FT[facility] note Future Appointments Appointment Date:03/26/2022 11:15:00 AM Scheduled Provider:Ade Hennessy PA-C Location:[facility] [place] Appointment Type:Pain Management - Follow Up (FT) [facility] + Plan note Future Appointments Appointment Date:03/26/2022 11:15:00 AM Scheduled Provider:Ade Hennessy PA-C Location:[facility] [place] Appointment Type:Pain Management - Follow Up (FT) Diagnostic Tests Pending * T3 Free 02/21/22 [facility] + Plan note Future Appointments Appointment Date:04/30/2022 04:45:00 PM Scheduled Provider: Location:[facility] [place] Appointment Type:PT Eval (FT) Appointment Date:05/18/2022 11:15:00 AM Scheduled Provider:Ade Hennessy PA-C Location:[facility] [place] Appointment Type:Pain Management - Follow Up (FT) Diagnostic Tests Pending * Group A Strep by PCR 04/23/22 [facility] + Plan note Future Appointments Appointment Date:08/14/2022 10:00:00 AM Scheduled Provider: Location:[facility] Appointment Type:Surgery FT Appointment Date:08/31/2022 08:45:00 AM Scheduled Provider:Ade Hennessy PA-C Location:[facility] [place] Appointment Type:Pain Management - Follow Up (FT[facility] note Future Appointments Appointment Date:08/31/2022 08:45:00 AM Scheduled Provider:Ade Hennessy PA-C Location:[facility] [place] Appointment Type:Pain Management - Follow Up (FT[facility] note Future Appointments Appointment Date:10/01/2022 10:30:00 AM Scheduled Provider:Ade Hennessy PA-C Location:[facility] [place] Appointment Type:Pain Management - [facility] Up [facility] Future Appointments Appointment Date:06/10/2023 03:00:00 PM Scheduled Provider:Ade Hennessy PA-C Location:[facility] [place] Appointment Type:Pain Management - [facility] Up ([facility]* Diagnosis 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 Brain tumor (HCC) Neoplasm of unspecified nature of brain documented in this encounter [facility] note* Diagnosis Radiculopathy, lumbar region- Primary Thoracic or lumbosacral neuritis or radiculitis, unspecified Intractable chronic migraine without aura and without status migrainosus Chronic migraine without aura, with intractable migraine, so stated, without mention of status migrainosus Essential tremor Essential and other specified forms of tremor Depression, unspecified depression type Anxiety Anxiety state, unspecified documented in this encounter [facility] course Narrative No data available for this section [facility] No data available for this section [facility] No data available for this section [facility] Summary Purpose Family History No Family History [...] and content) DATE CREATED AUTHOR 12/26/2017 [facility] DATE CREATED AUTHOR AUTHOR'S ORGANIZ ATION 10/13/2022 [facility] DATE CREATED AUTHOR AUTHOR'S ORGANIZ ATION 10/15/20[facility] DATE CREATED AUTHOR AUTHOR'S ORGANIZ ATION 02/06/2023 [facility] DATE CREATED AUTHOR AUTHOR'S ORGANIZ ATION 05/09/2023 [facility] DATE CREATED AUTHOR AUTHOR'S ORGANIZ ATION 08/24/2023 [facility] DATE CREATED AUTHOR AUTHOR'S ORGANIZ ATION 09/08/2023 [facility] Care Team (unrecognized sect ion and content) Commissioner Of Officials Relationship Specialty Start Date End Date Pepe Alcazar MD PCP - General Family Medicine 05/10/15 Commissioner Of Officials Relationship Specialty Start Date End Date Pepe Alcazar MD PCP - General Family Medicine 05/10/15 Commissioner Of Officials Relationship Specialty Start Date End Date Pepe Alcazar MD PCP - General Family Medicine 05/10/15 Commissioner Of Officials Relationship Specialty Start Date End Date Pepe Alcazar MD PCP - General Family Medicine 05/10/15 Source Comments (unrecognize d section and content) In the event this informatio n is protected by the Federal Confidentiality of Alcohol and Drug Abuse Patient Records regulations: The Federal rules restrict any use of the information to criminally investigate or prosecute any alcohol or drug abuse patient.[facility]In the event this information is protected by the Federal Confidentiality of Alcohol and Drug Abuse Patient Records regulations: The Federal rules restrict any use of the information to criminally investigate or prosecute any alcohol or drug abuse patient.[facility]In the event this information is protected by the Federal Confidentiality of Alcohol and Drug Abuse Patient Records regulations: The Federal rules restrict any use of the information to criminally investigate or prosecute any alcohol or drug abuse patient.[facility]In the event this information is protected by the Federal Confidentiality of Alcohol and Drug Abuse Patient Records regulations: The Federal rules restrict any use of the information to criminally investigate or prosecute any alcohol or drug abuse patient.[facility] Reason for Visit (unrecogniz ed section and content) Reason Comments Insurance Authorization Emgality 120MG/M L auto-injectors (migraine) Reason Comments Radiology MRI Reason Comments New Patient Specialty Diagnoses / Procedures Referred By Contac t Referred To Contact Neurosurgery Diagnoses Brain tumor (HCC) Procedures CONSULT TO NEUROSURGERY OFFICE/OUTPATIENT NEW HIGH MDM 60-74 MINUTES Stalin Reyes MD [address] [place] [address] Referral ID Status Reason Start Date Expiration Date V isits Requested Visits Authorized [id number] Closed PCP Requested Referral 12/17/2022 12/17/2023 1 [...] BE BASED ON THE PRIMARY CLINICAL RECORDS. [facility]. provides no warranty or guarantee of the accuracy or completeness of information in this document.
[2023-09-11 12:29] LABS: Internal Control Within Normal Limits; Strep A Antigen Screen Negative
[2023-09-11 13:40] LABS: Mono Screen NEGATIVE (NEGATIVE)
[2023-09-11 16:06] LABS: DNU Virus A DNU B by PCR DNU NEGATIVE (NEGATIVE)
[2023-09-11 16:31] LABS: SARS-CoV-2 NAA NOT DETECTED (NOT DETECTE)
== END 2023-09-11 11:31 | disposition home or self-care (01) ==
LOC: LAB 11:31
PROVIDERS: PCP Family Medicine; Visit Provider Nurse Practitioner Family
DX: J06.9 Acute upper respiratory infection, unspecified (principal)
CPT/HCPCS: 86308; 87070; 87635; 87798; 87804; 87880

== ENCOUNTER 2023-10-07 07:40 | Outpatient (OUT) | payer OTHER, SELFPAY ==
--- OUTSIDE RECORDS SUMMARY | 2023-10-07 07:45 | XMS_ITS | CCD ---
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 mist vaporizer or humidifier in your bedroom or your home to help loosen secretions. ? If your cough is worse at night, try to sleep in a semi-upright position. ? Rest as needed. ? Keep all follow-up visits as told by your health care provider. This is important. Contact a health care provider if you: ? Have new symptoms. ? Cough up pus. ? Have a cough that does not get better after 2?3 weeks or gets worse. ? Cannot control your cough with cough suppressant medicines and you are losing sleep. ? Have pain that gets worse or pain that is not helped with medicine. ? Have a fever. ? Have unexplained weight loss. ? Have night sweats. Get help right away if: ? You cough up blood. ? You have difficulty breathing. ? Your heartbeat is very fast. These symptoms may represent a serious problem that is an emergency. Do not wait to see if the symptoms will go away. Get medical help right away. Call your local emergency services (911 in the [place] Do not drive yourself to the hospital. Summary ? Coughing is a reflex that clears your throat and your airways. It is normal to cough occasionally, but a cough that happens with other symptoms or lasts a long time may be a sign of a condition that needs treatment. ? Take pkua-lix-imsaltx and prescription medicines only as told by your health care provider. ? Always cover your mouth when you cough. ? Contact a health care provider if you have new symptoms or a cough that does not get better after 2?3 weeks or gets worse. This information is not intended to replace advice given to you by your health care provider. Make sure you discuss any questions you have with your health care provider. Document Revised: 07/13/2019 Document Reviewed: 07/13/2019 [employer] Patient Education ? 2022 Tap[employer]wd. [facility] ED Patient Summaryon 024 ED Patient Summary (Inserted Image. Lucie ble to display) [place] [id number] Patient Discharge Instructions Person Information Name: MITESH BURGESS Age: 43 Years Arrival Date: 09/28/2023 01:06:05 Discharge Diagnosis: Cough Primary Care Physician: Pepe Alcazar MD Provider Information Primary Provider: Dandy Ashton DO Advanced Preform Machine Operator:None The exam and treatment you received in the Emergency Department were for an urgent problem and are not intended as complete care. It is important that you follow up with a doctor, nurse practitioner, or physician?s information assistant for ongoing care. If your symptoms [...] Follow-up Instructions: With: Address: When: Pepe Alcazar [address], [address] [place] [id number] Business (1) In 7 days 10/05/2023, only if needed In the event that this physician does not participate in your insurance network, please consult with your insurance company to find a nearby participating provider. Patient Education Materials: Cough, Adult A MESSAGE TO ALL PATIENTS REGARDING OPIOIDS PRESCRIPTION OPIOIDS: WHAT YOU NEED TO KNOW Prescription opioids can be used to help relieve mfhtzbyg-bm-nhfhxl pain and are often prescribed following a [...] be struggling with addiction, tell your health health care facilities inspector and ask for guidance or call [facility]S National Helpline at 9-994-984-OXVW. h Source: Department of (more content not included)... [facility] Influenza A&B Agon Influenzae A Ag Negative Normal Negative [facility] Comment on above: Performed By: #### 1 [id number], [id number] ####[facility] [address] [place] [address] Influenzae B Ag Negative Normal Negative [facility] Comment on above: Result Comment: Test sensitivity and specificity vary for age group, specimen type, antigen types, and prevalence of disease. Test results must be evaluated in conjunction with other clinical data available to the physician. Individuals who received nasally administered Influenza A vaccine may have positive test results up to 3 days after vaccination. Performed By: #### 1 [id number], [id number] ####[facility] [address] [place] [address] MICRO OTHER TESTSOrdered By: Hank Noel on 09-28-2023 Influenzae A Ag Negative (323/24 1:41 AM) Normal Negative [facility] Man Sero Influenzae B Ag Negative 1 (09/28/23 1:41 AM) Normal Negative [facility] Sero Comment on above: Interpretive Data: T est sensitivity and specificity vary for age group, specimen type, antigen types, and prevalence of disease. Test results must be evaluated in conjunction with other clinical data available to the physician. Individuals who received nasally administered Influenza A vaccine may have positive test results up to 3 days after vaccination. Rapid COV Int NEG Ctl Pass (09/28/23 1:41 AM) Normal [facility] Man Sero Rapid COV Int POS Ctl Pass (09/28/23 1:41 AM) Normal [facility] Sero SARS-CoV+SARS-CoV-2 (COVID-19) Ag IA.rapid Ql (Resp) Not Detected 2 (09/28/23 1:41 AM) Normal Not Detected [facility] Sero Comment on above: Interpretive Data: T he [employer] Veritor System for Rapid Detection of SARS-CoV-2 is a chromatographic digital immunoassay intended for the direct and qualitative detection of SARS-CoV-2 nucleocapsid antigens in nasal swabs from individuals who are suspected of COVID-19 by their healthcare provider within the first five days of the onset of symptoms. Negative results should be treated as presumptive, do not rule out SARS-CoV-2 infection and should not be used as the sole basis for treatment or patient management decisions, including infection control decisions. Negative results should be considered in the context of a patient s recent exposures, history and the presence of clinical signs and symptoms consistent with COVID-19, and confirmed with a molecular assay, if necessary, for patient management. For in vitro diagnostic use. In the [place], only for use under an Emergency Use Authorization. In the [place], this test has not been FDA cleared or approved; this test has been authorized by FDA under an EUA for use by authorized laboratories; use by laboratories certified under the CLIA, 42 U.S.C. 263a, that meet requirements to perform moderate, high, or waived complexity tests and at the Point of Care (POC), i.e., in patient care settings operating under a CLIA Certificate of Waiver, Certificate of Compliance, or Certificate of Accreditation. This test has been authorized only for the detection of proteins from SARS-CoV-2, not for any other viruses or pathogens; and, in the [place], this test is only authorized for the duration of the declaration that circumstances exist justifying the authorization of emergency use of in vitro diagnostics for detection and/or diagnosis of the virus that causes COVID-19 under Section 564(b)(1) of the Act, 21 U.S.C. 360bbb-3(b)(1), unless the authorization is terminated or revoked sooner. Prescriptions/Work Noteson 0 09-28-2023 Prescriptions/Work Notes [id number] [facility] Rapid COVID Antigen ([facility])on 09-28-2023 Rapid COV Int NEG Ctl Pass Normal [facility] Comment on above: Performed By: #### 1 [id number], [id number] ####[facility] [address] [place] [address] Rapid COV Int POS Ctl Pass Normal [facility] Comment on above: Performed By: #### 1 [id number], [id number] ####[facility] [address] [place] [address] SARS-CoV+SARS-CoV-2 (COVID-19) Ag IA.rapid Ql (Resp) Not detected Normal Not Detected [facility] Comment on above: Result Comment: The [employer]? System for Rapid Detection of SARS-CoV-2 is a chromatographic digital immunoassay intended for the direct and qualitative detection of SARS-CoV-2 nucleocapsid antigens in nasal swabs from individuals who are suspected of COVID-19 by their healthcare provider within the first five days of the onset of symptoms. Negative results should be treated as presumptive, do not rule out SARS-CoV-2 infection and should not be used as the sole basis for treatment or patient management decisions, including infection control decisions. Negative results should be considered in the context of a patient?s recent exposures, history and the presence of clinical signs and symptoms consistent with COVID-19, and confirmed with a molecular assay, if necessary, for patient management. For in vitro diagnostic use. In the [place], only for use under an Emergency Use Authorization. In the [place], this test has not been FDA cleared or approved; this test has been authorized by FDA under an EUA for use by authorized laboratories; use by laboratories certified under the CLIA, 42 U.S.C. ?263a, that meet requirements to perform moderate, high, or waived complexity tests and at the Point of Care (POC), i.e., in patient care settings operating under a CLIA Certificate of Waiver, Certificate of Compliance, or Certificate of Accreditation. This test has been authorized only for the detection of proteins from SARS-CoV-2, not for any other viruses or pathogens; and, in the [place], this test is only authorized for the duration of the declaration that circumstances exist justifying the authorization of emergency use of in vitro diagnostics for detection and/or diagnosis of the virus that causes COVID-19 under Section 564(b)(1) of the Act, 21 U.S.C. ? 360bbb-3(b)(1), unless the authorization is terminated or revoked sooner. Performed By: #### 1 [id number], [id number] ####[place] [id number] XR Chest 2 Viewson XR Chest 2 Views Exam Date/Time: 09/28/2023 01:42 EDT Reason for Exam: Cough Report IMPRESSION: NO RADIOGRAPHIC EVIDENCE OF ACUTE INTRATHORACIC PROCESS. EXAMINATION: XR Chest 2 Views HISTORY: Cough TECHNIQUE: Frontal and lateral views of the chest. COMPARISON: 08/23/2021 FINDINGS: Cardiomediastinal silhouette is within normal limits. No pneumothorax, pleural effusion, or consolidation. No acute osseous abnormality. Ordering Provider: Dandy Ashton FINAL REPORT Dictated: 09/28/2023 8:22 am Josse Stiles DO Signed (Electronic Signature): 09/28/2023 8:22 am Signed by: Josse Stiles DO Transcribed by: ANGELITA Technologist: YESSNEIA Technical Comments Radiation Dose: Kar in mGy = na DAP = na [facility] ED Clinical Summaryon 2023 ED Clinical Summary (Inserted Image. Lucie ble to display) [address] [address] ED Clinical Summary Person Information Name: MITESH BURGESS [facility] Age: 43 Years : 1980 Sex: Female Language: Liberian PCP: Pepe Alcazar MD Marital Status: Phone: [phone] Visit Id: Visit Reason: Anxiety; Headache; PANIC ATTACH HEADACHE Speciality: Acuity: 3 Enc Type: Emergency Med Service: Emergency Arrival: 09/17/2023 20:38:29 Discharge: 09/17/2023 23:38:28 LOS: 000 03:00 Checkin: 09/17/2023 20:38:29 Checkout: 09/17/2023 23:38:28 Dispo Type: Home (Routine DC) EVENTS: Event Name Event Status Request Date/Time Start Date/Time Complete Date/Time Arrive Complete 09/17/2023 20:38:29 09/17/2023 20:38:29 09/17/2023 20:38:29 Document Home Meds Request 09/17/2023 20:38:29 Triage Complete 09/17/2023 20:38:29 09/17/2023 20:47:22 09/17/2023 20:47:22 Bed Assign Complete 09/17/2023 20:40:14 09/17/2023 20:40:14 09/17/2023 20:40:14 Dr Exam Complete 09/17/2023 20:40:14 09/17/2023 20:40:20 09/17/2023 20:40:20 RN Exam Complete 09/17/2023 20:40:14 09/17/2023 21:13:20 09/17/2023 21:13:20 Registration Complete 09/17/2023 20:40:20 09/17/2023 20:40:41 09/17/2023 20:40:41 Reg Complete Request 09/17/2023 20:40:41 Reg Bed Request Complete 09/17/2023 20:40:41 09/17/2023 20:40:41 09/17/2023 20:40:41 Meds Admin Complete 09/17/2023 20:51:02 09/17/2023 21:09:35 Meds Admin Complete 09/17/2023 21:51:54 09/17/2023 22:10:33 Discharge Complete 09/17/2023 23:19:55 09/17/2023 23:38:36 09/17/2023 23:38:36 Transfer Complete 09/17/2023 23:38:36 09/17/2023 23:38:36 09/17/2023 23:38:36 ADDRESS: [address] [place] [address] [address] [place] [id number] PHYS DOC NOTES: MEDICAL INFORMATION: Prescriptions Given: Medications to Continue with No Changes Other Medications ascorbic acid (Vitamin C 500 mg Tab) 1 Tablets By Mouth every day. busPIRone (busPIRone 15 mg Tab) 1 Tablets By Mouth 3 times a day. cetirizine (Zyrtec) 10 Milligram By Mouth every day as needed Allergy symptoms. cholecalciferol (Vitamin D3 2000 intl units) daily. desvenlafaxine (Pristiq 100 mg Tab-ER) 2 Tablets By Mouth every day. deutetrabenazine (Austedo XR 12 mg oral tablet, extended release) 1 tab By Mouth every day. deutetrabenazine (Austedo XR 24 mg oral tablet, extended release) 1 tab By Mouth every day. hydrOXYzine (hydrOXYzine pamoate 25 mg Cap) 1 Capsules By Mouth 4 times a day as needed for anxiety. lamotrigine (Lamictal 25 mg Tab) 2 Tablets By Mouth at bedtime. lamotrigine (Lamictal) 200 Milligram By Mouth at bedtime. levothyroxine (levothyroxine 50 mcg (0.05 mg) Tab) TAKE 1 TABLET BY MOUTH EVERY DAY. Misc Prescription (LIOTHYRONINE SOD 5 MCG TAB) 0. multivitamin (Multi Vitamins oral tablet) 1 Tablets By Mouth every day. pregabalin (Lyrica 150 mg Cap) 1 Capsules By Mouth 2 times a day. Refills: 1. topiramate (Trokendi XR 100 mg oral capsule, extended release) TAKE 1 CAPSULE BY MOUTH EVERY DAY. PATIENT EDUCATION INFORMATION: Instructions: General Headache Without Cause Follow up: With: Address: When: Pepe Alcazar [address] [place] [address], [facility] [place] [address] Business (1) In 3 days DIAGNOSIS: Headache [facility] ED Note-Physicianon 09-18-19 ED Note-Physician Basic Information Time Seen: Dandy Ashton DO 09/17/2023 20:40 Chief Complaint Pt. presents to the ed with c/o headache and panick attack. Pt. took tyelonol around 1700, pt. also took vistiril [employer]ER. pt. is alert and oriented x 4 upon arrival. History of Present Illness HPI: Patient is a 43-year-old female with past medical history of anxiety, bipolar, migraines who presents the ED for migraine headache. Patient states that she has been going through a custody pacheco with her ex- and today had an argument with him. She states that this triggered a panic attack for which she took a Vistaril at home. She states that the panic attack is resolving but she is now feeling like she has had a migraine headache since 1999 tonight. She states that she has a history of migraines and this feels like her typical migraines which often do, after her panic attacks. She denies any vision changes, numbness, weakness. She denies any fever or chills. She tried taking some Tylenol at home with minimal relief. ROS: Pertinent review of systems conducted and is negative except as noted above. Physical exam: General: nontoxic appearing and in no distress HEENT: Mucous membranes moist Neuro: awake and alert. Cranial nerves II through XII are intact. Gross motor sensation all 4 extremities are intact. Neck: supple, trachea midline Card: Heart regular rate and rhythm no murmur Resp: Lungs clear to auscultation no wheeze or rhonchi Physical Exam Vitals & Measurements T: 36.9 ?C(Oral) HR: 85(Peripheral) RR: 18 BP: 122/55 SpO2: 97% HT: 160.02 cm WT: 95.9 kg BMI: 37.45 Medical Decision Making MEDICAL DECISION MAKING Number and Complexity of Problems Differential Diagnosis: [] [facility] Data External documents reviewed: N/A My EKG interpretation: Noted in chart if applicable My CT interpretation: N/A My X-ray interpretation: Noted in chart if applicable My Ultrasound interpretation: N/A Decision rules/scores evaluated: N/A Discussed with: N/A Treatment and Disposition ED Course: Patient is well-appearing in no distress. She is neurologically intact on exam. No signs of meningitis. This is similar to her previous migraines we will treat her with IV fluids as well as Toradol Reglan and Benadryl. On my first reassessment she did have some improvement but still has somewhat of a headache so we will give her 0.5 Ativan as well as a dose of IV magnesium. After the second round of medication she had complete resolution of her headache and felt much better. Discussed plan of discharge with close follow-up with her primary care physician. Discussed return precautions. Patient was discharged stable condition. Shared decision making: As above Code status: N/A Assessment/Plan Headache (R51.9: Headache, unspecified) Orders: diphenhydrAMINE, 25 mg = 0.5 mL, Injection, IV Push, Once, Stop date 09/17/23 20:50:00 EDT, STAT, Start date 09/17/23 20:50:00 EDT, 09/17/23 20:50:00 EDT ketorolac, 15 mg = 1 mL, Injection, IV Push, Once, Stop date 09/17/23 20:50:00 EDT, STAT, Start date 09/17/23 20:50:00 EDT, 09/17/23 20:50:00 EDT lorazepam, 0.5 mg = 0.25 mL, Injection, IV Push, Once, Stop date 09/17/23 22:00:00 EDT, Start date 09/17/23 22:00:00 EDT, 09/17/23 21:43:00 EDT magnesium sulfate + Dextrose 5% in Water intravenous solution 100 mL, 1 gram = 100 mL, Soln-IV, IV Piggyback, Once, Stop date 09/17/23 21:43:00 EDT, STAT, Start date 09/17/23 21:43:00 EDT, 100 mL/hr, Infuse over 60 minute(s), 09/17/23 21:43:00 EDT metoclopramide, 10 mg = 2 mL, Injection, IV Push, Once, Stop date 09/17/23 20:50:00 EDT, STAT, Start date 09/17/23 20:50:00 EDT, 09/17/23 20:50:00 EDT Sodium Chloride 0.9% intravenous solution, 1,000 mL, Soln-IV, IV, Once, Stop date 09/17/23 20:50:00 EDT, STAT, Start date 09/17/23 20:50:00 EDT, Infuse over 61, minute(s) Medications Administered Given diphenhydrAMINE 50 mg/mL Inj, 25 mg, IV Push ketorolac 15 mg/mL Inj, 15 mg, IV Push LORazepam 2 mg/mL Inj, 0.5 mg, IV Push magnesium additive 1 gm + Dextrose 5% in Water intravenous solution 100 mL, IV Piggyback metoclopramide 5 mg/mL Inj, 10 mg, IV Push NS 1000 ml Bolus, 1000 mL, IV Disposition Plan Discharge Prescription List Prescriptions No active prescription medications Follow-up With When Contact Information Pepe Alcazar In 3 days [address] [facility] [address] Business (1) Additional Instructions: Patient Education General Headache Without Cause Problem List/Past Medical History Ongoing Anxiety Ascending aorta dilation Bipolar disorder Labral tear of shoulder Neuropathy Historical Migraine Seasonal allergies Procedure/Surgical History Injection of nerve root of lumbar spine using fluoroscopic guidance (05/07/2023), Injection of nerve root of lumbar spine using fluoroscopic guidance (08/14/2022), Injection of sacroiliac joint (01/16/2022), Injection of nerve root of lumbar spine using fluoroscopic guidance ( (more content not included)... [facility] Comment on above: Result Comment: Elec tronically Signed By: Dandy Ashton DO\.br\Date and Time Signed: 09/17/23 23:21 EDT ED Patient Education Noteon 09-18-2023 ED Patient Education Note Neurology General Headache Without Cause A headache is pain or discomfort felt around the head or neck area. There are many causes and types of headaches. A few common types include: ? Tension headaches. ? Migraine headaches. ? Cluster headaches. ? Chronic daily headaches. Sometimes, the specific cause of a headache may not be found. Follow these instructions at home: Watch your condition for any changes. Let your health care provider know about them. Take these steps to help with your condition: Managing pain ? Take faau-gxi-tgabpxj and prescription medicines only as told by your health care provider. Treatment may include medicines for pain that are taken by mouth or applied to the skin. ? Lie down in a dark, quiet room when you have a headache. ? Keep lights dim if bright lights bother you or make your headaches worse. ? If directed, put ice on your head and neck area: ? Put ice in a plastic bag. ? Place a towel between your skin and the bag. ? Leave the ice on for 20 minutes, 2?3 times per day. ? Remove the ice if your skin turns bright red. This is very important. If you cannot feel pain, heat, or cold, you have a greater risk of damage to the area. ? If directed, apply heat to the affected area. Use the heat source that your health care provider recommends, such as a moist heat pack or a heating pad. ? Place a towel between your skin and the heat source. ? Leave the heat on for 20?30 minutes. ? Remove the heat if your skin turns bright red. This is especially important if you are unable to feel pain, heat, or cold. You have a greater risk of getting burned. Eating and drinking ? Eat meals on a regular schedule. ? If you drink alcohol: ? Limit how much you have to: ? 0?1 drink a day for women who are not . ? 0?2 drinks a day for men. ? Know how much alcohol is in a drink. In the [place] one drink equals one 12 oz bottle of beer (355 mL), one 5 oz glass of wine (148 mL), or one 1? oz glass of hard liquor (44 mL). ? Stop drinking caffeine, or decrease the amount of caffeine you drink. ? Drink enough fluid to keep your urine pale yellow. General instructions ? Keep a headache journal to help find out what may trigger your headaches. For example, write down: ? What you eat and drink. ? How much sleep you get. ? Any change to your diet or medicines. ? Try massage or other relaxation techniques. ? Limit stress. ? Sit up straight, and do not tense your muscles. ? Do not use any products that contain nicotine or tobacco. These products include cigarettes, chewing tobacco, and vaping devices, such as e-cigarettes. If you need help quitting, ask your health care provider. ? Exercise regularly as told by your health care provider. ? Sleep on a regular schedule. Get 7?9 hours of sleep each night, or the amount recommended by your health care provider. ? Keep all follow-up visits. This is important. Contact a health care provider if: ? Medicine does not help your symptoms. ? You have a headache that is different from your usual headache. ? You have nausea or you vomit. ? You have a fever. Get help right away if: ? Your headache: ? Becomes severe quickly. ? Gets worse after moderate to intense physical activity. ? You have any of these symptoms: ? Repeated vomiting. ? Pain or stiffness in your neck. ? Changes to your vision. ? Pain in an eye or ear. ? Problems with speech. ? Muscular weakness or loss of muscle control. ? Loss of balance or coordination. ? You feel faint or pass out. ? You have confusion. ? You have a seizure. These symptoms may represent a serious problem that is an emergency. Do not wait to see if the symptoms will go away. Get medical help right away. Call your local emergency services (911 in the [place] Do not drive yourself to the hospital. Summary ? A headache is pain or discomfort felt around the head or neck area. ? There are many causes and types of headaches. In some cases, the cause may not be found. ? Keep a headache journal to help find out what may trigger your headaches. Watch your condition for any changes. Let your health care provider know about them. ? Contact a health care provider if you have a headache that is different from the usual headache, or if your symptoms are not helped by medicine. ? Get help right away if your headache becomes severe, you vomit, you have a loss of vision, you lose your balance, or you have a seizure. This information is not intended to replace advice given to you by your health care provider. Make sure you discuss any questions you have with your health care provider. Document Revised: 11/22/2021 Document Reviewed: 11/22/2021 Elsevier Patient Education ? 2022 Elsevier Inc. [facility] ED Patient Summaryon 024 ED Patient Summary (Inserted Image. Lucie ble to display) [address] [address] Patient Discharge Instructions Person Information Name: MITESH BURGESS Age: 43 Years Arrival Date: 09/17/2023 20:38:29 Discharge Diagnosis: Headache Primary Care Physician: Pepe Alcazar MD Provider Information Primary Provider: Dandy Ashton DO Advanced Preform Machine Operator:None The exam and treatment you received in the Emergency Department were for an urgent problem and are not intended as complete care. It is important that you follow up with a doctor, nurse practitioner, or physician?s information assistant for ongoing care. If your symptoms [...] Follow-up Instructions: With: Address: When: Pepe Alcazar [address] [place] [address], [address] [place] [phone] Business (1) In 3 days In the event that this physician does not participate in your insurance network, please consult with your insurance company to find a nearby participating provider. Patient Education Materials: General Headache Without Cause A MESSAGE TO ALL PATIENTS REGARDING OPIOIDS PRESCRIPTION OPIOIDS: WHAT YOU NEED TO KNOW Prescription opioids can be used to help relieve tmftztsl-az-heggby pain and are often prescribed following a [...] be struggling with addiction, tell your health health care facilities inspector and ask for guidance or call SAMHSA?S National Helpline at [phone]. w Source: Department of [facility] (more content not included)... [facility] Monitor Recordon 09-18-2023 Monitor Record [id number]#1.00TIFF [facility] Monitor Record [id number]#1.00TIFF [facility] Consent for Treatmenton 09-05 Consent for Treatment [id number]#1.00TIFF [facility] Nonvisit Note - PTon 024 Nonvisit Note - PT Patient cancelled to day's PT session. 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 cxl last two apts. [facility] Nonvisit Note - PTon 024 Nonvisit Note - PT Patient cancelled to day's session, no reason given to BEADER TENDER. [facility] Nonvisit Note - PTon 024 Nonvisit Note - PT Pt. cancelled PT appointment on 08/08/23. States she twisted wrong and is in a lot of pain. Next appointment confirmed. [facility] Nonvisit Note - PTon 024 Nonvisit Note - PT Patient cancelled to day's PT appointment, no reason given to BEADER TENDER. [facility] PT - [place] 08-02-2023 PT - Orders [id number]#1.00TIFF [facility] Insurance Correspondenceon 0 07-30-2023 Insurance Correspondence [facility] Reference #: [id number] approved for 72 units of PT - DOS 07/30/2023-10/04/2023 CPT 03591,54119,29917,10028,9 7032,23321,01435 Reference #: [id number] Description: Outpatient Elective Place Of Service: [address] [facility] Submitting Provider: [facility] Requesting/Ordering Provider: [facility], [facility] Servicing/Rendering Provider: [facility] Facility: Member Information Member Name: Mitesh Burgess [facility] Id: [id number] Date: 1980 Gender: Female Service Event Diagnosis Code: M54.16 Radiculopathy, lumbar region Procedure: PT - Physical Therapy, Outpatient Line #1 Requested Received Date: 07/30/2023 12:17:22 PM Requested Units: 72 Start Date of Service: 07/30/2023 Authorized Units: 72 End Date of Service: 10/04/2023 Status: Approved Service Event Diagnosis Code: M54.16 Radiculopathy, lumbar region Procedure: 43361 Therapeutic procedure, 1 or more areas, each 15 minutes; aquatic therapy with therapeutic exercises Line #1 Requested Received Date: 07/30/2023 12:17:22 PM Requested Units: 72 Start Date of Service: 07/30/2023 Authorized Units: 72 End Date of Service: 10/04/2023 Status: Approved Service Event Diagnosis Code: M54.16 Radiculopathy, lumbar region Procedure: 32955 Therapeutic procedure, 1 or more areas, each 15 minutes; gait training (includes stair climbing) Line #1 Requested Received Date: 07/30/2023 12:17:22 PM Requested Units: 72 Start Date of Service: 07/30/2023 Authorized Units: 72 End Date of Service: 10/04/2023 Status: Approved Service Event Diagnosis Code: M54.16 Radiculopathy, lumbar region Procedure: 42022 Manual therapy techniques (eg, mobilization/ manipulation, manual lymphatic drainage, manual traction), 1 or more regions, each 15 minutes Line #1 Requested Received Date: 07/30/2023 12:17:22 PM Requested Units: 72 Start Date of Service: 07/30/2023 Authorized Units: 72 End Date of Service: 10/04/2023 Status: Approved Service Event Diagnosis Code: M54.16 Radiculopathy, lumbar region Procedure: 24320 Application of a modality to 1 or more areas; traction, mechanical Line #1 Requested Received Date: 07/30/2023 12:17:22 PM Requested Units: 72 Start Date of Service: 07/30/2023 Authorized Units: 72 End Date of Service: 10/04/2023 Status: Approved Service Event Diagnosis Code: M54.16 Radiculopathy, lumbar region Procedure: 56685 Application of a modality to 1 or more areas; ultrasound, each 15 minutes Line #1 Requested Received Date: 07/30/2023 12:17:22 PM Requested Units: 72 Start Date of Service: 07/30/2023 Authorized Units: 72 End Date of Service: 10/04/2023 Status: Approved Service Event Diagnosis Code: M54.16 Radiculopathy, lumbar region Procedure: 82477 Application of a modality to 1 or more areas; electrical stimulation (manual), each 15 minutes Line #1 Requested Received Date: 07/30/2023 12:17:22 PM Requested Units: 72 Start Date of Service: 07/30/2023 Authorized Units: 72 End Date of Service: 10/04/2023 Status: Approved Service Event Diagnosis Code: M54.16 Radiculopathy, lumbar region Procedure: 66242 Therapeutic procedure, 1 or more areas, each 15 minutes; therapeutic exercises to develop strength and endurance, range of motion and flexibility Line #1 Requested Received Date: 07/30/2023 12:17:22 PM Requested Units: 72 Start Date of Service: 07/30/2023 Authorized Units: 72 End Date of Service: 10/04/2023 Status: Approved [employer] Invalid Interpretation Code [employer] [facility] Consent for Treatmenton 07-09 Consent for Treatment [id number]#1.00TIFF [facility] PT - Assessmentson PT - Assessments [id number]#1.00TIFF [facility] PT - Consentson 07-29-2023 PT - Consents [id number]#1.00TIFF [facility] PT - [place] 07-29-2023 PT - Orders [id number]#1.00TIFF [facility] Nonvisit Note - PTon 024 Nonvisit Note - PT chart reviewed with eval prepped for scheduled eval. [facility] Nonvisit Note - PTon 023 Nonvisit Note - PT chart reviewed with eval prepped for scheduled eval. [facility] Orders Officeon 06-21-2023 Orders Office [id number]#1.00TIFF [facility] Consent for Treatmenton Consent for Treatment [id number]#1.00TIFF [facility] Consultation Noteon 06-10-20 Consultation Note Patient: [...] BID, # 60 cap(s), Refills(s) 1, [facility]acy: [id number], 161, cm, 06/10/23 15:18:00 EST, Height/Length Dosing, 95.2, kg, 04/19/23 8:29:00 EDT, Weight Dosing albuterol HFA 90 mcg/inh MDI: 2 puff(s), Inhalation, QID Shortness of breath or wheezing, 1 EA, Refill(s) 0, qid and prn sob/wheezing, [id number], 160, cm, 04/27/20 22:06:00 EDT, Height/Length Dosing, 98, kg, 04/27/20 22:06:00 EDT, Weight Dosing methocarbamol 500 mg Tab: 500 mg = 1 tab(s), Oral, TID, PRN Spasm, X 30 day(s), # 90 tab(s), Refills(s) 2, [id number] 161, cm, 06/10/23 15:18:00 EST, Height/Length [...] cyst of lumbar spine / SNOMED CT 7173335983 / Confirmed Neuropathy / SNOMED CT 4295125007 / Confirmed Ascending aorta dilation / SNOMED CT 717778224 / Confirmed Anxiety / SNOMED CT 28787878 / Confirmed Bipolar disorder / SNOMED CT 48077280 / Confirmed Labral tear of shoulder / SNOMED CT 980374281 / Confirmed Resolved: At risk for falls / SNOMED CT 392394917 Problem added when Risk for Falls Careplan was initiated. Resolved due to patient discharge. Resolved: Migraine / SNOMED CT 61780523 Resolved: Seasonal allergies / SNOMED CT [id number]-[id number]-[id number]-8 [id number] Objective Vital Signs 06/10/2023 15:08 EST Peripheral Pulse Rate 76 bpm Respiratory Rate 18 br/min Systolic Blood Pressure 117 mmHg Diastolic Blood Pressure 69 mmHg Mean Arterial Pressure, Cuff 85 mmHg General: Alert and oriented, No acute distress. Eye: Normal conjunctiva. HENT: Normocephalic, Normal hearing. Cardiovascular: No edema. Musculoskeletal Normal range of motion. Normal strength. 5/5 lower extremity strength Integumentary: Warm, Dry, [place]. Injection site well-healed Neurologic: Alert, Oriented. Psychiatric: Cooperative, Appropriate mood & affect. Imp (more content not included)... [facility] Comment on above: Result Comment: Elec tronically Signed By: Ade Hennessy PA-C\.br\Date and Time Signed: 06/10/23 15:27 EST\.br\Electronically Co-Signed By: Hai JAY, Boy Wilson\.br\Date and Time Co-Signed: 06/13/23 10:59 EST Office/Clinic Note-Physician on 06-10-2023 Office/Clinic Note-Physician [id number]#1.00TIF F [facility] Patient Correspondenceon Patient Correspondence [id number]#1.00TIF F [facility] Patient Correspondence [id number]#1.00TIF F [facility] Patient History Officeon Patient History Office [id number]#1.00TIF F [facility] CNOVon 05-08-2023 CNOV Office Visit (NEADFV ) ----- MITESH BURGESS ([id number]) 1980 F Date Time Provider Department 05/08/23 2:30 PM STALIN REYES During your visit today, we recorded the following information about you: Pulse Blood pressure Weight Height 67/minute 111/66 97.2 kg 1.6 Stalin Bundy MD 05/08/2023 3:40 PM S[address] [facility] General Neurology Follow up/ Established patient visit Individuals who were included in, or assisted with the encounter were: Mitesh Reyes MD Chief Complaint/Issues: Mitesh Burgess is a 43 year old R handed female w PMH chronic migraine stopped Emgality half year ago, anxiety, depression, skull mass, seen in the [facility] for General Neurology for: Dizziness, headache and tremor Most Recent Neurological Assessment and Plan: Last Filed Values Date of Most Recent Assessment and Plan 12/17/22 Specialty General Neurology Assessment Mitesh Burgess is a 42 year old R handed female w PMH chronic migraine stopped Emgality half year ago, anxiety, depression, skull mass, seen in the [facility] for General Neurology for: 1. Dizziness, headache [...] pain management. Her pain management is absent [facility]. She has been on Lyrica 300 mg [...] no acute (more content not included)... [facility] Consent for Procedure/Surger yon 05-07-2023 Consent for Procedure/Surgery [id number]#1.00TIFF [facility] Consent for Treatmenton 04-09 Consent for Treatment [id number]#1.00TIFF [facility] Discharge Instructionson Discharge Instructions [id number]#1.00TIFF [facility] IntraOperative Documentson 1 IntraOperative Documents [id number]#1.00TIFF [facility] Main OR Intraoperative Recor don 05-07-2023 Main OR Intraoperative Record IntraOp Document Type FTPM Summary Primary Physician: Boy Valles MD Finalized Date/Time: 05/07/23 09:17:26 Pt. Name: JENIFERMITESH/Sex: 1980 Female Med Rec #: [id number] Physician: Boy Valles MD Financial #: [id number] Pt. Type: P Room/Bed: / Admit/Disch: 05/07/23 07:41:17 - Institution: Case Times FTPM Entry 1 Patient Times In Room 05/07/23 09:11:00 Out Room 05/07/23 09:18:00 Procedure Times Start 05/07/23 09:14:00 Stop 05/07/23 09:17:00 Anesthesia Times Last Modified By: Heaven Butts RN 05/07/23 09:17:09 Case Attendance FTPM Entry 1 Entry 2 Entry 3 Case Attendee Boy Valles MD, RN, Heaven Pires RN, [facility] Role Performed Surgeon - Primary Home Health Care Worker - Primary Scrub - Primary Time In 05/07/23 09:11:00 05/07/23 09:11:00 05/07/23 09:11:00 Time Out 05/07/23 09:18:00 05/07/23 09:18:00 05/07/23 09:18:00 Procedure TRANSFORAMINAL EPIDURAL TRANSFORAMINAL EPIDURAL TRANSFORAMINAL EPIDURAL STEROID INJECTIO(Left) STEROID INJECTIO(Left) STEROID INJECTIO(Left) Comments Last Modified By: Benjamín DOUGLAS, Heaven Butts RN, Heaven Arguello RN 05/07/23 09:17:10 05/07/23 09:17:10 05/07/23 09:17:10 Entry 4 Case Attendee Nish Walker Role Performed Data Entry Machine Operator Time In 05/07/23 09:11:00 Time Out [...] +L5/S1 TFESI Primary Procedure Yes Primary Surgeon Hai JAY, Boy Wilson Start 05/07/23 09:14:00 Stop 05/07/23 09:17:00 Anesthesia [...] and tissue Entry 1 Skin Integrity Intact, [place], Warm, and Skin Abnormality No Dry Outcomes [...] Points Check (more content not included)... [facility] Main OR Preoperative Recordo n 05-07-2023 Main OR Preoperative Record Holding Area Document Type FTPM Summary Primary Physician: Boy Valles MD Finalized Date/Time: 05/07/23 08:11:41 Pt. Name: MITESH BURGESS/Sex: 1980 Female Med Rec #: [id number] Physician: Boy Valles MD Financial #: [id number] Pt. Type: P Room/Bed: / Admit/Disch: 05/07/23 [...] By: Gaby Ambrocio RN 05/07/23 08:11 [facility] Operative Reporton 3 Operative Report [...] 7:56 EDT Respiratory Rate 16 br/min . [facility] Comment on above: Result Comment: Elec tronically Signed By: Hai JAY, Boy Wilson\.br\Date and Time Signed: 05/07/23 09:17 EDT Patient Correspondenceon Patient Correspondence [id number]#1.00TIFF [facility] Insurance Correspondence Off iceon 04-23-2023 Insurance Correspondence Office [id number]#2.00TIFF [facility] Consent for Treatmenton 04-07 Consent for Treatment [id number]#1.00TIFF [facility] Consultation Noteon 04-19-20 Consultation Note Patient: MITESH [...] Refill(s) 0, qid and prn sob/wheezing, [id number], 160, cm, 04/27/20 22:06:00 EDT, Height/Length Dosing, 98, kg, 04/27/20 22:06:00 EDT, Weight Dosing off work: off work, See Instructions, 1 EA, 0, Patient had a procedure with our services. She should be excused from work for 10/30/21 and 10/31/21, Supply pregabalin 225 mg oral capsule: 225 mg = 1 cap(s), Oral, BID, # 60 cap(s), Refills(s) 2, Pharmacy: [facility]/pharmacy #[id number], 158, cm, 08/31/22 9:15:00 EST, Height/Length Dosing, 91.6, kg, 05/18/22 11:25:00 EST, Weight Dosing pregabalin 300 mg Cap: 300 mg = 1 cap(s), Oral, BID, # 60 cap(s), Refills(s) 1, Pharmacy: [facility]/pharmacy #[id number], 158, cm, 10/01/22 10:45:00 EDT, [...] cyst of lumbar spine / SNOMED CT 4470378153 / Confirmed Neuropathy / SNOMED CT 4798275773 / Confirmed Ascending aorta dilation / SNOMED CT 779901237 / Confirmed Anxiety / SNOMED CT 92947495 / Confirmed Bipolar disorder / SNOMED CT 86052289 / Confirmed Labral tear of shoulder / SNOMED CT 623233658 / Confirmed Resolved: At risk for falls / SNOMED CT 822968310 Problem added when Risk for Falls Careplan was initiated. Resolved due to patient discharge. Resolved: Migraine / SNOMED CT 12113746 Resolved: Seasonal allergies / SNOMED CT [id number]-[id number]-90G2-346B-0 [id number] Objective Vital Signs 04/19/2023 8:17 EDT Peripheral [...] seated straight leg raise Integumentary: Warm, Dry, [place]. Neurologic: Alert, Oriented. Psychi (more content not included)... [facility] Comment on above: Result Comment: Elec tronically Signed By: Ade Hennessy PA-C\.br\Date and Time Signed: 04/19/23 08:55 EDT\.br\Electronically Co-Signed By: Boy Valles MD\.br\Date and Time Co-Signed: 04/23/23 12:36 EDT Office/Clinic Note-Physician on 04-19-2023 Office/Clinic Note-Physician [id number]#1.00TIFF [facility] Patient Correspondenceon Patient Correspondence [id number]#1.00TIFF [facility] Patient Correspondence [id number]#1.00TIFF [facility] Patient History Officeon Patient History Office [id number]#1.00TIFF [facility] Discharge Instructionson Discharge Instructions [id number]#1.00CD:1 27 [facility] ED Clinical Summaryon 2022 ED Clinical Summary (Inserted Image. Lucie ble to display) [place] [id number] ED Clinical Summary Person Information Name: MITESH BURGESS [facility] Age: 42 Years : 1980 Sex: Female Language: Liberian PCP: Pepe Alcazar MD Marital Status: Phone: [phone] Visit Id: Visit Reason: Headache; Nausea; HEADACHE [...] 03/15/2023 01:14:43 03/15/2023 01:14:43 03/15/2023 01:14:43 ADDRESS: [address] [place] [address] [address] [place] [phone] [facility] DOC NOTES: MEDICAL INFORMATION: Prescriptions Given: Medications [...] Follow up: With: Address: When: Pepe Alcazar [address] [place] [address], [facility] [address] [place] [phone] Business (1) In 3 days 03/18/2023 Comments: Return to the emergency room if your headache recurs or any new symptoms. DIAGNOSIS: 1:Migraine headache [facility] ED Note-Physicianon 03-15-20 ED Note-Physician [...] and Complexity of Problems Differential Diagnosis: [] [facility] Data External documents reviewed: [] My [...] Inge In 3 days 03/18/2023 EDT [address] [place] [phone] Business (1) Additional Instructions: Return to the [...] Cholecystectomy (12/07/2003), (more content not included)... [facility] Comment on above: Result Comment: Elec tronically Signed By: Chandni Hart M.D..chandan\Date and Time Signed: 03/15/23 03:33 EDT ED [...] these instructions at home: Medicines ? Take ksvm-jmo-haaagkb and prescription medicines only as told by your health care provider. ? Ask your health care provider if the medicine prescribed to you: ? Requires you to avoid driving or using heavy machinery. ? Can cause constipation. You may need to take these actions to prevent or treat constipation: ? Drink enough fluid to keep your urine pale yellow. ? Take ipwj-bfd-qngqefy or prescription medicines. ? Eat foods that [...] different or (more content not included)... [facility] ED Patient Summaryon 023 ED Patient Summary (Inserted Image. Lucie ble to display) [address] [address] Patient Discharge Instructions Person Information Name: MITESH BURGESS Age: 42 Years Arrival Date: 03/14/2023 21:26:36 Discharge Diagnosis: 1:Migraine headache Primary Care Physician: Pepe Alcazar MD Provider Information Primary Provider: Chandni Hart M.D. Advanced Preform Machine Operator:None The exam and treatment you received in the Emergency Department were for an urgent problem and are not intended as complete care. It is important that you follow up with a doctor, nurse practitioner, or physician?s information assistant for ongoing care. If your symptoms [...] Follow-up Instructions: With: Address: When: Pepe Alcazar [address] [place] [address], [address] [place] [phone] Business (1) In 3 days 03/18/2023 Comments: [...] opioids can be used to help relieve hmbtmakw-rw-wxfdzs pain and are often prescribed following a [...] be struggling with addiction, tell your health health care facilities inspector and ask for stacie (more content not included)... [facility] Prescriptions/Work Noteson 0 03-15-2023 Prescriptions/Work Notes [id number]#1.00CD:1 27 [facility] Consent for Treatmenton Consent for Treatment [id number]#1.00CD:12 7 [facility] CNOVon 02-05-2023 CNOV Office Visit (NSCAMN ) ----- MITESH BURGESS ([id number]) 1980 F Date Time Provider Department 02/05/23 [...] No Does patient want to see a Toddler Teacher? No (yes to any of above refer [...] Consultation Referred by Stalin Reyes [address] [facility] [address] Diagnosis: skull hemangioma Subjective History of Present [...] 9.1 B (more content not included)... [facility] MRI BRAIN WO/W IVCONon 01-24 MRI BRAIN [...] anxiety, depression, skull mass, seen in the [facility] for General Neurology for: Dizziness, [...] and is most compatible with intraosseous hemangioma. Manager Inspection: PSCB Transcribe Date/Time: Jan 24 2023 2:35P Dictated by : DONAL BURNS MD This examination was interpreted and the report reviewed and electronically signed by: DONAL BURNS MD on Jan 24 2023 2:42PM EST [id number] [facility] Yumiko 12-18-2022 CNPN Telephone (MNOPRX) ----- MITESH BURGESS ([id number]) 1980 F Date Time Provider Department 12/18/22 EDILBERTO TIRADO MNOPRX During your visit today, we recorded the following information about you: Edilberto Tirado RN 12/18/2022 4:55 PM Signed [facility] received prescription(s) for Emgality 120MG/ML auto-injectors (migraine). Benefits investigation was conducted, indicating that a prior authorization is required. PA was initiated and pending review through [employer]. All pertinent clinical information was submitted to insurance. CMM Garcia: [id number] Ordering Provider: MD Celestino Etienne Alisha, RN [facility] P: , F: Edilberto Tirado RN 12/20/2022 3:59 PM Signed Ambulatory Pharmacy Prior Authorization Note Provider Intervention Required?: No- Pharmacy completed on your behalf. Rx Plan: Medicaid [facility] ([facility]) Drug: Emgality 120MG/ML auto-injectors (migraine) Cover My Meds Garcia: [id number] Determination: Approved Prior Authorization/Case #: n/a Prior [...] refills. Prescriptions will now be processed through [facility] for determination of next steps. For questions relating to this submission, please contact [facility] at [phone] Allergies As of Date: 12/18/2022 Noted Allergy [...] Encounter Status:Closed by EDILBERTO TIRADO on 12/20/[address] [facility] CNOVon 12-17-2022 CNOV Office Visit (NEADFV ) ----- MITESH BURGESS ([id number]) 1980 F Date Time Provider Department 12/17/22 1:30 PM MAN, STALIN CHAN During your visit today, we recorded the following information about you: Pulse Blood pressure Weight Height 71/minute 103/72 101.2 kg 1.6 m Stalin Reyes MD 12/17/2022 2:28 PM Signed [facility] for General Neurology Follow up/ Established patient visit Individuals who were included in, or assisted with the encounter were: Mitesh Burgess Stalin Reyes MD Chief Complaint/Issues: Mitesh Burgess is a 42 year old R handed female w PMH chronic migraine stopped Emgality half year ago, anxiety, depression, skull mass, seen in the [facility] for [facility] Neurology for: Dizziness, headache [...] anxiety, depression, skull mass, [facility] [facility] for: 1. Dizziness, headache [...] without contra (more content not included)... 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/pharmacy #[id number], 161, cm, 11/20/22 10:14:00 EDT, [...] vaccine, inactivated (more content not included)... Normal [facility] Comment on above: Result Comment: [...] numbers. This can be done either in [place] ([place] or metric measurements. Note that charts and online BMI calculators are available to help you find your BMI quickly and easily without having to do these calculations yourself. To calculate your BMI in [place] ([place] measurements: 1. Measure your weight in [...] for Disease Control and Prevention: www.cdc.gov ? [place] [employer]: www.heart.org ? National Heart, Lung, and Blood [place]: www.nhlbi.nih.gov Summary ? Body mass index (BMI) is a number that is calculated from a person's weight and height. ? BMI may help estimate how much of a person's weight is composed of fat. BMI can help identify those who may be at higher risk for certain medical problems. ? BMI can be measured using [place]ian measurements or metric measurements. ? BMI charts are used to identify whether you are underweight, normal weight, overweight, or obese. This information is not intended to replace advice given to you by your health care provider. Make sure you discuss any questions you have with your health care provider. Document Revised: 03/16/2020 Document Reviewed: 01/22/2020 [employer] Patient Education ? 2022 [employer] Orthopedics Ankle Sprain, Phase I Rehab An [...] by your health care provider. Stretching and eiwgv-ky-twylus exercises These exercises warm up your muscles and joints and improve the movement and flexibility of you (more content not included)... Normal [facility] Patient Letter FTon 2022 Patient Letter [facility] (Inserted Image. Lucie ble to display) November 20, 2022 MITESH BURGESS [address] [place] [address] Please excuse MITESH BURGESS from work . Date and/or Time of Absence: 11/19/22 Restrictions: None Comments: Please excuse due to an acute illness. Provider Signature: Yamile Muller APRN, FREELANCE GRAPHIC DESIGNER-C Nurse Practitioner [address] [place] [address] [facility] Office Visiton 10-13-2022 Follow-up visit [id number] Georgia Burgess marilyn Kendall 1980 F Date Provider Department Center 10/13/2022 EDUARDO BLAND MP ORTHO MPORTHO No family history on file Level of Service:23407 [place] OFFICE/OUTPATIENT ESTABLISHED MOD MDM 30-39 MIN (57,GC) Reason for Visit and Comments: Follow-up [[id number]] Normal [facility] Coding Summary.on 10-03-2022 Coding Summary. CD:[id number] Ww+PG hlYWQ+TV7PSFGoR42hnTGulO3 oP5PLFKgGVmijKXJNSTsARoVu iwEwTT9huOLuASHe IC8+UQ7xAJYnItmsuZMar0U1j YY8Z88vzd5gJJgohCF0NPYkWg Svhewbn2pmvOx6PJojXuukZfG t MPWsgC25CNF2yO42Bi64wHNup ZEhj5xutXy2RuBvEFImIUC7rM xvOFobn0WbRLHsA44igATnc1V 6 SWWnyEznxJIyZmFclDR5gV2lD Nbvnuyvp5pciqswIsz9za73cH Feg7L4lSD8Q2AibqZ2LXCfiPJ g GozqnEPBeJ6rfktlx7pcoulkQ lHwIRRqYFk0SGy1IMSbkOynFn CjZN46XZT4QMAggqNyC2XaQOW s dGikWkA5s4C1Zr3QB5KVUxmfX 1VNTUFSWTwvdGQ+YL68kc67E6 OcNzdjElc5JRVuVQX8dIS9uL2 n DWPwVEajt5T9oLA1E3LowkSho n7ut3rjIXTzHXkxP74raKZoe7 D8ENXggFR1JAUjxAvbHrQwpW3 3 Oyc+BNMftVlnk9DeIklrx5ays 7jopTn1JfyeTHNmwlEumJfsEK H0r4FeSq0fERFjbVJ5yRR2zM6 i EgUuQsH7QAktF606ZcVwiIBuA qxsC64uG0AvbJC+XXKxWlb1ZV LlfQclEG0bP2GqGSQybmzhsPE m iUadJB1gFYQqufycXFHuwR7tD IWtV6y0LfZaNnQ1KDufY8TfZN JbunvyUx66lE9oGgWlLaB1NVg u S3PijnM9ANEozBFtKUnfCNF6T 55hc1J6KTHiJYGmLFD3bAZ4mS 1hbGlnbjogbGVmdDsgdmVydGl j SEhlTKejX631GYSxfTszAbLyU GluZyBEYXRlOiAgMDMvMjkvMj AyMzwvdGQ+YSOqQTP7dOzsRMR n qFHrXLarFy4qkMhctNrdNV3wU VYaoengYMYnvB0cLDGyxTXypG ucNO1yIQRqeplfw310MaQqEAM 0 CADlsJOgQ6QrfZ2cFqNjSODbS OCeT5RukZByLQjeR103QRqxEo W9RPKumbAyJ3IoEOCvtJezOdU 0 m6E7Ti9Op2ZvydfdL8NjfYIeX uNoHjdkGJm5R0UxXdjyrHD+PC 65YNVvJS48DOr1DLM0jLidFYx i RCUiR5AitU2iBqFxUDWxCDDoL yc+PHRhYmxlIHdpZHRoPScxMD ZpPhBxyNlbWU9lBi2tALGoFCW v bTmcsMVkAaDvh7goCKIvBLbdD X0whXnfC0FuiTK1IEGwj4n6Ti 66M04oH0GjsOJ+MRZjmDS8pUI 0 dG6nQfJbEqX8GLpxG756KeNaw CJhGdeuc1eml6elfCt6NuO1WM IpmcZngTvmOLO5f1XzNd21X20 s IHdpZHRoPSIxNSUiIHZhbGlnb s1cfI6cTx2+TMAvaFL1mNZ5kT 2lAjBoYxZ4CTtmL157LoNemYV v Tpkvc7zst9evxNd9VaZtSXMqo fTwiFcsLLR5t1KwEl04K7VwlJ ctq7NnFpx9nv77mSYig9H9wVN 9 F7NeRZQfkksozPTaaRxmPI9mL YYuszfpBRVnnT5iVDUrP0k1Kc OuMwN2KWwyP2LvmhV5RPZtpQR g OXYvhTPUsK4qvjrmq7jqtlloC oEaFVOgHAm2YMv2ANSlgWjlAi JiRQR3BhB7MAX9kWPjmS9asMc n snljxT6gXzr+OHS5mKMdrVQNJ E6aJlnmeJP+WEWmZHA3hYeiRW ydXDJbjV8zHOGmX2w5LiFjDiE 1 XVpqB5ZhtdE7FBIprRAdSSQhj IOXcN2kqmomi5tunqymRkBuFT ZzPDx8THq6IRHupBqkKdRsYKC 0 DyD5BXO7qMDqpD9myNhqyyivn G9wOyc+XgtxdPqyERM2JJp4H5 HxNev9TFLffZnePI9maQKsTQq u Do0uhFrlaRadSS7mETXwkozos 776IvGwe4uvYVYmzXPsHPhnPM Y4Y18ws7R7YKVqVMZrWDD3xOU 4 eB8bpMbpkevnoLEucJweowMhb CaxMHcfHYhwB055FGIrxItjDz ViSUe8K9McCbq6SQOdxKvwOZ6 n rPXjBRglHg1ynOvcqAokNH0gF ECvkrmxz613TdRus2yeOLGwsN AtCFycVYU2Z17sq1U1WGUxYPU w BRX8yAI9hA1pqJigwgcetMJnn ZiteoOxuLebFWwhOUmaX090HT VntHvsOcAbgAt2H4XeQal1GAE z aBmvEG6tkXWkOYsbDx4kiLngn PitAJ3eWNPunjzht785LuJdn9 wqHWQbcWUhJLgqUUX5K87la8O 6 OYOvAPTuJJV3rIP2uA0hcQimy jogbGVmdDsgdmVydGljYWwtYW nlK694ILTulCorXcAmaVjxhaN g THjcJEh4J5TpAnixtSZ+PC90Y JJbDH69cWEzaMGoe1sesXn6Ol YwBSWnVCO9pQfcBEulu8WqIIE t Q43huOXbz5D5YLNppDeceBWfD pKpaGQ4rH7wVUislekfh4cyjf evZqjjw5olct20lY72S95dSMz p VOWsNQJmEEHjISHokYqkpo0mf G9wIi8+SVYuvFV0dON2xE1oZK FhTiF2HYyxT660ZyZxfRHiVzi j k3sbf9alyQw9RnC8RQUegkQxo BydKZD4c4PlQi33H10lOJfkVB ZwQJBjQAGsQVGhgZwheo0aeL0 w Ii8+IGKvgIB2zNF0fJ0xZkKaW zK6VLghK794NzWkuVHxTzvkT7 4nV4SwiSZ+VFJvYgh9MXBgkWs s TX0yzIAhCZrmKs3uYXK7IxIgS xHdYQpkI3DrZHPwcwsctdinuD H5MELqJIEyvC20Je0ahVpbCDD w fOWNsI9fybxzb1eqcwvmLmXgQ WOiYLj8GGh9VCBcnZbmSbJlGN J1KfY4JAY8zSSblP9umBcgrfx g lX3dR0NiOJNblpamFg29uY1oJ yQjVlX7DUejOlq+FDfXVX3ZLN CQX76YApeZNIAxXHxirXW+PHR k NIL2bMqePWfcSKGvvB4eIBWfV 5s0OlXiIjR8RDmbP7VrZBJscj riIp95uU2vHyKePfF9CQqrB8L v arE6ZVOcmCXdGIzxXDV7C43mw 6U3DBRsKNXyZWG8tGH4vJ9ntB lnbjogbGVmdDsgdmVydGljYWw t IFkeH438VXSoqBcqQnS6IgC4I mE0Iuu2Q0YyPcd8WOQjdJnnYF 8naSBbDCncEt2tsCultLxaVS8 w JQOcnlreFLCafN9eULUrjVYxg VwqPC3kANRiimrko847VbRlNV D9USKstJLsN2ZgsN1xHjFlKIM w UVMkV5TigHYpSThqJ909MWogO oG6LSCptxLfE5KuYLIzfPdtYz G3n7N2Sr72CwYGWWHkhypfnCB + VGNqUWS7tFesRLseURCerZ4gR QHqG4r2PoCpEmL8VOtoC7FjZI PdrqanQt25vW4eQnUxPtW0NDb u T7JprrU9UQXlfRPzDMjkLDM3W 14rf4C5QNFuWKOjPOV2xEZ1mL 1hbGlnbjogbGVmdDsgdmVydGl j XDajRIvdO389ISPnwIczLhZzj WFsZTwvdGQ+DKMxILY8qOzqSH dxGBRglS1xMCIjF8z1FmHaPcO 1 HBmkJ0UjULKlbjwrBg47rY5sP nBrEoF9IMnxY7KrzsU1DVSheD EoYJlxJBN7Y76mz0J8OQYxLAL w AJU2tTH5yN1fyTuidltwlDVhq OpbatDylZyxFUkhWAysV342LN OanVonWdQxzW8hAFCwJJfxpMY u dDwvdGQ+IS29jg47A4KrQiyaF qd5VBUaTHY2uHE0vX3gPRQiFA srn8D8eBD1U5BwqqLspa9gm6v s QMXqWZsxO73qkYOhv6U3XJZxd NQ8MURhyHxqXgSflB51Naq+PG NemFviz3JyAwmwj1kcp3atzOi 9 BzDdFENkznZylQfiAJC2t1VpR n57U59cOQfiLFPpANZyTPNzKJ YyyTtgte8tdV7eHw1+PGNvbCB 3 tAC9rW4sZtJmFxH7AXaeC260Q rTpkBOoFsssu9ksj8fzpDp1Kc ZtBZOiwsOgyTtdOWO8i7WjMf0 8 V3LywKojd1VoDwi0co69cZIkv 9Z1pQC3A3UqIXYzyrwsrDDbiX xhMK6iHLHefapfJPXbwH5qTEF p R1e3HqMeMiP9QBhsD9DzwnM4Z CGvzGMlXDSpgMVIhO7rqgrgm3 ogkzugNsBuIGAbYNv4RCp1BRM s qClzZbJkPVC4AwR5WPX1aHUdi X4yvEngjrjvyZ8iLci+UGh5c2 onnYIyDR9khXL9ZE01IT54ySN g i8F3kHE1B1FeUSXcmlvbwxigu QU9FLKnUOZzgY75Pf6wvOulTg 5lKKZjWWS0BJHbcKMfP1FpvR3 y JxTmIIMbQKWjK0LszXZbEEmlI 668UYuvJqM6AVXexpJhZ1TnRZ EpwZurVbH6q9M5Ot1NFP50RI7 0 OB23mUGwy3J8xPE4K7WcOWCji cowsavugBK6EMTwIAJkuI91Fw 4djEhlIs9aIHShFTO5YOMcuUF z W7WtoR4rFlWfCEKnRUBoL3Ood CRdANctX197MGwjSrW3NPBatk MsY8PiLOCkoWmcXjM0w6R3Yj3 N Ls05PB76EO61vTCrd4H0kGT5S 8YtKRNgywnuzhsqoFQ5VSWnAS ZfwI00Cf1lnMpjMc0hZFHxVUC 0 ECRfcTGbR3GefM2uQcMmNYWbN IAqU7HzhDBiBCsxK632UIdiNk L9NJAhqmDiU1WtQVPguGamFwA 0 u4G4Er6FVFwpmmi6Q2MsPbbrh HI+HP34TRFuJD45dKIvpIXmp2 xxqYj6RoDaUNCrZWV6yGzsCZi i w7EhCOOt (more content not included)... Normal [facility] Consent for Treatmenton 09-06 Consent for Treatment [id number]:08 03 [facility] Consultation Noteon 10-02-19 Consultation Note Patient: MITESH BURGESS Age: 42 years Sex: Female : 1980 Associated Diagnoses: None Author: Minoo ZAPIEN Ade Subjective Chief complaint 10/01/2022 10:36 EDT low [...] Refill(s) 0, qid and prn sob/wheezing, [id number], 160, cm, 04/27/20 22:06:00 EDT, Height/Length Dosing, 98, kg, 04/27/20 22:06:00 EDT, Weight Dosing off work: off work, See Instructions, 1 EA, 0, Patient had a procedure with our services. She should be excused from work for 10/30/21 and 10/31/21, Supply pregabalin 200 mg Cap: 200 mg = 1 cap(s), Oral, BID, X 30 day(s), # 60 cap(s), Refills(s) 2, [id number] 158, cm, 08/14/22 9:29:00 EST, Height/Length Dosing, 91.6, kg, 05/18/22 11:25:00 EST, Weight Dosing pregabalin 225 mg oral capsule: 225 mg = 1 cap(s), Oral, BID, # 60 cap(s), Refills(s) 2, [id number], 158, cm, 08/31/22 9:15:00 EST, Height/Length Dosing, 91.6, kg, 05/18/22 11:25:00 EST, Weight Dosing pregabalin 300 mg Cap: 300 mg = 1 cap(s), Oral, BID, # 60 cap(s), Refills(s) 1, [id number] 158, cm, 10/01/22 10:45:00 EDT, Height/Length [...] cyst of lumbar spine / SNOMED CT 8602888165 / Confirmed Neuropathy / SNOMED CT 7056009145 / Confirmed 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 Resolved due to patient discharge. Resolved: Migraine / SNOMED CT 81829498 Resolved: Seasonal allergies / SNOMED CT A44367QX-558G-92Q6-171D-5 [id number] Objective Vital Signs 10/01/2022 10:36 EDT Peripheral Pulse Rate 71 bpm Respiratory Rate 18 br/min Systolic Blood Pressure 133 mmHg Diastolic Blood Pressure 83 mmHg Mean Arterial Pressure, Cuff 100 mmHg General: Alert and oriented, No acute distress. Eye: Normal conjunctiva. HENT: Normocephalic, Normal hearing. Cardiovascular: No edema. Musculoskelet (more content not included)... [facility] Comment on above: Result Comment: Elec tronically Signed By: Ade Hennessy PA-C\.br\Date and Time Signed: 10/01/22 11:01 EDT\.br\Electronically Co-Signed By: Boy Valles MD\.br\Date and Time Co-Signed: 10/16/22 15:58 EDT Office/Clinic Note-Physician on 10-01-2022 Office/Clinic Note-Physician [id number]#[id number]:127 [facility] Patient Correspondenceon Patient Correspondence [id number]#[id number]:127 Normal [facility] Patient History Officeon Patient History Office [id number]#[id number]:127 Normal [facility] CHEMISTRYOrdered By: SYSTEM SYSTEM on 09-20-2022 Albumin [...] Normal >=59mL/min/ 1.73 m2 [facility] Chem S Globulin (S) [Mass/Vol] 3.4 g/dL [...] mg/mg Normal 10 - 20 [facility] Remisol HEMATOLOGYOrdered By: SYSTEM SYSTEM on 09-20-2022 Basophils/100 [...] 9.3 E9/L Normal 4.0 - 11.0 E9/L [facility] HemeAutoSS Office Visiton 08-28-2022 Follow-up visit [id number] Georgia Burgess wesleyteresa Faiza 1980 F Date Provider Department Center 08/28/2022 EDUARDO BLAND MP ORTHO MPORTHO No family history on file Level of Service:71240 [place] OFFICE/OUTPATIENT NEW LOW MDM 30-44 MINUTES (25) Reason for Visit and Comments: Pain [136] Normal [facility] US KIDNEYSon 08-27-2022 US KIDNEYS Begin [...] kidneys and bladder was performed by the senior analyst developer. Associate Financial Planner static images are submitted for review. FINDINGS: [...] renal calculi. 3. No hydronephrosis. Normal [facility] Covid-19 PCR ([facility])on SARS-CoV-2 (COVID-19) RNA JAYNE+probe Ql (Unsp spec) Not detected Normal NOT DETECTED [facility] Comment on above: Result Comment: This test is not yet approved or cleared by the [place] FDA. When there are no FDA-approved or cleared tests available, and other criteria are met, FDA can make tests available under an emergency access mechanism called an Emergency Use Authorization (EUA). The EUA for this test is supported by the [place] of Health and Human Service's (HHS's) declaration [...] L IPID, URIC, CMP, T7, TSH #### [facility] [address] [address] [address] Alejandra Crystal INFLUENZA A AND B AGon 08-16 INFLUANEGH SEE BELOW Normal [facility] Comment on above: Result Comment: Nega tive for Flu A protein angiten. Infection due to Flu A cannot be ruled out. Flu A angiten in the sample may be below the detection limit of the test. Performed By: #### O BSCRN #### [facility] [address] [address] [address] Alejandra Crystal [facility] SEE BELOW Normal [facility] Comment on above: Result Comment: Nega tive for Flu B protein antigen. Infection due to Flu B cannot be ruled out. Flu B antigen in the sample may be below the detection limit of the test. Performed By: #### O BSCRN #### [facility] [address] [place] [address] Dr. Alejandra Crystal INFLUENZA A AG Negative Normal NEGATIVE SEE COMMENT [facility] Comment on above: Performed By: #### O BSCRN #### [facility] [address] [address] [address] Alejandra Crystal INFLUENZA B AG Negative Normal NEGATIVE SEE COMMENT [facility] Comment on above: Performed By: #### O BSCRN #### [facility] [address] [place] [address] Dr. Alejandra Crystal MRI SHOULDER LT WO [...] by: CHAY MENDOZA Date: 2022-08-13 15:18 Normal [facility] XR ARTHRO SHOULDER LTon - XR ARTHRO SHOULDER LT EXAMINATION: XR AR [...] CHAY MENDOZA Date: 2022-08-13 15:07 Normal [facility] Covid-19 PCR (CVDTB)on 05-10 SARS-CoV-2 (COVID-19) RNA JAYNE+probe Ql (Unsp spec) Not detected Normal NOT DETECTED [facility] Comment on above: Result Comment: This test is not yet approved or cleared by the [place] FDA. When there are no FDA-approved or cleared tests available, and other criteria are met, FDA can make tests available under an emergency access mechanism called an Emergency Use Authorization (EUA). The EUA for this test is supported by the [place] Worker of Health and Human Service's (HHS's) declaration [...] L IPID, URIC, CMP, T7, TSH #### [facility] [address] [place] [address] Dr. Alejandra Crystal INFLUENZA A AND B [facility] 06-06 [facility] SEE BELOW Normal [facility] Comment on above: Result Comment: Nega tive for Flu A protein angiten. Infection due to Flu A cannot be ruled out. Flu A angiten in the sample may be below the detection limit of the test. Performed By: #### I NFLUAB #### [facility] [address] [place] [address] Dr. Alejandra Crystal [facility] SEE BELOW Normal [facility] Comment on above: Result Comment: Nega tive for Flu B protein antigen. Infection due to Flu B cannot be ruled out. Flu B antigen in the sample may be below the detection limit of the test. Performed By: #### I NFLUAB #### [facility] [address] [place] [address] Dr. Alejandra Crystal INFLUENZA A AG Negative Normal NEGATIVE SEE COMMENT [facility] Comment on above: Performed By: #### I NFLUAB #### [facility] [address] [place] [address] Dr. Alejandra Crystal INFLUENZA B AG Negative Normal NEGATIVE SEE COMMENT [facility] Comment on above: Performed By: #### I NFLUAB #### [facility] [address] [place] [address] Dr. Alejandra Crystal INTERNAL CONTROLS Within Normal Limits Normal Wi thin Normal Limits [facility] Comment on above: Performed By: #### I NFLUAB #### [facility] [address] [address] [address] Alejandra Crystal MRI ABDOMEN WO W [...] CHAY MENDOZA Date: 2022-05-31 09:57 Normal [facility] INSULINon 05-30-2022 Insulin 23.8 uIU/mL Normal 2.6-24.9 [facility] Comment on above: Performed By: #### I NSULIN #### [facility] [address] [place] [address] Dr. Alejandra Crystal CBC AUTO DIFFon 05-29-2022 BASO # 0.0 103/ul Normal 0.0-0.1 [facility] Comment on above: Performed By: #### C BC #### [facility] [address] [place] [address] Dr. Alejandra Crystal Basophils/100 WBC (Bld) 0.6 % Normal 0.2-2.0 [facility] Comment on above: Performed By: #### C BC #### [facility] [address] [place] [address] Dr. Alejandra Crystal EO # 0.1 103/ul Normal 0.0-0.7 [facility] Comment on above: Performed By: #### C BC #### [facility] [address] [place] [address] Dr. Alejandra Crystal Eosinophils/100 WBC (Bld) 1.3 % Normal 0.9-7.0 [facility] Comment on above: Performed By: #### C BC #### [facility] [address] [place] [address] Dr. Alejandra Crystal Erythrocyte distribution width (RBC) [Ratio] 12.5 % Normal 11.0-15.0 [facility] Comment on above: Performed By: #### C BC #### [facility] [address] [place] [address] Dr. Alejandra Crystal Hematocrit (Bld) [Volume fraction] 41.2 % Normal 36.0-48.0 [facility] Comment on above: Performed By: #### C BC #### [facility] [address] [place] [address] Dr. Alejandra Crystal Hemoglobin (Bld) [Mass/Vol] 14.4 g/dL Normal 12.0-16.0 [facility] Comment on above: Performed By: #### C BC #### [facility] [address] [place] [address] Dr. Alejandra Crystal IG # 0.02 10e3/ul Normal 0.00-0.03 [facility] Comment on above: Performed By: #### C BC #### [facility] [address] [place] [address] Dr. Alejandra Crystal IG % 0.3 % Normal 0.0-0.5 [facility] Comment on above: Performed By: #### C BC #### [facility] [address] [place] [address] Dr. Alejandra Crystal LYMPH # 2.1 103/ul Normal 1.2-3.8 [facility] Comment on above: Performed By: #### C BC #### [facility] [address] [place] [address] Dr. Alejandra rCystal Lymphocytes/100 WBC (Bld) 32.5 % Normal 20.5-60.0 [facility] Comment on above: Performed By: #### C BC #### [facility] [address] [place] [address] Dr. Alejandra Crystal MANUAL DIFF REQ NO Normal [facility] Comment on above: Performed By: #### C BC #### [facility] [address] [place] [address] Dr. Alejandra Crystal MCH (RBC) [Entitic mass] 32.1 pg Normal 26.7-34.0 [facility] Comment on above: Performed By: #### C BC #### [facility] [address] [place] [address] Dr. Alejandra Crystal MCHC (RBC) [Mass/Vol] 35.0 g/dL Normal 29.9-35.2 [facility] Comment on above: Performed By: #### C BC #### [facility] [address] [place] [address] Dr. Alejandra Crystal MCV (RBC) [Entitic vol] 91.8 fL Normal 81.0-99.0 [facility] Comment on above: Performed By: #### C BC #### [facility] [address] [place] [address] Dr. Alejandra Crystal MONO # 0.6 103/ul Normal 0.3-0.8 [facility] Comment on above: Performed By: #### C BC #### [facility] [address] [place] [address] Dr. Alejandra Crystal Monocytes/100 WBC (Bld) 8.6 % Normal 1.7-12.0 [facility] Comment on above: Performed By: #### C BC #### [facility] [address] [place] [address] Dr. Alejandra Crystal NEUT # 3.6 103/ul Normal 1.4-6.5 [facility] Comment on above: Performed By: #### C BC #### [facility] [address] [address] [address] Alejandra Crystal Neutrophils/100 WBC (Bld) 56.7 % Normal 43.0-75.0 [facility] Comment on above: Performed By: #### C BC #### [facility] [address] [address] [address] Alejandra Crystal Platelet mean volume (Bld) [Entitic vol] 9.4 fL Critically low 9.5-13.5 [facility] Comment on above: Performed By: #### C BC #### [facility] [address] [place] [address] Dr. Alejandra Crystal PLT 294 103/ul Normal 150-450 [facility] Comment on above: Performed By: #### C BC #### [facility] [address] [place] [address] Dr. Alejandra Crystal RBC 4.49 106/ul Normal 4.20-5.40 [facility] Comment on above: Performed By: #### C BC #### [facility] [address] [place] [address] Dr. Alejandar Crystal WBC 6.4 103/ul Normal 4.0-11.0 [facility] Comment on above: Performed By: #### C BC #### [facility] [address] [place] [address] Dr. Alejandra Crystal FREE THYROXINE INDEX T7on FTI 1.78 Normal 1.30-4.50 [facility] Comment on above: Performed By: #### L IPID, URIC, CMP, T7, TSH #### [facility] [address] [address] [address] Alejandra Crystal T3U 33.0 % Normal 30.0-39.0 [facility] Comment on above: Performed By: #### L IPID, URIC, CMP, T7, TSH #### [facility] [address] [address] [address] Alejandra Crystal T4 [Mass/Vol] 5.40 ug/dL Normal 4.80-13.90 [facility] Comment on above: Performed By: #### L IPID, URIC, CMP, T7, TSH #### [facility] [address] [place] [address] Dr. Alejandra Crystal GLYCOHEMOGLOBIN A1Con 2021 ADA RECOMMENDATION SEE BELOW Normal [facility] Comment on above: Result Comment: ADA RECOMMENDED LIMIT 4.0 - 6.0 ADA THERAPEUTIC TARGET < 7.0 ACTION SUGGESTED > 7.0 Performed By: #### O BSCRN #### [facility] [address] [address] [address] Alejandra Crystal Glucose [Mass/Vol] 94 mg/dL Normal [facility] Comment on above: Performed By: #### O BSCRN #### [facility] [address] [place] [address] Dr. Alejandra Crystal HbA1c (Bld) [Mass fraction] 4.9 % Normal 4.5-6.2 [facility] Comment on above: Performed By: #### O BSCRN #### [facility] [address] [place] [address] Dr. Alejandra Crystal IRONon 05-29-2022 Iron [Mass/Vol] 74.0 ug/dL Normal 50.0-170.0 [facility] Comment on above: Performed By: #### I NFLUAB #### [facility] [address] [place] [address] Dr. Alejandra Crystal LIPID PROFILEon 05-29-2022 CHOL-HDL RATIO NORM SEE BELOW Normal [facility] Comment on above: Result Comment: 3.3 - 4.4 LOW RISK 4.4 - 7.1 AVERAGE RISK 7.1 - 11.0 MODERATE RISK >11.0 HIGH RISK Performed By: #### L IPID, URIC, CMP, T7, TSH #### [facility] [address] [place] [address] Dr. Alejandra Crystal Cholesterol [Mass/Vol] 127 mg/dL Normal <=200 [facility] Comment on above: Performed By: #### L IPID, URIC, CMP, T7, TSH #### [facility] [address] [address] [address] Alejandra Crystal Cholesterol in HDL [Mass/Vol] 33 mg/dL Critically low 40-60 [facility] Comment on above: Performed By: #### L IPID, URIC, CMP, T7, TSH #### [facility] [address] [address] [address] Alejandra Crystal Cholesterol in LDL [Mass/Vol] 60.4 mg/dL Normal [facility] Comment on above: Performed By: #### L IPID, URIC, CMP, T7, TSH #### [facility] [address] [address] [address] Alejandra Crystal Cholesterol.total/Cho lesterol in HDL [Mass ratio] 3.8 {ratio} Normal [facility] Comment on above: Performed By: #### L IPID, URIC, CMP, T7, TSH #### [facility] [address] [address] [address] Alejandra Crystal HDL NORMAL > or = 60 mg/dl - LO W CARDIOVASCULAR RISK <40 mg/dl - HIGH CARDIOVASCULAR RISK Normal [facility] Comment on above: Performed By: #### L IPID, URIC, CMP, T7, TSH #### [facility] [address] [address] [address] Alejandra Crystal LDL CALC NORMAL SEE BELOW Normal [facility] Comment on above: Result Comment: <100 mg/dl OPTIMAL 100 - 129 mg/dl NEAR OR ABOVE OPTIMAL 130 - 159 mg/dl BORDERLINE HIGH 160 - 189 mg/dl HIGH >190 mg/dl VERY HIGH Performed By: #### L IPID, URIC, CMP, T7, TSH #### [facility] [address] [address] [address] Alejandra Crystal Triglyceride [Mass/Vol] 168 mg/dL Critically high <=150 [facility] Comment on above: Performed By: #### L IPID, URIC, CMP, T7, TSH #### [facility] [address] [address] [address] Alejandra Crystal VLDL CALC 33.6 mg/dL Normal [facility] Comment on above: Performed By: #### L IPID, URIC, CMP, T7, TSH #### [facility] [address] [place] [address] Dr. Alejandra Crystal PROF 14(COMP METB)on 022 Albumin [Mass/Vol] 3.8 g/dL Normal 3.4-5.0 [facility] Comment on above: Performed By: #### L IPID, URIC, CMP, T7, TSH #### [facility] [address] [place] [address] Dr. Alejandra Crystal Albumin/Globulin [Mass ratio] 1.2 {ratio} Normal [facility] Comment on above: Performed By: #### L IPID, URIC, CMP, T7, TSH #### [facility] [address] [place] [address] Dr. Alejandra Crystal ALP [Catalytic activity/Vol] 111 U/L Normal 46-116 [facility] Comment on above: Performed By: #### L IPID, URIC, CMP, T7, TSH #### [facility] [address] [place] [address] Dr. Alejandra Crystal ALT [Catalytic activity/Vol] 18 U/L Normal 14-59 [facility] Comment on above: Performed By: #### L IPID, URIC, CMP, T7, TSH #### [facility] [address] [place] [address] Dr. Alejandra Crystal Anion gap [Moles/Vol] 14.9 mmol/L Normal [facility] Comment on above: Performed By: #### L IPID, URIC, CMP, T7, TSH #### [facility] [address] [place] [address] Dr. Alejandra Crystal AST [Catalytic activity/Vol] 11 U/L Critically low 15-37 [facility] Comment on above: Performed By: #### L IPID, URIC, CMP, T7, TSH #### [facility] [address] [place] [address] Dr. Alejandra Crystal Bilirubin [Mass/Vol] 0.3 mg/dL Normal 0.2-1.0 [facility] Comment on above: Performed By: #### L IPID, URIC, CMP, T7, TSH #### [facility] [address] [address] [address] Alejandra Crystal Calcium [Mass/Vol] 8.9 mg/dL Normal 8.5-10.1 [facility] Comment on above: Performed By: #### L IPID, URIC, CMP, T7, TSH #### [facility] [address] [place] [address] Dr. Alejandra Crystal Chloride [Moles/Vol] 107 mmol/L Normal 98-107 [facility] Comment on above: Performed By: #### L IPID, URIC, CMP, T7, TSH #### [facility] [address] [place] [address] Dr. Alejandra Crystal CO2 [Moles/Vol] 22.3 mmol/L Normal 21.0-32.0 [facility] Comment on above: Performed By: #### L IPID, URIC, CMP, T7, TSH #### [facility] [address] [place] [address] Dr. Alejandra Crystal Creatinine [Mass/Vol] 0.82 mg/dL Normal 0.55-1.02 [facility] Comment on above: Performed By: #### L IPID, URIC, CMP, T7, TSH #### [facility] [address] [place] [address] Dr. Alejandra Crystal EGFR-AF LIBYAN >60 Normal >=60 [facility] Comment on above: Performed By: #### L IPID, URIC, CMP, T7, TSH #### [facility] [address] [place] [address] Dr. Alejandra Crystal EGFR-NON AF LIBYAN >60 Normal >=60 [facility] Comment on above: Performed By: #### L IPID, URIC, CMP, T7, TSH #### [facility] [address] [place] [address] Dr. Alejandra Crystal Globulin (S) [Mass/Vol] 3.3 g/dL Normal [facility] Comment on above: Performed By: #### L IPID, URIC, CMP, T7, TSH #### [facility] [address] [place] [address] Dr. Alejandra Crystal Glucose [Mass/Vol] 91 mg/dL Normal 74-106 [facility] Comment on above: Performed By: #### L IPID, URIC, CMP, T7, TSH #### [facility] [address] [place] [address] Dr. Alejandra Crystal Potassium [Moles/Vol] 4.2 mmol/L Normal 3.5-5.1 [facility] Comment on above: Performed By: #### L IPID, URIC, CMP, T7, TSH #### [facility] [address] [place] [address] Dr. Alejandra Crystal Protein [Mass/Vol] 7.1 g/dL Normal 6.4-8.2 [facility] Comment on above: Performed By: #### L IPID, URIC, CMP, T7, TSH #### [facility] [address] [place] [address] Dr. Alejandra Crystal Sodium [Moles/Vol] 140 mmol/L Normal 136-145 [facility] Comment on above: Performed By: #### L IPID, URIC, CMP, T7, TSH #### [facility] [address] [place] [address] Dr. Alejandra Crystal Urea nitrogen [Mass/Vol] 14.0 mg/dL Normal 7.0-18.0 [facility] Comment on above: Performed By: #### L IPID, URIC, CMP, T7, TSH #### [facility] [address] [place] [address] Dr. Alejandra Crystal Urea nitrogen/Creatinine [Mass ratio] 17.1 mg/mg Normal [facility] Comment on above: Performed By: #### L IPID, URIC, CMP, T7, TSH #### [facility] [address] [place] [address] Dr. Alejandra Crystal TSHon 05-29-2022 TSH 0.767 uIU/mL Normal 0.358-3.740 [facility] Comment on above: Performed By: #### L IPID, URIC, CMP, T7, TSH #### [facility] [address] [place] [address] Dr. Alejandra Crystal URIC ACID SERUMon 05-29-2022 Urate [Mass/Vol] 3.4 mg/dL Normal 2.6-6.0 [facility] Comment on above: Performed By: #### L IPID, URIC, CMP, T7, TSH #### [facility] [address] [address] [address] Alejandra Crystal VITAMIN D 25 OHon 05-29-2022 VIT D 25-OH 16.2 ng/mL Normal [facility] Comment on above: Performed By: #### I NFLUAB #### [facility] [address] [address] [address] Alejandra Crystal VIT D RANGES SEE BELOW Normal [facility] Comment on above: Result Comment: <20 ng/mL Vit D deficient 20 - <30 ng/mL Vit D insufficient 30 - 100 ng/mL Vit D sufficient >100 ng/mL Potential Toxicity Performed By: #### I NFLUAB #### [facility] [address] [place] [address] Dr. Alejandra Crystal MRI BRAIN WO W [...] are clear. The flow voids of the point lay [place] of [place] are visualized, implying that the [...] by: TEZ CUBA Date: 2022-05-17 23:20 Normal [facility] US SINGLE QUAD RT UPPERon US [...] by: LETY TAN Date: 2022-05-15 14:53 Normal [facility] COAGULATIONOrdered By: Nacho Mcguire on 04-23-2022 aPTT Coag (PPP) [Time] 35.0 s Normal 25.1 - 36.5 second(s) [facility] Auto Coag INR Coag (PPP) [Relative time] 1.0 {INR} Invalid Interpretation Code [facility] Auto Coag PT Coag (PPP) [Time] 11.7 s Normal 9.4 - 1 2.5 second(s) [facility] Auto Coag HEMATOLOGYOrdered By: SYSTEM SYSTEM on 04-23-2022 Basophils/100 WBC (Bld) 0.4 % Normal 0.0 - 2.0 % [facility] HemeAutoSS Basophils/Leukocytes Auto (Bld) [Pure # fraction] 0.0 E9/L Normal 0.0 - 0.2 E9/L [facility] HemeAutoSS Eosinophils/100 WBC (Bld) 2.2 % Normal [...] Ag Negative (04/23/22 5:22 PM) Normal Negative [facility] Influenzae B Ag Negative (04/23/22 5:22 PM) Normal Negative [facility] CHEMISTRYOrdered By: SYSTEM SYSTEM on [...] Normal >=59mL/min/ 1.73 m2 [facility] Glucose [Mass/Vol] 102 mg/dL Normal 55 - 199 mg/dL [facility] Remisol Potassium [Moles/Vol] 3.6 mmol/L Normal 3.5 - 5.3 mmol/L [facility] Remisol Sodium [Moles/Vol] 135 mmol/L Normal 135 - 145 mmol/L [facility] Remisol Urea nitrogen [Mass/Vol] 12 mg/dL Normal 5 - 21 mg/dL [facility] Remisol Urea nitrogen/Creatinine [Mass ratio] 13 mg/mg Normal 10 - 20 [facility] Remisol CHEMISTRYOrdered By: Lab ROP User on 04-11-2022 Glucose [Mass/Vol] 123 mg/dL High 55 - 99 mg/dL [facility] POC Subsection Comment on above: Result Comment: Madelaine toro RN/ POC Device SN [id number] Invalid Interpretation Code [facility] POC Subsection POC User ID [id number] Invalid Interpretation Code [facility] POC Subsection POC Username CHELE MENDOZA Invalid Interpretation Code [facility] POC Subsection HEMATOLOGYOrdered By: SYSTEM SYSTEM on [...] determined as this extends off the image [id number]. IMPRESSION: Low lying left cerebellar tonsil Original [...] abnormal postcontrast enhancement Limited exam with poor [id number] ratio, this is particularly on the postcontrast images IMPRESSION: Limited exam, no acute abnormality observed Normal [facility] CBC AUTO DIFFon 03-29-2022 BASO # 0.0 103/ul Normal 0.0-0.1 [facility] Comment on above: Performed By: #### C BC #### [facility] [address] [address] [address] Alejandra Crystal Basophils/100 WBC (Bld) 0.4 % Normal 0.2-2.0 [facility] Comment on above: Performed By: #### C BC #### [facility] [address] [place] [address] Dr. Alejandra Crystal EO # 0.0 103/ul Normal 0.0-0.7 [facility] Comment on above: Performed By: #### C BC #### [facility] [address] [place] [address] Dr. Alejandra Crystal Eosinophils/100 WBC (Bld) 0.6 % Critically low 0.9-7.0 [facility] Comment on above: Performed By: #### C BC #### [facility] [address] [place] [address] Dr. Alejandra Crystal Erythrocyte distribution width (RBC) [Ratio] 13.0 % Normal 11.0-15.0 [facility] Comment on above: Performed By: #### C BC #### [facility] [address] [place] [address] Dr. Alejandra Crystal Hematocrit (Bld) [Volume fraction] 42.0 % Normal 36.0-48.0 [facility] Comment on above: Performed By: #### C BC #### [facility] [address] [place] [address] Dr. Alejandra Crystal Hemoglobin (Bld) [Mass/Vol] 14.3 g/dL Normal 12.0-16.0 [facility] Comment on above: Performed By: #### C BC #### [facility] [address] [place] [address] Dr. Alejandra Crystal IG # 0.04 10e3/ul Critically high 0.00-0.03 [facility] Comment on above: Performed By: #### C BC #### [facility] [address] [place] [address] Dr. Alejandra Crystal IG % 0.6 % Critically high 0.0-0.5 [facility] Comment on above: Performed By: #### C BC #### [facility] [address] [place] [address] Dr. Alejandra Crystal LYMPH # 2.5 103/ul Normal 1.2-3.8 [facility] Comment on above: Performed By: #### C BC #### [facility] [address] [place] [address] Dr. Alejandra Crystal Lymphocytes/100 WBC (Bld) 34.9 % Normal 20.5-60.0 [facility] Comment on above: Performed By: #### C BC #### [facility] [address] [place] [address] Dr. Alejandra Crystal MANUAL DIFF REQ NO Normal [facility] Comment on above: Performed By: #### C BC #### [facility] [address] [place] [address] Dr. Alejandra Crystal MCH (RBC) [Entitic mass] 31.4 pg Normal 26.7-34.0 [facility] Comment on above: Performed By: #### C BC #### [facility] [address] [place] [address] Dr. Alejandra Crystal MCHC (RBC) [Mass/Vol] 34.0 g/dL Normal 29.9-35.2 [facility] Comment on above: Performed By: #### C BC #### [facility] [address] [place] [address] Dr. Alejandra Crystal MCV (RBC) [Entitic vol] 92.1 fL Normal 81.0-99.0 [facility] Comment on above: Performed By: #### C BC #### [facility] [address] [place] [address] Dr. Alejandra Crystal MONO # 0.6 103/ul Normal 0.3-0.8 [facility] Comment on above: Performed By: #### C BC #### [facility] [address] [place] [address] Dr. Alejandra Crystal Monocytes/100 WBC (Bld) 8.7 % Normal 1.7-12.0 [facility] Comment on above: Performed By: #### C BC #### [facility] [address] [place] [address] Dr. Alejandra Crystal NEUT # 4.0 103/ul Normal 1.4-6.5 [facility] Comment on above: Performed By: #### C BC #### [facility] [address] [place] [address] Dr. Alejandra Crystal Neutrophils/100 WBC (Bld) 54.8 % Normal 43.0-75.0 [facility] Comment on above: Performed By: #### C BC #### [facility] [address] [place] [address] Dr. Alejandra Crystal Platelet mean volume (Bld) [Entitic vol] 9.8 fL Normal 9.5-13.5 [facility] Comment on above: Performed By: #### C BC #### [facility] [address] [place] [address] Dr. Alejandra Crystal PLT 274 103/ul Normal 150-450 [facility] Comment on above: Performed By: #### C BC #### [facility] [address] [place] [address] Dr. Alejandra Crystal RBC 4.56 106/ul Normal 4.20-5.40 [facility] Comment on above: Performed By: #### C BC #### [facility] [address] [place] [address] Dr. Alejandra Crystal WBC 7.2 103/ul Normal 4.0-11.0 [facility] Comment on above: Performed By: #### C BC #### [facility] [address] [place] [address] Dr. Alejandra Crystal ER URINE PROFILEon 2 Bilirubin Ql (U) Negative Normal NEGATIVE [facility] Comment on above: Performed By: #### O BSCRN #### [facility] [address] [place] [address] Dr. Alejandra Crystal Clarity (U) CLEAR Normal CLEAR [facility] Comment on above: Performed By: #### O BSCRN #### [facility] [address] [address] [address] Alejandra Crystal Color (U) YELLOW Normal YELLOW [facility] Comment on above: Performed By: #### O BSCRN #### [facility] [address] [address] [address] Alejandra Crystal ERUAHD A micrscopic examina tion will be performed if indicated. Normal [facility] Comment on above: Performed By: #### O BSCRN #### [facility] [address] [place] [address] Dr. Alejandra Crystal Glucose Ql (U) Negative Normal NEGATIVE [facility] Comment on above: Performed By: #### O BSCRN #### [facility] [address] [place] [address] Dr. Alejandra Crystal Hemoglobin Ql (U) Negative Normal NEGATIVE [facility] Comment on above: Performed By: #### O BSCRN #### [facility] [address] [place] [address] Dr. Alejandra Crystal Ketones Ql (U) Negative Normal NEGATIVE [facility] Comment on above: Performed By: #### O BSCRN #### [facility] [address] [place] [address] Dr. Alejandra Crystal LEUKOCYTES Negative Normal NEGATIVE [facility] Comment on above: Performed By: #### O BSCRN #### [facility] [address] [place] [address] Dr. Alejandra Crystal Nitrite Ql (U) Negative Normal NEGATIVE [facility] Comment on above: Performed By: #### O BSCRN #### [facility] [address] [place] [address] Dr. Alejandra Crystal pH (U) 6.0 [pH] Normal 5-9 [facility] Comment on above: Performed By: #### O BSCRN #### [facility] [address] [place] [address] Dr. Alejandra Crystal SPEC GRAVITY >=1.030 Abnormal 1.005-<=1.0 25 [facility] Comment on above: Performed By: #### O BSCRN #### [facility] [address] [address] [address] Alejandra Crystal UA PROTEIN Negative Normal NEGATIVE/ TRACE [facility] Comment on above: Performed By: #### O BSCRN #### [facility] [address] [address] [address] Alejandra Crystal UR MICRO IND NOT INDICATED Normal [facility] Comment on above: Performed By: #### O BSCRN #### [facility] [address] [place] [address] Dr. Alejandra Crystal Urobilinogen Qn (U) 0.2 {Ernst'U}/dL Normal 0.2 - 1. 0 [facility] Comment on above: Performed By: #### O BSCRN #### [facility] [address] [place] [address] Dr. Alejandra Crystal MAGNESIUMon 03-29-2022 Magnesium [Mass/Vol] 2.1 mg/dL Normal 1.8-2.4 [facility] Comment on above: Performed By: #### I NFLUAB #### [facility] [address] [place] [address] Dr. Alejandra Crystal PREG HCG QUALon 03-29-2022 , QUAL Negative Normal NEGATIVE [facility] Comment on above: Performed By: #### I NSULIN #### [facility] [address] [place] [address] Dr. Alejandra Crystal PROF 14(COMP METB)on 022 Albumin [Mass/Vol] 3.7 g/dL Normal 3.4-5.0 [facility] Comment on above: Performed By: #### I NFLUAB #### [facility] [address] [place] [address] Dr. Alejandra Crystal Albumin/Globulin [Mass ratio] 1.2 {ratio} Normal [facility] Comment on above: Performed By: #### I NFLUAB #### [facility] [address] [place] [address] Dr. Alejandra Crystal ALP [Catalytic activity/Vol] 120 U/L Critically high 46-116 [facility] Comment on above: Performed By: #### I NFLUAB #### [facility] [address] [address] [address] Alejandra Crystal ALT [Catalytic activity/Vol] 23 U/L Normal 14-59 [facility] Comment on above: Performed By: #### I NFLUAB #### [facility] [address] [address] [address] Alejandra Crystal Anion gap [Moles/Vol] 12.6 mmol/L Normal [facility] Comment on above: Performed By: #### I NFLUAB #### [facility] [address] [address] [address] Alejandra Crystal AST [Catalytic activity/Vol] 14 U/L Critically low 15-37 [facility] Comment on above: Performed By: #### I NFLUAB #### [facility] [address] [place] [address] Dr. Alejandra Crystal Bilirubin [Mass/Vol] 0.4 mg/dL Normal 0.2-1.0 [facility] Comment on above: Performed By: #### I NFLUAB #### [facility] [address] [address] [address] Alejandra Crystal Calcium [Mass/Vol] 9.0 mg/dL Normal 8.5-10.1 [facility] Comment on above: Performed By: #### I NFLUAB #### [facility] [address] [address] [address] Alejandra Crystal Chloride [Moles/Vol] 109 mmol/L Critically high 98-107 [facility] Comment on above: Performed By: #### I NFLUAB #### [facility] [address] [address] [address] Alejandra Crystal CO2 [Moles/Vol] 21.2 mmol/L Normal 21.0-32.0 [facility] Comment on above: Performed By: #### I NFLUAB #### [facility] [address] [address] [address] Alejandra Crystal Creatinine [Mass/Vol] 0.93 mg/dL Normal 0.55-1.02 [facility] Comment on above: Performed By: #### I NFLUAB #### [facility] [address] [address] [address] Alejandra Crystal EGFR-AF LIBYAN Normal >=60 [facility] Comment on above: Performed By: #### I NFLUAB #### [facility] [address] [address] [address] Alejandra Crystal EGFR-NON AF LIBYAN Normal >=60 [facility] Comment on above: Performed By: #### I NFLUAB #### [facility] [address] [address] [address] Alejandra Crystal Globulin (S) [Mass/Vol] 3.2 g/dL Normal [facility] Comment on above: Performed By: #### I NFLUAB #### [facility] [address] [address] [address] Alejandra Crystal Glucose [Mass/Vol] 100 mg/dL Normal 74-106 [facility] Comment on above: Performed By: #### I NFLUAB #### [facility] [address] [address] [address] Alejandra Crystal Potassium [Moles/Vol] 2.8 mmol/L Critically low 3.5-5.1 [facility] Comment on above: Performed By: #### I NFLUAB #### [facility] [address] [address] [address] Alejandra Crystal Protein [Mass/Vol] 6.9 g/dL Normal 6.4-8.2 [facility] Comment on above: Performed By: #### I NFLUAB #### [facility] [address] [address] [address] Alejandra Crystal Sodium [Moles/Vol] 140 mmol/L Normal 136-145 [facility] Comment on above: Performed By: #### I NFLUAB #### [facility] [address] [address] [address] Alejandra Crystal Urea nitrogen [Mass/Vol] 16.0 mg/dL Normal 7.0-18.0 [facility] Comment on above: Performed By: #### I NFLUAB #### [facility] [address] [address] [address] Alejandra Crystal Urea nitrogen/Creatinine [Mass ratio] 17.2 mg/mg Normal [facility] Comment on above: Performed By: #### I NFLUAB #### [facility] [address] [address] [address] Alejandra Crystal TROPONIN, HIGH SENSITIVITYon 03-29-2022 HSTROP 5.2 pg/mL Normal 4.0-51.3 [facility] Comment on above: Result Comment: CUT- OFF POINTS HAVE BEEN ESTABLISHED BASED ON THE FOURTH UNIVERSAL DEFINITIONS OF MYOCARDIAL INFARCTION. THE UPPER REFERENCE LIMIT (URL) OF TROPONIN, DEFINED THE 99TH PERCENTILE OF cTnI DISTRIBUTION IN A REFERENCE POPULATION, HAS BEEN CONFIRMED THE DECISION THRESHOLD FOR CT DIAGNOSIS. Performed By: #### I NFLUAB #### [facility] [address] [address] [address] Alejandra Crystal Covid-19 PCR (CVDTBH)on 03-08 SARS-CoV-2 (COVID-19) RNA JAYNE+probe Ql (Unsp spec) Not detected Normal NOT DETECTED [facility] Comment on above: Result Comment: This test is not yet approved or cleared by the [place] FDA. When there are no FDA-approved or cleared tests available, and other criteria are met, FDA can make tests available under an emergency access mechanism called an Emergency Use Authorization (EUA). The EUA for this test is supported by the [place] of Health and Human Service's (HHS's) declaration [...] L IPID, URIC, CMP, T7, TSH #### [facility] [address] [address] [address] Alejandra Crystal MRI BRAIN WO W CONon 022 MRI BRAIN W CON EXAMINATION: MRI BRA IN CON HISTORY: Syncope and collapse COMPARISON: No [...] CHAY MENDOZA Date: 2022-03-06 07:26 Normal [facility] CHEMISTRYOrdered By: SYSTEM SYSTEM on 02-21-2022 T4 [Mass/Vol] 5.1 ug/dL Normal 4.6 - 9.1 mcg/dL [facility] Remisol TSH Qn 0.20 m[IU]/L Low 0.34 - 5.60 mcIU/mL [facility] Remisol Covid-19 PCR (CVDTB)on 01-06 SARS-CoV-2 (COVID-19) RNA JAYNE+probe Ql (Unsp spec) Not detected Normal NOT DETECTED [facility] Comment on above: Result Comment: When [...] for this test is supported by the [place] Worker of Health and Human Service's declaration that [...] used). Performed By: #### I NFLUAB #### [facility] [address] [place] [address] Dr. Alejandra Crystal CBC AUTO DIFFon 01-01-2022 BASO # 0.0 103/ul Normal 0.0-0.1 [facility] Comment on above: Performed By: #### O BSCRN #### [facility] [address] [place] [address] Dr. Alejandra Crystal Basophils/100 WBC (Bld) 0.7 % Normal 0.2-2.0 [facility] Comment on above: Performed By: #### O BSCRN #### [facility] [address] [place] [address] Dr. Alejandra Crystal EO # 0.1 103/ul Normal 0.0-0.7 [facility] Comment on above: Performed By: #### O BSCRN #### [facility] [address] [place] [address] Dr. Alejandra Crystal Eosinophils/100 WBC (Bld) 1.1 % Normal 0.9-7.0 [facility] Comment on above: Performed By: #### O BSCRN #### [facility] [address] [place] [address] Dr. Alejandra Crystal Erythrocyte distribution width (RBC) [Ratio] 13.1 % Normal 11.0-15.0 [facility] Comment on above: Performed By: #### O BSCRN #### [facility] [address] [place] [address] Dr. Alejandra Crystal Hematocrit (Bld) [Volume fraction] 43.4 % Normal 36.0-48.0 [facility] Comment on above: Performed By: #### O BSCRN #### [facility] [address] [place] [address] Dr. Alejandra Crystal Hemoglobin (Bld) [Mass/Vol] 14.5 g/dL Normal 12.0-16.0 [facility] Comment on above: Performed By: #### O BSCRN #### [facility] [address] [place] [address] Dr. Alejandra Crystal IG # 0.02 10e3/ul Normal 0.00-0.03 [facility] Comment on above: Performed By: #### O BSCRN #### [facility] [address] [place] [address] Dr. Alejandra Crystal IG % 0.4 % Normal 0.0-0.5 [facility] Comment on above: Performed By: #### O BSCRN #### [facility] [address] [place] [address] Dr. Alejandra Crystal LYMPH # 1.9 103/ul Normal 1.2-3.8 [facility] Comment on above: Performed By: #### O BSCRN #### [facility] [address] [place] [address] Dr. Alejandra Crystal Lymphocytes/100 WBC (Bld) 34.1 % Normal 20.5-60.0 [facility] Comment on above: Performed By: #### O BSCRN #### [facility] [address] [place] [address] Dr. Alejandra Crystal MANUAL DIFF REQ NO Normal [facility] Comment on above: Performed By: #### O BSCRN #### [facility] [address] [place] [address] Dr. Alejandra Crystal MCH (RBC) [Entitic mass] 30.9 pg Normal 26.7-34.0 [facility] Comment on above: Performed By: #### O BSCRN #### [facility] [address] [place] [address] Dr. Alejandra Crystal MCHC (RBC) [Mass/Vol] 33.4 g/dL Normal 29.9-35.2 [facility] Comment on above: Performed By: #### O BSCRN #### [facility] [address] [place] [address] Dr. Alejandra Crystal MCV (RBC) [Entitic vol] 92.5 fL Normal 81.0-99.0 [facility] Comment on above: Performed By: #### O BSCRN #### [facility] [address] [place] [address] Dr. Alejandra Crystal MONO # 0.4 103/ul Normal 0.3-0.8 [facility] Comment on above: Performed By: #### O BSCRN #### [facility] [address] [place] [address] Dr. Alejandra Crystal Monocytes/100 WBC (Bld) 7.7 % Normal 1.7-12.0 [facility] Comment on above: Performed By: #### O BSCRN #### [facility] [address] [place] [address] Dr. Alejandra Crystal NEUT # 3.0 103/ul Normal 1.4-6.5 [facility] Comment on above: Performed By: #### O BSCRN #### [facility] [address] [place] [address] Dr. Alejandra Crystal Neutrophils/100 WBC (Bld) 56.0 % Normal 43.0-75.0 [facility] Comment on above: Performed By: #### O BSCRN #### [facility] [address] [place] [address] Dr. Alejandra Crystal Platelet mean volume (Bld) [Entitic vol] 9.4 fL Critically low 9.5-13.5 [facility] Comment on above: Performed By: #### O BSCRN #### [facility] [address] [place] [address] Dr. Alejandra Crystal PLT 313 103/ul Normal 150-450 [facility] Comment on above: Performed By: #### O BSCRN #### [facility] [address] [place] [address] Dr. Alejandra Crystal RBC 4.69 106/ul Normal 4.20-5.40 [facility] Comment on above: Performed By: #### O BSCRN #### [facility] [address] [place] [address] Dr. Alejandra Crystal WBC 5.4 103/ul Normal 4.0-11.0 [facility] Comment on above: Performed By: #### O BSCRN #### [facility] [address] [place] [address] Dr. Alejandra Crystal FREE T3on 01-01-2022 FREE T3 4.72 pg/mlL Critically high 2.18-3.98 [facility] Comment on above: Performed By: #### L IPID, URIC, CMP, T7, TSH #### [facility] [address] [place] [address] Dr. Alejandra Crystal FREE THYROXINE INDEX T7on FTI 1.25 Critically low 1.30-4.50 [facility] Comment on above: Performed By: #### L IPID, URIC, CMP, T7, TSH #### [facility] [address] [place] [address] Dr. Alejandra Crystal T3U 32.0 % Normal 30.0-39.0 [facility] Comment on above: Performed By: #### L IPID, URIC, CMP, T7, TSH #### [facility] [address] [place] [address] Dr. Alejandra Crystal T4 [Mass/Vol] 3.90 ug/dL Critically low 4.80-13.90 [facility] Comment on above: Performed By: #### L IPID, URIC, CMP, T7, TSH #### [facility] [address] [place] [address] Dr. Alejandra Crystal PROF 14(COMP METB)on 022 Albumin [Mass/Vol] 3.8 g/dL Normal 3.4-5.0 [facility] Comment on above: Performed By: #### L IPID, URIC, CMP, T7, TSH #### [facility] [address] [place] [address] Dr. Alejandra Crystal Albumin/Globulin [Mass ratio] 11.4 {ratio} Normal [facility] Comment on above: Performed By: #### L IPID, URIC, CMP, T7, TSH #### [facility] [address] [place] [address] Dr. Alejandra Crystal ALP [Catalytic activity/Vol] 123 U/L Critically high 46-116 [facility] Comment on above: Performed By: #### L IPID, URIC, CMP, T7, TSH #### [facility] [address] [place] [address] Dr. Alejandra Crystal ALT [Catalytic activity/Vol] 27 U/L Normal 14-59 [facility] Comment on above: Performed By: #### L IPID, URIC, CMP, T7, TSH #### [facility] [address] [place] [address] Dr. Alejandra Crystal Anion gap [Moles/Vol] 11.5 mmol/L Normal [facility] Comment on above: Performed By: #### L IPID, URIC, CMP, T7, TSH #### [facility] [address] [place] [address] Dr. Alejandra Crystal AST [Catalytic activity/Vol] 16 U/L Normal 15-37 [facility] Comment on above: Performed By: #### L IPID, URIC, CMP, T7, TSH #### [facility] [address] [place] [address] Dr. Alejandra Crystal Bilirubin [Mass/Vol] 0.6 mg/dL Normal 0.2-1.0 [facility] Comment on above: Performed By: #### L IPID, URIC, CMP, T7, TSH #### [facility] [address] [place] [address] Dr. Alejandra Crystal Calcium [Mass/Vol] 8.8 mg/dL Normal 8.5-10.1 [facility] Comment on above: Performed By: #### L IPID, URIC, CMP, T7, TSH #### [facility] [address] [address] [address] Alejandra Crystal Chloride [Moles/Vol] 110 mmol/L Critically high 98-107 [facility] Comment on above: Performed By: #### L IPID, URIC, CMP, T7, TSH #### [facility] [address] [place] [address] Dr. Alejandra Crystal CO2 [Moles/Vol] 23.9 mmol/L Normal 21.0-32.0 [facility] Comment on above: Performed By: #### L IPID, URIC, CMP, T7, TSH #### [facility] [address] [place] [address] Dr. Alejandar Crystal Creatinine [Mass/Vol] 0.90 mg/dL Normal 0.55-1.02 [facility] Comment on above: Performed By: #### L IPID, URIC, CMP, T7, TSH #### [facility] [address] [place] [address] Dr. Alejandra Crystal EGFR-AF LIBYAN >=60 Normal >=60 [facility] Comment on above: Performed By: #### L IPID, URIC, CMP, T7, TSH #### [facility] [address] [place] [address] Dr. Alejandra Crystal EGFR-NON AF LIBYAN >=60 Normal >=60 [facility] Comment on above: Performed By: #### L IPID, URIC, CMP, T7, TSH #### [facility] [address] [place] [address] Dr. Alejandra Crystal Globulin (S) [Mass/Vol] 3.5 g/dL Normal [facility] Comment on above: Performed By: #### L IPID, URIC, CMP, T7, TSH #### [facility] [address] [place] [address] Dr. Alejandra Crystal Glucose [Mass/Vol] 107 mg/dL Critically high 74-106 [facility] Comment on above: Performed By: #### L IPID, URIC, CMP, T7, TSH #### [facility] [address] [place] [address] Dr. Alejandra Crystal Potassium [Moles/Vol] 3.3 mmol/L Critically low 3.5-5.1 [facility] Comment on above: Performed By: #### L IPID, URIC, CMP, T7, TSH #### [facility] [address] [place] [address] Dr. Alejandra Crystal Protein [Mass/Vol] 7.3 g/dL Normal 6.4-8.2 [facility] Comment on above: Performed By: #### L IPID, URIC, CMP, T7, TSH #### [facility] [address] [place] [address] Dr. Alejandra Crystal Sodium [Moles/Vol] 142 mmol/L Normal 136-145 [facility] Comment on above: Performed By: #### L IPID, URIC, CMP, T7, TSH #### [facility] [address] [place] [address] Dr. Alejandra Crystal Urea nitrogen [Mass/Vol] 13.0 mg/dL Normal 7.0-18.0 [facility] Comment on above: Performed By: #### L IPID, URIC, CMP, T7, TSH #### [facility] [address] [place] [address] Dr. Alejandra Crystal Urea nitrogen/Creatinine [Mass ratio] 14.4 mg/mg Normal [facility] Comment on above: Performed By: #### L IPID, URIC, CMP, T7, TSH #### [facility] [address] [place] [address] Dr. Alejandra Crystal TSHon 01-01-2022 TSH 0.177 uIU/mL Critically low 0.358-3.740 [facility] Comment on above: Performed By: #### L IPID, URIC, CMP, T7, TSH #### [facility] [address] [place] [address] Dr. Alejandra Crystal T4 LABCORPon 12-02-2021 T4 [Mass/Vol] 4.8 ug/dL Normal 4.5-12.0 [facility] Comment on above: Performed By: #### I NFLUAB #### [facility] [address] [place] [address] Dr. Alejandra RITTER BLD IMMUNO SCREENon 11-06 OCCULT BLOOD Negative Normal NEGATIVE [facility] Comment on above: Performed By: #### O BSCRN #### [facility] [address] [place] [address] Dr. Alejandra Crystal CBC AUTO DIFFon 11-30-2021 BASO # 0.1 103/ul Normal 0.0-0.1 [facility] Comment on above: Performed By: #### I NFLUAB #### [facility] [address] [place] [address] Dr. Alejandra Crystal Basophils/100 WBC (Bld) 0.8 % Normal 0.2-2.0 [facility] Comment on above: Performed By: #### I NFLUAB #### [facility] [address] [place] [address] Dr. Alejandra Crystal EO # 0.0 103/ul Normal 0.0-0.7 [facility] Comment on above: Performed By: #### I NFLUAB #### [facility] [address] [place] [address] Dr. Alejandra Crystal Eosinophils/100 WBC (Bld) 0.3 % Critically low 0.9-7.0 [facility] Comment on above: Performed By: #### I NFLUAB #### [facility] [address] [place] [address] Dr. Alejandra Crystal Erythrocyte distribution width (RBC) [Ratio] 12.8 % Normal 11.0-15.0 [facility] Comment on above: Performed By: #### I NFLUAB #### [facility] [address] [place] [address] Dr. Alejandra Crystal Hematocrit (Bld) [Volume fraction] 48.6 % Critically high 36.0-48.0 [facility] Comment on above: Performed By: #### I NFLUAB #### [facility] [address] [place] [address] Dr. Alejandra Crystal Hemoglobin (Bld) [Mass/Vol] 16.0 g/dL Normal 12.0-16.0 [facility] Comment on above: Performed By: #### I NFLUAB #### [facility] [address] [place] [address] Dr. Alejandra Crystal IG # 0.38 10e3/ul Critically high 0.00-0.03 [facility] Comment on above: Performed By: #### I NFLUAB #### [facility] [address]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 Diastolic blood pressure 49 mm[Hg] Boy Hai [facility] 01-16-2022 14:58-0400 Heart rate 71 /min Boy Hai [facility] 01-16-2022 14:58-0400 Respiratory rate 12 /min Boy Hai [facility] 01-16-2022 14:58-0400 SaO2% (BldA) [Mass fraction] 97 % Boy Hai [facility] 01-16-2022 14:58-0400 Systolic blood pressure 117 mm[Hg] Boy Hai [facility] 01-16-2022 14:41-0400 Body temperature 98.6 [degF] Boy Hai [facility] 01-16-2022 14:41-0400 Diastolic blood pressure 57 mm[Hg] Boy Hai [facility] 01-16-2022 14:41-0400 Heart rate 73 /min Boy Hai [facility] 01-16-2022 14:41-0400 Mean blood pressure 74 mm[Hg] Boy Hai [facility] 01-16-2022 14:41-0400 Respiratory rate 12 /min Boy Hai [facility] 01-16-2022 14:41-0400 SaO2% (BldA) [Mass fraction] 98 % Boy Hai [facility] 01-16-2022 14:41-0400 Systolic blood pressure 109 mm[Hg] Boy Hai [facility] 11-17-2021 08:50-0400 Diastolic blood pressure 76 mm[Hg] Ade Hennessy [facility] 11-17-2021 08:50-0400 Heart rate 62 /min Adeanca Hennessy [facility] 11-17-2021 08:50-0400 Mean blood pressure 96 mm[Hg] Adeanca Hennessy [facility] 11-17-2021 08:50-0400 Respiratory rate 18 /min Ade Hennessy [facility] 11-17-2021 08:50-0400 Systolic blood pressure 135 mm[Hg] Adeanca Hennessy [facility] 10-30-2021 07:57-0400 Diastolic blood pressure 77 mm[Hg] Boy Hai [facility] 10-30-2021 07:57-0400 Heart rate 59 /min Boy Hai [facility] 10-30-2021 07:57-0400 Mean blood pressure 89 mm[Hg] Boy Hai [facility] 10-30-2021 07:57-0400 SaO2% (BldA) [Mass fraction] 98 % Boy Hai [facility] 10-30-2021 07:57-0400 Systolic blood pressure 113 mm[Hg] Boy Hai [facility] 10-30-2021 07:49-0400 Diastolic blood pressure 72 mm[Hg] Boy Hai [facility] 10-30-2021 07:49-0400 Heart rate 61 /min Boy Hai [facility] 10-30-2021 07:49-0400 Respiratory rate 16 /min Boy Hai [facility] 10-30-2021 07:49-0400 SaO2% (BldA) [Mass fraction] 97 % Boy Hai [facility] 10-30-2021 07:49-0400 Systolic blood pressure 103 mm[Hg] Boy Hai [facility] 10-30-2021 07:18-0400 Body temperature 98.24 [degF] Boy Hai [facility] 10-30-2021 07:18-0400 Diastolic blood pressure 64 mm[Hg] Boy Hai [facility] 10-30-2021 07:18-0400 Heart rate 72 /min Boy Hai [facility] 10-30-2021 07:18-0400 Mean blood pressure 74 mm[Hg] Boy Hai [facility] 10-30-2021 07:18-0400 Respiratory rate 14 /min Boy Hai [facility] 10-30-2021 07:18-0400 SaO2% (BldA) [Mass fraction] 97 % Boy Hai [facility] 10-30-2021 07:18-0400 Systolic blood pressure 95 mm[Hg] Boy Valles [facility] Encounters Encounter Date Encounter Type Care Provider Facility Start: 09-28-2023 End: 09-28-2023 Emergency department patient visit Dandy Ashton Facility:[facility] Start: 09-28-2023 End: 09-28-2023 Emergency department patient visit Dandy Ashton [facility] Start: 09-17-2023 End: 09-18-2023 Emergency department patient visit Dandy Ashton Facility:[facility] Start: 09-17-2023 End: 09-17-2023 Emergency department patient visit Dandy Ashton [facility] Start: 07-29-2023 ambulatory Ade Hennessy Facilit y:[facility] Start: 07-15-2023 ambulatory Devon Sanders acility:[facility] Start: 06-25-2023 End: 07-03-2023 Pre-admission assessment Ade Hennessy [facility] Start: 06-10-2023 End: 06-11-2023 ambulatory Ade Hennessy Facility:[facility] Start: 06-10-2023 End: 06-10-2023 Pain Management Ade Hennessy [facility] Start: 05-08-2023 End: 05-08-2023 ambulatory STALIN REYES Facility:[facility] Start: 05-08-2023 End: 05-08-2023 Patient encounter procedure Stalin Reyes MD Work Phone: Neurology Comment on above: Radiculopathy, lumba r region (Primary Dx); Intractable chronic migraine without aura and without status migrainosus; Essential tremor; Depression, unspecified depression type; Anxiety Start: 05-07-2023 End: 05-08-2023 ambulatory Boy Valles Facility:[facility] Start: 05-07-2023 End: 05-07-2023 Pain Management Boy Ramanner [facility] Start: 04-19-2023 End: 04-20-2023 ambulatory Pepe Alcazar Facility:[facility] Start: 04-19-2023 End: 04-19-2023 Pain Management Ade Minoo [facility] Start: 03-14-2023 End: 03-15-2023 Emergency department patient visit Chandni Hart Facility:[facility] Start: 03-14-2023 End: 03-15-2023 Emergency department patient visit [facility] Sidra Adammitchel [facility] Start: 02-05-2023 End: 02-05-2023 ambulatory NATHANAEL RYAN Facility:[facility] Start: 02-05-2023 End: 02-05-2023 Patient encounter procedure Nathanael Ryan MD Work Phone: [facility] Comment on above: Hemangioma of bone ( Primary Dx); Brain tumor (HCC) Start: 01-24-2023 End: 01-24-2023 ambulatory Ade Valderrama RT(R) Radiology Comment on above: Radiology MRI Start: 01-24-2023 Patient encounter procedure Ade Valderrama RT(R) [facility] Start: 12-18-2022 Telephone encounter Edilberto delcaruz RN Work Phone: [facility] Comment on above: Insurance Authorizat ion (Emgality 120MG/ML auto-injectors (migraine)/) Start: 12-17-2022 End: 12-17-2022 ambulatory SHCAMRYNI SERGIO Facility:[facility] Start: 11-20-2022 End: 11-21-2022 ambulatory Yamile Muller Facility: [place] Start: 10-13-2022 End: 10-13-2022 ambulatory EDUARDO [facility] Start: 10-01-2022 End: 10-02-2022 ambulatory Ade Hennessy Facility:[facility] Start: 10-01-2022 End: 10-01-2022 Pain Management Ade Hennessy [facility] Start: 09-20-2022 End: 09-20-2022 Patient encounter procedure Pepe Alcazar [facility] Start: 08-28-2022 ambulatory EDUARDO [facility] Start: 08-25-2022 End: 08-26-[address] PEPE ALCAZAR . Facility:[facility] Start: 08-16-2022 End: 08-16-[address] PEPE ALCAZAR . Facility:[facility] Start: 08-14-2022 End: 08-14-2022 Pain Management Boy Valles [facility] Start: 08-13-2022 End: 08-13-[address] PEPE ALCAZAR . Facility:[facility] Start: 07-17-2022 End: 08-01-2022 Pre-admission assessment Boy Valles [facility] Start: 07-03-2022 End: 07-03-2022 Pain Management Boy Valles [facility] Start: 06-06-2022 End: 06-06-[address] PEPE ALCAZAR . Facility:[facility] Start: 06-04-2022 Encounter for genera l adult medical examination without abnormal findings DR PEPE ALCAZAR . [facility] Start: 05-29-2022 End: 05-30-[address] PEPE ALCAZAR . Facility:[facility] Start: 05-29-2022 End: 05-30-2022 Encounter for general adult medical examination without abnormal findings DR PEPE ALCAZAR . Facility:[facility] Start: 05-18-2022 End: 05-18-2022 Pain Management Ade Hennessy [facility] Start: 05-17-2022 End: 05-18-[address] PEPE ALCAZAR . Facility:[facility] Start: 05-15-2022 End: 05-16-[address] PEPE ALCAZAR . Facility:[facility] Start: 04-23-2022 End: 04-23-2022 Patient encounter procedure MIRANDA Garcia EMORY [facility] Start: 04-11-2022 End: 04-11-2022 Emergency department patient visit Jim Ramirez [facility] Start: 04-09-2022 End: 04-09-2022 Pain Management Ade Hennessy [facility] Start: 04-09-2022 End: 04-10-[address] PEPE ALCAZAR . Facility:[facility] Start: 03-29-2022 End: 03-29-2022 ambulatory MARANDA BARRERA . Facility:[facility] Start: 03-19-2022 End: 03-19-[address] PEPE ALCAZAR . Facility:[facility] Start: 03-05-2022 End: 03-06-[address] PEPE ALCAZAR . Facility:[facility] Start: 02-21-2022 End: 02-21-2022 Patient encounter procedure ADE AMARO [facility] Start: 02-09-2022 End: 02-09-2022 Pain Management Ade Hennessy [facility] Start: 01-29-2022 End: 01-29-[address] PEPE ALCAZAR . Facility:[facility] Start: 01-16-2022 End: 01-16-2022 Pain Management Boy Valles [facility] Start: 01-05-[address] PEPE ALCAZAR . [...] Start: 11-17-2021 End: 11-17-2021 Pain Management Ade REM ENTERPRISE [facility] Start: 10-30-2021 End: 10-30-2021 Pain Management Boy Valles [facility] Start: 10-07-2017 End: 10-08-2017 Ambulatory REFERRED SELF Facility:[facility] Procedures Date Procedure Procedure Detail Performing Clinician Start: 05-07-2023 Injection of nerve r oot of lumbar spine using fluoroscopic guidance KOTURA Comment on above: L4-L5-50% relief for 1 week Start: 10-13-2022 Follow-up visit Follow-up EDUARDO HYDE Start: 08-14-2022 Injection of nerve r oot of lumbar spine using fluoroscopic guidance Pepe Alcazar Comment on above: 50% relief Start: 01-16-2022 Injection of sacroil iac joint KOTURA Comment on above: left SIJI 45% relief . left SIJI 45% relief . Start: 10-30-2021 Injection of nerve r oot of lumbar spine using fluoroscopic guidance KOTURA Comment on above: 701% relief at least [...] DTaP,Tdap,Td Vaccine (2 - Td or Tdap) [facility] Start: 03-08-2023 Covid-19 Vaccine () Covid-19 Vaccine () [facility] Start: 03-08-2023 Influenza vaccination [facility] Start: 2019 Mammography [facility] Start: 2009 HPV TESTING HPV TESTING [facility] Start: 2000 PAP TESTING PAP TESTING [facility] Start: 1998 SHINGRIX VACCINE (1 of 2) SHINGRIX V ACCINE (1 of 2) [facility] Start: 1998 Urine microalbumin profile DTAP,TDAP,TD (1 - Tdap) [facility] Start: 1997 HEPATITIS C SCREENING HEPATITIS C SC MICHAEL [facility] Start: 1997 HIV SCREENING HIV SCREENING [facility] Start: 1985 PNEUMOCOCCAL (1 - PCV) PNEUMOCOCCAL (1 - PCV) [facility] Start: 1985 Pneumococcal vaccination Pneum ococcal Vaccine (1 - PCV) [facility] Start: 1979 HEPATITIS B (1 of 3 - 3-dose series) HEPATITIS B (1 of 3 - 3-dose series) [facility] Start: 1979 Hepatitis B Vaccine (1 of 3 - 3-dose series) Hepatitis B Vaccine (1 of 3 - 3-dose series) [facility] Immunizations Immunization Date Immunization Notes Care Provider Fa cility 09-12-2022 influenza virus vacc ine, unspecified formulation [facility] 09-12-2022 SARS-CoV-2 (COVID-19 ) [id number] [facility] 09-12-2022 tetanus toxoid, redu leticia diphtheria toxoid, and acellular pertussis vaccine, adsorbed [facility] 01-24-2022 SARS-CoV-2 (COVID-19 ) mRNA-1273 vaccine [facility] 11-16-2020 SARS-CoV-2 (COVID-19 ) mRNA-1273 vaccine [facility] 10-19-2020 SARS-CoV-2 (COVID-19 ) mRNA-1273 vaccine [facility] 05-04-2020 influenza virus vacc ine, unspecified formulation [facility] 08-24-2019 influenza virus vacc ine, unspecified formulation [facility] 03-26-2017 influenza virus vacc ine, unspecified formulation [facility] Payers Date Payer Category Payer Self-pay 2022 Medicaid [facility] [id number] 2022-Present [phone] [address] [place] [address] Medicaid [id number] 1979 Unknown [id number] 2..840.1.333263.3.579.2.593 1979 Unknown [id number] 2..840.1.488492.3.579.2.593 1979 Unknown [id number] 2..840.1.617628.3.579.2.593 1979 Unknown [id number] 2.16.840.1.512624.3.579.2.593 1979 Unknown [id number] 2.16.840.1.000333.3.579.2.593 1979 Unknown [id number] 2.16.840.1.097474.3.579.2.593 1979 Unknown [id number] 2.16.840.1.190134.3.579.2.593 1979 Unknown [id number] 2.16.840.1.929543.3.579.2.593 1979 Unknown [id number] 2.16.840.1.668193.3.579.2.593 1979 Unknown [id number] 2.16.840.1.788239.3.579.2.593 1979 Unknown [id number] 2.16.840.1.710425.3.579.2.593 1979 Unknown [id number] 2.16.840.1.477364.3.579.2.593 1979 Unknown [id number] 2.16.840.1.045106.3.579.2.593 1979 Unknown [id number] 2.16.840.1.729489.3.579.2.593 1979 Unknown [id number] 2.16.840.1.505003.3.579.2.593 1979 Unknown [id number] 2.16.840.1.777462.3.579.2.593 1979 Unknown [id number] 2.16.840.1.792429.3.579.2.593 1979 Unknown [id number] 2.16.840.1.494837.3.579.2.593 1979 Unknown [id number] 2.16.840.1.345053.3.579.2.593 1979 Unknown [id number] 2.16.840.1.836491.3.579.2.727 1979 Unknown [id number] 2.16.840.1.777928.3.579.2.727 1979 Unknown [id number] 2.16.840.1.870604.3.579.2.727 1979 Unknown [id number] 2.16.840.1.362347.3.579.2.727 1979 Unknown [id number] 2.16.840.1.746145.3.579.2.727 1979 Unknown [id number] 2.16.840.1.802606.3.579.2.727 1979 Unknown [id number] 2.16.840.1.036056.3.579.2.727 1979 Unknown [id number] 2.16.840.1.447656.3.579.2.727 1979 Unknown [id number] 2.16.840.1.679529.3.579.2.727 1959 Medicaid [id number] 1959 Unknown [id number] 1959 Unknown [id number] 1959 Unknown [id number] Unknown [id number] 2.16.840.1.959297.3.579.2.531 Social History Date Type Detail Facility Start: 07-04-2020 End: 11-20-2022 Tobacco smoking status Never smoked tobacco (finding) [facility] Comment on above: Deniessd Start: 12-17-2022 End: 02-05-2023 Sex Assigned At Female [facility] Start: 05-12-2015 Tobacco use and exposure Smokeless tobacco non-user [facility] Work Phone: Start: 12-17-2022 End: 05-08-2023 Alcohol intake Current drinker of alcohol (finding) [facility] Start: 05-12-2015 Alcohol Comment occassional [facility] Start: 1980 Sex Assigned At Not on file [facility] Start: 12-17-2022 End: 02-05-2023 History of Social function [facility] Adult Depression Screening Assessment 5 [facility] Functional Status Date Assessment Result Facility 09-28-2023 Functional Status N/A [facility] 09-17-2023 Functional Status N/A [facility] 06-10-2023 Functional Status N/A [facility] 05-07-2023 Functional Status N/A [facility] 04-19-2023 Functional Status N/A [facility] 03-14-2023 Functional Status N/A [facility] 10-01-2022 Functional Status N/A [facility] 08-14-2022 Functional Status N/A [facility] 05-18-2022 Functional Status N/A [facility] 04-11-2022 Functional Status N/A [facility] 04-09-2022 Functional Status N/A [facility] 02-09-2022 Functional Status N/A [facility] 01-16-2022 Functional Status N/A [facility] Clinical Notes 11-17-2021 to 09-28-2023 Note Date & Type Note Facility 09-28-2023 Evaluation + Plan note Extrac brandon from: Title:ED Note Author:Dandy Ashton DO Date :09/28/23 Cough (R05.9: Cough, unspeci fied) Orders: brompheniramine/dextromethorphan/PSE, 5 mL, Oral, QID for cough and congestion, 200 mL, Refill(s) 0, [id number], 160, cm, 09/28/23 1:17:00 EDT, Height/Length Dosing, 97.9, kg, 09/28/23 1:17:00 EDT, Weight Dosing dexamethasone, 10 mg = 2.5 mL, Injection, Oral, Once, Stop date 09/28/23 2:17:00 EDT, STAT, Start date 09/28/23 2:17:00 EDT, 09/28/23 2:17:00 EDT Influenza A&B Ag Rapid COVID Antigen ([facility]) XR Chest 2 Views [facility]2024 Hospital Discharge instructions Patient Education 09/28/2023 02:27:06 Cough, Adult Cough, Adult Coughing is a reflex that clears your throat and your airways (respiratory system). Coughing helps to heal and protect your lungs. It is normal to cough occasionally, but a cough that happens with other symptoms or lasts a long time may be a sign of a condition that needs treatment. An acute cough may only last 2 3 weeks, while a chronic cough may last 8 or more weeks. Coughing is commonly caused by: Infection of the respiratory systemby viruses or bacteria. Breathing in substances that irritate your lungs. Allergies. Asthma. Mucus that runs down the back of your throat (postnasal drip). Smoking. Acid backing up from the stomach into the esophagus (gastroesophageal reflux). Certain medicines. Chronic lung problems. Other medical conditions such as heart failure or a blood clot in the lung (pulmonary embolism). Follow these instructions at home: Medicines Take locj-ewb-anklyxw and prescription medicines only as told by your health care provider. Talk with your health care provider before you take a cough suppressant medicine. Lifestyle Avoid cigarette smoke. Do not use any products that contain nicotine or tobacco, such as cigarettes, e-cigarettes, and chewing tobacco. If you need help quitting, ask your health care provider. Drink enough fluid to keep your urine pale yellow. Avoid caffeine. Do not drink alcohol if your health care provider tells you not to drink. General instructions Pay close attention to changes in your cough. Tell your health care provider about them. Always cover your mouth when you cough. Avoid things that make you cough, such as perfume, candles, cleaning products, or campfire or tobacco smoke. If the air is dry, use a cool mist vaporizer or humidifier in your bedroom or your home to help loosen secretions. If your cough is worse at night, try to sleep in a semi-upright position. Rest as needed. Keep all follow-up visits as told by your health care provider. This is important. Contact a health care provider if you: Have new symptoms. Cough up pus. Have a cough that does not get better after 2 3 weeks or gets worse. Cannot control your cough with cough suppressant medicines and you are losing sleep. Have pain that gets worse or pain that is not helped with medicine. Have a fever. Have unexplained weight loss. Have night sweats. Get help right away if: You cough up blood. You have difficulty breathing. Your heartbeat is very fast. These symptoms may represent a serious problem that is an emergency. Do not wait to see if the symptoms will go away. Get medical help right away. Call your local emergency services (911 in the [place] Do not drive yourself to the hospital. Summary Coughing is a reflex that clears your throat and your airways. It is normal to cough occasionally, but a cough that happens with other symptoms or lasts a long time may be a sign of a condition that needs treatment. Take jqoz-ded-rzuceii and prescription medicines only as told by your health care provider. Always cover your mouth when you cough. Contact a health care provider if you have new symptoms or a cough that does not get better after 23 weeks or gets worse. This information is not intended to replace advice given to you by your health care provider. Make sure you discuss any questions you have with your health care provider. Document Revised: 07/13/2019 Document Reviewed: 07/13/2019 [employer] Patient Education 2022 [employer]. Follow Up Care 09/28/2023 01:07:11 With:Pepe Alcazar Address: [address] [place] [phone] Business (1) When:10/05/2023 only if needed [facility]03-13-2024 Hospital Discharge instructions Patient Education 09/17/2023 23:38:36 General Headache Without Cause General Headache Without Cause A headache is pain or discomfort felt around the head or neck area. There are many causes and typesof headaches. A few common types include: Tension headaches. Migraine headaches. Cluster headaches. Chronic daily headaches. Sometimes, the specific cause of a headache may not be found. Follow these instructions at home: Watch your condition for any changes. Let your health care provider know about them. Take these steps to help with your condition: Managing pain Take ejcg-eyh-svzuskr and prescription medicines only as told by your health care provider. Treatment may include medicines for pain that are taken by mouth or applied to the skin. Lie down in a dark, quiet room when you have a headache. Keep lights dim if bright lights bother you or make your headaches worse. If directed, put ice on your head and neck area: ?Put ice in a plastic bag. ?Place a towel between your skin and the bag. ?Leave the ice on for 20 minutes, 2 3 times per day. ?Remove the ice if your skin turns bright red. This is very important. If you cannot feel pain, heat, or cold, you have a greater risk of damage to the area. If directed, apply heat to the affected area. Use the heat source that your health care provider recommends, such as a moist heat pack or a heating pad. ?Place a towel between your skin and the heat source. ?Leave the heat on for 20 30 minutes. ?Remove the heat if your skin turns bright red. This is especially important if you are unable to feel pain, heat, or cold. You have a greater risk of getting burned. Eating and drinking Eat meals on a regular schedule. If you drink alcohol: ?Limit how much you have to: ?0 1 drink a day for women who are not . ? 0 2 drinks a day for men. ?Know how much alcohol is in a drink. In the [place] one drink equals one 12 oz bottle of beer (355 mL), one 5 oz glass of wine (148 mL), or one 1 oz glass of hard liquor (44 mL). Stop drinking caffeine, or decrease the amount of caffeine you drink. Drink enough fluid to keep your urine pale yellow. General instructions Keep a headache journal to help find out what may trigger your headaches. For example, write down: ?What you eat and drink. ?How much sleep you get. ?Any change to your diet or medicines. Try massage or other relaxation techniques. Limit stress. Sit up straight, and do not tense your muscles. Do not use any products that contain nicotine or tobacco. These products include cigarettes, chewing tobacco, and vaping devices, such as e-cigarettes. If you need help quitting, ask your health careprovider. Exercise regularly as told by your health care provider. Sleep on a regular schedule. Get 7 9 hours of sleep each night, or the amount recommended by your health care provider. Keep all follow-up visits. This is important. Contact a health care provider if: Medicine does not help your symptoms. You have a headache that is different from your usual headache. You have nausea or you vomit. You have a fever. Get help right away if: Your headache: ?Becomes severe quickly. ?Gets worse after moderate to intense physical activity. You have any of these symptoms: ?Repeated vomiting. ?Pain or stiffness in your neck. ?Changes to your vision. ?Pain in an eye or ear. ?Problems with speech. ?Muscular weakness or loss of muscle control. ?Loss of balance or coordination. You feel faint or pass out. You have confusion. You have a seizure. These symptoms may represent a serious problem that is an emergency. Do not wait to see if the symptoms will go away. Get medical help right away. Call your local emergency services (911 in the [place] Do not drive yourself to the hospital. Summary A headache is pain or discomfort felt around the head or neck area. There are many causes and types of headaches. In some cases, the cause may not be found. Keep a headache journal to help find out what may trigger your headaches. Watch your condition for any changes. Let your health care provider know about them. Contact a health care provider if you have a headache that is different from the usual headache, orif your symptoms are not helped by medicine. Get help right away if your headache becomes severe, you vomit, you have a loss of vision, you loseyour balance, or you have a seizure. This information is not intended to replace advice given to you by your health care provider. Make sure you discuss any questions you have with your health care provider. Document Revised: 11/22/2021 Document Reviewed: 11/22/2021 [employer] Patient Education 2022 [employer]. Follow Up Care 09/17/2023 20:39:37 With:Pepe Alcazar Address: [address] [place] [phone]- Business (1) When:Within 3 Day(s) [facility]03-12-2024 Evaluation + Plan noteExtracted from: Title:ED Note Author:Dandy Ashton DO Date :09/17/23 Headache (R51.9: Headache, u nspecified) Orders: diphenhydrAMINE, 25 mg = 0.5 mL, Injection, IV Push, Once, Stop date 09/17/23 20:50:00 EDT, STAT, Start date 09/17/23 20:50:00 EDT, 09/17/23 20:50:00 EDT ketorolac, 15 mg = 1 mL, Injection, IV Push, Once, Stop date 09/17/23 20:50:00 EDT, STAT, Start date 09/17/23 20:50:00 EDT, 09/17/23 20:50:00 EDT lorazepam, 0.5 mg = 0.25 mL, Injection, IV Push, Once, Stop date 09/17/23 22:00:00 EDT, Start date 09/17/23 22:00:00 EDT, 09/17/23 21:43:00 EDT magnesium sulfate + Dextrose 5% in Water intravenous solution 100 mL, 1 gram = 100 mL, Soln-IV, IV Piggyback, Once, Stop date 09/17/23 21:43:00 EDT, STAT, Start date 09/17/23 21:43:00 EDT, 100 mL/hr, Infuse over 60 minute(s), 09/17/23 21:43:00 EDT metoclopramide, 10 mg = 2 mL, Injection, IV Push, Once, Stop date 09/17/23 20:50:00 EDT, STAT, Start date 09/17/23 20:50:00 EDT, 09/17/23 20:50:00 EDT Sodium Chloride 0.9% intravenous solution, 1,000 mL, Soln-IV, IV, Once, Stop date 09/17/23 20:50:00 EDT, STAT, Start date 09/17/23 20:50:00 EDT, Infuse over 61, minute(s) [facility]12-04-2023 Evaluation + Plan noteExtracted from: Title:Pain Managment [...] reevaluation to discuss options PAOLA score: 36% [facility]11-01-2023 NoteHNO ID: [id number] Author: Stalin Reyes MD Service: ? Author Type: Physician Type: Progress Notes Filed: 05/08/2023 3:40 PM Note Text: [facility] Follow up/ Established patient visit Individuals who were included in, or assisted with the encounter were: Mitesh Burgess Stalin Reyes MD Chief Complaint/Issues: Mitesh Burgess is a 43 year old R handed female w PMH chronic migraine stopped Emgality half year ago, anxiety, depression, skull mass, seen in the [facility] for: Dizziness, headache and tremor Most Recent Neurological Assessment and Plan: Last Filed Values Date of Most Recent Assessment and Plan 12/17/22 Specialty General Neurology Assessment Mitesh Burgess is a 42 year old R handed female w PMH chronic migraine stopped Emgality half year ago, anxiety, depression, skull mass, seen in the [facility] for: 1. Dizziness, headache [...] pain management. Her pain management is absent [facility]. She has been on Lyrica 300 mg [...] intact. Fundi with normal (more content not included)...[facility]* Patient Instructions* Stalin Reyes MD - [...] up in 6 months documented in this encounterGenesis Hospital11-01-2023 History of Present illness Narrative* Stalin Reyes MD - 05/08/2023 2:21 PM EDT Images from the original note were not included. [facility] Follow up/ Established patient visit Individuals who were included in, or assisted with the encounter were: Mitesh Reyes MD Chief Complaint/Issues: Mitesh Burgess is a 43 year old R handed female w PMH chronic migraine stopped Emgality half year ago, anxiety, depression, skull mass, seen in the [facility] for: Dizziness, headache and tremor Most Recent Neurological Assessment and Plan: Last Filed Values Date of Most Recent Assessment and Plan 12/17/22 Specialty General Neurology Assessment Mitesh Burgess is a 42 year old R handed female w PMH chronic migraine stopped Emgality half year ago, anxiety, depression, skull mass, seen in the [facility] for: 1. Dizziness, headache [...] pain management. Her pain management is absent [facility]. She has been on Lyrica 300 mg [...] anxiety, depression, skull mass, seen in the [facility] for: 1. Dizziness, headache [...] on 06/24/18 EMG(NEURO/NI) Result Value Ref Range [employer] Mdm Architect Please click on 'View Neuro EMG' in [...] which included preparing to see the patient, tlix-mz-zofu patient care, completing clinical documentation, obtaining and/or reviewing separately obtained history, performing a medically appropriate examination, counseling and educating the pat ient/family/caregiver, ordering medications, tests, or procedures, independently interpreting results (not separately reported), communicating results to the patient/family/caregiver, and care coordination (not separately reported). Stalin Reyes MDThere is no data to display for this encounter documented in this encounterGenesis Hospital10-31-2023 Note [id number] [facility] Evaluation + Plan noteExtracted from: [...] Refill of Lyrica sent. PAOLA score: 42% [facility]09-08-2023 Evaluation + Plan noteExtracted from: Title:ED Note Author:Hailey Triana, Chandni Alston te:03/15/23 1. Migraine headache (G43.90 9: Migraine, [...] EDT, 500 mL/hr, Infuse over 1, hour(s) [facility]09-08-2023 Hospital Discharge instructions Patient Education 03/15/2023 [...] Follow these instructions at home: Medicines Take cogi-cif-idrrsfw and prescription medicines only as told by your health care provider. Ask your health care provider if the medicine prescribed to you: ?Requires you to avoid driving or using heavy machinery. ?Can cause constipation. You may need to take these actions to prevent or treat constipation: ?Drink enough fluid to keep your urine pale yellow. ?Take ihlp-xca-kjttekk or prescription medicines. ?Eat foods that are [...] provider. Document Revised: 10/16/2019 Document Reviewed: 08/06/2019 [employer] Patient Education 2022 TapFwd. Follow Up Care 03/14/2023 21:27:36 With:Pepe Alcazar Address: [address] [place], [place] [phone] Business (1) When:03/18/2023 Comments:Return to the emergency room if your headache recurs or any new symptoms. [facility]08-01-2023 NoteHNO ID: [id number] Author: Nathanael Ryan MD Service: ? Author Type: Physician Type: Progress Notes Filed: 02/05/2023 11:43 AM Note Text: [facility] New Patient Consultation Referred by Stalin Reyes [address] [facility] [address] Diagnosis: skull hemangioma Subjective History of Present [...] Routine brain MRI protocol (more content not included)...[facility]08-01-2023 History of Present illness Narrative* Nathanael Ryan MD - 02/05/2023 10:09 AM EDT Images from the original note were not included. [facility] New Patient Consultation Referred by Stalin Reyes [address] [facility] [address] Diagnosis: skull hemangioma Subjective History of Present [...] anxiety, depression, skull mass, seen in the [facility] for: Dizziness, headache [...] and is most compatible with intraosseous hemangioma. Manager Inspection: [facility] Transcribe Date/Time: Jan 24 2023 2:35P Dictated by : DONAL BURNS MD This examination was interpreted and the report reviewed and electronically signed by: DONAL BURNS MD on Jan 24 2023 2:42PM EST Data Review: Arnold Sanchez MD 10:26 AM 02/05/2023 [facility] Personal review of medical records: I reviewed the [facility] chart. Personal review of image, tracing or [...] which included preparing to see the patient, pbfu-on-kkir patient care, completing clinical documentation, obtaining and/or reviewing separately obtained history, counseling and educating the patient/family/caregiver, independently interpretin g results (not separately reported), and care coordination (not separately reported). Nathanael Ryan MD February 05, 2023 10:46 AM documented in this encounterGenesis Hospital08-01-2023 Nurse Note* Ade Patten Ma - 02/05/2023 9:40 AM EDT Additional intake questions: Has the patient had fever, nausea, vomiting, diarrhea, constipation, fatigue for > 1 week? No Does the patient have a decreased appetite? No Does patient want to see a Toddler Teacher? No (yes to any of above refer patient to schedulers for dietitian appointment) ) Does patient have any new or increased numbness or tingling of extremities? No Is patient interested in fertility information? No Does patient need any prescription refills? No Does patient have an advanced directive in place? No, Patient referred to [facility] documented in this encounterGenesis Hospital07-20-2023 NoteHNO ID: [id number] Author: Ade Valderrama RT([place]) Service: ? Author [...] Exam(s) Completed: Head: Routine Brain SIGNATURE: RT Jamal([place]) PATIENT NAME: Mitesh Burgess DATE: January 24, 2023 TIME: 2:05 [facility]07-20-2023 History of Present illness Narrative* Ade [...] Exam(s) Completed: Head: Routine Brain SIGNATURE: RT Jamal([place]) PATIENT NAME: Mitesh Burgess DATE: January 24, 2023 TIME: 2:05 PM documented in this encounterGenesis Hospital06-15-2023 Miscellaneous Notes* Telephone Encounter - Edilberto Tirado RN - 12/20/2022 3:58 PM EDT Ambulatory Pharmacy Prior Authorization Note Provider Intervention Required?: No- Pharmacy completed on your behalf. Rx Plan: Medicaid [facility] ([facility]) Drug: Emgality 120MG/ML auto-injectors (migraine) Cover My Meds Garcia: [id number] Determination: Approved Prior Authorization/Case #: n/a Prior [...] refills. Prescriptions will now be processed through [facility] for determination of next steps. For questions relating to this submission, please contact [facility] at [phone] * Telephone Encounter - Edilberto Tirado RN - 12/18/2022 4:55 PM EDT [facility] received prescription(s) for Emgality 120MG/ML auto-injectors (migraine). Benefits investigation was conducted, indicating that a prior authorization is required. PA was initiated and pending review through [employer]. All pertinent clinical information was submitted to insurance. CMM Garcia: [id number] Ordering Provider: MD Celestino Etienne Alisha, RN [facility] P: , F: documented in this encounterGenesis Hospital06-12-2023 NoteHNO ID: [id number] Author: Stailn Reyes MD Service: ? Author Type: Physician Type: Progress Notes Filed: 12/17/2022 2:28 PM Note Text: [facility] General Neurology Follow up/ Established patient visit Individuals who were included in, or assisted with the encounter were: Mitesh Burgess Stalin Reyes MD Chief Complaint/Issues: Mitesh Burgess is a 42 year old R handed female w PMH chronic migraine stopped Emgality half year ago, anxiety, depression, skull mass, seen in the [facility] for: Dizziness, headache [...] anxiety, depression, skull mass, seen in the [facility] for: 1. Dizziness, headache [...] and depression PLAN --W (more content not included)...[facility] [id number] Note Attestation signed by Eduardo Clemente MD [...] motion with home PT exercises. 08/28/22 Mitesh uBrgess is a 42 y.o. year old female [...] available for review today. MRI report from [facility] was reviewed stating the possibility of [...] WIN MD Orthopedic Surgery, PGY-1 Ortho Pager [phone] 10/13/22 1:38 [facility] Evaluation + Plan noteExtracted from: Title:Pain Managment Follow up Author:Ade Puente Date:10/01/22 Impression and Plan Patient is a 42-year-old female with a past medical history significant for lumbar neuritis, sacroiliitis, myalgia, left hip and knee pain. She also has some shoulder issues. She is seeing somebody at the [facility] for this. She has an appointment with [...] 01:00:00 PM Scheduled Provider:Ade Hennessy PA-C Location:.Pain [facility] Appointment Type:Pain Management - Follow Up (FT) [facility]02-21-2023 Note Attestation signed by Eduardo Clemente [...] available for review today. MRI report from [facility] was reviewed stating the possibility of [...] Jim Carranza MD Orthopedic Surgery, PGY-5 Pager: [phone] 08/28/22 11:42 AM By using the attestations [...] and I was otherwise immediately [facility]11-[facility]-2022 Evaluation + Plan noteExtracted from: Title:Pain Managment [...] for reevaluation. Call clinic sooner if necessary. [facility]10-05-2022 Hospital Discharge instructions Patient Education 04/11/2022 [...] fried or sweet foods. General instructions Take ziwh-rmv-kxfugjy and prescription medicines only as told by [...] 06/14/2003 Document Revised: 07/20/2019 Document Reviewed: 07/03/2018 [employer] Patient Education 2020 [employer] 04/11/2022 17:19:39 Neuropathic Pain Neuropathic Pain [...] treated? Treatment for neuropathic pain may change consultant time. You may need to try different treatment options or a combination of treatments. Some options include: Treating the underlying cause of the neuropathy, such as diabetes, kidney disease, or vitamin deficiencies. Stopping medicines that can cause neuropathy, such as chemotherapy. Medicine to relieve pain. Medicines may include: ?Prescription or cbru-jid-meexpdx pain medicine. ?Anti-seizure medicine. ?Antidepressant medicines. ?Pain-relieving [...] Follow these instructions at home: Medicines Take zdki-jpb-lhlyfsj and prescription medicines only as told by [...] as fried or sweet foods. ?Take an oqcy-xhv-agvbqlk or prescription medicine for constipation. Lifestyle Have [...] 03/21/2005 Document Revised: 10/15/2019 Document Reviewed: 07/11/2018 [employer] Patient Education 2020 [employer]Fwd. Follow Up Care 04/11/2022 14:37:42 With:Chay Carter Address: [address] [place] [phone]- Business (1) When:04/12/2022 16:43:30 With:Jr Martines Address: [address] , [place] [address]- Business (1) When:04/12/2022 16:43:28 With:Pepe [facility] Address: [address] [place] [phone] (1) When:Within 3 Day(s) [facility]10-05-2022 Evaluation + Plan noteExtracted from: Title:ED [...] Date:05/18/2022 11:15:00 AM Scheduled Provider:Ade Hennessy PA-C Location:.[facility] Appointment Type:Pain Management - Follow Up (FT) [facility]10-03-2022 Evaluation + Plan noteExtracted from: Title:Pain [...] had some falls and went to the [facility] and has had a lot of [...] Date:05/18/2022 11:15:00 AM Scheduled Provider:Ade Hennessy PA-C Location:FT.[facility] Appointment Type:Pain Management - Follow Up (FT) [facility]09-22-2022 NotePROCEDURE: XR SHOULDER LT 2V or > COMPARISON: None. HISTORY: Acute pain due to injury FINDINGS: BONES:No fracture, acute abnormality, or significant arthropathy. SOFT TISSUES:Negative. No visible soft tissue swelling. EFFUSION:None visible. OTHER: Negative. IMPRESSION: No acute abnormality Electronically authenticated by: EDUARDO CROSS Date: 2022-03-29 16:01[facility]08-05-2022 Evaluation + Plan noteExtracted from: Title:Pain [...] 11:15:00 AM Scheduled Provider:Ade Hennessy PA-C Location:[facility] Appointment Type:Pain Management - Follow Up (FT) [facility]05-13-2022 Evaluation + Plan noteExtracted from: Title:Pain [...] reevaluation. Call the clinic sooner if necessary. [facility] Future Appointments Appointment Date:11/17/2021 08:45:00 AM Scheduled Provider:Ade Hennessy PA-C Location:[facility] [place] Appointment Type:Pain Management - Follow Up (FT) [facility] Future Appointments Appointment Date:02/09/2022 10:00:00 AM Scheduled Provider:Ade Hennessy PA-C Location:[facility] [place] Appointment Type:Pain Management - Follow Up (FT) [facility] Future Appointments Appointment Date:03/26/2022 11:15:00 AM Scheduled Provider:Ade Hennessy PA-C Location:[facility] [place] Appointment Type:Pain Management - Follow Up (FT) [facility] Future Appointments Appointment Date:03/26/2022 11:15:00 AM Scheduled Provider:Ade Hennessy PA-C Location:[facility] [place] Appointment Type:Pain Management - Follow Up (FT) Diagnostic Tests Pending * T[facility] Future Appointments Appointment Date:04/30/2022 04:45:00 PM Scheduled Provider: Location:.[facility] [place] Appointment Type:PT Eval (FT) Appointment Date:05/18/2022 11:15:00 AM Scheduled Provider:Ade Hennessy PA-C Location:[facility] [place] Appointment Type:Pain Management - Follow Up (FT) Diagnostic Tests Pending * Group A Strep by PCR [facility] Future Appointments Appointment Date:08/14/2022 10:00:00 AM Scheduled Provider: Location:[facility] Appointment Type:Surgery FT Appointment Date:08/31/2022 08:45:00 AM Scheduled Provider:Ade Hennessy PA-C Location:[facility] [place] Appointment Type:Pain Management - Follow Up (FT) [facility] Future Appointments Appointment Date:08/31/2022 08:45:00 AM Scheduled Provider:Ade Hennessy PA-C Location:[facility] [place] Appointment Type:Pain Management - Follow Up (FT) [facility] Future Appointments Appointment Date:10/01/2022 10:30:00 AM Scheduled Provider:Ade Hennessy PA-C Location:[facility] [place] Appointment Type:Pain Management - Follow Up (FT) [facility] Future Appointments Appointment Date:06/10/2023 03:00:00 PM Scheduled Provider:Ade Hennessy PA-C Location:[facility] [place] Appointment Type:Pain Management - Follow Up (FT) [facility]* Diagnosis 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 Brain tumor (HCC) Neoplasm of unspecified nature of brain documented in this encounter [facility] note* Diagnosis Radiculopathy, lumbar region- Primary Thoracic or lumbosacral neuritis or radiculitis, unspecified Intractable chronic migraine without aura and without status migrainosus Chronic migraine without aura, with intractable migraine, so stated, without mention of status migrainosus Essential tremor Essential and other specified forms of tremor Depression, unspecified depression type Anxiety Anxiety state, unspecified documented in this encounter [facility] course Narrative No data available for this section [facility] Discharge instructions No data available for this section [facility] No data available for this section [facility] Summary Purpose Family History No Family [...] and content) DATE CREATED AUTHOR 12/26/2017 [facility] DATE CREATED AUTHOR 'S MARRYIZ ATDAV 10/13/2022 [facility] DATE CREATED AUTHOR AUTHOR'S ORGANIZ ATION 10/15/2022 [facility] DATE CREATED AUTHOR AUTHOR'S ORGANIZ ATION 02/06/2023 [facility] DATE CREATED AUTHOR AUTHOR'S ORGANIZ ATION 05/09/2023 [facility] DATE CREATED AUTHOR AUTHOR'S ORGANIZ ATION 09/29/2023 [facility] DATE CREATED AUTHOR AUTHOR'S ORGANIZ ATION 10/01/2023 [facility] Care Team (unrecognized sect ion and content) [employer] 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 Relationship Specialty Start Date End Date Pepe Alcazar MD PCP - General Family Medicine 05/10/15 [employer] Relationship Specialty Start Date End Date Pepe Alcazar MD PCP - General Family Medicine 05/10/15 [employer] Relationship Specialty Start Date End Date Pepe Alcazar MD PCP - General Family Medicine 05/10/15 [employer] Relationship Specialty Start Date End Date Pepe Alcazar MD PCP - General Family Medicine 05/10/15 Source Comments (unrecognize d section and content) In the event this informatio n is protected by the Federal Confidentiality of Alcohol and Drug Abuse Patient Records regulations: The Federal rules restrict any use of the information to criminally investigate or prosecute any alcohol or drug abuse patient.[facility] the event this information is protected by the Federal Confidentiality of Alcohol and Drug Abuse Patient Records regulations: The Federal rules restrict any use of the information to criminally investigate or prosecute any alcohol or drug abuse patient.[facility] HospitalIn the event this information is protected by the Federal Confidentiality of Alcohol and Drug Abuse Patient Records regulations: The Federal rules restrict any use of the information to criminally investigate or prosecute any alcohol or drug abuse patient.[facility] the event this information is protected by the Federal Confidentiality of Alcohol and Drug Abuse Patient Records regulations: The Federal rules restrict any use of the information to criminally investigate or prosecute any alcohol or drug abuse patient.[facility] Reason for Visit (unrecogniz ed section and content) Reason Comments Insurance Authorization Emgality 120MG/M L auto-injectors (migraine) Reason Comments Radiology MRI Reason Comments New Patient Specialty Diagnoses / Procedures Referred By Contac t Referred To Contact Neurosurgery Diagnoses Brain tumor (HCC) Procedures CONSULT TO NEUROSURGERY OFFICE/OUTPATIENT NEW HIGH MDM 60-74 MINUTES Stalin Reyes MD [address] [place] [address] Referral ID Status Reason Start Date Expiration Date V isits Requested Visits Authorized [id number] Closed PCP Requested Referral 12/17/2022 12/17/2023 1 [...] BE BASED ON THE PRIMARY CLINICAL RECORDS. [facility]. provides no warranty or guarantee of the accuracy or completeness of information in this document.
[2023-10-07 08:29] LABS: Basophils Percent Auto 0.5 % (0.2-2.0); Eosinophils Percent Auto 0.2 % (0.9-7.0); Hematocrit 43.7 % (36.0-48.0); Hemoglobin 14.6 g/dL (12.0-16.0); Immature Granulocytes Abs Auto 0.05 10^3/uL (0.00-0.03); Immature Granulocytes Pct Auto 0.8 % (0.0-0.5); Lymphocytes Absolute Auto 1.7 10^3/uL (1.2-3.8); Lymphocytes Percent Auto 27.1 % (20.5-60.0); Mean Corpuscular HGB Conc 33.4 g/dL (29.9-35.2); Mean Corpuscular Hemoglobin 31.1 pg (26.7-34.0); Mean Corpuscular Volume 93.2 fL (81.0-99.0); Mean Platelet Volume 9.6 fL (9.5-13.5); Monocytes Absolute Auto 0.5 10^3/uL (0.3-0.8); Monocytes Percent Auto 7.5 % (1.7-12.0); Neutrophils Absolute Auto 3.9 10^3/uL (1.4-6.5); Neutrophils Percent Auto 63.9 % (43.0-75.0); Platelet Count 325 10^3/uL (150-450); Red Blood Count 4.69 10^6/uL (4.20-5.40); Red Cell Distribution Width 12.6 % (11.0-15.0); White Blood Count 6.1 10^3/uL (4.0-11.0)
[2023-10-07 08:42] LABS: Estimated Average Glucose 85 mg/dL; Glycohemoglobin A1C 4.6 % (4.5-6.2)
[2023-10-07 10:46] LABS: Erythrocyte Sedimentation Rate 16 mm/hr (<=20)
[2023-10-07 12:07] LABS: Alanine Aminotransferase 19 U/L (14-59); Albumin Globulin Ratio 1.1; Albumin Level 3.5 g/dL (3.4-5.0); Alkaline Phosphatase 113 U/L (46-116); Anion Gap 13.1; Aspartate Amino Transferase 11 U/L (15-37); BUN Creatinine Ratio 12.6; Bilirubin Total 0.5 mg/dL (0.2-1.0); C Reactive Protein <0.50 mg/dL (<=0.50); Calcium 8.9 mg/dL (8.5-10.1); Carbon Dioxide 24.5 mmol/L (21.0-32.0); Chloride 105 mmol/L (98-107); Chol HDL Ratio 4.3; Cholesterol 158 mg/dL (<=200); Estimated GFR (African America >60 (>=60); Estimated GFR (Non-African Ame >60 (>=60); Free T3 2.02 pg/mL (2.18-3.98); Globulin 3.3 g/dL; Glucose 98 mg/dL (74-106); HDL Cholesterol 37 mg/dL (40-60); Potassium 3.6 mmol/L (3.5-5.1); Sodium 139 mmol/L (136-145); Thyroid Stimulating Hormone 0.741 uIU/mL (0.358-3.740); Total Protein 6.8 g/dL (6.4-8.2); Triglycerides 238 mg/dL (<=150); Uric Acid 3.9 mg/dL (2.6-6.0); VLDL CHOLESTEROL 47.6 mg/dL
[2023-10-08 04:08] LABS: Antistreptolysin O Ab 83.6 IU/mL (0.0-200.0); FSH 6.7 mIU/mL (.); Luteinizing Hormone(LH) 5.2 mIU/mL (.); Progesterone 0.2 ng/mL (.); Rheumatoid Factor (RF) <10.0 IU/mL (<14.0)
[2023-10-09 10:09] LABS: Antinuclear Antibodies, IFA Negative (.)
== END 2023-10-07 07:41 | disposition home or self-care (01) ==
LOC: LAB 07:41
PROVIDERS: PCP Family Medicine; Visit Provider Family Medicine
DX: J21.9 Acute bronchiolitis, unspecified (principal); F32.9 Major depressive disorder, single episode, unspecified; R53.83 Other fatigue; H83.09 Labyrinthitis, unspecified ear; E78.5 Hyperlipidemia, unspecified; R73.9 Hyperglycemia, unspecified; Z12.12 Encounter for screening for malignant neoplasm of rectum; D64.9 Anemia, unspecified; E55.9 Vitamin D deficiency, unspecified
CPT/HCPCS: 36415; 80053; 80061; 82306; 82670; 83001; 83002; 83036; 83525; 83540; 84144; 84436; 84443; 84481; 84550; 85025; 85652; 86038; 86060; 86140; 86431

== ENCOUNTER 2023-10-31 09:31 | Outpatient (OUT) | payer OTHER, SELFPAY ==
--- NOTE | 2023-10-31 09:37 | XR_ITS ---
[address] [address] Patient Name: MITESH BURGESS MRN: [id number] date: 1980 Sex: F Assigned Patient Location: [facility] Current Patient Location: Accession/Order Number: [id number] Exam Date: 10/31/2023 09:52 Report Date: 11/01/2023 05:44 At the request of: PEPE ALCAZAR Procedure: XR thoracic spine 3V EXAMINATION: XR thoracic spine 3V HISTORY: Thoracic Radiculopathy M54.14 ; lower thoracic spine pain, right side greater than left COMPARISON: No relevant comparison available. FINDINGS: BONES: Mild grade 1 anterior listhesis of C3 on 4 without appreciable disc space narrowing. Normal height and alignment of the thoracic vertebral bodies. DISC SPACES: No significant disc height narrowing, subluxation, or endplate abnormality. PARASPINOUS: Negative. No paraspinous abnormality is seen. OTHER: Negative. XR/XR thoracic spine 3V IMPRESSION: 1. Unremarkable thoracic spine. 2. Grade 1 anterolisthesis of C3 on 4. Consider dedicated radiographs of the cervical spine for further evaluation. Electronically authenticated by: HCAY MENDOZA Date: 11/01/2023 05:44
--- OUTSIDE RECORDS SUMMARY | 2023-10-31 09:39 | XMS_ITS | CCD ---
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 [facility] [address] [place] [address] Erythrocyte distribution width (RBC) [Ratio] 12.2 % Normal 10.9-14.2 [facility] Comment on above: Performed By: #### 2 056697, 11628932, 6254671, 08776425, 5155589, 7663312 #### [facility] [address] [place] [address] 87467 Hematocrit (Bld) [Volume fraction] 39.8 % Normal 34.0-46.0 [facility] Comment on above: Performed By: #### 2 991726, 12762404, 1929618, 57933866, 5927198, 7221443 #### [facility] [address] [place] [address] 53961 Hemoglobin (Bld) [Mass/Vol] 13.5 g/dL Normal 12.0-16.0 [facility] Comment on above: Performed By: #### 2 992955, 24059958, 1457159, 21320439, 2270632, 0466530 #### [facility] [address] [place] [address] Lymphocytes (Bld) [#/Vol] 1.8 E9/L Normal 1.0-4.0 [facility] Comment on above: Performed By: #### 2 253570, 02377551, 8604298, 54340386, 2495990, 0198986 #### [facility] [address] [place] [address] 30133 Lymphocytes/100 WBC (Bld) 28.3 % Normal 14.0-50.0 [facility] Comment on above: Performed By: #### 2 742409, 56055733, 9098343, 09048422, 6153268, 0868777 #### [facility] [address] [place] [address] 54783 MCH (RBC) [Entitic mass] 31.3 pg Normal 27.0-34.0 [facility] Comment on above: Performed By: #### 2 381320, 15812854, 3270181, 48679897, 5189876, 9045933 #### [facility] [address] [place] [address] 00703 MCHC (RBC) [Mass/Vol] 33.9 g/dL Normal 31.4-36.0 [facility] Comment on above: Performed By: #### 2 194048, 60987751, 7881399, 43000582, 1087277, 9033614 #### [facility] [address] [place] [address] 72421 MCV (RBC) [Entitic vol] 92.4 fL Normal 80.0-100.0 [facility] Comment on above: Performed By: #### 2 478613, 50291720, 7214480, 42405237, 2924515, 7710382 #### [facility] [address] [place] [address] 95166 Monocytes (Bld) [#/Vol] 0.5 E9/L Normal 0.2-1.0 [facility] Comment on above: Performed By: #### 2 384579, 63868188, 4900776, 63086140, 6698048, 4898691 #### [facility] [address] [place] [address] 17466 Neutrophils (Bld) [#/Vol] 4.1 E9/L Normal 2.0-7.5 [facility] Comment on above: Performed By: #### 2 393725, 68404572, 5738571, 48570697, 9015620, 9448144 #### [facility] [address] [place] [address] 49263 Neutrophils/100 WBC (Bld) 63.5 % Normal 36.0-75.0 [facility] Comment on above: Performed By: #### 2 525964, 96473748, 6664936, 77782826, 5814222, 9009534 #### [facility] [address] [place] [address] 88357 Platelet 255.0 E9/L Normal 150.0-500.0 [facility] Comment on above: Performed By: #### 2 352048, 66620417, 8071872, 01585154, 0194798, 5523268 #### [facility] [address] [place] [address] 21151 Platelet mean volume (Bld) [Entitic vol] 7.7 fL Normal 6.4-10.8 [facility] Comment on above: Performed By: #### 2 733897, 72273044, 6696435, 97582390, 4887485, 7311818 #### [facility] [address] [place] [address] 23052 RBC (Bld) [#/Vol] 4.3 E12/L Normal 4.3-5.9 [facility] Comment on above: Performed By: #### 2 059610, 38973407, 0620653, 92274070, 0977056, 0303086 #### [facility] [address] [place] [address] 03105 WBC corrected for nucl RBC Auto (Bld) [#/Vol] 6.5 E9/L Normal 4.0-11.0 [facility] Comment on above: Performed By: #### 2 505761, 09851620, 5954745, 56155752, 0715959, 3668208 #### [facility] [address] [place] [address] 00694 CHEMISTRYOrdered By: SYSTEM SYSTEM on 10-28-2023 Albumin [Mass/Vol] 4.1 g/dL Normal 3.3 - 5.0 gm/dL [facility] Chem Albumin/Globulin [Mass ratio] 1.6 {ratio} Normal 1.1 - 2.2 [facility] ALP [Catalytic activity/Vol] 86 [iU]/d Normal 21 - 98 Int._Unit/L [facility] Chem ALT No additional P-5'-P [Catalytic activity/Vol] 10 [iU]/d Normal 6 - 46 Int._Unit/L [facility] Chem Anion gap [Moles/Vol] 12 mmol/L Normal 6 - 16 mEq/L [facility] Chem AST [Catalytic activity/Vol] 10 [iU]/d Normal 5 - 43 Int._Unit/L [facility] Chem Bilirubin [Mass/Vol] 0.6 mg/dL Normal 0.0 - 1 .1 mg/dL [facility] Chem Bilirubin.direct [Mass/Vol] 0.1 mg/dL Normal 0.0 - 0.4 mg/dL [facility] Chem Bilirubin.indirect [Mass or moles/Vol] 0.5 mg/dL Normal 0.1 - 0.9 mg/dL [facility] Calcium [Mass/Vol] 8.8 mg/dL Low 8.9 - 11. 1 mg/dL [facility] Chloride [Moles/Vol] 107 mmol/L Normal 101 - 1 11 mmol/L [facility] CO2 [Moles/Vol] 22 mmol/L Normal 21 - 31 mmol/L [facility] Chem Creatinine [Mass/Vol] 0.9 mg/dL Normal 0.5 - 1.3 mg/dL [facility] Chem eGFR 81 mL/min/1.73 m2 Normal >=59mL/min / 1.73 m2 [facility] Globulin (S) [Mass/Vol] 2.5 g/dL Normal 1.4 - 4.0 gm/dL [facility] Glucose [Mass/Vol] 103 mg/dL Normal 55 - 199 mg/dL [facility] Lipase [Catalytic activity/Vol] 10 U/L Low 13 - 58 unit/L [facility] Potassium [Moles/Vol] 3.1 mmol/L Low 3.5 - 5.3 mmol/L [facility] Chem Protein [Mass/Vol] 6.6 g/dL Normal 6.0 - 7.8 gm/dL [facility] Sodium [Moles/Vol] 138 mmol/L Normal 135 - 145 mmol/L [facility] Urea nitrogen [Mass/Vol] 16 mg/dL Normal 5 - 21 mg/dL [facility] Urea nitrogen/Creatinine [Mass ratio] 18 mg/mg Normal 10 - 20 [facility] Chem Consent for Treatmenton 10-07 Consent for Treatment [id number] Normal [facility] ED Clinical Summaryon 2023 ED Clinical Summary (Inserted Image. Lucie ble to display) [place] [id number] ED Clinical Summary Person Information Name: MITESH BURGESS Pennie/[facility] Age: 43 Years : 1980 Sex: Female Language: Congolese PCP: Tae Alcazar MD Marital Status: Phone: [phone] Visit Id: Visit Reason: Nausea; Abdominal pain; ABD PAIN Speciality: Acuity: 3 Enc Type: Emergency Med Service: Emergency Arrival: 10/28/2023 17:25:04 Discharge: 10/28/2023 20:38:18 LOS: 000 03:13 Checkin: 10/28/2023 17:25:04 Checkout: 10/28/2023 20:38:18 Dispo Type: Home (Routine DC) EVENTS: Event Name Event Status Request Date/Time Start Date/Time Complete Date/Time Arrive Complete 10/28/2023 17:25:04 10/28/2023 17:25:04 10/28/2023 17:25:04 Document Home Meds Request 10/28/2023 17:25:04 Triage Complete 10/28/2023 17:25:04 10/28/2023 17:43:41 10/28/2023 17:43:41 Registration Complete 10/28/2023 17:27:48 10/28/2023 17:27:48 10/28/2023 17:27:48 Reg Complete Request 10/28/2023 17:27:48 Reg Bed Request Complete 10/28/2023 17:27:48 10/28/2023 17:27:48 10/28/2023 17:27:48 Bed Assign Complete 10/28/2023 17:34:48 10/28/2023 17:34:48 10/28/2023 17:34:48 Dr Exam Complete 10/28/2023 17:34:48 10/28/2023 17:36:37 10/28/2023 17:36:37 RN Exam Complete 10/28/2023 17:34:48 10/28/2023 18:37:14 10/28/2023 18:37:14 Registration Complete 10/28/2023 17:36:37 10/28/2023 18:41:35 10/28/2023 18:41:35 Dr Exam Complete 10/28/2023 17:41:34 10/28/2023 17:41:34 10/28/2023 17:41:34 Meds Admin Complete 10/28/2023 17:52:45 10/28/2023 18:32:05 Pending Labs Complete 10/28/2023 17:52:45 10/28/2023 20:12:24 Lab Complete 10/28/2023 17:52:45 10/28/2023 18:37:58 CT Complete 10/28/2023 17:52:45 10/28/2023 18:17:28 10/28/2023 19:29:56 Pending Labs Complete 10/28/2023 18:17:56 10/28/2023 18:17:56 10/28/2023 18:37:58 Lab Complete 10/28/2023 18:17:56 10/28/2023 18:17:56 10/28/2023 18:37:58 Pending Labs Complete 10/28/2023 19:39:50 10/28/2023 19:39:50 10/28/2023 19:39:50 Meds Admin Complete 10/28/2023 20:22:22 10/28/2023 20:36:42 Discharge Complete 10/28/2023 20:25:00 10/28/2023 20:38:26 10/28/2023 20:38:26 Transfer Complete 10/28/2023 20:38:26 10/28/2023 20:38:26 10/28/2023 20:38:26 ADDRESS: [address] [place] [id number] PHYS DOC NOTES: MEDICAL INFORMATION: Prescriptions Given: New Medications [facility]/pharmacy #[id number], [address] [place] [phone], [phone] acetaminophen-oxycodone (acetaminophen-oxycodone 325 mg-5 mg Tab) 1 Tablets By Mouth every 4 hours as needed for pain for 3 Days. Refills: 0. ondansetron (Zofran ODT 4 mg Tab-Dis) 1 Tablets By Mouth every 8 hours as needed Nausea/Vomiting. Refills: 0. Medications to Continue with No Changes Other Medications ascorbic acid (Vitamin C 500 mg Tab) 1 Tablets By Mouth every day. brompheniramine/dextromet horphan/PSE (Bromfed DM oral syrup) 5 Milliliter By Mouth 4 times a day as needed for cough and congestion. Refills: 0. busPIRone (busPIRone 15 mg Tab) 1 Tablets [...] MOUTH EVERY DAY. PATIENT EDUCATION INFORMATION: Instructions: Renal Mass Follow up: With: Address: When: Luis Armando [address], [address], [facility] [address] [place] [address] Business (1) [facility], [address] [place] [address] Business (1) In 3 days 10/31/2023 Comments: Call Dr for diagnosis based follow up With: Address: When: Tae Alcazar [address] [facility], [place] [address] Business (1) In 3 days DIAGNOSIS: Abdominal pain; Right kidney mass Normal [facility] ED Patient Education Noteon 10-28-2023 ED Patient Education Note Urology Renal Mass A renal mass is an abnormal growth in the kidney. It may be found while performing an MRI, CT scan, or ultrasound to evaluate other problems of the abdomen. A renal mass that is cancerous (malignant) may grow or spread quickly. Others are not cancerous (benign). Renal masses include: ? Tumors. These may be malignant or benign. ? The most common type of kidney cancer in adults is renal cell carcinoma. In children, the most common type of kidney cancer is Wilms tumor. ? The most common benign tumors of the kidney include renal adenomas, oncocytomas, and angiomyolipoma (AML). ? Cysts. These are fluid-filled sacs that form on or in the kidney. What are the causes? Certain types of cancers, infections, or injuries can cause a renal mass. It is not always known what causes a cyst to develop in or on the kidney. What are the signs or symptoms? Often, a renal mass does not cause any signs or symptoms; most kidney cysts do not cause symptoms. How is this diagnosed? Your health care provider may recommend tests to diagnose the cause of your renal mass. These tests may be done if a renal mass is found: ? Physical exam. ? Blood tests. ? Urine tests. ? Imaging tests, such as ultrasound, CT scan, or MRI. ? Biopsy. This is a small sample that is removed from the renal mass and tested in a lab. The exact tests and how often they are done will depend on: ? The size and appearance of the renal mass. ? Risk factors or medical conditions that increase your risk for problems. ? Any symptoms associated with the renal mass, or concerns that you have about it. Tests and physical exams may be done once, or they may be done regularly for a period of time. Tests and exams that are done regularly will help monitor whether the mass is growing and beginning to cause problems. How is this treated? Treatment is not always needed for this condition. Your health care provider may recommend careful monitoring and regular tests and exams. Treatment will depend on the cause of the mass. Treatment for a cancerous renal mass may include surgical removal, chemotherapy, radiation, or immunotherapy. Most kidney cysts do not need to be treated. Follow these instructions at home: What you need to do at home will depend on the cause of the mass. Follow the instructions that your health care provider gives to you. In general: ? Take nbcv-yhr-fnscolh and prescription medicines only as told by your health care provider. ? If you were prescribed an antibiotic medicine, take it as told by your health care provider. Do not stop taking the antibiotic even if you start to feel better. ? Follow any restrictions that are given to you by your health care provider. ? Keep all follow-up visits. This is important. ? You may need to see your health care provider once or twice a year to have CT scans and ultrasounds. These tests will show if your renal mass has changed or grown. Contact a health care provider if you: ? Have pain in your side or back (flank pain). ? Have a fever. ? Feel full soon after eating. ? Have pain or swelling in the abdomen. ? Lose weight. Get help right away if: ? Your pain gets worse. ? There is blood in your urine. ? You cannot urinate. ? You have chest pain. ? You have trouble breathing. These symptoms may represent a serious problem that is an emergency. Do not wait to see if the symptoms will go away. Get medical help right away. Call your local emergency services (911 in the [place] Summary ? A renal mass is an abnormal growth in the kidney. It may be cancerous (malignant) and grow or spread quickly, or it may not be cancerous (benign). Renal masses often do not have any signs or symptoms. ? Renal masses may be found while performing an MRI, CT scan, or ultrasound for other problems of the abdomen. ? Your health care provider may recommend that you have tests to diagnose the cause of your renal mass. These may include a physical exam, blood tests, urine tests, imaging, or a biopsy. ? Treatment is not always needed for this condition. Careful monitoring may be recommended. This information is not intended to replace advice given to you by your health care provider. Make sure you discuss any questions you have with your health care provider. Document Revised: 12/19/2020 Document Reviewed: 12/19/2020 Elsevier Patient Education ? 2022 [employer] Normal [facility] ED Patient Summaryon 024 ED Patient Summary (Inserted Image. Lucie ble to display) [address] [address] Patient Discharge Instructions Person Information Name: MITESH BURGESS Age: 43 Years Arrival Date: 10/28/2023 17:25:04 Discharge Diagnosis: Abdominal pain; Right kidney mass Primary Care Physician: Tae Alcazar MD Provider Information Primary Provider: Rosalio Dan DO [facility] Physician:None The exam and treatment you received in the Emergency Department were for an urgent problem and are not intended as complete care. It is important that you follow up with a doctor, nurse practitioner, or physician?s assistant corporate controller for ongoing care. If your symptoms become worse or you do not improve as expected and you are unable to reach your usual health care provider, you should return to the Emergency Department. We are available 24 hours a day. MITESH BURGESS has been given the following list of patient education materials, prescriptions and follow-up instructions: Follow-up Instructions: With: Address: When: Luis Armando FOW[address] [place] [address], [address] [address] Business (1) [facility], [address] , [place] [address] Business (1) In 3 days 10/31/2023 Comments: Call for diagnosis based follow up With: Address: When: Tae Alcazar [address] [facility], [place] [address] Business (1) In 3 days In the event that this physician does not participate in your insurance network, please consult with your insurance company to find a nearby participating provider. Patient Education Materials: Renal Mass A MESSAGE TO ALL PATIENTS REGARDING OPIOIDS PRESCRIPTION OPIOIDS: WHAT YOU NEED TO KNOW Prescription opioids can be used to help relieve ejrqclpp-bc-fonylm pain and are often prescribed following a [...] the Food and Drug Administration (www.fda.gov/Drugs/Resour cesForYou). (more content not included)... Normal [facility] HEMATOLOGYOrdered By: SYSTEM SYSTEM on 10-28-2023 Basophils/100 WBC (Bld) 0.4 % Normal 0.0 - 2.0 % Remisol Heme Basophils/Leukocytes Auto (Bld) [Pure # fraction] 0.0 E9/L Normal 0.0 - 0.2 E9/L Remisol Heme Eosinophils (Bld) [#/Vol] 0.0 E9/L Normal 0.0 - 0.5 E9/L Remisol Heme Eosinophils/100 WBC (Bld) 0.1 % Normal 0.0 - 8.0 % Remisol Heme Erythrocyte distribution width (RBC) [Ratio] 12.2 % Normal 10.9 - 14.2 % Rem[facility] Heme Hematocrit (Bld) [Volume fraction] 39.8 % Normal 34.0 - 46.0 % Remisol Heme Hemoglobin (Bld) [Mass/Vol] 13.5 g/dL Normal 12.0 - 16.0 gm/dL Rem[facility] Heme Lymphocytes (Bld) [#/Vol] 1.8 E9/L Normal 1.0 - 4.0 E9/L Rem[facility] Heme Lymphocytes/100 WBC (Bld) 28.3 % Normal 14.0 - 50.0 % Remisol Heme MCH (RBC) [Entitic mass] 31.3 pg Normal 27.0 - 34.0 pg Remisol Heme MCHC (RBC) [Mass/Vol] 33.9 g/dL Normal 31.4 - 36.0 gm/dL Rem[facility] Heme MCV (RBC) [Entitic vol] 92.4 fL Normal 80.0 - 100.0 fL Rem[facility] Heme Monocytes (Bld) [#/Vol] 0.5 E9/L Normal 0.2 - 1.0 E9/L Remisol Heme Monocytes/100 WBC (Bld) 7.7 % Normal 4.0 - 14.0 % Remisol Heme Neutrophils (Bld) [#/Vol] 4.1 E9/L Normal 2.0 - 7.5 E9/L Remisol Heme Neutrophils/100 WBC (Bld) 63.5 % Normal 36.0 - 75.0 % Remisol Heme Platelet 255.0 E9/L Normal 150.0 - 500.0 E9/L Remisol Heme Platelet mean volume (Bld) [Entitic vol] 7.7 fL Normal 6.4 - 10.8 fL Remisol Heme RBC (Bld) [#/Vol] 4.3 E12/L Normal 4.3 - 5.9 E12/L Remisol Heme WBC corrected for nucl RBC Auto (Bld) [#/Vol] 6.5 E9/L Normal 4.0 - 11.0 E9/L Remisol Heme Hep Func Panelon 10-28-2023 Albumin [Mass/Vol] 4.1 g/dL Normal 3.3-5.0 [facility] Comment on above: Performed By: #### 2 900641, 56671512, 9668069, 02075705, 3939770, 9413738 ####[facility] [address] [place] [address] Albumin/Globulin (S) [Mass conc ratio] 1.6 Normal 1.1-2.2 [facility] Comment on above: Performed By: #### 2 307891, 49249104, 6433513, 94286669, 4669452, 3281241 ####[facility] [address] [place] [address] ALP [Catalytic activity/Vol] 86 Int._Unit/L Normal 21-98 [facility] Comment on above: Performed By: #### 2 625691, 20719983, 6540113, 87907748, 1789851, 7880968 ####[facility] [address] [place] [address] ALT No additional P-5'-P [Catalytic activity/Vol] 10 Int._Unit/L Normal 6-46 [facility] Comment on above: Performed By: #### 2 538072, 92311598, 1223446, 09671951, 1982663, 3752872 ####[facility] [address] [place] [address] AST [Catalytic activity/Vol] 10 Int._Unit/L Normal 5-43 [facility] Comment on above: Performed By: #### 2 540207, 18062300, 3709789, 79493559, 3714298, 0529176 ####[place] [address] Bilirubin [Mass/Vol] 0.6 mg/dL Normal 0.0-1.1 [facility] Comment on above: Performed By: #### 2 732663, 10052952, 7056551, 63543955, 6724229, 4046017 ####[place] [address] Bilirubin.direct [Mass/Vol] 0.1 mg/dL Normal 0.0-0.4 [facility] Comment on above: Performed By: #### 2 529244, 52341580, 7631944, 03749345, 1140924, 6134972 ####[place] [address] Bilirubin.indirect [Mass or moles/Vol] 0.5 mg/dL Normal 0.1-0.9 [facility] Comment on above: Performed By: #### 2 225590, 04381803, 5672554, 78279490, 0941748, 3032586 ####[address] [address] Globulin (S) [Mass/Vol] 2.5 g/dL Normal 1.4-4.0 [facility] Comment on above: Performed By: #### 2 088005, 25260956, 3137948, 93383850, 0841163, 4031852 ####[address] [place] [address] Protein [Mass/Vol] 6.6 g/dL Normal 6.0-7.8 [facility] Comment on above: Performed By: #### 2 979066, 83966500, 4872056, 58692818, 4688009, 7333555 ####[facility] [address] [place] [address] Lipase Levelon 10-28-2023 Lipase [Catalytic activity/Vol] 10 U/L Low 13-58 [facility] Comment on above: Performed By: #### 2 801827, 09258129, 6425341, 60048667, 7168366, 3611134 ####[facility] [address] [place] [address] SEROLOGYOrdered By: Miroslava Michael on 10-28-2023 Beta HCG ( test) Ql Negative (10/28/23 6:04 PM) Normal [facility] Man Sero UA with Cult Rflxon 10-28-19 24 Bacteria Auto Ql (U) 1+ [id number] Abnormal Trace [facility] Comment on above: Performed By: #### 4 [id number] #### [facility] [address] [place] [address] Bilirubin Ql (U) 1+ mg/dL Abnormal Negative [facility] Comment on above: Performed By: #### 4 [id number] #### [facility] [address] [place] [address] Clarity (U) Turbid Abnormal Clear [facility] Comment on above: Performed By: #### 4 [id number] #### [facility] [address] [place] [address] Color (U) Yellow Normal Yellow [facility] Comment on above: Result Comment: Micr oscopic readings are only performed on those samples that meet specific criteria set forth by [facility]. Performed By: #### 4 [id number] #### [facility] [address] [place] [address] Epithelial cells.squamous Auto (Urine sed) [#/Area] 5-8 Abnormal 0-2 [facility] Comment on above: Performed By: #### 4 [id number] #### [facility] [address] [place] [address] Glucose Ql (U) Negative Normal Negative [facility] Comment on above: Performed By: #### 4 [id number] #### [facility] [address] [place] [address] Hemoglobin Auto test strip (U) [Mass/Vol] Negative Normal Negative [facility] Comment on above: Performed By: #### 4 [id number] #### [facility] [address] [place] [address] Ketones Auto test strip Ql (U) Negative Normal Negative [facility] Comment on above: Performed By: #### 4 [id number] #### [facility] [address] [place] [address] Leukocyte esterase Auto test strip Ql (U) Negative Normal Negative [facility] Comment on above: Performed By: #### 4 [id number] #### [facility] Laboratory [address] [place] [address] Mucus Auto Ql (U) Trace Normal Negative [facility] Comment on above: Performed By: #### 4 [id number] #### [facility] [address] [place] [address] Nitrite Auto test strip Ql (U) Negative Normal Negative [facility] Comment on above: Performed By: #### 4 [id number] #### [facility] [address] [place] [address] pH (U) 5.5 [pH] Invalid Interpretation Code 5.0-9.0 [facility] Comment on above: Performed By: #### 4 [id number] #### [facility] [address] [place] [address] Protein Ql (U) Negative Normal Negative [facility] Comment on above: Performed By: #### 4 [id number] #### [facility] [address] [place] [address] RBC Ql (U) 0-3 Normal 0-3 [facility] Comment on above: Performed By: #### 4 [id number] #### [facility] [address] [place] [address] Specific gravity (U) [Rel density] 1.023 Invalid Interpretation Code 1.005-1.030 [facility] Comment on above: Performed By: #### 4 [id number] #### [facility] [address] [place] [address] Urobilinogen (U) [Mass/Vol] Negative Normal Negative [facility] Comment on above: Performed By: #### 4 [id number] #### [facility] [address] [place] [address] WBC Auto (Urine sed) [#/Area] 0-5 Normal 0-5 [facility] Comment on above: Performed By: #### 4 [id number] #### [facility] [address] [place] [address] Type of Urine collection method Clean Catch Normal [facility] Comment on above: Performed By: #### 4 [id number] #### [facility] [address] [place] [address] URINALYSISOrdered By: SYSTEM SYSTEM on 10-28-2023 Bacteria Auto Ql (U) 1+ graded/HPF Invalid Interpretation Code Tracegraded /HPF [facility] UA Auto SS Bilirubin Ql (U) 1+ mg/dL Invalid Interpretation Code Negativemg/ dL [facility] UA Auto SS Clarity (U) Turbid *ABN* (10/28/23 7:59 PM) Invalid Interpretation Code Clear [facility] UA Auto SS Color (U) Yellow 1 (10/28/23 7:59 PM) Normal Yellow [facility] U[facility] Auto SS Comment on above: Interpretive Data: M icroscopic readings are only performed on those samples that meet specific criteria set forth by [facility]. Epithelial cells.squamous Auto (Urine sed) [#/Area] 5-8 graded/HPF Invalid Interpretation Code 0-2graded/H PF [facility] UA Auto SS Glucose Ql (U) Negative Normal Negativemg/ dL [facility] UA Auto SS Hemoglobin Auto test strip (U) [Mass/Vol] Negative Normal Negativemg/ dL [facility] UA Auto SS Ketones Auto test strip Ql (U) Negative Normal Negativemg/ dL [facility] UA Auto SS Leukocyte esterase Auto test strip Ql (U) Negative Normal NegativeLeu /uL [facility] UA Auto SS Mucus Auto Ql (U) Trace graded/LPF Normal Negati vegra ded/LPF [facility] UA Auto SS Nitrite Auto test strip Ql (U) Negative Normal Negativemg/ dL [facility] UA Auto SS pH (U) 5.5 *NA* (10/28/23 7:59 PM) Invalid Interpretation Code 5.0 - 9.0 [facility] UA Auto SS Protein Ql (U) Negative Normal Negativemg/ dL [facility] UA Auto SS RBC Ql (U) 0-3 graded/HPF Normal 0-3graded/H PF [facility] UA Auto SS Specific gravity (U) [Rel density] 1.023 *NA* (10/28/23 7:59 PM) Invalid Interpretation Code 1.005 - 1.030 [facility] UA Auto SS Urobilinogen (U) [Mass/Vol] Negative Normal Negativemg/ dL [facility] UA Auto SS WBC Auto (Urine sed) [#/Area] 0-5 graded/HPF Normal 0-5graded/H PF [facility] UA Auto SS URINALYSISOrdered By: Daniel moreno on 10-28-2023 UA Spec Desc Clean Catch (10/28/23 7:59 PM) Normal [facility] UA Auto SS Work Phone: eGFRon 10-28-2023 eGFR 81 mL/min/1.73 m2 Normal >=59 [facility] Comment on above: Order Comment: Order added by Discern Expert. Performed By: #### 2 [id number] ####[facility] [address] [place] [address] Consent for Treatmenton 09-06 Consent for Treatment [id number]#1.00TIFF Normal [facility] Discharge Instructionson Discharge Instructions [id number]#1.00TIFF Normal [facility] ED Clinical Summaryon 2023 ED Clinical Summary (Inserted Image. Lucie ble to display) [address] [address] ED Clinical Summary Person Information Name: MITESH BURGESS [place] Age: 43 Years : 1980 Sex: Female Language: Congolese PCP: Tae Alcazar MD Marital Status: Phone: [phone] Visit Id: Visit Reason: Sinus Pain/Congestion; Throat [...] 02:27:06 ADDRESS: [address] [place] [id number] PHYS DOC NOTES: MEDICAL INFORMATION: Prescriptions Given: New Medications [facility]/pharmacy #[id number], [address] [place] [id number], [phone] brompheniramine/dextromet horphan/PSE (Bromfed DM oral syrup) 5 [...] Cough, Adult Follow up: With: Address: When: Tae Alcazar [address] [place] [address], [address] [place] [id number] Business (1) In 7 days 10/05/2023, only if needed DIAGNOSIS: Cough Normal [facility] ED Note-Physicianon 09-28-19 ED Note-Physician Basic Information Time Seen: Dandy Ashton DO 09/28/2023 01:07 Chief Complaint pt to ED [...] course of cefdinir. She was also taking ybdi-zbx-puujmst sinus medications. She states that her sinuses [...] of Problems Differential Diagnosis: [] [facility] Data External documents reviewed: N/A My [...] cough and congestion, 200 mL, Refill(s) 0, [facility]/pharmacy #[id number], 160, cm, 09/28/23 1:17:00 EDT, Height/Length Dosing, 97.9, kg, 09/28/23 1:17:00 EDT, Weight Dosing dexamethasone, 10 mg = 2.5 mL, Injection, Oral, Once, Stop date 09/28/23 2:17:00 EDT, STAT, Start date 09/28/23 2:17:00 EDT, 09/28/23 2:17:00 EDT Influenza A&B Ag Rapid COVID Antigen ([facility]) XR Chest 2 Views Disposition Plan Discharge Prescription List Prescriptions Bromfed DM oral syrup, 5 mL, Oral, QID, PRN Follow-up With When Contact Information Tae Alcazar In 7 days 10/05/2023 EDT, only if needed [address] [facility] [address] [place] [phone]- Business (1) Additional Instructions: Patient Education Cough, [...] 1 tab(s) (more content not included)... Normal [facility] Comment on above: Result Comment: Elec trobrentally Signed By: Dandy Ashton DO\.br\Date and Time [...] these instructions at home: Medicines ? Take saav-vxz-uvwxdff and prescription medicines only as told by [...] a condition that needs treatment. ? Take ducl-xlh-rupiujj and prescription medicines only as told by [...] provider. Document Revised: 07/13/2019 Document Reviewed: 07/13/2019 [employer] Patient Education ? 2022 [employer] Normal [facility] ED Patient Summaryon 024 ED Patient Summary (Inserted Image. Lucie ble to display) [place] [id number] Patient Discharge Instructions Person Information Name: MITESH BURGESS Age: 43 Years Arrival Date: 09/28/2023 01:06:05 Discharge Diagnosis: Cough Primary Care Physician: Tae Alcazar MD Provider Information Primary Provider: Dandy Ashton DO Advanced Family Practice Physician:None The exam and treatment you received in the Emergency Department were for an urgent problem and are not intended as complete care. It is important that you follow up with a doctor, nurse practitioner, or physician?s assistant corporate controller for ongoing care. If your symptoms become worse or you do not improve as expected and you are unable to reach your usual health care provider, you should return to the Emergency Department. We are available 24 hours a day. MITESH BURGESS has been given the following list of patient education materials, prescriptions and follow-up instructions: Follow-up Instructions: With: Address: When: Tae Alcazar [facility], [place] [address] [employer] (1) In 7 days 10/05/2023, only if needed In the event that this physician does not participate in your insurance network, please consult with your insurance company to find a nearby participating provider. Patient Education Materials: Clarissa Adult A MESSAGE TO ALL PATIENTS REGARDING OPIOIDS PRESCRIPTION OPIOIDS: WHAT YOU NEED TO KNOW Prescription opioids can be used to help relieve xockkjgr-ba-vpzeio pain and are often prescribed following a [...] be struggling with addiction, tell your health career coach and ask for guidance or call [facility]?S National Helpline at 7-103-056-ZSKD. v Source: Department of (more content not included)... Normal [facility] Influenza A&B Agon 4 Influenzae A Ag Negative Normal Negative [facility] Comment on above: Performed By: #### 2 [id number], [id number] ####[facility] [address] [place] [address] Influenzae B Ag Negative Normal Negative [facility] Comment on above: Result Comment: Test sensitivity and specificity vary for age group, specimen type, antigen types, and prevalence of disease. Test results must be evaluated in conjunction with other clinical data available to the physician. Individuals who received nasally administered Influenza A vaccine may have positive test results up to 3 days after vaccination. Performed By: #### 2 [id number], [id number] ####[facility] [address] [place] [address] MICRO OTHER TESTSOrdered By: Hank Noel on 09-28-2023 Influenzae A Ag Negative (09/28/23 1:41 AM) Normal Negative [facility] Influenzae B Ag Negative 1 (09/28/23 1:41 AM) Normal Negative [facility] Comment on above: Interpretive [...] NEG Ctl Pass (09/28/23 1:41 AM) Normal [facility] Rapid COV Int POS Ctl Pass (09/28/23 1:41 AM) Normal [facility] SARS-CoV+SARS-CoV-2 (COVID-19) Ag IA.rapid Ql (Resp) Not Detected 2 (09/28/23 1:41 AM) Normal Not Detected [facility] Comment on above: Interpretive Data: T he [employer] Veritor System for Rapid Detection of SARS-CoV-2 [...] other viruses or pathogens; and, in the [facility], this test is only authorized for the duration of the declaration that circumstances exist justifying the authorization of emergency use of in vitro diagnostics for detection and/or diagnosis of the virus that causes COVID-19 under Section 564(b)(1) of the Act, 21 U.S.C. 360bbb-3(b)(1), unless the authorization is terminated or revoked sooner. Prescriptions/Work Noteson 0 09-28-2023 Prescriptions/Work Notes [id number]#1.00TIFF Normal [facility] Rapid COVID Antigen ([facility])on 09-28-2023 Rapid COV Int NEG Ctl Pass Normal [facility] Comment on above: Performed By: #### 2 [id number], [id number] ####[place] [address] [place] [address] Rapid COV Int POS Ctl Pass Normal [facility] Comment on above: Performed By: #### 2 [id number], [id number] ####[place] [id number] SARS-CoV+SARS-CoV-2 (COVID-19) Ag IA.rapid Ql (Resp) Not detected Normal Not Detected [facility] Comment on above: Result Comment: The [employer]? System for Rapid Detection of SARS-CoV-2 is [...] other viruses or pathogens; and, in the [facility], this test is only authorized for the duration of the declaration that circumstances exist justifying the authorization of emergency use of in vitro diagnostics for detection and/or diagnosis of the virus that causes COVID-19 under Section 564(b)(1) of the Act, 21 U.S.C. ? 360bbb-3(b)(1), unless the authorization is terminated or revoked sooner. Performed By: #### 2 [id number], [id number] ####[facility] [address] [place] [address] XR Chest 2 Viewson 4 XR Chest 2 Views Exam Date/Time: 09/28/2023 [...] Josse Stiles DO Transcribed by: ANGELITA Technologist: YESSENIA Technical Comments Radiation Dose: Ka,r in mGy = na DAP = na Normal [facility] ED Clinical Summaryon 2023 ED Clinical Summary (Inserted Image. Lucie ble to display) [address] [address] ED Clinical Summary Person Information Name: MITESH BURGESS/[facility] Age: 43 Years : 1980 Sex: Female Language: Congolese PCP: Tae Alcazar MD Marital Status: Phone: [phone] Visit Id: Visit Reason: Anxiety; Headache; PANIC [...] 09/17/2023 23:38:36 09/17/2023 23:38:36 09/17/2023 23:38:36 ADDRESS: [address] [place] [id number] PHYS DOC NOTES: MEDICAL INFORMATION: Prescriptions Given: [...] Without Cause Follow up: With: Address: When: Tae Alcazar [address] [facility], [place] [address] Business (1) In 3 days DIAGNOSIS: Headache Normal [facility] ED Note-Physicianon 09-18-19 ED Note-Physician Basic Information Time Seen: Poli CALLES Dandy Kemar 09/17/2023 20:40 Chief Complaint Pt. presents to the ed with c/o headache and panick attack. Pt. 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 pt. is alert and oriented x 4 [...] has had a migraine headache since 1999 ton. She states that she has a history [...] of Problems Differential Diagnosis: [] [facility] Data External documents reviewed: N/A My [...] Contact Information Tae Alcazar In 3 days [address] [place] [phone] Business (1) Additional Instructions: Patient Education General [...] root of lumbar spine using fluoroscopic guidance (/ (more content not included)... Normal [facility] Comment on above: Result Comment: Elec [...] with your condition: Managing pain ? Take xpmw-twq-zxkaldm and prescription medicines only as told by [...] provider. Document Revised: 11/22/2021 Document Reviewed: 11/22/2021 [employer] Patient Education ? 2022 [employer] Normal [facility] ED Patient Summaryon 024 ED Patient Summary (Inserted Image. Lucie ble to display) [address] [address] Patient Discharge Instructions Person Information Name: MITESH BURGESS Age: 43 Years Arrival Date: 09/17/2023 20:38:29 Discharge Diagnosis: Headache Primary Care Physician: Tae Alcazar MD Provider Information Primary Provider: Dandy Ashton DO Advanced Family Practice Physician:None The exam and treatment you received in the Emergency Department were for an urgent problem and are not intended as complete care. It is important that you follow up with a doctor, nurse practitioner, or physician?s assistant corporate controller for ongoing care. If your symptoms become worse or you do not improve as expected and you are unable to reach your usual health care provider, you should return to the Emergency Department. We are available 24 hours a day. MITESH BURGESS has been given the following list of patient education materials, prescriptions and follow-up instructions: Follow-up Instructions: With: Address: When: Tae Inge [address] [place] [address], [facility] [place] [address] Business (1) In 3 days In the event that this physician does not participate in your insurance network, please consult with your insurance company to find a nearby participating provider. Patient Education Materials: General Headache Without Cause A MESSAGE TO ALL PATIENTS REGARDING OPIOIDS PRESCRIPTION OPIOIDS: WHAT YOU NEED TO KNOW Prescription opioids can be used to help relieve mrkouluf-sc-toqyit pain and are often prescribed following a [...] be struggling with addiction, tell your health career coach and ask for guidance or call [employer]?S National Helpline at 1-426-224-HELP. v Source: Department of [facility] (more content not included)... Normal [facility] Monitor Recordon 09-18-2023 Monitor Record [id number]#1.00TIFF Normal [facility] Monitor Record [id number]#1.00TIFF [facility] Consent for Treatmenton 09-05 Consent for Treatment [id number]#1.00TIFF Normal [facility] Nonvisit Note - PTon 024 Nonvisit Note - PT Patient cancelled to day's PT session. 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 Normal [facility] Nonvisit Note - PTon 024 Nonvisit Note - PT Patient cancelled to day's session, no reason given to MELTER OPERATOR. Normal [facility] Nonvisit Note - PTon 024 Nonvisit Note - PT Pt. cancelled PT appointment on 08/08/23. States she twisted wrong and is in a lot of pain. Next appointment confirmed. Normal [facility] Nonvisit Note - PTon 024 Nonvisit Note - PT Patient cancelled to day's PT appointment, no reason given to MELTER OPERATOR. Normal [facility] PT - Orderson 08-02-2023 PT - Orders [id number]#1.00TIFF [facility] Insurance Correspondenceon 0 07-30-2023 [facility] Reference #: [id number] approved for 72 units of PT - DOS 07/30/2023-10/04/2023 CPT 66787,55235,95677,67348,9 7032,74906,81600 Reference #: [id number] Description: Outpatient Elective Place Of Service: [address] [facility] Submitting Provider: [facility] Requesting/Ordering Provider: [facility], [facility] Servicing/Rendering Provider: [facility] Facility: Member Information Member Name: Mitesh Patel Id: [id number] Date: 1980 Gender: Female Service Event Diagnosis Code: M54.16 Radiculopathy, lumbar region Procedure: PT - Physical Therapy, Outpatient Line #1 Requested Received Date: 07/30/2023 12:17:22 PM Requested Units: 72 Start Date of Service: 07/30/2023 Authorized Units: 72 End Date of Service: 10/04/2023 Status: Approved Service Event Diagnosis Code: M54.16 Radiculopathy, lumbar region Procedure: 26939 Therapeutic procedure, 1 or more areas, each 15 minutes; aquatic therapy with therapeutic exercises Line #1 Requested Received Date: 07/30/2023 12:17:22 PM Requested Units: 72 Start Date of Service: 07/30/2023 Authorized Units: 72 End Date of Service: 10/04/2023 Status: Approved Service Event Diagnosis Code: M54.16 Radiculopathy, lumbar region Procedure: 20937 Therapeutic procedure, 1 or more areas, each 15 minutes; gait training (includes stair climbing) Line #1 Requested Received Date: 07/30/2023 12:17:22 PM Requested Units: 72 Start Date of Service: 07/30/2023 Authorized Units: 72 End Date of Service: 10/04/2023 Status: Approved Service Event Diagnosis Code: M54.16 Radiculopathy, lumbar region Procedure: 90110 Manual therapy techniques (eg, mobilization/ manipulation, manual lymphatic drainage, manual traction), 1 or more regions, each 15 minutes Line #1 Requested Received Date: 07/30/2023 12:17:22 PM Requested Units: 72 Start Date of Service: 07/30/2023 Authorized Units: 72 End Date of Service: 10/04/2023 Status: Approved Service Event Diagnosis Code: M54.16 Radiculopathy, lumbar region Procedure: 16808 Application of a modality to 1 or more areas; traction, mechanical Line #1 Requested Received Date: 07/30/2023 12:17:22 PM Requested Units: 72 Start Date of Service: 07/30/2023 Authorized Units: 72 End Date of Service: 10/04/2023 Status: Approved Service Event Diagnosis Code: M54.16 Radiculopathy, lumbar region Procedure: 59486 Application of a modality to 1 or more areas; ultrasound, each 15 minutes Line #1 Requested Received Date: 07/30/2023 12:17:22 PM Requested Units: 72 Start Date of Service: 07/30/2023 Authorized Units: 72 End Date of Service: 10/04/2023 Status: Approved Service Event Diagnosis Code: M54.16 Radiculopathy, lumbar region Procedure: 17093 Application of a modality to 1 or more areas; electrical stimulation (manual), each 15 minutes Line #1 Requested Received Date: 07/30/2023 12:17:22 PM Requested Units: 72 Start Date of Service: 07/30/2023 Authorized Units: 72 End Date of Service: 10/04/2023 Status: Approved Service Event Diagnosis Code: M54.16 Radiculopathy, lumbar region Procedure: 54596 Therapeutic procedure, 1 or more areas, each 15 minutes; therapeutic exercises to develop strength and endurance, range of motion and flexibility Line #1 Requested Received Date: 07/30/2023 12:17:22 PM Requested Units: 72 Start Date of Service: 07/30/2023 Authorized Units: 72 End Date of Service: 10/04/2023 Status: Approved [facility] CAREERS Invalid Interpretation Code maufait. COM [facility] Consent for Treatmenton 07-09 Consent for Treatment [id number]#1.00TIFF Normal [facility] PT - Assessmentson PT - Assessments [id number]#1.00TIFF Normal [facility] PT - Consentson 07-29-2023 PT - Consents [id number]#1.00TIFF Normal [facility] PT - Orderson 07-29-2023 PT - Orders [id number]#1.00TIFF Normal [facility] Nonvisit Note - PTon 024 Nonvisit Note - PT chart reviewed with eval prepped for scheduled eval. KK Normal [facility] Nonvisit Note - PTon 023 Nonvisit Note - PT chart reviewed with eval prepped for scheduled eval. [facility] Orders Officeon 06-21-2023 Orders Office [id number]#1.00TIFF [facility] Consent for Treatmenton Consent for Treatment [id number]#1.00TIFF [facility] Consultation Noteon 06-10-20 23 Consultation Note Patient: MITESH BURGESS Age: [...] BID, # 60 cap(s), Refills(s) 1, [id number] 161, cm, 06/10/23 15:18:00 EST, Height/Length Dosing, 95.2, kg, 04/19/23 8:29:00 EDT, Weight Dosing albuterol HFA 90 mcg/inh MDI: 2 puff(s), Inhalation, QID Shortness of breath or wheezing, 1 EA, Refill(s) 0, qid and prn sob/wheezing, [facility]/pharmacy #[id number], 160, cm, 04/27/20 22:06:00 EDT, Height/Length Dosing, 98, kg, 04/27/20 22:06:00 EDT, Weight Dosing methocarbamol 500 mg Tab: 500 mg = 1 tab(s), Oral, TID, PRN Spasm, X 30 day(s), # 90 tab(s), Refills(s) 2, [id number], 161, cm, 06/10/23 15:18:00 EST, [...] cyst of lumbar spine / SNOMED CT 0980091654 / Confirmed Neuropathy / SNOMED CT 3407897439 / Confirmed Ascending aorta dilation / SNOMED CT 239843072 / Confirmed Anxiety / SNOMED CT 30209771 / Confirmed Bipolar disorder / SNOMED CT 94163482 / Confirmed Labral tear of shoulder / SNOMED CT 487280530 / Confirmed Resolved: At risk for falls / SNOMED CT 371873727 Problem added when Risk for Falls Careplan was initiated. Resolved due to patient discharge. Resolved: Migraine / SNOMED CT 84527205 Resolved: Seasonal allergies / SNOMED CT [id number] Objective Vital Signs 06/10/2023 15:08 EST Peripheral Pulse Rate 76 bpm Respiratory Rate 18 br/min Systolic Blood Pressure 117 mmHg Diastolic Blood Pressure 69 mmHg Mean Arterial Pressure, Cuff 85 mmHg General: Alert and oriented, No acute distress. Eye: Normal conjunctiva. HENT: Normocephalic, Normal hearing. Cardiovascular: No edema. Musculoskeletal Normal range of motion. Normal strength. 5/5 lower extremity strength Integumentary: Warm, Dry, [place]. Injection site well-healed Neurologic: Alert, Oriented. Psychiatric: Cooperative, Appropriate mood & affect. Imp (more content not included)... Normal [facility] Comment on above: Result Comment: Elec tronically Signed By: Ade Hennessy PA-C\.br\Date and Time Signed: 06/10/23 15:27 EST\.br\Electronically Co-Signed By: Hai JAY, Boy Wilson\.br\Date and Time Co-Signed: 06/13/23 10:59 EST Office/Clinic Note-Physician on 06-10-2023 Office/Clinic Note-Physician [id number]#1.00TIF F [facility] Patient Correspondenceon Patient Correspondence [id number]#1.00TIF F [facility] Patient Correspondence [id number]#1.00TIF F [facility] Patient History Officeon Patient History Office [id number]#1.00TIF F [facility] CNOVon 05-08-2023 CNOV Office Visit (NEADFV ) ----- MITESH BURGESS ([id number]) 1980 F Date Time Provider Department 05/08/23 2:30 PM STALIN REYES During your visit today, we recorded the following information about you: Pulse Blood pressure Weight Height 67/minute 111/66 97.2 kg 1.6 m Stalin Reyes MD 05/08/2023 3:40 PM Signed [facility] Follow up/ Established patient visit Individuals who were included in, or assisted with the encounter were: Mitesh Burgess Stalin Reyes MD Chief Complaint/Issues: Mitesh Burgess is a 43 year old R handed female w PMH chronic migraine stopped Emgality half year ago, anxiety, depression, skull mass, seen in the [facility] for: Dizziness, headache and tremor Most Recent Neurological Assessment and Plan: Last Filed Values Date of Most Recent Assessment and Plan 12/17/22 Specialty General Neurology Assessment Mitesh Burgess is a 42 year old R handed female w PMH chronic migraine stopped Emgality half year ago, anxiety, depression, skull mass, seen in the [facility] for: 1. Dizziness, [...] pain management. Her pain management is absent [facility]. She has been on Lyrica 300 [...] no acute (more content not included)... Normal [facility] Consent for Procedure/Surger yon 05-07-2023 Consent for Procedure/Surgery [id number]#1.00TIFF Normal [facility] Consent for Treatmenton 04-09 Consent for Treatment [id number]#1.00TIFF [facility] Discharge Instructionson Discharge Instructions [id number]#1.00TIFF [facility] IntraOperative Documentson IntraOperative Documents [id number]#1.00TIFF [facility] Main OR Intraoperative Recor don 05-07-2023 Main OR Intraoperative Record IntraOp Document Type FTPM Summary Primary Physician: Boy Valles MD Finalized Date/Time: 05/07/23 09:17:26 Pt. Name: MITESH BURGESS/Sex: 1980 Female Med Rec #: [id number] Physician: Boy Valles MD Financial #: [id number] Pt. Type: P Room/Bed: / Admit/Disch: 05/07/23 07:41:17 - Institution: Case Times FTPM Entry 1 Patient Times In Room 05/07/23 09:11:00 Out Room 05/07/23 09:18:00 Procedure Times Start 05/07/23 09:14:00 Stop 05/07/23 09:17:00 Anesthesia Times Last Modified By: Heaven Butts RN 05/07/23 09:17:09 Case Attendance FTPM Entry 1 Entry 2 Entry 3 Case Attendee Boy Valles MD, RN, Heaven Pires RN, [facility] Role Performed Surgeon - Primary Retail Worker - Primary Scrub - Primary Time In 05/07/23 09:11:00 05/07/23 09:11:00 10/31/23 09:11:00 Time Out 05/07/23 09:18:00 05/07/23 09:18:00 05/07/23 09:18:00 Procedure TRANSFORAMINAL EPIDURAL TRANSFORAMINAL EPIDURAL TRANSFORAMINAL EPIDURAL STEROID INJECTIO(Left) STEROID INJECTIO(Left) STEROID INJECTIO(Left) Comments Last Modified By: Heaven Butts RN, RN, Heaven Arguello RN 05/07/23 09:17:10 05/07/23 09:17:10 05/07/23 09:17:10 Entry 4 Case Attendee Nish Walker Role Performed [employer] Teacher Time In 05/07/23 09:11:00 Time Out 05/07/23 [...] Antibiotic No Time Out Heaven Butts RN, Anadna Pires RN, Hai Paulson MD, Aaron Matamoros [...] and tissue Entry 1 Skin Integrity Intact, [place], Warm, and Skin Abnormality No Dry Outcomes [...] Points Check (more content not included)... Normal [facility] Main OR Preoperative Recordo n 05-07-2023 Main OR Preoperative Record Holding Area Document Type FT Summary Primary Physician: Boy Valles MD Finalized Date/Time: 05/07/23 08:11:41 Pt. Name: MITESH BURGESS /Sex: 1980 Female Med Rec #: [id number] Physician: Boy Valles MD Financial #: [id number] Pt. Type: P Room/Bed: / Admit/Disch: 05/07/23 [...] By: Gaby Ambrocio RN 05/07/23 08:11 Normal [facility] Operative Reporton 3 Operative Report Patient: MITESH [...] EDT Respiratory Rate 16 br/min . Normal [facility] Comment on above: Result Comment: Elec tronically Signed By: Hai JAY, Boy Wilson\.br\Date and Time Signed: 05/07/23 09:17 EDT Patient Correspondenceon Patient Correspondence [id number]#1.00TIFF Normal [facility] Insurance Correspondence Off iceon 04-23-2023 Insurance Correspondence Office [id number]#2.00TIFF Normal [facility] Consent for Treatmenton 04-07 Consent for Treatment [id number]#1.00TIFF Normal [facility] Consultation Noteon 04-19-20 Consultation Note Patient: MITESH [...] EA, Refill(s) 0, qid and prn sob/wheezing, [facility]/pharmacy #[id number], 160, cm, 04/27/20 22:06:00 EDT, Height/Length Dosing, 98, kg, 04/27/20 22:06:00 EDT, Weight Dosing off work: off work, See Instructions, 1 EA, 0, Patient had a procedure with our services. She should be excused from work for 10/30/21 and 10/31/21, Supply pregabalin 225 mg oral capsule: 225 mg = 1 cap(s), Oral, BID, # 60 cap(s), Refills(s) 2, Pharmacy: [facility]/pharmacy #[id number], 158, cm, 08/31/22 9:15:00 EST, Height/Length Dosing, 91.6, kg, 05/18/22 11:25:00 EST, Weight Dosing pregabalin 300 mg Cap: 300 mg = 1 cap(s), Oral, BID, # 60 cap(s), Refills(s) 1, Pharmacy: [facility]/pharmacy #[id number], 158, cm, 10/01/22 10:45:00 EDT, Height/Length [...] cyst of lumbar spine / SNOMED CT 2312765225 / Confirmed Neuropathy / SNOMED CT 0323320804 / Confirmed Ascending aorta dilation / SNOMED CT 480576410 / Confirmed Anxiety / SNOMED CT 80076224 / Confirmed Bipolar disorder / SNOMED CT 73186827 / Confirmed Labral tear of shoulder / SNOMED CT 630207423 / Confirmed Resolved: At risk for falls / SNOMED CT 671142703 Problem added when Risk for Falls Careplan was initiated. Resolved due to patient discharge. Resolved: Migraine / SNOMED CT 35103910 Resolved: Seasonal allergies / SNOMED CT [id number]-[id number] Objective Vital Signs 04/19/2023 8:17 EDT Peripheral [...] seated straight leg raise Integumentary: Warm, Dry, [place]. Neurologic: Alert, Oriented. Psychi (more content not included)... Normal [facility] Comment on above: Result Comment: Elec tronically Signed By: Minoo ZAPIEN, Ade\.br\Date and Time Signed: 04/19/23 08:55 EDT\.br\Electronically Co-Signed By: Hai JAY, Boy Wilson\.br\Date and Time Co-Signed: 04/23/23 12:36 EDT Office/Clinic Note-Physician on 04-19-2023 Office/Clinic Note-Physician [id number]#1.00TIFF Normal [facility] Patient Correspondenceon Patient Correspondence [id number]#1.00TIFF Normal [facility] Patient Correspondence [id number]#1.00TIFF Normal [facility] Patient History Officeon Patient History Office [id number]#1.00TIFF Normal [facility] Discharge Instructionson Discharge Instructions [id number]#1.00CD:1 27 Normal [facility] ED Clinical Summaryon 2022 ED Clinical Summary (Inserted Image. Lucie ble to display) [place] [id number] ED Clinical Summary Person Information Name: MITESH BURGESS Pennie/[facility] Age: 42 Years : 1980 Sex: Female Language: Congolese PCP: Tae Alcazar MD Marital Status: Phone: [phone] Visit Id: Visit Reason: Headache; Nausea; HEADACHE [...] 03/15/2023 01:14:43 03/15/2023 01:14:43 03/15/2023 01:14:43 ADDRESS: [address] [place] [address] [address] [place] [phone] PHYS DOC NOTES: MEDICAL INFORMATION: Prescriptions Given: [...] Follow up: With: Address: When: Tae Alcazar [address] [place] [address], [address] [place] [id number] [employer] In 3 days 03/18/2023 Comments: Return to the emergency room if your headache recurs or any new symptoms. DIAGNOSIS: 1:Migraine headache Normal [facility] ED Note-Physicianon 03-15-20 ED Note-Physician Basic Information Time Seen: Hailey TrianaChandni 03/14/2023 22:55 Chief Complaint Patient reports migraine [...] of Problems Differential Diagnosis: [] [facility] Data External documents reviewed: [] My [...] Alcazar In 3 days 03/18/2023 EDT [address] [facility] [place] [address]- Business (1) Additional Instructions: Return to the [...] Cholecystectomy (12/07/2003), (more content not included)... Normal [facility] Comment on above: Result Comment: Elec tronically Signed By: Hailey Triana, Chandni Valente\.br\Date and Time Signed: 03/15/23 03:33 EDT ED [...] these instructions at home: Medicines ? Take sovt-wzt-zlgqeti and prescription medicines only as told by your health care provider. ? Ask your health care provider if the medicine prescribed to you: ? Requires you to avoid driving or using heavy machinery. ? Can cause constipation. You may need to take these actions to prevent or treat constipation: ? Drink enough fluid to keep your urine pale yellow. ? Take vgdz-hct-jlmusmh or prescription medicines. ? Eat foods that [...] different or (more content not included)... Normal [facility] ED Patient Summaryon 023 ED Patient Summary (Inserted Image. Lucie ble to display) [place] [id number] Patient Discharge Instructions Person Information Name: MITESH BURGESS Age: 42 Years Arrival Date: 03/14/2023 21:26:36 Discharge Diagnosis: 1:Migraine headache Primary Care Physician: Tae Alcazar MD Provider Information Primary Provider: Chandni Hart M.D. Advanced Family Practice Physician:None The exam and treatment you received in the Emergency Department were for an urgent problem and are not intended as complete care. It is important that you follow up with a doctor, nurse practitioner, or physician?s assistant corporate controller for ongoing care. If your symptoms become worse or you do not improve as expected and you are unable to reach your usual health care provider, you should return to the Emergency Department. We are available 24 hours a day. MITESH BURGESS has been given the following list of patient education materials, prescriptions and follow-up instructions: Follow-up Instructions: With: Address: When: Tae Alcazar [address] [place] [address], [address] [place] [phone] Business (1) In 3 days 03/18/2023 Comments: [...] opioids can be used to help relieve wtnksjkb-pb-mqkjoh pain and are often prescribed following a [...] be struggling with addiction, tell your health career coach and ask for stacie (more content not included)... [facility] Prescriptions/Work Noteson 0 03-15-2023 Prescriptions/Work Notes [id number]#1.00CD:1 27 [facility] Consent for Treatmenton Consent for Treatment [id number]#1.00CD:12 7 [facility] CNOVon 02-05-2023 CNOV Office Visit (NSCAMN ) ----- JENIFERMITESH Kendall ([id number]) 1980 F Date Time Provider Department 02/05/23 9:30 AM NATHANAEL RYAN During your visit today, we recorded the [...] No Does patient want to see a Occ Med Physician? No (yes to any of above refer [...] New Patient Consultation Referred by Stalin Reyes [address] [place] [id number] Diagnosis: skull hemangioma Subjective History of Present [...] 9.1 B (more content not included)... Normal [facility] MRI BRAIN WO/W IVCONon 01-24 MRI [...] skull mass, seen in the [facility] for: Dizziness, headache [...] and is most compatible with intraosseous hemangioma. Silhouette Artist: [facility] Transcribe Date/Time: Jan 24 2023 2:35P Dictated by : DONAL BURNS MD This examination was interpreted and the report reviewed and electronically signed by: DONAL BURNS MD on Jan 24 2023 2:42PM EST [id number] Normal [facility] Yumiko 12-18-2022 PEAR[place] Telephone ([facility]) ----- MITESH BURGESS ([id number]) 1980 F Date Time Provider Department 12/18/22 EDILBERTO TIRADO [facility] During your visit today, we recorded the following information about you: Edilberto Tirado RN 12/18/2022 4:55 PM Signed [facility] received prescription(s) for Emgality 120MG/ML auto-injectors (migraine). Benefits investigation was conducted, indicating that a prior authorization is required. PA was initiated and pending review through [employer]. All pertinent clinical information was submitted to insurance. [facility] Garcia: [id number] Ordering Provider: MD Celestino Etienne Alisha, STELLA [facility] P: , F: Edilberto Tirado RN 12/20/2022 3:59 PM Signed Ambulatory Pharmacy Prior Authorization Note Provider Intervention Required?: No- Pharmacy completed on your behalf. Rx Plan: Medicaid [facility] ([facility]) Drug: Emgality 120MG/ML auto-injectors (migraine) Cover My Meds Garcia: [id number] Determination: Approved Prior Authorization/Case #: n/a Prior [...] refills. Prescriptions will now be processed through [facility] for determination of next steps. For questions relating to this submission, please contact [facility] at [phone] Allergies As of Date: 12/18/2022 Noted Allergy Reaction ADHESIVE TAPE (ROSINS) 03/25/2018 9 - Itching CLINDAMYCIN 9 - Itching CODEINE 05/12/2015 16 - Unknown LATEX, NATURAL RUBBER 03/25/2018 9 - Itching SEASONAL ALLERGIES 05/12/2015 16 - Unknown Date Reviewed: 12/17/2022 Reviewed by: Mary Matta MA - Fully Assessed Reason for Visit: Insurance Authorization [1713] Cmt: Emgality 120MG/ML auto-injectors (migraine) Prescriptions as [...] Encounter Status:Closed by EDILBERTO TIRADO on 12/20/22 [facility] CNOVon 12-17-2022 CNOV Office Visit (NEADFV ) ----- MITESH BURGESS ([id number]) 1980 F Date Time Provider Department 12/17/22 1:30 PM STALIN REYES During your visit today, we recorded the following information about you: Pulse Blood pressure Weight Height 71/minute 103/72 101.2 kg 1.6 ky Reyes MD 12/17/2022 2:28 PM Signed [facility] Follow up/ Established patient visit Individuals who were included in, or assisted with the encounter were: Mitesh Kendall Jenifer Reyes MD Chief Complaint/Issues: Mitesh Burgess is a 42 year old R handed female w [facility] chronic migraine stopped Emgality half year ago, anxiety, depression, skull mass, seen in the [facility] for: Dizziness, headache [...] She ws restarted on seroquel 25mg recently. OS MRI 02/24/2022 1. Normal MRI appearance of [...] Assessment AND Plan 12/17/2022 - General Neurology, Satlin Reyes MD ASSESSMENT Mitesh Burgess is a 42 year old R handed female w PMH chronic migraine stopped Emgality half year ago, anxiety, depression, skull mass, seen in the [facility] for: 1. Dizziness, [...] without contra (more content not included)... 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 Normal [facility] Comment on above: Result Comment: Elec tronically Signed By: AMADOU Muller APRN, Yamile Barrera\.br\Date and Time Signed: 05/16/23 10:38 EDT Patient Educationon 11-21-19 23 Patient Education Nutrition BMI for Adults What [...] numbers. This can be done either in [place]ese ([place].S[place] or metric measurements. Note that charts and online BMI calculators are available to help you find your BMI quickly and easily without having to do these calculations yourself. To calculate your BMI in [place]olese ([place].S.) measurements: 1. Measure your weight in [...] for Disease Control and Prevention: www.cdc.gov ? [place] Heart Association: www.heart.org ? National Heart, Lung, and Blood [place]: www.nhlbi.nih.gov Summary ? Body mass index (BMI) is a number that is calculated from a person's weight and height. ? BMI may help estimate how much of a person's weight is composed of fat. BMI can help identify those who may be at higher risk for certain medical problems. ? BMI can be measured using Congolese measurements or metric measurements. ? BMI charts are used to identify whether you are underweight, normal weight, overweight, or obese. This information is not intended to replace advice given to you by your health care provider. Make sure you discuss any questions you have with your health care provider. Document Revised: 03/16/2020 Document Reviewed: 01/22/2020 [employer] Patient Education ? 2022 [employer]. Orthopedics Ankle Sprain, Phase I Rehab An [...] by your health care provider. Stretching and jzkvh-nh-crnsbu exercises These exercises warm up your muscles and joints and improve the movement and flexibility of you (more content not included)... Normal [facility] Patient Letter FTon 2022 Patient Letter [facility] (Inserted Image. Lucie ble to display) November 20, 2022 MITESH BURGESS [address] [place] [address] Please excuse MITESH BURGESS from work . Date and/or Time of Absence: 11/19/22 Restrictions: None Comments: Please excuse due to an acute illness. Provider Signature: Yamile Muller APRN, BOAT PAINTER-C Nurse Practitioner [address] [place] [address] [place] [address] Normal [facility] Office Visiton 10-13-2022 Follow-up visit [id number] Georgia Burgess 1980 F Date Provider Department Center 10/13/2022 EDUARDO BLAND MP ORTHO MPORTHO No family history on file Level of Service:71749 [place] OFFICE/OUTPATIENT ESTABLISHED MOD MDM 30-39 MIN (57,GC) Reason for Visit and Comments: Follow-up [341917] Normal [facility] CHEMISTRYOrdered By: SYSTEM SYSTEM on 09-20-2022 Albumin [Mass/Vol] 4.5 g/dL Normal 3.3 - 5.0 gm/dL FT Remisol Albumin/Globulin [Mass ratio] 1.3 {ratio} Normal [...] rate/Area] mL/min/1.73 m2 Normal >=59mL/min/ 1.73 m2 [facility] Chem S GFR/1.73 sq M.predicted among non-blacks MDRD (S/P/Bld) [Vol rate/Area] mL/min/1.73 m2 Normal >=59mL/min/ 1.73 m2 [facility] Chem S Globulin (S) [Mass/Vol] 3.4 g/dL [...] Normal 4.0 - 11.0 E9/L [facility] HemeAutoSS Office Visiton 08-28-2022 Follow-up visit [id number] Georgia Burgess 1980 F Date Provider Department Center [facility]20[facility] history on file Level of Service:72748 [place] OFFICE/OUTPATIENT NEW LOW MDM 30-44 MINUTES (25) Reason for Visit and Comments: Pain [136] Normal [facility] US KIDNEYSon 08-27-2022 US KIDNEYS [...] kidneys and bladder was performed by the film processing supervisor. Driver/Merchandiser static images are submitted for review. FINDINGS: [...] renal calculi. 3. No hydronephrosis. Normal [facility] Covid-19 PCR ([facility])on SARS-CoV-2 (COVID-19) RNA JAYNE+probe Ql (Unsp spec) Not detected Normal NOT DETECTED [facility] Comment on above: Result Comment: This test is not yet approved or cleared by the [place] FDA. When there are no FDA-approved or cleared tests available, and other criteria are met, FDA can make tests available under an emergency access mechanism called an Emergency Use Authorization (EUA). The EUA for this test is supported by the [place] of Health and Human Service's (HHS's) declaration [...] L IPID, URIC, CMP, T7, TSH #### [facility] [address] [place] [address] Dr. Alejandra Crystal INFLUENZA A AND B AGon [facility] SEE BELOW Normal [facility] Comment on above: Result Comment: Nega tive for Flu A protein angiten. Infection due to Flu A cannot be ruled out. Flu A angiten in the sample may be below the detection limit of the test. Performed By: #### O BSCRN #### [facility] [address] [place] [address] Dr. Alejandra Crystal INFLUBNEG SEE BELOW Normal [facility] Comment on above: Result Comment: Nega tive for Flu B protein antigen. Infection due to Flu B cannot be ruled out. Flu B antigen in the sample may be below the detection limit of the test. Performed By: #### O BSCRN #### [facility] [address] [place] [address] Dr. Alejandra Crystal INFLUENZA A AG Negative Normal NEGATIVE SEE COMMENT [facility] Comment on above: Performed By: #### O BSCRN #### [facility] [address] [place] [address] Dr. Alejandra Crystal INFLUENZA B AG Negative Normal NEGATIVE SEE COMMENT [facility] Comment on above: Performed By: #### O BSCRN #### [facility] [address] [place] [address] Dr. Alejandra Crystal MRI SHOULDER LT WO [...] by: CHAY MENDOZA Date: 2022-08-13 15:18 Normal [facility] XR ARTHRO SHOULDER LTon 02-0 XR ARTHRO [...] CHAY MENDOZA Date: 2022-08-13 15:07 Normal [facility] Covid-19 PCR ([facility])on 05-10 SARS-CoV-2 (COVID-19) RNA JAYNE+probe Ql (Unsp spec) Not detected Normal NOT DETECTED [facility] Comment on above: Result Comment: This test is not yet approved or cleared by the [place] FDA. When there are no FDA-approved or cleared tests available, and other criteria are met, FDA can make tests available under an emergency access mechanism called an Emergency Use Authorization (EUA). The EUA for this test is supported by the [place] of Health and Human Service's (HHS's) declaration [...] L IPID, URIC, CMP, T7, TSH #### [facility] [address] [place] [address] [address] Alejandra Crystal INFLUENZA A AND B AGon 06-06 INFLUANEGH SEE BELOW Normal [facility] Comment on above: Result Comment: Nega tive for Flu A protein angiten. Infection due to Flu A cannot be ruled out. Flu A angiten in the sample may be below the detection limit of the test. Performed By: #### I NFLUAB #### [facility] [address] [place] [address] Dr. Alejandra Crystal INFLUBNEG SEE BELOW Normal [facility] Comment on above: Result Comment: Nega tive for Flu B protein antigen. Infection due to Flu B cannot be ruled out. Flu B antigen in the sample may be below the detection limit of the test. Performed By: #### I NFLUAB #### [facility] [address] [place] [address] Dr. Alejandra Crystal INFLUENZA A AG Negative Normal NEGATIVE SEE COMMENT [facility] Comment on above: Performed By: #### I NFLUAB #### [facility] [address] [place] [address] Dr. Alejandra Crystal INFLUENZA B AG Negative Normal NEGATIVE SEE COMMENT [facility] Comment on above: Performed By: #### I NFLUAB #### [facility] [address] [place] [address] Dr. Alejandra Crystal INTERNAL CONTROLS Within Normal Limits Normal Wi thin Normal Limits [facility] Comment on above: Performed By: #### I NFLUAB #### [facility] [address] [place] [address] Dr. Alejandra Crystal MRI ABDOMEN WO W [...] CHAY MENDOZA Date: 2022-05-31 09:57 Normal [facility] INSULINon 05-30-2022 Insulin 23.8 uIU/mL Normal 2.6-24.9 [facility] Comment on above: Performed By: #### I NSULIN #### [facility] [address] [place] [address] Dr. Alejandra Crystal CBC AUTO DIFFon 05-29-2022 BASO # 0.0 103/ul Normal 0.0-0.1 [facility] Comment on above: Performed By: #### C BC #### [facility] [address] [address] [address] Alejandra Crystal Basophils/100 WBC (Bld) 0.6 % Normal 0.2-2.0 [facility] Comment on above: Performed By: #### C BC #### [facility] [address] [place] [address] Dr. Alejandra Crystal EO # 0.1 103/ul Normal 0.0-0.7 [facility] Comment on above: Performed By: #### C BC #### [facility] [address] [address] [address] Alejandra Crystal Eosinophils/100 WBC (Bld) 1.3 % Normal 0.9-7.0 [facility] Comment on above: Performed By: #### C BC #### [facility] [address] [place] [address] Dr. Alejandra Crystal Erythrocyte distribution width (RBC) [Ratio] 12.5 % Normal 11.0-15.0 [facility] Comment on above: Performed By: #### C BC #### [facility] [address] [place] [address] Dr. Alejandra Crystal Hematocrit (Bld) [Volume fraction] 41.2 % Normal 36.0-48.0 [facility] Comment on above: Performed By: #### C BC #### [facility] [address] [place] [address] Dr. Alejandra Crystal Hemoglobin (Bld) [Mass/Vol] 14.4 g/dL Normal 12.0-16.0 [facility] Comment on above: Performed By: #### C BC #### [facility] [address] [place] [address] Dr. Alejandra Crystal IG # 0.02 10e3/ul Normal 0.00-0.03 [facility] Comment on above: Performed By: #### C BC #### [facility] [address] [place] [address] Dr. Alejandra Crystal IG % 0.3 % Normal 0.0-0.5 [facility] Comment on above: Performed By: #### C BC #### [facility] [address] [place] [address] Dr. Alejandra Crystal LYMPH # 2.1 103/ul Normal 1.2-3.8 [facility] Comment on above: Performed By: #### C BC #### [facility] [address] [place] [address] Dr. Alejandra Crystal Lymphocytes/100 WBC (Bld) 32.5 % Normal 20.5-60.0 [facility] Comment on above: Performed By: #### C BC #### [facility] [address] [place] [address] Dr. Alejandra Crystal MANUAL DIFF REQ NO Normal [facility] Comment on above: Performed By: #### C BC #### [facility] [address] [place] [address] Dr. Alejandra Crystal MCH (RBC) [Entitic mass] 32.1 pg Normal 26.7-34.0 [facility] Comment on above: Performed By: #### C BC #### [facility] [address] [address] [address] Alejandra Crystal MCHC (RBC) [Mass/Vol] 35.0 g/dL Normal 29.9-35.2 [facility] Comment on above: Performed By: #### C BC #### [facility] [address] [address] [address] Alejandra Crystal MCV (RBC) [Entitic vol] 91.8 fL Normal 81.0-99.0 [facility] Comment on above: Performed By: #### C BC #### [facility] [address] [address] [address] Alejandra Crystal MONO # 0.6 103/ul Normal 0.3-0.8 [facility] Comment on above: Performed By: #### C BC #### [facility] [address] [place] [address] Dr. Alejandra Crystal Monocytes/100 WBC (Bld) 8.6 % Normal 1.7-12.0 [facility] Comment on above: Performed By: #### C BC #### [facility] [address] [address] [address] Alejandra Crystal NEUT # 3.6 103/ul Normal 1.4-6.5 [facility] Comment on above: Performed By: #### C BC #### [facility] [address] [address] [address] Alejandra Crystal Neutrophils/100 WBC (Bld) 56.7 % Normal 43.0-75.0 [facility] Comment on above: Performed By: #### C BC #### [facility] [address] [address] [address] Alejandra Crystal Platelet mean volume (Bld) [Entitic vol] 9.4 fL Critically low 9.5-13.5 [facility] Comment on above: Performed By: #### C BC #### [facility] [address] [address] [address] Alejandra Crystal PLT 294 103/ul Normal 150-450 [facility] Comment on above: Performed By: #### C BC #### [facility] [address] [place] [address] Dr. Alejandra Crystal RBC 4.49 106/ul Normal 4.20-5.40 [facility] Comment on above: Performed By: #### C BC #### [facility] [address] [place] [address] Dr. Alejandra Crystal WBC 6.4 103/ul Normal 4.0-11.0 [facility] Comment on above: Performed By: #### C BC #### [facility] [address] [place] [address] Dr. Alejandra Crystal FREE THYROXINE INDEX T7on FTI 1.78 Normal 1.30-4.50 [facility] Comment on above: Performed By: #### L IPID, URIC, CMP, T7, TSH #### [facility] [address] [place] [address] Dr. Alejandra Crystal T3U 33.0 % Normal 30.0-39.0 [facility] Comment on above: Performed By: #### L IPID, URIC, CMP, T7, TSH #### [facility] [address] [place] [address] Dr. Alejandra Crystal T4 [Mass/Vol] 5.40 ug/dL Normal 4.80-13.90 [facility] Comment on above: Performed By: #### L IPID, URIC, CMP, T7, TSH #### [facility] [address] [place] [address] Dr. Alejandra Crystal GLYCOHEMOGLOBIN A1Con 2021 ADA RECOMMENDATION SEE BELOW Normal [facility] Comment on above: Result Comment: ADA RECOMMENDED LIMIT 4.0 - 6.0 ADA THERAPEUTIC TARGET < 7.0 ACTION SUGGESTED > 7.0 Performed By: #### O BSCRN #### [facility] [address] [place] [address] Dr. Alejandra Crystal Glucose [Mass/Vol] 94 mg/dL Normal [facility] Comment on above: Performed By: #### O BSCRN #### [facility] [address] [place] [address] Dr. Alejandra Crystal HbA1c (Bld) [Mass fraction] 4.9 % Normal 4.5-6.2 [facility] Comment on above: Performed By: #### O BSCRN #### [facility] [address] [address] [address] Alejandra Crystal IRONon 05-29-2022 Iron [Mass/Vol] 74.0 ug/dL Normal 50.0-170.0 [facility] Comment on above: Performed By: #### I NFLUAB #### [facility] [address] [place] [address] Dr. Alejandra Crystal LIPID PROFILEon 05-29-2022 CHOL-HDL RATIO NORM SEE BELOW Normal [facility] Comment on above: Result Comment: 3.3 - 4.4 LOW RISK 4.4 - 7.1 AVERAGE RISK 7.1 - 11.0 MODERATE RISK >11.0 HIGH RISK Performed By: #### L IPID, URIC, CMP, T7, TSH #### [facility] [address] [address] [address] Alejandra Crystal Cholesterol [Mass/Vol] 127 mg/dL Normal <=200 [facility] Comment on above: Performed By: #### L IPID, URIC, CMP, T7, TSH #### [facility] [address] [address] [address] Alejandra Crystal Cholesterol in HDL [Mass/Vol] 33 mg/dL Critically low 40-60 [facility] Comment on above: Performed By: #### L IPID, URIC, CMP, T7, TSH #### [facility] [address] [address] [address] Alejandra Crystal Cholesterol in LDL [Mass/Vol] 60.4 mg/dL Normal [facility] Comment on above: Performed By: #### L IPID, URIC, CMP, T7, TSH #### [facility] [address] [address] [address] Alejandra Crystal Cholesterol.total/Cho lesterol in HDL [Mass ratio] 3.8 {ratio} Normal [facility] Comment on above: Performed By: #### L IPID, URIC, CMP, T7, TSH #### [facility] [address] [address] [address] Alejandra Crystal HDL NORMAL > or = 60 mg/dl - LO W CARDIOVASCULAR RISK <40 mg/dl - HIGH CARDIOVASCULAR RISK Normal [facility] Comment on above: Performed By: #### L IPID, URIC, CMP, T7, TSH #### [facility] [address] [address] [address] Alejandra Crystal LDL CALC NORMAL SEE BELOW Normal [facility] Comment on above: Result Comment: <100 mg/dl OPTIMAL 100 - 129 mg/dl NEAR OR ABOVE OPTIMAL 130 - 159 mg/dl BORDERLINE HIGH 160 - 189 mg/dl HIGH >190 mg/dl VERY HIGH Performed By: #### L IPID, URIC, CMP, T7, TSH #### [facility] [address] [address] [address] Alejandra Crystal Triglyceride [Mass/Vol] 168 mg/dL Critically high <=150 [facility] Comment on above: Performed By: #### L IPID, URIC, CMP, T7, TSH #### [facility] [address] [address] [address] Alejandra Crystal VLDL CALC 33.6 mg/dL Normal [facility] Comment on above: Performed By: #### L IPID, URIC, CMP, T7, TSH #### [facility] [address] [address] [address] Alejandra Crystal PROF 14(COMP METB)on 022 Albumin [Mass/Vol] 3.8 g/dL Normal 3.4-5.0 [facility] Comment on above: Performed By: #### L IPID, URIC, CMP, T7, TSH #### [facility] [address] [address] [address] Alejandra Crystal Albumin/Globulin [Mass ratio] 1.2 {ratio} Normal [facility] Comment on above: Performed By: #### L IPID, URIC, CMP, T7, TSH #### [facility] [address] [address] [address] Alejandra Crystal ALP [Catalytic activity/Vol] 111 U/L Normal 46-116 [facility] Comment on above: Performed By: #### L IPID, URIC, CMP, T7, TSH #### [facility] [address] [place] [address] Dr. Alejandra Crystal ALT [Catalytic activity/Vol] 18 U/L Normal 14-59 [facility] Comment on above: Performed By: #### L IPID, URIC, CMP, T7, TSH #### [facility] [address] [place] [address] Dr. Alejandra Crystal Anion gap [Moles/Vol] 14.9 mmol/L Normal [facility] Comment on above: Performed By: #### L IPID, URIC, CMP, T7, TSH #### [facility] [address] [place] [address] Dr. Alejandra Crystal AST [Catalytic activity/Vol] 11 U/L Critically low 15-37 [facility] Comment on above: Performed By: #### L IPID, URIC, CMP, T7, TSH #### [facility] [address] [place] [address] Dr. Alejandra Crystal Bilirubin [Mass/Vol] 0.3 mg/dL Normal 0.2-1.0 [facility] Comment on above: Performed By: #### L IPID, URIC, CMP, T7, TSH #### [facility] [address] [place] [address] Dr. Alejandra Crystal Calcium [Mass/Vol] 8.9 mg/dL Normal 8.5-10.1 [facility] Comment on above: Performed By: #### L IPID, URIC, CMP, T7, TSH #### [facility] [address] [place] [address] Dr. Alejandra Crystal Chloride [Moles/Vol] 107 mmol/L Normal 98-107 [facility] Comment on above: Performed By: #### L IPID, URIC, CMP, T7, TSH #### [facility] [address] [place] [address] Dr. Alejandra Crystal CO2 [Moles/Vol] 22.3 mmol/L Normal 21.0-32.0 [facility] Comment on above: Performed By: #### L IPID, URIC, CMP, T7, TSH #### [facility] [address] [place] [address] Dr. Alejandra Crystal Creatinine [Mass/Vol] 0.82 mg/dL Normal 0.55-1.02 [facility] Comment on above: Performed By: #### L IPID, URIC, CMP, T7, TSH #### [facility] [address] [place] [address] Dr. Alejandra Crytsal EGFR-AF AFGHAN >60 Normal >=60 [facility] Comment on above: Performed By: #### L IPID, URIC, CMP, T7, TSH #### [facility] [address] [place] [address] Dr. Alejandra Crystal EGFR-NON AF AFGHAN >60 Normal >=60 [facility] Comment on above: Performed By: #### L IPID, URIC, CMP, T7, TSH #### [facility] [address] [place] [address] Dr. Alejandra Crystal Globulin (S) [Mass/Vol] 3.3 g/dL Normal [facility] Comment on above: Performed By: #### L IPID, URIC, CMP, T7, TSH #### [facility] [address] [place] [address] Dr. Alejandra Crystal Glucose [Mass/Vol] 91 mg/dL Normal 74-106 [facility] Comment on above: Performed By: #### L IPID, URIC, CMP, T7, TSH #### [facility] [address] [place] [address] Dr. Alejandra Crystal Potassium [Moles/Vol] 4.2 mmol/L Normal 3.5-5.1 [facility] Comment on above: Performed By: #### L IPID, URIC, CMP, T7, TSH #### [facility] [address] [place] [address] Dr. Alejandra Crystal Protein [Mass/Vol] 7.1 g/dL Normal 6.4-8.2 [facility] Comment on above: Performed By: #### L IPID, URIC, CMP, T7, TSH #### [facility] [address] [place] [address] Dr. Alejandra Crystal Sodium [Moles/Vol] 140 mmol/L Normal 136-145 [facility] Comment on above: Performed By: #### L IPID, URIC, CMP, T7, TSH #### [facility] [address] [place] [address] Dr. Alejandra Crystal Urea nitrogen [Mass/Vol] 14.0 mg/dL Normal 7.0-18.0 [facility] Comment on above: Performed By: #### L IPID, URIC, CMP, T7, TSH #### [facility] [address] [place] [address] Dr. Alejandra Crystal Urea nitrogen/Creatinine [Mass ratio] 17.1 mg/mg Normal [facility] Comment on above: Performed By: #### L IPID, URIC, CMP, T7, TSH #### [facility] [address] [place] [address] Dr. Alejandra Crystal TSHon 05-29-2022 TSH 0.767 uIU/mL Normal 0.358-3.[address] [facility] Comment on above: Performed By: #### L IPID, URIC, CMP, T7, TSH #### [facility] [address] [place] [address] Dr. Alejandra Crystal URIC ACID SERUMon 05-29-2022 Urate [Mass/Vol] 3.4 mg/dL Normal 2.6-6.0 [facility] Comment on above: Performed By: #### L IPID, URIC, CMP, T7, TSH #### [facility] [address] [place] [address] Dr. Alejandra Crystal VITAMIN D 25 OHon 05-29-2022 VIT D 25-OH 16.2 ng/mL Normal [facility] Comment on above: Performed By: #### I NFLUAB #### [facility] [address] [place] [address] Dr. Alejandra Crystal VIT D RANGES SEE BELOW Normal [facility] Comment on above: Result Comment: <20 ng/mL Vit D deficient 20 - <30 ng/mL Vit D insufficient 30 - 100 ng/mL Vit D sufficient >100 ng/mL Potential Toxicity Performed By: #### I NFLUAB #### [facility] [address] [address] [address] Alejandra Crystal MRI BRAIN WO W [...] are clear. The flow voids of the [place] are visualized, implying that the [...] TEZ CUBA Date: 2022-05-17 23:20 Normal [facility] US SINGLE QUAD RT UPPERon US [...] LETY TAN Date: 2022-05-15 14:53 Normal [facility] COAGULATIONOrdered By: Nacho Mcguire on 04-23-2022 [...] mmol/L Normal 101 - 1 11 mmol/L [facility] CO2 [Moles/Vol] 20 mmol/L Low 21 - 31 mmol/L [facility] Creatinine [Mass/Vol] 0.9 mg/dL Normal 0.5 - 1.3 mg/dL [facility] Remisol GFR/1.73 sq M.predicted among blacks MDRD (S/P/Bld) [Vol rate/Area] mL/min/1.73 m2 Normal >=59mL/min/ 1.73 m2 [facility] Chem S GFR/1.73 sq M.predicted among non-blacks MDRD (S/P/Bld) [Vol rate/Area] mL/min/1.73 m2 Normal >=59mL/min/ 1.73 m2 [facility] Chem S Glucose [Mass/Vol] 102 mg/dL Normal 55 - 199 mg/dL [facility] Remisol Potassium [Moles/Vol] 3.6 mmol/L Normal 3.5 - 5.3 mmol/L [facility] Remisol Sodium [Moles/Vol] 135 mmol/L Normal 135 - 145 mmol/L [facility] Urea nitrogen [Mass/Vol] 12 mg/dL Normal 5 - 21 mg/dL [facility] Remisol Urea nitrogen/Creatinine [Mass ratio] 13 mg/mg Normal 10 - 20 [facility] Remisol CHEMISTRYOrdered By: Lab ROP User on 04-11-2022 Glucose [Mass/Vol] 123 mg/dL High 55 - 99 mg/dL [facility] POC Subsection Comment on above: Result Comment: Madelaine toro RN/ POC Device SN [id number] Invalid Interpretation Code [facility] POC Subsection POC User ID [id number] Invalid Interpretation Code [facility] POC Subsection POC Username KELLY CHELE Invalid Interpretation Code [facility] POC Subsection HEMATOLOGYOrdered By: SYSTEM SYSTEM on [...] 8.1 E9/L Normal 4.0 - 11.0 E9/L [facility] HemeAutoSS CT HEAD WO W CONon 2 CT HEAD WO W CON Begin Addendum # 1 The left cerebellar tonsil lies below the foramen magnum, the exact level cannot be determined as this extends off the image [id number]. IMPRESSION: Low lying left cerebellar tonsil Original [...] abnormal postcontrast enhancement Limited exam with poor [id number] ratio, this is particularly on the postcontrast images IMPRESSION: Limited exam, no acute abnormality observed Normal [facility] CBC AUTO DIFFon 03-29-2022 BASO # 0.0 103/ul Normal 0.0-0.1 [facility] Comment on above: Performed By: #### C BC #### [facility] [address] [place] [address] Dr. Alejandra Crystal Basophils/100 WBC (Bld) 0.4 % Normal 0.2-2.0 [facility] Comment on above: Performed By: #### C BC #### [facility] [address] [address] [address] Alejandra Crystal EO # 0.0 103/ul Normal 0.0-0.7 [facility] Comment on above: Performed By: #### C BC #### [facility] [address] [address] [address] Alejandra Crystal Eosinophils/100 WBC (Bld) 0.6 % Critically low 0.9-7.0 [facility] Comment on above: Performed By: #### C BC #### [facility] [address] [place] [address] Dr. Alejandra Crystal Erythrocyte distribution width (RBC) [Ratio] 13.0 % Normal 11.0-15.0 [facility] Comment on above: Performed By: #### C BC #### [facility] [address] [place] [address] Dr. Alejandra Crystal Hematocrit (Bld) [Volume fraction] 42.0 % Normal 36.0-48.0 [facility] Comment on above: Performed By: #### C BC #### [facility] [address] [place] [address] Dr. Alejandra Crystal Hemoglobin (Bld) [Mass/Vol] 14.3 g/dL Normal 12.0-16.0 [facility] Comment on above: Performed By: #### C BC #### [facility] [address] [place] [address] Dr. Alejandra Crystal IG # 0.04 10e3/ul Critically high 0.00-0.03 [facility] Comment on above: Performed By: #### C BC #### [facility] [address] [place] [address] Dr. Alejandra Crystal IG % 0.6 % Critically high 0.0-0.5 [facility] Comment on above: Performed By: #### C BC #### [facility] [address] [place] [address] Dr. Alejandra Crystal LYMPH # 2.5 103/ul Normal 1.2-3.8 [facility] Comment on above: Performed By: #### C BC #### [facility] [address] [place] [address] Dr. Alejandra Crystal Lymphocytes/100 WBC (Bld) 34.9 % Normal 20.5-60.0 [facility] Comment on above: Performed By: #### C BC #### [facility] [address] [place] [address] Dr. Alejandra Crystal MANUAL DIFF REQ NO Normal [facility] Comment on above: Performed By: #### C BC #### [facility] [address] [address] [address] Alejandra Crystal MCH (RBC) [Entitic mass] 31.4 pg Normal 26.7-34.0 [facility] Comment on above: Performed By: #### C BC #### [facility] [address] [address] [address] Alejandra Crystal MCHC (RBC) [Mass/Vol] 34.0 g/dL Normal 29.9-35.2 [facility] Comment on above: Performed By: #### C BC #### [facility] [address] [address] [address] Aleajndra Crystal MCV (RBC) [Entitic vol] 92.1 fL Normal 81.0-99.0 [facility] Comment on above: Performed By: #### C BC #### [facility] [address] [place] [address] Dr. Alejandra Crystal MONO # 0.6 103/ul Normal 0.3-0.8 [facility] Comment on above: Performed By: #### C BC #### [facility] [address] [place] [address] Dr. Alejandra Crystal Monocytes/100 WBC (Bld) 8.7 % Normal 1.7-12.0 [facility] Comment on above: Performed By: #### C BC #### [facility] [address] [place] [address] Dr. Alejandra Crystal NEUT # 4.0 103/ul Normal 1.4-6.5 [facility] Comment on above: Performed By: #### C BC #### [facility] [address] [place] [address] Dr. Alejandra Crystal Neutrophils/100 WBC (Bld) 54.8 % Normal 43.0-75.0 [facility] Comment on above: Performed By: #### C BC #### [facility] [address] [place] [address] Dr. Alejandra Crystal Platelet mean volume (Bld) [Entitic vol] 9.8 fL Normal 9.5-13.5 [facility] Comment on above: Performed By: #### C BC #### [facility] [address] [place] [address] Dr. Alejandra Crystal PLT 274 103/ul Normal 150-450 [facility] Comment on above: Performed By: #### C BC #### [facility] [address] [place] [address] Dr. Alejandra Crystal RBC 4.56 106/ul Normal 4.20-5.40 [facility] Comment on above: Performed By: #### C BC #### [facility] [address] [place] [address] Dr. Alejandra Crystal WBC 7.2 103/ul Normal 4.0-11.0 [facility] Comment on above: Performed By: #### C BC #### [facility] [address] [place] [address] Dr. Alejandra Crystal ER URINE PROFILEon 2 Bilirubin Ql (U) Negative Normal NEGATIVE [facility] Comment on above: Performed By: #### O BSCRN #### [facility] [address] [place] [address] Dr. Alejandra Crystal Clarity (U) CLEAR Normal CLEAR [facility] Comment on above: Performed By: #### O BSCRN #### [facility] [address] [place] [address] Dr. Alejandra Crystal Color (U) YELLOW Normal YELLOW [facility] Comment on above: Performed By: #### O BSCRN #### [facility] [address] [place] [address] Dr. Alejandra Crystal ERUMARGIE A micrscopic examina tion will be performed if indicated. Normal [facility] Comment on above: Performed By: #### O BSCRN #### [facility] [address] [place] [address] Dr. Alejandra Crystal Glucose Ql (U) Negative Normal NEGATIVE [facility] Comment on above: Performed By: #### O BSCRN #### [facility] [address] [place] [address] Dr. Alejandra Crystal Hemoglobin Ql (U) Negative Normal NEGATIVE [facility] Comment on above: Performed By: #### O BSCRN #### [facility] [address] [address] [address] Alejandra Crystal Ketones Ql (U) Negative Normal NEGATIVE [facility] Comment on above: Performed By: #### O BSCRN #### [facility] [address] [place] [address] Dr. Alejandra Crystal LEUKOCYTES Negative Normal NEGATIVE [facility] Comment on above: Performed By: #### O BSCRN #### [facility] [address] [address] [address] Alejandra Crystal Nitrite Ql (U) Negative Normal NEGATIVE [facility] Comment on above: Performed By: #### O BSCRN #### [facility] [address] [place] [address] Dr. Alejandra Crystal pH (U) 6.0 [pH] Normal 5-9 [facility] Comment on above: Performed By: #### O BSCRN #### [facility] [address] [place] [address] Dr. Alejandra Crystal SPEC GRAVITY >=1.030 Abnormal 1.005-<=1.0 25 [facility] Comment on above: Performed By: #### O BSCRN #### [facility] [address] [place] [address] Dr. Alejandra Crystal UA PROTEIN Negative Normal NEGATIVE/ TRACE [facility] Comment on above: Performed By: #### O BSCRN #### [facility] [address] [address] [address] Alejandra Crystal UR MICRO IND NOT INDICATED Normal [facility] Comment on above: Performed By: #### O BSCRN #### [facility] [address] [place] [address] Dr. Alejandra Crystal Urobilinogen Qn (U) 0.2 {Ernst'U}/dL Normal 0.2 - 1. 0 [facility] Comment on above: Performed By: #### O BSCRN #### [facility] [address] [place] [address] Dr. Alejandra Crystal MAGNESIUMon 03-29-2022 Magnesium [Mass/Vol] 2.1 mg/dL Normal 1.8-2.4 [facility] Comment on above: Performed By: #### I NFLUAB #### [facility] [address] [address] [address] Alejandra Crystal PREG HCG QUALon 03-29-2022 , QUAL Negative Normal NEGATIVE [facility] Comment on above: Performed By: #### I NSULIN #### [facility] [address] [address] [address] Alejandra Crystal PROF 14(COMP METB)on 022 Albumin [Mass/Vol] 3.7 g/dL Normal 3.4-5.0 [facility] Comment on above: Performed By: #### I NFLUAB #### [facility] [address] [place] [address] Dr. Alejandra Crystal Albumin/Globulin [Mass ratio] 1.2 {ratio} Normal [facility] Comment on above: Performed By: #### I NFLUAB #### [facility] [address] [address] [address] Alejandra Crystal ALP [Catalytic activity/Vol] 120 U/L Critically high 46-116 [facility] Comment on above: Performed By: #### I NFLUAB #### [facility] [address] [address] [address] Alejandra Crystal ALT [Catalytic activity/Vol] 23 U/L Normal 14-59 [facility] Comment on above: Performed By: #### I NFLUAB #### [facility] [address] [address] [address] Alejandra Crystal Anion gap [Moles/Vol] 12.6 mmol/L Normal [facility] Comment on above: Performed By: #### I NFLUAB #### [facility] [address] [address] [address] Alejandra Crystal AST [Catalytic activity/Vol] 14 U/L Critically low 15-37 [facility] Comment on above: Performed By: #### I NFLUAB #### [facility] [address] [address] [address] Alejandra Crystal Bilirubin [Mass/Vol] 0.4 mg/dL Normal 0.2-1.0 [facility] Comment on above: Performed By: #### I NFLUAB #### [facility] [address] [address] [address] Alejandra Crystal Calcium [Mass/Vol] 9.0 mg/dL Normal 8.5-10.1 [facility] Comment on above: Performed By: #### I NFLUAB #### [facility] [address] [address] [address] Alejandra Crystal Chloride [Moles/Vol] 109 mmol/L Critically high 98-107 [facility] Comment on above: Performed By: #### I NFLUAB #### [facility] [address] [place] [address] Dr. Alejandra Crystal CO2 [Moles/Vol] 21.2 mmol/L Normal 21.0-32.0 [facility] Comment on above: Performed By: #### I NFLUAB #### [facility] [address] [place] [address] Dr. Alejandra Crystal Creatinine [Mass/Vol] 0.93 mg/dL Normal 0.55-1.02 [facility] Comment on above: Performed By: #### I NFLUAB #### [facility] [address] [place] [address] Dr. Alejandra Crystal EGFR-AF AFGHAN Normal >=60 [facility] Comment on above: Performed By: #### I NFLUAB #### [facility] [address] [place] [address] Dr. Alejandra Crystal EGFR-NON AF AFGHAN Normal >=60 [facility] Comment on above: Performed By: #### I NFLUAB #### [facility] [address] [place] [address] Dr. Alejandra Crystal Globulin (S) [Mass/Vol] 3.2 g/dL Normal [facility] Comment on above: Performed By: #### I NFLUAB #### [facility] [address] [place], [place] [id number] Dr. Alejandra Crystal Glucose [Mass/Vol] 100 mg/dL Normal 74-106 [facility] Comment on above: Performed By: #### I NFLUAB #### [facility] [address] [address] [address] Alejandra Crystal Potassium [Moles/Vol] 2.8 mmol/L Critically low 3.5-5.1 [facility] Comment on above: Performed By: #### I NFLUAB #### [facility] [address] [place] [address] Dr. Alejandra Crystal Protein [Mass/Vol] 6.9 g/dL Normal 6.4-8.2 [facility] Comment on above: Performed By: #### I NFLUAB #### [facility] [address] [place] [address] Dr. Alejandra Crystal Sodium [Moles/Vol] 140 mmol/L Normal 136-145 [facility] Comment on above: Performed By: #### I NFLUAB #### [facility] [address] [place] [address] Dr. Alejandra Crystal Urea nitrogen [Mass/Vol] 16.0 mg/dL Normal 7.0-18.0 [facility] Comment on above: Performed By: #### I NFLUAB #### [facility] [address] [place] [address] Dr. Alejandra Crystal Urea nitrogen/Creatinine [Mass ratio] 17.2 mg/mg Normal [facility] Comment on above: Performed By: #### I NFLUAB #### [facility] [address] [place] [address] Dr. Alejandra Crystal TROPONIN, HIGH SENSITIVITYon 03-29-2022 HSTROP 5.2 pg/mL Normal 4.0-51.3 [facility] Comment on above: Result Comment: CUT- OFF POINTS HAVE BEEN ESTABLISHED BASED ON THE FOURTH UNIVERSAL DEFINITIONS OF MYOCARDIAL INFARCTION. THE UPPER REFERENCE LIMIT (URL) OF TROPONIN, DEFINED THE 99TH PERCENTILE OF cTnI DISTRIBUTION IN A REFERENCE POPULATION, HAS BEEN CONFIRMED THE DECISION THRESHOLD FOR [place] DIAGNOSIS. Performed By: #### I NFLUAB #### [facility] [address] [place] [id number] [address] Alejandra Crystal [facility]on [facility]-08 SARS-CoV-2 (COVID-19) RNA JAYNE+probe Ql (Unsp spec) Not detected Normal NOT DETECTED [facility] Comment on above: Result Comment: This test is not yet approved or cleared by the [place] FDA. When there are no FDA-approved or cleared tests available, and other criteria are met, FDA can make tests available under an emergency access mechanism called an Emergency Use Authorization (EUA). The EUA for this test is supported by the [place] of Health and Human Service's (HHS's) declaration [...] L IPID, URIC, CMP, T7, TSH #### [facility] [address] [place] [address] [id number] [address] Alejandra Crystal MRI BRAIN WO W [...] CHAY MENDOZA Date: 2022-03-06 07:26 Normal [facility] CHEMISTRYOrdered By: SYSTEM SYSTEM on 02-21-2022 T4 [Mass/Vol] 5.1 ug/dL Normal 4.6 - 9.1 mcg/dL [facility] Remisol TSH Qn 0.20 m[IU]/L Low 0.34 - 5.60 mcIU/mL [facility] Remisol Covid-19 PCR (CVDTB)on 01-06 SARS-CoV-2 (COVID-19) RNA JAYNE+probe Ql (Unsp spec) Not detected Normal NOT DETECTED [facility] Comment on above: Result Comment: When [...] for this test is supported by the [place] of Health and Human Service's declaration that [...] used). Performed By: #### I NFLUAB #### [facility] [address] [place] [address] Dr. Alejandra Crystal CBC AUTO DIFFon 01-01-2022 BASO # 0.0 103/ul Normal 0.0-0.1 [facility] Comment on above: Performed By: #### O BSCRN #### [facility] [address] [place] [address] Dr. Alejandra Crystal Basophils/100 WBC (Bld) 0.7 % Normal 0.2-2.0 [facility] Comment on above: Performed By: #### O BSCRN #### [facility] [address] [place] [address] Dr. Alejandra Crystal EO # 0.1 103/ul Normal 0.0-0.7 [facility] Comment on above: Performed By: #### O BSCRN #### [facility] [address] [place] [address] Dr. Alejandra Crystal Eosinophils/100 WBC (Bld) 1.1 % Normal 0.9-7.0 [facility] Comment on above: Performed By: #### O BSCRN #### [facility] [address] [place] [address] Dr. Alejandra Crystal Erythrocyte distribution width (RBC) [Ratio] 13.1 % Normal 11.0-15.0 [facility] Comment on above: Performed By: #### O BSCRN #### [facility] [address] [place] [address] Dr. Alejandra Crystal Hematocrit (Bld) [Volume fraction] 43.4 % Normal 36.0-48.0 [facility] Comment on above: Performed By: #### O BSCRN #### [facility] [address] [place] [address] Dr. Alejandra Crystal Hemoglobin (Bld) [Mass/Vol] 14.5 g/dL Normal 12.0-16.0 [facility] Comment on above: Performed By: #### O BSCRN #### [facility] [address] [place] [address] Dr. Alejandra Crystal IG # 0.02 10e3/ul Normal 0.00-0.03 [facility] Comment on above: Performed By: #### O BSCRN #### [facility] [address] [place] [address] Dr. Alejandra Crystal IG % 0.4 % Normal 0.0-0.5 [facility] Comment on above: Performed By: #### O BSCRN #### [facility] [address] [place] [address] Dr. Alejandra Crystal LYMPH # 1.9 103/ul Normal 1.2-3.8 [facility] Comment on above: Performed By: #### O BSCRN #### [facility] [address] [place] [address] Dr. Alejandra Crystal Lymphocytes/100 WBC (Bld) 34.1 % Normal 20.5-60.0 [facility] Comment on above: Performed By: #### O BSCRN #### [facility] [address] [place] [address] Dr. Alejandra Crystal MANUAL DIFF REQ NO Normal [facility] Comment on above: Performed By: #### O BSCRN #### [facility] [address] [place] [address] Dr. Alejandra Crystal MCH (RBC) [Entitic mass] 30.9 pg Normal 26.7-34.0 [facility] Comment on above: Performed By: #### O BSCRN #### [facility] [address] [place] [address] Dr. Alejandra Crystal MCHC (RBC) [Mass/Vol] 33.4 g/dL Normal 29.9-35.2 [facility] Comment on above: Performed By: #### O BSCRN #### [facility] [address] [place] [address] Dr. Alejandra Crystal MCV (RBC) [Entitic vol] 92.5 fL Normal 81.0-99.0 [facility] Comment on above: Performed By: #### O BSCRN #### [facility] [address] [place] [address] Dr. Alejandra Crystal MONO # 0.4 103/ul Normal 0.3-0.8 [facility] Comment on above: Performed By: #### O BSCRN #### [facility] [address] [address] [address] Alejandra Crystal Monocytes/100 WBC (Bld) 7.7 % Normal 1.7-12.0 [facility] Comment on above: Performed By: #### O BSCRN #### [facility] [address] [address] [address] Alejandra Crystal NEUT # 3.0 103/ul Normal 1.4-6.5 [facility] Comment on above: Performed By: #### O BSCRN #### [facility] [address] [address] [address] Alejandra Crystal Neutrophils/100 WBC (Bld) 56.0 % Normal 43.0-75.0 [facility] Comment on above: Performed By: #### O BSCRN #### [facility] [address] [place] [address] Dr. Alejandra Crystal Platelet mean volume (Bld) [Entitic vol] 9.4 fL Critically low 9.5-13.5 [facility] Comment on above: Performed By: #### O BSCRN #### [facility] [address] [place] [address] Dr. Alejandra Crystal PLT 313 103/ul Normal 150-450 [facility] Comment on above: Performed By: #### O BSCRN #### [facility] [address] [place] [address] Dr. Alejandra Crystal RBC 4.69 106/ul Normal 4.20-5.40 [facility] Comment on above: Performed By: #### O BSCRN #### [facility] [address] [place] [address] Dr. Alejandra Crystal WBC 5.4 103/ul Normal 4.0-11.0 [facility] Comment on above: Performed By: #### O BSCRN #### [facility] [address] [place] [address] Dr. Alejandra Crystal FREE T3on 01-01-2022 FREE T3 4.72 pg/mlL Critically high 2.18-3.98 [facility] Comment on above: Performed By: #### L IPID, URIC, CMP, T7, TSH #### [facility] [address] [address] [address] Alejandra Crystal FREE THYROXINE INDEX T7on FTI 1.25 Critically low 1.30-4.50 [facility] Comment on above: Performed By: #### L IPID, URIC, CMP, T7, TSH #### [facility] [address] [address] [address] Alejandra Crystal T3U 32.0 % Normal 30.0-39.0 [facility] Comment on above: Performed By: #### L IPID, URIC, CMP, T7, TSH #### [facility] [address] [address] [address] Alejandra Crystal T4 [Mass/Vol] 3.90 ug/dL Critically low 4.80-13.90 [facility] Comment on above: Performed By: #### L IPID, URIC, CMP, T7, TSH #### [facility] [address] [address] [address] Alejandra Crystal PROF 14(COMP METB)on 022 Albumin [Mass/Vol] 3.8 g/dL Normal 3.4-5.0 [facility] Comment on above: Performed By: #### L IPID, URIC, CMP, T7, TSH #### [facility] [address] [address] [address] Alejandra Crystal Albumin/Globulin [Mass ratio] 11.4 {ratio} Normal [facility] Comment on above: Performed By: #### L IPID, URIC, CMP, T7, TSH #### [facility] [address] [address] [address] Alejandra Crystal ALP [Catalytic activity/Vol] 123 U/L Critically high 46-116 [facility] Comment on above: Performed By: #### L IPID, URIC, CMP, T7, TSH #### [facility] [address] [address] [address] Alejandra Crystal ALT [Catalytic activity/Vol] 27 U/L Normal 14-59 [facility] Comment on above: Performed By: #### L IPID, URIC, CMP, T7, TSH #### [facility] [address] [address] [address] Alejandra Crystal Anion gap [Moles/Vol] 11.5 mmol/L Normal [facility] Comment on above: Performed By: #### L IPID, URIC, CMP, T7, TSH #### [facility] [address] [place] [address] Dr. Alejandra Crystal AST [Catalytic activity/Vol] 16 U/L Normal 15-37 [facility] Comment on above: Performed By: #### L IPID, URIC, CMP, T7, TSH #### [facility] [address] [place] [address] Dr. Alejandra Crystal Bilirubin [Mass/Vol] 0.6 mg/dL Normal 0.2-1.0 [facility] Comment on above: Performed By: #### L IPID, URIC, CMP, T7, TSH #### [facility] [address] [place] [address] Dr. Alejanrda Crystal Calcium [Mass/Vol] 8.8 mg/dL Normal 8.5-10.1 [facility] Comment on above: Performed By: #### L IPID, URIC, CMP, T7, TSH #### [facility] [address] [place] [address] Dr. Alejandra Crystal Chloride [Moles/Vol] 110 mmol/L Critically high 98-107 [facility] Comment on above: Performed By: #### L IPID, URIC, CMP, T7, TSH #### [facility] [address] [place] [address] Dr. Alejandra Crystal CO2 [Moles/Vol] 23.9 mmol/L Normal 21.0-32.0 [facility] Comment on above: Performed By: #### L IPID, URIC, CMP, T7, TSH #### [facility] [address] [place] [address] Dr. Alejandra Crystal Creatinine [Mass/Vol] 0.90 mg/dL Normal 0.55-1.02 [facility] Comment on above: Performed By: #### L IPID, URIC, CMP, T7, TSH #### [facility] [address] [address] [address] Alejandra Crystal EGFR-AF AFGHAN >=60 Normal >=60 [facility] Comment on above: Performed By: #### L IPID, URIC, CMP, T7, TSH #### [facility] [address] [address] [address] Alejandra Crystal EGFR-NON AF AFGHAN >=60 Normal >=60 [facility] Comment on above: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 02-05-2023 09:41-0400 Systolic blood pressure 110 mm[Hg] Nathanael Ryan MD Work Phone: [facility] 10-01-2022 10:36-0400 Diastolic blood pressure 83 mm[Hg] Ade Hennessy [facility] 10-01-2022 10:36-0400 Heart rate 71 /min Ade Hennessy [facility] 10-01-2022 10:36-0400 Mean blood pressure 100 mm[Hg] Ade Hennessy [facility] 10-01-2022 10:36-0400 Respiratory rate 18 /min Ade Hennessy [facility] 10-01-2022 10:36-0400 Systolic blood pressure 133 mm[Hg] Ade Hennessy [facility] 08-14-2022 10:13-0500 Heart rate 70 /min Boy Hai [facility] 08-14-2022 10:13-0500 SaO2% (BldA) [Mass fraction] 96 % Boy Hai [facility] 08-14-2022 10:13-0500 Respiratory rate 14 /min Boy Hai [facility] 08-14-2022 10:12-0500 Diastolic blood pressure 71 mm[Hg] Boy Hai [facility] 08-14-2022 10:12-0500 Mean blood pressure 86 mm[Hg] Boy Hai [facility] 08-14-2022 10:12-0500 Systolic blood pressure 118 mm[Hg] Boy Hai [facility] 08-14-2022 10:08-0500 Diastolic blood pressure 76 mm[Hg] Boy Hai [facility] 08-14-2022 10:08-0500 Heart rate 69 /min Boy Hai [facility] 08-14-2022 10:08-0500 Respiratory rate 14 /min Boy Hai [facility] 08-14-2022 10:08-0500 SaO2% (BldA) [Mass fraction] 96 % Boy Hai [facility] 08-14-2022 10:08-0500 Systolic blood pressure 126 mm[Hg] Boy Hai [facility] 08-14-2022 09:29-0500 Heart rate 79 /min Boy Hai [facility] 08-14-2022 09:29-0500 SaO2% (BldA) [Mass fraction] 97 % Boy Hai [facility] 08-14-2022 09:29-0500 Diastolic blood pressure 73 mm[Hg] Boy Hai [facility] 08-14-2022 09:29-0500 Mean blood pressure 88 mm[Hg] Boy Hai [facility] 08-14-2022 09:29-0500 Systolic blood pressure 118 mm[Hg] Boy Hai [facility] 08-14-2022 09:28-0500 Body temperature 97.7 [degF] Boy Hai [facility] 08-14-2022 09:28-0500 Respiratory rate 12 /min Boy Hai [facility] 05-18-2022 11:17-0500 Diastolic blood pressure 72 mm[Hg] Ade Hennessy [facility] 05-18-2022 11:17-0500 Heart rate 80 /min Ade Hennessy [facility] 05-18-2022 11:17-0500 Mean blood pressure 88 mm[Hg] Ade Hennessy [facility] 05-18-2022 11:17-0500 Respiratory rate 16 /min Ade Hennessy [facility] 05-18-2022 11:17-0500 Systolic blood pressure 120 mm[Hg] Ade Hennessy [facility] 04-11-2022 17:00-0400 Diastolic blood pressure 83 mm[Hg] Jim Ramirez [facility] 04-11-2022 17:00-0400 Heart rate 76 /min Jim Ramirez [facility] 04-11-2022 17:00-0400 Mean blood pressure 94 mm[Hg] Jim Ramirez [facility] 04-11-2022 17:00-0400 Respiratory rate 20 /min Jim Ramirez [facility] 04-11-2022 17:00-0400 SaO2% (BldA) [Mass fraction] 98 % Jim Ramirez [facility] 04-11-2022 17:00-0400 Systolic blood pressure 117 mm[Hg] Jim Ramirez [facility] 04-11-2022 16:30-0400 Diastolic blood pressure 78 mm[Hg] Jim Ramirez [facility] 04-11-2022 16:30-0400 Heart rate 77 /min Jim Ramirez [facility] 04-11-2022 16:30-0400 Mean blood pressure 92 mm[Hg] Jim James [facility] 04-11-2022 16:30-0400 Respiratory rate 14 /min Jim James [facility] 04-11-2022 16:30-0400 SaO2% (BldA) [Mass fraction] 96 % Jim James [facility] 04-11-2022 16:30-0400 Systolic blood pressure 121 mm[Hg] Jim James [facility] 04-11-2022 16:00-0400 Diastolic blood pressure 92 mm[Hg] Jim James [facility] 04-11-2022 16:00-0400 Heart rate 75 /min Jim James [facility] 04-11-2022 16:00-0400 Mean blood pressure 110 mm[Hg] Jim James [facility] 04-11-2022 16:00-0400 Respiratory rate 22 /min Jim James [facility] 04-11-2022 16:00-0400 Systolic blood pressure 146 mm[Hg] Jim James [facility] 04-11-2022 15:01-0400 gluc 123 mg/dL Jim James [facility] 04-11-2022 15:01-0400 gluc Jimcristina Ramirez [facility] 04-11-2022 14:46-0400 Body temperature 98.6 [degF] Jim Ramirez [facility] 04-11-2022 14:46-0400 Heart rate 86 /min Jim James [facility] 04-11-2022 14:46-0400 Respiratory rate 18 /min Jim James [facility] 04-09-2022 14:22-0400 Diastolic blood pressure 64 mm[Hg] Adeanca Hennessy [facility] 04-09-2022 14:22-0400 Heart rate 79 /min Adeanca Hennessy [facility] 04-09-2022 14:22-0400 Mean blood pressure 86 mm[Hg] Adeanca Hennessy [facility] 04-09-2022 14:22-0400 Respiratory rate 14 /min Ade Hennessy [facility] 04-09-2022 14:22-0400 Systolic blood pressure 129 mm[Hg] Adeanca Hennessy [facility] 02-09-2022 10:10-0400 Diastolic blood pressure 66 mm[Hg] Adeanca Hennessy [facility] 02-09-2022 10:10-0400 Heart rate 72 /min Adeanca Hennessy [facility] 02-09-2022 10:10-0400 Mean blood pressure 78 mm[Hg] Adeanca Hennessy [facility] 02-09-2022 10:10-0400 Respiratory rate 16 /min Adeanca Hennessy [facility] 02-09-2022 10:10-0400 Systolic blood pressure 103 mm[Hg] Adeanca Hennessy [facility] 01-16-2022 15:04-0400 Diastolic blood pressure 77 mm[Hg] Boy Valles [facility] 01-16-2022 15:04-0400 Heart rate 73 /min Boy Valles [facility] 01-16-2022 15:04-0400 Mean blood pressure 89 mm[Hg] Boy Hai [facility] 01-16-2022 15:04-0400 SaO2% (BldA) [Mass fraction] 95 % Boy Hai [facility] 01-16-2022 15:04-0400 Systolic blood pressure 115 mm[Hg] Boy Hai [facility] 01-16-2022 15:04-0400 Respiratory rate 12 /min Boy Hai [facility] 01-16-2022 14:58-0400 Diastolic blood pressure 49 mm[Hg] Oby Hai [facility] 01-16-2022 14:58-0400 Heart rate 71 /min Boy Hai [facility] 01-16-2022 14:58-0400 Respiratory rate 12 /min Boy Hai [facility] 01-16-2022 14:58-0400 SaO2% (BldA) [Mass fraction] 97 % Boy Hai [facility] 01-16-2022 14:58-0400 Systolic blood pressure 117 mm[Hg] Boy Hai [facility] 01-16-2022 14:41-0400 Body temperature 98.6 [degF] Boy Hai [facility] 01-16-2022 14:41-0400 Diastolic blood pressure 57 mm[Hg] Boy Hai [facility] 01-16-2022 14:41-0400 Heart rate 73 /min Boy Hai [facility] 01-16-2022 14:41-0400 Mean blood pressure 74 mm[Hg] Boy Hai [facility] 01-16-2022 14:41-0400 Respiratory rate 12 /min Boy Hai [facility] 01-16-2022 14:41-0400 SaO2% (BldA) [Mass fraction] 98 % Boy Hai [facility] 01-16-2022 14:41-0400 Systolic blood pressure 109 mm[Hg] Boy Hai [facility] 11-17-2021 08:50-0400 Diastolic blood pressure 76 mm[Hg] Ade Hennessy [facility] 11-17-2021 08:50-0400 Heart rate 62 /min Adeanca Hennessy [facility] 11-17-2021 08:50-0400 Mean blood pressure 96 mm[Hg] Adeanca Hennessy [facility] 11-17-2021 08:50-0400 Respiratory rate 18 /min Ade Hennessy [facility] 11-17-2021 08:50-0400 Systolic blood pressure 135 mm[Hg] Adeanca Hennessy [facility] 10-30-2021 07:57-0400 Diastolic blood pressure 77 mm[Hg] Boy Hai [facility] 10-30-2021 07:57-0400 Heart rate 59 /min Boy Hai [facility] 10-30-2021 07:57-0400 Mean blood pressure 89 mm[Hg] Boy Hai [facility] 10-30-2021 07:57-0400 SaO2% (BldA) [Mass fraction] 98 % Boy Hai [facility] 10-30-2021 07:57-0400 Systolic blood pressure 113 mm[Hg] Boy Hai [facility] 10-30-2021 07:49-0400 Diastolic blood pressure 72 mm[Hg] Boy Hai [facility] 10-30-2021 07:49-0400 Heart rate 61 /min Boy Hai [facility] 10-30-2021 07:49-0400 Respiratory rate 16 /min Boy Hai [facility] 10-30-2021 07:49-0400 SaO2% (BldA) [Mass fraction] 97 % Boy Hai [facility] 10-30-2021 07:49-0400 Systolic blood pressure 103 mm[Hg] Boy Hai [facility] 10-30-2021 07:18-0400 Body temperature 98.24 [degF] Boy Hai [facility] 10-30-2021 07:18-0400 Diastolic blood pressure 64 mm[Hg] Boy Hai [facility] 10-30-2021 07:18-0400 Heart rate 72 /min Boy Hai [facility] 10-30-2021 07:18-0400 Mean blood pressure 74 mm[Hg] Boy Hai [facility] 10-30-2021 07:18-0400 Respiratory rate 14 /min Boy Hai [facility] 10-30-2021 07:18-0400 SaO2% (BldA) [Mass fraction] 97 % Boy Hai [facility] 10-30-2021 07:18-0400 Systolic blood pressure 95 mm[Hg] Boy Valles [facility] Encounters Encounter Date Encounter Type Care Provider Facility Start: 11-08-2023 ambulatory CHELE Marshall ty:OSKAR Kane Start: 10-28-2023 End: 10-28-2023 Emergency department patient visit Rosalio Dan [facility] Start: 10-28-2023 End: 10-28-2023 Emergency department patient visit Rosalio Dan [facility] Start: 09-28-2023 End: 09-28-2023 Emergency department patient visit Dandy Ashton Facility:[facility] Start: 09-28-2023 End: 09-28-2023 Emergency department patient visit Dandy Ashton [facility] Start: 09-17-2023 End: 09-18-2023 Emergency department patient visit Dandy Ashton Facility:[facility] Start: 09-17-2023 End: 09-17-2023 Emergency department patient visit Dandy Ashton [facility] Start: 07-29-2023 End: 10-07-2023 ambulatory Ade Hennessy Facility:[facility] Start: 07-15-2023 ambulatory Devon Romo F acility:[facility] Start: 06-25-2023 End: 07-03-2023 Pre-admission assessment Ade Hennessy [facility] Start: 06-10-2023 End: 06-11-2023 ambulatory Tae Alcazar Facility:[facility] Start: 06-10-2023 End: 06-10-2023 Pain Management Ade Hennessy [facility] Start: 05-08-2023 End: 05-08-2023 ambulatory STALIN REYES Facility:[facility] Start: 05-08-2023 End: 05-08-2023 Patient encounter procedure Stalin Reyes MD Work Phone: Neurology Comment on above: Radiculopathy, lumba r region (Primary Dx); Intractable chronic migraine without aura and without status migrainosus; Essential tremor; Depression, unspecified depression type; Anxiety Start: 05-07-2023 End: 05-08-2023 ambulatory Boy Valles Facility:[facility] Start: 05-07-2023 End: 05-07-2023 Pain Management Boy Wilson Hai [facility] Start: 04-19-2023 End: 04-20-2023 ambulatory Ade Hennessy Facility:[facility] Start: 04-19-2023 End: 04-19-2023 Pain Management Ade Hennessy [facility] Start: 03-14-2023 End: 03-15-2023 Emergency department patient visit Chandni Walshkrsitina Facility:[facility] Start: 03-14-2023 End: 03-15-2023 Emergency department patient visit [facility] Start: 02-05-2023 End: 02-05-2023 ambulatory NATHANAEL RYAN Facility:[facility] Start: 02-05-2023 End: 02-05-2023 Patient encounter procedure Nathanael Ryan MD Work Phone: [facility] Comment on above: Hemangioma of bone ( Primary Dx); Brain tumor (HCC) Start: 01-24-2023 End: 01-24-2023 ambulatory Ade Valderrama RT(R) Radiology Comment on above: Radiology MRI Start: 01-24-2023 Patient encounter procedure Ade Valderrama RT(R) [facility]TH [place] Start: 12-18-2022 Telephone encounter Edilberto delacruz RN Work Phone: [facility] Comment on above: Insurance Authorizat ion (Emgality 120MG/ML auto-injectors (migraine)/) Start: 12-17-2022 End: 12-17-2022 ambulatory STALIN REYES Facility:[facility] Start: 11-20-2022 End: 11-21-2022 ambulatory Yamile Muller Facility:[facility] Start: 10-13-2022 End: 10-13-2022 ambulatory EDUARDO [facility] Start: 10-01-2022 End: 10-01-2022 Pain Management Ade Hennessy [facility] Start: 09-20-2022 End: 09-20-2022 Patient encounter procedure Tae Alcazar [facility] Start: 08-28-2022 ambulatory EDUARDO CHYNA [facility] Start: 08-25-2022 End: 08-26-[address] TAE ALCAZAR . Facility:[facility] Start: 08-16-2022 End: 08-16-[address] TAE ALCAZAR . Facility:[facility] Start: 08-14-2022 End: 08-14-2022 Pain Management Boy Valles [facility] Start: 08-13-2022 End: 08-13-[address] TAE ALCAZAR . Facility:[facility] Start: 07-17-2022 End: 08-01-2022 Pre-admission assessment Boy Valles [facility] Start: 07-03-2022 End: 07-03-2022 Pain Management Boy Valles [facility] Start: 06-06-2022 End: 06-06-[address] TAE ALCAZAR . Facility:[facility] Start: 06-04-2022 Encounter for genera l adult medical examination without abnormal findings DR TAE ALCAZAR . [facility] Start: 05-29-2022 End: 05-30-[address] TAE ALCAZAR . Facility:[facility] Start: 05-29-2022 End: 05-30-2022 Encounter for general adult medical examination without abnormal findings DR TAE ALCAZAR . Facility:[facility] Start: 05-18-2022 End: 05-18-2022 Pain Management Ade Hennessy [facility] Start: 05-17-2022 End: 05-18-[address] TAE ALCAZAR . Facility:[facility] Start: 05-15-2022 End: 05-16-[address] TAE ALCAZAR . Facility:[facility] Start: 04-23-2022 End: 04-23-2022 Patient encounter procedure MIRANDA CAT [facility] Start: 04-11-2022 End: 04-11-2022 Emergency department patient visit Jim Ramirez [facility] Start: 04-09-2022 End: 04-09-2022 Pain Management Ade Hennessy [facility] Start: 04-09-2022 End: 04-10-[address] TAE ALCAZAR . Facility:[facility] Start: 03-29-2022 End: 03-29-2022 ambulatory MARANDA BARRERA . Facility:[facility] Start: 03-19-2022 End: 03-19-[address] TAE ALCAZAR . Facility:[facility] Start: 03-05-2022 End: 03-06-[address] TAE ALCAZAR . Facility:[facility] Start: 02-21-2022 End: 02-21-2022 Patient encounter procedure ADE AMARO [facility] Start: 02-09-2022 End: 02-09-2022 Pain Management Ade Hennessy [facility] Start: 01-29-2022 End: 01-29-[address] TAE ALCAZAR . Facility:[facility] Start: 01-16-2022 End: 01-16-2022 Pain Management Boy Valles [facility] Start: 01-05-[address] TAE ALCAZAR . [...] 11-17-2021 End: 11-17-2021 Pain Management Ade Hennessy [facility] Start: 10-30-2021 End: 10-30-2021 Pain Management Boy Valles [facility] Start: 10-07-2017 End: 10-08-2017 Ambulatory REFERRED SELF Facility:[facility] Procedures Date Procedure Procedure Detail [...] of lumbar spine using fluoroscopic guidance Boy Hai Comment on above: L4+L5 25% relief wor thwhile L4+L5 25% relief wor thwhile Start: 08-21-2011 Amputation of finger tip Boy Hai Comment on above: right 3rd finger right 3rd finger Start: 12-07-2003 Cholecystectomy Boy Hai Hysterectomy Boy Hai Comment on above: partial partial Repair of ligament Boy Wenceslao neal Plan of Treatment Date Care Activity Detail Author Start: 09-12-2032 Urine microalbumin profile DTaP,Tdap,Td Vaccine (2 - Td or Tdap) [facility] Start: 03-08-2023 Covid-19 Vaccine ( season) Covid-19 Vaccine ( season) [facility] Start: 03-08-2023 Influenza vaccination C [facility] Start: 2019 Mammography [facility] Start: 2009 HPV TESTING HPV TESTING [facility] Start: 2000 PAP TESTING PAP TESTING [facility] Start: 1998 SHINGRIX VACCINE (1 of 2) SHINGRIX V ACCINE (1 of 2) [facility] Start: 1998 Urine microalbumin profile DTAP,TDAP,TD (1 - Tdap) [facility] Start: 1997 HEPATITIS C SCREENING HEPATITIS C SC MICHAEL [facility] Start: 1997 HIV SCREENING HIV SCREENING [facility] Start: 1985 PNEUMOCOCCAL (1 - PCV) PNEUMOCOCCAL (1 - PCV) [facility] Start: 1985 Pneumococcal vaccination Pneum ococcal Vaccine (1 - PCV) [facility] Start: 1979 HEPATITIS B (1 of 3 - 3-dose series) HEPATITIS B (1 of 3 - 3-dose series) [facility] Start: 1979 Hepatitis B Vaccine (1 of 3 - 3-dose series) Hepatitis B Vaccine (1 of 3 - 3-dose series) [facility] Immunizations Immunization Date Immunization Notes Care Provider Fa cility 09-12-2022 influenza virus vacc ine, unspecified formulation [facility] 09-12-2022 SARS-CoV-2 (COVID-19 ) [id number] [facility] 09-12-2022 tetanus toxoid, redu leticia diphtheria toxoid, and acellular pertussis vaccine, adsorbed [facility] 01-24-2022 SARS-CoV-2 (COVID-19 ) mRNA-1273 vaccine [facility] 11-16-2020 SARS-CoV-2 (COVID-19 ) mRNA-1273 vaccine [facility] 10-19-2020 SARS-CoV-2 (COVID-19 ) mRNA-1273 vaccine [facility] 05-04-2020 influenza virus vacc ine, unspecified formulation [facility] 08-24-2019 influenza virus vacc ine, unspecified formulation [facility] 03-26-2017 influenza virus vacc ine, unspecified formulation [facility] Payers Date Payer Category Payer Self-pay 2022 Medicaid [facility] [id number] 2022-Present [phone] [address] [place] [address] Medicaid [id number] 1979 Unknown [id number] 2.16.840.1.797753.3.579.2.593 1979 Unknown [id number] 2.16.840.1.010275.3.579.2.593 1979 Unknown [id number] 2.16.840.1.930161.3.579.2.593 1979 Unknown [id number] 2.16.840.1.371676.3.579.2.593 1979 Unknown [id number] 2.16.840.1.681751.3.579.2.593 1979 Unknown [id number] 2.16.840.1.577447.3.579.2.593 1979 Unknown [id number] 2.16.840.1.693283.3.579.2.593 1979 Unknown [id number] 2.16.840.1.645916.3.579.2.593 1979 Unknown [id number] 2.16.840.1.688887.3.579.2.593 1979 Unknown [id number] 2.16.840.1.770542.3.579.2.593 1979 Unknown [id number] 2.16.840.1.260737.3.579.2.593 1979 Unknown [id number] 2.16.840.1.063592.3.579.2.593 1979 Unknown [id number] 2.16.840.1.748542.3.579.2.593 1979 Unknown [id number] 2.16.840.1.350820.3.579.2.593 1979 Unknown [id number] 2.16.840.1.763291.3.579.2.593 1979 Unknown [id number] 2.16.840.1.586547.3.579.2.593 1979 Unknown [id number] 2.16.840.1.778421.3.579.2.593 1979 Unknown [id number] 2.16.840.1.571603.3.579.2.593 1979 Unknown [id number] 2.16.840.1.727519.3.579.2.593 1979 Unknown [id number] 2.16.840.1.659996.3.579.2.727 1979 Unknown [id number] 2.16.840.1.053109.3.579.2.727 1979 Unknown [id number] 2.16.840.1.467769.3.579.2.727 1979 Unknown [id number] 2.16.840.1.691441.3.579.2.72 1979 Unknown [id number] 2.16.840.1.575067.3.579.2.727 1979 Unknown [id number] 2.16.840.1.162210.3.579.2.727 1979 Unknown [id number] 2.16.840.1.705196.3.579.2.727 1979 Unknown [id number] 2.16.840.1.345626.3.579.2.72 1979 Unknown [id number] 2.16.840.1.693597.3.579.2.72 1979 Unknown [id number] 2.16.840.1.528341.3.579.2.727 1979 Unknown [id number] 2.16.840.1.228549.3.579.2.727 1959 Medicaid [id number] 1959 Unknown [id number] 1959 Unknown [id number] 1959 Unknown [id number] Unknown [id number] 2.16.840.1.449121.3.579.2.531 Social History Date Type Detail Facility Start: 07-04-2020 End: 11-20-2022 Tobacco smoking status Never smoked tobacco (finding) [facility] Comment on above: Paul Start: 12-17-2022 End: 02-05-2023 Sex Assigned At Female [facility] Start: 05-12-2015 Tobacco use and exposure Smokeless tobacco non-user [facility] Work Phone: Start: 12-17-2022 End: 05-08-2023 Alcohol intake Current drinker of alcohol (finding) [facility] Start: 05-12-2015 Alcohol Comment occassional [facility] Start: 1980 Sex Assigned At Not on file C [facility] Start: 12-17-2022 End: 02-05-2023 History of Social function [facility] Adult Depression Screening Assessment 5 [facility] Functional Status Date Assessment Result Facility 10-28-2023 Functional Status N/A [facility] 09-28-2023 Functional Status N/A [facility] 09-17-2023 Functional Status N/A [facility] 06-10-2023 Functional Status N/A [facility] 05-07-2023 Functional Status N/A [facility] 04-19-2023 Functional Status N/A [facility] 03-14-2023 Functional Status N/A [facility] 10-01-2022 Functional Status N/A [facility] 08-14-2022 Functional Status N/A [facility] 05-18-2022 Functional Status N/A [facility] 04-11-2022 Functional Status N/A [facility] 04-09-2022 Functional Status N/A [facility] 02-09-2022 Functional Status N/A [facility] 01-16-2022 Functional Status N/A [facility] Clinical Notes 11-17-2021 to 10-28-2023 Note Date & Type Note Facility 10-28-2023 Hospital Discharg e instructions Patient Education 10/28/2023 20:38:27 Renal Mass Renal Mass A renal mass is an abnormal growth in the kidney. It may be found while performing an MRI, CT scan, or ultrasound to evaluate other problems of the abdomen. A renal mass that is cancerous (malignant) may grow or spread quickly. Others are not cancerous (benign). Renal masses include: Tumors. These may be malignant or benign. ?The most common type of kidney cancer in adults is renal cell carcinoma. In children, the most common type of kidney cancer is Wilms tumor. ?The most common benign tumors of the kidney include renal adenomas, oncocytomas, and angiomyolipoma (AML). Cysts. These are fluid-filled sacs that form on or in the kidney. What are the causes? Certain types of cancers, infections, or injuries can cause a renal mass. It is not always known what causes a cyst to develop in or on the kidney. What are the signs or symptoms? Often, a renal mass does not cause any signs or symptoms; most kidney cysts do not cause symptoms. How is this diagnosed? Your health care provider may recommend tests to diagnose the cause of your renal mass. These tests may be done if a renal mass is found: Physical exam. Blood tests. Urine tests. Imaging tests, such as ultrasound, CT scan, or MRI. Biopsy. This is a small sample that is removed from the renal mass and tested in a lab. The exact tests and how often they are done will depend on: The size and appearance of the renal mass. Risk factors or medical conditions that increase your risk for problems. Any symptoms associated with the renal mass, or concerns that you have about it. Tests and physical exams may be done once, or they may be done regularly for a period of time. Tests and exams that are done regularly will help monitor whether the mass is growing and beginning to cause problems. How is this treated? Treatment is not always needed for this condition. Your health care provider may recommend careful monitoring and regular tests and exams. Treatment will depend on the cause of the mass. Treatment for a cancerous renal mass may include surgical removal, chemotherapy, radiation, or immunotherapy. Most kidney cysts do not need to be treated. Follow these instructions at home: What you need to do at home will depend on the cause of the mass. Follow the instructions that your health care provider gives to you. In general: Take tspk-ezv-tsenuxm and prescription medicines only as told by your health care provider. If you were prescribed an antibiotic medicine, take it as told by your health care provider. Do not stop taking the antibiotic even if you start to feel better. Follow any restrictions that are given to you by your health care provider. Keep all follow-up visits. This is important. ?You may need to see your health care provider once or twice a year to have CT scans and ultrasounds. These tests will show if your renal mass has changed or grown. Contact a health care provider if you: Have pain in your side or back (flank pain). Have a fever. Feel full soon after eating. Have pain or swelling in the abdomen. Lose weight. Get help right away if: Your pain gets worse. There is blood in your urine. You cannot urinate. You have chest pain. You have trouble breathing. These symptoms may represent a serious problem that is an emergency. Do not wait to see if the symptoms will go away. Get medical help right away. Call your local emergency services (911 in the [place] Summary A renal mass is an abnormal growth in the kidney. It may be cancerous (malignant) and grow or spread quickly, or it may not be cancerous (benign). Renal masses often do not have any signs or symptoms. Renal masses may be found while performing an MRI, CT scan, or ultrasound for other problems of the abdomen. Your health care provider may recommend that you have tests to diagnose the cause of your renal mass. These may include a physical exam, blood tests, urine tests, imaging, or a biopsy. Treatment is not always needed for this condition. Careful monitoring may be recommended. This information is not intended to replace advice given to you by your health care provider. Make sure you discuss any questions you have with your health care provider. Document Revised: 12/19/2020 Document Reviewed: 12/19/2020 [employer] Patient Education 2022 [employer] Education. Follow Up Care 10/28/2023 17:26:09 With:Luis Armando FOWLER Address: [address] [address]- Business (1) [facility] [address] [place] [address]- Business (1) When:10/31/2023 20:24:50 Comments:Call for diagnosis based follow up With:Tae Alcazar Address: [address] [place], [place] [id number]- Business (1) When:Within 3 Day(s) [facility] 09-28-2023 Evaluation + Plan note Extrac brandon from: Title:ED Note Author:Poli Dandy GarciaKetan Date :09/28/23 Cough (R05.9: Cough, unspeci fied) Orders: brompheniramine/dextromethorphan/PSE, 5 mL, Oral, QID for cough and congestion, 200 mL, Refill(s) 0, [facility]/pharmacy #[id number], 160, cm, 09/28/23 1:17:00 EDT, Height/Length Dosing, 97.9, kg, 09/28/23 1:17:00 EDT, Weight Dosing dexamethasone, 10 mg = 2.5 mL, Injection, Oral, Once, Stop date 09/28/23 2:17:00 EDT, STAT, Start date 09/28/23 2:17:00 EDT, 09/28/23 2:17:00 EDT Influenza A&B Ag Rapid COVID Antigen ([facility]R Chest 2 Views [facility]2024 Hospital Discharge instructions Patient Education 09/28/2023 02:27:06 [...] Follow these instructions at home: Medicines Take holl-zsy-hpbkkma and prescription medicines only as told by [...] of a condition that needs treatment. Take tvyj-cca-yaqhdtw and prescription medicines only as told by [...] provider. Document Revised: 07/13/2019 Document Reviewed: 07/13/2019 Nohemy Patient Education 2022 [employer] Education. Follow Up Care 09/28/2023 01:07:11 With:Tae Alcazar Address: [address] [place], [place] [id number]- Business (1) When:10/05/2023 only if needed [facility]03-13-2024 Hospital Discharge instructions Patient Education 09/17/2023 23:38:36 [...] help with your condition: Managing pain Take ihvd-lab-ykcomhv and prescription medicines only as told by [...] provider. Document Revised: 11/22/2021 Document Reviewed: 11/22/2021 [employer] Patient Education 2022 [employer] Education. Follow Up Care 09/17/2023 20:39:37 With:Tae Alcazar Address: [address] [place], [place] [id number] Business (1) When:Within 3 Day(s) [facility]03-12-2024 Evaluation + Plan noteExtracted from: Title:ED Note [...] 09/17/23 20:50:00 EDT, Infuse over 61, minute(s) [facility]12-04-2023 Evaluation + Plan noteExtracted from: Title:Pain Managment [...] reevaluation to discuss options PAOLA score: 36% [facility]11-01-2023 NoteHNO ID: [id number] Author: Stalin Reyes MD Service: ? Author Type: Physician Type: Progress Notes Filed: 05/08/2023 3:40 PM Note Text: [facility] Follow up/ Established patient visit Individuals who were included in, or assisted with the encounter were: Mitesh Reyes MD Chief Complaint/Issues: Mitesh Kendall Burgess is a 43 year old R handed female w PMH chronic migraine stopped Emgality half year ago, anxiety, depression, skull mass, seen in the [facility] for: Dizziness, headache and tremor Most Recent Neurological Assessment and Plan: Last Filed Values Date of Most Recent Assessment and Plan 12/17/22 Specialty General Neurology Assessment Mitesh Burgess is a 42 year old R handed female w PMH chronic migraine stopped Emgality half year ago, anxiety, depression, skull mass, seen in the [facility] for: 1. Dizziness, [...] pain management. Her pain management is absent [facility]. She has been on Lyrica 300 [...] intact. Fundi with normal (more content not included)...[facility] [id number] Instructions* Patient Instructions* Stalin Reyes MD - [...] up in 6 months documented in this encounterOhio[facility]11-01-2023 History of Present illness Narrative* Stalin Reyes MD - 05/08/2023 2:21 PM EDT Images from the original note were not included. [facility] Follow up/ Established patient visit Individuals who were included in, or assisted with the encounter were: Mitesh Kendall Burgess Stalin Reyes MD Chief Complaint/Issues: Mitesh Burgess is a 43 year old R handed female w PMH chronic migraine stopped Emgality half year ago, anxiety, depression, skull mass, seen in the [facility] for: Dizziness, headache and tremor Most Recent Neurological Assessment and Plan: Last Filed Values Date of Most Recent Assessment and Plan 12/17/22 Specialty General Neurology Assessment Mitesh Burgess is a 42 year old R handed female w PMH chronic migraine stopped Emgality half year ago, anxiety, depression, skull mass, seen in the [facility] for: 1. Dizziness, [...] pain management. Her pain management is absent [facility]. She has been on Lyrica 300 [...] skull mass, seen in the [facility] for: 1. Dizziness, [...] on 06/24/18 EMG(NEURO/NI) Result Value Ref [employer] [facility] Please click on 'View Neuro EMG' in [...] which included preparing to see the patient, dxni-vp-nrur patient care, completing clinical documentation, obtaining and/or reviewing separately obtained history, performing a medically appropriate examination, counseling and educating the pat ient/family/caregiver, ordering medications, tests, or procedures, independently interpreting results (not separately reported), communicating results to the patient/family/caregiver, and care coordination (not separately reported). Stalin Reyes MDThere is no data to display for this encounter documented in this encounterOhiohealth [facility]10-31-2023 Note [id number] [facility] 04-19-20[facility] Evaluation + Plan noteExtracted [...] Refill of Lyrica sent. PAOLA score: 42% [facility]09-08-2023 Evaluation + Plan noteExtracted from: Title:ED Note [...] EDT, 500 mL/hr, Infuse over 1, hour(s) [facility]09-08-2023 Hospital Discharge instructions Patient Education 03/15/2023 01:14:45 [...] Follow these instructions at home: Medicines Take edcf-jwu-catngdp and prescription medicines only as told by your health care provider. Ask your health care provider if the medicine prescribed to you: ?Requires you to avoid driving or using heavy machinery. ?Can cause constipation. You may need to take these actions to prevent or treat constipation: ?Drink enough fluid to keep your urine pale yellow. ?Take tutc-qyn-rsikmkg or prescription medicines. ?Eat foods that are [...] provider. Document Revised: 10/16/2019 Document Reviewed: 08/06/2019 [employer] Patient Education 2022 [employer] Education. Follow Up Care 03/14/2023 21:27:36 With:Tae Inge Address: [address] [place] [address] Business (1) When:03/18/2023 Comments:Return to the emergency room if your headache recurs or any new symptoms. [facility]08-01-2023 NoteHNO ID: [id number] Author: Nathanael Ryan MD Service: ? 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 TECHNIQUE: Routine brain MRI protocol (more content not included)...[facility]08-01-[facility] History of Present illness Narrative* Nathanael Ryan MD - 02/05/2023 10:09 AM EDT Images from the original note were not included. [facility] New Patient Consultation Referred by Stalin Reyes [address] [place] [id number] Diagnosis: skull hemangioma Subjective History of Present [...] skull mass, seen in the [facility] for: Dizziness, headache [...] and is most compatible with intraosseous hemangioma. Silhouette Artist: DONNELL Transcribe Date/Time: Jan 24 2023 2:35P Dictated by : DONAL BURNS MD This examination was interpreted and the report reviewed and electronically signed by: DONAL BURNS MD on Jan 24 2023 2:42PM EST Data Review: Arnold Sanchez MD 10:26 AM 02/05/2023 [facility] Personal review of medical records: I reviewed the [facility] chart. Personal review of image, tracing or [...] which included preparing to see the patient, ihkz-ru-sidr patient care, completing clinical documentation, obtaining and/or reviewing separately obtained history, counseling and educating the patient/family/caregiver, independently interpretin g results (not separately reported), and care coordination (not separately reported). Nathanael Ryan MD February 05, 2023 10:46 AM documented in this encounterOhiohealth [facility]08-01-2023 Nurse Note* Ade Patten Ma - 02/05/2023 9:40 AM EDT Additional intake questions: Has the patient had fever, nausea, vomiting, diarrhea, constipation, fatigue for > 1 week? No Does the patient have a decreased appetite? No Does patient want to see a Occ Med Physician? No (yes to any of above refer patient to schedulers for dietitian appointment) ) Does patient have any new or increased numbness or tingling of extremities? No Is patient interested in fertility information? No Does patient need any prescription refills? No Does patient have an advanced directive in place? No, Patient referred to [facility] documented in this encounterOhio[facility]07-20-2023 NoteHNO ID: [id number] Author: Ade Valderrama RT(R) Service: ? Author [...] MR; Exam(s) Completed: Head: Routine Brain SIGNATURE: RICHARD Berry) PATIENT NAME: Mitesh Burgess DATE: January 24, 2023 TIME: 2:05 [facility]07-20-2023 History of Present illness Narrative* Ade [...] 2023 TIME: 2:05 PM documented in this encounterOhiohealth [facility]06-15-2023 Miscellaneous Notes* Telephone Encounter - Edilberto Tirado RN - 12/20/2022 3:58 PM EDT Ambulatory Pharmacy Prior Authorization Note Provider Intervention Required?: No- Pharmacy completed on your behalf. Rx Plan: Medicaid [facility] ([facility]) Drug: Emgality 120MG/ML auto-injectors (migraine) Cover My Meds Garcia: [id number] Determination: Approved Prior Authorization/Case #: n/a Prior [...] refills. Prescriptions will now be processed through [facility] for determination of next steps. For questions relating to this submission, please contact [facility] at [phone] * Telephone Encounter - Edilberto Tirado RN - 12/18/2022 4:55 PM EDT [facility] received prescription(s) for Emgality 120MG/ML auto-injectors (migraine). Benefits investigation was conducted, indicating that a prior authorization is required. PA was initiated and pending review through [employer]. All pertinent clinical information was submitted to insurance. CMM Garcia: [id number] Ordering Provider: MD Cleestino Etienne Alisha, RN [facility] P: , F: documented in this encounterOhiohealth [facility]06-12-2023 NoteHNO ID: [id number] Author: Stalin Reyes MD Service: ? Author Type: Physician Type: Progress Notes Filed: 12/17/2022 2:28 PM Note Text: [facility] Follow up/ Established patient visit Individuals who were included in, or assisted with the encounter were: Mitesh Kendall Burgess Stalin Reyes MD Chief Complaint/Issues: Mitesh Burgess is a 42 year old R handed female w PMH chronic migraine stopped Emgality half year ago, anxiety, depression, skull mass, seen in the [facility] for: Dizziness, headache [...] skull mass, seen in the [facility] for: 1. Dizziness, [...] and depression PLAN --W (more content not included)...[facility] [id number] Note Attestation signed by Eduardo Clemente MD [...] available for review today. MRI report from [facility] was reviewed stating the possibility of [...] WIN MD Orthopedic Surgery, PGY-1 Ortho Pager [phone] 10/13/22 1:38 PMUnJoint [facility]03[facility] Evaluation + Plan noteExtracted from: Title:Pain Managment Follow up Author:Ade Puente Date:10/01/22 Impression and Plan Patient is a 42-year-old female with a past medical history significant for lumbar neuritis, sacroiliitis, myalgia, left hip and knee pain. She also has some shoulder issues. She is seeing somebody at the [facility] for this. She has an appointment [...] 01:00:00 PM Scheduled Provider:Ade Hennessy PA-C Location:.[facility] Appointment Type:Pain Management - Follow Up (FT) [facility]02-21-2023 Note Attestation signed by Eduardo Clemente MD [...] available for review today. MRI report from [facility] was reviewed stating the possibility of [...] Jim Carranza MD Orthopedic Surgery, PGY-5 Pager: [phone] 08/28/22 11:42 AM By using the attestations [...] and I was otherwise immediately [facility]11-[facility]-2022 Evaluation + Plan noteExtracted from: Title:Pain Managment [...] for reevaluation. Call clinic sooner if necessary. [facility]10-05-2022 Hospital Discharge instructions Patient Education 04/11/2022 17:19:39 [...] fried or sweet foods. General instructions Take xwfp-vty-epvttej and prescription medicines only as told by [...] 06/14/2003 Document Revised: 07/20/2019 Document Reviewed: 07/03/2018 [employer] Patient Education 2020 [employer] Education. 04/11/2022 17:19:39 Neuropathic Pain Neuropathic Pain Neuropathic [...] this treated? Treatment for neuropathic pain may private branch exchange repairer time. You may need to try different treatment options or a combination of treatments. Some options include: Treating the underlying cause of the neuropathy, such as diabetes, kidney disease, or vitamin deficiencies. Stopping medicines that can cause neuropathy, such as chemotherapy. Medicine to relieve pain. Medicines may include: ?Prescription or lwxp-nkf-lthlmht pain medicine. ?Anti-seizure medicine. ?Antidepressant medicines. ?Pain-relieving [...] Follow these instructions at home: Medicines Take msob-oiy-ybliftf and prescription medicines only as told by [...] as fried or sweet foods. ?Take an nqai-bgl-nnzhzph or prescription medicine for constipation. Lifestyle Have [...] 03/21/2005 Document Revised: 10/15/2019 Document Reviewed: 07/11/2018 [employer] Patient Education 2020 [employer] Education. Follow Up Care 04/11/2022 14:37:42 With:Chay Carter Address: [address] [place] [address]- Business (1) When:04/12/2022 16:43:30 With:Jr Martines Address: [address] [place] [address]- Business (1) When:04/12/2022 16:43:28 With:Tae Alcazar Address: [address] [place] [address] [place] [address]- Business (1) When:Within 3 Day(s) [facility]10-05-2022 Evaluation + Plan noteExtracted from: Title:ED Note Author:Rae Garcia PA-C e:04/11/22 1. Paresthesias (R20.2: Pare sthesia of [...] Date:05/18/2022 11:15:00 AM Scheduled Provider:Ade Hennessy PA-C Location:FT.[facility] Appointment Type:Pain Management - Follow Up (FT) [facility]10-03-2022 Evaluation + Plan noteExtracted from: Title:Pain management [...] had some falls and went to the [facility] and has had a lot of [...] Date:05/18/2022 11:15:00 AM Scheduled Provider:Ade Hennessy PA-C Location:FT.[facility] Appointment Type:Pain Management - Follow Up (FT) [facility]09-22-2022 NotePROCEDURE: XR SHOULDER LT 2V or > COMPARISON: None. HISTORY: Acute pain due to injury FINDINGS: BONES:No fracture, acute abnormality, or significant arthropathy. SOFT TISSUES:Negative. No visible soft tissue swelling. EFFUSION:None visible. OTHER: Negative. IMPRESSION: No acute abnormality Electronically authenticated by: EDUARDO CROSS Date: 2022-03-29 16:01[facility]08-05-2022 Evaluation + Plan noteExtracted from: Title:Pain [...] Date:03/26/2022 11:15:00 AM Scheduled Provider:Ade Hennessy PA-C Location:FT.[facility] Appointment Type:Pain Management - Follow Up (FT) [facility]05-13-2022 Evaluation + Plan noteExtracted from: Title:Pain management [...] reevaluation. Call the clinic sooner if necessary. [facility] Future Appointments Appointment Date:11/17/2021 08:45:00 AM Scheduled Provider:Ade Hennessy PA-C Location:[facility] Appointment Type:Pain Management - Follow Up (FT) [facility] Future Appointments Appointment Date:02/09/2022 10:00:00 AM Scheduled Provider:Aed Hennessy PA-C Location:[facility] [place] Appointment Type:Pain Management - Follow Up (FT) [facility] Future Appointments Appointment Date:03/26/2022 11:15:00 AM Scheduled Provider:Ade Hennessy PA-C Location:[facility] [place] Appointment Type:Pain Management - Follow Up (FT) [facility] Future Appointments Appointment Date:03/26/2022 11:15:00 AM Scheduled Provider:Ade Hennessy PA-C Location:[facility] [place] Appointment Type:Pain Management - Follow Up (FT) Diagnostic Tests Pending * T[facility] Future Appointments Appointment Date:04/30/2022 04:45:00 PM Scheduled Provider: Location:.[place] [place] Appointment Type:PT Eval (FT) Appointment Date:05/18/2022 11:15:00 AM Scheduled Provider:Ade Hennessy PA-C Location:[facility] [place] Appointment Type:Pain Management - Follow Up (FT) Diagnostic Tests Pending * Group A Strep by PCR 04/23/22 [facility] + Plan note Future Appointments Appointment Date:08/14/2022 10:00:00 AM Scheduled Provider: Location:[facility] Management Appointment Type:Surgery FT Appointment Date:08/31/2022 08:45:00 AM Scheduled Provider:Ade Hennessy PA-C Location:[facility] [place] Appointment Type:Pain Management - Follow Up (FT) [facility] + Plan note Future Appointments Appointment Date:08/31/2022 08:45:00 AM Scheduled Provider:Ade Hennessy PA-C Location:FT[facility] [place] Appointment Type:Pain Management - Follow Up (FT) [facility] Future Appointments Appointment Date:10/01/2022 10:30:00 AM Scheduled Provider:Ade Hennessy PA-C Location:[facility] [place] Appointment Type:Pain Management - Follow Up (FT) [facility] note Future Appointments Appointment Date:06/10/2023 03:00:00 PM Scheduled Provider:Ade Hennessy PA-C Location:[facility] [place] Appointment Type:Pain Management - Follow Up (FT) [facility] note* Diagnosis 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 Brain tumor (HCC) Neoplasm of unspecified nature of brain documented in this encounter [facility] note* Diagnosis Radiculopathy, lumbar region- Primary Thoracic or lumbosacral neuritis or radiculitis, unspecified Intractable chronic migraine without aura and without status migrainosus Chronic migraine without aura, with intractable migraine, so stated, without mention of status migrainosus Essential tremor Essential and other specified forms of tremor Depression, unspecified depression type Anxiety Anxiety state, unspecified documented in this encounter [facility] course Narrative No data available for this section [facility] No data available for this section [facility] No data available for this section [facility] Summary Purpose Family History No Family History [...] and content) DATE CREATED AUTHOR 12/26/2017 [facility] DATE CREATED AUTHOR AUTHOR'S ORGANIZ ATION 10/13/2022 [facility] DATE CREATED AUTHOR AUTHOR'S ORGANIZ ATION 10/15/2022 [facility] DATE CREATED AUTHOR AUTHOR'S ORGANIZ ATION 02/06/2023 [facility] DATE CREATED AUTHOR AUTHOR'S ORGANIZ ATION 05/09/2023 [facility] DATE CREATED AUTHOR AUTHOR'S ORGANIZ ATION 10/01/2023 [facility] DATE CREATED AUTHOR AUTHOR'S ORGANIZ ATION 10/29/2023 [facility] Care Team (unrecognized sect ion and content) 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 Specialty Start Date End Date Tae Alcazar MD PCP - General Family Medicine 05/10/15 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 Specialty Start Date End Date Tae Alcazar MD PCP - General Family Medicine 05/10/15 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 Specialty Start Date End Date Tae Alcazar MD PCP - General Family Medicine 05/10/15 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 Specialty Start Date End Date Tae Alcazar MD PCP - General Family Medicine 05/10/15 Source Comments (unrecognize d section and content) In the event this informatio n is protected by the Federal Confidentiality of Alcohol and Drug Abuse Patient Records regulations: The Federal rules restrict any use of the information to criminally investigate or prosecute any alcohol or drug abuse patient.[facility] HospitalIn the event this information is protected by the Federal Confidentiality of Alcohol and Drug Abuse Patient Records regulations: The Federal rules restrict any use of the information to criminally investigate or prosecute any alcohol or drug abuse patient.[facility] HospitalIn the event this information is protected by the Federal Confidentiality of Alcohol and Drug Abuse Patient Records regulations: The Federal rules restrict any use of the information to criminally investigate or prosecute any alcohol or drug abuse patient.[facility] HospitalIn the event this information is protected by the Federal Confidentiality of Alcohol and Drug Abuse Patient Records regulations: The Federal rules restrict any use of the information to criminally investigate or prosecute any alcohol or drug abuse patient.[facility] Reason for Visit (unrecogniz ed section and content) Reason Comments Insurance Authorization Emgality 120MG/M L auto-injectors (migraine) Reason Comments Radiology MRI Reason Comments New Patient Specialty Diagnoses / Procedures Referred By Contac t Referred To Contact Neurosurgery Diagnoses Brain tumor (HCC) Procedures CONSULT TO NEUROSURGERY OFFICE/OUTPATIENT NEW HIGH MDM 60-74 MINUTES Stalin Reyes MD [address] [place] [address] Referral ID Status Reason Start Date Expiration Date V isits Requested Visits Authorized [id number] Closed PCP Requested Referral 12/17/2022 12/17/2023 1 [...] BE BASED ON THE PRIMARY CLINICAL RECORDS. [employer] provides no warranty or guarantee of the accuracy or completeness of information in this document.
== END 2023-10-31 09:32 | disposition home or self-care (01) ==
LOC: RAD 09:32
PROVIDERS: PCP Family Medicine; Visit Provider Family Medicine
DX: M54.14 Radiculopathy, thoracic region (principal)
CPT/HCPCS: 72072

== ENCOUNTER 2024-03-10 09:52 | Outpatient (OUT) | payer OTHER, SELFPAY ==
--- OUTSIDE RECORDS SUMMARY | 2024-03-10 10:19 | XMS_ITS | CCD ---
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 evidence of an intra-axial mass or extra-axial fluid collection. No abnormal parenchymal or leptomeningeal enhancement is noted following contrast administration. No significant mass effect. Chronic Change: Scattered punctate foci of T2/FLAIR hyperintensity in the supratentorial white matter which is a nonspecific finding and may reflect sequela of chronic migraine headaches, early microvascular ischemic change, or sequela of remote insult. Parenchyma: No significant volume loss for age. Ventricles: Normal caliber and morphology. Skull Base: LEFT calvarial intrinsically T1 and T2/FLAIR hyperintense lesion with heterogeneous enhancement, not significantly changed in appearance from 01/24/2023 and most compatible with an intraosseous hemangioma. As before, the mass extends to the inner calvarial table with questionable minimal expansion of the LEFT parietal calvarium but without evidence of extraosseous extension of disease. Hypothalamic and pituitary region are grossly normal. Craniocervical junction is normal. No significant marrow replacement process. Vasculature: Major intracranial arterial structures, and dural venous sinuses show typical flow void, suggesting patency by spin echo criteria. Other: The paranasal sinuses appear clear. Mastoid air cells appear clear. The orbits appear unremarkable. Extracranial soft tissues appear within normal limits. 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 No acute intracranial process. Clinical Trials Nurse: PSCB Transcribe Date/Time: Mar 04 2024 4:44P Dictated by : KWABENA RAYMUNDO MD This examination was interpreted and the report reviewed and electronically signed by: KWABENA RAYMUNDO MD on Mar 04 2024 4:51PM EST [id number] Normal [facility] CNOVon 02-07-2024 CNOV Office Visit (NSCAMN ) ----- MITESH BURGESS ([id number]) 1980 F Date Time Provider Department 02/07/24 11:00 AM GABRIELA BILL NSCAMN During your visit today, we recorded the following information about you: Temperature Pulse Respiration Blood pressure 97.9 degrees 71/minute 18/minute 113/61 Weight Height 94.5 kg 1.603 m Ade Patten MA 02/07/2024 10:24 AM Signed Additional intake questions: Has the patient had fever, nausea, vomiting, diarrhea, constipation, fatigue for > 1 week? No Does the patient have a decreased appetite? No Does patient want to see a Counter Attendant? No (yes to any of above refer patient to schedulers for dietitian appointment) ) Does patient have any new or increased numbness or tingling of extremities? No Is patient interested in fertility information? No Does patient need any prescription refills? No Does patient have an advanced directive in place? No, Patient referred to Resource Center Electronically Signed By: JOSE A Bishop Beth, APRN.CNP 02/07/2024 10:43 AM Signed [facility] BRAIN TUMOR CENTER NEURO-ONCOLOGY OUTPATIENT NOTE PURPOSE OF VISIT: Consultation requested by Dr. Nathanael Ryan for an opinion regarding skull hemangioma and my final recommendations will be communicated to the referring physician by way of shared medical record or letter to requesting physician via US mail. CHIEF COMPLAINT : skull hemangioma Subjective HISTORY OF PRESENT ILLNESS: Mitesh Burgess is a 43 year old year old female who is here for a follow-up visit for skull hemangioma that was found during work up dizziness and headache. INTERVAL HISTORY 02/07/24 She presents today with her daughter. Unfortunately no MRI has been completed. She states she continues to have headaches. SOCIAL HISTORY: Social History Tobacco Use Smoking status: Never Smokeless tobacco: Never Substance Use Topics Alcohol use: Yes Comment: occassional Drug use: No PAST MEDICAL HISTORY No date: Acquired cyst of kidney No date: Acute costochondritis No date: Anxiety associated with depression No date: Bronchospasm No date: Chest pain No date: Depression No date: Near syncope No date: Pleurisy FAMILY HISTORY Problem Relation Age of Onset Heart Mother valvular problems None Father None Sister Current Outpatient Medications Medication Sig levothyroxine (SYNTHROID) 100 mcg tablet Take 100 mcg by mouth once daily. liothyronine (CYTOMEL) 25 mcg tablet Take 25 mcg by mouth once daily. Cholecalciferol, Vitamin D3, 125 mcg (5,000 unit) cap Take 5,000 Units by mouth once daily. multivitamin (MULTIPLE VITAMINS ORAL) Take 1 tablet by mouth once daily. galcanezumab-gnlm (EMGALITY PEN) 120 mg/mL pen Inject 1 mL under the skin once every month. Do not shake. AUSTEDO XR 24 mg tablet AUSTEDO XR 12 mg tablet CAPLYTA 42 mg capsule TAKE 1 CAPSULE BY ORAL ROUTE 1 TIME PER DAY CHANGE IN DOSAGE traZODone (DESYREL) 50 mg tablet Take 50 mg by mouth daily at bedtime. riboflavin, vitamin B2, (VITAMIN B2) 100 mg tab Take 1 tablet by mouth once daily. pregabalin (LYRICA) 150 mg capsule Take 1 capsule by mouth two times a day. magnesium oxide (MAG-OX) 400 mg (241.3 mg magnesium) tablet Take 1 tablet by mouth two times a day. diclofenac, EC, (VOLTAREN) 75 mg EC tablet Take 75 mg by mouth once daily. meclizine (ANTIVERT) 12.5 mg tab Take 1 tablet by mouth twice daily as needed. busPIRone HCl 30 mg tablet twice daily. ondansetron orally disintegrating (ZOFRAN ODT) 4 mg disintegrating tablet as needed. desvenlafaxine ER (PRISTIQ) 100 mg 24 hr tablet once daily. Takes 2 tabs cetirizine (ZYRTEC) 10 mg tablet lamoTRIgine (LAMICTAL) 200 mg tablet valbenazine (INGREZZA) 60 mg capsule Take 80 mg by mouth once daily. levothyroxine (SYNTHROID) 75 mcg tablet Take 1 tablet by mouth every afternoon. liothyronine (CYTOMEL) 5 mcg tablet Take 4 tablets by mouth every afternoon. lamoTRIgine (LAMICTAL) 25 mg tablet daily at bedtime. Takes 2 tabs along with 200 mg dicyclomine (BENTYL) 10 mg capsule Take 10 mg by mouth. (Patient not taking: Reported on 11/11/2023) No current facility-administered medications for this visit. REVIEW OF SYSTEMS : Neurological : + complaint of headache No complaint of tinnitus No complaint of decreased hearing No complaint of diplopia No complaints of blurred vision. No complaint of arm/leg numbness No problem with limb coordination No complaint of syncope No complaints of seizures. No complaints of memory changes or disorientation. + vertigo General : Constitutional: No recent fever or weight loss. Eyes: No history of glaucoma or cataracts ENMT: No recent ear infection, nasal congestion, mouth sores or sore throat. CV: No history of chest pain, palpitations or leg swelling Respiratory: No history of SOB, wheez (more content not included)... Normal [facility] Outside Records Officeon Outside Records Office [id number] Normal [facility] CNOVon 11-11-2023 CNOV Office Visit (NEADFV ) ----- MITESH BURGESS ([id number]) 1980 F Date Time Provider Department 11/11/23 1:00 PM STALIN REYES NEADFV During your visit today, we recorded the following information about you: Temperature Pulse Blood pressure Weight 97.6 degrees 94/minute 102/78 98 kg Height 1.6 m Noreen Webber MA 11/11/2023 1:34 PM Signed 11/04/2023 PROMIS Global Health Physical Health Summary Physical health: Fair Everyday physical activity, ability: Mostly Fatigue: Moderate Pain level: 6 General health: Good Social activities/roles, ability: Fair Physical Health T-Score 39.8 (Fair) Physical Health Percentile 15 PROMIS Global Health Mental Health Summary Quality of life: Good Mental health (mood,thinking): Good Social satisfaction: Fair Emotional problems (anxious,depressed): Often Mental Health T-Score 38.8 (Fair) Mental Health Percentile 13 Percentiles provide an indication of how a patient's score ranks in relation to the [place] general population. > 31st percentile is within normal limits or better *< 31st percentile is at least ? SD worse than population, which may be clinically relevant < 16th percentile is at least 1 SD worse than population and warrants attention 11/04/2023 Sleep Apnea Probability Snores loudly: No Tired, fatigued or sleepy in daytime: Yes Stops breathing or choking/gasping during sleep: No High blood pressure: No Sleep Apnea Probability Score: 17 (Sleep study not recommended) Stalin Reyes MD 11/11/2023 1:34 PM Signed [facility] Follow up/ Established patient visit Individuals who were included in, or assisted with the encounter were: Mitesh Burgess Stalin Reyes MD Chief Complaint/Issues: Mitesh Burgess is a 43 year old R handed female w PMH chronic migraine on Emgality, anxiety, depression, tardive dyskinesia from psychiatric meds on [place], skull mass following with brain tumor clinic, seen in the [facility] for: Dizziness, headache and hand tremor Most Recent Neurological Assessment and Plan: Last Filed Values Date of Most Recent Assessment and Plan 05/08/23 Specialty General Neurology Assessment Mitesh Burgess is a 43 year old R handed female w PMH chronic migraine stopped Emgality half year ago, anxiety, depression, skull mass, seen in the [facility] for: 1. Dizziness, headache [...] have her follow up with pain management Plan --Reduce lyrica to 150mg twice a day --Talk with your psychiatrist to see whether your psychiatric medication can be reduced because the tremor and sedation might be side effect of those medications. --Let me know if you need a referral to spine medicine --Continue Emgality --Try magnesium 400mg twice a day for headache --Follow up in 6 months HPI/Interval History: Tremor: She has been [...] Lamotrigine 300mg daily. Buspirone 30mg bid, She was on seroquel and ingrezza. 11/11/2023 She is back on Emgality. Still has headache sometimes but she can function with it. She takes tylenol sometimes. Lyrica was reduced to 150mg bid. Dizziness is better but still bothers her sometimes. Stopped ingrezza but on Pristiq 200mg daily. She feels that it makes her dizzy. Regarding the left parietal bone lesion, she had a repeat MRI and saw a doctor from the center of brain tumor. She was told to return in a year. MRI brain 01/24/2023 No acute intracranial abnormality. No patholo (more content not included)... Normal [facility] CT Abdomen/Pelvis w/ Contras ton 10-29-2023 CT [...] Oral contrast amount in ml's: 0 Normal [facility] ED Note-Physicianon 10-29-19 ED Note-Physician Basic Information Time Seen: Daniel [...] and Complexity of Problems Differential Diagnosis: [] [facility] Data External documents reviewed: [] My [...] Nausea/Vomiting, # 12 tab(s), Refills(s) 0, Pharmacy: [id number], 160, cm, 10/28/23 17:43:00 EDT, [...] UA with Cult Rflx Medications Administered Given [id number] [F] 1000 mg + GenDil 100 mL, IV Piggyback NS 1000 ml Bolus, 1000 mL, IV ondansetron 4 mg Dis Tab, 12 mg, Oral ondansetron 4 mg/2 mL Inj, 4 mg, IV Push TO GO acetaminophen-oxycodone 325 mg - 5 mg, 1 EA, Oral Disposi (more content not included)... Normal [facility] Comment on above: Result Comment: Elec tronically Signed By: Daniel Barton PA-C\.br\Date and Time Signed: 10/28/23 21:41 EDT\.br\Electronically Co-Signed By: Rosalio Dan DO\.br\Date and Time Co-Signed: 10/29/23 07:16 EDT Prescriptions/Work Noteson 0 10-29-2023 Prescriptions/Work Notes [id number] Normal [facility] B hCG Qualon 10-28-2023 Beta HCG ( test) Ql Negative Normal [facility] Comment on above: Performed By: #### 2 928683, [id number], 7266155, 36395853, 2139702, 9496503 ####[facility] [address] [place] [address] BMPon 10-28-2023 Anion gap [Moles/Vol] 12 mmol/L Normal 6-16 [facility] Comment on above: Performed By: #### 2 704709, 43620787, 8826778, 45173612, 2734802, 0266374 ####[facility] [address] [place] [address] Calcium [Mass/Vol] 8.8 mg/dL Low 8.9-11.1 [facility] Comment on above: Performed By: #### 2 991789, 81592504, 6449061, 13547939, 2266598, 5841635 ####[facility] [address] [place] [address] Chloride [Moles/Vol] 107 mmol/L Normal 101-111 [facility] Comment on above: Performed By: #### 2 292627, 87084765, 5433729, 00612970, 3371881, 7858780 ####[facility] [address] [place] [address] CO2 [Moles/Vol] 22 mmol/L Normal 21-[address] [facility] Comment on above: Performed By: #### 2 120675, 99007005, 1342428, 15205303, 7437983, 3111816 ####[facility] [address] [place] [address] Creatinine [Mass/Vol] 0.9 mg/dL Normal 0.5-1.3 [facility] Comment on above: Performed By: #### 2 947925, 82982955, 4353727, 57523447, 5593110, 6320660 ####[facility] [address] [place] [address] Glucose [Mass/Vol] 103 mg/dL Normal 55-199 [facility] Comment on above: Performed By: #### 2 693118, 28335347, 9615483, 34423218, 5884854, 8904081 ####[facility] [address] [place] [address] Potassium [Moles/Vol] 3.1 mmol/L Low 3.5-5.3 [facility] Comment on above: Performed By: #### 2 897567, 36087522, 7473044, 95554342, 5606166, 9884179 ####[facility] [address] [place] [address] Sodium [Moles/Vol] 138 mmol/L Normal 135-145 [facility] Comment on above: Performed By: #### 2 218969, 71792634, 0495655, 03108486, 6814600, 7339446 ####[facility] [address] [place] [address] Urea nitrogen [Mass/Vol] 16 mg/dL Normal 5-21 [facility] Comment on above: Performed By: #### 2 675699, 41823815, 0662364, 67265469, 3522406, 2201563 ####[address] [address] Urea nitrogen/Creatinine [Mass ratio] 18 No Units Normal 10-20 [facility] Comment on above: Performed By: #### 2 744679, 57477658, 6131953, 34226169, 1094042, 6259777 ####[facility] [address] [place] [address] CBC w/ Auto Diffon 4 Basophils/100 WBC (Bld) 0.4 % Normal 0.0-2.0 [facility] Comment on above: Performed By: #### 2 199821, 78179584, 5169756, 11453974, 6901361, 1027642 ####[address] [address] Basophils/Leukocytes Auto (Bld) [Pure # fraction] 0.0 E9/L Normal 0.0-0.2 [facility] Comment on above: Performed By: #### 2 863915, 60568344, 4271401, 42451681, 1887911, 6462818 ####[address] [address] Eosinophils (Bld) [#/Vol] 0.0 E9/L Normal 0.0-0.5 [facility] Comment on above: Performed By: #### 2 519763, 67466488, 2309937, 88197824, 6630038, 0825705 ####[place] [address] [place] [address] Eosinophils/100 WBC (Bld) 0.1 % Normal 0.0-8.0 [facility] Comment on above: Performed By: #### 2 100984, 89436435, 7762701, 34674928, 1058758, 5497846 ####[address] [address] Erythrocyte distribution width (RBC) [Ratio] 12.2 % Normal 10.9-14.2 [facility] Comment on above: Performed By: #### 2 224465, 47554061, 5752018, 90230225, 2436073, 0442404 ####[address] [address] Hematocrit (Bld) [Volume fraction] 39.8 % Normal 34.0-46.0 [facility] Comment on above: Performed By: #### 2 760989, 97254870, 3522681, 50068791, 1803372, 8014933 ####[address] [address] Hemoglobin (Bld) [Mass/Vol] 13.5 g/dL Normal 12.0-16.0 [facility] Comment on above: Performed By: #### 2 130054, 01448000, 1515875, 72068753, 5881277, 2627481 ####[address] [address] Lymphocytes (Bld) [#/Vol] 1.8 E9/L Normal 1.0-4.0 [facility] Comment on above: Performed By: #### 2 803796, 97439305, 7472510, 74244857, 0969760, 1947624 ####[address] [address] Lymphocytes/100 WBC (Bld) 28.3 % Normal 14.0-50.0 [facility] Comment on above: Performed By: #### 2 766288, 68064423, 8441229, 38272588, 3415697, 7773535 ####[address] [address] MCH (RBC) [Entitic mass] 31.3 pg Normal 27.0-34.0 [facility] Comment on above: Performed By: #### 2 407707, 12210582, 1667187, 74612684, 1991678, 6078605 ####[address] [address] MCHC (RBC) [Mass/Vol] 33.9 g/dL Normal 31.4-36.0 [facility] Comment on above: Performed By: #### 2 507654, 49999098, 3614461, 23709143, 5934445, 3824830 ####[address] [address] MCV (RBC) [Entitic vol] 92.4 fL Normal 80.0-100.0 [facility] Comment on above: Performed By: #### 2 352469, 74800622, 1992955, 58878008, 6516747, 1719590 ####[address] [address] Monocytes (Bld) [#/Vol] 0.5 E9/L Normal 0.2-1.0 [facility] Comment on above: Performed By: #### 2 182731, 87325668, 2347036, 73112143, 1448024, 3489892 ####[address] [address] Neutrophils (Bld) [#/Vol] 4.1 E9/L Normal 2.0-7.5 [facility] Comment on above: Performed By: #### 2 987994, 27561592, 5033042, 96430635, 3223373, 4142105 ####[address] [place] [address] Neutrophils/100 WBC (Bld) 63.5 % Normal 36.0-75.0 [facility] Comment on above: Performed By: #### 2 310538, 82920043, 2734712, 89882401, 1944209, 4624165 ####[address] [address] Platelet 255.0 E9/L Normal 150.0-500.0 [facility] Comment on above: Performed By: #### 2 114267, 78204049, 6658802, 07551196, 7182114, 8124028 ####[address] [address] Platelet mean volume (Bld) [Entitic vol] 7.7 fL Normal 6.4-10.8 [facility] Comment on above: Performed By: #### 2 008803, 25766290, 2570991, 23243590, 9954032, 0921383 ####[address] [address] RBC (Bld) [#/Vol] 4.3 E12/L Normal 4.3-5.9 [facility] Comment on above: Performed By: #### 2 476625, 23837955, 8900521, 03263245, 5902929, 6992403 ####[address] [address] WBC corrected for nucl RBC Auto (Bld) [#/Vol] 6.5 E9/L Normal 4.0-11.0 [facility] Comment on above: Performed By: #### 2 372187, 09567539, 6467303, 39985188, 2988449, 4021871 ####[address] [address] CHEMISTRYOrdered By: SYSTEM SYSTEM on 10-28-2023 Albumin [...] Consent for Treatmenton 10-07 Consent for Treatment [id number] Normal [facility] Discharge Instructionson Discharge Instructions [id number]#[id number] Normal [facility] ED Clinical Summaryon 2023 ED Clinical Summary (Inserted Image. Lucie ble to display) [address] [address] ED Clinical Summary Person Information Name: MITESH BURGESS [facility] Age: 43 Years : 1980 Sex: Female Language: Indonesian PCP: Pepe Alcazar MD Marital Status: Phone: [phone] Visit Id: Visit Reason: Nausea; Abdominal pain; [...] 20:38:26 10/28/2023 20:38:26 10/28/2023 20:38:26 ADDRESS: [address] [place] [id number] PHYS DOC NOTES: MEDICAL INFORMATION: Prescriptions Given: New Medications [id number], [address] [place], [place] [id number], [phone] acetaminophen-oxycodone (acetaminophen-oxycodone 325 mg-5 mg Tab) 1 [...] Address: When: Luis Armando [address], [address], [facility] [address] [place] [address] Business (1) [facility], [address] [place] [address] Business (1) In 3 days 10/31/2023 Comments: Call Dr for diagnosis based follow up With: Address: When: Pepe Alcazar [address] [facility], [place] [address] Business (1) In 3 days DIAGNOSIS: Abdominal pain; Right kidney mass Normal [facility] ED Patient Education Noteon 10-28-2023 ED Patient [...] gives to you. In general: ? Take vojm-vjl-xphmmsn and prescription medicines only as told by [...] Reviewed: 12/19/2020 Elsevier Patient Education ? 2022 OpenSesame. Normal [facility] ED Patient Summaryon 024 ED Patient Summary (Inserted Image. Lucie ble to display) [address] [address] Patient Discharge Instructions Person Information Name: MITESH BURGESS Age: 43 Years Arrival Date: 10/28/2023 17:25:04 Discharge Diagnosis: Abdominal pain; Right kidney mass Primary Care Physician: Pepe Alcazar MD Provider Information Primary Provider: Rosalio Dan DO Advanced Migrant Leader:None The exam and treatment you received in the Emergency Department were for an urgent problem and are not intended as complete care. It is important that you follow up with a doctor, nurse practitioner, or physician?s social services assistant for ongoing care. If your symptoms [...] Instructions: With: Address: When: Luis Armando [address] [place] [address], [address] [address] Business (1) [facility], [address] [place] [address] Business (1) In 3 days 10/31/2023 Comments: Call for diagnosis based follow up With: Address: When: Pepe Alcazar [address] [facility], [facility] [address] [place] [phone] Business (1) In 3 days In the event that this physician does not participate in your insurance network, please consult with your insurance company to find a nearby participating provider. Patient Education Materials: Renal Mass A MESSAGE TO ALL PATIENTS REGARDING OPIOIDS PRESCRIPTION OPIOIDS: WHAT YOU NEED TO KNOW Prescription opioids can be used to help relieve nticvktc-to-kjvvel pain and are often prescribed following a [...] (www.fda.gov/Drugs/Resour cesForYou). (more content not included)... Normal [facility] HEMATOLOGYOrdered By: SYSTEM SYSTEM on 10-28-2023 Basophils/100 [...] 10-28-2023 Albumin [Mass/Vol] 4.1 g/dL Normal 3.3-5.0 [facility] Comment on above: Performed By: #### 2 688897, 70126413, 7169369, 06092506, 2349111, 7988886 ####[facility] [address] [place] [address] Albumin/Globulin (S) [Mass conc ratio] 1.6 Normal 1.1-2.2 [facility] Comment on above: Performed By: #### 2 898578, 28065169, 1399107, 60842354, 4307223, 6198080 ####[facility] [address] [place] [address] ALP [Catalytic activity/Vol] 86 Int._Unit/L Normal 21-98 [facility] Comment on above: Performed By: #### 2 030692, 74757474, 8254989, 83850733, 5908888, 6548044 ####[address] [address] ALT No additional P-5'-P [Catalytic activity/Vol] 10 Int._Unit/L Normal 6-46 [facility] Comment on above: Performed By: #### 2 839004, 06795429, 2893011, 95657615, 9550493, 6871516 ####[place] [address] AST [Catalytic activity/Vol] 10 Int._Unit/L Normal 5-43 [facility] Comment on above: Performed By: #### 2 418924, 76228193, 6428371, 08865457, 9448610, 1096449 ####[address] [address] Bilirubin [Mass/Vol] 0.6 mg/dL Normal 0.0-1.1 [facility] Comment on above: Performed By: #### 2 387077, 20054467, 6615743, 00721509, 0011274, 6565660 ####[place] [address] Bilirubin.direct [Mass/Vol] 0.1 mg/dL Normal 0.0-0.4 [facility] [facility] Comment on above: Performed By: #### 2 [id number], [id number], [id number], [id number], [id number], [id number] ####[place] [id number] Bilirubin.indirect [Mass or moles/Vol] 0.5 mg/dL Normal 0.1-0.9 [facility] Comment on above: Performed By: #### 2 [id number], [id number], [id number], [id number], 7319876, 6112239 ####[address] [address] Globulin (S) [Mass/Vol] 2.5 g/dL Normal 1.4-4.0 [facility] Comment on above: Performed By: #### 2 483403, [id number], 0365602, [id number], 6058002, 3591394 ####[facility] [address] [place] [address] Protein [Mass/Vol] 6.6 g/dL Normal 6.0-7.8 [facility] Comment on above: Performed By: #### 2 878150, 32756186, 7151495, 77624479, 1203293, 4626309 ####[facility] [address] [place] [address] Lipase Levelon 10-28-2023 Lipase [Catalytic activity/Vol] 10 U/L Low 13-58 [facility] Comment on above: Performed By: #### 2 647721, [id number], 0181612, 05847783, 9034893, 9859521 ####[facility] [address] [place] [address] RAD - Preliminary Cat Scan R eporton 10-28-2023 RAD - Preliminary Cat Scan Report [id number]#1.00TIFF Normal [facility] SEROLOGYOrdered By: Miroslava Michael on 10-28-2023 Beta HCG ( test) Ql Negative (10/28/23 6:04 PM) Normal [facility] Man Sero UA with Cult Rflxon 10-28-19 24 Bacteria Auto Ql (U) 1+ CD:[id number] Abnormal Trace [facility] Comment on above: Performed By: #### 4 [id number] ####[facility] [address] [place] [address] Bilirubin Ql (U) 1+ mg/dL Abnormal Negative [facility] Comment on above: Performed By: #### 4 [id number] ####[facility] [address] [place] [address] Clarity (U) Turbid Abnormal Clear [facility] Comment on above: Performed By: #### 4 [id number] ####[facility] [address] [place] [address] Color (U) Yellow Normal Yellow [facility] Comment on above: Result Comment: Micr oscopic readings are only performed on those samples that meet specific criteria set forth by [facility]. Performed By: #### 4 [id number] ####[facility] [address] [place] [address] Epithelial cells.squamous Auto (Urine sed) [#/Area] 5-8 Abnormal 0-2 [facility] Comment on above: Performed By: #### 4 [id number] ####[facility] [address] [place] [address] Glucose Ql (U) Negative Normal Negative [facility] Comment on above: Performed By: #### 4 [id number] ####[facility] [address] [place] [address] Hemoglobin Auto test strip (U) [Mass/Vol] Negative Normal Negative [facility] Comment on above: Performed By: #### 4 [id number] ####[facility] [address] [place] [address] Ketones Auto test strip Ql (U) Negative Normal Negative [facility] Comment on above: Performed By: #### 4 [id number] ####[facility] [address] [place] [address] Leukocyte esterase Auto test strip Ql (U) Negative Normal Negative [facility] Comment on above: Performed By: #### 4 [id number] ####[facility] [address] [place] [address] Mucus Auto Ql (U) Trace Normal Negative [facility] Comment on above: Performed By: #### 4 [id number] ####[facility] [address] [place] [address] Nitrite Auto test strip Ql (U) Negative Normal Negative [facility] Comment on above: Performed By: #### 4 [id number] ####[facility] [address] [place] [address] pH (U) 5.5 [pH] Invalid Interpretation Code 5.0-9.0 [facility] Comment on above: Performed By: #### 4 [id number] ####[facility] [address] [place] [address] Protein Ql (U) Negative Normal Negative [facility] Comment on above: Performed By: #### 4 [id number] ####[address] [address] RBC Ql (U) 0-3 Normal 0-3 [facility] Comment on above: Performed By: #### 4 [id number] ####[address] [address] Specific gravity (U) [Rel density] 1.023 Invalid Interpretation Code 1.005-1.030 [facility] Comment on above: Performed By: #### 4 [id number] ####[address] [address] Urobilinogen (U) [Mass/Vol] Negative Normal Negative [facility] Comment on above: Performed By: #### 4 [id number] ####[facility] [address] [place] [address] WBC Auto (Urine sed) [#/Area] 0-5 Normal 0-5 [facility] Comment on above: Performed By: #### 4 [id number] ####[address] [address] Type of Urine collection method Clean Catch Normal [facility] Comment on above: Performed By: #### 4 [id number] ####[address] [address] URINALYSISOrdered By: SYSTEM SYSTEM on 10-28-2023 Bacteria Auto Ql (U) 1+ graded/HPF Invalid Interpretation Code Tracegraded /HPF [facility] UA Auto SS Bilirubin Ql (U) 1+ mg/dL Invalid Interpretation Code Negativemg/ dL [facility] UA Auto SS Clarity (U) Turbid *ABN* (10/28/23 7:59 PM) Invalid Interpretation Code Clear [facility] UA Auto SS Color (U) Yellow 1 (10/28/23 7:59 PM) Normal Yellow [facility] UA Auto SS Comment on above: Interpretive Data: M icroscopic readings are only performed on those samples that meet specific criteria set forth by [facility]. Epithelial cells.squamous Auto (Urine sed) [#/Area] 5-8 graded/HPF Invalid Interpretation Code 0-2graded/H PF [facility] UA Auto SS Glucose Ql (U) Negative Normal Negativemg/ dL [facility] UA Auto SS Hemoglobin Auto test strip [...] strip Ql (U) Negative Normal Negativemg/ dL [facility] UA Auto SS pH (U) 5.5 *NA* (10/28/23 7:59 PM) Invalid Interpretation Code 5.0 - 9.0 [facility] UA Auto SS Protein Ql (U) Negative Normal Negativemg/ dL [facility] UA Auto SS RBC Ql (U) 0-3 graded/HPF Normal 0-3graded/H PF [facility] UA Auto SS Specific gravity (U) [Rel density] 1.023 *NA* (10/28/23 7:59 PM) Invalid Interpretation Code 1.005 - 1.030 [facility] UA Auto SS Urobilinogen (U) [Mass/Vol] Negative Normal Negativemg/ dL [facility] UA Auto SS WBC Auto (Urine sed) [#/Area] 0-5 graded/HPF Normal 0-5graded/H PF [facility] UA Auto SS URINALYSISOrdered By: Daniel moreno on 10-28-2023 UA Spec Desc Clean Catch (10/28/23 7:59 PM) Normal [facility] UA Auto SS Work Phone: eGFRon 10-28-2023 eGFR 81 mL/min/1.73 m2 Normal >=59 [facility] Comment on above: Order Comment: Order added by Discern Expert. Performed By: #### 2 [id number], 01273259, 8177958, 95895358, 7443330, 7981146 ####[facility] [address] [place] [address] Consent for Treatmenton 09-06 Consent for Treatment [id number]#1.00TIFF Normal [facility] Discharge Instructionson Discharge Instructions [id number]#1.00TIFF Normal [facility] ED Clinical Summaryon 2023 ED Clinical Summary (Inserted Image. Lucie ble to display) [address] [address] ED Clinical Summary Person Information Name: MITESH [facility]ESS [facility] Age[facility] 43 Years : 1980 Sex: Female Language: Indonesian PCP: Pepe Alcazar MD Marital Status: Phone: [phone] Visit Id: Visit Reason: Sinus Pain/Congestion; Throat [...] 02:27:06 ADDRESS: [address] [place] [id number] PHYS DOC NOTES: MEDICAL INFORMATION: Prescriptions Given: New Medications [id number], [address] [place] [id number], [phone] brompheniramine/dextromet horphan/PSE (Bromfed DM oral syrup) 5 [...] Follow up: With: Address: When: Pepe Alcazar [address] [place] [address], [facility] [place] [phone] Business (1) In 7 days 10/05/2023, only if needed DIAGNOSIS: Cough Normal [facility] ED Note-Physicianon 09-28-19 ED Note-Physician Basic [...] course of cefdinir. She was also taking jadx-clv-zbnulwj sinus medications. She states that her sinuses [...] and Complexity of Problems Differential Diagnosis: [] [facility] Data External documents reviewed: N/A My [...] and congestion, 200 mL, Refill(s) 0, [id number], 160, cm, 09/28/23 1:17:00 EDT, Height/Length Dosing, 97.9, kg, 09/28/23 1:17:00 EDT, Weight Dosing dexamethasone, 10 mg = 2.5 mL, Injection, Oral, Once, Stop date 09/28/23 2:17:00 EDT, STAT, Start date 09/28/23 2:17:00 EDT, 09/28/23 2:17:00 EDT Influenza A&B Ag Rapid COVID Antigen ([facility]) XR Chest 2 Views Disposition Plan Discharge Prescription List Prescriptions Bromfed DM oral syrup, 5 mL, Oral, QID, PRN Follow-up With When Contact Information Pepe Alcazar In 7 days 10/05/2023 EDT, only if needed [address] Business (1) Additional Instructions: Patient Education Cough, [...] 1 tab(s) (more content not included)... Normal [facility] Comment on above: Result Comment: Elec [...] these instructions at home: Medicines ? Take bdxm-kzo-lurnrwh and prescription medicines only as told by [...] a condition that needs treatment. ? Take pigp-ntb-kggbanx and prescription medicines only as told by [...] provider. Document Revised: 07/13/2019 Document Reviewed: 07/13/2019 [employer]pp[employer] Patient Education ? 2022 [employer] Normal [facility] ED Patient Summaryon 024 ED Patient Summary (Inserted Image. Lucie ble to display) [address] [address] Patient Discharge Instructions Person Information Name: MITESH BURGESS Age: 43 Years Arrival Date: 09/28/2023 01:06:05 Discharge Diagnosis: Cough Primary Care Physician: Pepe Alcazar MD Provider Information Primary Provider: Dandy Ashton DO Advanced Migrant Leader:None The exam and treatment you received in the Emergency Department were for an urgent problem and are not intended as complete care. It is important that you follow up with a doctor, nurse practitioner, or physician?s social services assistant for ongoing care. If your symptoms become worse or you do not improve as expected and you are unable to reach your usual health care provider, you should return to the Emergency Department. We are available 24 hours a day. MITESH BURGESS has been given the following list of patient education materials, prescriptions and follow-up instructions: Follow-up Instructions: With: Address: When: Pepe Hartdank [address] [place] [address] [place] [phone] Business (1) In 7 days 10/05/2023, only if needed In the event that this physician does not participate in your insurance network, please consult with your insurance company to find a nearby participating provider. Patient Education Materials: Hong Romo A MESSAGE TO ALL PATIENTS REGARDING OPIOIDS PRESCRIPTION OPIOIDS: WHAT YOU NEED TO KNOW Prescription opioids can be used to help relieve rgldwqvu-le-eglogc pain and are often prescribed following a [...] be struggling with addiction, tell your health animal care giver and ask for guidance or call [employer]?S National Helpline at 3-157-540-HELP. v Source: [place] Department of (more content not included)... Normal [facility] Influenza A&B Agon 4 Influenzae A Ag Negative Normal Negative [facility] Comment on above: Performed By: #### 2 [id number], [id number] ####[facility] [address] [place] [address] Influenzae B Ag Negative Normal Negative [facility] Comment on above: Result Comment: Test sensitivity and specificity vary for age group, specimen type, antigen types, and prevalence of disease. Test results must be evaluated in conjunction with other clinical data available to the physician. Individuals who received nasally administered Influenza A vaccine may have positive test results up to 3 days after vaccination. Performed By: #### 2 [id number], [id number] ####[facility] [address] [place] [address] MICRO OTHER TESTSOrdered By: Hank Noel on 09-28-2023 Influenzae A Ag Negative (09/28/23 1:41 AM) Normal Negative [facility] Man Sero Influenzae B Ag Negative 1 (09/28/23 1:41 AM) Normal Negative [facility] Sero Comment on above: Interpretive Data: T [...] NEG Ctl Pass (09/28/23 1:41 AM) Normal [facility] Man Sero Rapid COV Int POS Ctl Pass (09/28/23 1:41 AM) Normal [facility] Sero SARS-CoV+SARS-CoV-2 (COVID-19) Ag IA.rapid Ql (Resp) Not Detected 2 (09/28/23 1:41 AM) Normal Not Detected [facility] Sero Comment on above: Interpretive Data: T he [employer] Veritor System for Rapid Detection of SARS-CoV-2 [...] sooner. Prescriptions/Work Noteson 0 09-28-2023 Prescriptions/Work Notes [id number]#1.00TIFF Normal [facility] Rapid COVID Antigen ([facility])on 09-28-2023 Rapid COV Int NEG Ctl Pass Normal [facility] Comment on above: Performed By: #### 2 [id number], [id number] ####[facility] [address] [place] [address] Rapid COV Int POS Ctl Pass Normal [facility] Comment on above: Performed By: #### 2 [id number], [id number] ####[facility] [address] [place] [address] SARS-CoV+SARS-CoV-2 (COVID-19) Ag IA.rapid Ql (Resp) Not detected Normal Not Detected [facility] Comment on above: Result Comment: The BD Veritor? System for Rapid Detection of SARS-CoV-2 is [...] or revoked sooner. Performed By: #### 2 [id number], [id number] ####[facility] [address] [place] [address] XR Chest 2 Viewson XR Chest 2 [...] mGy = na DAP = na Normal [facility] Monitor Recordon 09-18-2023 Monitor Record [id number]#1.00TIFF Normal [facility] Consent for Treatmenton 09-05 Consent for Treatment [id number]#1.00TIFF Normal [facility] ED Clinical Summaryon 2023 ED Clinical Summary (Inserted Image. Lucie ble to display) [place] [id number] ED Clinical Summary Person Information Name: MITESH BURGESS [facility]ie/[facility] Age: 43 Years : 1980 Sex: Female Language: Indonesian PCP: Pepe Alcazar MD Marital Status: Phone: [phone] Visit Id: Visit Reason: Anxiety; Headache; PANIC [...] 09/17/2023 23:38:36 09/17/2023 23:38:36 09/17/2023 23:38:36 ADDRESS: [address] [place] [address] [address] [id number] [facility] DOC NOTES: MEDICAL INFORMATION: Prescriptions Given: [...] Follow up: With: Address: When: Pepe Alcazar [address] [place] [address], [facility] [place] [phone] Business (1) In 3 days DIAGNOSIS: Headache Normal [facility] ED Note-Physicianon 09-17-19 ED Note-Physician Basic Information Time Seen: Dandy Ashton DO 09/17/2023 20:40 Chief Complaint Pt. presents to the ed with c/o headache and panick attack. Pt. 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 pt. is alert and oriented x 4 [...] and Complexity of Problems Differential Diagnosis: [] [facility] Data External documents reviewed: N/A My [...] Information Pepe Alcazar In 3 days [address] [facility] [address] [place] [phone]- Business (1) Additional Instructions: Patient Education General [...] guidance ( (more content not included)... Normal [facility] Comment on above: Result Comment: Elec tronically Signed By: Dandy Ashton DO\.br\Date and Time Signed: 09/17/23 23:21 EDT ED Patient Education Noteon 09-17-2023 ED Patient Education Note Neurology General Headache [...] with your condition: Managing pain ? Take untr-dtv-lycrgsy and prescription medicines only as told by [...] Reviewed: 11/22/2021 Elsevier Patient Education ? 2022 [employer] Normal [facility] ED Patient Summaryon 024 ED Patient Summary (Inserted Image. Lucie ble to display) [address] [address] Patient Discharge Instructions Person Information Name: MITESH BURGESS Age: 43 Years Arrival Date: 09/17/2023 20:38:29 Discharge Diagnosis: Headache Primary Care Physician: Pepe Alcazar MD Provider Information Primary Provider: Dandy Ashton DO Advanced Migrant Leader:None The exam and treatment you received in the Emergency Department were for an urgent problem and are not intended as complete care. It is important that you follow up with a doctor, nurse practitioner, or physician?s social services assistant for ongoing care. If your symptoms [...] Follow-up Instructions: With: Address: When: Pepe Alcazar [address] [place] [address], [place] [address] Business (1) In 3 days In the event that this physician does not participate in your insurance network, please consult with your insurance company to find a nearby participating provider. Patient Education Materials: General Headache Without Cause A MESSAGE TO ALL PATIENTS REGARDING OPIOIDS PRESCRIPTION OPIOIDS: WHAT YOU NEED TO KNOW Prescription opioids can be used to help relieve kxthqzmo-ub-tuoovk pain and are often prescribed following a [...] be struggling with addiction, tell your health animal care giver and ask for guidance or call [facility]?S National Helpline at 7-699-746-XFSB. v Source: Department of [facility] (more content not included)... Normal [facility] Monitor Recordon 09-17-2023 Monitor Record [id number]#1.00TIFF Normal [facility] Nonvisit Note - PTon 024 Nonvisit Note - PT Patient cancelled to day's PT session. 08-21-23 hf, pt stated that she hasn't been able to get an tyre retreader in. cxl last two apts. 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 Normal [facility] Nonvisit Note - PTon 024 Nonvisit Note - PT Pt. cancelled PT appointment on 08/08/23. States she twisted wrong and is in a lot of pain. Next appointment confirmed. Normal [facility] Nonvisit Note - PTon 024 Nonvisit Note - PT Patient cancelled to day's PT appointment, no reason given to PURCHASING CONTRACTING CLERK. [facility] PT - [place] 08-02-2023 PT - Orders [id number]#1.00TIFF Normal [facility] Insurance Correspondenceon 0 07-30-2023 Insurance Correspondence caresonellie- [facility] Reference #: [id number] approved for 72 units of PT - DOS 07/30/2023-10/04/2023 CPT [id number],[id number],[id number],[id number],[id number] Reference #: [id number] Description: Outpatient Elective Place Of Service: [address] [facility] Submitting Provider: [facility] Requesting/Ordering Provider: [facility], [facility] Servicing/Rendering Provider: [facility], [facility] Facility: Member Information Member Name: Mitesh Patel Id: [id number] Date: 1980 Gender: Female Service Event Diagnosis Code: M54.16 Radiculopathy, lumbar region Procedure: PT - Physical Therapy, Outpatient Line #1 Requested Received Date: 07/30/2023 12:17:22 PM Requested Units: 72 Start Date of Service: 07/30/2023 Authorized Units: 72 End Date of Service: 10/04/2023 Status: Approved Service Event Diagnosis Code: M54.16 Radiculopathy, lumbar region Procedure: 11525 Therapeutic procedure, 1 or more areas, each 15 minutes; aquatic therapy with therapeutic exercises Line #1 Requested Received Date: 07/30/2023 12:17:22 PM Requested Units: 72 Start Date of Service: 07/30/2023 Authorized Units: 72 End Date of Service: 10/04/2023 Status: Approved Service Event Diagnosis Code: M54.16 Radiculopathy, lumbar region Procedure: 84912 Therapeutic procedure, 1 or more areas, each 15 minutes; gait training (includes stair climbing) Line #1 Requested Received Date: 07/30/2023 12:17:22 PM Requested Units: 72 Start Date of Service: 07/30/2023 Authorized Units: 72 End Date of Service: 10/04/2023 Status: Approved Service Event Diagnosis Code: M54.16 Radiculopathy, lumbar region Procedure: 06819 Manual therapy techniques (eg, mobilization/ manipulation, manual lymphatic drainage, manual traction), 1 or more regions, each 15 minutes Line #1 Requested Received Date: 07/30/2023 12:17:22 PM Requested Units: 72 Start Date of Service: 07/30/2023 Authorized Units: 72 End Date of Service: 10/04/2023 Status: Approved Service Event Diagnosis Code: M54.16 Radiculopathy, lumbar region Procedure: 86162 Application of a modality to 1 or more areas; traction, mechanical Line #1 Requested Received Date: 07/30/2023 12:17:22 PM Requested Units: 72 Start Date of Service: 07/30/2023 Authorized Units: 72 End Date of Service: 10/04/2023 Status: Approved Service Event Diagnosis Code: M54.16 Radiculopathy, lumbar region Procedure: 88876 Application of a modality to 1 or more areas; ultrasound, each 15 minutes Line #1 Requested Received Date: 07/30/2023 12:17:22 PM Requested Units: 72 Start Date of Service: 07/30/2023 Authorized Units: 72 End Date of Service: 10/04/2023 Status: Approved Service Event Diagnosis Code: M54.16 Radiculopathy, lumbar region Procedure: 41659 Application of a modality to 1 or more areas; electrical stimulation (manual), each 15 minutes Line #1 Requested Received Date: 07/30/2023 12:17:22 PM Requested Units: 72 Start Date of Service: 07/30/2023 Authorized Units: 72 End Date of Service: 10/04/2023 Status: Approved Service Event Diagnosis Code: M54.16 Radiculopathy, lumbar region Procedure: 66744 Therapeutic procedure, 1 or more areas, each 15 minutes; therapeutic exercises to develop strength and endurance, range of motion and flexibility Line #1 Requested Received Date: 07/30/2023 12:17:22 PM Requested Units: 72 Start Date of Service: 07/30/2023 Authorized Units: 72 End Date of Service: 10/04/2023 Status: Approved [employer] CAREERS Invalid Interpretation Code Troppin. SueEasy [facility] Consent for Treatmenton 07-09 Consent for Treatment [id number]#1.00TIFF Normal [facility] PT - Assessmentson PT - Assessments [id number]#1.00TIFF [facility] PT - Consentson 07-29-2023 PT - Consents [id number]#1.00TIFF [facility] PT - [place] 07-29-2023 PT - Orders [id number]#1.00TIFF [facility] Nonvisit Note - PTon 024 Nonvisit Note - PT chart reviewed with eval prepped for scheduled eval. [facility] Nonvisit Note - PTon 023 Nonvisit Note - PT chart reviewed with eval prepped for scheduled eval. [facility] Orders Officeon 06-21-2023 Orders Office [id number]#1.00TIFF [facility] Consent for Treatmenton Consent for Treatment [id number]#1.00TIFF [facility] Consultation Noteon 06-10-20 Consultation Note Patient: MITESH BURGESS Age: 43 years Sex: Female : 1980 Associated Diagnoses: None Author: Ade Talamantes PA-C Subjective Chief complaint 06/10/2023 15:08 EST [...] BID, # 60 cap(s), Refills(s) 1, Pharmacy: [facility]/pharmacy #[id number], 161, cm, 06/10/23 15:18:00 EST, Height/Length Dosing, 95.2, kg, 04/19/23 8:29:00 EDT, Weight Dosing albuterol HFA 90 mcg/inh MDI: 2 puff(s), Inhalation, QID Shortness of breath or wheezing, 1 EA, Refill(s) 0, qid and prn sob/wheezing, [facility]/pharmacy #[id number], 160, cm, 04/27/20 22:06:00 EDT, Height/Length Dosing, 98, kg, 04/27/20 22:06:00 EDT, Weight Dosing methocarbamol 500 mg Tab: 500 mg = 1 tab(s), Oral, TID, PRN Spasm, X 30 day(s), # 90 tab(s), Refills(s) 2, Pharmacy: [facility]/pharmacy #[id number], 161, cm, 06/10/23 15:18:00 [...] 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 Resolved due to patient discharge. Resolved: Migraine / SNOMED CT 55174178 Resolved: Seasonal allergies / SNOMED CT [id number]-9 [id number] Objective Vital Signs 06/10/2023 15:08 EST Peripheral Pulse Rate 76 bpm Respiratory Rate 18 br/min Systolic Blood Pressure 117 mmHg Diastolic Blood Pressure 69 mmHg Mean Arterial Pressure, Cuff 85 mmHg General: Alert and oriented, No acute distress. Eye: Normal conjunctiva. HENT: Normocephalic, Normal hearing. Cardiovascular: No edema. Musculoskeletal Normal range of motion. Normal strength. 5/5 lower extremity strength Integumentary: Warm, Dry, [place]. Injection site well-healed Neurologic: Alert, Oriented. Psychiatric: Cooperative, Appropriate mood & affect. Imp (more content not included)... [facility] Comment on above: Result Comment: Elec tronically Signed By: Ade Talamantes PA-C\.br\Date and Time Signed: 06/10/23 15:27 EST\.br\Electronically Co-Signed By: Hai AJY, Boy Wilson\.br\Date and Time Co-Signed: 06/13/23 10:59 EST Office/Clinic Note-Physician on 06-10-2023 Office/Clinic Note-Physician [id number]#1.00TIF F [facility] Patient Correspondenceon Patient Correspondence [id number]#1.00TIF F [facility] Patient Correspondence [id number]#1.00TIF F [facility] Patient History Officeon Patient History Office [id number]#1.00TIF F [facility] CNOVon 05-08-2023 CNOV Office Visit (NEADFV ) ----- MITESH BURGESS ([id number]) 1980 F Date Time Provider Department 05/08/23 2:30 PM STALIN REYES During your visit today, we recorded the following information about you: Pulse Blood pressure Weight Height 67/minute 111/66 97.2 kg 1.6 m Stalin Reyes MD 05/08/2023 3:40 PM Signed [facility] General Neurology Follow up/ Established patient visit Individuals who were included in, or assisted with the encounter were: Mitesh Burgess Stalin Reyes MD Chief Complaint/Issues: Mitesh Burgess is a 43 year old R handed female w [facility] chronic migraine stopped Emgality half year ago, anxiety, depression, skull mass, seen in the [facility] for General Neurology for: Dizziness, headache and tremor Most Recent Neurological Assessment and Plan: Last Filed Values Date of Most Recent Assessment and Plan 12/17/22 Specialty General Neurology Assessment Mitesh Burgess is a 42 year old R handed female w H chronic migraine stopped Emgality half year ago, anxiety, depression, skull mass, seen in the [facility] for General Neurology for: 1. Dizziness, headache [...] pain management. Her pain management is absent [facility]. She has been on Lyrica 300 [...] no acute (more content not included)... Normal [facility] Consent for Procedure/Surger yon 05-07-2023 Consent for Procedure/Surgery [id number]#1.00TIFF [facility] Consent for Treatmenton 04-09 Consent for Treatment [id number]#1.00TIFF [facility] Discharge Instructionson Discharge Instructions [id number]#1.00TIFF [facility] IntraOperative Documentson 1 IntraOperative Documents [id number]#1.00TIFF [facility] Main OR Intraoperative Recor don 05-07-2023 Main OR Intraoperative Record IntraOp Document Type FTPM Summary Primary Physician: Boy Valles MD Finalized Date/Time: 05/07/23 09:17:26 Pt. Name: MITESH BURGESS/Sex: 1980 Female Med Rec #: [id number] Physician: Boy Valles MD Financial #: [id number] Pt. Type: P Room/Bed: / Admit/Disch: 05/07/23 07:41:17 - Institution: Case Times FTPM Entry 1 Patient Times In Room 05/07/23 09:11:00 Out Room 05/07/23 09:18:00 Procedure Times Start 05/07/23 09:14:00 Stop 05/07/23 09:17:00 Anesthesia Times Last Modified By: Heaven Butts RN 05/07/23 09:17:09 Case Attendance FTPM Entry 1 Entry 2 Entry 3 Case Attendee Hai JAY, Boy Butts RN, Heaven Pires RN, Brandi Samuel Role Performed Surgeon - Primary Tugboat Engineer - Primary Scrub - Primary Time In 05/07/23 09:11:00 05/07/23 09:11:00 05/07/23 09:11:00 Time Out 05/07/23 09:18:00 05/07/23 09:18:00 05/07/23 09:18:00 Procedure TRANSFORAMINAL EPIDURAL TRANSFORAMINAL EPIDURAL TRANSFORAMINAL EPIDURAL STEROID INJECTIO(Left) STEROID INJECTIO(Left) STEROID INJECTIO(Left) Comments Last Modified By: Benjamín DOUGLAS, Heaven Butts RN, Heaven Arguello RN 05/07/23 09:17:10 05/07/23 09:17:10 05/07/23 09:17:10 Entry 4 Case Attendee Nish Walker Role Performed Lead Principal Technical Architect Time In 05/07/23 09:11:00 Time Out 05/07/23 [...] X-ray Applicable) PreOp Antibiotic No Time Out Benjamín DOUGLAS, Heaven Marie, Given Participants Pranay DOUGLAS, Brandi Samuel, Hai JAY, Aaron Matamoros Bryce Time Out Complete 05/07/23 [...] and tissue Entry 1 Skin Integrity Intact, [place], Warm, and Skin Abnormality No Dry Outcomes [...] Points Check (more content not included)... Normal [facility] Main OR Preoperative Recordo n 05-07-2023 Main OR Preoperative Record Holding Area Document Type FTPM Summary Primary Physician: Boy Valles MD Finalized Date/Time: 05/07/23 08:11:41 Pt. Name: DANIEL BURGESSKIKI Bee/Sex: 1980 Female Med Rec #: [id number] Physician: Boy Valles MD Financial #: [id number] Pt. Type: P Room/Bed: / Admit/Disch: 05/07/23 [...] By: Gaby Ambrocio RN 05/07/23 08:11 Normal [facility] Operative Reporton Operative Report Patient: MITESH BURGESS [...] EDT Respiratory Rate 16 br/min . Normal [facility] Comment on above: Result Comment: Elec tronically Signed By: Hai JAY, Boy Wilson\.br\Date and Time Signed: 05/07/23 09:17 EDT Patient Correspondenceon Patient Correspondence [id number]#1.00TIFF Normal [facility] Insurance Correspondence Off iceon 04-23-2023 Insurance Correspondence Office [id number]#2.00TIFF Normal [facility] Consent for Treatmenton 04-07 Consent for Treatment [id number]#1.00TIFF Normal [facility] Consultation Noteon 04-19-20 Consultation Note Patient: MITESH BURGESS Age: 43 years Sex: Female : 1980 Associated Diagnoses: None Author: Ade Talamantes PA-C Subjective Chief complaint 04/19/2023 8:17 EDT [...] EA, Refill(s) 0, qid and prn sob/wheezing, [facility]/pharmacy #[id number], 160, cm, 04/27/20 22:06:00 EDT, Height/Length Dosing, 98, kg, 04/27/20 22:06:00 EDT, Weight Dosing off work: off work, See Instructions, 1 EA, 0, Patient had a procedure with our services. She should be excused from work for 10/30/21 and 10/31/21, Supply pregabalin 225 mg oral capsule: 225 mg = 1 cap(s), Oral, BID, # 60 cap(s), Refills(s) 2, Pharmacy: [facility]/pharmacy #[id number], 158, cm, 08/31/22 9:15:00 EST, Height/Length Dosing, 91.6, kg, 05/18/22 11:25:00 EST, Weight Dosing pregabalin 300 mg Cap: 300 mg = 1 cap(s), Oral, BID, # 60 cap(s), Refills(s) 1, Pharmacy: [facility]/pharmacy #[id number], 158, cm, 10/01/22 10:45:00 [...] cyst of lumbar spine / SNOMED CT 1498597251 / Confirmed Neuropathy / SNOMED CT 7422974952 / Confirmed Ascending aorta dilation / SNOMED CT 597065000 / Confirmed Anxiety / SNOMED CT 35145781 / Confirmed Bipolar disorder / SNOMED CT 85299047 / Confirmed Labral tear of shoulder / SNOMED CT 515798109 / Confirmed Resolved: At risk for falls / SNOMED CT 139088207 Problem added when Risk for Falls Careplan was initiated. Resolved due to patient discharge. Resolved: Migraine / SNOMED CT 53809501 Resolved: Seasonal allergies / SNOMED CT [id number]-[id number] Objective Vital Signs 04/19/2023 8:17 EDT Peripheral [...] seated straight leg raise Integumentary: Warm, Dry, [place]. Neurologic: Alert, Oriented. Psychi (more content not included)... Normal [facility] Comment on above: Result Comment: Elec tronically Signed By: Ade Talamantes PA-C\.br\Date and Time Signed: 04/19/23 08:55 EDT\.br\Electronically Co-Signed By: Hai JAY, Boy Wilson\.br\Date and Time Co-Signed: 04/23/23 12:36 EDT Office/Clinic Note-Physician on 04-19-2023 Office/Clinic Note-Physician [id number]#1.00TIFF Normal [facility] Patient Correspondenceon Patient Correspondence [id number]#1.00TIFF Normal [facility] Patient Correspondence [id number]#1.00TIFF Normal [facility] Patient History Officeon Patient History Office [id number]#1.00TIFF [facility] Discharge Instructionson Discharge Instructions [id number]#1.00CD:1 27 Normal [facility] ED Clinical Summaryon 2022 ED Clinical Summary (Inserted Image. Lucie ble to display) [address] [address] ED Clinical Summary Person Information Name: MITESH BURGESS [facility] Age: 42 Years : 1980 Sex: Female Language: Indonesian PCP: Pepe Alcazar MD Marital Status: Phone: [phone] Visit Id: Visit Reason: Headache; Nausea; HEADACHE [...] 01:14:43 03/15/2023 01:14:43 03/15/2023 01:14:43 ADDRESS: [address] [place] [id number] PHYS DOC NOTES: MEDICAL INFORMATION: Prescriptions Given: [...] Follow up: With: Address: When: Pepe Alcazar [facility], [address] [place] [id number] Business (1) In 3 days 03/18/2023 Comments: Return to the emergency room if your headache recurs or any new symptoms. DIAGNOSIS: 1:Migraine headache Normal [facility] ED Note-Physicianon 03-15-20 ED Note-Physician Basic [...] and Complexity of Problems Differential Diagnosis: [] [facility] Data External documents reviewed: [] My [...] Contact Information Pepe Alcazar In 3 days 03/18/2023 EDT [address] [facility] [address] [place] [id number]- Business (1) Additional Instructions: Return to the [...] Cholecystectomy (12/07/2003), (more content not included)... Normal [facility] Comment on above: Result Comment: Elec [...] these instructions at home: Medicines ? Take usjm-bnb-ldcfeym and prescription medicines only as told by your health care provider. ? Ask your health care provider if the medicine prescribed to you: ? Requires you to avoid driving or using heavy machinery. ? Can cause constipation. You may need to take these actions to prevent or treat constipation: ? Drink enough fluid to keep your urine pale yellow. ? Take idbt-xwc-stzgxjb or prescription medicines. ? Eat foods that [...] different or (more content not included)... Normal [facility] ED Patient Summaryon 023 ED Patient Summary (Inserted Image. Lucie ble to display) [place] [id number] Patient Discharge Instructions Person Information Name: MITESH BURGESS Age: 42 Years Arrival Date: 03/14/2023 21:26:36 Discharge Diagnosis: 1:Migraine headache Primary Care Physician: Pepe Alcazar MD Provider Information Primary Provider: Chandni Hart M.D. Advanced Migrant Leader:None The exam and treatment you received in the Emergency Department were for an urgent problem and are not intended as complete care. It is important that you follow up with a doctor, nurse practitioner, or physician?s social services assistant for ongoing care. If your symptoms [...] Follow-up Instructions: With: Address: When: Pepe Alcazar [address] [place] [address], [facility] [place] [phone] Business (1) In 3 days 03/18/2023 Comments: [...] opioids can be used to help relieve hgnuzqwi-bc-ddkozu pain and are often prescribed following a [...] be struggling with addiction, tell your health animal care giver and ask for stacie (more content not included)... [facility] Prescriptions/Work Noteson 0 03-15-2023 Prescriptions/Work Notes [id number]#1.00CD:1 27 [facility] Consent for Treatmenton Consent for Treatment [id number]#1.00CD:12 7 Elissa [facility] CNOVhipolito 12-17-2022 CNOV Office Visit (NEADFV ) ----- MITESH BURGESS ([id number]) 1980 F Date Time Provider Department 12/17/22 1:30 PM STALIN REYES During your visit today, we recorded the following information about you: Pulse Blood pressure Weight Height 71/minute 103/72 101.2 kg 1.6 ky Reyes MD 12/17/2022 2:28 PM Signed [facility] General Neurology Follow up/ Established patient visit Individuals who were included in, or assisted with the encounter were: Mitesh Reyes MD Chief Complaint/Issues: Mitesh Burgess is a 42 year old R handed female w H chronic migraine stopped Emgality half year ago, anxiety, depression, skull mass, seen in the [facility] for General Neurology for: Dizziness, headache and [...] - General Neurology, Stalin Reyes MD ASSESSMENT Miteshkiki Burgess is a 42 year old R handed female w PMH chronic migraine stopped Emgality half year ago, anxiety, depression, skull mass, seen in the [facility] for General Neurology for: 1. Dizziness, headache [...] without contra (more content not included)... Normal [facility] Office Visiton 10-13-2022 Follow-up visit [id number] Georgia Burgess 1980 F Date Provider Department Center 10/13/2022 EDUARDO BLAND MP ORTHO MPORTHO No family history on file Level of Service:72059 [place] OFFICE/OUTPATIENT ESTABLISHED MOD MDM 30-39 MIN (57,GC) Reason for Visit and Comments: Follow-up [549164] Normal [facility] CHEMISTRYOrdered By: SYSTEM SYSTEM on 09-20-2022 Albumin [...] Normal 4.0 - 11.0 E9/L FT HemeAutoSS Office Visiton 08-28-2022 Follow-up visit [id number] Georgia Burgess 1980 F Date Provider Department Center 08/28/2022 EDUARDO BLAND ORTHO MPORTHO No family history on file Level of Service:66485 [place] OFFICE/OUTPATIENT NEW LOW MDM 30-44 MINUTES (25) Reason for Visit and Comments: Pain [136] Normal [facility] US KIDNEYSon 08-27-2022 US KIDNEYS Begin Addendum [...] kidneys and bladder was performed by the gravel wheeler. Photographer'S Model static images are submitted for review. FINDINGS: [...] renal calculi. 3. No hydronephrosis. Normal [facility]on SARS-CoV-2 (COVID-19) RNA JAYNE+probe Ql (Unsp spec) Not detected Normal NOT DETECTED [facility] Comment on above: Result Comment: This test is not yet approved or cleared by the [place] FDA. When there are no FDA-approved or cleared tests available, and other criteria are met, FDA can make tests available under an emergency access mechanism called an Emergency Use Authorization (EUA). The EUA for this test is supported by the [place] [employer] of Health and Human Service's (HHS's) declaration [...] L IPID, URIC, CMP, T7, TSH #### [facility] [address] [place] [address] Dr. Alejandra Crystal INFLUENZA A AND B AGon 08-16 INFLUANEGH SEE BELOW Normal [facility] Comment on above: Result Comment: Nega tive for Flu A protein angiten. Infection due to Flu A cannot be ruled out. Flu A angiten in the sample may be below the detection limit of the test. Performed By: #### O BSCRN #### [facility] [address] [place] [address] Dr. Alejandra Crystal INFLUBNEGH SEE BELOW Normal [facility] Comment on above: Result Comment: Nega tive for Flu B protein antigen. Infection due to Flu B cannot be ruled out. Flu B antigen in the sample may be below the detection limit of the test. Performed By: #### O BSCRN #### [facility] [address] [place] [address] Dr. Alejandra Crystal INFLUENZA A AG Negative Normal NEGATIVE SEE COMMENT [facility] Comment on above: Performed By: #### O BSCRN #### [facility] [address] [place] [address] Dr. Alejandra Crystal INFLUENZA B AG Negative Normal NEGATIVE SEE COMMENT [facility] Comment on above: Performed By: #### O BSCRN #### [facility] [address] [place] [address] Dr. Alejandra Crystal MRI SHOULDER LT WO [...] by: CHAY MENDOZA Date: 2022-08-13 15:18 Normal [facility] XR ARTHRO SHOULDER LTon 02-0 XR [...] CHAY MENDOZA Date: 2022-08-13 15:07 Normal [facility] PCR [facility]on 05-10 SARS-CoV-2 (COVID-19) RNA JAYNE+probe Ql (Unsp spec) Not detected Normal NOT DETECTED [facility] Comment on above: Result Comment: This test is not yet approved or cleared by the [place] FDA. When there are no FDA-approved or cleared tests available, and other criteria are met, FDA can make tests available under an emergency access mechanism called an Emergency Use Authorization (EUA). The EUA for this test is supported by the [place] [employer] of Health and Human Service's (HHS's) declaration [...] L IPID, URIC, CMP, T7, TSH #### [facility] [address] [place] [address] Dr. Alejandra Crystal INFLUENZA A AND B AGon 06-06 INFLUANEGH SEE BELOW Normal [facility] Comment on above: Result Comment: Nega tive for Flu A protein angiten. Infection due to Flu A cannot be ruled out. Flu A angiten in the sample may be below the detection limit of the test. Performed By: #### I NFLUAB #### [facility] [address] [place] [address] Dr. Alejandra Crystal INFLUBNEGH SEE BELOW Normal [facility] Comment on above: Result Comment: Nega tive for Flu B protein antigen. Infection due to Flu B cannot be ruled out. Flu B antigen in the sample may be below the detection limit of the test. Performed By: #### I NFLUAB #### [facility] [address] [place] [address] Dr. Alejandra Crystal INFLUENZA A AG Negative Normal NEGATIVE SEE COMMENT [facility] Comment on above: Performed By: #### I NFLUAB #### [facility] [address] [place] [address] Dr. Alejandra Crystal INFLUENZA B AG Negative Normal NEGATIVE SEE COMMENT [facility] Comment on above: Performed By: #### I NFLUAB #### [facility] [address] [place] [address] Dr. Alejandra Crystal INTERNAL CONTROLS Within Normal Limits Normal Wi thin Normal Limits [facility] Comment on above: Performed By: #### I NFLUAB #### [facility] [address] [place] [address] Dr. Alejandra Crystal MRI ABDOMEN WO W [...] CHAY MENDOZA Date: 2022-05-31 09:57 Normal [facility] INSULINon 05-30-2022 Insulin 23.8 uIU/mL Normal 2.6-24.9 [facility] Comment on above: Performed By: #### I NSULIN #### [facility] [address] [place] [address] Dr. Alejandra Crystal CBC AUTO DIFFon 05-29-2022 BASO # 0.0 103/ul Normal 0.0-0.1 [facility] Comment on above: Performed By: #### C BC #### [facility] [address] [place] [address] Dr. Alejandra Crystal Basophils/100 WBC (Bld) 0.6 % Normal 0.2-2.0 [facility] Comment on above: Performed By: #### C BC #### [facility] [address] [place] [address] Dr. Alejandra Crystal EO # 0.1 103/ul Normal 0.0-0.7 [facility] Comment on above: Performed By: #### C BC #### [facility] [address] [place] [address] Dr. Alejandra Crystal Eosinophils/100 WBC (Bld) 1.3 % Normal 0.9-7.0 [facility] Comment on above: Performed By: #### C BC #### [facility] [address] [place] [address] Dr. Alejandra Crystal Erythrocyte distribution width (RBC) [Ratio] 12.5 % Normal 11.0-15.0 [facility] Comment on above: Performed By: #### C BC #### [facility] [address] [place] [address] Dr. Alejandra Crystal Hematocrit (Bld) [Volume fraction] 41.2 % Normal 36.0-48.0 [facility] Comment on above: Performed By: #### C BC #### [facility] [address] [place] [address] Dr. Alejandra Crystal Hemoglobin (Bld) [Mass/Vol] 14.4 g/dL Normal 12.0-16.0 [facility] Comment on above: Performed By: #### C BC #### [facility] [address] [place] [address] Dr. Alejandra Crystal IG # 0.02 10e3/ul Normal 0.00-0.03 [facility] Comment on above: Performed By: #### C BC #### [facility] [address] [place] [address] Dr. Alejandra Crystal IG % 0.3 % Normal 0.0-0.5 [facility] Comment on above: Performed By: #### C BC #### [facility] [address] [place] [address] Dr. Alejandra Crystal LYMPH # 2.1 103/ul Normal 1.2-3.8 [facility] Comment on above: Performed By: #### C BC #### [facility] [address] [place] [address] Dr. Alejandra Crystal Lymphocytes/100 WBC (Bld) 32.5 % Normal 20.5-60.0 [facility] Comment on above: Performed By: #### C BC #### [facility] [address] [place] [address] Dr. Alejandra Crystal MANUAL DIFF REQ NO Normal [facility] Comment on above: Performed By: #### C BC #### [facility] [address] [place] [address] Dr. Alejandra Crystal MCH (RBC) [Entitic mass] 32.1 pg Normal 26.7-34.0 [facility] Comment on above: Performed By: #### C BC #### [facility] [address] [place] [address] Dr. Alejandra Crystal MCHC (RBC) [Mass/Vol] 35.0 g/dL Normal 29.9-35.2 [facility] Comment on above: Performed By: #### C BC #### [facility] [address] [place] [address] Dr. Alejandra Crystal MCV (RBC) [Entitic vol] 91.8 fL Normal 81.0-99.0 [facility] Comment on above: Performed By: #### C BC #### [facility] [address] [place] [address] Dr. Alejandra Crystal MONO # 0.6 103/ul Normal 0.3-0.8 [facility] Comment on above: Performed By: #### C BC #### [facility] [address] [place] [address] [address] Alejandra Crystal Monocytes/100 WBC (Bld) 8.6 % Normal 1.7-12.0 [facility] Comment on above: Performed By: #### C BC #### [facility] [facility] [address] [place] [address] Dr. Alejandra Crystal NEUT # 3.6 103/ul Normal 1.4-6.5 [facility] Comment on above: Performed By: #### C BC #### [facility] [address] [place] [address] Dr. Alejandra Crystal Neutrophils/100 WBC (Bld) 56.7 % Normal 43.0-75.0 [facility] Comment on above: Performed By: #### C BC #### [facility] [address] [place] [address] Dr. Alejandra Crystal Platelet mean volume (Bld) [Entitic vol] 9.4 fL Critically low 9.5-13.5 [facility] Comment on above: Performed By: #### C BC #### [facility] [address] [place] [address] Dr. Alejandra Crystal PLT 294 103/ul Normal 150-450 [facility] Comment on above: Performed By: #### C BC #### [facility] [address] [place] [address] Dr. Alejandra Crystal RBC 4.49 106/ul Normal 4.20-5.40 [facility] Comment on above: Performed By: #### C BC #### [facility] [address] [place] [address] Dr. Alejandra Crystal WBC 6.4 103/ul Normal 4.0-11.0 [facility] Comment on above: Performed By: #### C BC #### [facility] [address] [place] [address] Dr. Alejandra Crystal FREE THYROXINE INDEX T7on FTI 1.78 Normal 1.30-4.50 [facility] Comment on above: Performed By: #### L IPID, URIC, CMP, T7, TSH #### [facility] [address] [place] [address] Dr. Alejandra Crystal T3U 33.0 % Normal 30.0-39.0 [facility] Comment on above: Performed By: #### L IPID, URIC, CMP, T7, TSH #### [facility] [address] [place] [address] Dr. Alejandra Crystal T4 [Mass/Vol] 5.40 ug/dL Normal 4.80-13.90 [facility] Comment on above: Performed By: #### L IPID, URIC, CMP, T7, TSH #### [facility] [address] [place] [address] Dr. Alejandra Crystal GLYCOHEMOGLOBIN A1Con 2021 ADA RECOMMENDATION SEE BELOW Normal [facility] Comment on above: Result Comment: ADA RECOMMENDED LIMIT 4.0 - 6.0 ADA THERAPEUTIC TARGET < 7.0 ACTION SUGGESTED > 7.0 Performed By: #### O BSCRN #### [facility] [address] [place] [address] Dr. Alejandra Crystal Glucose [Mass/Vol] 94 mg/dL Normal [facility] Comment on above: Performed By: #### O BSCRN #### [facility] [address] [place] [address] Dr. Alejandra Crystal HbA1c (Bld) [Mass fraction] 4.9 % Normal 4.5-6.2 [facility] Comment on above: Performed By: #### O BSCRN #### [facility] [address] [place] [address] Dr. Alejandra Crystal IRONon 05-29-2022 Iron [Mass/Vol] 74.0 ug/dL Normal 50.0-170.0 [facility] Comment on above: Performed By: #### I NFLUAB #### [facility] [address] [address] [address] Alejandra Crystal LIPID PROFILEon 05-29-2022 CHOL-HDL RATIO NORM SEE BELOW Normal [facility] Comment on above: Result Comment: 3.3 - 4.4 LOW RISK 4.4 - 7.1 AVERAGE RISK 7.1 - 11.0 MODERATE RISK >11.0 HIGH RISK Performed By: #### L IPID, URIC, CMP, T7, TSH #### [facility] [address] [address] [address] Alejandra Crystal Cholesterol [Mass/Vol] 127 mg/dL Normal <=200 [facility] Comment on above: Performed By: #### L IPID, URIC, CMP, T7, TSH #### [facility] [address] [place] [address] Dr. Alejandra Crystal Cholesterol in HDL [Mass/Vol] 33 mg/dL Critically low 40-60 [facility] Comment on above: Performed By: #### L IPID, URIC, CMP, T7, TSH #### [facility] [address] [address] [address] Alejandra Crystal Cholesterol in LDL [Mass/Vol] 60.4 mg/dL Normal [facility] Comment on above: Performed By: #### L IPID, URIC, CMP, T7, TSH #### [facility] [address] [address] [address] Alejandra Crystal Cholesterol.total/Cho lesterol in HDL [Mass ratio] 3.8 {ratio} Normal [facility] Comment on above: Performed By: #### L IPID, URIC, CMP, T7, TSH #### [facility] [address] [place] [address] Dr. Alejandra Crystal HDL NORMAL > or = 60 mg/dl - LO W CARDIOVASCULAR RISK <40 mg/dl - HIGH CARDIOVASCULAR RISK Normal [facility] Comment on above: Performed By: #### L IPID, URIC, CMP, T7, TSH #### [facility] [address] [place], [place] [id number] Dr. Alejandra Crystal LDL CALC NORMAL SEE BELOW Normal [facility] Comment on above: Result Comment: <100 mg/dl OPTIMAL 100 - 129 mg/dl NEAR OR ABOVE OPTIMAL 130 - 159 mg/dl BORDERLINE HIGH 160 - 189 mg/dl HIGH >190 mg/dl VERY HIGH Performed By: #### L IPID, URIC, CMP, T7, TSH #### [facility] [address] [address] [address] Alejandra Crystal Triglyceride [Mass/Vol] 168 mg/dL Critically high <=150 [facility] Comment on above: Performed By: #### L IPID, URIC, CMP, T7, TSH #### [facility] [address] [place] [address] Dr. Alejandra Crystal VLDL CALC 33.6 mg/dL Normal [facility] Comment on above: Performed By: #### L IPID, URIC, CMP, T7, TSH #### [facility] [address] [place] [address] Dr. Alejandra Crystal PROF 14(COMP METB)on 022 Albumin [Mass/Vol] 3.8 g/dL Normal 3.4-5.0 [facility] Comment on above: Performed By: #### L IPID, URIC, CMP, T7, TSH #### [facility] [address] [place] [address] Dr. Alejandra Crystal Albumin/Globulin [Mass ratio] 1.2 {ratio} Normal [facility] Comment on above: Performed By: #### L IPID, URIC, CMP, T7, TSH #### [facility] [address] [place] [address] Dr. Alejandra Crystal ALP [Catalytic activity/Vol] 111 U/L Normal 46-116 [facility] Comment on above: Performed By: #### L IPID, URIC, CMP, T7, TSH #### [facility] [address] [place] [address] Dr. Alejandra Crystal ALT [Catalytic activity/Vol] 18 U/L Normal 14-59 [facility] Comment on above: Performed By: #### L IPID, URIC, CMP, T7, TSH #### [facility] [address] [place] [address] Dr. Alejandra Crystal Anion gap [Moles/Vol] 14.9 mmol/L Normal [facility] Comment on above: Performed By: #### L IPID, URIC, CMP, T7, TSH #### [facility] [address] [place] [address] Dr. Alejandra Crystal AST [Catalytic activity/Vol] 11 U/L Critically low 15-37 [facility] Comment on above: Performed By: #### L IPID, URIC, CMP, T7, TSH #### [facility] [address] [place] [address] Dr. Alejandra Crystal Bilirubin [Mass/Vol] 0.3 mg/dL Normal 0.2-1.0 [facility] Comment on above: Performed By: #### L IPID, URIC, CMP, T7, TSH #### [facility] [address] [place] [address] Dr. Alejandra Crystal Calcium [Mass/Vol] 8.9 mg/dL Normal 8.5-10.1 [facility] Comment on above: Performed By: #### L IPID, URIC, CMP, T7, TSH #### [facility] [address] [place] [address] Dr. Alejandra Crystal Chloride [Moles/Vol] 107 mmol/L Normal 98-107 [facility] Comment on above: Performed By: #### L IPID, URIC, CMP, T7, TSH #### [facility] [address] [place] [address] Dr. Alejandra Crystal CO2 [Moles/Vol] 22.3 mmol/L Normal 21.0-32.0 [facility] Comment on above: Performed By: #### L IPID, URIC, CMP, T7, TSH #### [facility] [address] [place] [address] Dr. Alejandra Crystal Creatinine [Mass/Vol] 0.82 mg/dL Normal 0.55-1.02 [facility] Comment on above: Performed By: #### L IPID, URIC, CMP, T7, TSH #### [facility] [address] [address] [address] Alejandra Crystal EGFR-AF BARBADIAN >60 Normal >=60 [facility] Comment on above: Performed By: #### L IPID, URIC, CMP, T7, TSH #### [facility] [address] [address] [address] Alejandra Crystal EGFR-NON AF BAR[place]IAN >60 Normal >=60 [facility] Comment on above: Performed By: #### L IPID, URIC, CMP, T7, TSH #### [facility] [address] [address] [address] Alejandra Crystal Globulin (S) [Mass/Vol] 3.3 g/dL Normal [facility] Comment on above: Performed By: #### L IPID, URIC, CMP, T7, TSH #### [facility] [address] [address] [address] Alejandra Crystal Glucose [Mass/Vol] 91 mg/dL Normal 74-106 [facility] Comment on above: Performed By: #### L IPID, URIC, CMP, T7, TSH #### [facility] [address] [address] [address] Alejandra Crystal Potassium [Moles/Vol] 4.2 mmol/L Normal 3.5-5.1 [facility] Comment on above: Performed By: #### L IPID, URIC, CMP, T7, TSH #### [facility] [address] [address] [address] Alejandra Crystal Protein [Mass/Vol] 7.1 g/dL Normal 6.4-8.2 [facility] Comment on above: Performed By: #### L IPID, URIC, CMP, T7, TSH #### [facility] [address] [address] [address] Alejandra Crystal Sodium [Moles/Vol] 140 mmol/L Normal 136-145 [facility] Comment on above: Performed By: #### L IPID, URIC, CMP, T7, TSH #### [facility] [address] [address] [address] Alejandra Crystal Urea nitrogen [Mass/Vol] 14.0 mg/dL Normal 7.0-18.0 [facility] Comment on above: Performed By: #### L IPID, URIC, CMP, T7, TSH #### [facility] [address] [address] [address] Alejandra Crystal Urea nitrogen/Creatinine [Mass ratio] 17.1 mg/mg Normal [facility] Comment on above: Performed By: #### L IPID, URIC, CMP, T7, TSH #### [facility] [address] [address] [address] Alejandra Crystal TSHon 05-29-2022 TSH 0.767 uIU/mL Normal 0.358-3.740 [facility] Comment on above: Performed By: #### L IPID, URIC, CMP, T7, TSH #### [facility] [address] [place] [address] Dr. Alejandra Crystal URIC ACID SERUMon 05-29-2022 Urate [Mass/Vol] 3.4 mg/dL Normal 2.6-6.0 [facility] Comment on above: Performed By: #### L IPID, URIC, CMP, T7, TSH #### [facility] [address] [place] [address] Dr. Alejandra Crystal VITAMIN D 25 OHon 05-29-2022 VIT D 25-OH 16.2 ng/mL Normal [facility] Comment on above: Performed By: #### I NFLUAB #### [facility] [address] [place] [address] Dr. Alejandra Crystal VIT D RANGES SEE BELOW Normal [facility] Comment on above: Result Comment: <20 ng/mL Vit D deficient 20 - <30 ng/mL Vit D insufficient 30 - 100 ng/mL Vit D sufficient >100 ng/mL Potential Toxicity Performed By: #### I NFLUAB #### [facility] [address] [place] [address] Dr. Alejandra Crystal MRI BRAIN WO W [...] are clear. The flow voids of the [place] of [place] are visualized, implying that the [...] by: TEZ CUBA Date: 2022-05-17 23:20 Normal [facility] US SINGLE QUAD RT UPPERon US [...] LETY TAN Date: 2022-05-15 14:53 Normal [facility] COAGULATIONOrdered By: Nacho Mcguire on 04-23-2022 aPTT [...] rate/Area] mL/min/1.73 m2 Normal >=59mL/min/ 1.73 m2 [facility] Chem S GFR/1.73 sq M.predicted among non-blacks MDRD (S/P/Bld) [Vol rate/Area] mL/min/1.73 m2 Normal >=59mL/min/ 1.73 m2 [facility] Chem S Glucose [Mass/Vol] 102 mg/dL Normal 55 - 199 mg/dL [facility] Remisol Potassium [Moles/Vol] 3.6 mmol/L Normal 3.5 - 5.3 mmol/L [facility] Remisol Sodium [Moles/Vol] 135 mmol/L Normal 135 - 145 mmol/L [facility] Remisol Urea nitrogen [Mass/Vol] 12 mg/dL Normal 5 - 21 mg/dL [facility] Remisol Urea nitrogen/Creatinine [Mass ratio] 13 mg/mg Normal 10 - 20 [facility] Remisol CHEMISTRYOrdered By: Lab ROP User on 04-11-2022 Glucose [Mass/Vol] 123 mg/dL High 55 - 99 mg/dL [facility] POC Subsection Comment on above: Result Comment: Madelaine toro RN/ POC Device SN [id number] Invalid Interpretation Code [facility] POC Subsection POC User ID [id number] Invalid Interpretation Code [facility] POC Subsection POC Username CHELE MENDOZA Invalid Interpretation Code [facility] POC Subsection HEMATOLOGYOrdered By: SYSTEM SYSTEM on [...] determined as this extends off the image [id number]. IMPRESSION: Low lying left cerebellar tonsil Original [...] abnormal postcontrast enhancement Limited exam with poor [id number] ratio, this is particularly on the postcontrast images IMPRESSION: Limited exam, no acute abnormality observed Normal [facility] CBC AUTO DIFFon 03-29-2022 BASO # 0.0 103/ul Normal 0.0-0.1 [facility] Comment on above: Performed By: #### C BC #### [facility] [address] [place] [address] Dr. Alejandra Crystal Basophils/100 WBC (Bld) 0.4 % Normal 0.2-2.0 [facility] Comment on above: Performed By: #### C BC #### [facility] [address] [place] [address] Dr. Alejandra Crystal EO # 0.0 103/ul Normal 0.0-0.7 [facility] Comment on above: Performed By: #### C BC #### [facility] [address] [address] [address] Alejandra Crystal Eosinophils/100 WBC (Bld) 0.6 % Critically low 0.9-7.0 [facility] Comment on above: Performed By: #### C BC #### [facility] [address] [place] [address] Dr. Alejandra Crystal Erythrocyte distribution width (RBC) [Ratio] 13.0 % Normal 11.0-15.0 [facility] Comment on above: Performed By: #### C BC #### [facility] [address] [place] [address] Dr. Alejandra Crystal Hematocrit (Bld) [Volume fraction] 42.0 % Normal 36.0-48.0 [facility] Comment on above: Performed By: #### C BC #### [facility] [address] [place] [address] Dr. Alejandra Crystal Hemoglobin (Bld) [Mass/Vol] 14.3 g/dL Normal 12.0-16.0 [facility] Comment on above: Performed By: #### C BC #### [facility] [address] [place] [address] Dr. Alejandra Crystal IG # 0.04 10e3/ul Critically high 0.00-0.03 [facility] Comment on above: Performed By: #### C BC #### [facility] [address] [place] [address] Dr. Alejandra Crystal IG % 0.6 % Critically high 0.0-0.5 [facility] Comment on above: Performed By: #### C BC #### [facility] [address] [place] [address] Dr. Alejandra Crystal LYMPH # 2.5 103/ul Normal 1.2-3.8 [facility] Comment on above: Performed By: #### C BC #### [facility] [address] [place] [address] Dr. Alejandra Crystal Lymphocytes/100 WBC (Bld) 34.9 % Normal 20.5-60.0 [facility] Comment on above: Performed By: #### C BC #### [facility] [address] [place] [address] Dr. Alejandra Crystal MANUAL DIFF REQ NO Normal [facility] Comment on above: Performed By: #### C BC #### [facility] [address] [place] [address] Dr. Alejandra Crystal MCH (RBC) [Entitic mass] 31.4 pg Normal 26.7-34.0 [facility] Comment on above: Performed By: #### C BC #### [facility] [address] [id number] [address] Alejandra Crystal MCHC (RBC) [Mass/Vol] 34.0 g/dL Normal 29.9-35.2 [facility] Comment on above: Performed By: #### C BC #### [facility] [address] [address] [address] Alejandra Crystal MCV (RBC) [Entitic vol] 92.1 fL Normal 81.0-99.0 [facility] Comment on above: Performed By: #### C BC #### [facility] [address] [place] [address] Dr. Alejandra Crystal MONO # 0.6 103/ul Normal 0.3-0.8 [facility] Comment on above: Performed By: #### C BC #### [facility] [address] [place] [address] Dr. Alejandra Crystal Monocytes/100 WBC (Bld) 8.7 % Normal 1.7-12.0 [facility] Comment on above: Performed By: #### C BC #### [facility] [address] [place] [address] Dr. Alejandra Crystal NEUT # 4.0 103/ul Normal 1.4-6.5 [facility] Comment on above: Performed By: #### C BC #### [facility] [address] [place] [address] Dr. Alejandra Crystal Neutrophils/100 WBC (Bld) 54.8 % Normal 43.0-75.0 [facility] Comment on above: Performed By: #### C BC #### [facility] [address] [place] [address] Dr. Alejandra Crystal Platelet mean volume (Bld) [Entitic vol] 9.8 fL Normal 9.5-13.5 [facility] Comment on above: Performed By: #### C BC #### [facility] [address] [place] [address] Dr. Alejandra Crystal PLT 274 103/ul Normal 150-450 [facility] Comment on above: Performed By: #### C BC #### [facility] [address] [address] [address] Alejandra Crystal RBC 4.56 106/ul Normal 4.20-5.40 [facility] Comment on above: Performed By: #### C BC #### [facility] [address] [place] [address] Dr. Alejandra Crystal WBC 7.2 103/ul Normal 4.0-11.0 [facility] Comment on above: Performed By: #### C BC #### [facility] [address] [place] [address] Dr. Alejandra Crystal ER URINE PROFILEon 2 Bilirubin Ql (U) Negative Normal NEGATIVE [facility] Comment on above: Performed By: #### O BSCRN #### [facility] [address] [place] [address] Dr. Alejandra Crystal Clarity (U) CLEAR Normal CLEAR [facility] Comment on above: Performed By: #### O BSCRN #### [facility] [address] [place] [address] Dr. Alejandra Crystal Color (U) YELLOW Normal YELLOW [facility] Comment on above: Performed By: #### O BSCRN #### [facility] [address] [place] [address] Dr. Alejandra LEONARD A micrscopic examina tion will be performed if indicated. Normal [facility] Comment on above: Performed By: #### O BSCRN #### [facility] [address] [place] [address] Dr. Alejandra Crystal Glucose Ql (U) Negative Normal NEGATIVE The [facility] Comment on above: Performed By: #### O BSCRN #### [facility] [address] [place] [address] Dr. Alejandra Crystal Hemoglobin Ql (U) Negative Normal NEGATIVE [facility] Comment on above: Performed By: #### O BSCRN #### [facility] [address] [place] [address] Dr. Alejandra Crystal Ketones Ql (U) Negative Normal NEGATIVE The [facility] Comment on above: Performed By: #### O BSCRN #### [facility] [address] [place] [address] Dr. Alejandra Crystal LEUKOCYTES Negative Normal NEGATIVE [facility] Comment on above: Performed By: #### O BSCRN #### [facility] [address] [place] [address] Dr. Alejandra Crystal Nitrite Ql (U) Negative Normal NEGATIVE [facility] Comment on above: Performed By: #### O BSCRN #### [facility] [address] [place] [address] Dr. Alejandra Crystal pH (U) 6.0 [pH] Normal 5-9 [facility] Comment on above: Performed By: #### O BSCRN #### [facility] [address] [place] [address] Dr. Alejandra Crystal SPEC GRAVITY >=1.030 Abnormal 1.005-<=1.0 25 [facility] Comment on above: Performed By: #### O BSCRN #### [facility] [address] [place] [address] Dr. Alejandra Crystal UA PROTEIN Negative Normal NEGATIVE/ TRACE [facility] Comment on above: Performed By: #### O BSCRN #### [facility] [address] [place] [address] Dr. Alejandra Crystal UR MICRO IND NOT INDICATED Normal [facility] Comment on above: Performed By: #### O BSCRN #### [facility] [address] [place] [address] Dr. Alejandra Crystal Urobilinogen Qn (U) 0.2 {Ernst'U}/dL Normal 0.2 - 1. 0 [facility] Comment on above: Performed By: #### O BSCRN #### [facility] [address] [place] [address] Dr. Alejandra Crystal MAGNESIUMon 03-29-2022 Magnesium [Mass/Vol] 2.1 mg/dL Normal 1.8-2.4 [facility] Comment on above: Performed By: #### I NFLUAB #### [facility] [address] [place] [address] Dr. Alejandra Crystal PREG HCG QUALon 03-29-2022 , QUAL Negative Normal NEGATIVE [facility] Comment on above: Performed By: #### I NSULIN #### [facility] [address] [place] [address] Dr. Alejandra Crystal PROF 14(COMP METB)on 022 Albumin [Mass/Vol] 3.7 g/dL Normal 3.4-5.0 [facility] Comment on above: Performed By: #### I NFLUAB #### [facility] [address] [place] [address] Dr. Alejandra Crystal Albumin/Globulin [Mass ratio] 1.2 {ratio} Normal [facility] Comment on above: Performed By: #### I NFLUAB #### [facility] [address] [place] [address] Dr. Alejandra Crystal ALP [Catalytic activity/Vol] 120 U/L Critically high 46-116 [facility] Comment on above: Performed By: #### I NFLUAB #### [facility] [address] [place] [address] Dr. Alejandra Crystal ALT [Catalytic activity/Vol] 23 U/L Normal 14-59 [facility] Comment on above: Performed By: #### I NFLUAB #### [facility] [address] [place] [address] Dr. Alejandra Crystal Anion gap [Moles/Vol] 12.6 mmol/L Normal [facility] Comment on above: Performed By: #### I NFLUAB #### [facility] [address] [place] [address] Dr. Alejandra Crystal AST [Catalytic activity/Vol] 14 U/L Critically low 15-37 [facility] Comment on above: Performed By: #### I NFLUAB #### [facility] [address] [place] [address] Dr. Alejandra Crystal Bilirubin [Mass/Vol] 0.4 mg/dL Normal 0.2-1.0 [facility] Comment on above: Performed By: #### I NFLUAB #### [facility] [address] [place] [address] Dr. Alejandra Crystal Calcium [Mass/Vol] 9.0 mg/dL Normal 8.5-10.1 [facility] Comment on above: Performed By: #### I NFLUAB #### [facility] [address] [address] [address] Alejandra Crystal Chloride [Moles/Vol] 109 mmol/L Critically high 98-107 [facility] Comment on above: Performed By: #### I NFLUAB #### [facility] [address] [address] [address] Alejandra Crystal CO2 [Moles/Vol] 21.2 mmol/L Normal 21.0-32.0 [facility] Comment on above: Performed By: #### I NFLUAB #### [facility] [address] [place] [address] Dr. Alejandra Crystal Creatinine [Mass/Vol] 0.93 mg/dL Normal 0.55-1.02 [facility] Comment on above: Performed By: #### I NFLUAB #### [facility] [address] [place] [address] Dr. Alejandra Crystal EGFR-AF BARBADIAN Normal >=60 [facility] Comment on above: Performed By: #### I NFLUAB #### [facility] [address] [place] [address] Dr. Alejandra Crystal EGFR-NON AF BARBADIAN Normal >=60 [facility] Comment on above: Performed By: #### I NFLUAB #### [facility] [address] [place] [address] Dr. Alejandra Crystal Globulin (S) [Mass/Vol] 3.2 g/dL Normal [facility] Comment on above: Performed By: #### I NFLUAB #### [facility] [address] [place] [address] Dr. Alejnadra Crystal Glucose [Mass/Vol] 100 mg/dL Normal 74-106 [facility] Comment on above: Performed By: #### I NFLUAB #### [facility] [address] [place] [address] Dr. Alejandra Crystal Potassium [Moles/Vol] 2.8 mmol/L Critically low 3.5-5.1 [facility] Comment on above: Performed By: #### I NFLUAB #### [facility] [address] [address] [address] Alejandra Crystal Protein [Mass/Vol] 6.9 g/dL Normal 6.4-8.2 [facility] Comment on above: Performed By: #### I NFLUAB #### [facility] [address] [place] [address] Dr. Alejandra Crystal Sodium [Moles/Vol] 140 mmol/L Normal 136-145 [facility] Comment on above: Performed By: #### I NFLUAB #### [facility] [address] [place] [address] Dr. Alejandra Crystal Urea nitrogen [Mass/Vol] 16.0 mg/dL Normal 7.0-18.0 [facility] Comment on above: Performed By: #### I NFLUAB #### [facility] [address] [place] [address] Dr. Alejandra Crystal Urea nitrogen/Creatinine [Mass ratio] 17.2 mg/mg Normal [facility] Comment on above: Performed By: #### I NFLUAB #### [facility] [address] [place] [address] Dr. Alejandra Crystal TROPONIN, HIGH SENSITIVITYon 03-29-2022 HSTROP 5.2 pg/mL Normal 4.0-51.3 [facility] Comment on above: Result Comment: CUT- OFF POINTS HAVE BEEN ESTABLISHED BASED ON THE FOURTH UNIVERSAL DEFINITIONS OF MYOCARDIAL INFARCTION. THE UPPER REFERENCE LIMIT (URL) OF TROPONIN, DEFINED THE 99TH PERCENTILE OF cTnI DISTRIBUTION IN A REFERENCE POPULATION, HAS BEEN CONFIRMED THE DECISION THRESHOLD FOR [place] DIAGNOSIS. Performed By: #### I NFLUAB #### [facility] [address] [place] [address] Dr. Alejandra Crystal [facility]08 SARS-CoV-2 (COVID-19) RNA JAYNE+probe Ql (Unsp spec) Not detected Normal NOT DETECTED [facility] Comment on above: Result Comment: This test is not yet approved or cleared by the [place] FDA. When there are no FDA-approved or cleared tests available, and other criteria are met, FDA can make tests available under an emergency access mechanism called an Emergency Use Authorization (EUA). The EUA for this test is supported by the [place] of Health and Human Service's (HHS's) declaration [...] L IPID, URIC, CMP, T7, TSH #### [facility] [address] [place] [address] Dr. Alejandra Crystal MRI BRAIN WO W CONon 03-06- 022 MRI BRAIN WO W CON EXAMINATION: [...] CHAY MENDOZA Date: 2022-03-06 07:26 Normal [facility] CHEMISTRYOrdered By: SYSTEM SYSTEM on 02-21-2022 T4 [Mass/Vol] 5.1 ug/dL Normal 4.6 - 9.1 mcg/dL [facility] Remisol TSH Qn 0.20 m[IU]/L Low 0.34 - 5.60 mcIU/mL [facility] Remisol Covid-19 PCR ([facility])on 01-06 SARS-CoV-2 (COVID-19) RNA JAYNE+probe Ql (Unsp spec) Not detected Normal NOT DETECTED [facility] Comment on above: Result [...] for this test is supported by the [place] of Health and Human Service's declaration that [...] used). Performed By: #### I NFLUAB #### [facility] [address] [place] [address] Dr. Alejandra Crystal CBC AUTO DIFFon 01-01-2022 BASO # 0.0 103/ul Normal 0.0-0.1 [facility] Comment on above: Performed By: #### O BSCRN #### [facility] [address] [place] [address] Dr. Alejandra Crystal Basophils/100 WBC (Bld) 0.7 % Normal 0.2-2.0 [facility] Comment on above: Performed By: #### O BSCRN #### [facility] [address] [place] [address] Dr. Alejandra Crystal EO # 0.1 103/ul Normal 0.0-0.7 [facility] Comment on above: Performed By: #### O BSCRN #### [facility] [address] [place] [address] Dr. Alejandra Crystal Eosinophils/100 WBC (Bld) 1.1 % Normal 0.9-7.0 [facility] Comment on above: Performed By: #### O BSCRN #### [facility] [address] [place] [address] Dr. Alejandra Crystal Erythrocyte distribution width (RBC) [Ratio] 13.1 % Normal 11.0-15.0 [facility] Comment on above: Performed By: #### O BSCRN #### [facility] [address] [place] [address] Dr. Alejandra Crystal Hematocrit (Bld) [Volume fraction] 43.4 % Normal 36.0-48.0 [facility] Comment on above: Performed By: #### O BSCRN #### [facility] [address] [place] [address] Dr. Alejandra Crystal Hemoglobin (Bld) [Mass/Vol] 14.5 g/dL Normal 12.0-16.0 [facility] Comment on above: Performed By: #### O BSCRN #### [facility] [address] [place] [address] Dr. Alejandra Crystal IG # 0.02 10e3/ul Normal 0.00-0.03 [facility] Comment on above: Performed By: #### O BSCRN #### [facility] [address] [place] [address] Dr. Alejandra Crystal IG % 0.4 % Normal 0.0-0.5 [facility] Comment on above: Performed By: #### O BSCRN #### [facility] [address] [place] [address] Dr. Alejandra Crystal LYMPH # 1.9 103/ul Normal 1.2-3.8 [facility] Comment on above: Performed By: #### O BSCRN #### [facility] [address] [place] [address] Dr. Alejandra Crystal Lymphocytes/100 WBC (Bld) 34.1 % Normal 20.5-60.0 [facility] Comment on above: Performed By: #### O BSCRN #### [facility] [address] [place] [address] Dr. Alejandra Crystal MANUAL DIFF REQ NO Normal [facility] Comment on above: Performed By: #### O BSCRN #### [facility] [address] [place] [address] Dr. Alejandra Crystal MCH (RBC) [Entitic mass] 30.9 pg Normal 26.7-34.0 [facility] Comment on above: Performed By: #### O BSCRN #### [facility] [address] [place] [address] Dr. Alejandra Crystal MCHC (RBC) [Mass/Vol] 33.4 g/dL Normal 29.9-35.2 [facility] Comment on above: Performed By: #### O BSCRN #### [facility] [address] [place] [address] Dr. Alejandra Crystal MCV (RBC) [Entitic vol] 92.5 fL Normal 81.0-99.0 [facility] Comment on above: Performed By: #### O BSCRN #### [facility] [address] [place] [address] Dr. Alejandra Crystal MONO # 0.4 103/ul Normal 0.3-0.8 [facility] Comment on above: Performed By: #### O BSCRN #### [facility] [address] [place] [address] Dr. Alejandra Crystal Monocytes/100 WBC (Bld) 7.7 % Normal 1.7-12.0 [facility] Comment on above: Performed By: #### O BSCRN #### [facility] [address] [address] [address] Alejandra Crystal NEUT # 3.0 103/ul Normal 1.4-6.5 [facility] Comment on above: Performed By: #### O BSCRN #### [facility] [address] [address] [address] Alejandra Crystal Neutrophils/100 WBC (Bld) 56.0 % Normal 43.0-75.0 [facility] Comment on above: Performed By: #### O BSCRN #### [facility] [address] [address] [address] Alejandra Crystal Platelet mean volume (Bld) [Entitic vol] 9.4 fL Critically low 9.5-13.5 [facility] Comment on above: Performed By: #### O BSCRN #### [facility] [address] [place] [address] Dr. Alejandra Crystal PLT 313 103/ul Normal 150-450 [facility] Comment on above: Performed By: #### O BSCRN #### [facility] [address] [place] [address] Dr. Alejandra Crystal RBC 4.69 106/ul Normal 4.20-5.40 [facility] Comment on above: Performed By: #### O BSCRN #### [facility] [address] [address] [address] Alejandra Crystal WBC 5.4 103/ul Normal 4.0-11.0 [facility] Comment on above: Performed By: #### O BSCRN #### [facility] [address] [address] [address] Alejandra Crystal FREE T3on 01-01-2022 FREE T3 4.72 pg/mlL Critically high 2.18-3.98 [facility] Comment on above: Performed By: #### L IPID, URIC, CMP, T7, TSH #### [facility] [address] [address] [address] Alejandra Crystal FREE THYROXINE INDEX T7on FTI 1.25 Critically low 1.30-4.50 [facility] Comment on above: Performed By: #### L IPID, URIC, CMP, T7, TSH #### [facility] [address] [address] [address] Alejandra Crystal T3U 32.0 % Normal 30.0-39.0 [facility] Comment on above: Performed By: #### L IPID, URIC, CMP, T7, TSH #### [facility] [address] [address] [address] Alejandra Crytsal T4 [Mass/Vol] 3.90 ug/dL Critically low 4.80-13.90 [facility] Comment on above: Performed By: #### L IPID, URIC, CMP, T7, TSH #### [facility] [address] [place] [address] Dr. Alejandra Crystal PROF 14(COMP METB)on 022 Albumin [Mass/Vol] 3.8 g/dL Normal 3.4-5.0 [facility] Comment on above: Performed By: #### L IPID, URIC, CMP, T7, TSH #### [facility] [address] [place] [address] Dr. Alejandra Crystal Albumin/Globulin [Mass ratio] 11.4 {ratio} Normal [facility] Comment on above: Performed By: #### L IPID, URIC, CMP, T7, TSH #### [facility] [address] [place] [address] Dr. Alejandra Crystal ALP [Catalytic activity/Vol] 123 U/L Critically high 46-116 [facility] Comment on above: Performed By: #### L IPID, URIC, CMP, T7, TSH #### [facility] [address] [address] [address] Alejandra Crystal ALT [Catalytic activity/Vol] 27 U/L Normal 14-59 [facility] Comment on above: Performed By: #### L IPID, URIC, CMP, T7, TSH #### [facility] [address] [address] [address] Alejandra rCystal Anion gap [Moles/Vol] 11.5 mmol/L Normal [facility] Comment on above: Performed By: #### L IPID, URIC, CMP, T7, TSH #### [facility] [address] [address] [address] Alejandra Crystal AST [Catalytic activity/Vol] 16 U/L Normal 15-37 [facility] Comment on above: Performed By: #### L IPID, URIC, CMP, T7, TSH #### [facility] [address] [address] [address] Alejandra Crystal Bilirubin [Mass/Vol] 0.6 mg/dL Normal 0.2-1.0 [facility] Comment on above: Performed By: #### L IPID, URIC, CMP, T7, TSH #### [facility] [address] [place] [address] Dr. Alejandra Crystal Calcium [Mass/Vol] 8.8 mg/dL Normal 8.5-10.1 [facility] Comment on above: Performed By: #### L IPID, URIC, CMP, T7, TSH #### [facility] [address] [address] [address] Alejandra Crystal Chloride [Moles/Vol] 110 mmol/L Critically high 98-107 [facility] Comment on above: Performed By: #### L IPID, URIC, CMP, T7, TSH #### [facility] [address] [address] [address] Alejandra Crystal CO2 [Moles/Vol] 23.9 mmol/L Normal 21.0-32.0 [facility] Comment on above: Performed By: #### L IPID, URIC, CMP, T7, TSH #### [facility] [address] [place] [address] Dr. Alejandra Crystal Creatinine [Mass/Vol] 0.90 mg/dL Normal 0.55-1.02 [facility] Comment on above: Performed By: #### L IPID, URIC, CMP, T7, TSH #### [facility] [address] [place] [address] Dr. Alejandra Crystal EGFR-AF BAR[place]IAN >=60 Normal >=60 [facility] Comment on above: Performed By: #### L IPID, URIC, CMP, T7, TSH #### [facility] [address] [address] [address] Alejandra Crystal EGFR-NON AF [place]IAN >=60 Normal >=60 [facility] Comment on above: Performed By: #### L IPID, URIC, CMP, T7, TSH #### [facility] [address] [address] [address] Alejandra Crystal Globulin (S) [Mass/Vol] 3.5 g/dL Normal [facility] Comment on above: Performed By: #### L IPID, URIC, CMP, T7, TSH #### [facility] [address] [place] [address] Dr. Alejandra Crystal Glucose [Mass/Vol] 107 mg/dL Critically high 74-106 [facility] Comment on above: Performed By: #### L IPID, URIC, CMP, T7, TSH #### [facility] [address] [place] [address] Dr. Alejandra Crystal Potassium [Moles/Vol] 3.3 mmol/L Critically low 3.5-5.1 [facility] Comment on above: Performed By: #### L IPID, URIC, CMP, T7, TSH #### [facility] [address] [place] [address] Dr. Alejandra Crystal Protein [Mass/Vol] 7.3 g/dL Normal 6.4-8.2 [facility] Comment on above: Performed By: #### L IPID, URIC, CMP, T7, TSH #### [facility] [address] [address] [address] Alejandra Crystal Sodium [Moles/Vol] 142 mmol/L Normal 136-145 [facility] Comment on above: Performed By: #### L IPID, URIC, CMP, T7, TSH #### [facility] [address] [place] [address] Dr. Alejandra Crystal Urea nitrogen [Mass/Vol] 13.0 mg/dL Normal 7.0-18.0 [facility] Comment on above: Performed By: #### L IPID, URIC, CMP, T7, TSH #### [facility] [address] [place] [address] Dr. Alejandra Crystal Urea nitrogen/Creatinine [Mass ratio] 14.4 mg/mg Normal [facility] Comment on above: Performed By: #### L IPID, URIC, CMP, T7, TSH #### [facility] [address] [place] [address] Dr. Alejandra Crystal TSHon 01-01-2022 TSH 0.177 uIU/mL Critically low 0.358-3.740 [facility] Comment on above: Performed By: #### L IPID, URIC, CMP, T7, TSH #### [facility] [address] [place] [address] Dr. Alejandra Crystal T4 LABCORPon 12-02-2021 T4 [Mass/Vol] 4.8 ug/dL Normal 4.5-12.0 [facility] Comment on above: Performed By: #### I NFLUAB #### [facility] [address] [place] [address] Dr. Alejandra Crystal OCC BLD IMMUNO SCREENon 11-06 OCCULT BLOOD Negative Normal NEGATIVE [facility] Comment on above: Performed By: #### O BSCRN #### [facility] [address] [place] [address] Dr. Alejandra Crystal CBC AUTO DIFFon 11-30-2021 BASO # 0.1 103/ul Normal 0.0-0.1 [facility] Comment on above: Performed By: #### I NFLUAB #### [facility] [address] [place] [address] Dr. Alejandra Crystal Basophils/100 WBC (Bld) 0.8 % Normal 0.2-2.0 [facility] Comment on above: Performed By: #### I NFLUAB #### [facility] [address] [place] [address] Dr. Alejandra Crystal EO # 0.0 103/ul Normal 0.0-0.7 [facility] Comment on above: Performed By: #### I NFLUAB #### [facility] [address] [place] [address] Dr. Alejandra Crystal Eosinophils/100 WBC (Bld) 0.3 % Critically low 0.9-7.0 [facility] Comment on above: Performed By: #### I NFLUAB #### [facility] [address] [place] [address] Dr. Alejandra Crystal Erythrocyte distribution width (RBC) [Ratio] 12.8 % Normal 11.0-15.0 [facility] Comment on above: Performed By: #### I NFLUAB #### [facility] [address] [place] [address] Dr. Alejandra Crystal Hematocrit (Bld) [Volume fraction] 48.6 % Critically high 36.0-48.0 [facility] Comment on above: Performed By: #### I NFLUAB #### [facility] [address] [place] [address] Dr. Alejandra Crystal Hemoglobin (Bld) [Mass/Vol] 16.0 g/dL Normal 12.0-16.0 [facility] Comment on above: Performed By: #### I NFLUAB #### [facility] [address] [place] [address] Dr. Alejandra Crystal IG # 0.38 10e3/ul Critically high 0.00-0.03 [facility] Comment on above: Performed By: #### I NFLUAB #### [facility] [address] [place] [address] Dr. Alejandra Crystal IG % 2.7 % Critically high 0.0-0.5 [facility] Comment on above: Performed By: #### I NFLUAB #### [facility] [address] [place] [address] Dr.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 05-18-2022 11:17-0500 Systolic blood pressure 120 mm[Hg] Ade Talamantes [facility] 04-11-2022 17:00-0400 Diastolic blood pressure 83 mm[Hg] Jim Raimrez [facility] 04-11-2022 17:00-0400 Heart rate 76 /min Jim Ramirez [facility] 04-11-2022 17:00-0400 Mean blood pressure 94 mm[Hg] Jim Ramirez [facility] 04-11-2022 17:00-0400 Respiratory rate 20 /min Jim Ramirez [facility] 04-11-2022 17:00-0400 SaO2% (BldA) [Mass fraction] 98 % Jim James [facility] 04-11-2022 17:00-0400 Systolic blood pressure 117 mm[Hg] Jim James [facility] 04-11-2022 16:30-0400 Diastolic blood pressure 78 mm[Hg] Jim James [facility] 04-11-2022 16:30-0400 Heart rate 77 /min Jim James [facility] 04-11-2022 16:30-0400 Mean blood pressure 92 mm[Hg] Jim James [facility] 04-11-2022 16:30-0400 Respiratory rate 14 /min Jim James [facility] 04-11-2022 16:30-0400 SaO2% (BldA) [Mass fraction] 96 % Jim James [facility] 04-11-2022 16:30-0400 Systolic blood pressure 121 mm[Hg] Jim James [facility] 04-11-2022 16:00-0400 Diastolic blood pressure 92 mm[Hg] Jim James [facility] 04-11-2022 16:00-0400 Heart rate 75 /min Jim James [facility] 04-11-2022 16:00-0400 Mean blood pressure 110 mm[Hg] Jim James [facility] 04-11-2022 16:00-0400 Respiratory rate 22 /min Jim James [facility] 04-11-2022 16:00-0400 Systolic blood pressure 146 mm[Hg] Jim James [facility] 04-11-2022 15:01-0400 gluc 123 mg/dL Jim Ramirez [facility] 04-11-2022 15:01-0400 gluc Jim Ramirez [facility] 04-11-2022 14:46-0400 Body temperature 98.6 [degF] Jim Ramirez [facility] 04-11-2022 14:46-0400 Heart rate 86 /min Jim Ramirez [facility] 04-11-2022 14:46-0400 Respiratory rate 18 /min Jim James [facility] 04-09-2022 14:22-0400 Diastolic blood pressure 64 mm[Hg] Ade OLED-T [facility] 04-09-2022 14:22-0400 Heart rate 79 /min Ade OLED-T [facility] 04-09-2022 14:22-0400 Mean blood pressure 86 mm[Hg] Ade OLED-T [facility] 04-09-2022 14:22-0400 Respiratory rate 14 /min Ade OLED-T [facility] 04-09-2022 14:22-0400 Systolic blood pressure 129 mm[Hg] Ade OLED-T [facility] 02-09-2022 10:10-0400 Diastolic blood pressure 66 mm[Hg] Ade OLED-T [facility] 02-09-2022 10:10-0400 Heart rate 72 /min Ade OLED-T [facility] 02-09-2022 10:10-0400 Mean blood pressure 78 mm[Hg] Ade OLED-T [facility] 02-09-2022 10:10-0400 Respiratory rate 16 /min Ade Talamantes [facility] 02-09-2022 10:10-0400 Systolic blood pressure 103 mm[Hg] Ade Talamantes [facility] 01-16-2022 15:04-0400 Diastolic blood pressure 77 mm[Hg] Boy Hai [facility] 01-16-2022 15:04-0400 Heart rate 73 /min Boy Hai [facility] 01-16-2022 15:04-0400 Mean blood pressure 89 mm[Hg] Boy Hai [facility] 01-16-2022 15:04-0400 SaO2% (BldA) [Mass fraction] 95 % Boy Hai [facility] 01-16-2022 15:04-0400 Systolic blood pressure 115 mm[Hg] Boy Hai [facility] 01-16-2022 15:04-0400 Respiratory rate 12 /min Boy Hai [facility] 01-16-2022 14:58-0400 Diastolic blood pressure 49 mm[Hg] Boy Hai [facility] 01-16-2022 14:58-0400 Heart rate 71 /min Boy Hai [facility] 01-16-2022 14:58-0400 Respiratory rate 12 /min Boy Hai [facility] 01-16-2022 14:58-0400 SaO2% (BldA) [Mass fraction] 97 % Boy Hai [facility] 01-16-2022 14:58-0400 Systolic blood pressure 117 mm[Hg] Boy Hai [facility] 01-16-2022 14:41-0400 Body temperature 98.6 [degF] Boy Hai [facility] 01-16-2022 14:41-0400 Diastolic blood pressure 57 mm[Hg] Boy Hai [facility] 01-16-2022 14:41-0400 Heart rate 73 /min Boy Hai [facility] 01-16-2022 14:41-0400 Mean blood pressure 74 mm[Hg] Boy Hai [facility] 01-16-2022 14:41-0400 Respiratory rate 12 /min Boy Hai [facility] 01-16-2022 14:41-0400 SaO2% (BldA) [Mass fraction] 98 % Boy Hai [facility] 01-16-2022 14:41-0400 Systolic blood pressure 109 mm[Hg] Boy Hai [facility] 11-17-2021 08:50-0400 Diastolic blood pressure 76 mm[Hg] Ade Talamantes [facility] 11-17-2021 08:50-0400 Heart rate 62 /min Ade Talamantes [facility] 11-17-2021 08:50-0400 Mean blood pressure 96 mm[Hg] Ade OLED-T [facility] 11-17-2021 08:50-0400 Respiratory rate 18 /min Ade OLED-T [facility] 11-17-2021 08:50-0400 Systolic blood pressure 135 mm[Hg] Ade Talamantes [facility] 10-30-2021 07:57-0400 Diastolic blood pressure 77 mm[Hg] Boy Hai [facility] 10-30-2021 07:57-0400 Heart rate 59 /min Boy Hai [facility] 10-30-2021 07:57-0400 Mean blood pressure 89 mm[Hg] Boy Hai [facility] 10-30-2021 07:57-0400 SaO2% (BldA) [Mass fraction] 98 % Boy Hai [facility] 10-30-2021 07:57-0400 Systolic blood pressure 113 mm[Hg] Boy Hai [facility] 10-30-2021 07:49-0400 Diastolic blood pressure 72 mm[Hg] Boy Hai [facility] 10-30-2021 07:49-0400 Heart rate 61 /min Boy Hai [facility] 10-30-2021 07:49-0400 Respiratory rate 16 /min Boy Hai [facility] 10-30-2021 07:49-0400 SaO2% (BldA) [Mass fraction] 97 % Boy Hai [facility] 10-30-2021 07:49-0400 Systolic blood pressure 103 mm[Hg] Boy Hai [facility] 10-30-2021 07:18-0400 Body temperature 98.24 [degF] Boy Hai [facility] 10-30-2021 07:18-0400 Diastolic blood pressure 64 mm[Hg] Boy Hai [facility] 10-30-2021 07:18-0400 Heart rate 72 /min Boy Hai [facility] 10-30-2021 07:18-0400 Mean blood pressure 74 mm[Hg] Boy Valles [facility] 10-30-2021 07:18-0400 Respiratory rate 14 /min Boy Valles [facility] 10-30-2021 07:18-0400 SaO2% (BldA) [Mass fraction] 97 % Boy Valles [facility] 10-30-2021 07:18-0400 Systolic blood pressure 95 mm[Hg] Boy Valles [facility] Encounters Encounter Date Encounter Type Care Provider Facility Start: 03-04-2024 End: 03-04-2024 ambulatory Andreas French RT(R) Radiology Comment on above: Radiology MRI Start: 03-04-2024 End: 03-04-2024 Patient encounter procedure Anderas French RT(R) Radiology Start: 03-02-2024 ambulatory Devon Sanders acility:[facility] Start: 02-07-2024 End: 02-07-2024 ambulatory GABRIELA BILL Facility:[facility] Start: 02-07-2024 End: 02-07-2024 Patient encounter procedure Gabriela Bill HVAC INSTALLATION TECHNICIAN.SANITATION TRUCK CLEANER Work Phone: [facility] Comment on above: Skull lesion (Primar y Dx) Start: 01-28-2024 End: 01-29-2024 ambulatory MIRANDA JOSE Not Available Start: 01-17-2024 End: 01-17-2024 ambulatory GUSTAVO BARKER Not Available Start: 12-23-2023 End: 12-23-2023 ambulatory GUSTAVO BARKER Not Available Start: 12-20-2023 E-mail encounter fro m caregiver Self [facility] Start: 12-20-2023 Patient encounter procedure Self [facility] Comment on above: Upcoming Appointment s Start: 12-20-2023 End: 12-20-2023 ambulatory GUSTAVO BARKER Not Available Start: 12-09-2023 End: 12-09-2023 ambulatory GUSTAVO BARKER Not Available Start: 12-04-2023 End: 12-04-2023 ambulatory MIRANDA JOSE Not Available Start: 11-11-2023 End: 11-11-2023 ambulatory PEPE ALCAZAR Facility:[facility] Start: 11-11-2023 End: 11-11-2023 Patient encounter procedure Stalin Reyes MD Work Phone: Neurology Comment on above: Intractable chronic migraine without aura and without status migrainosus (Primary Dx); Dizziness; Depression, unspecified depression type; Anxiety; Tardive dyskinesia; Drug-induced tremor Start: 11-08-2023 End: 11-08-2023 Refill Stalin Reyes MD Work Phone: Neurology Comment on above: Refill Request Start: 11-08-2023 End: 11-08-2023 Patient encounter procedure CHELE EPSTEIN [facility] Start: 10-28-2023 End: 10-28-2023 Emergency department patient visit Rosalio Dan [facility] Start: 09-28-2023 End: 09-28-2023 Emergency department patient visit Dandy SKetan Ashton [facility] Start: 09-17-2023 End: 09-17-2023 Emergency department patient visit Dandy SKetan Ashton [facility] Start: 07-29-2023 End: 10-06-2023 ambulatory Ade Talamantes Facility:[facility] Start: 06-25-2023 End: 07-03-2023 Pre-admission assessment Ade Talamantes [facility] Start: 06-10-2023 End: 06-10-2023 ambulatory Ade Talamantes Facility:[facility] Start: 06-10-2023 End: 06-10-2023 Pain Management Ade Talamantes [facility] Start: 05-08-2023 End: 05-08-2023 ambulatory PEPE ALCAZAR Facility:[facility] Start: 05-08-2023 End: 05-08-2023 Patient encounter procedure Stalin Reyes MD Work Phone: Neurology Comment on above: Radiculopathy, lumba r region (Primary Dx); Intractable chronic migraine without aura and without status migrainosus; Essential tremor; Depression, unspecified depression type; Anxiety Start: 05-07-2023 End: 05-07-2023 ambulatory Boy Valles Facility:[facility] Start: 05-07-2023 End: 05-07-2023 Pain Management Boy Valles [facility] Start: 04-19-2023 End: 04-19-2023 ambulatory Ade Talamantes Facility:[facility] Start: 04-19-2023 End: 04-19-2023 Pain Management Ade Talamantes [facility] Start: 03-14-2023 End: 03-15-2023 Emergency department patient visit Chandni Walshkristina [facility] Start: 02-05-2023 End: 02-05-2023 Patient encounter procedure Nathanael Ryan MD Work Phone: [facility] Comment on above: Hemangioma of bone ( Primary Dx); Brain tumor (HCC) Start: 01-24-2023 ambulatory Ade Valderrama RT(R) Ra diology Comment on above: Radiology MRI Start: 01-24-2023 Patient encounter procedure Ade Valderrama RT(R) [facility] [place] Start: 12-26-2022 Telephone encounter Gus Alvarez [facility] Comment on above: Triage (Internal) Start: 12-18-2022 Telephone encounter Keesha delacruz RN Work Phone: [facility] Comment on above: Insurance Authorizat ion (Emgality 120MG/ML auto-injectors (migraine)/) Start: 12-17-2022 End: 12-17-2022 ambulatory STALIN REYES Facility:[facility] Start: 10-13-2022 End: 10-13-2022 ambulatory [facility] Start: 10-01-2022 End: 10-01-2022 Pain Management Ade Talamantes [facility] Start: 09-20-2022 End: 09-20-2022 Patient encounter procedure Pepe Alcazar [facility] Start: 08-28-2022 ambulatory [facility] Start: 08-25-2022 End: 08-26-[address] PEPE ALCAZAR . Facility:[facility] Start: 08-16-2022 End: 08-16-[address] PEPE ALCAZAR . Facility:[facility] Start: 08-14-2022 End: 08-14-2022 Pain Management Boy Valles [facility] Start: 08-13-2022 End: 08-13-[address] PEPE ALCAZAR . Facility:[facility] Start: 07-17-2022 End: 08-01-2022 Pre-admission assessment Boy Valles [facility] Start: 07-03-2022 End: 07-03-2022 Pain Management Boy Valles [facility] Start: 06-06-2022 End: 06-06-[address] PEPE ALCAZAR . Facility:[facility] Start: 06-04-2022 Encounter for genera l adult medical examination without abnormal findings DR PEPE ALCAZAR . [facility] Start: 05-29-2022 End: 05-30-[address] PEPE ALCAZAR . Facility:[facility] Start: 05-29-2022 End: 05-30-2022 Encounter for general adult medical examination without abnormal findings DR PEPE ALCAZAR . Facility:[facility] Start: 05-18-2022 End: 05-18-2022 Pain Management Ade Talamantes [facility] Start: 05-17-2022 End: 05-18-[address] PEPE ALCAZAR . Facility:[facility] Start: 05-15-2022 End: 05-16-[address] PEPE ALCAZAR . Facility:[facility] Start: 04-23-2022 End: 04-23-2022 Patient encounter procedure MIRANDA CAT [facility] Start: 04-11-2022 End: 04-11-2022 Emergency department patient visit Jim Ramirez [facility] Start: 04-09-2022 End: 04-09-2022 Pain Management Ade Talamantes [facility] Start: 04-09-2022 End: 04-10-[address] PEPE ALCAZAR . Facility:[facility] Start: 03-29-2022 End: 03-29-2022 ambulatory MARANDA BARRERA . Facility:[facility] Start: 03-19-2022 End: 03-19-[address] PEPE ALCAZAR . Facility:[facility] Start: 03-05-2022 End: 03-06-[address] PEPE ALCAZAR . Facility:[facility] Start: 02-21-2022 End: 02-21-2022 Patient encounter procedure ADE AMARO [facility] Start: 02-09-2022 End: 02-09-2022 Pain Management Ade Talamantes [facility] Start: 01-29-2022 End: 01-29-[address] PEPE ALCAZAR . Facility:[facility] Start: 01-16-2022 End: 01-16-2022 Pain Management Boy Valles [facility] Start: 01-05-[address] PEPE ALCAZAR . [...] Start: 11-17-2021 End: 11-17-2021 Pain Management Ade Talamantes [facility] Start: 10-30-2021 End: 10-30-2021 Pain Management Boy Valles [facility] Start: 10-07-2017 End: 10-08-2017 Ambulatory REFERRED SELF Facility:[facility] Procedures Date Procedure Procedure Detail Performing Clinician Start: 05-07-2023 Injection of nerve r oot of lumbar spine using fluoroscopic guidance Ade OLED-T Comment on above: L4-L5-50% relief for 1 week Start: 10-13-2022 Follow-up visit Follow-up EDUARDO HYDE Start: 08-14-2022 Injection of nerve r oot of lumbar spine using fluoroscopic guidance Pepe Alcazar Comment on above: 50% relief Start: 01-16-2022 Injection of sacroil iac joint Ade OLED-T Comment on above: left SIJI 45% relief . left SIJI 45% relief . Start: 10-30-2021 Injection of nerve r oot of lumbar spine using fluoroscopic guidance Ade Talamantes Comment on above: 701% relief at least [...] DTaP,Tdap,Td Vaccine (2 - Td or Tdap) [facility] Start: 03-10-2024 End: 03-10-2024 ambulatory 03/10/2024 2:45 PM EDT OT/PT/Speech Visit Physical Therapy [address] [place] [address] Eunice Mercado, PT [address] [place] [address] Back of head and neck hurt the worst. Physical Therapy Comment on above: Back of head and nec k hurt the worst. Start: 03-08-2024 Influenza vaccination [facility] Start: 03-04-2024 End: 03-04-2024 Patient encounter procedure 03/04/2024 3:20 PM EDT Appointment Radiology [address] [place] [address] MRI BRAIN WO/W IVCON Radiology Comment on above: MRI BRAIN WO/W IVCON Start: 02-07-2024 End: 02-07-2024 Patient encounter procedure 02/07/2024 11:00 AM EDT Office Visit [facility] [address] [place] [address] Gabriela Bill APRN.SANITATION TRUCK CLEANER [address] [place] [address] Patient is requesting that the MRI be done at [facility] and her appointment with the [facility] be in person [facility] Comment on above: Patient is requestin g that the MRI be done at [facility] and her appointment with the L[facility]ne be in person Start: 02-06-2024 End: 02-06-2024 Patient encounter procedure 02/06/2024 10:40 AM EDT Appointment Radiology [address] [place], [place] [id number] Hemangioma of bone [D18.09] Radiology Comment on above: Hemangioma of bone [ D18.09] Start: 11-11-2023 End: 11-11-2023 Patient encounter procedure 11/11/2023 1:00 PM EDT Office Visit Neurology [id number] [place] [address] Stalin Reyes MD [address] [place] [address] 6 month follow up Neurology Comment on above: 6 month follow up Start: 03-08-2023 Covid-19 Vaccine ( season) Covid-19 Vaccine () [facility] Start: 03-08-2023 Influenza vaccination C [facility] Start: 2019 Mammography [facility] Start: 2019 Screening for malign ant neoplasm of breast Mammogram Screening [facility] Start: 2009 HPV TESTING HPV TESTING [facility] Start: 2009 Screening for malign ant neoplasm of cervix HPV Testing [facility] Start: 2000 PAP TESTING PAP TESTING [facility] Start: 2000 Screening for malign ant neoplasm of cervix Pap Testing [facility] Start: 1998 Hepatitis B Vaccine (1 of 3 - 19+ 3-dose series) Hepatitis B Vaccine (1 of 3 - 19+ 3-dose series) [facility] Start: 1998 SHINGRIX VACCINE (1 of 2) SHINGRIX VACCINE (1 of 2) [facility] Start: 1998 Urine microalbumin profile DTAP,TDAP,TD (1 - Tdap) [facility] Start: 1997 HEPATITIS C SCREENING HEPATITIS C [facility] Start: 1997 Hepatitis C screening Hepatitis C [facility] Start: 1997 HIV SCREENING HIV SCREENING [facility] Start: 1997 HIV screening HIV Screening [facility] Start: 1990 Screening for malign ant neoplasm of cervix Cervical Cancer Screening [facility] Start: 1985 PNEUMOCOCCAL (1 - PCV) PNEUMOCOCCAL (1 - PCV) [facility] Start: 1985 Pneumococcal vaccination [facility] Start: 1979 HEPATITIS B (1 of 3 - 3-dose series) HEPATITIS B (1 of 3 - 3-dose series) [facility] Start: 1979 Hepatitis B Vaccine (1 of 3 - 3-dose series) Hepatitis B Vaccine (1 of 3 - 3-dose series) [facility] Immunizations Immunization Date Immunization Notes Care Provider Fa cility 09-12-2022 influenza virus vacc ine, unspecified formulation [facility] 09-12-2022 SARS-CoV-2 (COVID-19 ) mRNAMUL.ORD![id number] [facility] 09-12-2022 tetanus toxoid, redu leticia diphtheria toxoid, and acellular pertussis vaccine, adsorbed [facility] 01-24-2022 SARS-CoV-2 (COVID-19 ) mRNA-[address] [facility] 11-16-2020 SARS-CoV-2 (COVID-19 ) mRNA-[address] [facility] 10-19-2020 SARS-CoV-2 (COVID-19 ) mRNA-[address] [facility] 05-04-2020 influenza virus vacc ine, unspecified formulation [facility] 08-24-2019 influenza virus vacc ine, unspecified formulation Chandni Hart [facility] 03-26-2017 influenza virus vacc ine, unspecified formulation Chandni kristina [facility] Payers Date Payer Category Payer Self-pay 2022 Medicaid [facility] [id number] 2022-Present [phone] [address] [place] [address] Medicaid [id number] 1979 Unknown [id number] 2.16.840.1.887394.3.579.2.593 1979 Unknown [id number] 2.16.840.1.244826.3.579.2.593 1979 Unknown [id number] 2.16.840.1.427927.3.579.2.593 1979 Unknown [id number] 2.16.840.1.420924.3.579.2.593 1979 Unknown [id number] 2.16.840.1.210511.3.579.2.593 1979 Unknown [id number] 2.16.840.1.524568.3.579.2.593 1979 Unknown [id number] 2.16.840.1.357577.3.579.2.593 1979 Unknown [id number] 2.16.840.1.360820.3.579.2.593 1979 Unknown [id number] 2.16.840.1.243442.3.579.2.593 1979 Unknown [id number] 2.16.840.1.291703.3.579.2.593 1979 Unknown [id number] 2.16.840.1.861629.3.579.2.593 1979 Unknown [id number] 2.16.840.1.679239.3.579.2.593 1979 Unknown [id number] 2.16.840.1.567220.3.579.2.593 1979 Unknown [id number] 2.16.840.1.834698.3.579.2.593 1979 Unknown [id number] 2.16.840.1.088096.3.579.2.593 1979 Unknown [id number] 2.16.840.1.618081.3.579.2.593 1979 Unknown [id number] 2.16.840.1.734898.3.579.2.593 1979 Unknown [id number] 2.16.840.1.055828.3.579.2.593 1979 Unknown [id number] 2.16.840.1.978469.3.579.2.593 1979 Unknown [id number] 2.16.840.1.495058.3.579.2.72 1979 Unknown [id number] 2.16.840.1.318026.3.579.2.727 1979 Unknown [id number] 2.16.840.1.361368.3.579.2.727 1979 Unknown [id number] 2.16.840.1.035572.3.579.2.72 1979 Unknown [id number] 2.16.840.1.163391.3.579.2.727 1979 Unknown [id number] 2.16.840.1.753996.3.579.2.72 1979 Unknown [id number] 2.16.840.1.682185.3.579.2.727 1979 Unknown [id number] 2.16.840.1.111903.3.579.2.727 1979 Unknown [id number] 2.16.840.1.815802.3.579.2.727 1979 Unknown [id number] 2.16.840.1.980118.3.579.2.727 1979 Unknown [id number] 2.16.840.1.006746.3.579.2.1259 1979 Unknown [id number] 2.16.840.1.935075.3.579.2.1259 1979 Unknown [id number] 2.16.840.1.823976.3.579.2.9 1979 Unknown [id number] 2.16.840.1.623575.3.579.2.9 1979 Unknown [id number] 2.16.840.1.913936.3.579.2.9 1979 Unknown [id number] 2.16.840.1.557511.3.579.2.1259 1959 Medicaid [id number] 1959 Unknown [id number] 1959 Unknown [id number] 1959 Unknown [id number] Unknown [id number] 2.16.840.1.056034.3.579.2.531 Social History Date Type Detail Facility Start: 05-12-2015 End: 07-04-2020 Tobacco smoking status Never smoked tobacco (finding) [facility] Comment on above: Deniessd Start: 12-17-2022 End: 02-05-2023 Sex Assigned At Female [facility] Start: 05-12-2015 Tobacco use and exposure Smokeless tobacco non-user [facility] Work Phone: Start: 12-17-2022 End: 02-07-2024 Alcohol intake Current drinker of alcohol (finding) [facility] Start: 05-12-2015 Alcohol Comment occassional [facility] Start: 1979 Sex Assigned At Not on file [facility] Start: 12-17-2022 End: 02-05-2023 History of Social function [facility] Adult Depression Screening Assessment 5 [facility] Functional Status Date Assessment Result Facility 10-28-2023 Functional Status N/A [facility] 09-28-2023 Functional Status N/A [facility] 09-17-2023 Functional Status N/A [facility] 06-10-2023 Functional Status N/A [facility] 05-07-2023 Functional Status N/A [facility] 04-19-2023 Functional Status N/A [facility] 03-14-2023 Functional Status N/A [facility] 10-01-2022 Functional Status N/A [facility] 08-14-2022 Functional Status N/A [facility] 05-18-2022 Functional Status N/A [facility] 04-11-2022 Functional Status N/A [facility] 04-09-2022 Functional Status N/A [facility] 02-09-2022 Functional Status N/A [facility] 01-16-2022 Functional Status N/A [facility] Clinical Notes 11-17-2021 to 03-04-2024 Andreas French RT(R) - 03/04/2024 3:25 PM Gabriela Arguello APRN.SANITATION TRUCK CLEANER - 02/07/2024 10:26 AM Ade Gavin MA - 02/07/2024 10:22 AM Ade Gavin MA - 02/07/2024 10:22 AM EDT Note Date & Type Note Facility 03-04-2024 Note HNO ID: [id number] Author: ANDREAS FRENCH RT(R) Service: ? Author Type: Technologist Type: Progress Notes Filed: 03/04/2024 15:26 Note Text: Radiology Service Progress Note DATE OF SERVICE: March 04, 2024 TIME: 3:26 PM PATIENT IDENTITY VERIFICATION COMPLETED USING TWO (2) STANDARD IDENTIFIERS: Name and Date of confirmed by patient verbally. FALL SCREENING: Has the patient had 2 falls in the last year or 1 fall with injury or currently using an Ambulatory Assistive Device (Walker, Cane, Wheelchair, Crutches, etc.)? No PATIENT GENDER DATA: Female. status: : No status: NO. PATIENT RELEVANT IMPLANT DATA REVIEWED: Yes PATIENT PRESENTS WITH AN IMPLANTABLE OR ATTACHED BRAKE COUPLER ROAD FREIGHT: No ALLERGIES: Reviewed and unchanged CONTRAST ALLERGY: NO. EXAM: MRI - CONTRAST TYPE: GROUP II PERIPHERAL IV DATA: Ambulatory: A peripheral IV was started in the Left hand with a Angio cath: 24 gauge. RADIOLOGY DEPARTMENT: MR; Exam(s) Completed: Head: Routine Brain SIGNATURE: RT Jeevan(R) PATIENT NAME: Mitesh Burgess DATE: March 04, 2024 TIME: 3:[address] [facility] 03-04-2024 History of Presen t illness Narrative Radiology Service Progress Note DATE OF SERVICE: March 04, 2024 TIME: 3:26 PM PATIENT IDENTITY VERIFICATION COMPLETED USING TWO (2) STANDARD IDENTIFIERS: Name and Date of confirmed by patient verbally. FALL SCREENING: Has the patient had 2 falls in the last year or 1 fall with injury or currently using an Ambulatory Assistive Device (Walker, Cane, Wheelchair, Crutches, etc.)? No PATIENT GENDER DATA: Female. status: : No status: NO. PATIENT RELEVANT IMPLANT DATA REVIEWED: Yes PATIENT PRESENTS WITH AN IMPLANTABLE OR ATTACHED BRAKE COUPLER ROAD FREIGHT: No ALLERGIES: Reviewed and unchanged CONTRAST ALLERGY: NO. EXAM: MRI - CONTRAST TYPE: GROUP II PERIPHERAL IV DATA: Ambulatory: A peripheral IV was started in the Left hand with a Angio cath: 24 gauge. RADIOLOGY DEPARTMENT: MR; Exam(s) Completed: Head: Routine Brain SIGNATURE: RT Jeevan(R) PATIENT NAME: Mitesh Burgess DATE: March 04, 2024 TIME: 3:26 PM documented in this encounter [facility] 02-07-2024 Note HNO ID: [id number] Author: GABRIELA BILL APRN.SANITATION TRUCK CLEANER Service: ? Author Type: Nurse Practitioner Type: Progress Notes Filed: 02/07/2024 10:43 Note Text: Neurological [place] [facility] NEURO-ONCOLOGY OUTPATIENT NOTE PURPOSE OF VISIT: Consultation requested by Dr. Nathanael Ryan for an opinion regarding skull hemangioma and my final recommendations will be communicated to the referring physician by way of shared medical record or letter to requesting physician via [place] mail. CHIEF COMPLAINT : skull hemangioma Subjective HISTORY OF PRESENT ILLNESS: Mitesh Burgess is a 43 year old year old female who is here for a follow-up visit for skull hemangioma that was found during work up dizziness and headache. INTERVAL HISTORY 02/07/24 She presents today with her daughter. Unfortunately no MRI has been completed. She states she continues to have headaches. SOCIAL HISTORY: Social History Tobacco Use Smoking status: Never Smokeless tobacco: Never Substance Use Topics Alcohol use: Yes Comment: occassional Drug use: No PAST MEDICAL HISTORY No date: Acquired cyst of kidney No date: Acute costochondritis No date: Anxiety associated with depression No date: Bronchospasm No date: Chest pain No date: Depression No date: Near syncope No date: Pleurisy FAMILY HISTORY Problem Relation Age of Onset Heart Mother valvular problems None Father None Sister Current Outpatient Medications Medication Sig levothyroxine (SYNTHROID) 100 mcg tablet Take 100 mcg by mouth once daily. liothyronine (CYTOMEL) 25 mcg tablet Take 25 mcg by mouth once daily. Cholecalciferol, Vitamin D3, 125 mcg (5,000 unit) cap Take 5,000 Units by mouth once daily. multivitamin (MULTIPLE VITAMINS ORAL) Take 1 tablet by mouth once daily. galcanezumab-gnlm (EMGALITY PEN) 120 mg/mL pen Inject 1 mL under the skin once every month. Do not shake. AUSTEDO XR 24 mg tablet AUSTEDO XR 12 mg tablet CAPLYTA 42 mg capsule TAKE 1 CAPSULE BY ORAL ROUTE 1 TIME PER DAY CHANGE IN DOSAGE traZODone (DESYREL) 50 mg tablet Take 50 mg by mouth daily at bedtime. riboflavin, vitamin B2, (VITAMIN B2) 100 mg tab Take 1 tablet by mouth once daily. pregabalin (LYRICA) 150 mg capsule Take 1 capsule by mouth two times a day. magnesium oxide (MAG-OX) 400 mg (241.3 mg magnesium) tablet Take 1 tablet by mouth two times a day. diclofenac, EC, (VOLTAREN) 75 mg EC tablet Take 75 mg by mouth once daily. meclizine (ANTIVERT) 12.5 mg tab Take 1 tablet by mouth twice daily as needed. busPIRone HCl 30 mg tablet twice daily. ondansetron orally disintegrating (ZOFRAN ODT) 4 mg disintegrating tablet as needed. desvenlafaxine ER (PRISTIQ) 100 mg 24 hr tablet once daily. Takes 2 tabs cetirizine (ZYRTEC) 10 mg tablet lamoTRIgine (LAMICTAL) 200 mg tablet valbenazine (INGREZZA) 60 mg capsule Take 80 mg by mouth once daily. levothyroxine (SYNTHROID) 75 mcg tablet Take 1 tablet by mouth every afternoon. liothyronine (CYTOMEL) 5 mcg tablet Take 4 tablets by mouth every afternoon. lamoTRIgine (LAMICTAL) 25 mg tablet daily at bedtime. Takes 2 tabs along with 200 mg dicyclomine (BENTYL) 10 mg capsule Take 10 mg by mouth. (Patient not taking: Reported on 11/11/2023) No current facility-administered medications for this visit. REVIEW OF SYSTEMS : Neurological : + complaint of headache No complaint of tinnitus No complaint of decreased hearing No complaint of diplopia No complaints of blurred vision. No complaint of arm/leg numbness No problem with limb coordination No complaint of syncope No complaints of seizures. No complaints of memory changes or disorientation. + vertigo General : Constitutional: No recent fever or weight loss. Eyes: No history of glaucoma or cataracts ENMT: No recent ear infection, nasal congestion, mouth sores or sore throat. CV: No history of chest pain, palpitations or leg swelling Respiratory: No history of SOB, wheezing or recent cough. Gastrointestinal: No history of nausea, vomiting, dysphagia or abdominal pain. Genitourinary: No history of hematuria or dysuria. Musculoskeletal: No complaint of arthritis, unstable gait or arm/leg weakness Psychiatric: No history of hallucinations, depression, or anxiety Objective PHYSICAL EXAMINATION: BP 113/61 Pulse 71 Temp 36.6 ?C (97.9 ?F) (Oral) Resp 18 Ht 160.3 cm (5' 3.11 ) Wt 94.5 kg (208 lb 5.4 oz) SpO2 98% BMI 36.78 kg/m? General appearance: Well appearing, alert, in no acute distress, well-hydrated, well nourished. Skin: Skin color, texture, turgor normal, no suspicious rashes or lesions Oropharynx: Lips, mucosa, and tongue normal, teeth and gums normal, oropharynx normal, + tardive dyskenesia NEUROLOGICAL EXAM: Higher integrative functions: Oriented to person, place AND time. Memory: Good recent and remote. Attention Span and Concentration: Good. Language: Accurate naming of objects. Good comprehe (more content not included)... [facility] 02-07-2024 History of Presen t illness Narrative Images from the original note were not included. Neurological [place] [facility] NEURO-ONCOLOGY OUTPATIENT NOTE PURPOSE OF VISIT: Consultation requested by Dr. Nathanael Ryan for an opinion regarding skull hemangioma and my final recommendations will be communicated to the referring physician by way of shared medical record or letter to requesting physician via [place] mail. CHIEF COMPLAINT : skull hemangioma Subjective HISTORY OF PRESENT ILLNESS: Mitesh Burgess is a 43 year old year old female who is here for a follow-up visit for skull hemangioma that was found during work up dizziness and headache. INTERVAL HISTORY 02/07/24 She presents today with her daughter. Unfortunately no MRI has been completed. She states she continues to have headaches. SOCIAL HISTORY: Social History Tobacco Use Smoking status: Never Smokeless tobacco: Never Substance Use Topics Alcohol use: Yes Comment: occassional Drug use: No PAST MEDICAL HISTORY No date: Acquired cyst of kidney No date: Acute costochondritis No date: Anxiety associated with depression No date: Bronchospasm No date: Chest pain No date: Depression No date: Near syncope No date: Pleurisy FAMILY HISTORY Problem Relation Age of Onset Heart Mother valvular problems None Father None Sister Current Outpatient Medications Medication Sig levothyroxine (SYNTHROID) 100 mcg tablet Take 100 mcg by mouth once daily. liothyronine (CYTOMEL) 25 mcg tablet Take 25 mcg by mouth once daily. Cholecalciferol, Vitamin D3, 125 mcg (5,000 unit) cap Take 5,000 Units by mouth once daily. multivitamin (MULTIPLE VITAMINS ORAL) Take 1 tablet by mouth once daily. galcanezumab-gnlm (EMGALITY PEN) 120 mg/mL pen Inject 1 mL under the skin once every month. Do not shake. AUSTEDO XR 24 mg tablet AUSTEDO XR 12 mg tablet CAPLYTA 42 mg capsule TAKE 1 CAPSULE BY ORAL ROUTE 1 TIME PER DAY CHANGE IN DOSAGE traZODone (DESYREL) 50 mg tablet Take 50 mg by mouth daily at bedtime. riboflavin, vitamin B2, (VITAMIN B2) 100 mg tab Take 1 tablet by mouth once daily. pregabalin (LYRICA) 150 mg capsule Take 1 capsule by mouth two times a day. magnesium oxide (MAG-OX) 400 mg (241.3 mg magnesium) tablet Take 1 tablet by mouth two times a day. diclofenac, EC, (VOLTAREN) 75 mg EC tablet Take 75 mg by mouth once daily. meclizine (ANTIVERT) 12.5 mg tab Take 1 tablet by mouth twice daily as needed. busPIRone HCl 30 mg tablet twice daily. ondansetron orally disintegrating (ZOFRAN ODT) 4 mg disintegrating tablet as needed. desvenlafaxine ER (PRISTIQ) 100 mg 24 hr tablet once daily. Takes 2 tabs cetirizine (ZYRTEC) 10 mg tablet lamoTRIgine (LAMICTAL) 200 mg tablet valbenazine (INGREZZA) 60 mg capsule Take 80 mg by mouth once daily. levothyroxine (SYNTHROID) 75 mcg tablet Take 1 tablet by mouth every afternoon. liothyronine (CYTOMEL) 5 mcg tablet Take 4 tablets by mouth every afternoon. lamoTRIgine (LAMICTAL) 25 mg tablet daily at bedtime. Takes 2 tabs along with 200 mg dicyclomine (BENTYL) 10 mg capsule Take 10 mg by mouth. (Patient not taking: Reported on 11/11/2023) No current facility-administered medications for this visit. REVIEW OF SYSTEMS : Neurological : + complaint of headache No complaint of tinnitus No complaint of decreased hearing No complaint of diplopia No complaints of blurred vision. No complaint of arm/leg numbness No problem with limb coordination No complaint of syncope No complaints of seizures. No complaints of memory changes or disorientation. + vertigo General : Constitutional: No recent fever or weight loss. Eyes: No history of glaucoma or cataracts ENMT: No recent ear infection, nasal congestion, mouth sores or sore throat. CV: No history of chest pain, palpitations or leg swelling Respiratory: No history of SOB, wheezing or recent cough. Gastrointestinal: No history of nausea, vomiting, dysphagia or abdominal pain. Genitourinary: No history of hematuria or dysuria. Musculoskeletal: No complaint of arthritis, unstable gait or arm/leg weakness Psychiatric: No history of hallucinations, depression, or anxiety Objective PHYSICAL EXAMINATION: BP 113/61 Pulse 71 Temp 36.6 C (97.9 F) (Oral) Resp 18 Ht 160.3 cm (5' 3.11 ) Wt 94.5 kg (208 lb 5.4 oz) SpO2 98% BMI 36.78 kg/m General appearance: Well appearing, alert, in no acute distress, well-hydrated, well nourished. Skin: Skin color, texture, turgor normal, no suspicious rashes or lesions Oropharynx: Lips, mucosa, and tongue normal, teeth and gums normal, oropharynx normal, + tardive dyskenesia NEUROLOGICAL EXAM: Higher integrative functions: Oriented to person, place & time. Memory: Good recent and remote. Attention Span and Concentration: Good. Language: Accurate naming of objects. Good comprehension. Fund of Knowledge: Good. 2nd CN: Full visual rodriguez. 3rd,4th,6th CN: Pupils (=), round, react to light, full extraocular movements. 5th CN: No decrease in facial sensation 7th CN: Facial muscles symmetric and strong. 8th CN: Hears finger rub well bilaterally. 9th CN: Gag not tested 10th CN: Spontaneous palate movement, full and symmetric. 11th CN: Full strength in shoulder shrug. 12th CN: Tongue protrusion full and midline. Sensation: No decrease in sensation in upper or lower limbs to touch. Musculoskeletal: Gait is normal. Motor: 5/5, R=L, UE=LE. Normal muscle tone without atrophy in all limbs. Coordination: Rapid alternating movements fast and smooth all limbs. No dysdiadochokinesis. IMAGING STUDIES: MRI Brain WO/W IVCON MRI Report MRI BRAIN WO/W IVCON Exam [...] anxiety, depression, skull mass, seen in the [facility] for General Neurology for: Dizziness, headache and [...] and is most compatible with intraosseous hemangioma. Clinical Trials Nurse: DONNELL Transcribe Date/Time: Jan 24 2023 2:35P Dictated by : DONAL BURNS MD This examination was interpreted and the report reviewed and electronically signed by: DONAL BURNS MD on Jan 24 2023 2:42PM EST MEDICAL DECISION MAKING Assessment & Plan 1. Left parietal skull hemangioma - Unfortunately she did not complete her MRI, will send her to scheduling to have MRI scheduled, will call the results and devise follow up plan - The patient has our contact information and was advised to call if new symptoms, questions or concerns arise prior to next scheduled visit. - All questions were answered. Gabriela Bill APRN.CNP Certified Nurse Practitioner cc: Nathanael Ryan MD--EPIC documented in this encounter [facility] 02-07-2024 Nurse Note Additional intake questions: Has the patient had fever, nausea, vomiting, diarrhea, constipation, fatigue for > 1 week? No Does the patient have a decreased appetite? No Does patient want to see a Counter Attendant? No (yes to any of above refer patient to schedulers for dietitian appointment) ) Does patient have any new or increased numbness or tingling of extremities? No Is patient interested in fertility information? No Does patient need any prescription refills? No Does patient have an advanced directive in place? No, Patient referred to [facility] 02-07-2024 Nurse Note Additional intake questions: Has the patient had fever, nausea, vomiting, diarrhea, constipation, fatigue for > 1 week? No Does the patient have a decreased appetite? No Does patient want to see a Counter Attendant? No (yes to any of above refer patient to schedulers for dietitian appointment) ) Does patient have any new or increased numbness or tingling of extremities? No Is patient interested in fertility information? No Does patient need any prescription refills? No Does patient have an advanced directive in place? No, Patient referred to [facility] documented in this encounter [facility] 11-11-2023 Note HNO ID: [id number] Author: STALIN REYES MD Service: ? Author Type: Physician Type: Progress Notes Filed: 11/11/2023 13:34 Note Text: [facility] General Neurology Follow up/ Established patient visit Individuals who were included in, or assisted with the encounter were: Mitesh Burgess Stalin Reyes MD Chief Complaint/Issues: Mitesh Burgess is a 43 year old R handed female w PMH chronic migraine on Emgality, anxiety, depression, tardive dyskinesia from psychiatric meds on [place], skull mass following with brain tumor clinic, seen in the [facility] for General Neurology for: Dizziness, headache and hand tremor Most Recent Neurological Assessment and Plan: Last Filed Values Date of Most Recent Assessment and Plan 05/08/23 Specialty General Neurology Assessment Mitesh Burgess is a 43 year old R handed female w PMH chronic migraine stopped Emgality half year ago, anxiety, depression, skull mass, seen in the [facility] for General Neurology for: 1. Dizziness, headache [...] have her follow up with pain management Plan --Reduce lyrica to 150mg twice a day --Talk with your psychiatrist to see whether your psychiatric medication can be reduced because the tremor and sedation might be side effect of those medications. --Let me know if you need a referral to spine medicine --Continue Emgality --Try magnesium 400mg twice a day for headache --Follow up in 6 months HPI/Interval History: Tremor: She has been [...] Lamotrigine 300mg daily. Buspirone 30mg bid, She was on seroquel and ingrezza. 11/11/2023 She is back on Emgality. Still has headache sometimes but she can function with it. She takes tylenol sometimes. Lyrica was reduced to 150mg bid. Dizziness is better but still bothers her sometimes. Stopped ingrezza but on Pristiq 200mg daily. She feels that it makes her dizzy. Regarding the left parietal bone lesion, she [...] compatible with intraosseous hemangioma. General Examination: BP 102/78 (BP Site: Left Arm, BP Position: Sitting, BP Cuff Size: Large Adult) Pulse 94 Temp 36.4 ?C (97.6 ?F) Ht 160 cm (5' 3 ) Wt 98 kg (216 lb) SpO2 97% BMI 38.26 kg/m? General: Awake, alert, interactive, no acute distress, good nutritional status, normal development, well-kept Neurological Exam Mental Status Alert, fully oriented, attentive, with normal cognition, memory, speech and affect. Cranial Nerves Extraocular movements normal. No nystagmus, no ptosis, and pupils equal. Face symmetrical. Tongue normal. Motor Examination and Coordination Motor examination with normal bulk, strength and tone. No drift. Normal rapid alternating movements and coordination. Tardive dyskinesia in her tongue. No significant hand tremor Reflexes Deep tendon reflexes graded by MRC Sensation Sensation intact to light touch, pinprick, proprioception and vibration. Gait Arises easily. Casual gait and Romberg are normal. Can not rise on heels and toes. Assessment AND Plan 11/11/2023 - General NeurologyStalin MD ASSESSMENT Mitesh Burgess is a 4 (more content not included)... [facility] 11-11-2023 Note HNO ID: [id number] Author: NOREEN WEBBER MA Service: ? Author Type: Coffee Weigher Type: Progress Notes Filed: 11/11/2023 13:34 Note Text: 11/04/2023 PROMIS Global Health Physical Health Summary Physical health: Fair Everyday physical activity, ability: Mostly Fatigue: Moderate Pain level: 6 General health: Good Social activities/roles, ability: Fair Physical Health T-Score 39.8 (Fair) Physical Health Percentile 15 PROMIS Global Health Mental Health Summary Quality of life: Good Mental health (mood,thinking): Good Social satisfaction: Fair Emotional problems (anxious,depressed): Often Mental Health T-Score 38.8 (Fair) Mental Health Percentile 13 Percentiles provide an indication of how a patient's score ranks in relation to the [place] general population. > 31st percentile is within normal limits or better *< 31st percentile is at least ? SD worse than population, which may be clinically relevant < 16th percentile is at least 1 SD worse than population and warrants attention 11/04/2023 Sleep Apnea Probability Snores loudly: No Tired, fatigued or sleepy in daytime: Yes Stops breathing or choking/gasping during sleep: No High blood pressure: No Sleep Apnea Probability Score: 17 (Sleep study not recommended) [facility] 11-11-2023 Instructions Stalin Reyes MD - 11/11/2023 1:14 PM EDT --Your Pristiq may cause dizziness. You can consider to reduce it to 100mg daily to see whether the dizziness gets better or not --Vestibular therapy for your dizziness --Continue Emgality --try vitamin B2 at 100mg daily for headache prevention --Limit tylenol to less than 2 days a week documented in this encounter [facility] 11-11-2023 History of Presen t illness Narrative Images from the original note were not included. [facility] General Neurology Follow up/ Established patient visit Individuals who were included in, or assisted with the encounter were: Mitesh Burgess Stalin Reyes MD Chief Complaint/Issues: Mitesh Burgess is a 43 year old R handed female w PMH chronic migraine on Emgality, anxiety, depression, tardive dyskinesia from psychiatric meds on Austedo, skull mass following with brain tumor clinic, seen in the [facility] for General Neurology for: Dizziness, headache and hand tremor Most Recent Neurological Assessment and Plan: Last Filed Values Date of Most Recent Assessment and Plan 05/08/23 Specialty General Neurology Assessment Mitesh Burgess is a 43 year old R handed female w PMH chronic migraine stopped Emgality half year ago, anxiety, depression, skull mass, seen in the [facility] for General Neurology for: 1. Dizziness, headache [...] have her follow up with pain management Plan --Reduce lyrica to 150mg twice a day --Talk with your psychiatrist to see whether your psychiatric medication can be reduced because the tremor and sedation might be side effect of those medications. --Let me know if you need a referral to spine medicine --Continue Emgality --Try magnesium 400mg twice a day for headache --Follow up in 6 months HPI/Interval History: Tremor: She has been [...] Lamotrigine 300mg daily. Buspirone 30mg bid, She was on seroquel and ingrezza. 11/11/2023 She is back on Emgality. Still has headache sometimes but she can function with it. She takes tylenol sometimes. Lyrica was reduced to 150mg bid. Dizziness is better but still bothers her sometimes. Stopped ingrezza but on Pristiq 200mg daily. She feels that it makes her dizzy. Regarding the left parietal bone lesion, she [...] compatible with intraosseous hemangioma. General Examination: BP 102/78 (BP Site: Left Arm, BP Position: Sitting, BP Cuff Size: Large Adult) Pulse 94 Temp 36.4 C (97.6 F) Ht 160 cm (5' 3 ) Wt 98 kg (216 lb) SpO2 97% BMI 38.26 kg/m General: Awake, alert, interactive, no acute distress, good nutritional status, normal development, well-kept Neurological Exam Mental Status Alert, fully oriented, attentive, with normal cognition, memory, speech and affect. Cranial Nerves Extraocular movements normal. No nystagmus, no ptosis, and pupils equal. Face symmetrical. Tongue normal. Motor Examination and Coordination Motor examination with normal bulk, strength and tone. No drift. Normal rapid alternating movements and coordination. Tardive dyskinesia in her tongue. No significant hand tremor Reflexes Deep tendon reflexes graded by MRC Sensation Sensation intact to light touch, pinprick, proprioception and vibration. Gait Arises easily. Casual gait and Romberg are normal. Can not rise on heels and toes. Assessment & Plan 11/11/2023 - General Neurology, Stalin Reyes MD ASSESSMENT Mitesh Burgess is a 43 year old R handed female w PMH chronic migraine on Emgality, anxiety, depression, tardive dyskinesia from psychiatric meds on Austedo, skull mass following with brain tumor clinic, seen in the [facility] for General Neurology for: 1. Dizziness, headache and hand tremor --Tremor: I don't see tremor today. It's mainly medication side effect with perhaps enhanced physiological tremor. I do not see Parkinsonism at this time. --Chronic migraine: doing well on Emgality. --Dizziness: It could be largely attributable to medication side effects. --Skull mass: following with center of brain tumor. --Anxiety and depression --Chronic pain in left leg: on lyrica 150mg bid --Tardive dyskinesia: on austedo PLAN --Pristiq may cause dizziness. Consider to reduce it to 100mg daily to see whether the dizziness gets better or not --Vestibular therapy for your dizziness --Continue Emgality --try vitamin B2 at 100mg daily for headache prevention --Limit tylenol to less than 2 days a week No diagnosis found. No follow-ups on file. = Data Review Objective Current Outpatient Medications Medication Sig galcanezumab-gnlm (EMGALITY PEN) 120 mg/mL pen Inject 1 mL under the skin once every month. Do not shake. pregabalin (LYRICA) 150 mg capsule Take 1 capsule by mouth two times a day. magnesium oxide (MAG-OX) 400 mg (241.3 mg magnesium) tablet Take 1 tablet by mouth two times a day. diclofenac, EC, (VOLTAREN) 75 mg EC tablet Take 75 mg by mouth once daily. meclizine (ANTIVERT) 12.5 mg tab Take 1 tablet by mouth twice daily as needed. busPIRone HCl 30 mg tablet twice daily. ondansetron orally disintegrating (ZOFRAN ODT) 4 mg disintegrating tablet as needed. desvenlafaxine ER (PRISTIQ) 100 mg 24 hr tablet once daily. Takes 2 tabs cetirizine (ZYRTEC) 10 mg tablet lamoTRIgine (LAMICTAL) 200 mg tablet valbenazine (INGREZZA) 60 mg capsule Take 80 mg by mouth once daily. levothyroxine (SYNTHROID) 75 mcg tablet Take 1 tablet by mouth every afternoon. liothyronine (CYTOMEL) 5 mcg tablet Take 4 tablets by mouth every afternoon. lamoTRIgine (LAMICTAL) 25 mg tablet daily at bedtime. Takes 2 tabs along with 200 mg dicyclomine (BENTYL) 10 mg capsule Take 10 mg by mouth. (Patient not taking: Reported on 11/11/2023) No current facility-administered medications for this visit. [...] on 06/24/18 EMG(NEURO/NI) Result Value Ref Range Textile Conservator Please click on 'View Neuro EMG' in the Scanned Documents area BELOW to obtain complete EMG data and result. Outside Data/Labs: Subjective Patient-Entered Data: 11/11/23 - GENERAL NEUROLOGY SCORES 11/04/2023 PROMIS 10 Health, in general Good Quality of life, in general Good Physical health, in general Fair Mental health, in general Good Social activities satisfaction Fair Performing ADL's Mostly Social role satisfaction Fair Pain, on average 6 Fatigue, on average Moderate Emotional problems Often PHYSICAL Score 39.8 (Fair) MENTAL Score 38.8 (Fair) 03/25/2018 06/24/2018 Depression Screening PHQ-2 Score 2 5 PHQ-9 Score 19 22 TERE-2 Total Score 6 6 TERE-7 Total Score 17 15 11/04/2023 SLEEP APNEA SCORE Probability of moderate-severe sleep apnea (%) SAPS V2 17 (Sleep study not recommended) No data to display No data to display I spent a total of 30 minutes on the date of the service which included preparing to see the patient, uode-qk-gysj patient care, completing clinical documentation, obtaining and/or reviewing separately obtained history, performing a medically appropriate examination, counseling and educating the patient/family/caregiver, ordering medications, tests, or procedures, independently interpreting results (not separately reported), communicating results to the patient/family/caregiver, and care coordination (not separately reported). Stalin Reyes MD 11/04/2023 PROMIS Global Health Physical Health Summary Physical health: Fair Everyday physical activity, ability: Mostly Fatigue: Moderate Pain level: 6 General health: Good Social activities/roles, ability: Fair Physical Health T-Score 39.8 (Fair) Physical Health Percentile 15 PROMIS Global Health Mental Health Summary Quality of life: Good Mental health (mood,thinking): Good Social satisfaction: Fair Emotional problems (anxious,depressed): Often Mental Health T-Score 38.8 (Fair) Mental Health Percentile 13 Percentiles provide an indication of how a patient's score ranks in relation to the [place] general population. > 31st percentile is within normal limits or better *< 31st percentile is at least SD worse than population, which may be clinically relevant < 16th percentile is at least 1 SD worse than population and warrants attention 11/04/2023 Sleep Apnea Probability Snores loudly: No Tired, fatigued or sleepy in daytime: Yes Stops breathing or choking/gasping during sleep: No High blood pressure: No Sleep Apnea Probability Score: 17 (Sleep study not recommended) 11/04/2023 PROMIS Global Health Physical Health Summary Physical health: Fair Everyday physical activity, ability: Mostly Fatigue: Moderate Pain level: 6 General health: Good Social activities/roles, ability: Fair Physical Health T-Score 39.8 (Fair) Physical Health Percentile 15 PROMIS Global Health Mental Health Summary Quality of life: Good Mental health (mood,thinking): Good Social satisfaction: Fair Emotional problems (anxious,depressed): Often Mental Health T-Score 38.8 (Fair) Mental Health Percentile 13 Percentiles provide an indication of how a patient's score ranks in relation to the [place] general population. > 31st percentile is within normal limits or better *< 31st percentile is at least SD worse than population, which may be clinically relevant < 16th percentile is at least 1 SD worse than population and warrants attention 11/04/2023 Sleep Apnea Probability Snores loudly: No Tired, fatigued or sleepy in daytime: Yes Stops breathing or choking/gasping during sleep: No High blood pressure: No Sleep Apnea Probability Score: 17 (Sleep study not recommended) documented in this encounter [facility] 11-11-2023 Telephone encounter Note Physician: Dr Reyes Call from pharmacy requesting refill. Please E-Scribe Last OV: 05/08/23 with Man Future OV: 11/11/23 with Man Requested Prescriptions Pending Prescriptions Disp Refills galcanezumab-gnlm (EMGALITY PEN) 120 mg/mL pen 1 mL 5 Sig: Inject 1 mL under the skin once every month. Do not shake. [facility] Phone #: [phone] Yessica Saunders [facility] 11-11-2023 Miscellaneous Notes Physician: Dr Reyes Call from pharmacy requesting refill. Please E-Scribe Last OV: 05/08/23 with Man Future OV: 11/11/23 with Man Requested Prescriptions Pending Prescriptions Disp Refills galcanezumab-gnlm (EMGALITY PEN) 120 mg/mL pen 1 mL 5 Sig: Inject 1 mL under the skin once every month. Do not shake. [facility] Phone #: [phone] Yessica Saunders documented in this encounter [facility] 10-28-2023 Hospital Discharg e instructions Patient Education [...] provider gives to you. In general: Take wvmq-fxz-typdybg and prescription medicines only as told by [...] provider. Document Revised: 12/19/2020 Document Reviewed: 12/19/2020 [employer] Patient Education 2022 [employer]. Follow Up Care 10/28/2023 17:26:09 With:Luis Armando FOWLER Address: [address] [facility] [address] [place] [address]- Business (1) [facility] [address] [place] [address]- Business (1) When:10/31/2023 20:24:50 Comments:Call for diagnosis based follow up With:Pepe Alcazar Address: [address] [place] [address]- Business (1) When:Within 3 Day(s) [facility] 09-28-2023 Evaluation + Plan note Extrac brandon from: Title:ED Note Author:Dandy Ashton DO Date :09/28/23 Cough (R05.9: Cough, unspeci fied) Orders: brompheniramine/dextromethorphan/PSE, 5 mL, Oral, QID for cough and congestion, 200 mL, Refill(s) 0, [facility]/pharmacy #[id number], 160, cm, 09/28/23 1:17:00 EDT, Height/Length Dosing, 97.9, kg, 09/28/23 1:17:00 EDT, Weight Dosing dexamethasone, 10 mg = 2.5 mL, Injection, Oral, Once, Stop date 09/28/23 2:17:00 EDT, STAT, Start date 09/28/23 2:17:00 EDT, 09/28/23 2:17:00 EDT Influenza A&B Ag Rapid COVID Antigen ([facility]) XR Chest 2 Views [facility]2024 Hospital Discharge instructions Patient Education 09/28/2023 02:27:06 [...] Follow these instructions at home: Medicines Take wtdq-jmb-oicxfqs and prescription medicines only as told by [...] of a condition that needs treatment. Take scsq-tpd-fsdfzto and prescription medicines only as told by [...] provider. Document Revised: 07/13/2019 Document Reviewed: 07/13/2019 [employer] Patient Education 2022 [employer]. Follow Up Care 09/28/2023 01:07:11 With:Pepe Alcazar Address: [address] [place] [phone]- Business (1) When:10/05/2023 only if needed [facility]03-13-2024 Hospital Discharge instructions Patient Education 09/17/2023 23:38:36 [...] help with your condition: Managing pain Take spen-cpk-qbwajiy and prescription medicines only as told by [...] provider. Document Revised: 11/22/2021 Document Reviewed: 11/22/2021 [employer] Patient Education 2022 [employer]. Follow Up Care 09/17/2023 20:39:37 With:Pepe Tannerdank Address: [address] [place], [place] [id number] Business (1) When:Within 3 Day(s) [facility]03-12-2024 Evaluation + Plan noteExtracted from: Title:ED Note [...] 09/17/23 20:50:00 EDT, Infuse over 61, minute(s) [facility]12-04-2023 Evaluation + Plan noteExtracted from: Title:Pain Managment [...] reevaluation to discuss options PAOLA score: 36% [facility]11-01-2023 NoteHNO ID: [id number] Author: Stalin Reyes MD Service: ? Author Type: Physician Type: Progress Notes Filed: 05/08/2023 3:40 PM Note Text: [facility]rology Follow up/ Established patient visit Individuals who were included in, or assisted with the encounter were: Mitesh Burgess Stalin Reyes MD Chief Complaint/Issues: Mitesh Burgess is a 43 year old R handed female w PMH chronic migraine stopped Emgality half year ago, anxiety, depression, skull mass, seen in the [facility] for General Neurology for: Dizziness, headache and tremor Most Recent Neurological Assessment and Plan: Last Filed Values Date of Most Recent Assessment and Plan 12/17/22 Specialty General Neurology Assessment Mitesh Burgess is a 42 year old R handed female w PMH chronic migraine stopped Emgality half year ago, anxiety, depression, skull mass, seen in the [facility] for General Neurology for: 1. Dizziness, headache [...] pain management. Her pain management is absent [facility]. She has been on Lyrica 300 [...] intact. Fundi with normal (more content not included)...[id number]* Patient Instructions* Stalin Reyes MD - [...] up in 6 months [facility] History of Present illness Narrative* Stalin Reyes MD - 05/08/2023 2:21 PM EDT Images from the original note were not included. [facility] Follow up/ Established patient visit Individuals who were included in, or assisted with the encounter were: Mitesh Ky Ben Reyes MD Chief Complaint/Issues: Mitesh Burgess is a 43 year old R handed female w PMH chronic migraine stopped Emgality half year ago, anxiety, depression, skull mass, seen in the [facility] for [facility] Neurology for: Dizziness, headache and tremor Most Recent Neurological Assessment and Plan: Last Filed Values Date of Most Recent Assessment and Plan 12/17/22 Specialty General Neurology Assessment Mitesh Burgess is a 42 year old R handed female w PMH chronic migraine stopped Emgality half year ago, anxiety, depression, skull mass, seen in the [facility] for General Neurology for: 1. Dizziness, headache [...] pain management. Her pain management is absent [facility]. She has been on Lyrica 300 [...] anxiety, depression, skull mass, seen in the [facility] for General Neurology for: 1. 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 Stalin Reyes MDThere is no data to display for this encounter [facility] Note [id number] Evaluation + Plan noteExtracted from: [...] Refill of Lyrica sent. PAOLA score: 42% [facility]09-08-2023 Evaluation + Plan noteExtracted from: Title:ED Note [...] EDT, 500 mL/hr, Infuse over 1, hour(s) [facility]09-08-2023 Hospital Discharge instructions Patient Education 03/15/2023 01:14:45 [...] Follow these instructions at home: Medicines Take wsmg-cdr-atcrzpd and prescription medicines only as told by your health care provider. Ask your health care provider if the medicine prescribed to you: ?Requires you to avoid driving or using heavy machinery. ?Can cause constipation. You may need to take these actions to prevent or treat constipation: ?Drink enough fluid to keep your urine pale yellow. ?Take jknj-jaa-rcmuhgn or prescription medicines. ?Eat foods that are [...] provider. Document Revised: 10/16/2019 Document Reviewed: 08/06/2019 [employer] Patient Education 2022 [employer] Follow Up Care 03/14/2023 21:27:36 With:Pepe Alcazar Address: [address] [place] [phone]- Business (1) When:03/18/2023 Comments:Return to the emergency room if your headache recurs or any new symptoms. [facility]08-01-2023 History of Present illness Narrative* Nathanael Ryan MD - 02/05/2023 10:09 AM EDT Images from the original note were not included. [facility] New Patient Consultation Referred by Stalin Reyes [id number] [facility] [id number] Diagnosis: skull hemangioma Subjective History of Present [...] DATE OF EXAM: Jan 24 2023 2:18PM [facility] 0295 - MRI BRAIN WO/W IVCON / PROCEDURE REASON: Brain tumor (HCC) * * * * Physician Interpretation * * * * EXAMINATION: MRI BRAIN WO/W IVCON HISTORY: Brain tumor (HCC) Per the electronic medical record: PMH chronic migraine stopped Emgality half year ago, anxiety, depression, skull mass, seen in the [facility] for General Neurology for: Dizziness, headache and [...] and is most compatible with intraosseous hemangioma. [facility] Transcribe Date/Time: Jan 24 2023 2:35P Dictated by : DONAL BURNS MD This examination was interpreted and the report reviewed and electronically signed by: DONAL BURNS MD on Jan 24 2023 2:42PM EST Data Review: Arnold Sanchez MD 10:26 AM 02/05/2023 [facility] Personal review of medical records: I reviewed the [facility] chart. Personal review of image, tracing or [...] which included preparing to see the patient, zexn-hk-oxjz patient care, completing clinical documentation, obtaining and/or reviewing separately obtained history, counseling and educating the patient/family/caregiver, independently interpretin g results (not separately reported), and care coordination (not separately reported). Nathanael Ryan MD February 05, 2023 10:46 AM [facility] Nurse Note* Ade Patten Ma - 02/05/2023 9:40 AM EDT Additional intake questions: Has the patient had fever, nausea, vomiting, diarrhea, constipation, fatigue for > 1 week? No Does the patient have a decreased appetite? No Does patient want to see a Counter Attendant? No (yes to any of above refer patient to schedulers for dietitian appointment) ) Does patient have any new or increased numbness or tingling of extremities? No Is patient interested in fertility information? No Does patient need any prescription refills? No Does patient have an advanced directive in place? No, Patient [facility] to [facility] Telephone encounter Note * Telephone Encounter - Gabriela Bill APRN.CNP - 01/25/2023 8:01 AM EDT Time Frame: Next available Provider: Any Neurosurgeon Referring: Stalin Reyes Dx: 2.7 cm enhancing lesion, likely hemangioma Gabriela Bill APRN.CNP [facility] Work Phone: 1(248) 541-939607-21-2023 Miscellaneous Notes* Telephone Encounter - Gabriela Bill APRN.CNP - 01/25/2023 8:01 AM EDT Time Frame: Next available Provider: Any Neurosurgeon Referring: Stalin Reyes Dx: 2.7 cm enhancing lesion, likely hemangioma Gabriela Bill APRN.CNP * Telephone Encounter - Gabriela Bill APRN.CNP - 12/26/2022 9:09 PM EDT Please obtain MRI report and any neurosurgical notes pertaining to diagnosis. Once received please re-triage. Gabriela Bill APRN.CNP * Telephone Encounter - Lori Webber - 12/26/2022 8:08 PM EDT 1. Epic: Who is requesting this appointment? Stalin Reyes MD 2. Epic: Please indicate the best contact information for our team to reach you with any questions/concerns we may have: 3. Epic: For this appointment, we will need to request a few records from you. This will help our triage team be able to select the best provider for your treatment: MRI-BRAIN 4. Have you had any surgeries pertaining to this appointment? No 5. Epic: What facility and/or [facility] 6. Epic: Please allow up to 48-72 hours for our triage team to review your records. Once they reviewed your records, we will be in contact with you. Was the patient made aware of the turnaround time?Yes 7. Epic: Our department offers virtual visits. Can I get you scheduled to be seen virtually?Yes 8. Sent to triage pool. (Waiting on approval) 9. What is your expectation? appointment documented [facility] History of Present illness Narrative* Ade Valderrama [...] 2023 TIME: 2:05 PM [facility] Tele[facility] encounter Note * Telephone Encounter - Gabriela Bill APRN.CNP - 12/26/2022 9:09 PM EDT Please obtain MRI report and any neurosurgical notes pertaining to diagnosis. Once received please re-triage. Gabriela Bill APRN.CNP [facility]06-21-2023 Telephone encounter Note* Telephone Encounter - Lori Webber - 12/26/2022 8:08 PM EDT 1. Epic: Who is requesting this appointment? Stalin Reyes MD 2. Epic: Please indicate the best contact information for our team to reach you with any questions/concerns we may have: 3. Epic: For this appointment, we will need to request a few records from you. This will help our triage team be able to select the best provider for your treatment: MRI-BRAIN 4. Have you had any surgeries pertaining to this appointment? No 5. Epic: What facility and/or hospital have you been seen at? [facility] 6. Epic: Please allow up to 48-72 hours for our triage team to review your records. Once they reviewed your records, we will be in contact with you. Was the patient made aware of the turnaround time?Yes 7. Epic: Our department offers virtual visits. Can I get you scheduled to be seen virtually?Yes 8. Sent to triage pool. (Waiting on approval) 9. What is your expectation? appointment [facility] Work Phone: [phone]) 248-166106-15-2023 Miscellaneous Notes* Telephone Encounter - Keesha Tirado RN - 12/20/2022 3:58 PM EDT Ambulatory Pharmacy Prior Authorization Note Provider Intervention Required?: No- Pharmacy completed on your behalf. Rx Plan: Medicaid [facility] ([facility]) Drug: Emgality 120MG/ML auto-injectors (migraine) Cover My Meds Garcia: [id number] Determination: Approved Prior Authorization/Case #: n/a Prior [...] refills. Prescriptions will now be processed through [facility] for determination of next steps. For questions relating to this submission, please contact [facility] at [phone] * Telephone Encounter - Keesha Tirado RN - 12/18/2022 4:55 PM EDT [facility] received prescription(s) for Emgality 120MG/ML auto-injectors (migraine). Benefits investigation was conducted, indicating that a prior authorization is required. PA was initiated and pending review through [employer]. All pertinent clinical information was submitted to insurance. CMM Garcia: [id number] Ordering Provider: MD Celestino Etienne Alisha, RN [facility] P: , F: documented in this encounterSouth[facility]06-12-2023 NoteHNO ID: [id number] Author: Stalin Reyes MD Service: ? Author Type: Physician Type: Progress Notes Filed: 12/17/2022 2:28 PM Note Text: [facility] Follow up/ Established patient visit Individuals who were included in, or assisted with the encounter were: Mitesh M Burgess Stalin Reyes MD Chief Complaint/Issues: Mitesh Burgess is a 42 year old R handed female w PMH chronic migraine stopped Emgality half year ago, anxiety, depression, skull mass, seen in the [facility] for: Dizziness, headache and [...] anxiety, depression, skull mass, seen in the [facility] for: 1. Dizziness, headache [...] and depression PLAN --W (more content not included)...[facility] [id number] Note Attestation signed by Eduardo Clemente MD [...] available for review today. MRI report from [facility] was reviewed stating the [...] WIN MD Orthopedic Surgery, PGY-1 Ortho Pager [phone] 10/13/22 1:38 [facility]Un[facility] Evaluation + Plan noteExtracted from: Title:Pain Managment Follow up Author:Ade Puente Date:10/01/22 Impression and Plan Patient is a 42-year-old female with a past medical history significant for lumbar neuritis, sacroiliitis, myalgia, left hip and knee pain. She also has some shoulder issues. She is seeing somebody at the [facility] for this. She has an appointment [...] Appointments Appointment Date:11/02/2022 01:00:00 PM Scheduled Provider:Ade Talamantes PA-C Location:[facility] [place] Appointment Type:Pain Management - Follow Up (FT) [facility]02-21-2023 Note Attestation signed by Eduardo Clemente MD [...] available for review today. MRI report from [facility] was reviewed stating the [...] Jim Carranza MD Orthopedic Surgery, PGY-5 Pager: [phone] 08/28/22 11:42 AM By using the attestations [...] and I was otherwise immediately [facility] Evaluation + Plan noteExtracted from: Title:Pain Managment [...] for reevaluation. Call clinic sooner if necessary. [facility]10-05-2022 Hospital Discharge instructions Patient Education 04/11/2022 17:19:39 [...] fried or sweet foods. General instructions Take xwce-fiz-njarhyv and prescription medicines only as told by [...] 06/14/2003 Document Revised: 07/20/2019 Document Reviewed: 07/03/2018 [employer] Patient Education 2020 [employer]. 04/11/2022 17:19:39 Neuropathic Pain Neuropathic Pain Neuropathic [...] treated? Treatment for neuropathic pain may change agent time. You may need to try different treatment options or a combination of treatments. Some options include: Treating the underlying cause of the neuropathy, such as diabetes, kidney disease, or vitamin deficiencies. Stopping medicines that can cause neuropathy, such as chemotherapy. Medicine to relieve pain. Medicines may include: ?Prescription or opzy-mot-jsqciva pain medicine. ?Anti-seizure medicine. ?Antidepressant medicines. ?Pain-relieving [...] Follow these instructions at home: Medicines Take hqfu-wyw-ydkziqm and prescription medicines only as told by [...] as fried or sweet foods. ?Take an hsch-lhs-zhfjrbf or prescription medicine for constipation. Lifestyle Have [...] 03/21/2005 Document Revised: 10/15/2019 Document Reviewed: 07/11/2018 [employer] Patient Education 2020 [employer]. Follow Up Care 04/11/2022 14:37:42 With:Chay Carter Address: [address] [place] [address] Business (1) When:04/12/2022 16:43:30 With:Jr Martines Address: [address] [place] [address]- Business (1) When:04/12/2022 16:43:28 With:Pepe Alcazar Address: [address] [place] [address], [place] [address]- Business (1) When:Within 3 Day(s) [facility]10-05-2022 Evaluation + Plan noteExtracted from: Title:ED Note [...] Appointments Appointment Date:05/18/2022 11:15:00 AM Scheduled Provider:Ade Talamantes PA-C Location[facility] Appointment Type:Pain Management - Follow Up (FT) [facility]10-03-2022 Evaluation + Plan noteExtracted from: Title:Pain management follow-up Author:Ade Talamantes PA-C Date:04/09/22 Impression and Plan Patient is [...] had some falls and went to the [facility] and has had a [...] Appointments Appointment Date:05/18/2022 11:15:00 AM Scheduled Provider:Ade Talamantes PA-C Location:FT.[facility] Appointment Type:Pain Management - Follow Up (FT) [facility]09-22-2022 NotePROCEDURE: XR SHOULDER LT 2V or > COMPARISON: None. HISTORY: Acute pain due to injury FINDINGS: BONES:No fracture, acute abnormality, or significant arthropathy. SOFT TISSUES:Negative. No visible soft tissue swelling. EFFUSION:None visible. OTHER: Negative. IMPRESSION: No acute abnormality Electronically authenticated by: EDUARDO CROSS Date: 2022-03-29 16:01[facility]08-05-2022 Evaluation + Plan noteExtracted from: Title:Pain management follow-up Author:Ade Talamantes PA-C Date:02/09/22 Impression and Plan Patient is [...] Appointments Appointment Date:03/26/2022 11:15:00 AM Scheduled Provider:Ade Talamantes PA-C Location:FT.[facility] Appointment Type:Pain Management - Follow Up (FT) [facility]05-13-2022 Evaluation + Plan noteExtracted from: Title:Pain management follow-up Author:Ade Talamantes PA-C Date:11/17/21 Impression and Plan Patient is [...] reevaluation. Call the clinic sooner if necessary. [facility] Future Appointments Appointment Date:11/17/2021 08:45:00 AM Scheduled Provider:Ade Talamantes PA-C Location:[facility] [place] Appointment Type:Pain Management - Follow Up ([facility]) [facility] Future Appointments Appointment Date:02/09/2022 10:00:00 AM Scheduled Provider:Ade Talamantes PA-C Location:[facility] [place] Appointment Type:Pain Management - Follow Up ([facility] Future Appointments Appointment Date:03/26/2022 11:15:00 AM Scheduled Provider:Ade Talamantes PA-C Location:[facility] [place] Appointment Type:Pain Management - Follow Up (FT) [facility] Future Appointments Appointment Date:03/26/2022 11:15:00 AM Scheduled Provider:Ade Talamantes PA-C Location:[facility] [place] Appointment Type:Pain Management - Follow Up (FT) Diagnostic Tests Pending * T3 Free 02/21/22 [facility] Future Appointments Appointment Date:04/30/2022 04:45:00 PM Scheduled Provider: Location:[facility] [place] Appointment Type:PT Eval (FT) Appointment Date:05/18/2022 11:15:00 AM Scheduled Provider:Ade Talamantes PA-C Location:[facility] [place] Appointment Type:Pain Management - Follow Up (FT) Diagnostic Tests Pending * Group A Strep by PCR [facility] note Future Appointments Appointment Date:08/14/2022 10:00:00 AM Scheduled Provider: Location:[facility] Appointment Type:Surgery FT Appointment Date:08/31/2022 08:45:00 AM Scheduled Provider:Ade Talamantes PA-C Location:[facility] [place] Appointment Type:Pain Management - Follow Up (FT) [facility] note Future Appointments Appointment Date:08/31/2022 08:45:00 AM Scheduled Provider:Ade Talamantes PA-C Location:[facility] [place] Appointment Type:Pain Management - Follow Up (FT) [facility] Future Appointments Appointment Date:10/01/2022 10:30:00 AM Scheduled Provider:Ade Talamantes PA-C Location:[facility] [place] Appointment Type:Pain Management - Follow Up (FT) [facility] note Future Appointments Appointment Date:06/10/2023 03:00:00 PM Scheduled Provider:Ade Talamantes PA-C Location:[facility] [place] Appointment Type:Pain Management - Follow Up (FT) [facility] note* Diagnosis 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 Brain tumor (HCC) Neoplasm of unspecified nature of brain documented in this encounter [facility] note* Diagnosis Radiculopathy, lumbar region- Primary Thoracic or lumbosacral neuritis or radiculitis, unspecified Intractable chronic migraine without aura and without status migrainosus Chronic migraine without aura, with intractable migraine, so stated, without mention of status migrainosus Essential tremor Essential and other specified forms of tremor Depression, unspecified depression type Anxiety Anxiety state, unspecified documented in this encounter [facility] note* Diagnosis Intractable chronic migraine without aura and without status migrainosus- Primary Chronic migraine without aura, with intractable migraine, so stated, without mention of status migrainosus Dizziness Dizziness and giddiness Depression, unspecified depression type Anxiety Anxiety state, unspecified Tardive dyskinesia Subacute dyskinesia due to drugs Drug-induced tremor Abnormal involuntary movements [facility] Diagnosis Skull lesion- Primary Disorder of bone and cartilage, unspecified documented in this encounter [facility] course Narrative No data available for this section [facility] No data available for this section [facility] No data available for this section [facility] Summary Purpose Family History No Family History [...] Directives Records FoundNo Advanced Directives Records Found Reason for Referral Specialty Diagnoses / Procedures Referred By Miguel Angel paulino Referred To Contact [facility] Diagnoses Dizziness Procedures CONSULT TO PHYSICAL THERAPY PHYSICAL THERAPY EVALUATION HIGH COMPLEX 45 MINS Man, MD Stalin [id number] [facility] [place] [address] [place] [address] Referral ID Status Reason Start Date Expiration Date Visits Requested Visits Authorized [id number] Pending Review Auto-Generat ed Referral 11/11/2023 11/10/2024 1 1 Additional Source Comments INFORMATION SOURCE (unrecogn ized section and content) DATE CREATED AUTHOR 12/26/2017 [facility] DATE CREATED AUTHOR AUTHOR'S ORGANIZ ATION 10/13/2022 [facility] DATE CREATED AUTHOR AUTHOR'S ORGANIZ ATION 10/15/2022 [facility] DATE CREATED AUTHOR AUTHOR'S ORGANIZ ATION 11/12/2023 [facility] DATE CREATED AUTHOR AUTHOR'S ORGANIZ ATION 12/10/[address] [facility] [facility] DATE CREATED AUTHOR AUTHOR'S ORGANIZ ATION 01/31/2024 [facility] DATE CREATED AUTHOR AUTHOR'S ORGANIZ ATION 03/03/2024 [facility] DATE CREATED AUTHOR AUTHOR'S ORGANIZ ATION 03/07/2024 [facility] Team (unrecognized sect ion and content) Die Cutter Operator Relationship Specialty Start Date End Date Pepe Alcazar MD PCP - General Family Medicine 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 Start Date End Date Pepe Alcazar MD PCP - General Family Medicine 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 Start Date End Date Pepe Alcazar MD PCP - General Family Medicine 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 Start Date End Date Pepe Alcazar MD PCP - General Family Medicine 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 Start Date End Date Pepe Alcazar MD PCP - General Family Medicine 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 Start Date End Date Pepe Alcazar MD PCP - General Family Medicine 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 Start Date End Date Pepe Alcazar MD PCP - General Family Medicine 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 Start Date End Date Pepe Alcazar MD PCP - General Family Medicine 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 Start Date End Date Pepe Alcazar MD PCP - General Family Medicine 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 Start Date End Date Pepe Alcazar MD PCP - General Family Medicine 05/10/15 Source Comments (unrecognize d section and content) In the event this informatio n is protected by the Federal Confidentiality of Alcohol and Drug Abuse Patient Records regulations: The Federal rules restrict any use of the information to criminally investigate or prosecute any alcohol or drug abuse patient.[facility] Center[facility] the event this information is protected by the Federal Confidentiality of Alcohol and Drug Abuse Patient Records regulations: The Federal rules restrict any use of the information to criminally investigate or prosecute any alcohol or drug abuse patient.[facility] CenterIn the event this information is protected by the Federal Confidentiality of Alcohol and Drug Abuse Patient Records regulations: The Federal rules restrict any use of the information to criminally investigate or prosecute any alcohol or drug abuse patient.[facility] CenterIn the event this information is protected by the Federal Confidentiality of Alcohol and Drug Abuse Patient Records regulations: The Federal rules restrict any use of the information to criminally investigate or prosecute any alcohol or drug abuse patient.[facility] CenterIn the event this information is protected by the Federal Confidentiality of Alcohol and Drug Abuse Patient Records regulations: The Federal rules restrict any use of the information to criminally investigate or prosecute any alcohol or drug abuse patient.[facility] CenterIn the event this information is protected by the Federal Confidentiality of Alcohol and Drug Abuse Patient Records regulations: The Federal rules restrict any use of the information to criminally investigate or prosecute any alcohol or drug abuse patient.[facility] CenterIn the event this information is protected by the Federal Confidentiality of Alcohol and Drug Abuse Patient Records regulations: The Federal rules restrict any use of the information to criminally investigate or prosecute any alcohol or drug abuse patient.[facility] CenterIn the event this information is protected by the Federal Confidentiality of Alcohol and Drug Abuse Patient Records regulations: The Federal rules restrict any use of the information to criminally investigate or prosecute any alcohol or drug abuse patient.[facility] CenterIn the event this information is protected by the Federal Confidentiality of Alcohol and Drug Abuse Patient Records regulations: The Federal rules restrict any use of the information to criminally investigate or prosecute any alcohol or drug abuse patient.[facility] CenterIn the event this information is protected by the Federal Confidentiality of Alcohol and Drug Abuse Patient Records regulations: The Federal rules restrict any use of the information to criminally investigate or prosecute any alcohol or drug abuse patient.[facility] Reason for Visit (unrecogniz ed section and content) Reason Comments Insurance Authorization Emgality 120MG/M L auto-injectors (migraine) Reason Comments Radiology MRI Reason Comments New Patient Specialty Diagnoses / Procedures Referred By Contac t Referred To Contact Neurosurgery Diagnoses Brain tumor (HCC) Procedures CONSULT TO NEUROSURGERY OFFICE/OUTPATIENT NEW HIGH MDM 60-74 MINUTES Stalin Reyes MD [address] [place] [address] Referral ID Status Reason Start Date Expiration Date V isits Requested Visits Authorized [id number] Closed PCP Requested Referral 12/17/2022 12/17/2023 1 1 Reason Comments Headache Reason Comments Triage Internal Reason Comments Refill Request Reason Comments Follow Up Chronic Migraine FOR RECORDS PERTAINING TO PATIENTS WHO ARE [...] BE BASED ON THE PRIMARY CLINICAL RECORDS. [employer] [facility]. provides no warranty or guarantee of the accuracy or completeness of information in this document.
[2024-03-10 10:24] LABS: Internal Control Within Normal Limits; SARS-CoV-2 Ag NEGATIVE (NEGATIVE)
== END 2024-03-10 09:53 | disposition home or self-care (01) ==
PROVIDERS: PCP Family Medicine; Visit Provider Family Medicine
DX: R09.81 Nasal congestion (principal)
CPT/HCPCS: 87811

== ENCOUNTER 2024-03-13 12:13 | Outpatient (OUT) | payer OTHER, SELFPAY ==
--- NOTE | 2024-03-13 12:19 | XR_ITS ---
The [address] [address] Patient Name: MITESH BURGESS MRN: [id number] date: 1980 Sex: F Assigned Patient Location: [facility] Current Patient Location: Accession/Order Number: [id number] Exam Date: 03/13/2024 12:23 Report Date: 03/14/2024 08:17 At the request of: PEPE ALCAZAR Procedure: XR hip BI w PEL 1V EXAMINATION: XR hip BI w PEL 1V HISTORY: Groin Pain R10.30 ; bilateral groin pain, left greater than right; no known injury COMPARISON: No relevant comparison available. FINDINGS: RIGHT FINDINGS: BONES: No significant arthropathy or acute abnormality. SOFT TISSUES: No visible soft tissue swelling. OTHER: Unremarkable sacroiliac joints, pelvis, and sacrum. LEFT FINDINGS: BONES: No significant arthropathy or acute abnormality. SOFT TISSUES: No visible soft tissue swelling. OTHER: Negative. XR/XR hip BI w PEL 1V IMPRESSION: RIGHT CONCLUSION: No acute abnormality or appreciable degenerative changes. LEFT CONCLUSION: No acute abnormality or appreciable degenerative changes. Electronically authenticated by: CHAY MENDOZA Date: 03/14/2024 08:17
--- OUTSIDE RECORDS SUMMARY | 2024-03-13 12:25 | XMS_ITS | CCD ---
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 strip Ql (U) Negative Normal Negative [facility] Comment on above: Performed By: #### 4 [id number] ####[facility] [address] [place] [address] pH (U) 5.5 [pH] Invalid Interpretation Code 5.0-9.0 [facility] Comment on above: Performed By: #### 4 [id number] ####[facility] [address] [place] [address] Protein Ql (U) Negative Normal Negative [facility] Comment on above: Performed By: #### 4 [id number] ####[address] [address] RBC Ql (U) 0-3 Normal 0-3 [facility] Comment on above: Performed By: #### 4 [id number] ####[address] [address] Specific gravity (U) [Rel density] 1.023 Invalid Interpretation Code 1.005-1.030 [facility] Comment on above: Performed By: #### 4 [id number] ####[address] [address] Urobilinogen (U) [Mass/Vol] Negative Normal Negative [facility] Comment on above: Performed By: #### 4 [id number] ####[facility] [address] [place] [address] WBC Auto (Urine sed) [#/Area] 0-5 Normal 0-5 [facility] Comment on above: Performed By: #### 4 [id number] ####[address] [address] Type of Urine collection method Clean Catch Normal [facility] Comment on above: Performed By: #### 4 [id number] ####[address] [address] URINALYSISOrdered By: SYSTEM SYSTEM on 10-28-2023 Bacteria [...] meet specific criteria set forth by [facility]. Epithelial cells.squamous Auto (Urine sed) [...] strip Ql (U) Negative Normal Negativemg/ dL [facility] UA Auto SS pH (U) 5.5 *NA* (10/28/23 7:59 PM) Invalid Interpretation Code 5.0 - 9.0 FT UA Auto SS Protein Ql (U) Negative Normal Negativemg/ dL FT UA Auto SS RBC Ql (U) 0-3 graded/HPF Normal 0-3graded/H PF FT UA Auto SS Specific gravity (U) [Rel density] 1.023 *NA* (10/28/23 7:59 PM) Invalid Interpretation Code 1.005 - 1.030 [facility] UA Auto SS Urobilinogen (U) [Mass/Vol] Negative Normal Negativemg/ dL [facility] UA Auto SS WBC Auto (Urine sed) [#/Area] 0-5 graded/HPF Normal 0-5graded/H PF FT UA Auto SS URINALYSISOrdered By: Daniel moreno on 10-28-2023 UA Spec Desc Clean Catch (10/28/23 7:59 PM) Normal [facility] UA Auto SS Work Phone: eGFRon 10-28-2023 eGFR 81 mL/min/1.73 m2 Normal >=59 [facility] Comment on above: Order Comment: Order added by Discern Expert. Performed By: #### 2 884549, 01693755, 7890446, 86032949, 5530362, 8566457 ####[facility] [address] [place] [address] Consent for Treatmenton 09-06 Consent for Treatment [id number]#1.00TIFF Normal [facility] Discharge Instructionson Discharge Instructions [id number]#1.00TIFF Normal [facility] ED Clinical Summaryon 2023 ED Clinical Summary (Inserted Image. Lucie ble to display) [address] [address] ED Clinical Summary Person Information Name: MITESH [facility]URGESS [facility] Age[facility] 43 Years : 1980 Sex: Female Language: Singaporean PCP: Pepe Alcazar MD Marital Status: Phone: [phone] Visit Id: Visit Reason: Sinus Pain/Congestion; Throat [...] 02:27:06 ADDRESS: [address] [place] [id number] PHYS DOC NOTES: MEDICAL INFORMATION: Prescriptions Given: New Medications [facility]/pharmacy #[id number], [address] [place] [id number], [phone] brompheniramine/dextromet horphan/PSE (Bromfed DM oral syrup) 5 [...] Follow up: With: Address: When: Pepe Alcazar [address] [place] [address], [facility] [place] [phone] Business (1) In 7 days 10/05/2023, only if needed DIAGNOSIS: Cough Normal [facility] ED Note-Physicianon 09-28-19 ED Note-Physician Basic [...] course of cefdinir. She was also taking jcol-etc-xhsbztz sinus medications. She states that her sinuses [...] and Complexity of Problems Differential Diagnosis: [] [facility] Data External documents reviewed: N/A My EKG [...] EDT Influenza A&B Ag Rapid COVID Antigen ([facility]) XR Chest 2 Views Disposition Plan Discharge Prescription List Prescriptions Bromfed DM oral syrup, 5 mL, Oral, QID, PRN Follow-up With When Contact Information Pepe Alcazar In 7 days 10/05/2023 EDT, only if needed [address] Business (1) Additional Instructions: Patient Education [...] tab(s) (more content not included)... Normal [facility] Comment on above: Result Comment: Elec [...] these instructions at home: Medicines ? Take dikz-kmv-nwtphmj and prescription medicines only as told by [...] a condition that needs treatment. ? Take egik-ijf-vauhfmb and prescription medicines only as told by [...] provider. Document Revised: 07/13/2019 Document Reviewed: 07/13/2019 [employer] Patient Education ? 2022 [employer] Normal [facility] ED Patient Summaryon 024 ED Patient Summary (Inserted Image. Lucie ble to display) [address] [address] Patient Discharge Instructions Person Information Name: MITESH BURGESS Age: 43 Years Arrival Date: 09/28/2023 01:06:05 Discharge Diagnosis: Cough Primary Care Physician: Pepe Alcazar MD Provider Information Primary Provider: Dandy Ashton DO Advanced Bellhop Service Captain:None The exam and treatment you received in the Emergency Department were for an urgent problem and are not intended as complete care. It is important that you follow up with a doctor, nurse practitioner, or physician?s surgical physician assistant for ongoing care. If your symptoms [...] Follow-up Instructions: With: Address: When: Pepe Hartdank [address] [place] [address] [place] [phone] Business (1) In 7 days 10/05/2023, only if needed In the event that this physician does not participate in your insurance network, please consult with your insurance company to find a nearby participating provider. Patient Education Materials: Hong Romo A MESSAGE TO ALL PATIENTS REGARDING OPIOIDS PRESCRIPTION OPIOIDS: WHAT YOU NEED TO KNOW Prescription opioids can be used to help relieve rhtpavhd-cl-jewxjv pain and are often prescribed following a [...] struggling with addiction, tell your health care provider and ask for guidance or call [employer]?S National Helpline at 6-463-321-HELP. v Source: [place] Department of (more content not included)... Normal [facility] Influenza A&B Agon 4 Influenzae A Ag Negative Normal Negative [facility] Comment on above: Performed By: #### 2 [id number], [id number] ####[facility] [address] [place] [address] Influenzae B Ag Negative Normal Negative [facility] Comment on above: Result Comment: Test sensitivity and specificity vary for age group, specimen type, antigen types, and prevalence of disease. Test results must be evaluated in conjunction with other clinical data available to the physician. Individuals who received nasally administered Influenza A vaccine may have positive test results up to 3 days after vaccination. Performed By: #### 2 [id number], [id number] ####[facility] [address] [place] [address] MICRO OTHER TESTSOrdered By: Hank Noel on 09-28-2023 Influenzae A Ag Negative (09/28/23 1:41 AM) Normal Negative [facility] Man Sero Influenzae B Ag Negative 1 (09/28/23 1:41 AM) Normal Negative [facility] Sero Comment on above: Interpretive Data: T [...] NEG Ctl Pass (09/28/23 1:41 AM) Normal [facility] Man Sero Rapid COV Int POS Ctl Pass (09/28/23 1:41 AM) Normal [facility] Sero SARS-CoV+SARS-CoV-2 (COVID-19) Ag IA.rapid Ql (Resp) Not Detected 2 (09/28/23 1:41 AM) Normal Not Detected [facility] Sero Comment on above: Interpretive Data: T he Memoir Veritor System for Rapid Detection of SARS-CoV-2 [...] sooner. Prescriptions/Work Noteson 0 09-28-2023 Prescriptions/Work Notes [id number]#1.00TIFF Normal [facility] Rapid COVID Antigen ([facility])on 09-28-2023 Rapid COV Int NEG Ctl Pass Normal [facility] Comment on above: Performed By: #### 2 [id number], [id number] ####[facility] [address] [place] [address] Rapid COV Int POS Ctl Pass Normal [facility] Comment on above: Performed By: #### 2 [id number], [id number] ####[facility] [address] [place] [address] SARS-CoV+SARS-CoV-2 (COVID-19) Ag IA.rapid Ql (Resp) Not detected Normal Not Detected [facility] Comment on above: Result Comment: The [...] or revoked sooner. Performed By: #### 2 [id number], [id number] ####[facility] [address] [place] [address] XR Chest 2 Viewson XR Chest 2 [...] = na DAP = na Normal [facility] Monitor Recordon 09-18-2023 Monitor Record [id number]#1.00TIFF Normal [facility] Consent for Treatmenton 09-05 Consent for Treatment [id number]#1.00TIFF Normal [facility] ED Clinical Summaryon 2023 ED Clinical Summary (Inserted Image. Lucie ble to display) [place] [id number] ED Clinical Summary Person Information Name: MITESH BURGESS [facility] Age: 43 Years : 1980 Sex: Female Language: Singaporean PCP: Pepe Alcazar MD Marital Status: Phone: [phone] Visit Id: Visit Reason: Anxiety; Headache; PANIC [...] 09/17/2023 23:38:36 09/17/2023 23:38:36 09/17/2023 23:38:36 ADDRESS: [address] [place] [address] [address] [id number] [facility] DOC NOTES: MEDICAL INFORMATION: Prescriptions Given: [...] Follow up: With: Address: When: Pepe Alcazar [address] [place] [address], [facility] [place] [phone] Business (1) In 3 days DIAGNOSIS: Headache Normal [facility] ED Note-Physicianon 09-17-19 ED Note-Physician Basic Information Time Seen: Dandy Ashton DO 09/17/2023 20:40 Chief Complaint Pt. presents to the ed with c/o headache and panick attack. Pt. took tyelonol around 1700, pt. 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 pt. is alert and oriented x 4 [...] and Complexity of Problems Differential Diagnosis: [] [facility] Data External documents reviewed: N/A My EKG [...] Information Pepe Alcazar In 3 days [address] [facility] [address] [place] [phone]- Business (1) Additional Instructions: Patient Education General [...] ( (more content not included)... Normal [facility] Comment on above: Result [...] with your condition: Managing pain ? Take bvot-qme-blbcajj and prescription medicines only as told by [...] Reviewed: 11/22/2021 Elsevier Patient Education ? 2022 [employer] Normal [facility] ED Patient Summaryon 024 ED Patient Summary (Inserted Image. Lucie ble to display) [address] [address] Patient Discharge Instructions Person Information Name: MITESH BURGESS Age: 43 Years Arrival Date: 09/17/2023 20:38:29 Discharge Diagnosis: Headache Primary Care Physician: Pepe Alcazar MD Provider Information Primary Provider: Dandy Ashton DO Advanced [employer] Service Captain:None The exam and treatment you received in the Emergency Department were for an urgent problem and are not intended as complete care. It is important that you follow up with a doctor, nurse practitioner, or physician?s surgical physician assistant for ongoing care. If your symptoms [...] Follow-up Instructions: With: Address: When: Pepe Alcazar [address] [place] [address], [place] [address] Business (1) In 3 days In the event that this physician does not participate in your insurance network, please consult with your insurance company to find a nearby participating provider. Patient Education Materials: General Headache Without Cause A MESSAGE TO ALL PATIENTS REGARDING OPIOIDS PRESCRIPTION OPIOIDS: WHAT YOU NEED TO KNOW Prescription opioids can be used to help relieve evwgcxst-na-xgbljz pain and are often prescribed following a [...] struggling with addiction, tell your health care provider and ask for guidance or call [facility]S National Helpline at 1-389-099-MONA. v Source: Department of [facility] (more content not included)... Normal [facility] Monitor Recordon 09-17-2023 Monitor Record [id number]#1.00TIFF Normal [facility] Nonvisit Note - PTon 024 Nonvisit Note - PT Patient cancelled to day's PT session. 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 cxl last two apts. Normal [facility] Nonvisit Note - PTon 024 Nonvisit Note - PT Patient cancelled to day's session, no reason given to ROUSTABOUT PUSHER. Normal [facility] Nonvisit Note - PTon 024 Nonvisit Note - PT Pt. cancelled PT appointment on 08/08/23. States she twisted wrong and is in a lot of pain. Next appointment confirmed. Normal [facility] Nonvisit Note - PTon 024 Nonvisit Note - PT Patient cancelled to day's PT appointment, no reason given to ROUSTABOUT PUSHER. [facility] PT - Orderson 08-02-2023 PT - Orders [id number]#1.00TIFF Normal [facility] Insurance Correspondenceon 0 07-30-2023 Insurance Correspondence caresonellie- [facility] [place] Reference #: [id number] approved for 72 units of PT - DOS 07/30/2023-10/04/2023 CPT [id number],03678,13391,67388,9 7032,[id number] Reference #: [id number] Description: Outpatient Elective Place Of Service: [address] On [facility] Submitting Provider: [facility] Requesting/Ordering Provider: [facility], [facility] Servicing/Rendering Provider: [facility], [facility] Facility: Member Information Member Name: Mitesh Patel Id: [id number] Date: 1980 Gender: Female Service Event Diagnosis Code: M54.16 Radiculopathy, lumbar region Procedure: PT - Physical Therapy, Outpatient Line #1 Requested Received Date: 07/30/2023 12:17:22 PM Requested Units: 72 Start Date of Service: 07/30/2023 Authorized Units: 72 End Date of Service: 10/04/2023 Status: Approved Service Event Diagnosis Code: M54.16 Radiculopathy, lumbar region Procedure: 17186 Therapeutic procedure, 1 or more areas, each 15 minutes; aquatic therapy with therapeutic exercises Line #1 Requested Received Date: 07/30/2023 12:17:22 PM Requested Units: 72 Start Date of Service: 07/30/2023 Authorized Units: 72 End Date of Service: 10/04/2023 Status: Approved Service Event Diagnosis Code: M54.16 Radiculopathy, lumbar region Procedure: 36907 Therapeutic procedure, 1 or more areas, each 15 minutes; gait training (includes stair climbing) Line #1 Requested Received Date: 07/30/2023 12:17:22 PM Requested Units: 72 Start Date of Service: 07/30/2023 Authorized Units: 72 End Date of Service: 10/04/2023 Status: Approved Service Event Diagnosis Code: M54.16 Radiculopathy, lumbar region Procedure: 45180 Manual therapy techniques (eg, mobilization/ manipulation, manual lymphatic drainage, manual traction), 1 or more regions, each 15 minutes Line #1 Requested Received Date: 07/30/2023 12:17:22 PM Requested Units: 72 Start Date of Service: 07/30/2023 Authorized Units: 72 End Date of Service: 10/04/2023 Status: Approved Service Event Diagnosis Code: M54.16 Radiculopathy, lumbar region Procedure: 50819 Application of a modality to 1 or more areas; traction, mechanical Line #1 Requested Received Date: 07/30/2023 12:17:22 PM Requested Units: 72 Start Date of Service: 07/30/2023 Authorized Units: 72 End Date of Service: 10/04/2023 Status: Approved Service Event Diagnosis Code: M54.16 Radiculopathy, lumbar region Procedure: 69434 Application of a modality to 1 or more areas; ultrasound, each 15 minutes Line #1 Requested Received Date: 07/30/2023 12:17:22 PM Requested Units: 72 Start Date of Service: 07/30/2023 Authorized Units: 72 End Date of Service: 10/04/2023 Status: Approved Service Event Diagnosis Code: M54.16 Radiculopathy, lumbar region Procedure: 72118 Application of a modality to 1 or more areas; electrical stimulation (manual), each 15 minutes Line #1 Requested Received Date: 07/30/2023 12:17:22 PM Requested Units: 72 Start Date of Service: 07/30/2023 Authorized Units: 72 End Date of Service: 10/04/2023 Status: Approved Service Event Diagnosis Code: M54.16 Radiculopathy, lumbar region Procedure: 58811 Therapeutic procedure, 1 or more areas, each 15 minutes; therapeutic exercises to develop strength and endurance, range of motion and flexibility Line #1 Requested Received Date: 07/30/2023 12:17:22 PM Requested Units: 72 Start Date of Service: 07/30/2023 Authorized Units: 72 End Date of Service: 10/04/2023 Status: Approved [employer] CAREERS Invalid Interpretation Code Arach[employer] [facility] Consent for Treatmenton 07-09 Consent for Treatment [id number]#1.00TIFF Normal [facility] PT - Assessmentson PT - Assessments [id number]#1.00TIFF [facility] PT - Consentson 07-29-2023 PT - Consents [id number]#1.00TIFF [facility] PT - Orderson 07-29-2023 PT - Orders [id number]#1.00TIFF [facility] Nonvisit Note - PTon 024 Nonvisit Note - PT chart reviewed with eval prepped for scheduled eval. [facility] Nonvisit Note - PTon 023 Nonvisit Note - PT chart reviewed with eval prepped for scheduled eval. [facility] Orders Officeon 06-21-2023 Orders Office [id number]#1.00TIFF [facility] Consent for Treatmenton Consent for Treatment [id number]#1.00TIFF [facility] Consultation Noteon 06-10-20 Consultation Note Patient: MITESH [...] BID, # 60 cap(s), Refills(s) 1, Pharmacy: [facility]/pharmacy #[id number], 161, cm, 06/10/23 15:18:00 EST, Height/Length Dosing, 95.2, kg, 04/19/23 8:29:00 EDT, Weight Dosing albuterol HFA 90 mcg/inh MDI: 2 puff(s), Inhalation, QID Shortness of breath or wheezing, 1 EA, Refill(s) 0, qid and prn sob/wheezing, [facility]/pharmacy #[id number], 160, cm, 04/27/20 22:06:00 EDT, Height/Length Dosing, 98, kg, 04/27/20 22:06:00 EDT, Weight Dosing methocarbamol 500 mg Tab: 500 mg = 1 tab(s), Oral, TID, PRN Spasm, X 30 day(s), # 90 tab(s), Refills(s) 2, Pharmacy: [facility]/pharmacy #[id number], 161, cm, 06/10/23 15:18:00 EST, [...] cyst of lumbar spine / SNOMED CT 0983879208 / Confirmed Neuropathy / SNOMED CT 4378828285 / Confirmed Ascending aorta dilation / SNOMED CT 963526858 / Confirmed Anxiety / SNOMED CT 32281546 / Confirmed Bipolar disorder / SNOMED CT 04488894 / Confirmed Labral tear of shoulder / SNOMED CT 416595918 / Confirmed Resolved: At risk for falls / SNOMED CT 004150249 Problem added when Risk for Falls Careplan was initiated. Resolved due to patient discharge. Resolved: Migraine / SNOMED CT 00306399 Resolved: Seasonal allergies / SNOMED CT [id number]-3 [id number] Objective Vital Signs 06/10/2023 15:08 EST Peripheral Pulse Rate 76 bpm Respiratory Rate 18 br/min Systolic Blood Pressure 117 mmHg Diastolic Blood Pressure 69 mmHg Mean Arterial Pressure, Cuff 85 mmHg General: Alert and oriented, No acute distress. Eye: Normal conjunctiva. HENT: Normocephalic, Normal hearing. Cardiovascular: No edema. Musculoskeletal Normal range of motion. Normal strength. 5/5 lower extremity strength Integumentary: Warm, Dry, [place]. Injection site well-healed Neurologic: Alert, Oriented. Psychiatric: Cooperative, Appropriate mood & affect. Imp (more content not included)... [facility] Comment on above: Result Comment: Elec tronically Signed By: Ade Talamantes PA-C\.br\Date and Time Signed: 06/10/23 15:27 EST\.br\Electronically Co-Signed By: Hai JAY, Boy Wilson\.br\Date and Time Co-Signed: 06/13/23 10:59 EST Office/Clinic Note-Physician on 06-10-2023 Office/Clinic Note-Physician [id number]#1.00TIF F [facility] Patient Correspondenceon Patient Correspondence [id number]#1.00TIF F [facility] Patient Correspondence [id number]#1.00TIF F [facility] Patient History Officeon Patient History Office [id number]#1.00TIF F [facility] CNOVon 05-08-2023 CNOV Office Visit (NEADFV ) ----- MITESH BURGESS ([id number]) 1980 F Date Time Provider Department 05/08/23 2:30 PM STALIN REYES During your visit today, we recorded the following information about you: Pulse Blood pressure Weight Height 67/minute 111/66 97.2 kg 1.6 m Stalin Reyes MD 05/08/2023 3:40 PM Signed [facility] General Neurology Follow up/ Established patient visit Individuals who were included in, or assisted with the encounter were: Mitesh Burgess Stalin Reyes MD Chief Complaint/Issues: Mitesh Burgess is a 43 year old R handed female w [facility] chronic migraine stopped Emgality half year ago, anxiety, depression, skull mass, seen in the [facility] for: Dizziness, headache and tremor Most Recent Neurological Assessment and Plan: Last Filed Values Date of Most Recent Assessment and Plan 12/17/22 Specialty General Neurology Assessment Mitesh Burgess is a 42 year old R handed female w H chronic migraine stopped Emgality half year ago, anxiety, depression, skull mass, seen in the [facility] for: 1. [...] Her pain management is absent [facility]. She has been on Lyrica 300 mg [...] no acute (more content not included)... Normal [facility] Consent for Procedure/Surger yon 05-07-2023 Consent for Procedure/Surgery [id number]#1.00TIFF [facility] Consent for Treatmenton 04-09 Consent for Treatment [id number]#1.00TIFF [facility] Discharge Instructionson Discharge Instructions [id number]#1.00TIFF [facility] IntraOperative Documentson 1 IntraOperative Documents [id number]#1.00TIFF [facility] Main OR Intraoperative Recor don 05-07-2023 Main OR Intraoperative Record IntraOp Document Type FTPM Summary Primary Physician: Boy Valles MD Finalized Date/Time: 05/07/23 09:17:26 Pt. Name: MITESH BURGESS/Sex: 1980 Female Med Rec #: [id number] Physician: Boy Valles MD Financial #: [id number] Pt. Type: P Room/Bed: / Admit/Disch: 05/07/23 [...] Brandi Samuel Role Performed Surgeon - Primary Computer Security Manager - Primary Scrub - Primary Time In 05/07/23 09:11:00 05/07/23 09:11:00 05/07/23 09:11:00 Time Out 05/07/23 09:18:00 05/07/23 09:18:00 05/07/23 09:18:00 Procedure TRANSFORAMINAL EPIDURAL TRANSFORAMINAL EPIDURAL TRANSFORAMINAL EPIDURAL STEROID INJECTIO(Left) STEROID INJECTIO(Left) STEROID INJECTIO(Left) Comments Last Modified By: Benjamín DOUGLAS, Heaven Butts RN, Heaven Arguello RN 05/07/23 09:17:10 05/07/23 09:17:10 05/07/23 09:17:10 Entry 4 Case Attendee Nish Walker Role Performed Facilities Specialist Time In 05/07/23 09:11:00 Time Out 05/07/23 [...] and tissue Entry 1 Skin Integrity Intact, [place], Warm, and Skin Abnormality No Dry Outcomes [...] Check (more content not included)... Normal [facility] Main OR Preoperative Recordo n 05-07-2023 Main OR Preoperative Record Holding Area Document Type FTPM Summary Primary Physician: Boy Valles MD Finalized Date/Time: 05/07/23 08:11:41 Pt. Name: DANIEL BURGESSKIKI Bee/Sex: 1980 Female Med Rec #: [id number] Physician: Boy Valles MD Financial #: [id number] Pt. Type: P Room/Bed: / Admit/Disch: 05/07/23 [...] Gaby Ambrocio RN 05/07/23 08:11 Normal [facility] Operative Reporton Operative Report Patient: MITESH BURGESS [...] Respiratory Rate 16 br/min . Normal [facility] Comment on above: Result Comment: Elec tronically Signed By: Hai JAY, Boy Wilson\.br\Date and Time Signed: 05/07/23 09:17 EDT Patient Correspondenceon Patient Correspondence [id number]#1.00TIFF Normal [facility] Insurance Correspondence Off iceon 04-23-2023 Insurance Correspondence Office [id number]#2.00TIFF Normal [facility] Consent for Treatmenton 04-07 Consent for Treatment [id number]#1.00TIFF Normal [facility] Consultation Noteon 04-19-20 Consultation Note Patient: [...] EA, Refill(s) 0, qid and prn sob/wheezing, [facility]/pharmacy #[id number], 160, cm, 04/27/20 22:06:00 EDT, Height/Length Dosing, 98, kg, 04/27/20 22:06:00 EDT, Weight Dosing off work: off work, See Instructions, 1 EA, 0, Patient had a procedure with our services. She should be excused from work for 10/30/21 and 10/31/21, Supply pregabalin 225 mg oral capsule: 225 mg = 1 cap(s), Oral, BID, # 60 cap(s), Refills(s) 2, Pharmacy: [facility]/pharmacy #[id number], 158, cm, 08/31/22 9:15:00 EST, Height/Length Dosing, 91.6, kg, 05/18/22 11:25:00 EST, Weight Dosing pregabalin 300 mg Cap: 300 mg = 1 cap(s), Oral, BID, # 60 cap(s), Refills(s) 1, Pharmacy: [facility]/pharmacy #[id number], 158, cm, 10/01/22 10:45:00 EDT, [...] cyst of lumbar spine / SNOMED CT 1884558901 / Confirmed Neuropathy / SNOMED CT 1066414165 / Confirmed Ascending aorta dilation / SNOMED CT 738492547 / Confirmed Anxiety / SNOMED CT 68177548 / Confirmed Bipolar disorder / SNOMED CT 25748594 / Confirmed Labral tear of shoulder / SNOMED CT 574729235 / Confirmed Resolved: At risk for falls / SNOMED CT 629270742 Problem added when Risk for Falls Careplan was initiated. Resolved due to patient discharge. Resolved: Migraine / SNOMED CT 40558791 Resolved: Seasonal allergies / SNOMED CT [id number]-[id number] Objective Vital Signs 04/19/2023 8:17 EDT Peripheral [...] seated straight leg raise Integumentary: Warm, Dry, [place]. Neurologic: Alert, Oriented. Psychi (more content not included)... Normal [facility] Comment on above: Result Comment: Elec tronically Signed By: Ade Talamantes PA-C\.br\Date and Time Signed: 04/19/23 08:55 EDT\.br\Electronically Co-Signed By: Hai JAY, Boy Wilson\.br\Date and Time Co-Signed: 04/23/23 12:36 EDT Office/Clinic Note-Physician on 04-19-2023 Office/Clinic Note-Physician [id number]#1.00TIFF Normal [facility] Patient Correspondenceon Patient Correspondence [id number]#1.00TIFF Normal [facility] Patient Correspondence [id number]#1.00TIFF Normal [facility] Patient History Officeon Patient History Office [id number]#1.00TIFF [facility] Discharge Instructionson Discharge Instructions [id number]#1.00CD:1 27 Normal [facility] ED Clinical Summaryon 2022 ED Clinical Summary (Inserted Image. Lucie ble to display) [address] [address] ED Clinical Summary Person Information Name: MITESH BURGESS [facility] Age: 42 Years : 1980 Sex: Female Language: Singaporean PCP: Pepe Alcazar MD Marital Status: Phone: [phone] Visit Id: Visit Reason: Headache; Nausea; HEADACHE [...] 01:14:43 03/15/2023 01:14:43 03/15/2023 01:14:43 ADDRESS: [address] [place] [id number] PHYS DOC NOTES: MEDICAL INFORMATION: Prescriptions Given: [...] Follow up: With: Address: When: Pepe Alcazar [facility] [facility], [address] [place] [id number] Business (1) In 3 days 03/18/2023 Comments: Return to the emergency room if your headache recurs or any new symptoms. DIAGNOSIS: 1:Migraine headache Normal [facility] ED Note-Physicianon 03-15-20 ED Note-Physician Basic [...] and Complexity of Problems Differential Diagnosis: [] [facility] Data External documents reviewed: [] My EKG [...] Alcazar In 3 days 03/18/2023 EDT [address] [address] [place] [id number]- Business (1) Additional Instructions: Return to the [...] (12/07/2003), (more content not included)... Normal [facility] Comment on above: Result Comment: Elec tronically Signed By: Hailey Triana, hCandni Valente\.br\Date and Time Signed: 03/15/23 03:33 EDT [...] these instructions at home: Medicines ? Take tytt-xzv-owbmuib and prescription medicines only as told by your health care provider. ? Ask your health care provider if the medicine prescribed to you: ? Requires you to avoid driving or using heavy machinery. ? Can cause constipation. You may need to take these actions to prevent or treat constipation: ? Drink enough fluid to keep your urine pale yellow. ? Take vics-xam-uytwcfw or prescription medicines. ? Eat foods that [...] or (more content not included)... Normal [facility] ED Patient Summaryon 023 ED Patient Summary (Inserted Image. Lucie ble to display) [place] [id number] Patient Discharge Instructions Person Information Name: MITESH BURGESS Age: 42 Years Arrival Date: 03/14/2023 21:26:36 Discharge Diagnosis: 1:Migraine headache Primary Care Physician: Pepe Alcazar MD Provider Information Primary Provider: Chandni Hart M.D. Advanced Bellhop Service Captain:None The exam and treatment you received in the Emergency Department were for an urgent problem and are not intended as complete care. It is important that you follow up with a doctor, nurse practitioner, or physician?s surgical physician assistant for ongoing care. If your symptoms [...] Follow-up Instructions: With: Address: When: Pepe Alcazar [address] [place] [address], [facility] [address] [place] [phone] Business (1) In 3 days 03/18/2023 Comments: [...] opioids can be used to help relieve asikicoe-cw-lrpypt pain and are often prescribed following a [...] struggling with addiction, tell your health care provider and ask for stacie (more content not included)... [facility] Prescriptions/Work Noteson 0 03-15-2023 Prescriptions/Work Notes [id number]#1.00CD:1 27 [facility] Consent for Treatmenton Consent for Treatment [id number]#1.00CD:12 7 Elissa [facility] CNOVhipolito 12-17-2022 CNOV Office Visit (NEADFV ) ----- MITESH BURGESS ([id number]) 1980 F Date Time Provider Department 12/17/22 1:30 PM STALIN REYES During your visit today, we recorded the following information about you: Pulse Blood pressure Weight Height 71/minute 103/72 101.2 kg 1.6 ky Reyes MD 12/17/2022 2:28 PM Signed [facility] General Neurology Follow up/ Established patient visit Individuals who were included in, or assisted with the encounter were: Mitesh Reyes MD Chief Complaint/Issues: Mitesh Burgess is a 42 year old R handed female w H chronic migraine stopped Emgality half year ago, anxiety, depression, skull mass, seen in the [facility] for: Dizziness, [...] anxiety, depression, skull mass, seen in the [facility] for: 1. [...] without contra (more content not included)... Normal [facility] Office Visiton 10-13-2022 Follow-up visit [id number] Georgia Burgess 1980 F Date Provider Department Center 10/13/2022 EDUARDO BLAND MP ORTHO MPORTHO No family history on file Level of Service:34121 AL OFFICE/OUTPATIENT ESTABLISHED MOD MDM 30-39 MIN (57,GC) Reason for Visit and Comments: Follow-up [629934] Normal [facility] CHEMISTRYOrdered By: SYSTEM SYSTEM on 09-20-2022 [...] FT HemeAutoSS Office Visiton 08-28-2022 Follow-up visit [id number] Georgia Burgess 1980 F Date Provider Department Center 08/28/2022 EDUARDO BLAND ORTHO MPORTHO No family history on file Level of Service:80245 AL OFFICE/OUTPATIENT NEW LOW MDM 30-44 MINUTES (25) Reason for Visit and Comments: Pain [136] Normal [facility] US KIDNEYSon 08-27-2022 US KIDNEYS Begin [...] kidneys and bladder was performed by the maintenance supervisor mechanical. Pizza Maker static images are submitted for review. FINDINGS: [...] renal calculi. 3. No hydronephrosis. Normal [facility]on SARS-CoV-2 (COVID-19) RNA JAYNE+probe Ql (Unsp spec) Not detected Normal NOT DETECTED [facility] Comment on above: Result Comment: This test is not yet approved or cleared by the [place] FDA. When there are no FDA-approved or cleared tests available, and other criteria are met, FDA can make tests available under an emergency access mechanism called an Emergency Use Authorization (EUA). The EUA for this test is supported by the Card Fixer of Health and Human Service's (HHS's) declaration [...] L IPID, URIC, CMP, T7, TSH #### [facility] [address] [place] [address] Dr. Alejandra Crystal INFLUENZA A AND B AGon 08-16 INFLUANEGH SEE BELOW Normal [facility] Comment on above: Result Comment: Nega tive for Flu A protein angiten. Infection due to Flu A cannot be ruled out. Flu A angiten in the sample may be below the detection limit of the test. Performed By: #### O BSCRN #### [facility] [address] [place] [address] Dr. Alejandra Crystal INFLUBNEGH SEE BELOW Normal [facility] Comment on above: Result Comment: Nega tive for Flu B protein antigen. Infection due to Flu B cannot be ruled out. Flu B antigen in the sample may be below the detection limit of the test. Performed By: #### O BSCRN #### [facility] [address] [place] [address] Dr. Alejandra Crystal INFLUENZA A AG Negative Normal NEGATIVE SEE COMMENT [facility] Comment on above: Performed By: #### O BSCRN #### [facility] [address] [place] [address] Dr. Alejandra Crystal INFLUENZA B AG Negative Normal NEGATIVE SEE COMMENT [facility] Comment on above: Performed By: #### O BSCRN #### [facility] [address] [place] [address] Dr. Alejandra Crystal MRI SHOULDER LT WO [...] by: CHAY MENDOZA Date: 2022-08-13 15:18 Normal [facility] XR ARTHRO SHOULDER LTon 02-0 XR [...] CHAY MENDOZA Date: 2022-08-13 15:07 Normal [facility] Cov[facility]-19 PCR ([facility]on 05-10 SARS-CoV-2 (COVID-19) RNA JAYNE+probe Ql (Unsp spec) Not detected Normal NOT DETECTED [facility] Comment on above: Result Comment: This test is not yet approved or cleared by the [place] FDA. When there are no FDA-approved or cleared tests available, and other criteria are met, FDA can make tests available under an emergency access mechanism called an Emergency Use Authorization (EUA). The EUA for this test is supported by the Card Fixer of Health and Human Service's (HHS's) declaration [...] L IPID, URIC, CMP, T7, TSH #### [facility] [address] [place] [address] Dr. Alejandra Crystal INFLUENZA A AND B AGon 06-06 INFLUANEGH SEE BELOW Normal [facility] Comment on above: Result Comment: Nega tive for Flu A protein angiten. Infection due to Flu A cannot be ruled out. Flu A angiten in the sample may be below the detection limit of the test. Performed By: #### I NFLUAB #### [facility] [address] [place] [address] Dr. Alejandra Crystal INFLUBNEGH SEE BELOW Normal [facility] Comment on above: Result Comment: Nega tive for Flu B protein antigen. Infection due to Flu B cannot be ruled out. Flu B antigen in the sample may be below the detection limit of the test. Performed By: #### I NFLUAB #### [facility] [address] [place] [address] Dr. Alejandra Crystal INFLUENZA A AG Negative Normal NEGATIVE SEE COMMENT [facility] Comment on above: Performed By: #### I NFLUAB #### [facility] [address] [place] [address] Dr. Alejandra Crystal INFLUENZA B AG Negative Normal NEGATIVE SEE COMMENT [facility] Comment on above: Performed By: #### I NFLUAB #### [facility] [address] [place] [address] Dr. Alejandra Crystal INTERNAL CONTROLS Within Normal Limits Normal Wi thin Normal Limits [facility] Comment on above: Performed By: #### I NFLUAB #### [facility] [address] [place] [address] Dr. Alejandra Crystal MRI ABDOMEN WO W [...] CHAY MENDOZA Date: 2022-05-31 09:57 Normal [facility] INSULINon 05-30-2022 Insulin 23.8 uIU/mL Normal 2.6-24.9 [facility] Comment on above: Performed By: #### I NSULIN #### [facility] [address] [place] [address] Dr. Alejandra Crsytal CBC AUTO DIFFon 05-29-2022 BASO # 0.0 103/ul Normal 0.0-0.1 [facility] Comment on above: Performed By: #### C BC #### [facility] [address] [place] [address] Dr. Alejandra Crystal Basophils/100 WBC (Bld) 0.6 % Normal 0.2-2.0 [facility] Comment on above: Performed By: #### C BC #### [facility] [address] [place] [address] Dr. Alejandra Crystal EO # 0.1 103/ul Normal 0.0-0.7 [facility] Comment on above: Performed By: #### C BC #### [facility] [address] [place] [address] Dr. Alejandra Crystal Eosinophils/100 WBC (Bld) 1.3 % Normal 0.9-7.0 [facility] Comment on above: Performed By: #### C BC #### [facility] [address] [place] [address] Dr. Alejandra Crystal Erythrocyte distribution width (RBC) [Ratio] 12.5 % Normal 11.0-15.0 [facility] Comment on above: Performed By: #### C BC #### [facility] [address] [place] [address] Dr. Alejandra Crystal Hematocrit (Bld) [Volume fraction] 41.2 % Normal 36.0-48.0 [facility] Comment on above: Performed By: #### C BC #### [facility] [address] [place] [address] Dr. Alejandra Crystal Hemoglobin (Bld) [Mass/Vol] 14.4 g/dL Normal 12.0-16.0 [facility] Comment on above: Performed By: #### C BC #### [facility] [address] [place] [address] Dr. Alejandra Crystal IG # 0.02 10e3/ul Normal 0.00-0.03 [facility] Comment on above: Performed By: #### C BC #### [facility] [address] [place] [address] Dr. Alejandra Crystal IG % 0.3 % Normal 0.0-0.5 [facility] Comment on above: Performed By: #### C BC #### [facility] [address] [place] [address] Dr. Alejandra Crystal LYMPH # 2.1 103/ul Normal 1.2-3.8 [facility] Comment on above: Performed By: #### C BC #### [facility] [address] [place] [address] Dr. Alejandra Crystal Lymphocytes/100 WBC (Bld) 32.5 % Normal 20.5-60.0 [facility] Comment on above: Performed By: #### C BC #### [facility] [address] [place] [address] Dr. Alejandra Crystal MANUAL DIFF REQ NO Normal [facility] Comment on above: Performed By: #### C BC #### [facility] [address] [place] [address] Dr. Alejandra Crystal MCH (RBC) [Entitic mass] 32.1 pg Normal 26.7-34.0 [facility] Comment on above: Performed By: #### C BC #### [facility] [address] [place] [address] Dr. Alejandra Crystal MCHC (RBC) [Mass/Vol] 35.0 g/dL Normal 29.9-35.2 [facility] Comment on above: Performed By: #### C BC #### [facility] [address] [place] [address] Dr. Alejandra Crystal MCV (RBC) [Entitic vol] 91.8 fL Normal 81.0-99.0 [facility] Comment on above: Performed By: #### C BC #### [facility] [address] [place] [address] Dr. Alejandra Crystal MONO # 0.6 103/ul Normal 0.3-0.8 [facility] Comment on above: Performed By: #### C BC #### [facility] [address] [place] [address] [address] Alejandra Crystal Monocytes/100 WBC (Bld) 8.6 % Normal 1.7-12.0 [facility] Comment on above: Performed By: #### C BC #### [facility] [address] [place] [address] Dr. Alejandra Crystal NEUT # 3.6 103/ul Normal 1.4-6.5 [facility] Comment on above: Performed By: #### C BC #### [facility] [address] [place] [address] Dr. Alejandra Crystal Neutrophils/100 WBC (Bld) 56.7 % Normal 43.0-75.0 [facility] Comment on above: Performed By: #### C BC #### [facility] [address] [place] [address] Dr. Alejandra Crystal Platelet mean volume (Bld) [Entitic vol] 9.4 fL Critically low 9.5-13.5 [facility] Comment on above: Performed By: #### C BC #### [facility] [address] [place] [address] Dr. Alejandra Crystal PLT 294 103/ul Normal 150-450 [facility] Comment on above: Performed By: #### C BC #### [facility] [address] [place] [address] Dr. Alejandra Crystal RBC 4.49 106/ul Normal 4.20-5.40 [facility] Comment on above: Performed By: #### C BC #### [facility] [address] [place] [address] Dr. Alejandra Crystal WBC 6.4 103/ul Normal 4.0-11.0 [facility] Comment on above: Performed By: #### C BC #### [facility] [address] [place] [address] Dr. Alejandra Crystal FREE THYROXINE INDEX T7on FTI 1.78 Normal 1.30-4.50 [facility] Comment on above: Performed By: #### L IPID, URIC, CMP, T7, TSH #### [facility] [address] [place] [address] Dr. Alejandra Crystal T3U 33.0 % Normal 30.0-39.0 [facility] Comment on above: Performed By: #### L IPID, URIC, CMP, T7, TSH #### [facility] [address] [place] [address] Dr. Alejandra Crystal T4 [Mass/Vol] 5.40 ug/dL Normal 4.80-13.90 The [facility] Comment on above: Performed By: #### L IPID, URIC, CMP, T7, TSH #### [facility] [address] [place] [address] Dr. Alejandra Crystal GLYCOHEMOGLOBIN A1Con 2021 ADA RECOMMENDATION SEE BELOW Normal [facility] Comment on above: Result Comment: ADA RECOMMENDED LIMIT 4.0 - 6.0 ADA THERAPEUTIC TARGET < 7.0 ACTION SUGGESTED > 7.0 Performed By: #### O BSCRN #### [facility] [address] [place] [address] Dr. Alejandra Crystal Glucose [Mass/Vol] 94 mg/dL Normal [facility] Comment on above: Performed By: #### O BSCRN #### [facility] [address] [place] [address] Dr. Alejandra Crystal HbA1c (Bld) [Mass fraction] 4.9 % Normal 4.5-6.2 [facility] Comment on above: Performed By: #### O BSCRN #### [facility] [address] [place] [address] Dr. Alejandra Crystal IRONon 05-29-2022 Iron [Mass/Vol] 74.0 ug/dL Normal 50.0-170.0 [facility] Comment on above: Performed By: #### I NFLUAB #### [facility] [address] [address] [address] Alejandra Crystal LIPID PROFILEon 05-29-2022 CHOL-HDL RATIO NORM SEE BELOW Normal [facility] Comment on above: Result Comment: 3.3 - 4.4 LOW RISK 4.4 - 7.1 AVERAGE RISK 7.1 - 11.0 MODERATE RISK >11.0 HIGH RISK Performed By: #### L IPID, URIC, CMP, T7, TSH #### [facility] [address] [address] [address] Alejandra Crystal Cholesterol [Mass/Vol] 127 mg/dL Normal <=200 [facility] Comment on above: Performed By: #### L IPID, URIC, CMP, T7, TSH #### [facility] [address] [place] [address] Dr. Alejandra Crystal Cholesterol in HDL [Mass/Vol] 33 mg/dL Critically low 40-60 [facility] Comment on above: Performed By: #### L IPID, URIC, CMP, T7, TSH #### [facility] [address] [address] [address] Alejandra Crystal Cholesterol in LDL [Mass/Vol] 60.4 mg/dL Normal [facility] Comment on above: Performed By: #### L IPID, URIC, CMP, T7, TSH #### [facility] [address] [address] [address] Alejandra Crystal Cholesterol.total/Cho lesterol in HDL [Mass ratio] 3.8 {ratio} Normal [facility] Comment on above: Performed By: #### L IPID, URIC, CMP, T7, TSH #### [facility] [address] [place] [address] Dr. Alejandra Crystal HDL NORMAL > or = 60 mg/dl - LO W CARDIOVASCULAR RISK <40 mg/dl - HIGH CARDIOVASCULAR RISK Normal [facility] Comment on above: Performed By: #### L IPID, URIC, CMP, T7, TSH #### [facility] [address] [place], [place] [id number] Dr. Alejandra Crystal LDL CALC NORMAL SEE BELOW Normal [facility] Comment on above: Result Comment: <100 mg/dl OPTIMAL 100 - 129 mg/dl NEAR OR ABOVE OPTIMAL 130 - 159 mg/dl BORDERLINE HIGH 160 - 189 mg/dl HIGH >190 mg/dl VERY HIGH Performed By: #### L IPID, URIC, CMP, T7, TSH #### [facility] [address] [address] [address] Aeljandra Crystal Triglyceride [Mass/Vol] 168 mg/dL Critically high <=150 [facility] Comment on above: Performed By: #### L IPID, URIC, CMP, T7, TSH #### [facility] [address] [place] [address] Dr. Alejandra Crystal VLDL CALC 33.6 mg/dL Normal [facility] Comment on above: Performed By: #### L IPID, URIC, CMP, T7, TSH #### [facility] [address] [place] [address] Dr. Alejandra Crystal PROF 14(COMP METB)on 022 Albumin [Mass/Vol] 3.8 g/dL Normal 3.4-5.0 [facility] Comment on above: Performed By: #### L IPID, URIC, CMP, T7, TSH #### [facility] [address] [place] [address] Dr. Alejandra Crystal Albumin/Globulin [Mass ratio] 1.2 {ratio} Normal [facility] Comment on above: Performed By: #### L IPID, URIC, CMP, T7, TSH #### [facility] [address] [place] [address] Dr. Alejandra Crystal ALP [Catalytic activity/Vol] 111 U/L Normal 46-116 [facility] Comment on above: Performed By: #### L IPID, URIC, CMP, T7, TSH #### [facility] [address] [place] [address] Dr. Alejandra Crystal ALT [Catalytic activity/Vol] 18 U/L Normal 14-59 [facility] Comment on above: Performed By: #### L IPID, URIC, CMP, T7, TSH #### [facility] [address] [place] [address] Dr. Alejandra Crystal Anion gap [Moles/Vol] 14.9 mmol/L Normal [facility] Comment on above: Performed By: #### L IPID, URIC, CMP, T7, TSH #### [facility] [address] [place] [address] Dr. Alejandra Crystal AST [Catalytic activity/Vol] 11 U/L Critically low 15-37 [facility] Comment on above: Performed By: #### L IPID, URIC, CMP, T7, TSH #### [facility] [address] [place] [address] Dr. Alejandra Crystal Bilirubin [Mass/Vol] 0.3 mg/dL Normal 0.2-1.0 [facility] Comment on above: Performed By: #### L IPID, URIC, CMP, T7, TSH #### [facility] [address] [place] [address] Dr. Alejandra Crystal Calcium [Mass/Vol] 8.9 mg/dL Normal 8.5-10.1 [facility] Comment on above: Performed By: #### L IPID, URIC, CMP, T7, TSH #### [facility] [address] [place] [address] Dr. Alejandra Crystal Chloride [Moles/Vol] 107 mmol/L Normal 98-107 [facility] Comment on above: Performed By: #### L IPID, URIC, CMP, T7, TSH #### [facility] [address] [place] [address] Dr. Alejandra Crystal CO2 [Moles/Vol] 22.3 mmol/L Normal 21.0-32.0 [facility] Comment on above: Performed By: #### L IPID, URIC, CMP, T7, TSH #### [facility] [address] [place] [address] Dr. Alejandra Crystal Creatinine [Mass/Vol] 0.82 mg/dL Normal 0.55-1.02 [facility] Comment on above: Performed By: #### L IPID, URIC, CMP, T7, TSH #### [facility] [address] [address] [address] Alejandra Crystal EGFR-AF ALGERIAN >60 Normal >=60 [facility] Comment on above: Performed By: #### L IPID, URIC, CMP, T7, TSH #### [facility] [address] [address] [address] Alejandra Crystal EGFR-NON AF ALGERIAN >60 Normal >=60 [facility] Comment on above: Performed By: #### L IPID, URIC, CMP, T7, TSH #### [facility] [address] [address] [address] Alejandra Crystal Globulin (S) [Mass/Vol] 3.3 g/dL Normal [facility] Comment on above: Performed By: #### L IPID, URIC, CMP, T7, TSH #### [facility] [address] [address] [address] Alejandra Crystal Glucose [Mass/Vol] 91 mg/dL Normal 74-106 [facility] Comment on above: Performed By: #### L IPID, URIC, CMP, T7, TSH #### [facility] [address] [address] [address] Alejandra Crystal Potassium [Moles/Vol] 4.2 mmol/L Normal 3.5-5.1 [facility] Comment on above: Performed By: #### L IPID, URIC, CMP, T7, TSH #### [facility] [address] [address] [address] Alejandra Crystal Protein [Mass/Vol] 7.1 g/dL Normal 6.4-8.2 [facility] Comment on above: Performed By: #### L IPID, URIC, CMP, T7, TSH #### [facility] [address] [address] [address] Alejandra Crystal Sodium [Moles/Vol] 140 mmol/L Normal 136-145 [facility] Comment on above: Performed By: #### L IPID, URIC, CMP, T7, TSH #### [facility] [address] [address] [address] Alejandra Crystal Urea nitrogen [Mass/Vol] 14.0 mg/dL Normal 7.0-18.0 [facility] Comment on above: Performed By: #### L IPID, URIC, CMP, T7, TSH #### [facility] [address] [address] [address] Alejandra Crystal Urea nitrogen/Creatinine [Mass ratio] 17.1 mg/mg Normal [facility] Comment on above: Performed By: #### L IPID, URIC, CMP, T7, TSH #### [facility] [address] [address] [address] Alejandra Crystal TSHon 05-29-2022 TSH 0.767 uIU/mL Normal 0.358-3.740 The [facility] Comment on above: Performed By: #### L IPID, URIC, CMP, T7, TSH #### [facility] [address] [place] [address] Dr. Alejandra Crystal URIC ACID SERUMon 05-29-2022 Urate [Mass/Vol] 3.4 mg/dL Normal 2.6-6.0 [facility] Comment on above: Performed By: #### L IPID, URIC, CMP, T7, TSH #### [facility] [address] [place] [address] Dr. Alejandra Crystal VITAMIN D 25 OHon 05-29-2022 VIT D 25-OH 16.2 ng/mL Normal [facility] Comment on above: Performed By: #### I NFLUAB #### [facility] [address] [place] [address] Dr. Alejandra Crystal VIT D RANGES SEE BELOW Normal [facility] Comment on above: Result Comment: <20 ng/mL Vit D deficient 20 - <30 ng/mL Vit D insufficient 30 - 100 ng/mL Vit D sufficient >100 ng/mL Potential Toxicity Performed By: #### I NFLUAB #### [facility] [address] [place] [address] Dr. Alejandra Crystal MRI BRAIN WO W [...] are clear. The flow voids of the [place] are visualized, implying that the [...] by: TEZ CUBA Date: 2022-05-17 23:20 Normal [facility] US SINGLE QUAD RT UPPERon US [...] LETY TAN Date: 2022-05-15 14:53 Normal [facility] COAGULATIONOrdered By: Nacho Mcguire [...] rate/Area] mL/min/1.73 m2 Normal >=59mL/min/ 1.73 m2 [facility] Chem S GFR/1.73 sq M.predicted among non-blacks MDRD (S/P/Bld) [Vol rate/Area] mL/min/1.73 m2 Normal >=59mL/min/ 1.73 m2 [facility] Chem S Glucose [Mass/Vol] 102 mg/dL Normal 55 - 199 mg/dL [facility] Remisol Potassium [Moles/Vol] 3.6 mmol/L Normal 3.5 - 5.3 mmol/L [facility] Remisol Sodium [Moles/Vol] 135 mmol/L Normal 135 - 145 mmol/L [facility] Remisol Urea nitrogen [Mass/Vol] 12 mg/dL Normal 5 - 21 mg/dL [facility] Remisol Urea nitrogen/Creatinine [Mass ratio] 13 mg/mg Normal 10 - 20 [facility] Remisol CHEMISTRYOrdered By: Lab ROP User on 04-11-2022 Glucose [Mass/Vol] 123 mg/dL High 55 - 99 mg/dL [facility] POC Subsection Comment on above: Result Comment: Madelaine toro RN/ POC Device SN [id number] Invalid Interpretation Code [facility] POC Subsection POC User ID [id number] Invalid Interpretation Code [facility] POC Subsection POC Username CHELE MENDOZA Invalid Interpretation Code [facility] POC Subsection HEMATOLOGYOrdered By: SYSTEM SYSTEM on [...] determined as this extends off the image [id number]. IMPRESSION: Low lying left cerebellar tonsil Original [...] abnormal postcontrast enhancement Limited exam with poor hgbtyd-[id number] ratio, this is particularly on the postcontrast images IMPRESSION: Limited exam, no acute abnormality observed Normal [facility] CBC AUTO DIFFon 03-29-2022 BASO # 0.0 103/ul Normal 0.0-0.1 [facility] Comment on above: Performed By: #### C BC #### [facility] [address] [place] [address] Dr. Alejandra Crystal Basophils/100 WBC (Bld) 0.4 % Normal 0.2-2.0 [facility] Comment on above: Performed By: #### C BC #### [facility] [address] [place] [address] Dr. Alejandra Crystal EO # 0.0 103/ul Normal 0.0-0.7 [facility] Comment on above: Performed By: #### C BC #### [facility] [address] [address] [address] Alejandra Crystal Eosinophils/100 WBC (Bld) 0.6 % Critically low 0.9-7.0 [facility] Comment on above: Performed By: #### C BC #### [facility] [address] [place] [address] Dr. Alejandra Crystal Erythrocyte distribution width (RBC) [Ratio] 13.0 % Normal 11.0-15.0 [facility] Comment on above: Performed By: #### C BC #### [facility] [address] [place] [address] Dr. Alejandra Crystal Hematocrit (Bld) [Volume fraction] 42.0 % Normal 36.0-48.0 [facility] Comment on above: Performed By: #### C BC #### [facility] [address] [place] [address] Dr. Alejandra Crystal Hemoglobin (Bld) [Mass/Vol] 14.3 g/dL Normal 12.0-16.0 [facility] Comment on above: Performed By: #### C BC #### [facility] [address] [place] [address] Dr. Alejandra Crystal IG # 0.04 10e3/ul Critically high 0.00-0.03 [facility] Comment on above: Performed By: #### C BC #### [facility] [address] [place] [address] Dr. Alejandra Crystal IG % 0.6 % Critically high 0.0-0.5 [facility] Comment on above: Performed By: #### C BC #### [facility] [address] [place] [address] Dr. Alejandra Crystal LYMPH # 2.5 103/ul Normal 1.2-3.8 [facility] Comment on above: Performed By: #### C BC #### [facility] [address] [place] [address] Dr. Alejandra Crystal Lymphocytes/100 WBC (Bld) 34.9 % Normal 20.5-60.0 [facility] Comment on above: Performed By: #### C BC #### [facility] [address] [place] [address] Dr. Alejandra Crystal MANUAL DIFF REQ NO Normal [facility] Comment on above: Performed By: #### C BC #### [facility] [address] [place] [address] Dr. Alejandra Crystal MCH (RBC) [Entitic mass] 31.4 pg Normal 26.7-34.0 [facility] Comment on above: Performed By: #### C BC #### [facility] [address] [id number] [address] Alejandra Crystal MCHC (RBC) [Mass/Vol] 34.0 g/dL Normal 29.9-35.2 [facility] Comment on above: Performed By: #### C BC #### [facility] [address] [address] [address] Alejandra Crystal MCV (RBC) [Entitic vol] 92.1 fL Normal 81.0-99.0 [facility] Comment on above: Performed By: #### C BC #### [facility] [address] [place] [address] Dr. Alejandra Crystal MONO # 0.6 103/ul Normal 0.3-0.8 [facility] Comment on above: Performed By: #### C BC #### [facility] [address] [place] [address] Dr. Alejandra Crystal Monocytes/100 WBC (Bld) 8.7 % Normal 1.7-12.0 [facility] Comment on above: Performed By: #### C BC #### [facility] [address] [place] [address] Dr. Alejandra Crystal NEUT # 4.0 103/ul Normal 1.4-6.5 [facility] Comment on above: Performed By: #### C BC #### [facility] [address] [place] [address] Dr. Alejandra Crystal Neutrophils/100 WBC (Bld) 54.8 % Normal 43.0-75.0 [facility] Comment on above: Performed By: #### C BC #### [facility] [address] [place] [address] Dr. Alejandra rCystal Platelet mean volume (Bld) [Entitic vol] 9.8 fL Normal 9.5-13.5 [facility] Comment on above: Performed By: #### C BC #### [facility] [address] [place] [address] Dr. Alejandra Crystal PLT 274 103/ul Normal 150-450 [facility] Comment on above: Performed By: #### C BC #### [facility] [address] [address] [address] Alejandra Crystal RBC 4.56 106/ul Normal 4.20-5.40 [facility] Comment on above: Performed By: #### C BC #### [facility] [address] [place] [address] Dr. Alejandra Crystal WBC 7.2 103/ul Normal 4.0-11.0 [facility] Comment on above: Performed By: #### C BC #### [facility] [address] [place] [address] Dr. Alejandra Crystal ER URINE PROFILEon 2 Bilirubin Ql (U) Negative Normal NEGATIVE [facility] Comment on above: Performed By: #### O BSCRN #### [facility] [address] [place] [address] Dr. Alejandra Crystal Clarity (U) CLEAR Normal CLEAR [facility] Comment on above: Performed By: #### O BSCRN #### [facility] [address] [place] [address] Dr. Alejandra Crystal Color (U) YELLOW Normal YELLOW [facility] Comment on above: Performed By: #### O BSCRN #### [facility] [address] [place] [address] Dr. Alejandra LEONARD A micrscopic examina tion will be performed if indicated. Normal [facility] Comment on above: Performed By: #### O BSCRN #### [facility] [address] [place] [address] Dr. Alejandra Crystal Glucose Ql (U) Negative Normal NEGATIVE [facility] Comment on above: Performed By: #### O BSCRN #### [facility] [address] [place] [address] Dr. Alejandra Crystal Hemoglobin Ql (U) Negative Normal NEGATIVE [facility] Comment on above: Performed By: #### O BSCRN #### [facility] [address] [place] [address] Dr. Alejandra Crystal Ketones Ql (U) Negative Normal NEGATIVE [facility] Comment on above: Performed By: #### O BSCRN #### [facility] [address] [place] [address] Dr. Alejandra Crystal LEUKOCYTES Negative Normal NEGATIVE [facility] Comment on above: Performed By: #### O BSCRN #### [facility] [address] [place] [address] Dr. Alejandra Crystal Nitrite Ql (U) Negative Normal NEGATIVE [facility] Comment on above: Performed By: #### O BSCRN #### [facility] [address] [place] [address] Dr. Alejandra Crystal pH (U) 6.0 [pH] Normal 5-9 [facility] Comment on above: Performed By: #### O BSCRN #### [facility] [address] [place] [address] Dr. Alejandra Crytsal SPEC GRAVITY >=1.030 Abnormal 1.005-<=1.0 25 [facility] Comment on above: Performed By: #### O BSCRN #### [facility] [address] [place] [address] Dr. Alejandra Crystal UA PROTEIN Negative Normal NEGATIVE/ TRACE [facility] Comment on above: Performed By: #### O BSCRN #### [facility] [address] [place] [address] Dr. Alejandra Crystal UR MICRO IND NOT INDICATED Normal [facility] Comment on above: Performed By: #### O BSCRN #### [facility] [address] [place] [address] Dr. Alejandra Crystal Urobilinogen Qn (U) 0.2 {Ernst'U}/dL Normal 0.2 - 1. 0 [facility] Comment on above: Performed By: #### O BSCRN #### [facility] [address] [place] [address] Dr. Alejandra Crystal MAGNESIUMon 03-29-2022 Magnesium [Mass/Vol] 2.1 mg/dL Normal 1.8-2.4 [facility] Comment on above: Performed By: #### I NFLUAB #### [facility] [address] [place] [address] Dr. Alejandra Crystal PREG HCG QUALon 03-29-2022 , QUAL Negative Normal NEGATIVE [facility] Comment on above: Performed By: #### I NSULIN #### [facility] [address] [place] [address] Dr. Alejandra Crystal PROF 14(COMP METB)on 022 Albumin [Mass/Vol] 3.7 g/dL Normal 3.4-5.0 [facility] Comment on above: Performed By: #### I NFLUAB #### [facility] [address] [place] [address] Dr. Alejandra Crystal Albumin/Globulin [Mass ratio] 1.2 {ratio} Normal [facility] Comment on above: Performed By: #### I NFLUAB #### [facility] [address] [place] [address] Dr. Alejandra Crystal ALP [Catalytic activity/Vol] 120 U/L Critically high 46-116 [facility] Comment on above: Performed By: #### I NFLUAB #### [facility] [address] [place] [address] Dr. Alejandra Crystal ALT [Catalytic activity/Vol] 23 U/L Normal 14-59 [facility] Comment on above: Performed By: #### I NFLUAB #### [facility] [address] [place] [address] Dr. Alejandra Crystal Anion gap [Moles/Vol] 12.6 mmol/L Normal [facility] Comment on above: Performed By: #### I NFLUAB #### [facility] [address] [place] [address] Dr. Alejandra Crystal AST [Catalytic activity/Vol] 14 U/L Critically low 15-37 [facility] Comment on above: Performed By: #### I NFLUAB #### [facility] [address] [place] [address] Dr. Alejandra Crystal Bilirubin [Mass/Vol] 0.4 mg/dL Normal 0.2-1.0 [facility] Comment on above: Performed By: #### I NFLUAB #### [facility] [address] [place] [address] Dr. Alejandra Crystal Calcium [Mass/Vol] 9.0 mg/dL Normal 8.5-10.1 [facility] Comment on above: Performed By: #### I NFLUAB #### [facility] [address] [address] [address] Alejandra Crystal Chloride [Moles/Vol] 109 mmol/L Critically high 98-107 [facility] Comment on above: Performed By: #### I NFLUAB #### [facility] [address] [address] [address] Alejandra Crystal CO2 [Moles/Vol] 21.2 mmol/L Normal 21.0-32.0 [facility] Comment on above: Performed By: #### I NFLUAB #### [facility] [address] [place] [address] Dr. Alejandra Crystal Creatinine [Mass/Vol] 0.93 mg/dL Normal 0.55-1.02 [facility] Comment on above: Performed By: #### I NFLUAB #### [facility] [address] [place] [address] Dr. Alejandra Crystal EGFR-AF ALGERIAN Normal >=60 [facility] Comment on above: Performed By: #### I NFLUAB #### [facility] [address] [place] [address] Dr. Alejandra Crystal EGFR-NON AF ALGERIAN Normal >=60 [facility] Comment on above: Performed By: #### I NFLUAB #### [facility] [address] [place] [address] Dr. Alejandra Crystal Globulin (S) [Mass/Vol] 3.2 g/dL Normal [facility] Comment on above: Performed By: #### I NFLUAB #### [facility] [address] [place] [address] Dr. Alejandra Crystal Glucose [Mass/Vol] 100 mg/dL Normal 74-106 [facility] Comment on above: Performed By: #### I NFLUAB #### [facility] [address] [place] [address] Dr. Alejandra Crystal Potassium [Moles/Vol] 2.8 mmol/L Critically low 3.5-5.1 [facility] Comment on above: Performed By: #### I NFLUAB #### [facility] [address] [address] [address] Alejandra Crystal Protein [Mass/Vol] 6.9 g/dL Normal 6.4-8.2 [facility] Comment on above: Performed By: #### I NFLUAB #### [facility] [address] [place] [address] Dr. Alejandra Crystal Sodium [Moles/Vol] 140 mmol/L Normal 136-145 [facility] Comment on above: Performed By: #### I NFLUAB #### [facility] [address] [place] [address] Dr. Alejandra Crystal Urea nitrogen [Mass/Vol] 16.0 mg/dL Normal 7.0-18.0 [facility] Comment on above: Performed By: #### I NFLUAB #### [facility] [address] [place] [address] Dr. Alejandra Crystal Urea nitrogen/Creatinine [Mass ratio] 17.2 mg/mg Normal [facility] Comment on above: Performed By: #### I NFLUAB #### [facility] [address] [place] [address] Dr. Alejandra Crystal TROPONIN, HIGH SENSITIVITYon 03-29-2022 HSTROP 5.2 pg/mL Normal 4.0-51.3 [facility] Comment on above: Result Comment: CUT- OFF POINTS HAVE BEEN ESTABLISHED BASED ON THE FOURTH UNIVERSAL DEFINITIONS OF MYOCARDIAL INFARCTION. THE UPPER REFERENCE LIMIT (URL) OF TROPONIN, DEFINED THE 99TH PERCENTILE OF cTnI DISTRIBUTION IN A REFERENCE POPULATION, HAS BEEN CONFIRMED THE DECISION THRESHOLD FOR MO DIAGNOSIS. Performed By: #### I NFLUAB #### [facility] [address] [place] [address] Dr. Alejandra Crystal [facility]08 SARS-CoV-2 (COVID-19) RNA JAYNE+probe Ql (Unsp spec) Not detected Normal NOT DETECTED [facility] Comment on above: Result Comment: This test is not yet approved or cleared by the [place] FDA. When there are no FDA-approved or cleared tests available, and other criteria are met, FDA can make tests available under an emergency access mechanism called an Emergency Use Authorization (EUA). The EUA for this test is supported by the [place] of Health and Human Service's (HHS's) declaration [...] L IPID, URIC, CMP, T7, TSH #### [facility] [address] [place] [address] Dr. Alejandra Crystal MRI BRAIN WO W [...] CHAY MENDOZA Date: 2022-03-06 07:26 Normal [facility] CHEMISTRYOrdered By: SYSTEM SYSTEM on 02-21-2022 T4 [Mass/Vol] 5.1 ug/dL Normal 4.6 - 9.1 mcg/dL [facility] Remisol TSH Qn 0.20 m[IU]/L Low 0.34 - 5.60 mcIU/mL [facility] Remisol Covid-19 PCR ([facility])on 01-06 SARS-CoV-2 (COVID-19) RNA JAYNE+probe Ql (Unsp spec) Not detected Normal NOT DETECTED [facility] Comment on above: Result [...] for this test is supported by the [place] of Health and Human Service's declaration that [...] used). Performed By: #### I NFLUAB #### [facility] [address] [place] [address] Dr. Alejandra Crystal CBC AUTO DIFFon 01-01-2022 BASO # 0.0 103/ul Normal 0.0-0.1 [facility] Comment on above: Performed By: #### O BSCRN #### [facility] [address] [place] [address] Dr. Alejandra Crystal Basophils/100 WBC (Bld) 0.7 % Normal 0.2-2.0 [facility] Comment on above: Performed By: #### O BSCRN #### [facility] [address] [place] [address] Dr. Alejandra Crystal EO # 0.1 103/ul Normal 0.0-0.7 [facility] Comment on above: Performed By: #### O BSCRN #### [facility] [address] [place] [address] Dr. Alejandra Crystal Eosinophils/100 WBC (Bld) 1.1 % Normal 0.9-7.0 [facility] Comment on above: Performed By: #### O BSCRN #### [facility] [address] [place] [address] Dr. Alejandra Crystal Erythrocyte distribution width (RBC) [Ratio] 13.1 % Normal 11.0-15.0 [facility] Comment on above: Performed By: #### O BSCRN #### [facility] [address] [place] [address] Dr. Alejandra Crystal Hematocrit (Bld) [Volume fraction] 43.4 % Normal 36.0-48.0 [facility] Comment on above: Performed By: #### O BSCRN #### [facility] [address] [place] [address] Dr. Alejandra Crystal Hemoglobin (Bld) [Mass/Vol] 14.5 g/dL Normal 12.0-16.0 [facility] Comment on above: Performed By: #### O BSCRN #### [facility] [address] [place] [address] Dr. Alejandra Crystal IG # 0.02 10e3/ul Normal 0.00-0.03 [facility] Comment on above: Performed By: #### O BSCRN #### [facility] [address] [place] [address] Dr. Alejandra Crystal IG % 0.4 % Normal 0.0-0.5 [facility] Comment on above: Performed By: #### O BSCRN #### [facility] [address] [place] [address] Dr. Alejandra Crystal LYMPH # 1.9 103/ul Normal 1.2-3.8 [facility] Comment on above: Performed By: #### O BSCRN #### [facility] [address] [place] [address] Dr. Alejandra Crystal Lymphocytes/100 WBC (Bld) 34.1 % Normal 20.5-60.0 [facility] Comment on above: Performed By: #### O BSCRN #### [facility] [address] [place] [address] Dr. Alejandra Crystal MANUAL DIFF REQ NO Normal [facility] Comment on above: Performed By: #### O BSCRN #### [facility] [address] [place] [address] Dr. Alejandra Crystal MCH (RBC) [Entitic mass] 30.9 pg Normal 26.7-34.0 [facility] Comment on above: Performed By: #### O BSCRN #### [facility] [address] [place] [address] Dr. Alejandra Crystal MCHC (RBC) [Mass/Vol] 33.4 g/dL Normal 29.9-35.2 [facility] Comment on above: Performed By: #### O BSCRN #### [facility] [address] [place] [address] Dr. Alejandra Crystal MCV (RBC) [Entitic vol] 92.5 fL Normal 81.0-99.0 [facility] Comment on above: Performed By: #### O BSCRN #### [facility] [address] [place] [address] Dr. Aleajndra Crystal MONO # 0.4 103/ul Normal 0.3-0.8 [facility] Comment on above: Performed By: #### O BSCRN #### [facility] [address] [place] [address] Dr. Alejandra Crystal Monocytes/100 WBC (Bld) 7.7 % Normal 1.7-12.0 [facility] Comment on above: Performed By: #### O BSCRN #### [facility] [address] [address] [address] Alejandra Crystal NEUT # 3.0 103/ul Normal 1.4-6.5 [facility] Comment on above: Performed By: #### O BSCRN #### [facility] [address] [address] [address] Alejandra Crystal Neutrophils/100 WBC (Bld) 56.0 % Normal 43.0-75.0 [facility] Comment on above: Performed By: #### O BSCRN #### [facility] [address] [address] [address] Alejandra Crystal Platelet mean volume (Bld) [Entitic vol] 9.4 fL Critically low 9.5-13.5 [facility] Comment on above: Performed By: #### O BSCRN #### [facility] [address] [place] [address] Dr. Alejandra Crystal PLT 313 103/ul Normal 150-450 [facility] Comment on above: Performed By: #### O BSCRN #### [facility] [address] [place] [address] Dr. Alejandra Crystal RBC 4.69 106/ul Normal 4.20-5.40 [facility] Comment on above: Performed By: #### O BSCRN #### [facility] [address] [address] [address] Alejandra Crystal WBC 5.4 103/ul Normal 4.0-11.0 [facility] Comment on above: Performed By: #### O BSCRN #### [facility] [address] [address] [address] Alejandra Crystal FREE T3on 01-01-2022 FREE T3 4.72 pg/mlL Critically high 2.18-3.98 [facility] Comment on above: Performed By: #### L IPID, URIC, CMP, T7, TSH #### [facility] [address] [address] [address] Alejandra Crystal FREE THYROXINE INDEX T7on FTI 1.25 Critically low 1.30-4.50 [facility] Comment on above: Performed By: #### L IPID, URIC, CMP, T7, TSH #### [facility] [address] [address] [address] Alejandra Crystal T3U 32.0 % Normal 30.0-39.0 [facility] Comment on above: Performed By: #### L IPID, URIC, CMP, T7, TSH #### [facility] [address] [address] [address] Alejandra Crystal T4 [Mass/Vol] 3.90 ug/dL Critically low 4.80-13.90 [facility] Comment on above: Performed By: #### L IPID, URIC, CMP, T7, TSH #### [facility] [address] [place] [address] Dr. Alejandra Crystal PROF 14(COMP METB)on 022 Albumin [Mass/Vol] 3.8 g/dL Normal 3.4-5.0 [facility] Comment on above: Performed By: #### L IPID, URIC, CMP, T7, TSH #### [facility] [address] [place] [address] Dr. Alejandra Crystal Albumin/Globulin [Mass ratio] 11.4 {ratio} Normal [facility] Comment on above: Performed By: #### L IPID, URIC, CMP, T7, TSH #### [facility] [address] [place] [address] Dr. Alejandra Crystal ALP [Catalytic activity/Vol] 123 U/L Critically high 46-116 [facility] Comment on above: Performed By: #### L IPID, URIC, CMP, T7, TSH #### [facility] [address] [address] [address] Alejandra Crystal ALT [Catalytic activity/Vol] 27 U/L Normal 14-59 [facility] Comment on above: Performed By: #### L IPID, URIC, CMP, T7, TSH #### [facility] [address] [address] [address] Alejandra Crystal Anion gap [Moles/Vol] 11.5 mmol/L Normal [facility] Comment on above: Performed By: #### L IPID, URIC, CMP, T7, TSH #### [facility] [address] [address] [address] Alejandra Crystal AST [Catalytic activity/Vol] 16 U/L Normal 15-37 [facility] Comment on above: Performed By: #### L IPID, URIC, CMP, T7, TSH #### [facility] [address] [address] [address] Alejandra Crystal Bilirubin [Mass/Vol] 0.6 mg/dL Normal 0.2-1.0 [facility] Comment on above: Performed By: #### L IPID, URIC, CMP, T7, TSH #### [facility] [address] [place] [address] Dr. Alejandra Crystal Calcium [Mass/Vol] 8.8 mg/dL Normal 8.5-10.1 [facility] Comment on above: Performed By: #### L IPID, URIC, CMP, T7, TSH #### [facility] [address] [address] [address] Alejandra Crystal Chloride [Moles/Vol] 110 mmol/L Critically high 98-107 [facility] Comment on above: Performed By: #### L IPID, URIC, CMP, T7, TSH #### [facility] [address] [address] [address] Alejandra Crystal CO2 [Moles/Vol] 23.9 mmol/L Normal 21.0-32.0 [facility] Comment on above: Performed By: #### L IPID, URIC, CMP, T7, TSH #### [facility] [address] [place] [address] Dr. Alejandra Crystal Creatinine [Mass/Vol] 0.90 mg/dL Normal 0.55-1.02 [facility] Comment on above: Performed By: #### L IPID, URIC, CMP, T7, TSH #### [facility] [address] [place] [address] Dr. Alejandra Crystal EGFR-AF ALGERIAN >=60 Normal >=60 [facility] Comment on above: Performed By: #### L IPID, URIC, CMP, T7, TSH #### [facility] [address] [address] [address] Alejandra Crystal EGFR-NON AF ALGERIAN >=60 Normal >=60 [facility] Comment on above: Performed By: #### L IPID, URIC, CMP, T7, TSH #### [facility] [address] [address] [address] Alejandra Crystal Globulin (S) [Mass/Vol] 3.5 g/dL Normal [facility] Comment on above: Performed By: #### L IPID, URIC, CMP, T7, TSH #### [facility] [address] [place] [address] Dr. Alejandra Crystal Glucose [Mass/Vol] 107 mg/dL Critically high 74-106 T [facility] Comment on above: Performed By: #### L IPID, URIC, CMP, T7, TSH #### [facility] [address] [place] [address] Dr. Alejandra Crystal Potassium [Moles/Vol] 3.3 mmol/L Critically low 3.5-5.1 [facility] Comment on above: Performed By: #### L IPID, URIC, CMP, T7, TSH #### [facility] [address] [place] [address] Dr. Alejandra Crystal Protein [Mass/Vol] 7.3 g/dL Normal 6.4-8.2 [facility] Comment on above: Performed By: #### L IPID, URIC, CMP, T7, TSH #### [facility] [address] [address] [address] Alejandra Crystal Sodium [Moles/Vol] 142 mmol/L Normal 136-145 [facility] Comment on above: Performed By: #### L IPID, URIC, CMP, T7, TSH #### [facility] [address] [place] [address] Dr. Alejandra Crystal Urea nitrogen [Mass/Vol] 13.0 mg/dL Normal 7.0-18.0 [facility] Comment on above: Performed By: #### L IPID, URIC, CMP, T7, TSH #### [facility] [address] [place] [address] Dr. Alejandra Crystal Urea nitrogen/Creatinine [Mass ratio] 14.4 mg/mg Normal [facility] Comment on above: Performed By: #### L IPID, URIC, CMP, T7, TSH #### [facility] [address] [place] [address] Dr. Alejandra Crystal TSHon 01-01-2022 TSH 0.177 uIU/mL Critically low 0.358-3.740 [facility] Comment on above: Performed By: #### L IPID, URIC, CMP, T7, TSH #### [facility] [address] [place] [address] Dr. Alejandra Crystal T4 [facility]Pon 12-02-2021 T4 [Mass/Vol] 4.8 ug/dL Normal 4.5-12.0 [facility] Comment on above: Performed By: #### I NFLUAB #### [facility] [address] [place] [address] Dr. Alejandra Crystal OCC BLD IMMUNO SCREENon 11-06 OCCULT BLOOD Negative Normal NEGATIVE [facility] Comment on above: Performed By: #### O BSCRN #### [facility] [address] [place] [address] Dr. Alejandra Crystal CBC AUTO DIFFon 11-30-2021 BASO # 0.1 103/ul Normal 0.0-0.1 [facility] Comment on above: Performed By: #### I NFLUAB #### [facility] [address] [place] [address] Dr. Alejandra Crystal Basophils/100 WBC (Bld) 0.8 % Normal 0.2-2.0 [facility] Comment on above: Performed By: #### I NFLUAB #### [facility] [address] [place] [address] Dr. Alejandra Crystal EO # 0.0 103/ul Normal 0.0-0.7 [facility] Comment on above: Performed By: #### I NFLUAB #### [facility] [address] [place] [address] Dr. Alejandra Crystal Eosinophils/100 WBC (Bld) 0.3 % Critically low 0.9-7.0 [facility] Comment on above: Performed By: #### I NFLUAB #### [facility] [address] [place] [address] Dr. Alejandra Crystal Erythrocyte distribution width (RBC) [Ratio] 12.8 % Normal 11.0-15.0 [facility] Comment on above: Performed By: #### I NFLUAB #### [facility] [address] [place] [address] Dr. Alejandra Crystal Hematocrit (Bld) [Volume fraction] 48.6 % Critically high 36.0-48.0 [facility] Comment on above: Performed By: #### I NFLUAB #### [facility] [address] [place] [address] Dr. Alejandra Crystal Hemoglobin (Bld) [Mass/Vol] 16.0 g/dL Normal 12.0-16.0 [facility] Comment on above: Performed By: #### I NFLUAB #### [facility] [address] [place] [address] Dr. Alejandra Crystal IG # 0.38 10e3/ul Critically high 0.00-0.03 [facility] Comment on above: Performed By: #### I NFLUAB #### [facility] [address] [place] [address] Dr. Alejandra Crystal IG % 2.7 % Critically high 0.0-0.5 [facility] Comment on above: Performed By: #### I NFLUAB #### [facility] [address] [place] [address] Dr. Alejandra Crystal LYMPH # 1.9 103/ul Normal 1.2-3.8 [facility] Comment on above: Performed By: #### I NFLUAB #### [facility] [address] [place] [address] Dr. Alejandra Crystal Lymphocytes/100 WBC (Bld) 13.4 % Critically low 20.5-60.0 [facility] Comment on above: Performed By: #### I NFLUAB #### [facility] [address] [address] [address] Alejandra Crystal MANUAL DIFF REQ NO Normal [facility] Comment on above: Performed By: #### I NFLUAB #### [facility] [address] [place] [address] Dr. Alejandra Crystal MCH (RBC) [Entitic mass] 30.7 pg Normal 26.7-34.0 [facility] Comment on above: Performed By: #### I NFLUAB #### [facility] [address] [place] [address] Dr. Alejandra Crystal MCHC (RBC) [Mass/Vol] 32.9 g/dL Normal 29.9-35.2 [facility] Comment on above: Performed By: #### I NFLUAB #### [facility] [address] [place] [address] Dr. Alejandra Crystal MCV (RBC) [Entitic vol] 93.3 fL Normal 81.0-99.0 [facility] Comment on above: Performed By: #### I NFLUAB #### [facility] [address] [place] [address] Dr. Alejandra Crystal MONO # 0.8 103/ul Normal 0.3-0.8 [facility] Comment on above: Performed By: #### I NFLUAB #### [facility] [address] [place] [address] Dr. Alejandra Crystal Monocytes/100 WBC (Bld) 5.7 % Normal 1.7-12.0 [facility] Comment on above: Performed By: #### I NFLUAB #### [facility] [address] [place] [address] Dr. Alejandra Crystal NEUT # 10.8 103/ul Critically high 1.4-6.5 [facility] Comment on above: Performed By: #### I NFLUAB #### [facility] [address] [place] [address] Dr. Alejandra Crystal Neutrophils/100 WBC (Bld) 77.1 % Critically high 43.0-75.0 [facility] Comment on above: Performed By: #### I NFLUAB #### [facility] [address] [address] [address] Alejandra Crystal Platelet mean volume (Bld) [Entitic vol] 9.7 fL Normal 9.5-13.5 [facility] Comment on above: Performed By: #### I NFLUAB #### [facility] [address] [address] [address] Alejandra Crystal PLT 284 103/ul Normal 150-450 [facility] Comment on above: Performed By: #### I NFLUAB #### [facility] [address] [address] [address] Alejandra Crystal RBC 5.21 106/ul Normal 4.20-5.40 [facility] Comment on above: Performed By: #### I NFLUAB #### [facility] [address] [address] [address] Alejandra Crystal WBC 14.0 103/ul Critically high 4.0-11.0 [facility] Comment on above: Performed By: #### I NFLUAB #### [facility] [address] [place] [address] Dr. Alejandra Crystal FREE T3on 11-30-2021 FREE T3 2.30 pg/mlL Normal 2.18-3.98 [facility] Comment on above: Performed By: #### O BSCRN #### [facility] [address] [place] [address] Dr. Alejandra Crystal GLYCOHEMOGLOBIN A1Con 2021 ADA RECOMMENDATION SEE BELOW Normal [facility] Comment on above: Result Comment: ADA RECOMMENDED LIMIT 4.0 - 6.0 ADA THERAPEUTIC TARGET < 7.0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 Boy Hai [facility] 01-16-2022 14:58-0400 Diastolic blood pressure 49 mm[Hg] Boy Hai [facility] 01-16-2022 14:58-0400 Heart rate 71 /min Boy Hai [facility] 01-16-2022 14:58-0400 Respiratory rate 12 /min Boy Hai [facility] 01-16-2022 14:58-0400 SaO2% (BldA) [Mass fraction] 97 % Boy Hai [facility] 01-16-2022 14:58-0400 Systolic blood pressure 117 mm[Hg] Boy Hai [facility] 01-16-2022 14:41-0400 Body temperature 98.6 [degF] Boy Hai [facility] 01-16-2022 14:41-0400 Diastolic blood pressure 57 mm[Hg] Boy Hai [facility] 01-16-2022 14:41-0400 Heart rate 73 /min Boy Hai [facility] 01-16-2022 14:41-0400 Mean blood pressure 74 mm[Hg] Boy Hai [facility] 01-16-2022 14:41-0400 Respiratory rate 12 /min Boy Hai [facility] 01-16-2022 14:41-0400 SaO2% (BldA) [Mass fraction] 98 % Boy Hai [facility] 01-16-2022 14:41-0400 Systolic blood pressure 109 mm[Hg] Boy Hai [facility] 11-17-2021 08:50-0400 Diastolic blood pressure 76 mm[Hg] Ade Talamantes [facility] 11-17-2021 08:50-0400 Heart rate 62 /min Ade Talamantes [facility] 11-17-2021 08:50-0400 Mean blood pressure 96 mm[Hg] [employer] [facility] 11-17-2021 08:50-0400 Respiratory rate 18 /min [employer] [facility] 11-17-2021 08:50-0400 Systolic blood pressure 135 mm[Hg] Ade Talamantes [facility] 10-30-2021 07:57-0400 Diastolic blood pressure 77 mm[Hg] Boy Hai [facility] 10-30-2021 07:57-0400 Heart rate 59 /min Boy Hai [facility] 10-30-2021 07:57-0400 Mean blood pressure 89 mm[Hg] Boy Hai [facility] 10-30-2021 07:57-0400 SaO2% (BldA) [Mass fraction] 98 % Boy Hai [facility] 10-30-2021 07:57-0400 Systolic blood pressure 113 mm[Hg] Boy Hai [facility] 10-30-2021 07:49-0400 Diastolic blood pressure 72 mm[Hg] Boy Hai [facility] 10-30-2021 07:49-0400 Heart rate 61 /min Boy Hai [facility] 10-30-2021 07:49-0400 Respiratory rate 16 /min Boy Hai [facility] 10-30-2021 07:49-0400 SaO2% (BldA) [Mass fraction] 97 % Boy Hai [facility] 10-30-2021 07:49-0400 Systolic blood pressure 103 mm[Hg] Boy Hai [facility] 10-30-2021 07:18-0400 Body temperature 98.24 [degF] Boy Hai [facility] 10-30-2021 07:18-0400 Diastolic blood pressure 64 mm[Hg] Boy Hai [facility] 10-30-2021 07:18-0400 Heart rate 72 /min Boy Hai [facility] 10-30-2021 07:18-0400 Mean blood pressure 74 mm[Hg] Boy Valles [facility] 10-30-2021 07:18-0400 Respiratory rate 14 /min Boy Valles [facility] 10-30-2021 07:18-0400 SaO2% (BldA) [Mass fraction] 97 % Boy Valles [facility] 10-30-2021 07:18-0400 Systolic blood pressure 95 mm[Hg] Boy Valles [facility] Encounters Encounter Date Encounter Type Care Provider Facility Start: 03-04-2024 End: 03-04-2024 ambulatory Andreas French RT(R) Radiology Comment on above: Radiology MRI Start: 03-04-2024 End: 03-04-2024 Patient encounter procedure Andreas French RT(R) Radiology Start: 03-02-2024 ambulatory Devon Sanders acility:[facility] Start: 02-07-2024 End: 02-07-2024 ambulatory GABRIELA BILL Facility:[facility] Start: 02-07-2024 End: 02-07-2024 Patient encounter procedure Gabriela Bill ASSISTANT SITE MANAGER.MANAGEMENT ENGINEER Work Phone: [facility] Comment on above: Skull lesion (Primar y Dx) Start: 01-28-2024 End: 01-29-2024 ambulatory MIRANDA JOSE Not Available Start: 01-17-2024 End: 01-17-2024 ambulatory GUSTAVO BARKER Not Available Start: 12-23-2023 End: 12-23-2023 ambulatory GUSTAVO BARKER Not Available Start: 12-20-2023 E-mail encounter fro m caregiver Self [facility] Start: 12-20-2023 Patient encounter procedure Self [facility] Comment on above: Upcoming Appointment s Start: 12-20-2023 End: 12-20-2023 ambulatory GUSTAVO BARKER Not Available Start: 12-09-2023 End: 12-09-2023 ambulatory GUSTAVO BARKER Not Available Start: 12-04-2023 End: 12-04-2023 ambulatory MIRANDA JOSE Not Available Start: 11-11-2023 End: 11-11-2023 ambulatory PEEP ALCAZAR Facility:[facility] Start: 11-11-2023 End: 11-11-2023 Patient encounter procedure [...] encounter procedure CHELE EPSTEIN [facility] Start: 10-28-2023 End: 10-28-2023 Emergency department patient visit Rosalio Dan [facility] Start: 09-28-2023 End: 09-28-2023 Emergency department patient visit Dandy SKetan Ashton [facility] Start: 09-17-2023 End: 09-17-2023 Emergency department patient visit Dandy SKetan Ashton [facility] Start: 07-29-2023 End: 10-06-2023 ambulatory Ade Talamantes Facility:[facility] Start: 06-25-2023 End: 07-03-2023 Pre-admission assessment Ade Talamantes [facility] Start: 06-10-2023 End: 06-10-2023 ambulatory Ade Talamantes Facility:[facility] Start: 06-10-2023 End: 06-10-2023 Pain Management Ade Talamantes [facility] Start: 05-08-2023 End: 05-08-2023 ambulatory PEPE ALCAZAR Facility:[facility] Start: 05-08-2023 End: 05-08-2023 Patient encounter procedure Stalin Reyes MD Work Phone: Neurology Comment on above: Radiculopathy, lumba r region (Primary Dx); Intractable chronic migraine without aura and without status migrainosus; Essential tremor; Depression, unspecified depression type; Anxiety Start: 05-07-2023 End: 05-07-2023 ambulatory Boy Valles Facility:[facility] Start: 05-07-2023 End: 05-07-2023 Pain Management Boy Valles [facility] Start: 04-19-2023 End: 04-19-2023 ambulatory Ade Talamantes Facility:[facility] Start: 04-19-2023 End: 04-19-2023 Pain Management Ade Talamantes [facility] Start: 03-14-2023 End: 03-15-2023 Emergency department patient visit Chandni Walshkristina [facility] Start: 02-05-2023 End: 02-05-2023 Patient encounter procedure Nathanael Ryan MD Work Phone: [facility] Comment on above: Hemangioma of bone ( Primary Dx); Brain tumor (HCC) Start: 01-24-2023 ambulatory Ade Valderrama RT(R) Ra diology Comment on above: Radiology MRI Start: 01-24-2023 Patient encounter procedure Ade Valderrama RT(R) [facility] [place] Start: 12-26-2022 Telephone encounter Gus Alvarez [facility] Comment on above: Triage (Internal) Start: 12-18-2022 Telephone encounter Keesha delacruz RN Work Phone: [facility] Comment on above: Insurance Authorizat ion (Emgality 120MG/ML auto-injectors (migraine)/) Start: 12-17-2022 End: 12-17-2022 ambulatory STALIN REYES Facility:[facility] Start: 10-13-2022 End: 10-13-2022 ambulatory [facility] Start: 10-01-2022 End: 10-01-2022 Pain Management Ade Talamantes [facility] Start: 09-20-2022 End: 09-20-2022 Patient encounter procedure Pepe Alcazar [facility] Start: 08-28-2022 ambulatory [facility] Start: 08-25-2022 End: 08-26-[address] PEPE ALCAZAR . Facility:[facility] Start: 08-16-2022 End: 08-16-[address] PEPE ALCAZAR . Facility:[facility] Start: 08-14-2022 End: 08-14-2022 Pain Management Boy Valles [facility] Start: 08-13-2022 End: 08-13-[address] PEPE ALCAZAR . Facility:[facility] Start: 07-17-2022 End: 08-01-2022 Pre-admission assessment Boy Valles [facility] Start: 07-03-2022 End: 07-03-2022 Pain Management Boy Valles [facility] Start: 06-06-2022 End: 06-06-[address] PEPE ALCAZAR . Facility:[facility] Start: 06-04-2022 Encounter for genera l adult medical examination without abnormal findings DR PEPE ALCAZAR . [facility] Start: 05-29-2022 End: 05-30-[address] PEPE ALCAZAR . Facility:[facility] Start: 05-29-2022 End: 05-30-2022 Encounter for general adult medical examination without abnormal findings DR PEPE ALCAZAR . Facility:[facility] Start: 05-18-2022 End: 05-18-2022 Pain Management Ade Talamantes [facility] Start: 05-17-2022 End: 05-18-[address] PEPE ALCAZAR . Facility:[facility] Start: 05-15-2022 End: 05-16-[address] PEPE ALCAZAR . Facility:[facility] Start: 04-23-2022 End: 04-23-2022 Patient encounter procedure MIRANDA CAT [facility] Start: 04-11-2022 End: 04-11-2022 Emergency department patient visit Jim Ramirez [facility] Start: 04-09-2022 End: 04-09-2022 Pain Management Ade Talamantes [facility] Start: 04-09-2022 End: 04-10-[address] PEPE ALCAZAR . Facility:[facility] Start: 03-29-2022 End: 03-29-2022 ambulatory MARANDA BARRERA . Facility:[facility] Start: 03-19-2022 End: 03-19-[address] PEPE ALCAZAR . Facility:[facility] Start: 03-05-2022 End: 03-06-[address] PEPE ALCAZAR . Facility:[facility] Start: 02-21-2022 End: 02-21-2022 Patient encounter procedure ADE AMARO [facility] Start: 02-09-2022 End: 02-09-2022 Pain Management Ade Talamantes [facility] Start: 01-29-2022 End: 01-29-[address] PEPE ALCAZAR . Facility:[facility] Start: 01-16-2022 End: 01-16-2022 Pain Management Boy Valles [facility] Start: 01-05-[address] PEPE ALCAZAR . Facili ty:[facility] Start: 01-01-2022 End: 01-02-[address] PEPE ALCAZAR . Facility:[facility] Start: 12-01-2021 End: 12-01-[address] PEPE ALCAZAR . Facility:[facility] Start: 11-30-2021 End: 12-01-[address] PPEE ALCAZAR . Facility:[facility] Start: 11-28-2021 End: 11-28-2021 ambulatory MIRANDA CAT Facility:[facility] Start: 11-22-2021 End: 11-22-[address] PEPE ALCAZAR . Facility:[facility] Start: 11-17-2021 End: 11-17-2021 Pain Management Ade Talamantes [facility] Start: 10-30-2021 End: 10-30-2021 Pain Management Boy Valles [facility] Start: 10-07-2017 End: 10-08-2017 Ambulatory REFERRED SELF Facility:[facility] Procedures Date Procedure Procedure Detail Performing Clinician Start: 05-07-2023 Injection of nerve r oot of lumbar spine using fluoroscopic guidance [employer] Comment on above: L4-L5-50% relief for 1 week Start: 10-13-2022 Follow-up visit Follow-up EDUARDO HYDE Start: 08-14-2022 Injection of nerve r oot of lumbar spine using fluoroscopic guidance Pepe Alcazar Comment on above: 50% relief Start: 01-16-2022 Injection of sacroil iac joint [employer] Comment on above: left SIJI 45% relief [...] DTaP,Tdap,Td Vaccine (2 - Td or Tdap) [facility] Start: 03-10-2024 End: 03-10-2024 ambulatory 03/10/2024 2:45 PM EDT OT/PT/Speech Visit Physical Therapy [address] [place] [address] Eunice Mercado, PT [address] [place] [address] Back of head and neck hurt the worst. Physical Therapy Comment on above: Back of head and nec k hurt the worst. Start: 03-08-2024 Influenza vaccination [facility] Start: 03-04-2024 End: 03-04-2024 Patient encounter procedure 03/04/2024 3:20 PM EDT Appointment Radiology [address] [place] [address] MRI BRAIN WO/W IVCON Radiology Comment on above: MRI BRAIN WO/W IVCON Start: 02-07-2024 End: 02-07-2024 Patient encounter procedure 02/07/2024 11:00 AM EDT Office Visit [facility] [address] [place] [address] Gabriela Bill APRN.MANAGEMENT ENGINEER [address] [place] [address] Patient is requesting that the MRI be done at [place] and her appointment with the [facility] be in person [facility] Comment on above: Patient is requestin g that the MRI be done at [place] and her appointment with the Lorene be in person Start: 02-06-2024 End: 02-06-2024 Patient encounter procedure 02/06/2024 10:40 AM EDT Appointment Radiology [address] [place], [place] [id number] Hemangioma of bone [D18.09] Radiology Comment on above: Hemangioma of bone [ D18.09] Start: 11-11-2023 End: 11-11-2023 Patient encounter procedure 11/11/2023 1:00 PM EDT Office Visit Neurology [address] [place], [place] [address] Stalin Reyes MD [address] [place] [address] 6 month follow up Neurology Comment on above: 6 month follow up Start: 03-08-2023 Covid-19 Vaccine ( season) Covid-19 Vaccine () [facility] Start: 03-08-2023 Influenza vaccination C [facility] Start: 2019 Mammography [facility] Start: 2019 Screening for malign ant neoplasm of breast Mammogram Screening [facility] Start: 2009 HPV TESTING HPV TESTING [facility] Start: 2009 Screening for malign ant neoplasm of cervix HPV Testing [facility] Start: 2000 PAP TESTING PAP TESTING [facility] Start: 2000 Screening for malign ant neoplasm of cervix Pap Testing [facility] Start: 1998 Hepatitis B Vaccine (1 of 3 - 19+ 3-dose series) Hepatitis B Vaccine (1 of 3 - 19+ 3-dose series) [facility] Start: 1998 SHINGRIX VACCINE (1 of 2) SHINGRIX VACCINE (1 of 2) [facility] Start: 1998 Urine microalbumin profile DTAP,TDAP,TD (1 - Tdap) [facility] Start: 1997 HEPATITIS C SCREENING HEPATITIS C [facility] Start: 1997 Hepatitis C screening Hepatitis C [facility] Start: 1997 HIV SCREENING HIV SCREENING [facility] Start: 1997 HIV screening HIV Screening [facility] Start: 1990 Screening for malign ant neoplasm of cervix Cervical Cancer Screening [facility] Start: 1985 PNEUMOCOCCAL (1 - PCV) PNEUMOCOCCAL (1 - PCV) [facility] Start: 1985 Pneumococcal vaccination [facility] Start: 1979 HEPATITIS B (1 of 3 - 3-dose series) HEPATITIS B (1 of 3 - 3-dose series) [facility] Start: 1979 Hepatitis B Vaccine (1 of 3 - 3-dose series) Hepatitis B Vaccine (1 of 3 - 3-dose series) [facility] Immunizations Immunization Date Immunization Notes Care Provider Fa cility 09-12-2022 influenza virus vacc ine, unspecified formulation [facility] 09-12-2022 SARS-CoV-2 (COVID-19 ) [id number].[id number] [facility] 09-12-2022 tetanus toxoid, redu leticia diphtheria toxoid, and acellular pertussis vaccine, adsorbed [facility] 01-24-2022 SARS-CoV-2 (COVID-19 ) mRNA-1273 vaccine [facility] 11-16-2020 SARS-CoV-2 (COVID-19 ) mRNA-1273 vaccine [facility] 10-19-2020 SARS-CoV-2 (COVID-19 ) mRNA-1273 vaccine [facility] 05-04-2020 influenza virus vacc ine, unspecified formulation [facility] 08-24-2019 influenza virus vacc ine, unspecified formulation Chandni Hart [facility] 03-26-2017 influenza virus vacc ine, unspecified formulation Chandni kristina [facility] Payers Date Payer Category Payer Self-pay 2022 Medicaid [employer] [place] [employer] [place] [id number] 2022-Present [phone] [address] [place] [address] Medicaid [id number] 1979 Unknown [id number] 2.16.840.1.305862.3.579.2.593 1979 Unknown [id number] 2.16.840.1.371211.3.579.2.593 1979 Unknown [id number] 2.16.840.1.394080.3.579.2.593 1979 Unknown [id number] 2.16.840.1.253298.3.579.2.593 1979 Unknown [id number] 2.16.840.1.310654.3.579.2.593 1979 Unknown [id number] 2.16.840.1.567953.3.579.2.593 1979 Unknown [id number] 2.16.840.1.411732.3.579.2.593 1979 Unknown [id number] 2.16.840.1.133348.3.579.2.593 1979 Unknown [id number] 2.16.840.1.420282.3.579.2.593 1979 Unknown [id number] 2.16.840.1.388724.3.579.2.593 1979 Unknown [id number] 2.16.840.1.252301.3.579.2.593 1979 Unknown [id number] 2.16.840.1.081666.3.579.2.593 1979 Unknown [id number] 2.16.840.1.298702.3.579.2.593 1979 Unknown [id number] 2.16.840.1.431505.3.579.2.593 1979 Unknown [id number] 2.16.840.1.331372.3.579.2.593 1979 Unknown [id number] 2.16.840.1.964666.3.579.2.593 1979 Unknown [id number] 2.16.840.1.613272.3.579.2.593 1979 Unknown [id number] 2.16.840.1.475611.3.579.2.593 1979 Unknown [id number] 2.16.840.1.991394.3.579.2.593 1979 Unknown [id number] 2.16.840.1.983402.3.579.2.72 1979 Unknown [id number] 2.16.840.1.386919.3.579.2.727 1979 Unknown [id number] 2.16.840.1.989198.3.579.2.727 1979 Unknown [id number] 2.16.840.1.096026.3.579.2.72 1979 Unknown [id number] 2.16.840.1.986854.3.579.2.727 1979 Unknown [id number] 2.16.840.1.014224.3.579.2.72 1979 Unknown [id number] 2.16.840.1.213322.3.579.2.727 1979 Unknown [id number] 2.16.840.1.664305.3.579.2.727 1979 Unknown [id number] 2.16.840.1.888966.3.579.2.727 1979 Unknown [id number] 2.16.840.1.088361.3.579.2.727 1979 Unknown [id number] 2.16.840.1.846859.3.579.2.1259 1979 Unknown [id number] 2.16.840.1.275193.3.579.2.1259 1979 Unknown [id number] 2.16.840.1.231657.3.579.2.9 1979 Unknown [id number] 2.16.840.1.458540.3.579.2.9 1979 Unknown [id number] 2.16.840.1.775619.3.579.2.9 1979 Unknown [id number] 2.16.840.1.016712.3.579.2.1259 1959 Medicaid [id number] 1959 Unknown [id number] 1959 Unknown [id number] 1959 Unknown [id number] Unknown [id number] 2.16.840.1.740619.3.579.2.531 Social History Date Type Detail Facility Start: 05-12-2015 End: 07-04-2020 Tobacco smoking status Never smoked tobacco (finding) [facility] Comment on above: Deniessd Start: 12-17-2022 End: 02-05-2023 Sex Assigned At Female [facility] Start: 05-12-2015 Tobacco use and exposure Smokeless tobacco non-user [facility] Work Phone: Start: 12-17-2022 End: 02-07-2024 Alcohol intake Current drinker of alcohol (finding) [facility] Start: 05-12-2015 Alcohol Comment occassional [facility] Start: 1979 Sex Assigned At Not on file [facility] Start: 12-17-2022 End: 02-05-2023 History of Social function [facility] Adult Depression Screening Assessment 5 [facility] Functional Status Date Assessment Result Facility 10-28-2023 Functional Status N/A [facility] 09-28-2023 Functional Status N/A [facility] 09-17-2023 Functional Status N/A [facility] 06-10-2023 Functional Status N/A [facility] 05-07-2023 Functional Status N/A [facility] 04-19-2023 Functional Status N/A [facility] 03-14-2023 Functional Status N/A [facility] 10-01-2022 Functional Status N/A [facility] 08-14-2022 Functional Status N/A [facility] 05-18-2022 Functional Status N/A [facility] 04-11-2022 Functional Status N/A [facility] 04-09-2022 Functional Status N/A [facility] 02-09-2022 Functional Status N/A [facility] 01-16-2022 Functional Status N/A [facility] Clinical Notes 11-17-2021 to 03-04-2024 Andreas French RT(R) - 03/04/2024 3:25 PM Gabriela Arguello APRN.MANAGEMENT ENGINEER - 02/07/2024 10:26 AM Ade Gavin MA - 02/07/2024 10:22 AM Ade Gavin MA - 02/07/2024 10:22 AM EDT Note Date & Type Note Facility 03-04-2024 Note HNO ID: [id number] Author: ANDREAS FRENCH RT(R) Service: ? Author [...] PATIENT PRESENTS WITH AN IMPLANTABLE OR ATTACHED OPERATIONS PLANNER: No ALLERGIES: Reviewed and unchanged CONTRAST ALLERGY: NO. EXAM: MRI - CONTRAST TYPE: GROUP II PERIPHERAL IV DATA: Ambulatory: A peripheral IV was started in the Left hand with a Angio cath: 24 gauge. RADIOLOGY DEPARTMENT: MR; Exam(s) Completed: Head: Routine Brain SIGNATURE: RT Jeevan(R) PATIENT NAME: Mitesh Burgess DATE: March 04, 2024 TIME: 3:26 PM [facility] 03-04-2024 History of Presen t illness [...] PATIENT PRESENTS WITH AN IMPLANTABLE OR ATTACHED OPERATIONS PLANNER: No ALLERGIES: Reviewed and unchanged CONTRAST ALLERGY: NO. EXAM: MRI - CONTRAST TYPE: GROUP II PERIPHERAL IV DATA: Ambulatory: A peripheral IV was started in the Left hand with a Angio cath: 24 gauge. RADIOLOGY DEPARTMENT: MR; Exam(s) Completed: Head: Routine Brain SIGNATURE: RT Jeevan(R) PATIENT NAME: Mitesh Burgess DATE: March 04, 2024 TIME: 3:26 PM documented in this encounter [facility] 02-07-2024 Note HNO ID: [id number] Author: GABRIELA BILL APRN.MANAGEMENT ENGINEER Service: ? Author Type: Nurse Practitioner Type: Progress Notes Filed: 02/07/2024 10:43 Note Text: Neurological [facility] NEURO-ONCOLOGY OUTPATIENT NOTE PURPOSE [...] objects. Good comprehe (more content not included)... [facility] 02-07-2024 History of Presen t illness Narrative Images from the original note were not included. Neurological [facility] NEURO-ONCOLOGY OUTPATIENT NOTE PURPOSE [...] anxiety, depression, skull mass, seen in the [facility] for: Dizziness, [...] and is most compatible with intraosseous hemangioma. Avian Keeper: DONNELL Transcribe Date/Time: Jan 24 2023 2:35P [...] Nathanael Ryan MD--EPIC documented in this encounter [facility] 02-07-2024 Nurse Note Additional intake questions: Has the patient had fever, nausea, vomiting, diarrhea, constipation, fatigue for > 1 week? No Does the patient have a decreased appetite? No Does patient want to see a Field Logistics Coordinator? No (yes to any of above refer patient to schedulers for dietitian appointment) ) Does patient have any new or increased numbness or tingling of extremities? No Is patient interested in fertility information? No Does patient need any prescription refills? No Does patient have an advanced directive in place? No, Patient referred to [facility] 02-07-2024 Nurse Note Additional intake questions: Has the patient had fever, nausea, vomiting, diarrhea, constipation, fatigue for > 1 week? No Does the patient have a decreased appetite? No Does patient want to see a Field Logistics Coordinator? No (yes to any of above refer patient to schedulers for dietitian appointment) ) Does patient have any new or increased numbness or tingling of extremities? No Is patient interested in fertility information? No Does patient need any prescription refills? No Does patient have an advanced directive in place? No, Patient referred to [facility] documented in this encounter [facility] 11-11-2023 Note HNO ID: [id number] Author: STALIN REYES MD Service: ? Author Type: Physician Type: Progress Notes Filed: 11/11/2023 13:34 Note Text: [facility] General Neurology Follow up/ Established patient visit Individuals who were included in, or assisted with the encounter were: Mitseh Burgess Stalin Reyes MD Chief Complaint/Issues: Mitesh Burgess is a 43 year old R handed female w PMH chronic migraine on Emgality, anxiety, depression, tardive dyskinesia from psychiatric meds on [place], skull mass following with brain tumor clinic, seen in the [facility] for: Dizziness, headache and hand tremor Most Recent Neurological Assessment and Plan: Last Filed Values Date of Most Recent Assessment and Plan 05/08/23 Specialty General Neurology Assessment Mitesh Burgess is a 43 year old R handed female w PMH chronic migraine stopped Emgality half year ago, anxiety, depression, skull mass, seen in the [facility] for: 1. [...] is a 4 (more content not included)... [facility] 11-11-2023 Note HNO ID: [id number] Author: NOREEN WEBBER MA Service: ? Author Type: Victim Advocate Type: Progress Notes Filed: 11/11/2023 13:34 Note [...] Probability Score: 17 (Sleep study not recommended) [facility] 11-11-2023 Instructions Stalin Reyes MD - 11/11/2023 1:14 PM EDT --Your Pristiq may cause dizziness. You can consider to reduce it to 100mg daily to see whether the dizziness gets better or not --Vestibular therapy for your dizziness --Continue Emgality --try vitamin B2 at 100mg daily for headache prevention --Limit tylenol to less than 2 days a week documented in this encounter [facility] 11-11-2023 History of Presen t illness Narrative Images from the original note were not included. [facility] General Neurology Follow up/ Established patient visit Individuals who were included in, or assisted with the encounter were: Mitesh Burgess Stalin Reyes MD Chief Complaint/Issues: Mitesh Burgess is a 43 year old R handed female w PMH chronic migraine on Emgality, anxiety, depression, tardive dyskinesia from psychiatric meds on [place], skull mass following with brain tumor clinic, seen in the [facility] for: Dizziness, headache and hand tremor Most Recent Neurological Assessment and Plan: Last Filed Values Date of Most Recent Assessment and Plan 05/08/23 Specialty General Neurology Assessment Mitesh Burgess is a 43 year old R handed female w PMH chronic migraine stopped Emgality half year ago, anxiety, depression, skull mass, seen in the [facility] for: 1. [...] with brain tumor clinic, seen in the [facility] for: 1. [...] on 06/24/18 EMG(NEURO/NI) Result Value Ref Range Service Operations Manager Please click on 'View Neuro EMG' in [...] which included preparing to see the patient, igde-nc-ddyp patient care, completing clinical documentation, obtaining and/or [...] study not recommended) documented in this encounter [facility] 11-11-2023 Telephone encounter Note Physician: Dr Reyes Call from pharmacy requesting refill. Please E-Scribe Last OV: 05/08/23 with Man Future OV: 11/11/23 with Man Requested Prescriptions Pending Prescriptions Disp Refills galcanezumab-gnlm (EMGALITY PEN) 120 mg/mL pen 1 mL 5 Sig: Inject 1 mL under the skin once every month. Do not shake. [facility] Phone #: [phone] Yessica Saunders [facility] 11-11-2023 Miscellaneous Notes Physician: Dr Reyes Call from pharmacy requesting refill. Please E-Scribe Last OV: 05/08/23 with Man Future OV: 11/11/23 with Man Requested Prescriptions Pending Prescriptions Disp Refills galcanezumab-gnlm (EMGALITY PEN) 120 mg/mL pen 1 mL 5 Sig: Inject 1 mL under the skin once every month. Do not shake. Pharmacy Name[facility] Phone #: [phone] Yessica Saunders documented in this encounter [facility] 10-28-2023 Hospital Discharg e instructions Patient Education [...] provider gives to you. In general: Take izty-ngo-errimuk and prescription medicines only as told by [...] provider. Document Revised: 12/19/2020 Document Reviewed: 12/19/2020 [employer]ones Patient Education 2022 [employer]. Follow Up Care 10/28/2023 17:26:09 With:Luis Armando FOWLER Address: [address] [facility] [address] [facility] [address] [place] [address]- Business (1) [facility] [address] [place] [address]- Business (1) When:10/31/2023 20:24:50 Comments:Call for diagnosis based follow up With:Pepe Alcazar Address: [address] [place] [address]- Business (1) When:Within 3 Day(s) [facility] 09-28-2023 Evaluation + Plan note Extrac brandon from: Title:ED Note Author:Dandy Ashton DO Date :09/28/23 Cough (R05.9: Cough, unspeci fied) Orders: brompheniramine/dextromethorphan/PSE, 5 mL, Oral, QID for cough and congestion, 200 mL, Refill(s) 0, [facility]/pharmacy #[id number], 160, cm, 09/28/23 1:17:00 EDT, Height/Length Dosing, 97.9, kg, 09/28/23 1:17:00 EDT, Weight Dosing dexamethasone, 10 mg = 2.5 mL, Injection, Oral, Once, Stop date 09/28/23 2:17:00 EDT, STAT, Start date 09/28/23 2:17:00 EDT, 09/28/23 2:17:00 EDT Influenza A&B Ag Rapid COVID Antigen ([facility]) XR Chest 2 Views [facility]2024 Hospital Discharge instructions Patient Education 09/28/2023 [...] Follow these instructions at home: Medicines Take hzcv-cuj-jvnciyq and prescription medicines only as told by [...] of a condition that needs treatment. Take sxkw-hxy-uwyvqxl and prescription medicines only as told by [...] provider. Document Revised: 07/13/2019 Document Reviewed: 07/13/2019 [employer]ones Patient Education 2022 [employer]. Follow Up Care 09/28/2023 01:07:11 With:Ppee Alcazar Address: [address] [place] [phone]- Business (1) When:10/05/2023 only if needed [facility]03-13-2024 Hospital Discharge instructions Patient Education 09/17/2023 [...] help with your condition: Managing pain Take pjlv-yzc-egiehaa and prescription medicines only as told by [...] provider. Document Revised: 11/22/2021 Document Reviewed: 11/22/2021 [employer]ones Patient Education 2022 [employer]. Follow Up Care 09/17/2023 20:39:37 With:Pepe Tannerdank Address: [address] [place], [place] [id number] Business (1) When:Within 3 Day(s) [facility]03-12-2024 Evaluation + Plan noteExtracted from: Title:ED [...] 09/17/23 20:50:00 EDT, Infuse over 61, minute(s) [facility]12-04-2023 Evaluation + Plan noteExtracted from: Title:Pain [...] reevaluation to discuss options PAOLA score: 36% [facility]11-01-2023 NoteHNO ID: [id number] Author: Stalin Reyes MD Service: ? Author Type: Physician Type: Progress Notes Filed: 05/08/2023 3:40 PM Note Text: [facility] Follow up/ Established patient visit Individuals who were included in, or assisted with the encounter were: Mitesh Burgess Stalin Reyes MD Chief Complaint/Issues: Mitesh Burgess is a 43 year old R handed female w PMH chronic migraine stopped Emgality half year ago, anxiety, depression, skull mass, seen in the [facility] for: Dizziness, headache and tremor Most Recent Neurological Assessment and Plan: Last Filed Values Date of Most Recent Assessment and Plan 12/17/22 Specialty General Neurology Assessment Mitesh Burgess is a 42 year old R handed female w PMH chronic migraine stopped Emgality half year ago, anxiety, depression, skull mass, seen in the [facility] for: 1. [...] Her pain management is absent [facility]. She has been on Lyrica 300 mg [...] intact. Fundi with normal (more content not included)...[id number] Instructions* Patient Instructions* Stalin Reyse MD - 05/08/2023 3:00 PM EDT --Reduce [...] up in 6 months [facility] History of Present illness Narrative* Stalin Reyes MD - 05/08/2023 2:21 PM EDT Images from the original note were not included. [facility] Follow up/ Established patient visit Individuals who were included in, or assisted with the encounter were: Mitesh Ky Ben Reyes MD Chief Complaint/Issues: Mitesh Burgess is a 43 year old R handed female w PMH chronic migraine stopped Emgality half year ago, anxiety, depression, skull mass, seen in the [facility] for: Dizziness, headache and tremor Most Recent Neurological Assessment and Plan: Last Filed Values Date of Most Recent Assessment and Plan 12/17/22 Specialty General Neurology Assessment Mitesh Burgess is a 42 year old R handed female w PMH chronic migraine stopped Emgality half year ago, anxiety, depression, skull mass, seen in the [facility] for: 1. [...] Her pain management is absent [facility]. She has been on Lyrica 300 mg [...] anxiety, depression, skull mass, seen in the [facility] for: 1. [...] on 06/24/18 EMG(NEURO/NI) Result Value Ref Range Service Operations Manager Please click on 'View Neuro EMG' in [...] which included preparing to see the patient, lfxr-kd-weji patient care, completing clinical documentation, obtaining and/or reviewing separately obtained history, performing a medically appropriate examination, counseling and educating the pat ient/family/caregiver, ordering medications, tests, or procedures, independently interpreting results (not separately reported), communicating results to the patient/family/caregiver, and care coordination (not separately reported). Stalin Reyes MDThere is no data to display for this encounter [facility]23 Note [id number] Evaluation + Plan noteExtracted from: [...] Refill of Lyrica sent. PAOLA score: 42% [facility]09-08-2023 Evaluation + Plan noteExtracted from: Title:ED [...] EDT, 500 mL/hr, Infuse over 1, hour(s) [facility]09-08-2023 Hospital Discharge instructions Patient Education 03/15/2023 [...] Follow these instructions at home: Medicines Take eobx-pvz-zpwnrzj and prescription medicines only as told by your health care provider. Ask your health care provider if the medicine prescribed to you: ?Requires you to avoid driving or using heavy machinery. ?Can cause constipation. You may need to take these actions to prevent or treat constipation: ?Drink enough fluid to keep your urine pale yellow. ?Take neqf-mem-yzghjsa or prescription medicines. ?Eat foods that are [...] provider. Document Revised: 10/16/2019 Document Reviewed: 08/06/2019 [employer] Patient Education 2022 [employer] Follow Up Care 03/14/2023 21:27:36 With:Pepe Alcazar Address: [address] [place] [phone]- Business (1) When:03/18/2023 Comments:Return to the emergency room if your headache recurs or any new symptoms. [facility]08-01-2023 History of Present illness Narrative* Nathanael Ryan MD - 02/05/2023 10:09 AM EDT Images from the original note were not included. [facility] New Patient Consultation Referred by Stalin Reyes [id number] [facility] [id number] Diagnosis: skull hemangioma Subjective History of Present [...] DATE OF EXAM: Jan 24 2023 2:18PM [facility] 0295 - MRI BRAIN WO/W IVCON / PROCEDURE REASON: Brain tumor (HCC) * * * * Physician Interpretation * * * * EXAMINATION: MRI BRAIN WO/W IVCON HISTORY: Brain tumor (HCC) Per the electronic medical record: PMH chronic migraine stopped Emgality half year ago, anxiety, depression, skull mass, seen in the [facility] for: Dizziness, [...] and is most compatible with intraosseous hemangioma. [facility] Transcribe Date/Time: Jan 24 2023 2:35P Dictated by : DONAL BURNS MD This examination was interpreted and the report reviewed and electronically signed by: DONAL BURNS MD on Jan 24 2023 2:42PM EST Data Review: Arnold Sanchez MD 10:26 AM 02/05/2023 [facility] Personal review of medical records: I reviewed the [facility] chart. Personal review of image, tracing or [...] which included preparing to see the patient, klvj-wp-zefx patient care, completing clinical documentation, obtaining and/or reviewing separately obtained history, counseling and educating the patient/family/caregiver, independently interpretin g results (not separately reported), and care coordination (not separately reported). Nathaneal Ryan MD February 05, 2023 10:46 AM documented in this [facility]23 Nurse Note* Ade aPtten Ma - 02/05/2023 9:40 AM EDT Additional intake questions: Has the patient had fever, nausea, vomiting, diarrhea, constipation, fatigue for > 1 week? No Does the patient have a decreased appetite? No Does patient want to see a Field Logistics Coordinator? No (yes to any of above refer patient to schedulers for dietitian appointment) ) Does patient have any new or increased numbness or tingling of extremities? No Is patient interested in fertility information? No Does patient need any prescription refills? No Does patient have an advanced directive in place? No, [facility] [facility] documented in this encounterOhio [facility] System07[facility]23 Telephone encounter Note * Telephone Encounter - Gabriela Bill APRN.CNP - 01/25/2023 8:01 AM EDT Time Frame: Next available Provider: Any Neurosurgeon Referring: Stalin Reyes Dx: 2.7 cm enhancing lesion, likely hemangioma Gabriela Bill APRN.CNP [facility] Work Phone: 1(414) 699-218207-21-2023 Miscellaneous Notes* Telephone Encounter - Gabriela Bill [...] and/or hospital have you been seen at? [facility] 6. Epic: Please allow up to 48-72 [...] is your expectation? appointment documented in this encounterOhio State [facility] System07-20-2023 History of Present illness Narrative* Ade Valderrama [...] 2023 TIME: 2:05 PM documented in this encounterOhio State Health System06-21-2023 Telephone encounter Note * Telephone Encounter - Gabriela Bill APRN.CNP - 12/26/2022 9:09 PM EDT Please obtain MRI report and any neurosurgical notes pertaining to diagnosis. Once received please re-triage. Gabriela Bill APRN.CNP [facility] Telephone encounter Note* Telephone Encounter - Lori [...] and/or hospital have you been seen at? [facility] 6. Epic: Please allow up to 48-72 [...] approval) 9. What is your expectation? appointment [facility] Work Phone: [phone]) 462-969206-15-2023 Miscellaneous Notes* Telephone Encounter - Keesha Tirado RN - 12/20/2022 3:58 PM EDT Ambulatory Pharmacy Prior Authorization Note Provider Intervention Required?: No- Pharmacy completed on your behalf. Rx Plan: Medicaid [facility] ([facility]) Drug: Emgality 120MG/ML auto-injectors (migraine) Cover My Meds Garcia: [id number] Determination: Approved Prior Authorization/Case #: n/a Prior [...] Prescriptions will now be processed through [facility] for determination of next steps. For questions relating to this submission, please contact [facility] at [phone] * Telephone Encounter - Keesha Tirado RN - 12/18/2022 4:55 PM EDT [facility] received prescription(s) for Emgality 120MG/ML auto-injectors (migraine). Benefits investigation was conducted, indicating that a prior authorization is required. PA was initiated and pending review through [employer]. All pertinent clinical information was submitted to insurance. CMM Garcia: [id number] Ordering Provider: MD Celestino Etienne Alisha, RN [facility] P: , F: documented in this encounterOhio State Health System06-12-2023 NoteHNO ID: [id number] Author: Stalin Reyes MD Service: ? Author Type: Physician Type: Progress Notes Filed: 12/17/2022 2:28 PM Note Text: [facility] Follow up/ Established patient visit Individuals who were included in, or assisted with the encounter were: Mitesh M Burgess Stalin Reyes MD Chief Complaint/Issues: Mitesh Burgess is a 42 year old R handed female w PMH chronic migraine stopped Emgality half year ago, anxiety, depression, skull mass, seen in the [facility] for: Dizziness, [...] anxiety, depression, skull mass, seen in the [facility] for: 1. [...] and depression PLAN --W (more content not included)...[facility] [id number] Note Attestation signed by Eduardo Clemente MD [...] available for review today. MRI report from [facility] was reviewed stating the [...] WIN MD Orthopedic Surgery, PGY-1 Ortho Pager [phone] 10/13/22 1:38 [facility]UnOhio[facility] Evaluation + Plan noteExtracted from: Title:Pain Managment Follow up Author:Ade Puente Date:10/01/22 Impression and Plan Patient is a 42-year-old female with a past medical history significant for lumbar neuritis, sacroiliitis, myalgia, left hip and knee pain. She also has some shoulder issues. She is seeing somebody at the [facility] for this. She has an [...] PM Scheduled Provider:Ade Talamantes PA-C Location:[facility] [place] Appointment Type:Pain Management - Follow Up (FT) [facility]02-21-2023 Note Attestation signed by Eduardo Clemente [...] available for review today. MRI report from [facility] was reviewed stating the [...] Jim Carranza MD Orthopedic Surgery, PGY-5 Pager: [phone] 08/28/22 11:42 AM By using the attestations [...] and I was otherwise immediately [facility] Evaluation + Plan noteExtracted from: Title:Pain [...] for reevaluation. Call clinic sooner if necessary. [facility]10-05-2022 Hospital Discharge instructions Patient Education 04/11/2022 [...] fried or sweet foods. General instructions Take vwhq-rbu-lvdrwbh and prescription medicines only as told by [...] 06/14/2003 Document Revised: 07/20/2019 Document Reviewed: 07/03/2018 [employer]ones Patient Education 2020 [employer]. 04/11/2022 17:19:39 Neuropathic Pain Neuropathic Pain Neuropathic [...] treated? Treatment for neuropathic pain may change house attendant time. You may need to try different treatment options or a combination of treatments. Some options include: Treating the underlying cause of the neuropathy, such as diabetes, kidney disease, or vitamin deficiencies. Stopping medicines that can cause neuropathy, such as chemotherapy. Medicine to relieve pain. Medicines may include: ?Prescription or svkz-avb-shlqegq pain medicine. ?Anti-seizure medicine. ?Antidepressant medicines. ?Pain-relieving [...] Follow these instructions at home: Medicines Take ejag-ork-cujrqbp and prescription medicines only as told by [...] as fried or sweet foods. ?Take an bkyu-xhs-esdnybd or prescription medicine for constipation. Lifestyle Have [...] 03/21/2005 Document Revised: 10/15/2019 Document Reviewed: 07/11/2018 [employer]ones Patient Education 2020 [employer]. Follow Up Care 04/11/2022 14:37:42 With:Chay Carter Address: [address] [place] [address] Business (1) When:04/12/2022 16:43:30 With:Jr Martines Address: [address] [place] [address]- Business (1) When:04/12/2022 16:43:28 With:Pepe Alcazar Address: [address] [place] [address], [place] [address]- Business (1) When:Within 3 Day(s) [facility]10-05-2022 Evaluation + Plan noteExtracted from: Title:ED [...] Date:05/18/2022 11:15:00 AM Scheduled Provider:Ade Talamantes PA-C Location:.[facility] Appointment Type:Pain Management - Follow Up (FT) [facility]10-03-2022 Evaluation + Plan noteExtracted from: Title:Pain [...] had some falls and went to the [facility] and has had a [...] Date:05/18/2022 11:15:00 AM Scheduled Provider:Ade Talamantes PA-C Location:FT.[facility] Appointment Type:Pain Management - Follow Up (FT) [facility]09-22-2022 NotePROCEDURE: XR SHOULDER LT 2V or > COMPARISON: None. HISTORY: Acute pain due to injury FINDINGS: BONES:No fracture, acute abnormality, or significant arthropathy. SOFT TISSUES:Negative. No visible soft tissue swelling. EFFUSION:None visible. OTHER: Negative. IMPRESSION: No acute abnormality Electronically authenticated by: EDUARDO CROSS Date: 2022-03-29 16:01[facility]08-05-2022 Evaluation + Plan noteExtracted from: Title:Pain [...] Date:03/26/2022 11:15:00 AM Scheduled Provider:Ade Talamantes PA-C Location:FT.[facility] Appointment Type:Pain Management - Follow Up (FT) [facility]05-13-2022 Evaluation + Plan noteExtracted from: Title:Pain [...] reevaluation. Call the clinic sooner if necessary. [facility] Future Appointments Appointment Date:11/17/2021 08:45:00 AM Scheduled Provider:Ade Talamantes PA-C Location:[facility] [place] Appointment Type:Pain Management - [facility] Future Appointments Appointment Date:02/09/2022 10:00:00 AM Scheduled Provider:Ade Talamantes PA-C Location:[facility] [place] Appointment Type:Pain Management - [facility] Future Appointments Appointment Date:03/26/2022 11:15:00 AM Scheduled Provider:Ade Talamantes PA-C Location:[facility] [place] Appointment Type:Pain Management - [facility] Future Appointments Appointment Date:03/26/2022 11:15:00 AM Scheduled Provider:Ade Talamantes PA-C Location:[facility] [place] Appointment Type:Pain Management - Follow Up (FT) Diagnostic Tests Pending * T3 Free 02/21/22 [facility] Future Appointments Appointment Date:04/30/2022 04:45:00 PM Scheduled Provider: Location:[facility] [place] Appointment Type:PT Eval (FT) Appointment Date:05/18/2022 11:15:00 AM Scheduled Provider:Ade Talamantes PA-C Location:[facility] [place] Appointment Type:Pain Management - Follow Up (FT) Diagnostic Tests Pending * Group A Strep [facility] Future Appointments Appointment Date:08/14/2022 10:00:00 AM Scheduled Provider: Location:[facility] Appointment Type:Surgery FT Appointment Date:08/31/2022 08:45:00 AM Scheduled Provider:Ade Talamantes PA-C Location:[facility] [place] Appointment Type:Pain Management - Follow Up ([facility] Future Appointments Appointment Date:08/31/2022 08:45:00 AM Scheduled Provider:Ade Talamantes PA-C Location:[facility] [place] Appointment Type:Pain Management - Follow Up (FT[facility] Future Appointments Appointment Date:10/01/2022 10:30:00 AM Scheduled Provider:Ade Talamantes PA-C Location:[facility] [place] Appointment Type:Pain Management - Follow Up ([facility] Future Appointments Appointment Date:06/10/2023 03:00:00 PM Scheduled Provider:Ade Talamantes PA-C Location:[facility] [place] Appointment Type:Pain Management - Follow Up (FT) [facility] note* Diagnosis 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 Brain tumor (HCC) Neoplasm of unspecified nature of brain documented in this encounter [facility] note* Diagnosis Radiculopathy, lumbar region- Primary Thoracic or lumbosacral neuritis or radiculitis, unspecified Intractable chronic migraine without aura and without status migrainosus Chronic migraine without aura, with intractable migraine, so stated, without mention of status migrainosus Essential tremor Essential and other specified forms of tremor Depression, unspecified depression type Anxiety Anxiety state, unspecified documented in this encounter [facility] note* Diagnosis Intractable chronic migraine without aura and without status migrainosus- Primary Chronic migraine without aura, with intractable migraine, so stated, without mention of status migrainosus Dizziness Dizziness and giddiness Depression, unspecified depression type Anxiety Anxiety state, unspecified Tardive dyskinesia Subacute dyskinesia due to drugs Drug-induced tremor Abnormal involuntary movements [facility] Skull lesion- Primary Disorder of bone and cartilage, unspecified documented in this encounter [facility] course Narrative No data available for this section [facility] No data available for this section [facility] No data available for this section [facility] Summary Purpose Family History No Family [...] COMPLEX 45 MINS Man, MD Stalin [id number] [facility] [place] [address] [place] [address] Referral ID Status Reason Start Date Expiration Date Visits Requested Visits Authorized [id number] Pending Review Auto-Generat ed Referral 11/11/2023 11/10/2024 1 1 Additional Source Comments INFORMATION SOURCE (unrecogn ized section and content) DATE CREATED AUTHOR 12/26/2017 [facility] DATE CREATED AUTHOR AUTHOR'S ORGANIZ ATION 10/13/2022 [facility] DATE CREATED AUTHOR AUTHOR'S ORGANIZ ATION 10/15/2022 [facility] DATE CREATED AUTHOR AUTHOR'S ORGANIZ ATION 11/12/2023 [facility] DATE CREATED AUTHOR AUTHOR'S ORGANIZ ATION [facility]/10[facility]2023 [facility] DATE CREATED AUTHOR AUTHOR'S ORGANIZ ATION 01/31/2024 [facility] DATE CREATED AUTHOR AUTHOR'S ORGANIZ ATION 03/03/2024 [facility] DATE CREATED AUTHOR AUTHOR'S ORGANIZ ATION 03/07/2024 [facility] Team (unrecognized sect ion and content) Telegraphic Instrument Supervisor Relationship Specialty Start Date End Date Pepe Alcazar MD PCP - General Family Medicine 05/10/15 Telegraphic Instrument Supervisor Relationship Specialty Start Date End Date Pepe Alcazar MD PCP - General Family Medicine 05/10/15 Telegraphic Instrument Supervisor Relationship Specialty Start Date End Date Pepe Alcazar MD PCP - General Family Medicine 05/10/15 Telegraphic Instrument Supervisor Relationship Specialty Start Date End Date Pepe Alcazar MD PCP - General Family Medicine 05/10/15 Telegraphic Instrument Supervisor Relationship Specialty Start Date End Date Pepe Alcazar MD PCP - General Family Medicine 05/10/15 Telegraphic Instrument Supervisor Relationship Specialty Start Date End Date Pepe Alcazar MD PCP - General Family Medicine 05/10/15 Telegraphic Instrument Supervisor Relationship Specialty Start Date End Date Pepe Alcazar MD PCP - General Family Medicine 05/10/15 Telegraphic Instrument Supervisor Relationship Specialty Start Date End Date Pepe Alcazar MD PCP - General Family Medicine 05/10/15 Telegraphic Instrument Supervisor Relationship Specialty Start Date End Date Pepe Alcazar MD PCP - General Family Medicine 05/10/15 Telegraphic Instrument Supervisor Relationship Specialty Start Date End Date Pepe Alcazar MD PCP - General Family Medicine 05/10/15 Source Comments (unrecognize d section and content) In the event this informatio n is protected by the Federal Confidentiality of Alcohol and Drug Abuse Patient Records regulations: The Federal rules restrict any use of the information to criminally investigate or prosecute any alcohol or drug abuse patient.[facility] SystemIn the event this information is protected by the Federal Confidentiality of Alcohol and Drug Abuse Patient Records regulations: The Federal rules restrict any use of the information to criminally investigate or prosecute any alcohol or drug abuse patient.[facility] SystemIn the event this information is protected by the Federal Confidentiality of Alcohol and Drug Abuse Patient Records regulations: The Federal rules restrict any use of the information to criminally investigate or prosecute any alcohol or drug abuse patient.[facility] SystemIn the event this information is protected by the Federal Confidentiality of Alcohol and Drug Abuse Patient Records regulations: The Federal rules restrict any use of the information to criminally investigate or prosecute any alcohol or drug abuse patient.[facility] SystemIn the event this information is protected by the Federal Confidentiality of Alcohol and Drug Abuse Patient Records regulations: The Federal rules restrict any use of the information to criminally investigate or prosecute any alcohol or drug abuse patient.[facility] SystemIn the event this information is protected by the Federal Confidentiality of Alcohol and Drug Abuse Patient Records regulations: The Federal rules restrict any use of the information to criminally investigate or prosecute any alcohol or drug abuse patient.[facility] SystemIn the event this information is protected by the Federal Confidentiality of Alcohol and Drug Abuse Patient Records regulations: The Federal rules restrict any use of the information to criminally investigate or prosecute any alcohol or drug abuse patient.[facility] SystemIn the event this information is protected by the Federal Confidentiality of Alcohol and Drug Abuse Patient Records regulations: The Federal rules restrict any use of the information to criminally investigate or prosecute any alcohol or drug abuse patient.[facility] SystemIn the event this information is protected by the Federal Confidentiality of Alcohol and Drug Abuse Patient Records regulations: The Federal rules restrict any use of the information to criminally investigate or prosecute any alcohol or drug abuse patient.[facility] SystemIn the event this information is protected by the Federal Confidentiality of Alcohol and Drug Abuse Patient Records regulations: The Federal rules restrict any use of the information to criminally investigate or prosecute any alcohol or drug abuse patient.[facility] Reason for Visit (unrecogniz ed section and content) Reason Comments Insurance Authorization Emgality 120MG/M L auto-injectors (migraine) Reason Comments Radiology MRI Reason Comments New Patient Specialty Diagnoses / Procedures Referred By Contac t Referred To Contact Neurosurgery Diagnoses Brain tumor (HCC) Procedures CONSULT TO NEUROSURGERY OFFICE/OUTPATIENT NEW HIGH MDM 60-74 MINUTES Stalin Reyes MD [address] [place] [address] Referral ID Status Reason Start Date Expiration Date V isits Requested Visits Authorized [id number] Closed PCP Requested Referral 12/17/2022 12/17/2023 1 [...] BE BASED ON THE PRIMARY CLINICAL RECORDS. [facility]. provides no warranty or guarantee of the accuracy or completeness of information in this document.
== END 2024-03-13 12:14 | disposition home or self-care (01) ==
LOC: RAD 12:14
PROVIDERS: PCP Family Medicine; Visit Provider Family Medicine
DX: R10.30 Lower abdominal pain, unspecified (principal)
CPT/HCPCS: 73523

== ENCOUNTER 2024-03-31 11:00 | Outpatient (OUT) | payer OTHER, SELFPAY ==
[2024-03-31 11:32] LABS: Bilirubin Urine SMALL (NEGATIVE); Blood Urine NEGATIVE (NEGATIVE); Clarity Urine CLEAR (CLEAR); Color Urine DK. YELLOW (YELLOW); Glucose Urine UA NEGATIVE (NEGATIVE); Ketones Urine NEGATIVE (NEGATIVE); Leukocyte Esterase Urine NEGATIVE (NEGATIVE); Nitrite Urine NEGATIVE (NEGATIVE); Protein Urine NEGATIVE (NEG/TRACE); Specific Gravity Urine >=1.030 (1.005-1.025); Urobilinogen Urine 0.2 EU/dL (0.2-1.0)
[2024-03-31 11:41] LABS: Bacteria Urine TRACE #/HPF (NONE SEEN); Cast Seen? NONE SEEN #/LPF (NONE SEEN); Crystals Seen? None Seen #/HPF (None Seen); Mucus Urine MODERATE (NONE SEEN); RBC Urine 0-2 #/HPF (0-2); Squamous Epithelial Cell Urine MODERATE #/LPF (NONE/RARE); WBC Urine 0-2 #/HPF (NONE SEEN)
== END 2024-03-31 11:01 | disposition home or self-care (01) ==
LOC: LAB 11:02
PROVIDERS: PCP Family Medicine; Visit Provider Family Medicine
DX: N39.0 Urinary tract infection, site not specified (principal)
CPT/HCPCS: 81001; 87086

== ENCOUNTER 2025-02-18 11:43 | Outpatient (OUT) | payer OTHER, SELFPAY ==
--- OUTSIDE RECORDS SUMMARY | 2025-02-18 11:55 | XMS_ITS | CCD ---
Author Organization [facility] Care Team Providers Care Telephone Sales Agent Name Role Phone SELF, REFERRED Unavailable Unavailable SELF, REFERRED Unavailable Unavailable EDUARDO HERBERT Unavailable Unavailable EDUARDO HERBERT Unavailable Unavailable Pepe Alcazar Primary Care Physician INGE .DR CANTU Attending Unavailable HOY ., DR CANTU [...] Unavailable BRUCE ., MARANDA Admitting Unavailable BRUCE .MARANDA Attending Unavailable AMERICA, DR EDUARDO Reynoso Consulting [...] Primary Care Unavailable EMORY, MIRANDA Admitting Unavailable EMORY, MIRANDA Consulting Unavailable HOY ., DR CANTU Consulting Unavailable HOY ., DR CANTU Admitting Unavailable HOY ., DR CANTU Primary Care Unavailable HOY ., DR CANTU Attending Unavailable EMORY, MIRANDA Consulting Unavailable MIRANDA CAT Attending Unavailable EMORY, MIRANDA Admitting Unavailable HOY [...] CLEMENTE Attending Unavailable EDUARDO CLEMENTE Attending Unavailable Pepe Alcazar MD Primary Care Provider [phone] Pepe Alcazar MD Primary Care Provider [phone] MAN, STALIN Attending Unavailable HOY, PEPE M Referring Unavailable HOY, PEPE M Primary Care Unavailable INGE, PEPE M Primary Care Unavailable MAN, SHUMEI Attending Unavailable HODank, PEPE M Primary Care Unavailable MAN, SHUMEI Attending Unavailable HODank, PEPE M Primary Care Unavailable YUE, NATHANAEL Referring Unavailable GABRIELA BILL Attending Unavailable PEPE ALCAZAR M Primary Care Unavailable YUE, NATHANAEL Referring Unavailable Pepe Alcazar MD Primary Care Provider [phone] MIRANDA JOSE Attending Unavailable TALAMANTES, ADE Referring Unavailable GARCIA, GUSTAVO Attending Unavailable TALAMANTES, ADE Referring Unavailable GARCIA, GUSTAVO Attending Unavailable TALAMANTES, ADE Referring Unavailable GARCIA, GUSTAVO Attending Unavailable TALAMANTES, ADE Referring Unavailable GARCIA, GUSTAVO Attending Unavailable TALAMANTES, ADE Referring Unavailable MIRANDA JOSE Attending Unavailable TALAMANTES, ADE Referring Unavailable PLEASNICK, TRAN Samuel Attending Unavailab le TALAMANTES, ADE Referring Unavailable GARCIA, GUSTAVO Attending Unavailable TALAMANTES, ADE Referring Unavailable GARCIA, GUSTAVO Attending Unavailable TALAMANTES, ADE Referring Unavailable GARCIA, GUSTAVO Attending Unavailable TALAMANTES, ADE Referring Unavailable PLEASNICK, TRAN A Attending Unavailab le TALAMANTES, ADE Referring Unavailable PLEASNICK, TRAN A Attending Unavailab le TALAMANTES, ADE Referring Unavailable Poli, Dandy S. Attending Unavailable Poli, DO Dandy S. Attending Unavailable Talamantes, Ade Attending Unavailable Hoy, Pepe Referring Unavailable Talamantes, Ade Admitting Unavailable Talamantes, Ade Attending Unavailable NONE, XXXX Referring Unavailable Talamantes, Ade Admitting Unavailable Talamantes, Ade Attending Unavailable Talamantes, Ade Referring Unavailable SOTOCHRISTIE Admitting Unavailable SOTO, CHRISTIE Attending Unavailable Ulises Kaur Attending Unavailable CHELE EPSTEIN Attending Unavailable CHELE EPSTEIN Attending Unavailable Rosalio Dan Attending Unavailable Pepe Alcazar MD Primary Care Provider [phone] Devon Romo MD Attending Provider Emily Mcgill APRN Emergency Provider [phone] Emily Mcgill Admitting Unavailable Inge, Pepe M Primary Care Unavailable Emily Mcgill Attending Unavailable Devon Romo Attending Unavailab Devon Mosley Admitting Unavailab Pepe Hardy M Primary Care Unavailable Dandy Ashton Attending Unavailable Talamantes, Ade Attending Unavailable Hoy, Pepe Referring Unavailable Talamantes, Ade Admitting Unavailable Talamantes, Ade Attending Unavailable Hoy, Pepe Referring Unavailable Talamantes, Ade Admitting Unavailable Talamantes, Ade Attending Unavailable Talamantes, Ade Admitting Unavailable Hoy, Pepe Referring Unavailable Joaquin Matos Referring Unavailable Joaquin Matos Attending Unavailable Talamantes, Ade Attending Unavailable Talamantes, Ade Admitting Unavailable Talamantes, Aed Referring Unavailable Allergies Allergy Classification Reported Allergen(s) Allergy Type Date of Onset Reaction(s) Facility (7 sources) clindamycin; Translations: [CLINDAMYCIN] Drug Allergy 8 AOF, Unknown Reaction [facility] Repository (9 sources) codeine; Translations: [CODEINE] Drug Allergy 4 AOF, Hives [facility] Repository (20 sources) Adhesive bandage; Translations: [Adhesive Bandage] Drug allergy rash [facility] (20 sources) Clindamycin; Translations: [clindamycin] Drug Allergy Itching [facility] (20 sources) Codeine; Translations: [codeine] Drug Allergy 5 Unknown [facility] (20 sources) Latex; Translations: [latex] Drug allergy 5 rash [facility] (2 sources) Clindamycin Drug Allergy 7 [facility] Repository (16 sources) natural latex rubber; Translations: [LATEX, NATURAL RUBBER] Propensity to adverse reactions to drug (disorder) 8 Itching [facility] Repository (1 source) OTHER; Translations: [OTHER] Propensity to adverse reactions (disorder) 7 [facility] Repository (15 sources) Adhesive Tape; Translations: [ADHESIVE TAPE (ROSINS)] Allergy to substance 8 Itching [facility] (15 sources) Seasonal allergy; Translations: [SEASONAL ALLERGIES] Propensity to adverse reactions 5 Unknown [facility] (1 source) Clindamycin Drug Allergy 5 [facility] Repository (1 source) Codeine Drug Allergy 5 [facility] Repository Medications Current Medications Medication Drug Class(es) Dates Sig (Normalized) Sig (Original) 24 HR deutetrabenazine 12 MG Extended Release Oral Tablet [Austedo] (11 sources) Start: 09-17-2023 take 1 tablet by mouth once daily Austedo XR 12 mg oral tablet, extended release 1 tab, Oral, Daily, Refills(s) 0 Start Date: 09/17/23 Status: Ordered 24 HR deutetrabenazine 24 MG Extended Release Oral Tablet [Austedo] (11 sources) Start: 09-17-2023 take 1 tablet by [...] for 3 day(s), 10 tab(s), Refill(s) 0, [facility]/pharmacy #[id number], 160, cm, 10/28/23 17:43:00 EDT, Height/Length Dosing, 96.8, kg, 10/28/23 17:43:00 EDT, Weight Dosing Start Date: 10/28/23 Stop Date: 10/31/23 Status: Ordered AUSTEDO XR 12 mg tablet (6 sources) Start: 09-11-2023 AUSTEDO XR 12 mg tablet 09/11/2023 Active Start: 09-11-2023 AUSTEDO XR 12 mg tablet AUSTEDO XR 24 mg tablet (6 sources) Start: 09-11-2023 AUSTEDO XR 24 mg tablet 09/11/2023 Active Start: 09-11-2023 AUSTEDO XR 24 mg tablet azithromycin 250 mg oral tablet (2 sources) Macrolide Antimicrobial Start: 06-05-2024 End: 06-10-2024 Zithromax Z-Olvin 250 mg oral tablet = 1 packet(s), Oral, As Directed, as directed on package labeling, X 5 day(s), # 6 tab(s), Refills(s) 0, Pharmacy: [facility]/pharmacy #[id number], 161, cm, 06/05/24 12:33:00 EST, Height/Length Dosing, 99.2, kg, 06/05/24 12:33:00 EST, Weight Dosing Start Date: 06/05/24 Stop Date: 06/10/24 Status: Ordered benzonatate 100 mg oral capsule (2 sources) Non-narcotic Antitussive Start: 06-05-2024 End: 06-12-2024 take 1 capsule by mouth three times daily Tessalon 100 mg Cap 100 mg = 1 cap(s), Oral, TID, X 7 day(s), # 21 cap(s), Refills(s) 0, Pharmacy: [facility]/pharmacy #[id number], 161, cm, 06/05/24 12:33:00 EST, Height/Length Dosing, 99.2, kg, 06/05/24 12:33:00 EST, Weight Dosing Start Date: 06/05/24 Stop Date: 06/12/24 Status: Ordered brompheniramine maleate 0.4 mg/ml / dextromethorphan hydrobromide 2 mg/ml / pseudoephedrine hydrochloride 6 mg/ml oral solution (7 sources) alpha-Adrenergic Agonist, Uncompetitive S-xrlmyd-D-asparta te Receptor Antagonist, Sigma-1 Agonist Start: 06-12-2024 take 5 mL by mouth every six hours for cough and congestion Bromfed DM oral syrup 5 mL, Oral, q6hr for cough and congestion, 120 mL, Refill(s) 0, [facility]/pharmacy #[id number], 160, cm, 06/12/24 21:06:00 EST, Height/Length Dosing, 99.6, kg, 06/12/24 21:06:00 EST, Weight Dosing Start Date: 06/12/24 Status: Ordered Start: 09-28-2023 take 5 mL by mouth f our times daily for cough and congestion Bromfed DM oral syrup 5 mL, Oral, QID for cough and congestion, 200 mL, Refill(s) 0, [facility]/pharmacy #[id number], 160, cm, 09/28/23 1:17:00 EDT, Height/Length Dosing, 97.9, kg, 09/28/23 1:17:00 EDT, Weight Dosing Start Date: 09/28/23 Status: Ordered busPIRone hydrochloride 30 m g oral tablet (20 sources) Start: 03-04-2018 busPIRone HCl 30 mg tablet twice daily. 03/04/2018 Active Start: 08-04-2016 take 2 tablets by mo [facility] twice daily busPIRone 15 mg Tab 30 mg = 2 tab(s), Oral, BID, Refills(s) 0, Anxiety Start Date: 08/04/16 Status: Ordered Repeat number: 1 Start: 08-04-2016 take 1 tablet by [facility] three times daily busPIRone 15 mg [...] Ordered Start: 05-18-2022 take 1 capsule by [facility] once daily Vraylar 1.5 mg oral capsule 1.5 mg = 1 cap(s), Oral, Daily, Refills(s) 0 Start Date: 05/18/22 Status: Ordered Zyrtec (20 sources) Histamine-1 Receptor Antagonist Start: 10-30-2015 Zyrtec 10 mg, Oral, Daily, PRN Allergy symptoms, Refills(s) 0 Start Date: 10/30/15 Status: Ordered Repeat number: 1 Start: 04-22-2015 take 10 mg by mouth once daily as needed Zyrtec 10 mg, Oral, Daily, PRN Allergy symptoms, Refills(s) 0 Start Date: 10/30/15 Status: Ordered cholecalciferol 0.125 mg oral capsule (4 sources) Vitamin D take 1 capsule by mouth once daily Cholecalciferol, Vitamin D3, 125 mcg (5,000 unit) cap Take 5,000 Units by mouth once daily. Active desvenlafaxine 100 mg oral tablet (20 sources) Serotonin and Norepinephrine Reuptake Inhibitor Start: 021 take 2 tablets by mouth once daily desvenlafaxine 100 mg Tab- TAKE 2 TABLETS BY MOUTH EVERY DAY Start Date: 03/07/21 Status: Ordered Start: 12-04-2016 take 2 tablets by [facility] once daily Pristiq 100 mg Tab-ER 200 mg = 2 tab(s), Oral, Daily, # 30 tab(s), Refills(s) 0, Depression Start Date: 12/04/16 Status: Ordered Quantity: 30.0 Unit: tab(s) Repeat number: 1 Start: 12-04-2016 take 2 tablets by [facility] once daily Pristiq 100 mg Tab-ER 200 mg = 2 tab(s), Oral, Daily, # 30 tab(s), Refills(s) 0, Depression Start Date: 12/04/16 Status: Ordered Comment on above: once daily. Takes 2 tabs diclofenac sodium 75 mg delayed release oral tablet (10 sources) Nonsteroidal Anti-inflammatory Drug Start: 4 take 1 tablet by mouth twice daily diclofenac sodium 75 mg Oral EC Tab 75 mg = 1 tab(s), Oral, BID, Refills(s) 0 Start Date: 04/06/24 Status: Ordered Start: 01-23-2023 take 1 tablet by [facility] once daily diclofenac, EC, (VOLTAREN) 75 mg EC tablet Take 75 mg by mouth once daily. 01/23/2023 Active Comment on above: Take 75 mg by mouth once daily. dicyclomine hydrochloride 20 mg oral tablet (14 sources) Anticholinergic Start: 01-05-20 25 take 1 tablet by mouth four times daily dicyclomine 20 mg Tab TAKE 1 TABLET BY MOUTH FOUR TIMES A DAY FOR 30 DAYS Start Date: 01/04/25 Status: Ordered Repeat number: 1 dicyclomine (SOHEILA TYL) 10 mg capsule Take 10 mg by mouth. Active Comment on above: Take 10 mg by mouth. fluticasone / vilanterol (12 sources) Corticosteroid, beta2-Adrenergic Agonist Start: 2 take 1 puff(s) by inhalation once daily Breo Ellipta 100 mcg-25 mcg inhalation powder 1 puff(s), Inhalation, Daily, Refill(s) 2, 30 dose unit Start Date: 09/29/21 Status: Ordered 1 ml galcanezumab-gnlm 120 mg/ml auto-injector (20 sources) Start: 4 inject 120 mg by subcutaneous injection every month Emgality Prefilled Pen 120 mg/mL subcutaneous solution 120 mg, SubCutaneous, qMonth, Refills(s) 0 Start Date: 04/06/24 Status: Ordered Start: 12-17-2022 End: 11-08-2023 inject 1 mL by subcutaneous injection every month galcanezumab-gnlm (EMGALITY PEN) 120 mg/mL pen Inject 1 mL under the skin once every month. Do not shake. 1 mL 5 12/17/2022 11/08/2023 Discontinued Comment on above: Inject 1 mL under th e skin once every month. Do not shake. hydrOXYzine pamoate 25 mg oral capsule (18 sources) Antihistamine Start: 3 take 1 capsule by mouth four times daily as needed for anxiety hydrOXYzine pamoate 25 mg Cap 25 mg = 1 cap(s), Oral, QID, PRN for anxiety, # 40 cap(s), Refills(s) 0 Start Date: 10/01/22 Status: Ordered Quantity: 40.0 Unit: cap(s) Repeat number: 1 lamoTRIgine 150 mg oral tablet (20 sources) Mood Stabilizer, Anti-epileptic Agent Start: 4 take 1 tablet by mouth at bedtime Lamictal 150 mg Tab 150 mg = 1 tab(s), Oral, Bedtime, Refills(s) 0 Start Date: 04/06/24 Status: Ordered Repeat number: 1 Start: 11-11-2018 lamoTRIgine (L AMICTAL) 25 mg tablet daily at bedtime. Takes 2 tabs along with 200 mg 11/11/2018 Active Start: 05-10-2015 lamoTRIgine (L AMICTAL) 200 mg tablet 05/10/2015 Active Comment on above: daily at bedtime. Ta kes 2 tabs along with 200 mg levothyroxine sodium 0.1 mg oral tablet (20 sources) l-Thyroxine Start: 5 take 1 tablet by mouth once daily levothyroxine 100 mcg (0.1 mg) Tab TAKE 1 TABLET BY MOUTH EVERY DAY FOR 90 DAYS Start Date: 01/04/25 Status: Ordered Repeat number: 1 Start: 12-07-2022 take 1 tablet by mouth once le vothyroxine (SYNTHROID) 75 mcg tablet Take 1 tablet by mouth every afternoon. 12/07/2022 Active Start: 03-07-2021 take 1 tablet by [facility] once daily levothyroxine 50 mcg (0.05 mg) Tab 50 mcg = 1 tab(s), Oral, Daily, TAKE 1 TABLET BY MOUTH EVERY DAY Start Date: 03/07/21 Status: Ordered take 1 tablet by [facility] once daily levothyroxine (SYNTHROID) 100 mcg tablet Take 100 mcg by mouth once daily. Active Comment on above: Take 1 tablet by [facility] every afternoon. liothyronine sodium 0.025 mg oral tablet (20 sources) l-Triiodothyronine Start: 5 take 1 tablet by mouth once daily, then take 0.5 tablet by mouth once daily liothyronine 25 mcg Tab TAKE 1 TABLET ORALLY ON ODD DAYS AND 1/2 TABLET ON EVEN DAYS 90 DAYS Start Date: 01/04/25 Status: Ordered Repeat number: 1 Start: 04-06-2024 take 1 tablet by [facility] once daily liothyronine 25 mcg Tab 25 mcg = 1 tab(s), Oral, Daily, Refills(s) 0 Start Date: 04/06/24 Status: Ordered Start: 01-27-2023 take 4 tablets by mouth once l iothyronine (CYTOMEL) 5 mcg tablet Take 4 tablets by mouth every afternoon. 01/27/2023 Active Start: 03-07-2021 LIOTHYRONINE S OD 5 MCG TAB LIOTHYRONINE SOD 5 MCG TAB Start Date: 03/07/21 Status: Ordered take 1 tablet by [facility] once daily liothyronine (CYTOMEL) 25 mcg tablet Take 25 mcg by mouth once daily. Active Comment on above: Take 4 tablets by mo ut every afternoon. lumateperone 42 mg oral capsule (13 sources) Start: 10-20-19 take 1 capsule by mouth once daily Caplyta 42 mg oral capsule 42 mg = 1 cap(s), Oral, Daily, Refills(s) 0 Start Date: 04/06/24 Status: Ordered magnesium oxide 400 mg oral tablet (8 sources) Start: 05-08-20 take 1 tablet by mouth twice daily magnesium oxide (MAG-OX) 400 mg (241.3 mg magnesium) tablet Take 1 tablet by mouth two times a day. 05/08/2023 Active Comment on above: Take 1 tablet by [facility] two times a day. meclizine hydrochloride 12.5 mg oral tablet (13 sources) Antiemetic Start: 12-18-19 take 1 tablet by mouth every twelve hours as needed meclizine (ANTIVERT) 12.5 mg tab Take 1 tablet by mouth twice daily as needed. 60 tablet 12/17/2022 Active Comment on above: Take 1 tablet by [facility] twice daily as needed. meloxicam 15 mg oral tablet (1 source) Nonsteroidal Anti-inflammatory Drug Start: 01-05-20 take 1 tablet by mouth once daily meloxicam 15 mg Tab 15 mg = 1 tab(s), Oral, Daily, # 30 tab(s), Refills(s) 0 Start Date: 01/04/25 Status: Ordered Quantity: 30.0 Unit: tab(s) Repeat number: 1 methocarbamol 500 mg oral tablet (13 sources) Muscle Relaxant Start: 01-05-20 methocarbamol 500 mg Tab Refills(s) 0 Start Date: 01/04/25 Status: Ordered Repeat number: 1 Start: 06-10-2023 End: 09-08-2023 take 1 tablet by mouth three times daily as needed for muscle spasms methocarbamol 500 mg Tab 500 mg = 1 tab(s), Oral, TID, PRN Spasm, X 30 day(s), # 90 tab(s), Refills(s) 2, Pharmacy: [facility]/pharmacy #[id number], 161, cm, 06/10/23 15:18:00 EST, Height/Length Dosing, 95.2, kg, 04/19/23 8:29:00 EDT, Weight Dosing Start Date: 06/10/23 Stop Date: 09/08/23 Status: Ordered Start: 05-18-2022 End: 08-16-2022 take 1 tablet by mouth three times daily as needed for muscle spasms methocarbamol 500 mg Tab 500 mg = 1 tab(s), Oral, TID, PRN Spasm, X 30 day(s), # 90 tab(s), Refills(s) 2, Pharmacy: [facility]/pharmacy #[id number], 158, cm, 05/18/22 11:25:00 EST, Height/Length Dosing, 91.6, kg, 05/18/22 11:25:00 EST, Weight Dosing Start Date: 05/18/22 Stop Date: 08/16/22 Status: Ordered Start: 02-09-2022 End: 04-10-2022 take 1 tablet by mouth three times daily as needed for muscle spasms methocarbamol 500 mg Tab 500 mg = 1 tab(s), Oral, TID, PRN Spasm, X 30 day(s), # 90 tab(s), Refills(s) 1, Pharmacy: [facility]/pharmacy #[id number], 158, cm, 02/09/22 10:19:00 EDT, Height/Length Dosing, 90.7, kg, 02/09/22 10:19:00 EDT, Weight Dosing Start Date: 02/09/22 Stop Date: 04/10/22 Status: Ordered Start: 11-17-2021 End: 12-17-2021 take 1 tablet by mouth three times daily as needed for muscle spasms methocarbamol 500 mg Tab 500 mg = 1 tab(s), Oral, TID, PRN Spasm, X 30 day(s), # 90 tab(s), Refills(s) 0, Pharmacy: [facility]/pharmacy #[id number], 158, cm, 11/17/21 9:03:00 EDT, Height/Length Dosing, 88, kg, 09/29/21 8:57:00 EDT, Weight Dosing Start Date: 11/17/21 Stop Date: 12/17/21 Status: Ordered Start: 09-29-2021 take 1 tablet by [facility] three times daily as needed for muscle spasms methocarbamol 500 mg Tab 500 mg = 1 tab(s), Oral, TID, PRN Spasm, # 30 tab(s), Refills(s) 0, Pharmacy: [facility]/pharmacy #[id number], 160, cm, 09/29/21 8:57:00 EDT, Height/Length Dosing, 88, kg, 09/29/21 8:57:00 EDT, Weight Dosing Start Date: 09/29/21 Status: Ordered Multi Vitamins oral tablet (20 sources) Start: 09-10-2017 take 1 tablet by mouth once daily Multi Vitamins oral tablet 1 tab(s), Oral, Daily, Refill(s) 0, Prophylaxis Start Date: 09/10/17 Status: Ordered Repeat number: 1 Start: 09-10-2017 take 1 tablet by [facility] once daily Multi Vitamins oral tablet 1 tab(s), Oral, Daily, Refill(s) 0, Prophylaxis Start Date: 09/10/17 Status: Ordered Multivitamin preparation (4 sources) Start: 09-10-2017 take 1 tablet by mouth once daily multivitamin (MULTIPLE VITAMINS ORAL) Take 1 tablet by mouth once daily. 09/10/2017 Active Start: 09-10-2017 take 1 tablet by [facility] once daily multivitamin (MULTIPLE VITAMINS ORAL) Take 1 tablet by mouth once daily. 0 09/10/2017 Active nabumetone 750 mg oral tablet (1 source) Nonsteroidal Anti-inflammatory Drug Start: 08-20-2024 take 1 tablet by mouth twice daily Nabumetone 750 mg tablet Active 750 MG PO Twice daily August 20, 2024 12:00am ondansetron 4 mg disintegrating oral tablet (13 sources) Serotonin-3 Receptor Antagonist Start: 02-17-2018 ondansetron orally disintegrating (ZOFRAN ODT) 4 mg disintegrating tablet as needed. 02/17/2018 Active Comment on above: as needed. Potassium Chloride (14 sources) Start: 04-09-2022 potassium chloride 40 mEq, Oral, Daily, Refills(s) 0 Start Date: 04/09/22 Status: Ordered predniSONE 20 mg oral tablet (2 sources) Start: 06-05-2024 End: 06-10-2024 take 2 tablets by mouth once daily predniSONE 20 mg Tab 40 mg = 2 tab(s), Oral, Daily, X 5 day(s), # 10 tab(s), Refills(s) 0, Pharmacy: [facility]/pharmacy #[id number], 161, cm, 06/05/24 12:33:00 EST, Height/Length Dosing, 99.2, kg, 06/05/24 12:33:00 EST, Weight Dosing Start Date: 06/05/24 Stop Date: 06/10/24 Status: Ordered pregabalin 300 mg oral capsule (20 sources) Start: 01-04-2025 take 1 capsule by mouth twice daily pregabalin 300 mg Cap 300 mg = 1 cap(s), Oral, BID, # 60 cap(s), Refills(s) 2, Pharmacy: [facility]/pharmacy #[id number], 160, cm, 01/04/25 15:47:00 EDT, Height/Length Dosing, 94.3, kg, 01/04/25 15:47:00 EDT, Weight Dosing Start Date: 01/04/25 Status: Ordered Quantity: 60.0 Unit: cap(s) Repeat number: 3 Indications: Radiculopathy, lumbar region; Start: 06-23-2024 End: 08-22-2024 take 1 capsule by mouth twice daily pregabalin 225 mg oral capsule 225 mg = 1 cap(s), Oral, BID, X 30 day(s), # 60 cap(s), Refills(s) 1, [id number], cm, 06/12/24 21:06:00 EST, Height/Length Dosing, 99.6, kg, 06/12/24 21:06:00 EST, Weight Dosing Start Date: 06/23/24 Stop Date: 08/22/24 Status: Ordered Start: 05-20-2024 End: 06-19-2024 take 1 capsule by mouth twice daily Lyrica 225 mg oral capsule 225 mg = 1 cap(s), Oral, BID, X 30 day(s), # 60 cap(s), Refills(s) 0, [id number] 160, cm, 04/06/24 15:00:00 EDT, Height/Length Dosing, 94, kg, 04/06/24 15:00:00 EDT, Weight Dosing Start Date: 05/20/24 Stop Date: 06/19/24 Status: Ordered Start: 05-08-2023 End: 04-08-2025 take 1 capsule by mouth twice daily Lyrica 150 mg Cap 150 mg = 1 cap(s), Oral, BID, # 60 cap(s), Refills(s) 1, Pharmacy: [facility]/pharmacy #[id number], 161, cm, 06/10/23 15:18:00 EST, Height/Length Dosing, 95.2, kg, 04/19/23 8:29:00 EDT, Weight Dosing Start Date: 06/10/23 Status: Ordered Start: 05-03-2023 take 1 capsule by mo [facility] twice daily pregabalin 300 mg Cap 300 mg = 1 cap(s), Oral, BID, # 60 cap(s), Refills(s) 1, Pharmacy: [facility]/pharmacy #[id number], 161, cm, 04/19/23 8:29:00 EDT, Height/Length Dosing, 95.2, kg, 04/19/23 8:29:00 EDT, Weight Dosing Start Date: 05/03/23 Status: Ordered Start: 10-01-2022 take 1 capsule by [facility] twice daily pregabalin 300 mg Cap 300 mg = 1 cap(s), Oral, BID, # 60 cap(s), Refills(s) 1, Pharmacy: [facility]/pharmacy #[id number], 158, cm, 10/01/22 10:45:00 EDT, Height/Length Dosing, 90, kg, 10/01/22 10:45:00 EDT, Weight Dosing Start Date: 10/01/22 Status: Ordered Start: 08-31-2022 take 1 capsule by [facility] twice daily pregabalin 225 mg oral capsule 225 mg = 1 cap(s), Oral, BID, # 60 cap(s), Refills(s) 2, Pharmacy: [facility]/pharmacy #[id number], 158, cm, 08/31/22 9:15:00 EST, Height/Length Dosing, 91.6, kg, 05/18/22 11:25:00 EST, Weight Dosing Start Date: 08/31/22 Status: Ordered Start: 05-18-2022 End: 11-13-2022 take 1 capsule by mouth twice daily pregabalin 200 mg Cap 200 mg = 1 cap(s), Oral, BID, X 30 day(s), # 60 cap(s), Refills(s) 2, Pharmacy: [facility]/pharmacy #[id number], 158, cm, 08/14/22 9:29:00 EST, Height/Length Dosing, 91.6, kg, 05/18/22 11:25:00 EST, Weight Dosing Start Date: 08/15/22 Stop Date: 11/13/22 Status: Ordered Start: 04-09-2022 take 1 capsule by [facility] twice daily Lyrica 150 mg Cap 150 mg = 1 cap(s), Oral, BID, # 60 cap(s), Refills(s) 1, Pharmacy: [facility]/pharmacy #[id number], 158, cm, 04/09/22 14:30:00 EDT, Height/Length Dosing, 90.7, kg, 02/09/22 10:19:00 EDT, Weight Dosing Start Date: 04/09/22 Status: Ordered Start: 02-09-2022 take 1 capsule by [facility] twice daily Lyrica 100 mg Cap 100 mg = 1 cap(s), Oral, BID, # 60 cap(s), Refills(s) 1, Pharmacy: [facility]/pharmacy #[id number], 158, cm, 02/09/22 10:19:00 EDT, Height/Length Dosing, 90.7, kg, 02/09/22 10:19:00 EDT, Weight Dosing Start Date: 02/09/22 Status: Ordered Start: 11-17-2021 take 1 capsule by [facility] twice daily Lyrica 100 mg Cap 100 mg = 1 cap(s), Oral, BID, # 60 cap(s), Refills(s) 1, Pharmacy: [facility]/pharmacy #[id number], 158, cm, 11/17/21 9:03:00 EDT, Height/Length Dosing, 88, kg, 09/29/21 8:57:00 EDT, Weight Dosing Start Date: 11/17/21 Status: Ordered Start: 09-29-2021 take 1 capsule by [facility] twice daily Lyrica 100 mg Cap 100 mg = 1 cap(s), Oral, BID, # 60 cap(s), Refills(s) 1, Pharmacy: [facility]/pharmacy #[id number], 160, cm, 09/29/21 8:57:00 EDT, Height/Length Dosing, 88, kg, 09/29/21 8:57:00 EDT, Weight Dosing Start Date: 09/29/21 Status: Ordered Comment on above: Take 1 capsule by [facility] two times a day. QUEtiapine [...] at bedtime. riboflavin 100 mg oral tablet (6 sources) Start: 11-11-2023 take 1 tablet by mouth once daily riboflavin, vitamin B2, (VITAMIN B2) 100 mg tab Take 1 tablet by mouth once daily. 90 tablet 3 11/11/2023 Active tiZANidine 4 mg oral tablet (1 source) Central alpha-2 Adrenergic Agonist Start: 08-20-2024 take 1 tablet by mouth three times daily as needed Tizanidine (Zanaflex) 4 mg tablet Active 4 MG PO Three times daily as needed for muscle spasticity August 20, 2024 12:00am 24 hr topiramate 100 mg extended release oral capsule (20 sources) Start: 01-04-2025 take 1 capsule by mouth once daily Trokendi XR 100 mg oral capsule, extended release TAKE 1 CAPSULE BY MOUTH EVERY DAY Start Date: 01/04/25 Status: Ordered Repeat number: 1 Start: 03-07-2021 take 1 capsule by [facility] once daily Trokendi XR 100 mg oral capsule, extended release TAKE 1 CAPSULE BY MOUTH EVERY DAY Start Date: 03/07/21 Status: Ordered Start: 03-07-2021 take 1 capsule by [facility] once daily Trokendi XR 100 mg oral capsule, extended release TAKE 1 CAPSULE BY MOUTH EVERY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 21:06:44 06/12/2024 21:08:18 06/12/2024 21:08:18 RN Exam Complete 06/12/2024 21:06:44 06/12/2024 21:21:58 06/12/2024 21:21:58 Registration Complete 06/12/2024 21:08:18 06/12/2024 21:11:52 06/12/2024 21:11:52 Reg Complete Request 06/12/2024 21:11:52 Reg Bed Request Complete 06/12/2024 21:11:52 06/12/2024 21:11:52 06/12/2024 21:11:52 Pending Labs Complete 06/12/2024 21:22:56 06/12/2024 22:21:20 Lab Complete 06/12/2024 21:22:56 06/12/2024 22:14:22 Patient Care Request 06/12/2024 21:22:56 X-Ray Complete 06/12/2024 21:22:56 06/12/2024 21:24:37 06/12/2024 21:40:39 Meds Admin Complete 06/12/2024 21:22:56 06/12/2024 21:37:33 RT Tx/ABG Request 06/12/2024 21:22:56 RT Tx/ABG Request 06/12/2024 21:22:57 Wet Read Request 06/12/2024 21:40:39 Pending Labs Complete 06/12/2024 21:49:43 06/12/2024 21:49:43 06/12/2024 22:14:22 Lab Complete 06/12/2024 21:49:43 06/12/2024 21:49:43 06/12/2024 22:14:22 Pending Labs Complete 06/12/2024 21:50:05 06/12/2024 21:50:05 06/12/2024 21:50:06 Meds Admin Complete 06/12/2024 22:27:57 06/12/2024 22:42:32 Discharge Complete 06/12/2024 22:29:10 06/12/2024 22:56:59 06/12/2024 22:56:59 Transfer Complete 06/12/2024 22:57:00 06/12/2024 22:57:00 06/12/2024 22:57:00 ADDRESS: [address] [place] [phone] PHYS DOC NOTES: MEDICAL INFORMATION: Prescriptions Given: New Medications [facility]/pharmacy #[id number], [address] [place] [phone], [phone] brompheniramine/dextromet horphan/PSE (Bromfed DM oral syrup) 5 Milliliter By Mouth every 6 hours as needed for cough and congestion. Refills: [...] release) 1 tab By Mouth every day. galcanezumab (Emgality Prefilled Pen 120 mg/mL subcutaneous solution) 120 Milligram Subcutaneous once a month. hydrOXYzine (hydrOXYzine pamoate 25 mg Cap) 1 Capsules By Mouth 4 times a day as needed for anxiety. lamotrigine (Lamictal 150 mg Tab) 1 Tablets By Mouth at bedtime. levothyroxine (levothyroxine 50 mcg (0.05 mg) Tab) 1 Tablets By Mouth every day. TAKE 1 TABLET BY MOUTH EVERY DAY. liothyronine (liothyronine 25 mcg Tab) 1 Tablets By Mouth every day. lumateperone (Caplyta 42 mg oral capsule) 1 Capsules By Mouth every day. Misc Prescription (VITAMIN B-2 100 MG TABLET) 0. multivitamin (Multi Vitamins oral tablet) 1 Tablets By Mouth every day. pregabalin (Lyrica 150 mg Cap) 1 Capsules By Mouth 2 times a day. Refills: 1. pregabalin (Lyrica 225 mg oral capsule) 1 Capsules By Mouth 2 times a day for 30 Days. Refills: 0. topiramate (Trokendi XR 100 mg oral capsule, extended release) TAKE 1 CAPSULE BY MOUTH EVERY DAY. trazodone (traZODONE 50 mg Tab) 1 Tablets By Mouth once a day (at bedtime). PATIENT EDUCATION INFORMATION: Instructions: Community-Acquired Pneumonia, Adult Follow up: With: Address: When: Pepe Alcazar [facility] [facility], [address] [place] [phone] Business (1) In 3 days DIAGNOSIS: Pneumonia Normal [facility] ED Note-Physicianon 06-12-20 ED Note-Physician ED Note-Physician Basic Information Time Seen: Dandy Ashton DO 06/12/2024 21:08 Chief Complaint Coughing for 10 minutes and unable to eat and was sent by family. Saw PCP this AM for f/u. Urgent care diacgnosed pneumonia last week, on zithromax and tessalon perles and Prednisone. Started on ewn antibiotic this AM, has not started yet. History of Present Illness HPI: Patient is a 44-year-old female with past medical history of anxiety, bipolar, migraines who presents the ED for cough and shortness of breath. Patient states this for started a week ago at which time she went to the urgent care and had a chest x-ray and was diagnosed with pneumonia. She finished a course of a oral antibiotic as well as prednisone but states she is not feeling any better. She continues to have cough chills malaise as well as body aches. She denies any fevers that she is aware of. She denies any nausea or vomiting. She talk to her primary care physician today who called her in a new prescription for cefdinir but she has not taken any yet. ROS: Pertinent review of systems conducted and [...] edema Physical Exam Vitals & Measurements T: 37.4 ???C(Tympanic) HR: 73(Peripheral) RR: 20 BP: 106/69 SpO2: 98% HT: 160 cm WT: 99.6 kg BMI: 38.91 Medical Decision Making MEDICAL DECISION MAKING Number and Complexity of Problems Differential Diagnosis: [] [facility] Data External documents reviewed: N/A My EKG interpretation: Noted in chart if applicable My CT interpretation: N/A My X-ray interpretation: Noted in chart if applicable My Ultrasound interpretation: N/A Decision rules/scores evaluated: N/A Discussed with: N/A Treatment and Disposition ED Course: Patient is nontoxic-appearing and in no distress. She is afebrile here in the ED. She is saturating at 100% on room air. Lungs are clear to auscultation. EKG, chest x-ray, and blood work were obtained. X-ray is overall unchanged in appearance. Blood work is overall very reassuring. I discussed with her these results and she has already picked up her prescription for the cefdinir but has just not taken a dose yet. She had just finished a course of azithromycin so I think cefdinir is an appropriate antibiotic to try. She did not have any relief and we tried an albuterol treatment. We discussed the plan of starting her cefdinir tonight when she gets home and we will also call her in a prescription for Bromfed as needed. She will follow-up closely with her primary care physician on an outpatient basis. Shared decision making: As above Code status: N/A Assessment/Plan Pneumonia (J18.9: Pneumonia, unspecified organism) Orders: albuterol, 2.5 mg, 3 mL, Soln-Inh, NEB, Once, Stop date 06/12/24 21:22:00 EST, STAT, Start date 06/12/24 21:22:00 EST brompheniramine/dextromet horphan/PSE, 5 mL, Oral, q6hr for cough and congestion, 120 mL, Refill(s) 0, [facility]/pharmacy #[id number], 160, cm, 06/12/24 21:06:00 EST, Height/Length Dosing, 99.6, kg, 06/12/24 21:06:00 EST, Weight Dosing brompheniramine/dextromet horphan/PSE, 5 mL, Syrup, Oral, Once, Stop date 06/12/24 22:27:00 EST, STAT, Start date 06/12/24 22:27:00 EST Basic Metabolic Panel CBC w/ Auto Diff ED Cardiac Monitoring eGFR Extra SST Tube Oxygen Saturation PT & PTT Troponin 0 Hr. XR Chest Single View Medications Administered Given albuterol 0.083% Inh Patty 3 mL, 2.5 mg, NEB Disposition Plan Discharge Prescription List Prescriptions Bromfed DM oral syrup, 5 mL, Oral, q6hr, PRN Follow-up With When Contact Information Pepe Hoy In 3 days [facility] [place] [phone] Business (1) Additional Instructions: Patient Education Community-Acquired Pneumonia, Adult Problem List/Past Medical History Ongoing Anxiety [...] Cholecystectomy (12/07/2003), Hysterectomy, Ligament repair. Medications Inpatient albuterol 0.083% Inh Patty 3 mL, 2.5 mg= 3 mL, NEB, Once Home Austedo XR 12 mg oral tablet, extended release, 1 tab, Oral, Daily Aus (more content not included)... Normal [facility] Comment on above: Result Comment: Elec tronically Signed By: Dandy Ashton DO\.br\Date and Time Signed: 06/12/24 22:31 EST ED Patient Summaryon 024 ED Patient Summary ED Patient Summary [address] [place] [id number] Patient Discharge Instructions Person Information Name: MITESH BURGESS Age: 44 Years Arrival Date: 06/12/2024 20:56:25 Discharge Diagnosis: Pneumonia Primary Care Physician: Pepe Alcazar MD Provider Information Primary Provider: Dandy Ashton DO [employer] [facility] [employer] Director:None The exam and treatment you received in the Emergency Department were for an urgent problem and are not intended as complete care. It is important that you follow up with a doctor, nurse practitioner, or physician???s office support assistant for ongoing care. If [...] Follow-up Instructions: With: Address: When: Pepe Alcazar [address] [place] [address], [facility] [address] Business (1) In 3 days In the event that this physician does not participate in your insurance network, please consult with your insurance company to find a nearby participating provider. Patient Education Materials: Community-Acquired Pneumonia, Adult A MESSAGE TO ALL PATIENTS REGARDING OPIOIDS PRESCRIPTION OPIOIDS: WHAT YOU NEED TO KNOW Prescription opioids can be used to help relieve [id number] pain and are often prescribed following a [...] as well, even when taken as directed: ??? Tolerance???meaning you might need to take more of the medication for the same pain relief ??? Physical dependence???meaning you have symptoms of withdrawal when a medication is stopped ??? Increased sensitivity to pain ??? Constipation ??? Nausea, vomiting, and dry mouth ??? Sleepiness and dizziness ??? Confusion ??? Depression ??? Low levels of testosterone that can result in lower sex drive, energy, and strength ??? Itching and sweating RISKS ARE GREATER WITH: ??? History of drug misuse, substance use disorder, or overdose ??? Mental health conditions (such as depression or anxiety) ??? Sleep apnea ??? Older age (65 years and older) ??? Avoid alcohol while taking prescription opioids. Also, unless specifically advised by your health care provider, medications to avoid include: ??? Benzodiazepines (such as Xanax or Valium) ??? Muscle relaxants (such as Soma or Flexeril) ??? Hypnotics (such as Ambien or Lunesta) ??? Other prescription opioids KNOW YOUR OPTIONS Talk to your health care provider about ways to manage your pain that don???t involve prescription opioids. Some of these options may actually work better and have fewer risks and side effects. Options may include: ??? Pain relievers such as acetaminophen, ibuprofen, and naproxen ??? Some medication that are also used for depression or seizures ??? Physical therapy and exercise ??? Cognitive behavioral therapy, a psychological, goal-directed approach, in which patients learn how to modify physical, behavioral, and emotional triggers of pain and stress. IF YOU ARE PRESCRIBED OPIOIDS FOR PAIN: ??? Never take opioids in greater amounts or more often than prescribed. ??? Follow up with your primary health care provider. o Work together to create a plan on how to manage your pain. o Talk about ways to help manage your pain that don???t involve prescription opioids. o Talk about any and all concerns and side effects. ??? Help prevent misuse and abuse o Never sell or share prescription opioids. o Never use another person???s prescription opioids. ??? Store prescription opioids in a secure place and out of reach of others (this may include visitors, children, friends, and family). ??? Safely dispose of unused prescription opioids: Find your community drug take-back program or your pharmacy mail-back program, or flush them down the toilet, following guidance from the Food and Drug Administration (www.fda.gov/Drugs/Resour cesForYou). ??? Visit www.cdc.gov/drugoverdose to learn about the risks of opioids abuse and overdose. ??? If you believe you may be struggling with addiction, tell your health animal care worker and ask for g (more content not included)... Normal [facility] HEMATOLOGYOrdered By: SYSTEM SYSTEM on 06-12-2024 Basophils/100 WBC (Bld) 1.2 % Normal 0.0 - 2.0 % Remisol Heme Basophils/Leukocytes Auto (Bld) [Pure # fraction] 0.1 E9/L Normal 0.0 - 0.2 E9/L Remisol Heme Eosinophils (Bld) [#/Vol] 0.0 E9/L Normal 0.0 - 0.5 E9/L Remisol Heme Eosinophils/100 WBC (Bld) 0.0 % Normal 0.0 - 8.0 % Remisol Heme Erythrocyte distribution width (RBC) [Ratio] 12.5 % Normal 10.9 - 14.2 % Remisol Heme Hematocrit (Bld) [Volume fraction] 41.1 % Normal 34.0 - 46.0 % Remisol Heme Hemoglobin (Bld) [Mass/Vol] 14.4 g/dL Normal 12.0 - 16.0 gm/dL Remisol Heme Lymphocytes (Bld) [#/Vol] 3.1 E9/L Normal 1.0 - 4.0 E9/L Remisol Heme Lymphocytes/100 WBC (Bld) 34.8 % Normal 14.0 - 50.0 % Remisol Heme MCH (RBC) [Entitic mass] 31.8 pg Normal 27.0 - 34.0 pg Remisol Heme MCHC (RBC) [Mass/Vol] 35.1 g/dL Normal 31.4 - 36.0 gm/dL Remisol Heme MCV (RBC) [Entitic vol] 90.7 fL Normal 80.0 - 100.0 fL Remisol Heme Monocytes (Bld) [#/Vol] 0.5 E9/L Normal 0.2 - 1.0 E9/L Remisol Heme Monocytes/100 WBC (Bld) 6.0 % Normal 4.0 - 14.0 % Remisol Heme Neutrophils (Bld) [#/Vol] 5.2 E9/L Normal 2.0 - 7.5 E9/L Remisol Heme Neutrophils/100 WBC (Bld) 58.0 % Normal 36.0 - 75.0 % Remisol Heme Platelet mean volume (Bld) [Entitic vol] 7.5 fL Normal 6.4 - 10.8 fL Remisol Heme Platelets (Bld) [#/Vol] 375.0 E9/L Normal 150.0 - 500.0 E9/L Remisol Heme RBC (Bld) [#/Vol] 4.5 E12/L Normal 4.3 - 5.9 E12/L Remisol Heme WBC corrected for nucl RBC Auto (Bld) [#/Vol] 8.9 E9/L Normal 4.0 - 11.0 E9/L Remisol Heme Troponin 0 Hr.on 06-12-2024 Troponin HS <2.30 Low 10.10-27.10 [facility] Comment on above: Result Comment: The 95% CI (Confidence Interval) PPV (Positive Predictive Value) for myocardial infarction in females is 38 pg/mL, in males 51 pg/mL. The results should be used in conjunction with clinical conditions of myocardial infarction. (Access High Sensitivity Troponin I Instructions For Use, [employer], February 2018) Performed By: #### 1 [id number] #### [facility] [address] [place] [address] Family Medicine Office/Clini c Noteon 06-05-2024 Family Medicine Office/Clinic Note Family Medicine Office/Clinic Note Chief Complaint cough, congestion HPI Staff 44 year old female presents for a cough, sinus congestion, chest tightness, headache, fatigue. Pt was recently exposed to pneumonia. Pt denies having a fever. Onset- 2 days History of Present Illness I have reviewed and verified the staff HPI to be accurate for this encounter. Portions of this record have been created with voice recognition software. Occasional wrong-word or ???[id number]??? substitutions may have occurred due to the inherent limitations of voice recognition software. 44 yo female with history of anxiety, bipolar disorder, migraine presents today with cc of sore throat, cough and congestion. Patient states onset of symptoms x 2 days ago. Denies fever or chills. States she was recently exposed to pneumonia. She states with generalized fatigue and headache with her symptoms. Patient states she has been around her niece who had walking pneumonia that she did not know at the time she was around her. 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 She denies any known exposures to COVID-19 or influenza. States dry cough, nonproductive. Denies any history of asthma or COPD. Denies smoking history. Denies any chest pain shortness of breath difficulty breathing or wheezing. States cough has woken her melanite states sore throat a little bit of ear pressure but denies ear pain. States that she really does not have a runny or stuffy nose states she feels most of the congestion is in her chest. She does states she has had bronchitis in the past but is concerned for pneumonia today. States chills but denies any measured temp. She has no other concerns at this time. Review of Systems PHQ Score Initial Depression Screen Score: 0 SCORE ROS negative unless otherwise stated in HPI. Physical Exam Vitals & Measurements T: 36.8 ???C(Oral) HR: 64(Peripheral) BP: 112/64 SpO2: 97% HT: 63 in HT: 161 cm WT: 99.2 kg WT: 218.698 lb BMI: 38.27 General: Pleasant obese female, no acute distress Eyes: Bilateral conjunctiva within normal limits no injection Ears: Bilateral TMs are within normal limits no erythema or bulging. Bilateral external auditory canals are within normal limits no erythema or edema Nose: No deformity, discharge, inflammation, or lesions Mouth: Moist mucous membranes. Uvula is midline. No acute tonsillar erythema edema or exudate. No signs of peritonsillar abscess. No trismus or drooling. Neck: no adenopathy Lungs: Lung sounds with faint expiratory wheeze at bilateral lower lung bases otherwise clear throughout. No crackles or rhonchi. Symmetrical expansion. No signs of respiratory distress. Cardio: S1, S2, regular rhythm. No murmurs gallops or rubs. Abdomen: not assessed Musculoskeletal: not assessed Extremity: not assessed Neurologic: not assessed Skin: not assessed Mental Status: Alert and oriented x3. Normal mood and affect Assessment/Plan Patient is concerned for pneumonia will obtain a two-view chest x-ray to rule this out. Discussed otherwise her symptoms are most likely viral in nature. Will discuss results of chest x-ray and then proceed with plan of care. Patient is in agreement. X-ray appears to be negative based on my own interpretation however discussed with patient I will contact her once I have a full radiology report. At this time we will treat patient with prednisone 40 mg daily x 5 days duration in addition to Tessalon Perles 1 tablet every 8 hours as needed for cough. Will hold off on antibiotics and treat as a viral bronchitis until having the final radiology report in which patient agrees and understands plan of care. Patient was notified in regards to positive chest x-ray concerning for right lower lobe pneumonia. Discussed treatment with antibiotic Zithromax in addition to the prednisone and Tessalon which was already sent to the pharmacy for the patient patient will follow closely with primary care provider to ensure improvement of symptoms otherwise may return if needed. ER for reevaluation if she develops any chest pain shortness of breath or difficulty breathing which patient agrees and understands plan of care. 1. Right lower lobe pneumonia (J18.9: Pneumonia, unspecified organism) See above Cough (R05.9: Cough, unspecified) Ordered: azithromycin, = 1 packet(s), Oral, As Directed, as directed on package labeling, X 5 day(s), # 6 tab(s), Refills(s) 0, Pharmacy: [facility]/pharmacy #[id number], 161, cm, 06/05/24 12:33:00 EST, Height/Length Dosing, 99.2, kg, 06/05/24 12:33:00 EST, Weight Dosing benzonatate, 100 mg = 1 cap(s), Oral, TID, X 7 day(s), # 21 cap(s), Refills(s) 0, Pharmacy: [facility]/pharmacy #[id number], 161, cm, 06/05/24 12:33:00 EST, Height/Length Dosing, 99.2, kg, 06/05/24 12:33:00 EST, Weight Dosing predniSONE, 40 mg = 2 tab(s), Oral, Daily, X 5 day(s), # 10 tab(s), Refills(s) 0, Pharmacy: [facility]/pharmacy #[id number], 161, cm, 06/05/24 12:33:00 EST, Height/Length Dosing, 99.2, kg, 11 (more content not included)... Normal [facility] Comment on above: Result Comment: Elec tronically Signed By: Vincent ZAPIEN, Ulises Finnegan\.br\Date and Time Signed: 06/05/24 13:37 EST XR Chest 2 Viewson XR Chest 2 Views Exam Date/Time: 06/05/2024 13:12 EST Reason for Exam: cough x 2 days, exposure to pneumonia;Cough Report IMPRESSION: MILD RIGHT LOWER LOBE OPACITIES SUSPICIOUS FOR BRONCHOPNEUMONIA EXAM: XR Chest 2 Views DATE: 06/05/2024 1:11 PM CLINICAL HISTORY: Cough, cough x 2 days, exposure to pneumonia. COMPARISON: 09/28/2023 TECHNIQUE: Upright PA and lateral radiographs of the chest were obtained. FINDINGS: Mild right lower lobe airspace opacities are suspicious for bronchopneumonia. There is no cardiomegaly, pleural effusion, vascular congestion, pneumothorax, or displaced fractures identified. 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 No acute intracranial process. [facility] Transcribe Date/Time: Mar 04 2024 4:44P Dictated by : KWABENA RAYMUNDO MD This examination was interpreted and the report reviewed and electronically signed by: KWABENA RAYMUNDO MD on Mar 04 2024 4:51PM EST DIVISION OF RADIOLOGY * * *Final Report* * * DATE OF EXAM: Mar 04 2024 3:51PM [facility] 0295 - MRI BRAIN WO/W IVCON / PROCEDURE REASON: Hemangioma of bone * * * * Physician Interpretation * * * * EXAMINATION: MRI BRAIN WO/W IVCON CLINICAL HISTORY: Hemangioma of bone - Brain/BUTTER FAT TESTER neoplasm, monitor TECHNIQUE: Routine brain MRI protocol [...] Extracranial soft tissues appear within normal limits. DIVISION OF RADIOLOGY Provider, 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 No acute intracranial process. Roughener: [facility] Transcribe Date/Time: Mar 04 2024 4:44P Dictated by : KWABENA RAYMUNDO MD This examination was interpreted and the report reviewed and electronically signed by: KWABENA RAYMUNDO MD on Mar 04 2024 4:51PM EST [facility] Radiology Study observation (narrative) [facility] MR Brain WO and W contrast I VOrdered By: [facility] Provider on 03-04-2024 [facility] MRI BRAIN WO/W IVCONon 03-04 MRI BRAIN WO/W IVCON * * *Final Report* * * DATE OF EXAM: Mar 04 2024 3:51PM [facility] 0295 - MRI BRAIN WO/W IVCON / PROCEDURE REASON: Hemangioma of bone * * * * Physician Interpretation * * * * EXAMINATION: MRI BRAIN WO/W IVCON CLINICAL HISTORY: 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 No acute intracranial process. Roughener: [facility] Transcribe Date/Time: Mar 04 2024 4:44P Dictated by : KWABENA RAYMUNDO MD This examination was interpreted and the report reviewed and electronically signed by: KWABENA RAYMUNDO MD on Mar 04 2024 4:51PM EST [id number] Normal [facility] CNOVon 02-07-2024 CNOV Office Visit ([facility] ----- MITESH BURGESS ([id number]) 1980 F Date Time Provider Department 02/07/24 11:00 AM [facility] During your visit today, we recorded the [...] No Does patient want to see a Senior Sql Server Developer? No (yes to any of above refer [...] Bishop Beth, APRN.CNP 02/07/2024 10:43 AM Signed [facility] BRAIN TUMOR CENTER NEURO-ONCOLOGY OUTPATIENT NOTE [...] SOB, wheez (more content not included)... Normal [facility] Outside Records Officeon Outside Records Office [id number] Normal [facility] CNOVon 11-11-2023 CNOV Office Visit (NEADFV ) ----- MITESH BURGESS ([id number]) 1980 F Date Time Provider Department 11/11/23 [...] Stalin Reyes MD 11/11/2023 1:34 PM Signed [facility] for General Neurology Follow up/ Established patient visit Individuals who were included in, or assisted with the encounter were: Mitesh Burgess Stalin Reyes MD Chief Complaint/Issues: Mitesh Burgess is a 43 year old R handed female w PMH chronic migraine on Emgality, anxiety, depression, tardive dyskinesia from psychiatric meds on [place], skull mass following with brain tumor clinic, seen in the [facility] for General Neurology for: Dizziness, headache and hand tremor Most Recent Neurological Assessment and Plan: Last Filed Values Date of Most Recent Assessment and Plan 05/08/23 Specialty General Neurology Assessment Mitesh Burgess is a 43 year old R handed female w PMH chronic migraine stopped Emgality half year ago, anxiety, depression, skull mass, seen in the [facility] for General Neurology for: 1. Dizziness, headache [...] No patholo (more content not included)... Normal [facility] CT Abdomen/Pelvis w/ Contras ton 10-29-2023 CT [...] Oral contrast amount in ml's: 0 Normal [facility] ED Note-Physicianon 10-29-19 ED Note-Physician Basic [...] and Complexity of Problems Differential Diagnosis: [] [facility] Data External documents reviewed: [] My [...] UA with Cult Rflx Medications Administered Given [id number] [F] 1000 mg + GenDil 100 mL, IV Piggyback NS 1000 ml Bolus, 1000 mL, IV ondansetron 4 mg Dis Tab, 12 mg, Oral ondansetron 4 mg/2 mL Inj, 4 mg, IV Push TO GO acetaminophen-oxycodone 325 mg - 5 mg, 1 EA, Oral Disposi (more content not included)... Normal [facility] Comment on above: Result Comment: Elec tronically Signed By: Daniel Barton PA-C\.br\Date and Time Signed: 10/28/23 21:41 EDT\.br\Electronically Co-Signed By: Rosalio Dan DO\.br\Date and Time Co-Signed: 10/29/23 07:16 EDT Prescriptions/Work Noteson 0 10-29-2023 Prescriptions/Work Notes [id number] Normal [facility] B hCG Qualon 10-28-2023 Beta HCG ( test) Ql Negative Normal [facility] Comment on above: Performed By: #### 2 297595, 78533962, 4586358, 04909179, 4749521, 7971462 ####[facility] [address] [place] [address] BMPon 10-28-2023 Anion gap [Moles/Vol] 12 mmol/L Normal 6-16 [facility] Comment on above: Performed By: #### 2 914159, 55070654, 8170455, 43360942, 1152376, 1769360 #### [facility] [address] [place] [address] Calcium [Mass/Vol] 8.8 mg/dL Low 8.9-11.1 [facility] Comment on above: Performed By: #### 2 480625, 12710109, 3872383, 49768394, 5954166, 2722122 #### [facility] [address] [place] [address] Chloride [Moles/Vol] 107 mmol/L Normal 101-111 [facility] Comment on above: Performed By: #### 2 494095, 58100960, 2159029, 55955437, 7062356, 6273214 #### [facility] [address] [place] [address] CO2 [Moles/Vol] 22 mmol/L Normal 21-31 [facility] Comment on above: Performed By: #### 2 243845, 64006910, 5582966, 67102112, 8173250, 6622148 #### [facility] [address] [place] [address] Creatinine [Mass/Vol] 0.9 mg/dL Normal 0.5-1.3 [facility] Comment on above: Performed By: #### 2 364756, 25512358, 5604389, 86499876, 3858216, 9375276 #### [facility] [address] [place] [address] Glucose [Mass/Vol] 103 mg/dL Normal 55-199 [facility] Comment on above: Performed By: #### 2 620407, 08547833, 7281888, 95456155, 8616736, 5295518 #### [facility] [address] [place] [address] Potassium [Moles/Vol] 3.1 mmol/L Low 3.5-5.3 [facility] Comment on above: Performed By: #### 2 330433, 84264039, 4214100, 84751732, 1855772, 2679897 #### [facility] [address] [place] [address] Sodium [Moles/Vol] 138 mmol/L Normal 135-145 [facility] Comment on above: Performed By: #### 2 329625, 63729695, 9596882, 86047823, 4914438, 5977229 #### [facility] [address] [place] [address] Urea nitrogen [Mass/Vol] 16 mg/dL Normal 5-21 [facility] Comment on above: Performed By: #### 2 170503, 65897171, 2669300, 83803078, 7406083, 6616446 #### [facility] [address] [place] [address] Urea nitrogen/Creatinine [Mass ratio] 18 No Units Normal 10-20 [facility] Comment on above: Performed By: #### 2 736218, 22064148, 2795221, 34677982, 8512394, 2994231 #### [facility] [address] [place] [address] CBC w/ Auto Diffon 4 Basophils/100 WBC (Bld) 0.4 % Normal 0.0-2.0 [facility] Comment on above: Performed By: #### 2 708414, 42934323, 3090790, 18920816, 6053117, 0020725 #### [facility] [address] [place] [address] Basophils/Leukocytes Auto (Bld) [Pure # fraction] 0.0 E9/L Normal 0.0-0.2 [facility] Comment on above: Performed By: #### 2 686057, 42751282, 7294303, 91300095, 0307305, 7020356 #### [facility] [address] [place] [address] Eosinophils (Bld) [#/Vol] 0.0 E9/L Normal 0.0-0.5 [facility] Comment on above: Performed By: #### 2 398923, 19011174, 9269168, 57775213, 2363302, 3497049 #### [facility] [address] [place] [address] Eosinophils/100 WBC (Bld) 0.1 % Normal 0.0-8.0 [facility] Comment on above: Performed By: #### 2 056582, 58130226, 1551252, 59877316, 9327581, 8137296 #### [facility] [address] [place] [address] Erythrocyte distribution width (RBC) [Ratio] 12.2 % Normal 10.9-14.2 [facility] Comment on above: Performed By: #### 2 874060, 14238590, 0946281, 53987991, 9167086, 2028437 #### [facility] [address] [place] [address] Hematocrit (Bld) [Volume fraction] 39.8 % Normal 34.0-46.0 [facility] Comment on above: Performed By: #### 2 323175, 13763107, 4007837, 00022203, 8600579, 1534429 #### [facility] [address] [place] [address] Hemoglobin (Bld) [Mass/Vol] 13.5 g/dL Normal 12.0-16.0 [facility] Comment on above: Performed By: #### 2 343538, 83436581, 4421783, 30751272, 2313841, 5574838 #### [facility] [address] [place] [address] Lymphocytes (Bld) [#/Vol] 1.8 E9/L Normal 1.0-4.0 [facility] Comment on above: Performed By: #### 2 130600, 23280603, 7619433, 01152970, 9146518, 8089265 #### [facility] [address] [place] [address] Lymphocytes/100 WBC (Bld) 28.3 % Normal 14.0-50.0 [facility] Comment on above: Performed By: #### 2 154863, 22990813, 0933777, 44685345, 8026052, 5399205 #### [facility] [address] [place] [address]402 MCH (RBC) [Entitic mass] 31.3 pg Normal 27.0-34.0 [facility] Comment on above: Performed By: #### 2 763006, 50776264, 6285098, 48627961, 3418421, 0853950 #### [facility] [address] [place] [address]89 MCHC (RBC) [Mass/Vol] 33.9 g/dL Normal 31.4-36.0 [facility] Comment on above: Performed By: #### 2 374826, 89766138, 2373788, 50576845, 2308766, 4653295 #### [facility] [address] [place] [address] 49787 MCV (RBC) [Entitic vol] 92.4 fL Normal 80.0-100.0 [facility] Comment on above: Performed By: #### 2 681687, 92903692, 6051625, 88948821, 6793365, 8256501 #### [facility] [address] [place] [address]75[address] Monocytes (Bld) [#/Vol] 0.5 E9/L Normal 0.2-1.0 [facility] Comment on above: Performed By: #### 2 421910, 25814970, 5261569, 97815134, 1047825, 8751064 #### [facility] [address] [place] [address] 289[address] Neutrophils (Bld) [#/Vol] 4.1 E9/L Normal 2.0-7.5 [facility] Comment on above: Performed By: #### 2 104047, 25548133, 7550454, 45555503, 9460247, 5558346 #### [facility] [address] [place] [address] Neutrophils/100 WBC (Bld) 63.5 % Normal 36.0-75.0 [facility] Comment on above: Performed By: #### 2 349068, 73885531, 0929484, 31569770, 9292336, 9468010 #### [facility] [address] [place] [address] 19281 Platelet 255.0 E9/L Normal 150.0-500.0 [facility] Comment on above: Performed By: #### 2 880091, 06170762, 7310905, 13037445, 0629862, 3985927 #### [facility] [address] [place] [address] Platelet mean volume (Bld) [Entitic vol] 7.7 fL Normal 6.4-10.8 [facility] Comment on above: Performed By: #### 2 170739, 65561861, 8095090, 46810166, 5801780, 9326399 #### [facility] [address] [place] [address] 33695 RBC (Bld) [#/Vol] 4.3 E12/L Normal 4.3-5.9 [facility] Comment on above: Performed By: #### 2 638009, 51095079, 1896249, 92811796, 8076133, 3987934 #### [facility] [address] [place] [address]198 WBC corrected for nucl RBC Auto (Bld) [#/Vol] 6.5 E9/L Normal 4.0-11.0 [facility] Comment on above: Performed By: #### 2 293056, 58166150, 4452627, 92747993, 8760071, 8952816 #### [facility] [address] [place] [address] CHEMISTRYOrdered By: SYSTEM SYSTEM on 10-28-2023 Albumin [...] Consent for Treatmenton 10-07 Consent for Treatment [id number] Normal [facility] Discharge Instructionson Discharge Instructions [id number] Normal [facility] ED Clinical Summaryon 2023 ED Clinical Summary (Inserted Image. Lucie ble to display) [place] [id number] ED Clinical Summary Person Information Name: MITESH BURGESS [facility] Age: 43 Years : 1980 Sex: Female Language: Cook Islander PCP: Pepe Alcazar MD Marital Status: Phone: [phone] Visit Id: Visit Reason: Nausea; Abdominal pain; [...] 20:38:26 10/28/2023 20:38:26 ADDRESS: [address] [place] [id number] PHYS DOC NOTES: MEDICAL INFORMATION: Prescriptions Given: New Medications [facility]/pharmacy #[id number], [address] [place], [place] [id number], [phone] acetaminophen-oxycodone (acetaminophen-oxycodone 325 mg-5 mg Tab) 1 [...] Follow up: With: Address: When: Luis Armando [facility], [address], [facility] [address] [place] [address] Business (1) [facility], [address] [place] [address] Business (1) In 3 days 10/31/2023 Comments: Call Dr for diagnosis based follow up With: Address: When: Pepe Alcazar [address] [facility], [place] [address] Business (1) In 3 days DIAGNOSIS: Abdominal pain; Right kidney mass Normal [facility] ED Patient Education Noteon 10-28-2023 ED [...] gives to you. In general: ? Take ybfg-ahp-rfnoakl and prescription medicines only as told by [...] provider. Document Revised: 12/19/2020 Document Reviewed: 12/19/2020 [employer] Patient Education ? 2022 CM Sistemi. Normal [facility] ED Patient Summaryon 024 ED Patient Summary (Inserted Image. Lucie ble to display) [address] [address] Patient Discharge Instructions Person Information Name: MITESH BURGESS Age: 43 Years Arrival Date: 10/28/2023 17:25:04 Discharge Diagnosis: Abdominal pain; Right kidney mass Primary Care Physician: Pepe Alcazar MD Provider Information Primary Provider: Rosalio Dan DO [facility] Director:None The exam and treatment you received in [...] Instructions: With: Address: When: Luis Armando [address] [place] [address], [address], [address] [address] Business (1) [facility], [address] [place] [address] Business (1) In 3 days 10/31/2023 Comments: Call for diagnosis based follow up With: Address: When: Pepe Alcazar [address] [facility], [address] [place] [phone] Business (1) In 3 days In the event that this physician does not participate in your insurance network, please consult with your insurance company to find a nearby participating provider. Patient Education Materials: Renal Mass A MESSAGE TO ALL PATIENTS REGARDING OPIOIDS PRESCRIPTION OPIOIDS: WHAT YOU NEED TO KNOW Prescription opioids can be used to help relieve fdglqeis-kn-kfkcwt pain and are often prescribed following a [...] (www.fda.gov/Drugs/Resour cesForYou). (more content not included)... Normal [facility] HEMATOLOGYOrdered By: SYSTEM SYSTEM on 10-28-2023 [...] 10-28-2023 Albumin [Mass/Vol] 4.1 g/dL Normal 3.3-5.0 [facility] Comment on above: Performed By: #### 2 682938, 18725885, 6439520, 05006577, 2280428, 2904721 #### [facility] [address] [place] [address] Albumin/Globulin (S) [Mass conc ratio] 1.6 Normal 1.1-2.2 [facility] Comment on above: Performed By: #### 2 816913, 73273522, 7828787, 60826898, 0244855, 6764444 #### [facility] [address] [place] [address] ALP [Catalytic activity/Vol] 86 Int._Unit/L Normal 21-98 [facility] Comment on above: Performed By: #### 2 139933, 31707384, 5578806, 32506589, 7569641, 7966688 #### [facility] [address] [place] [address] 54360 ALT No additional P-5'-P [Catalytic activity/Vol] 10 Int._Unit/L Normal 6-46 [facility] Comment on above: Performed By: #### 2 716973, 53444672, 1200122, 50059475, 0629361, 0846241 #### [facility] [address] [place] [address] 66974 AST [Catalytic activity/Vol] 10 Int._Unit/L Normal 5-43 [facility] Comment on above: Performed By: #### 2 259791, 25119063, 6837515, 81264462, 9146098, 2895801 #### [facility] [address] [place] [address] 36974 Bilirubin [Mass/Vol] 0.6 mg/dL Normal 0.0-1.1 [facility] Comment on above: Performed By: #### 2 726909, 20736696, 5280668, 02973390, 0907393, 6518019 #### [facility] [address] [place] [address]264 Bilirubin.direct [Mass/Vol] 0.1 mg/dL Normal 0.0-0.4 [facility] Comment on above: Performed By: #### 2 464385, 02992923, 3201193, 06315586, 2527150, 5765445 #### [facility] [address] [place] [address]6465 Bilirubin.indirect [Mass or moles/Vol] 0.5 mg/dL Normal 0.1-0.9 [facility] Comment on above: Performed By: #### 2 511307, 98978785, 3639304, 41343840, 0201761, 2999911 #### [facility] [address] [place] [address]32[address] Globulin (S) [Mass/Vol] 2.5 g/dL Normal 1.4-4.0 [facility] Comment on above: Performed By: #### 2 694352, 74999690, 2200741, 86889820, 6090132, 7989313 #### [facility] [address] [place] [address] Protein [Mass/Vol] 6.6 g/dL Normal 6.0-7.8 [facility] Comment on above: Performed By: #### 2 011294, 11986863, 0084545, 50358540, 2439801, 3102391 #### [facility] [address] [place] [address] Lipase Levelon 10-28-2023 Lipase [Catalytic activity/Vol] 10 U/L Low 13-58 [facility] Comment on above: Performed By: #### 2 273614, 24786613, 1245097, 30863387, 8126057, 6854802 ####[facility] [address] [place] [address] RAD - Preliminary Cat Scan R eporton 10-28-2023 RAD - Preliminary Cat Scan Report [id number]#[id number] Normal [facility] SEROLOGYOrdered By: Miroslava Michael on 10-28-2023 Beta HCG ( test) Ql Negative (10/28/23 6:04 PM) Normal [facility] Man Sero UA with Cult Rflxon 10-28-19 24 Bacteria Auto Ql (U) 1+ [id number] Abnormal Trace [facility] Comment on above: Performed By: #### 4 325026462 ####[facility] [address] [place] [address] Bilirubin Ql (U) 1+ mg/dL Abnormal Negative [facility] Comment on above: Performed By: #### 4 163617004 ####[facility] [address] [place] [address] Clarity (U) Turbid Abnormal Clear [facility] Comment on above: Performed By: #### 4 [id number] ####[facility] [address] [place] [address] Color (U) Yellow Normal Yellow [facility] Comment on above: Result Comment: Micr oscopic readings are only performed on those samples that meet specific criteria set forth by [facility]. Performed By: #### 4 [id number] ####[address] [address] Epithelial cells.squamous Auto (Urine sed) [#/Area] 5-8 Abnormal 0-2 [facility] Comment on above: Performed By: #### 4 547673286 ####[facility] [address] [place] [address] Glucose Ql (U) Negative Normal Negative [facility] Comment on above: Performed By: #### 4 035332913 ####[address] [address] Hemoglobin Auto test strip (U) [Mass/Vol] Negative Normal Negative [facility] Comment on above: Performed By: #### 4 042922844 ####[facility] [address] [place] [address] Ketones Auto test strip Ql (U) Negative Normal Negative [facility] Comment on above: Performed By: #### 4 403256526 ####[facility] [address] [place] [address] Leukocyte esterase Auto test strip Ql (U) Negative Normal Negative [facility] Comment on above: Performed By: #### 4 840374291 ####[facility] [address] [place] [address] Mucus Auto Ql (U) Trace Normal Negative [facility] Comment on above: Performed By: #### 4 555960991 ####[facility] [address] [place] [address] Nitrite Auto test strip Ql (U) Negative Normal Negative [facility] Comment on above: Performed By: #### 4 902774743 ####[place] [address] [place] [address] pH (U) 5.5 [pH] Invalid Interpretation Code 5.0-9.0 [facility] Comment on above: Performed By: #### 4 315934464 ####[facility] [address] [place] [address] Protein Ql (U) Negative Normal Negative [facility] Comment on above: Performed By: #### 4 494781208 ####[address] [address] RBC Ql (U) 0-3 Normal 0-3 [facility] Comment on above: Performed By: #### 4 116973144 ####[address] [address] Specific gravity (U) [Rel density] 1.023 Invalid Interpretation Code 1.005-1.030 [facility] Comment on above: Performed By: #### 4 168173890 ####[place] [address] Urobilinogen (U) [Mass/Vol] Negative Normal Negative [facility] Comment on above: Performed By: #### 4 833110813 ####[address] [address] WBC Auto (Urine sed) [#/Area] 0-5 Normal 0-5 [facility] Comment on above: Performed By: #### 4 728722756 ####[address] [address] Type of Urine collection method Clean Catch Normal [facility] Comment on above: Performed By: #### 4 595205455 ####[address] [address] URINALYSISOrdered By: SYSTEM SYSTEM on 10-28-2023 Bacteria Auto Ql (U) 1+ graded/HPF Invalid Interpretation Code Tracegraded /HPF [facility] UA Auto SS Bilirubin Ql (U) 1+ mg/dL Invalid Interpretation Code Negativemg/ dL [facility] UA Auto SS Clarity (U) Turbid *ABN* (10/28/23 7:59 PM) Invalid Interpretation Code Clear [facility] UA Auto SS Color (U) Yellow 1 (10/28/23 7:59 PM) Normal Yellow [facility] UA Auto SS Comment on above: Interpretive Data: M icroscopic readings are only performed on those samples that meet specific criteria set forth by [facility]. Epithelial cells.squamous Auto (Urine sed) [#/Area] 5-8 graded/HPF Invalid Interpretation Code 0-2graded/H PF [facility] UA Auto SS Glucose Ql (U) Negative Normal Negativemg/ dL [facility] UA Auto SS Hemoglobin Auto test strip (U) [Mass/Vol] Negative Normal Negativemg/ dL [facility] UA Auto SS Ketones Auto test strip Ql (U) Negative Normal Negativemg/ dL [facility] UA Auto SS Leukocyte esterase Auto test strip Ql (U) Negative Normal NegativeLeu /uL [facility] UA Auto SS Mucus Auto Ql (U) Trace graded/LPF Normal Negati vegra ded/LPF [facility] UA Auto SS Nitrite Auto test strip Ql (U) Negative Normal Negativemg/ dL [facility] UA Auto SS pH (U) 5.5 *NA* (10/28/23 7:59 PM) Invalid Interpretation Code 5.0 - 9.0 [facility] UA Auto SS Protein Ql (U) Negative Normal Negativemg/ dL [facility] UA Auto SS RBC Ql (U) 0-3 graded/HPF Normal 0-3graded/H PF [facility] UA Auto SS Specific gravity (U) [Rel density] 1.023 *NA* (10/28/23 7:59 PM) Invalid Interpretation Code 1.005 - 1.030 [facility] UA Auto SS Urobilinogen (U) [Mass/Vol] Negative Normal Negativemg/ dL [facility] UA Auto SS WBC Auto (Urine sed) [#/Area] 0-5 graded/HPF Normal 0-5graded/H PF [facility] UA Auto SS URINALYSISOrdered By: Daniel moreno on 10-28-2023 UA Spec Desc Clean Catch (10/28/23 7:59 PM) Normal [facility] UA Auto SS Work Phone: eGFRon 10-28-2023 eGFR 81 mL/min/1.73 m2 Normal >=59 [facility] Comment on above: Order Comment: Order added by Discern Expert. Performed By: #### 2 577785, 94190728, 7008197, 23645939, 7333605, 4570123 ####[facility] [address] [place] [address] Consent for Treatmenton 09-06 Consent for Treatment [id number] Normal [facility] Discharge Instructionson Discharge Instructions [id number] Normal [facility] ED Clinical Summaryon 2023 ED Clinical Summary (Inserted Image. Lucie ble to display) [address] [address] ED Clinical Summary Person Information Name: MITESH BURGESS [facility] Age: 43 Years : 1980 Sex: Female Language: Cook Islander PCP: Pepe Alcazar MD Marital Status: Phone: [phone] Visit Id: Visit Reason: Sinus Pain/Congestion; Throat [...] 09/28/2023 02:27:06 09/28/2023 02:27:06 09/28/2023 02:27:06 ADDR[place]: [address] [place] [id number] PHYS DOC NOTES: MEDICAL INFORMATION: Prescriptions Given: New Medications [facility]/pharmacy #[id number], [address] [place], [place] [id number], [phone] brompheniramine/dextromet horphan/PSE (Bromfed DM oral syrup) 5 [...] Follow up: With: Address: When: Pepe Alcazar [address] [place] [address], [address] [place] [phone] Business (1) In 7 days 10/05/2023, only if needed DIAGNOSIS: Cough Normal [facility] [facility] ED Note-Physicianon 09-28-19 ED Note-Physician Basic [...] course of cefdinir. She was also taking otac-jut-wmlsvtq sinus medications. She states that her sinuses [...] and Complexity of Problems Differential Diagnosis: [] [facility] Data External documents reviewed: N/A My [...] EDT Influenza A&B Ag Rapid COVID Antigen ([facility]) XR Chest 2 Views Disposition Plan Discharge Prescription List Prescriptions Bromfed DM oral syrup, 5 mL, Oral, QID, PRN Follow-up With When Contact Information Pepe Alcazar In 7 days 10/05/2023 EDT, only if needed [address] [place] [phone] Business (1) Additional Instructions: Patient Education Cough, [...] tab(s) (more content not included)... Normal [facility] Comment on above: Result Comment: Elec [...] these instructions at home: Medicines ? Take iihh-yba-pjzcaer and prescription medicines only as told by [...] a condition that needs treatment. ? Take tyuw-dga-athavtz and prescription medicines only as told by [...] provider. Document Revised: 07/13/2019 Document Reviewed: 07/13/2019 Elsevier Patient Education ? 2022 [employer] Normal [facility] ED Patient Summaryon 024 ED Patient Summary (Inserted Image. Ulcie ble to display) [place] [id number] Patient Discharge Instructions Person Information Name: MITESH BURGESS Age: 43 Years Arrival Date: 09/28/2023 01:06:05 Discharge Diagnosis: Cough Primary Care Physician: Pepe Alcazar MD Provider Information Primary Provider: Dandy Ashton DO [employer] [facility] Director:None The exam and treatment you received in [...] instructions: Follow-up Instructions: With: Address: When: Pepe Inge [address] [place] [address], [place] [address] Business (1) In 7 days 10/05/2023, only if needed In the event that this physician does not participate in your insurance network, please consult with your insurance company to find a nearby participating provider. Patient Education Materials: Hong Romo A MESSAGE TO ALL PATIENTS REGARDING OPIOIDS PRESCRIPTION OPIOIDS: WHAT YOU NEED TO KNOW Prescription opioids can be used to help relieve uxlrdvku-aw-trjpww pain and are often prescribed following a [...] with addiction, tell your health animal care worker and ask for guidance or call [employer]?S National Helpline at 9-633-076-HELP. v Source: Department of (more content not included)... [facility] Influenza A&B Agon 03-23-202 4 Influenzae A Ag Negative Normal Negative [facility] Comment on above: Performed By: #### 2 [id number] ####[facility] [address] [place] [address] Influenzae B Ag Negative Normal Negative [facility] Comment on above: Result Comment: Test sensitivity and specificity vary for age group, specimen type, antigen types, and prevalence of disease. Test results must be evaluated in conjunction with other clinical data available to the physician. Individuals who received nasally administered Influenza A vaccine may have positive test results up to 3 days after vaccination. Performed By: #### 2 [id number], [id number] ####[facility] [address] [place] [address] MICRO OTHER TESTSOrdered By: Hank Noel on 09-28-2023 Influenzae A Ag Negative (09/28/23 1:41 AM) Normal Negative [facility] Sero Influenzae B Ag Negative 1 (09/28/23 1:41 AM) Normal Negative [facility] Comment on above: Interpretive Data: T [...] NEG Ctl Pass (09/28/23 1:41 AM) Normal [facility] Rapid COV Int POS Ctl Pass (09/28/23 1:41 AM) Normal [facility] SARS-CoV+SARS-CoV-2 (COVID-19) Ag IA.rapid Ql (Resp) Not Detected 2 (09/28/23 1:41 AM) Normal Not Detected [facility] Man [facility]ero Comment on above: Interpretive Data: Palomo he [employer] Veritor System for Rapid Detection of SARS-CoV-2 [...] other viruses or pathogens; and, in the [facility], this test is only authorized for the duration of the declaration that circumstances exist justifying the authorization of emergency use of in vitro diagnostics for detection and/or diagnosis of the virus that causes COVID-19 under Section 564(b)(1) of the Act, 21 U.S.C. 360bbb-3(b)(1), unless the authorization is terminated or revoked sooner. Prescriptions/Work Noteson 0 09-28-2023 Prescriptions/Work Notes [id number]#1.00TIFF Normal [facility] Rapid COVID Antigen ([facility])on 09-28-2023 Rapid COV Int NEG Ctl Pass Normal [facility] Comment on above: Performed By: #### 2 [id number] ####[facility] [address] [place] [address] Rapid COV Int POS Ctl Pass Normal [facility] Comment on above: Performed By: #### 2 [id number], [id number] ####[facility] [address] [place] [address] SARS-CoV+SARS-CoV-2 (COVID-19) Ag IA.rapid Ql (Resp) Not detected Normal Not Detected [facility] Comment on above: Result Comment: The [employer] Veritor? System for Rapid Detection of SARS-CoV-2 [...] or revoked sooner. Performed By: #### 2 [id number], [id number] ####[facility] [address] [place] [address] XR Chest 2 Viewson 4 XR Chest [...] = na DAP = na Normal [facility] Monitor Recordon 09-18-2023 Monitor Record [id number]#1.00TIFF Normal [facility] Consent for Treatmenton 09-05 Consent for Treatment [id number]#1.00TIFF Normal [facility] ED Clinical Summaryon 2023 ED Clinical Summary (Inserted Image. Lucie ble to display) [place] [id number] ED Clinical Summary Person Information Name: MITESH BURGESS [facility] Age: 43 Years : 1980 Sex: Female Language: Cook Islander PCP: Pepe Alcazar MD Marital Status: Phone: [phone] Visit Id: Visit Reason: Anxiety; Headache; PANIC [...] 09/17/2023 23:38:36 09/17/2023 23:38:36 09/17/2023 23:38:36 ADDRESS: [address] [place] [address] DR NAOMI Baker [facility] [id number] [facility] DOC NOTES: MEDICAL INFORMATION: Prescriptions Given: [...] Follow up: With: Address: When: Pepe Alcazar [address] [place] [address], [facility] [place] [phone] Business (1) In 3 days DIAGNOSIS: Headache Normal [facility] ED Note-Physicianon 09-17-19 ED Note-Physician Basic Information Time Seen: Dandy Ashton DO 09/17/2023 20:40 Chief Complaint Pt. presents to the ed with c/o headache and panick attack. Pt. 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 pt. is alert and oriented x [...] and Complexity of Problems Differential Diagnosis: [] [facility] Data External documents reviewed: N/A My [...] Information Pepe Alcazar In 3 days [address] [facility] [address] [place] [phone] Business (1) Additional Instructions: Patient Education General [...] not included)... Normal [facility] Comment on above: Result Comment: [...] with your condition: Managing pain ? Take kueh-uyi-lqprmzd and prescription medicines only as told by [...] Reviewed: 11/22/2021 Elsevier Patient Education ? 2022 [employer]. Normal [facility] ED Patient Summaryon 024 ED Patient Summary (Inserted Image. Lucie ble to display) [place] [id number] Patient Discharge Instructions Person Information Name: MITESH BURGESS Age: 43 Years Arrival Date: 09/17/2023 20:38:29 Discharge Diagnosis: Headache Primary Care Physician: Pepe Alcazar MD Provider Information Primary Provider: Dandy Ashton DO [employer] [facility] [employer] Director:None The exam and treatment you received in [...] Follow-up Instructions: With: Address: When: Pepe Alcazar [address] [place] [address], [place] [address] Business (1) In 3 days In the event that this physician does not participate in your insurance network, please consult with your insurance company to find a nearby participating provider. Patient Education Materials: General Headache Without Cause A MESSAGE TO ALL PATIENTS REGARDING OPIOIDS PRESCRIPTION OPIOIDS: WHAT YOU NEED TO KNOW Prescription opioids can be used to help relieve auregphl-ky-jpaxvn pain and are often prescribed following a [...] with addiction, tell your health animal care worker and ask for guidance or call [facility]?S National Helpline at 4-708-964-LIEW. o Source: Department of [facility] (more content not included)... Normal [facility] Monitor Recordon 09-17-2023 Monitor Record [id number]#1.00TIFF [facility] Nonvisit Note - PTon Nonvisit Note - PT Patient cancelled to day's PT session. 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 cxl last two apts. Normal [facility] Nonvisit Note - PTon 024 Nonvisit Note - PT Patient cancelled to day's session, no reason given to REGISTERED MAIL CLERK. Normal [facility] Nonvisit Note - PTon 024 Nonvisit Note - PT Pt. cancelled PT appointment on 08/08/23. States she twisted wrong and is in a lot of pain. Next appointment confirmed. Normal [facility] Nonvisit Note - PTon Nonvisit Note - PT Patient cancelled to day's PT appointment, no reason given to REGISTERED MAIL CLERK. [facility] PT - Orderson 08-02-2023 PT - Orders [id number]#1.00TIFF Normal [facility] Insurance Correspondenceon 0 07-30-2023 Insurance Correspondence caresonellie- ranjeet Reference #: [id number] approved for 72 units of PT - DOS 07/30/2023-10/04/2023 CPT 85266,89967,98269,48071,9 [id number] Reference #: [id number] Description: Outpatient Elective Place Of Service: [facility] Submitting Provider: [facility] Requesting/Ordering Provider: [facility] Servicing/Rendering Provider: [facility], [facility] Facility: Member Information Member Name: Mitesh Patel Id: [id number] Date: 1980 Gender: Female Service Event Diagnosis Code: M54.16 Radiculopathy, lumbar region Procedure: PT - Physical Therapy, Outpatient Line #1 Requested Received Date: 07/30/2023 12:17:22 PM Requested Units: 72 Start Date of Service: 07/30/2023 Authorized Units: 72 End Date of Service: 10/04/2023 Status: Approved Service Event Diagnosis Code: M54.16 Radiculopathy, lumbar region Procedure: 62697 Therapeutic procedure, 1 or more areas, each 15 minutes; aquatic therapy with therapeutic exercises Line #1 Requested Received Date: 07/30/2023 12:17:22 PM Requested Units: 72 Start Date of Service: 07/30/2023 Authorized Units: 72 End Date of Service: 10/04/2023 Status: Approved Service Event Diagnosis Code: M54.16 Radiculopathy, lumbar region Procedure: 16219 Therapeutic procedure, 1 or more areas, each 15 minutes; gait training (includes stair climbing) Line #1 Requested Received Date: 07/30/2023 12:17:22 PM Requested Units: 72 Start Date of Service: 07/30/2023 Authorized Units: 72 End Date of Service: 10/04/2023 Status: Approved Service Event Diagnosis Code: M54.16 Radiculopathy, lumbar region Procedure: 48405 Manual therapy techniques (eg, mobilization/ manipulation, manual lymphatic drainage, manual traction), 1 or more regions, each 15 minutes Line #1 Requested Received Date: 07/30/2023 12:17:22 PM Requested Units: 72 Start Date of Service: 07/30/2023 Authorized Units: 72 End Date of Service: 10/04/2023 Status: Approved Service Event Diagnosis Code: M54.16 Radiculopathy, lumbar region Procedure: 22928 Application of a modality to 1 or more areas; traction, mechanical Line #1 Requested Received Date: 07/30/2023 12:17:22 PM Requested Units: 72 Start Date of Service: 07/30/2023 Authorized Units: 72 End Date of Service: 10/04/2023 Status: Approved Service Event Diagnosis Code: M54.16 Radiculopathy, lumbar region Procedure: 35095 Application of a modality to 1 or more areas; ultrasound, each 15 minutes Line #1 Requested Received Date: 07/30/2023 12:17:22 PM Requested Units: 72 Start Date of Service: 07/30/2023 Authorized Units: 72 End Date of Service: 10/04/2023 Status: Approved Service Event Diagnosis Code: M54.16 Radiculopathy, lumbar region Procedure: 12164 Application of a modality to 1 or more areas; electrical stimulation (manual), each 15 minutes Line #1 Requested Received Date: 07/30/2023 12:17:22 PM Requested Units: 72 Start Date of Service: 07/30/2023 Authorized Units: 72 End Date of Service: 10/04/2023 Status: Approved Service Event Diagnosis Code: M54.16 Radiculopathy, lumbar region Procedure: 12882 Therapeutic procedure, 1 or more areas, each 15 minutes; therapeutic exercises to develop strength and endurance, range of motion and flexibility Line #1 Requested Received Date: 07/30/2023 12:17:22 PM Requested Units: 72 Start Date of Service: 07/30/2023 Authorized Units: 72 End Date of Service: 10/04/2023 Status: Approved [employer] CAREERS Invalid Interpretation Code [employer] [facility] Consent for Treatmenton 07-09 Consent for Treatment [id number]#1.00TIFF Normal [facility] PT - Assessmentson 4 PT - Assessments [id number]#1.00TIFF [facility] PT - Consentson 07-29-2023 PT - Consents [id number]#1.00TIFF [facility] PT - Orderson 07-29-2023 PT - Orders [id number]#1.00TIFF [facility] Nonvisit Note - PTon 024 Nonvisit Note - PT chart reviewed with eval prepped for scheduled eval. [facility] Nonvisit Note - PTon 023 Nonvisit Note - PT chart reviewed with eval prepped for scheduled eval. [facility] Orders Officeon 06-21-2023 Orders Office [id number]#1.00TIFF [facility] Consent for Treatmenton Consent for Treatment [id number]#1.00TIFF [facility] Consultation Noteon 06-10-20 Consultation Note Patient: MITESH [...] BID, # 60 cap(s), Refills(s) 1, Pharmacy: [facility]/pharmacy #[id number], 161, cm, 06/10/23 15:18:00 EST, Height/Length Dosing, 95.2, kg, 04/19/23 8:29:00 EDT, Weight Dosing albuterol HFA 90 mcg/inh MDI: 2 puff(s), Inhalation, QID Shortness of breath or wheezing, 1 EA, Refill(s) 0, qid and prn sob/wheezing, [facility]/pharmacy #[id number], 160, cm, 04/27/20 22:06:00 EDT, Height/Length Dosing, 98, kg, 04/27/20 22:06:00 EDT, Weight Dosing methocarbamol 500 mg Tab: 500 mg = 1 tab(s), Oral, TID, PRN Spasm, X 30 day(s), # 90 tab(s), Refills(s) 2, Pharmacy: [facility]/pharmacy #[id number], 161, cm, 06/10/23 15:18:00 EST, [...] cyst of lumbar spine / SNOMED CT 7080155123 / Confirmed Neuropathy / SNOMED CT 2119961783 / Confirmed Ascending aorta dilation / SNOMED CT 870695874 / Confirmed Anxiety / SNOMED CT 75014936 / Confirmed Bipolar disorder / SNOMED CT 19239055 / Confirmed Labral tear of shoulder / SNOMED CT 146999026 / Confirmed Resolved: At risk for falls / SNOMED CT 677974295 Problem added when Risk for Falls Careplan was initiated. Resolved due to patient discharge. Resolved: Migraine / SNOMED CT 44849691 Resolved: Seasonal allergies / SNOMED CT [id number] Objective Vital Signs 06/10/2023 15:08 EST Peripheral Pulse Rate 76 bpm Respiratory Rate 18 br/min Systolic Blood Pressure 117 mmHg Diastolic Blood Pressure 69 mmHg Mean Arterial Pressure, Cuff 85 mmHg General: Alert and oriented, No acute distress. Eye: Normal conjunctiva. HENT: Normocephalic, Normal hearing. Cardiovascular: No edema. Musculoskeletal Normal range of motion. Normal strength. 5/5 lower extremity strength Integumentary: Warm, Dry, Loda. Injection site well-healed Neurologic: Alert, Oriented. Psychiatric: Cooperative, Appropriate mood & affect. Imp (more content not included)... [facility] Comment on above: Result Comment: Elec tronically Signed By: Ade Talamantes PA-C\.br\Date and Time Signed: 06/10/23 15:27 EST\.br\Electronically Co-Signed By: Hai JAY, Boy Wilson\.br\Date and Time Co-Signed: 06/13/23 10:59 EST Office/Clinic Note-Physician on 06-10-2023 Office/Clinic Note-Physician [id number]#1.00TIF F [facility] Patient Correspondenceon Patient Correspondence [id number]#1.00TIF F [facility] Patient Correspondence [id number]#1.00TIF F [facility] Patient History Officeon Patient History Office [id number]#1.00TIF F [facility] CNOVon 05-08-2023 CNOV Office Visit (NEADFV ) ----- MITESH BURGESS ([id number]) 1980 F Date Time Provider Department 05/08/23 2:30 PM STALIN REYES During your visit today, we recorded the following information about you: Pulse Blood pressure Weight Height 67/minute 111/66 97.2 kg 1.6 m Stalin Reyes MD 05/08/2023 3:40 PM Signed [facility] General Neurology Follow up/ Established patient visit Individuals who were included in, or assisted with the encounter were: Mitesh Burgess Stalin Reyes MD Chief Complaint/Issues: Mitesh Burgess is a 43 year old R handed female w PMH chronic migraine stopped Emgality half year ago, anxiety, depression, skull mass, seen in the [facility] for General Neurology for: Dizziness, headache and tremor Most Recent Neurological Assessment and Plan: Last Filed Values Date of Most Recent Assessment and Plan 12/17/22 Specialty General Neurology Assessment Mitesh Burgess is a 42 year old R handed female w PMH chronic migraine stopped Emgality half year ago, anxiety, depression, skull mass, seen in the [facility] for General Neurology for: 1. Dizziness, headache [...] pain management. Her pain management is absent [facility]. She has been on Lyrica 300 [...] no acute (more content not included)... Normal [employer] MR Brain WO and W contrast I Von 01-24-2023 IMPRESSION: No acute intracranial abnormality. No pathologic enhancement. Few punctate foci of FLAIR hyperintensity in the white matter, which are nonspecific; see above. Otherwise unremarkable enhanced MRI appearance of the brain. 2.7 cm enhancing lesion in the left parietal calvarium, which demonstrates intrinsic T1 hyperintensity and is most compatible with intraosseous hemangioma. Roughener: DONNELL Transcribe Date/Time: Jan 24 2023 2:35P Dictated by : DONAL BURNS MD This examination was interpreted and the report reviewed and electronically signed by: DONAL BURNS MD on Jan 24 2023 2:42PM [facility] DIVISION OF RADIOLOGY * * *Final Report* * * DATE OF EXAM: Jan 24 2023 2:18PM [facility] 0295 - MRI BRAIN WO/W IVCON / PROCEDURE REASON: Brain tumor (HCC) * * * * Physician Interpretation * * * * EXAMINATION: MRI BRAIN WO/W IVCON HISTORY: Brain tumor (HCC) Per the electronic medical record: PMH chronic migraine stopped Emgality half year ago, anxiety, depression, skull mass, seen in the [facility] for General Neurology for: Dizziness, headache and [...] orbits and extracranial soft tissues are unremarkable. DIVISION OF RADIOLOGY Provider, [facility] - 01/24/2023 * * *Final Report* * * DATE [...] anxiety, depression, skull mass, seen in the [facility] for General Neurology for: Dizziness, headache and [...] orbits and extracranial soft tissues are unremarkable. IMPRESSION IMPRESSION: No acute intracranial abnormality. No pathologic enhancement. Few punctate foci of FLAIR hyperintensity in the white matter, which are nonspecific; see above. Otherwise unremarkable enhanced MRI appearance of the brain. 2.7 cm enhancing lesion in the left parietal calvarium, which demonstrates intrinsic T1 hyperintensity and is most compatible with intraosseous hemangioma. Roughener: PSCB Transcribe Date/Time: Jan 24 2023 2:35P Dictated by : DONAL BURNS MD This examination was interpreted and the report reviewed and electronically signed by: DONAL BURNS MD on Jan 24 2023 2:42PM EST [facility] Radiology Study observation (narrative) [facility] MR Brain WO and W contrast I VOrdered By: [facility]cf Provider on 01-24-2023 [facility] CNOVon 12-17-2022 CNOV Office Visit (NEADFV ) ----- MITESH BURGESS ([id number]) 1980 F Date Time Provider Department 12/17/22 1:30 PM STALIN REYES During your visit today, we recorded the following information about you: Pulse Blood pressure Weight Height 71/minute 103/72 101.2 kg 1.6 ky Stalin Reyes MD 12/17/2022 2:28 PM Signed [facility] General Neurology Follow up/ Established patient visit Individuals who were included in, or assisted with the encounter were: Mitesh [place] Jenifer Reyes MD Chief Complaint/Issues: Mitesh Burgess is a 42 year old R handed female w PMH chronic migraine stopped Emgality half year ago, anxiety, depression, skull mass, seen in the [facility] for General Neurology for: Dizziness, headache and [...] anxiety, depression, skull mass, seen in the [facility] for General Neurology for: 1. Dizziness, headache [...] without contra (more content not included)... Normal [employer] Office Visiton 10-13-2022 Follow-up visit [id number] Georgia Burgess 1980 F Date Provider Department Center 10/13/2022 Alejandro-EDUARDO CLEMENTE MP ORTHO MPORTHO No family history on file Level of Service:08134 HI OFFICE/OUTPATIENT ESTABLISHED MOD MDM 30-39 MIN (57,GC) Reason for Visit and Comments: Follow-up [338862] Normal [facility] CHEMISTRYOrdered By: SYSTEM SYSTEM on 09-20-2022 [...] 92.2 fL Normal 80.0 - 100.0 fL [facility] HemeAutoSS Platelet mean volume (Bld) [Entitic vol] 8.3 fL Normal 6.4 - 10.8 fL FT HemeAutoSS Platelets (Bld) [#/Vol] 334.0 E9/L Normal 150.0 - 500.0 E9/L FT HemeAutoSS RBC (Bld) [#/Vol] 4.9 E12/L Normal 4.3 - 5.9 E12/L FT HemeAutoSS WBC corrected for nucl RBC Auto (Bld) [#/Vol] 9.3 E9/L Normal 4.0 - 11.0 E9/L FT [facility]eAuto[facility] Office Visiton 08-28-2022 Follow-up visit [id number] Georgia Burgess 1980 F Date Provider Department Center 08/28/2022 EDUARDO BLAND MP ORTHO MPORTHO No family history on file Level of Service:72361 HI OFFICE/OUTPATIENT NEW LOW MDM 30-44 MINUTES (25) [...] kidneys and bladder was performed by the metal pattern maker. Clerk Funeral Detail static images are submitted for review. FINDINGS: [...] renal calculi. 3. No hydronephrosis. Normal [facility] Covid-19 PCR ([facility])on SARS-CoV-2 (COVID-19) RNA JAYNE+probe Ql (Unsp spec) Not detected Normal NOT DETECTED [facility] Comment on above: Result Comment: This test is not yet approved or cleared by the [place] FDA. When there are no FDA-approved or cleared tests available, and other criteria are met, FDA can make tests available under an emergency access mechanism called an Emergency Use Authorization (EUA). The EUA for this test is supported by the [place] of Health and Human Service's (HHS's) declaration [...] L IPID, URIC, CMP, T7, TSH #### [facility] [address] [place] [address] Dr. Alejandra Crystal INFLUENZA A AND B AGon 08-16 [facility] SEE BELOW Normal [facility] Comment on above: Result Comment: Nega tive for Flu A protein angiten. Infection due to Flu A cannot be ruled out. Flu A angiten in the sample may be below the detection limit of the test. Performed By: #### O BSCRN #### [facility] [address] [place] [address] Dr. Alejandra Crystal INFLUBNEG SEE BELOW Normal [facility] Comment on above: Result Comment: Nega tive for Flu B protein antigen. Infection due to Flu B cannot be ruled out. Flu B antigen in the sample may be below the detection limit of the test. Performed By: #### O BSCRN #### [facility] [address] [place] [address] Dr. Alejandra Crystal INFLUENZA A AG Negative Normal NEGATIVE SEE COMMENT [facility] Comment on above: Performed By: #### O BSCRN #### [facility] [address] [place] [address] Dr. Alejandra Crystal INFLUENZA B AG Negative Normal NEGATIVE SEE COMMENT [facility] Comment on above: Performed By: #### O BSCRN #### [facility] [address] [place] [address] Dr. Alejandra Crystal MRI SHOULDER LT WO [...] by: CHAY MENDOZA Date: 2022-08-13 15:18 Normal [facility] XR ARTHRO SHOULDER LTon 02-0 XR ARTHRO [...] by: CHAY MENDOZA Date: 2022-08-13 15:07 Normal [facility] Covid-19 PCR (CVDTB)on 05-10 SARS-CoV-2 (COVID-19) RNA JAYNE+probe Ql (Unsp spec) Not detected Normal NOT DETECTED [facility] Comment on above: Result Comment: This test is not yet approved or cleared by the [place] FDA. When there are no FDA-approved or cleared tests available, and other criteria are met, FDA can make tests available under an emergency access mechanism called an Emergency Use Authorization (EUA). The EUA for this test is supported by the [place] of Health and Human Service's (HHS's) declaration [...] L IPID, URIC, CMP, T7, TSH #### [facility] [address] [place] [address] Dr. Alejandra Crystal INFLUENZA A AND B AGon 06-06 [facility] Normal [facility] Comment on above: Result Comment: Nega tive for Flu A protein angiten. Infection due to Flu A cannot be ruled out. Flu A angiten in the sample may be below the detection limit of the test. Performed By: #### I NFLUAB #### [facility] [address] [address] [address] Alejandra Crystal INFLUBNEG SEE BELOW Normal [facility] Comment on above: Result Comment: Nega tive for Flu B protein antigen. Infection due to Flu B cannot be ruled out. Flu B antigen in the sample may be below the detection limit of the test. Performed By: #### I NFLUAB #### [facility] [address] [place] [address] Dr. Alejandra Crystal INFLUENZA A AG Negative Normal NEGATIVE SEE COMMENT [facility] Comment on above: Performed By: #### I NFLUAB #### [facility] [address] [address] [address] Alejandra Crystal INFLUENZA B AG Negative Normal NEGATIVE SEE COMMENT [facility] Comment on above: Performed By: #### I NFLUAB #### [facility] [address] [address] [address] Alejandra Crystal INTERNAL CONTROLS Within Normal Limits Normal Wi thin Normal Limits [facility] Comment on above: Performed By: #### I NFLUAB #### [facility] [address] [place], [place] [address] Dr. Alejandra Crystal MRI ABDOMEN WO W [...] CHAY MENDOZA Date: 2022-05-31 09:57 Normal [facility] INSULINon 05-30-2022 Insulin 23.8 uIU/mL Normal 2.6-24.9 [facility] Comment on above: Performed By: #### I NSULIN #### [facility] [address] [place] [address] Dr. Alejandra Crystal CBC AUTO DIFFon 05-29-2022 BASO # 0.0 103/ul Normal 0.0-0.1 [facility] Comment on above: Performed By: #### C BC #### [facility] [address] [place] [address] Dr. Alejandra Crystal Basophils/100 WBC (Bld) 0.6 % Normal 0.2-2.0 [facility] Comment on above: Performed By: #### C BC #### [facility] [address] [place] [address] Dr. Alejandra Crystal EO # 0.1 103/ul Normal 0.0-0.7 [facility] Comment on above: Performed By: #### C BC #### [facility] [address] [place] [address] Dr. Alejandra Crystal Eosinophils/100 WBC (Bld) 1.3 % Normal 0.9-7.0 [facility] Comment on above: Performed By: #### C BC #### [facility] [address] [place] [address] Dr. Alejandra Crystal Erythrocyte distribution width (RBC) [Ratio] 12.5 % Normal 11.0-15.0 [facility] Comment on above: Performed By: #### C BC #### [facility] [address] [place] [address] Dr. Alejandra Crystal Hematocrit (Bld) [Volume fraction] 41.2 % Normal 36.0-48.0 [facility] Comment on above: Performed By: #### C BC #### [facility] [address] [place] [address] Dr. Alejandra Crystal Hemoglobin (Bld) [Mass/Vol] 14.4 g/dL Normal 12.0-16.0 [facility] Comment on above: Performed By: #### C BC #### [facility] [address] [place] [address] Dr. Alejandra Crystal IG # 0.02 10e3/ul Normal 0.00-0.03 [facility] Comment on above: Performed By: #### C BC #### [facility] [address] [place] [address] Dr. Alejandra Crystal IG % 0.3 % Normal 0.0-0.5 [facility] Comment on above: Performed By: #### C BC #### [facility] [address] [place] [address] Dr. Alejandra Crystal LYMPH # 2.1 103/ul Normal 1.2-3.8 [facility] Comment on above: Performed By: #### C BC #### [facility] [address] [place] [address] Dr. Alejandra Crystal Lymphocytes/100 WBC (Bld) 32.5 % Normal 20.5-60.0 [facility] Comment on above: Performed By: #### C BC #### [facility] [address] [place] [address] Dr. Alejandra Crystal MANUAL DIFF REQ NO Normal [facility] Comment on above: Performed By: #### C BC #### [facility] [address] [place] [address] Dr. Alejandra Crystal MCH (RBC) [Entitic mass] 32.1 pg Normal 26.7-34.0 [facility] Comment on above: Performed By: #### C BC #### [facility] [address] [place] [address] Dr. Alejandra Crystal MCHC (RBC) [Mass/Vol] 35.0 g/dL Normal 29.9-35.2 [facility] Comment on above: Performed By: #### C BC #### [facility] [address] [place] [address] Dr. Alejandra Crystal MCV (RBC) [Entitic vol] 91.8 fL Normal 81.0-99.0 [facility] Comment on above: Performed By: #### C BC #### [facility] [address] [place] [address] Dr. Alejandra Crystal MONO # 0.6 103/ul Normal 0.3-0.8 [facility] Comment on above: Performed By: #### C BC #### [facility] [address] [place] [address] Dr. Alejandra Crystal Monocytes/100 WBC (Bld) 8.6 % Normal 1.7-12.0 [facility] Comment on above: Performed By: #### C BC #### [facility] [address] [place] [address] Dr. Alejandra Crystal NEUT # 3.6 103/ul Normal 1.4-6.5 [facility] Comment on above: Performed By: #### C BC #### [facility] [address] [place] [address] Dr. Alejandra Crystal Neutrophils/100 WBC (Bld) 56.7 % Normal 43.0-75.0 [facility] Comment on above: Performed By: #### C BC #### [facility] [address] [place] [address] Dr. Alejandra Crystal Platelet mean volume (Bld) [Entitic vol] 9.4 fL Critically low 9.5-13.5 [facility] Comment on above: Performed By: #### C BC #### [facility] [address] [place] [address] Dr. Alejandra Crystal PLT 294 103/ul Normal 150-450 [facility] Comment on above: Performed By: #### C BC #### [facility] [address] [place] [address] Dr. Alejandra Crystal RBC 4.49 106/ul Normal 4.20-5.40 [facility] Comment on above: Performed By: #### C BC #### [facility] [address] [place] [address] Dr. Alejandra Crystal WBC 6.4 103/ul Normal 4.0-11.0 [facility] Comment on above: Performed By: #### C BC #### [facility] [address] [place] [address] Dr. Alejandra Crystal FREE THYROXINE INDEX T7on FTI 1.78 Normal 1.30-4.50 [facility] Comment on above: Performed By: #### L IPID, URIC, CMP, T7, TSH #### [facility] [address] [address] [address] Alejandra Crystal T3U 33.0 % Normal 30.0-39.0 [facility] Comment on above: Performed By: #### L IPID, URIC, CMP, T7, TSH #### [facility] [address] [address] [address] Alejandra Crystal T4 [Mass/Vol] 5.40 ug/dL Normal 4.80-13.[address] [facility] Comment on above: Performed By: #### L IPID, URIC, CMP, T7, TSH #### [facility] [address] [address] [address] Alejandra Crystal GLYCOHEMOGLOBIN A1Con 2021 ADA RECOMMENDATION SEE BELOW Normal [facility] Comment on above: Result Comment: ADA RECOMMENDED LIMIT 4.0 - 6.0 ADA THERAPEUTIC TARGET < 7.0 ACTION SUGGESTED > 7.0 Performed By: #### O BSCRN #### [facility] [address] [place] [address] Dr. Alejandra Crystal Glucose [Mass/Vol] 94 mg/dL Normal [facility] Comment on above: Performed By: #### O BSCRN #### [facility] [address] [address] [address] Alejandra Crystal HbA1c (Bld) [Mass fraction] 4.9 % Normal 4.5-6.2 [facility] Comment on above: Performed By: #### O BSCRN #### [facility] [address] [address] [address] Alejandra Crystal IRONon 05-29-2022 Iron [Mass/Vol] 74.0 ug/dL Normal 50.0-170.0 [facility] Comment on above: Performed By: #### I NFLUAB #### [facility] [address] [place] [address] Dr. Alejandra Crystal LIPID PROFILEon 05-29-2022 CHOL-HDL RATIO NORM SEE BELOW Normal [facility] Comment on above: Result Comment: 3.3 - 4.4 LOW RISK 4.4 - 7.1 AVERAGE RISK 7.1 - 11.0 MODERATE RISK >11.0 HIGH RISK Performed By: #### L IPID, URIC, CMP, T7, TSH #### [facility] [address] [address] [address] Alejandra Crystal Cholesterol [Mass/Vol] 127 mg/dL Normal <=200 [facility] Comment on above: Performed By: #### L IPID, URIC, CMP, T7, TSH #### [facility] [address] [address] [address] Alejandra Crystal Cholesterol in HDL [Mass/Vol] 33 mg/dL Critically low 40-60 [facility] Comment on above: Performed By: #### L IPID, URIC, CMP, T7, TSH #### [facility] [address] [place] [address] Dr. Alejandra Crystal Cholesterol in LDL [Mass/Vol] 60.4 mg/dL Normal [facility] Comment on above: Performed By: #### L IPID, URIC, CMP, T7, TSH #### [facility] [address] [address] [address] Alejandra Crystal Cholesterol.total/Cho lesterol in HDL [Mass ratio] 3.8 {ratio} Normal [facility] Comment on above: Performed By: #### L IPID, URIC, CMP, T7, TSH #### [facility] [address] [address] [address] Alejandra Crystal HDL NORMAL > or = 60 mg/dl - LO W CARDIOVASCULAR RISK <40 mg/dl - HIGH CARDIOVASCULAR RISK Normal [facility] Comment on above: Performed By: #### L IPID, URIC, CMP, T7, TSH #### [facility] [address] [address] [address] Alejandra Crystal LDL CALC NORMAL SEE BELOW Normal [facility] Comment on above: Result Comment: <100 mg/dl OPTIMAL 100 - 129 mg/dl NEAR OR ABOVE OPTIMAL 130 - 159 mg/dl BORDERLINE HIGH 160 - 189 mg/dl HIGH >190 mg/dl VERY HIGH Performed By: #### L IPID, URIC, CMP, T7, TSH #### [facility] [address] [address] [address] Alejandra Crystal Triglyceride [Mass/Vol] 168 mg/dL Critically high <=150 [facility] Comment on above: Performed By: #### L IPID, URIC, CMP, T7, TSH #### [facility] [address] [address] [address] Alejandra Crystal VLDL CALC 33.6 mg/dL Normal [facility] Comment on above: Performed By: #### L IPID, URIC, CMP, T7, TSH #### [facility] [address] [place] [address] Dr. Alejandra Crystal PROF 14(COMP METB)on 022 Albumin [Mass/Vol] 3.8 g/dL Normal 3.4-5.[address] [facility] Comment on above: Performed By: #### L IPID, URIC, CMP, T7, TSH #### [facility] [address] [place] [address] Dr. Alejandra Crystal Albumin/Globulin [Mass ratio] 1.2 {ratio} Normal [facility] Comment on above: Performed By: #### L IPID, URIC, CMP, T7, TSH #### [facility] [address] [place] [address] Dr. Alejandra Crystal ALP [Catalytic activity/Vol] 111 U/L Normal 46-116 [facility] Comment on above: Performed By: #### L IPID, URIC, CMP, T7, TSH #### [facility] [address] [address] [address] Alejandra Crystal ALT [Catalytic activity/Vol] 18 U/L Normal 14-59 [facility] Comment on above: Performed By: #### L IPID, URIC, CMP, T7, TSH #### [facility] [address] [place] [address] Dr. Alejandra Crystal Anion gap [Moles/Vol] 14.9 mmol/L Normal [facility] Comment on above: Performed By: #### L IPID, URIC, CMP, T7, TSH #### [facility] [address] [place] [address] Dr. Alejandra Crystal AST [Catalytic activity/Vol] 11 U/L Critically low 15-37 [facility] Comment on above: Performed By: #### L IPID, URIC, CMP, T7, TSH #### [facility] [address] [place] [address] Dr. Alejandra Crystal Bilirubin [Mass/Vol] 0.3 mg/dL Normal 0.2-1.0 [facility] Comment on above: Performed By: #### L IPID, URIC, CMP, T7, TSH #### [facility] [address] [place] [address] Dr. Alejandra Crystal Calcium [Mass/Vol] 8.9 mg/dL Normal 8.5-10.[address] [facility] Comment on above: Performed By: #### L IPID, URIC, CMP, T7, TSH #### [facility] [address] [place] [address] Dr. Alejandra Crystal Chloride [Moles/Vol] 107 mmol/L Normal 98-107 [facility] Comment on above: Performed By: #### L IPID, URIC, CMP, T7, TSH #### [facility] [address] [place] [address] Dr. Alejandra Crystal CO2 [Moles/Vol] 22.3 mmol/L Normal 21.0-32.0 [facility] Comment on above: Performed By: #### L IPID, URIC, CMP, T7, TSH #### [facility] [address] [place] [address] Dr. Alejandra Crystal Creatinine [Mass/Vol] 0.82 mg/dL Normal 0.55-1.02 [facility] Comment on above: Performed By: #### L IPID, URIC, CMP, T7, TSH #### [facility] [address] [place] [address] Dr. Alejandra Crystal EGFR-AF HONDURAN >60 Normal >=60 [facility] Comment on above: Performed By: #### L IPID, URIC, CMP, T7, TSH #### [facility] [address] [place] [address] Dr. Alejandra Crystal EGFR-NON AF HONDURAN >60 Normal >=60 [facility] Comment on above: Performed By: #### L IPID, URIC, CMP, T7, TSH #### [facility] [address] [address] [address] Alejandra Crystal Globulin (S) [Mass/Vol] 3.3 g/dL Normal [facility] Comment on above: Performed By: #### L IPID, URIC, CMP, T7, TSH #### [facility] [address] [address] [address] Alejandra Crystal Glucose [Mass/Vol] 91 mg/dL Normal 74-106 [facility] Comment on above: Performed By: #### L IPID, URIC, CMP, T7, TSH #### [facility] [address] [place] [address] Dr. Alejandra Crystal Potassium [Moles/Vol] 4.2 mmol/L Normal 3.5-5.1 [facility] Comment on above: Performed By: #### L IPID, URIC, CMP, T7, TSH #### [facility] [address] [place] [address] Dr. Alejandra Crystal Protein [Mass/Vol] 7.1 g/dL Normal 6.4-8.2 [facility] Comment on above: Performed By: #### L IPID, URIC, CMP, T7, TSH #### [facility] [address] [place] [address] Dr. Alejandra Crystal Sodium [Moles/Vol] 140 mmol/L Normal 136-145 [facility] Comment on above: Performed By: #### L IPID, URIC, CMP, T7, TSH #### [facility] [address] [place] [address] Dr. Alejandra Crystal Urea nitrogen [Mass/Vol] 14.0 mg/dL Normal 7.0-18.0 [facility] Comment on above: Performed By: #### L IPID, URIC, CMP, T7, TSH #### [facility] [address] [place] [address] Dr. Alejandra Crystal Urea nitrogen/Creatinine [Mass ratio] 17.1 mg/mg Normal [facility] Comment on above: Performed By: #### L IPID, URIC, CMP, T7, TSH #### [facility] [address] [place] [address] Dr. Alejandra Crystal TSHon 05-29-2022 TSH 0.767 uIU/mL Normal 0.358-3.740 [facility] Comment on above: Performed By: #### L IPID, URIC, CMP, T7, TSH #### [facility] [address] [address] [address] Alejandra Crystal URIC ACID SERUMon 05-29-2022 Urate [Mass/Vol] 3.4 mg/dL Normal 2.6-6.0 [facility] Comment on above: Performed By: #### L IPID, URIC, CMP, T7, TSH #### [facility] [address] [place] [address] Dr. Alejandra Crystal VITAMIN D 25 OHon 05-29-2022 VIT D 25-OH 16.2 ng/mL Normal [facility] Comment on above: Performed By: #### I NFLUAB #### [facility] [address] [place] [address] Dr. Alejandra Crystal VIT D RANGES SEE BELOW Normal [facility] Comment on above: Result Comment: <20 ng/mL Vit D deficient 20 - <30 ng/mL Vit D insufficient 30 - 100 ng/mL Vit D sufficient >100 ng/mL Potential Toxicity Performed By: #### I NFLUAB #### [facility] [address] [place] [address] Dr. Alejandra Crystal MRI BRAIN WO W [...] are clear. The flow voids of the [place] are visualized, implying that the [...] by: TEZ CUBA Date: 2022-05-17 23:20 Normal [facility] US SINGLE QUAD RT UPPERon US SINGLE [...] by: LETY TAN Date: 2022-05-15 14:53 Normal [facility] COAGULATIONOrdered By: Nacho Mcguire on 04-23-2022 aPTT Coag (PPP) [Time] 35.0 s Normal 25.1 - 36.5 second(s) [facility] Auto Coag INR Coag (PPP) [Relative time] [...] mL/min/1.73 m2 Normal >=59mL/min/ 1.73 m2 [facility] Chem S Glucose [Mass/Vol] 102 mg/dL Normal 55 - 199 mg/dL FT Remisol Potassium [Moles/Vol] 3.6 mmol/L Normal 3.5 - 5.3 mmol/L [facility] Remisol Sodium [Moles/Vol] 135 mmol/L Normal 135 - 145 mmol/L [facility] Remisol Urea nitrogen [Mass/Vol] 12 mg/dL Normal 5 - 21 mg/dL [facility] Remisol Urea nitrogen/Creatinine [Mass ratio] 13 mg/mg Normal 10 - 20 [facility] Remisol CHEMISTRYOrdered By: Lab ROP User on 04-11-2022 Glucose [Mass/Vol] 123 mg/dL High 55 - 99 mg/dL [facility] POC Subsection Comment on above: Result Comment: Madelaine toro RN/ POC Device SN [id number] Invalid Interpretation Code [facility] POC Subsection POC User ID [id number] Invalid Interpretation Code [facility] POC Subsection POC Username CHELE MENDOZA Invalid Interpretation Code [facility] POC Subsection HEMATOLOGYOrdered By: [...] determined as this extends off the image [id number]. IMPRESSION: Low lying left cerebellar tonsil Original [...] abnormal postcontrast enhancement Limited exam with poor [id number] ratio, this is particularly on the postcontrast images IMPRESSION: Limited exam, no acute abnormality observed Normal [facility] CBC AUTO DIFFon 03-29-2022 BASO # 0.0 103/ul Normal 0.0-0.1 [facility] Comment on above: Performed By: #### C BC #### [facility] [address] [place] [address] Dr. Alejandra Crystal Basophils/100 WBC (Bld) 0.4 % Normal 0.2-2.0 [facility] Comment on above: Performed By: #### C BC #### [facility] [address] [place] [address] Dr. Alejandra Crystal EO # 0.0 103/ul Normal 0.0-0.7 [facility] Comment on above: Performed By: #### C BC #### [facility] [address] [place] [address] Dr. Alejandra Crystal Eosinophils/100 WBC (Bld) 0.6 % Critically low 0.9-7.0 [facility] Comment on above: Performed By: #### C BC #### [facility] [address] [place] [address] Dr. Alejandra Crystal Erythrocyte distribution width (RBC) [Ratio] 13.0 % Normal 11.0-15.0 [facility] Comment on above: Performed By: #### C BC #### [facility] [address] [place] [address] Dr. Alejandra Crystal Hematocrit (Bld) [Volume fraction] 42.0 % Normal 36.0-48.0 [facility] Comment on above: Performed By: #### C BC #### [facility] [address] [address] [address] Alejandra Crystal Hemoglobin (Bld) [Mass/Vol] 14.3 g/dL Normal 12.0-16.0 [facility] Comment on above: Performed By: #### C BC #### [facility] [address] [address] [address] Alejandra Crystal IG # 0.04 10e3/ul Critically high 0.00-0.03 [facility] Comment on above: Performed By: #### C BC #### [facility] [address] [place] [address] Dr. Alejandra Crystal IG % 0.6 % Critically high 0.0-0.5 [facility] Comment on above: Performed By: #### C BC #### [facility] [address] [place] [address] Dr. Alejandra Crystal LYMPH # 2.5 103/ul Normal 1.2-3.8 [facility] Comment on above: Performed By: #### C BC #### [facility] [address] [place] [address] Dr. Alejandra Crystal Lymphocytes/100 WBC (Bld) 34.9 % Normal 20.5-60.0 [facility] [facility] Comment on above: Performed By: #### C BC #### [facility] [address] [place] [address] Dr. Alejandra Crystal MANUAL DIFF REQ NO Normal [facility] Comment on above: Performed By: #### C BC #### [facility] [address] [place] [address] Dr. Alejandra Crystal MCH (RBC) [Entitic mass] 31.4 pg Normal 26.7-34.0 [facility] Comment on above: Performed By: #### C BC #### [facility] [address] [place] [address] Dr. Alejandra Crystal MCHC (RBC) [Mass/Vol] 34.0 g/dL Normal 29.9-35.2 [facility] Comment on above: Performed By: #### C BC #### [facility] [address] [place] [address] Dr. Alejandra Crystal MCV (RBC) [Entitic vol] 92.1 fL Normal 81.0-99.0 [facility] Comment on above: Performed By: #### C BC #### [facility] [address] [place] [address] Dr. Alejandra Crystal MONO # 0.6 103/ul Normal 0.3-0.8 [facility] Comment on above: Performed By: #### C BC #### [facility] [address] [place] [address] Dr. Alejandra Crystal Monocytes/100 WBC (Bld) 8.7 % Normal 1.7-12.0 [facility] Comment on above: Performed By: #### C BC #### [facility] [address] [place] [address] Dr. Alejandra Crystal NEUT # 4.0 103/ul Normal 1.4-6.5 [facility] Comment on above: Performed By: #### C BC #### [facility] [address] [place] [address] Dr. Alejandra Crystal Neutrophils/100 WBC (Bld) 54.8 % Normal 43.0-75.0 [facility] Comment on above: Performed By: #### C BC #### [facility] [address] [place] [address] Dr. Alejandra Crystal Platelet mean volume (Bld) [Entitic vol] 9.8 fL Normal 9.5-13.5 [facility] Comment on above: Performed By: #### C BC #### [facility] [address] [place] [address] Dr. Alejandra Crystal PLT 274 103/ul Normal 150-450 [facility] Comment on above: Performed By: #### C BC #### [facility] [address] [place] [address] Dr. Alejandra Crystal RBC 4.56 106/ul Normal 4.20-5.40 [facility] Comment on above: Performed By: #### C BC #### [facility] [address] [place] [address] Dr. Alejandra Crystal WBC 7.2 103/ul Normal 4.0-11.0 [facility] Comment on above: Performed By: #### C BC #### [facility] [address] [place] [address] Dr. Alejandra Crystal ER URINE PROFILEon 2 Bilirubin Ql (U) Negative Normal NEGATIVE [facility] Comment on above: Performed By: #### O BSCRN #### [facility] [address] [place] [address] Dr. Alejandra Crystal Clarity (U) CLEAR Normal CLEAR [facility] Comment on above: Performed By: #### O BSCRN #### [facility] [address] [place] [address] Dr. Alejandra Crystal Color (U) YELLOW Normal YELLOW [facility] Comment on above: Performed By: #### O BSCRN #### [facility] [address] [place] [address] Dr. Alejandra Crystal ERUAHD A micrscopic examina tion will be performed if indicated. Normal [facility] Comment on above: Performed By: #### O BSCRN #### [facility] [address] [place] [address] Dr. Alejandra Crystal Glucose Ql (U) Negative Normal NEGATIVE [facility] Comment on above: Performed By: #### O BSCRN #### [facility] [address] [place] [address] Dr. Alejandra Crystal Hemoglobin Ql (U) Negative Normal NEGATIVE [facility] Comment on above: Performed By: #### O BSCRN #### [facility] [address] [place] [address] Dr. Alejandra Crystal Ketones Ql (U) Negative Normal NEGATIVE [facility] Comment on above: Performed By: #### O BSCRN #### [facility] [address] [place] [address] Dr. Alejandra Crystal LEUKOCYTES Negative Normal NEGATIVE [facility] Comment on above: Performed By: #### O BSCRN #### [facility] [address] [place] [address] Dr. Alejandra Crystal Nitrite Ql (U) Negative Normal NEGATIVE [facility] Comment on above: Performed By: #### O BSCRN #### [facility] [address] [address] [address] Alejandra Crystal pH (U) 6.0 [pH] Normal 5-9 [facility] Comment on above: Performed By: #### O BSCRN #### [facility] [address] [address] [address] Alejandra Crystal SPEC GRAVITY >=1.030 Abnormal 1.005-<=1.[address] [place] [address] Comment on above: Performed By: #### O BSCRN #### [facility] [address] [place] [address] Dr. Alejandra Crystal UA PROTEIN Negative Normal NEGATIVE/ TRACE [facility] Comment on above: Performed By: #### O BSCRN #### [facility] [address] [place] [address] Dr. Alejandra Crystal UR MICRO IND NOT INDICATED Normal [facility] Comment on above: Performed By: #### O BSCRN #### [facility] [address] [place] [address] Dr. Alejandra Crystal Urobilinogen Qn (U) 0.2 {Ernst'U}/dL Normal 0.2 - 1. 0 [facility] Comment on above: Performed By: #### O BSCRN #### [facility] [address] [place] [address] Dr. Alejandra Crystal MAGNESIUMon 03-29-2022 Magnesium [Mass/Vol] 2.1 mg/dL Normal 1.8-2.4 [facility] Comment on above: Performed By: #### I NFLUAB #### [facility] [address] [place] [address] Dr. Alejandra Crystal PREG HCG QUALon 03-29-2022 , QUAL Negative Normal NEGATIVE [facility] Comment on above: Performed By: #### I NSULIN #### [facility] [address] [place] [address] Dr. Alejandra Crystal PROF 14(COMP METB)on 022 Albumin [Mass/Vol] 3.7 g/dL Normal 3.4-5.[address] [facility] Comment on above: Performed By: #### I NFLUAB #### [facility] [address] [place] [address] Dr. Alejandra Crystal Albumin/Globulin [Mass ratio] 1.2 {ratio} Normal [facility] Comment on above: Performed By: #### I NFLUAB #### [facility] [address] [address] [address] Alejandra Crystal ALP [Catalytic activity/Vol] 120 U/L Critically high 46-116 [facility] Comment on above: Performed By: #### I NFLUAB #### [facility] [address] [place] [address] Dr. Alejandra Crystal ALT [Catalytic activity/Vol] 23 U/L Normal 14-59 [facility] Comment on above: Performed By: #### I NFLUAB #### [facility] [address] [place] [address] Dr. Alejandra Crystal Anion gap [Moles/Vol] 12.6 mmol/L Normal [facility] Comment on above: Performed By: #### I NFLUAB #### [facility] [address] [place] [address] Dr. Alejandra Crystal AST [Catalytic activity/Vol] 14 U/L Critically low 15-37 [facility] Comment on above: Performed By: #### I NFLUAB #### [facility] [address] [place] [address] Dr. Alejandra Crystal Bilirubin [Mass/Vol] 0.4 mg/dL Normal 0.2-1.0 [facility] Comment on above: Performed By: #### I NFLUAB #### [facility] [address] [address] [address] Alejandra Crystal Calcium [Mass/Vol] 9.0 mg/dL Normal 8.5-10.[address] [facility] Comment on above: Performed By: #### I NFLUAB #### [facility] [address] [place] [address] Dr. Alejandra Crystal Chloride [Moles/Vol] 109 mmol/L Critically high 98-107 [facility] Comment on above: Performed By: #### I NFLUAB #### [facility] [address] [address] [address] Alejandra Crystal CO2 [Moles/Vol] 21.2 mmol/L Normal 21.0-32.0 [facility] Comment on above: Performed By: #### I NFLUAB #### [facility] [address] [address] [address] Alejandra Crystal Creatinine [Mass/Vol] 0.93 mg/dL Normal 0.55-1.02 [facility] Comment on above: Performed By: #### I NFLUAB #### [facility] [address] [place] [address] Dr. Alejandra Crystal EGFR-AF HONDURAN Normal >=60 [facility] Comment on above: Performed By: #### I NFLUAB #### [facility] [address] [place] [address] Dr. Alejandra Crystal EGFR-NON AF HONDURAN Normal >=60 [facility] Comment on above: Performed By: #### I NFLUAB #### [facility] [address] [address] [address] Alejandra Crystal Globulin (S) [Mass/Vol] 3.2 g/dL Normal [facility] Comment on above: Performed By: #### I NFLUAB #### [facility] [address] [address] [address] Alejandra Crystal Glucose [Mass/Vol] 100 mg/dL Normal 74-106 [facility] Comment on above: Performed By: #### I NFLUAB #### [facility] [address] [address] [address] Alejandra Crystal Potassium [Moles/Vol] 2.8 mmol/L Critically low 3.5-5.1 [facility] Comment on above: Performed By: #### I NFLUAB #### [facility] [address] [place] [address] Dr. Alejandra Crystal Protein [Mass/Vol] 6.9 g/dL Normal 6.4-8.2 [facility] Comment on above: Performed By: #### I NFLUAB #### [facility] [address] [address] [address] Alejandra Crystal Sodium [Moles/Vol] 140 mmol/L Normal 136-145 [facility] Comment on above: Performed By: #### I NFLUAB #### [facility] [address] [address] [address] Alejandra Crystal Urea nitrogen [Mass/Vol] 16.0 mg/dL Normal 7.0-18.0 [facility] Comment on above: Performed By: #### I NFLUAB #### [facility] [address] [address] [address] Alejandra Crystal Urea nitrogen/Creatinine [Mass ratio] 17.2 mg/mg Normal [facility] Comment on above: Performed By: #### I NFLUAB #### [facility] [address] [address] [address] Alejandra Crystal TROPONIN, HIGH SENSITIVITYon 03-29-2022 HSTROP 5.2 pg/mL Normal 4.0-51.3 [facility] Comment on above: Result Comment: CUT- OFF POINTS HAVE BEEN ESTABLISHED BASED ON THE FOURTH UNIVERSAL DEFINITIONS OF MYOCARDIAL INFARCTION. THE UPPER REFERENCE LIMIT (URL) OF TROPONIN, DEFINED THE 99TH PERCENTILE OF cTnI DISTRIBUTION IN A REFERENCE POPULATION, HAS BEEN CONFIRMED THE DECISION THRESHOLD FOR TX DIAGNOSIS. Performed By: #### I NFLUAB #### [facility] [address] [place] [address] Dr. Alejandra Crystal Covid-19 PCR (CVDTBH)on 03-08 SARS-CoV-2 (COVID-19) RNA JAYNE+probe Ql (Unsp spec) Not detected Normal NOT DETECTED [facility] Comment on above: Result Comment: This test is not yet approved or cleared by the [place] FDA. When there are no FDA-approved or cleared tests available, and other criteria are met, FDA can make tests available under an emergency access mechanism called an Emergency Use Authorization (EUA). The EUA for this test is supported by the [employer] of Health and Human Service's (HHS's) declaration [...] L IPID, URIC, CMP, T7, TSH #### [facility] [address] [address] [address] Alejandra Crystal MRI BRAIN WO W [...] CHAY MENDOZA Date: 2022-03-06 07:26 Normal [facility] CHEMISTRYOrdered By: SYSTEM SYSTEM on 02-21-2022 T4 [Mass/Vol] 5.1 ug/dL Normal 4.6 - 9.1 mcg/dL [facility] Remisol TSH Qn 0.20 m[IU]/L Low 0.34 - 5.60 mcIU/mL [facility] Remisol Covid-19 PCR (CVDTB)on 01-06 SARS-CoV-2 (COVID-19) RNA JAYNE+probe Ql (Unsp spec) Not detected Normal NOT DETECTED [facility] Comment on above: Result Comment: When [...] for this test is supported by the [employer] of Health and Human Service's declaration that [...] used). Performed By: #### I NFLUAB #### [facility] [address] [place] [address] Dr. Alejandra Crystal CBC AUTO DIFFon 01-01-2022 BASO # 0.0 103/ul Normal 0.0-0.1 [facility] Comment on above: Performed By: #### O BSCRN #### [facility] [address] [address] [address] Alejandra Crystal Basophils/100 WBC (Bld) 0.7 % Normal 0.2-2.0 [facility] Comment on above: Performed By: #### O BSCRN #### [facility] [address] [address] [address] Alejandra Crystal EO # 0.1 103/ul Normal 0.0-0.7 [facility] Comment on above: Performed By: #### O BSCRN #### [facility] [address] [place] [address] Dr. Alejandra Crystal Eosinophils/100 WBC (Bld) 1.1 % Normal 0.9-7.0 [facility] Comment on above: Performed By: #### O BSCRN #### [facility] [address] [place] [address] Dr. Alejandra Crystal Erythrocyte distribution width (RBC) [Ratio] 13.1 % Normal 11.0-15.0 [facility] Comment on above: Performed By: #### O BSCRN #### [facility] [address] [place] [address] Dr. Alejandra Crystal Hematocrit (Bld) [Volume fraction] 43.4 % Normal 36.0-48.0 [facility] Comment on above: Performed By: #### O BSCRN #### [facility] [address] [place] [address] Dr. Alejandra Crystal Hemoglobin (Bld) [Mass/Vol] 14.5 g/dL Normal 12.0-16.0 [facility] Comment on above: Performed By: #### O BSCRN #### [facility] [address] [place] [address] Dr. Alejandra Crystal IG # 0.02 10e3/ul Normal 0.00-0.03 [facility] Comment on above: Performed By: #### O BSCRN #### [facility] [address] [place] [address] Dr. Alejandra Crystal IG % 0.4 % Normal 0.0-0.5 [facility] Comment on above: Performed By: #### O BSCRN #### [facility] [address] [place] [address] Dr. Alejandra Crystal LYMPH # 1.9 103/ul Normal 1.2-3.8 [facility] Comment on above: Performed By: #### O BSCRN #### [facility] [address] [place] [address] Dr. Alejandra Crystal Lymphocytes/100 WBC (Bld) 34.1 % Normal 20.5-60.0 [facility] Comment on above: Performed By: #### O BSCRN #### [facility] [address] [place] [address] Dr. Alejandra Crystal MANUAL DIFF REQ NO Normal [facility] Comment on above: Performed By: #### O BSCRN #### [facility] [address] [place] [address] Dr. Alejandra Crystal MCH (RBC) [Entitic mass] 30.9 pg Normal 26.7-34.0 [facility] Comment on above: Performed By: #### O BSCRN #### [facility] [address] [place] [address] Dr. Alejandra Crystal MCHC (RBC) [Mass/Vol] 33.4 g/dL Normal 29.9-35.2 [facility] Comment on above: Performed By: #### O BSCRN #### [facility] [address] [place] [address] Dr. Alejandra Crystal MCV (RBC) [Entitic vol] 92.5 fL Normal 81.0-99.0 [facility] Comment on above: Performed By: #### O BSCRN #### [facility] [address] [place] [address] Dr. Alejandra Crystal MONO # 0.4 103/ul Normal 0.3-0.8 [facility] Comment on above: Performed By: #### O BSCRN #### [facility] [address] [place] [address] Dr. Alejandra Crystal Monocytes/100 WBC (Bld) 7.7 % Normal 1.7-12.0 [facility] Comment on above: Performed By: #### O BSCRN #### [facility] [address] [place] [address] Dr. Alejandra Crystal NEUT # 3.0 103/ul Normal 1.4-6.5 [facility] Comment on above: Performed By: #### O BSCRN #### [facility] [address] [place] [address] Dr. Alejandra Crystal Neutrophils/100 WBC (Bld) 56.0 % Normal 43.0-75.0 [facility] Comment on above: Performed By: #### O BSCRN #### [facility] [address] [address] [address] Alejandra Crystal Platelet mean volume (Bld) [Entitic vol] 9.4 fL Critically low 9.5-13.5 [facility] Comment on above: Performed By: #### O BSCRN #### [facility] [address] [place] [address] Dr. Alejandra Crystal PLT 313 103/ul Normal 150-450 [facility] Comment on above: Performed By: #### O BSCRN #### [facility] [address] [place] [address] Dr. Alejandra Crystal RBC 4.69 106/ul Normal 4.20-5.40 [facility] Comment on above: Performed By: #### O BSCRN #### [facility] [address] [place] [address] Dr. Alejandra Crystal WBC 5.4 103/ul Normal 4.0-11.0 [facility] Comment on above: Performed By: #### O BSCRN #### [facility] [address] [place] [address] Dr. Alejandra Crystal FREE T3on 01-01-2022 FREE T3 4.72 pg/mlL Critically high 2.18-3.98 [facility] Comment on above: Performed By: #### L IPID, URIC, CMP, T7, TSH #### [facility] [address] [place] [address] Dr. Alejandra Crystal FREE THYROXINE INDEX T7on FTI 1.25 Critically low 1.30-4.50 [facility] Comment on above: Performed By: #### L IPID, URIC, CMP, T7, TSH #### [facility] [address] [place] [address] Dr. Alejandra Crystal T3U 32.0 % Normal 30.0-39.0 [facility] Comment on above: Performed By: #### L IPID, URIC, CMP, T7, TSH #### [facility] [address] [place]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 weight 97.98 kg Stalin Reyes MD Work Phone: [facility] 11-11-2023 12:48-0400 Diastolic blood pressure 78 mm[Hg] Stalin Reyes MD Work Phone: [facility] 11-11-2023 12:48-0400 Heart rate 94 /min Stalin Reyes MD Work Phone: [facility] 11-11-2023 12:48-0400 SaO2% (BldA) [Mass fraction] 97 % Stalin Reyes MD Work Phone: [facility] 11-11-2023 12:48-0400 Systolic blood pressure 102 mm[Hg] Stalin Reyes MD Work Phone: [facility] 10-28-2023 20:33-0400 Diastolic blood pressure 60 mm[Hg] Rosalio Sy [facility] 10-28-2023 20:33-0400 Heart rate 58 /min Rosalio Sy [facility] 10-28-2023 20:33-0400 Mean blood pressure 74 mm[Hg] Rosalio Sy [facility] 10-28-2023 20:33-0400 Systolic blood pressure 101 mm[Hg] Rosalio Sy [facility] 10-28-2023 19:30-0400 Diastolic blood pressure 54 mm[Hg] Rosalio Sy [facility] 10-28-2023 19:30-0400 Heart rate 61 /min Rosalio Sy [facility] 10-28-2023 19:30-0400 Mean blood pressure 70 mm[Hg] Rosalio Sy [facility] 10-28-2023 19:30-0400 Systolic blood pressure 102 mm[Hg] Rosalio Sy [facility] 10-28-2023 18:33-0400 Diastolic blood pressure 81 mm[Hg] Rosalio Sy [facility] 10-28-2023 18:33-0400 Heart rate 65 /min Rosalio Dan [facility] 10-28-2023 18:33-0400 Mean blood pressure 96 mm[Hg] Rosalio Dan [facility] 10-28-2023 18:33-0400 Respiratory rate 18 /min Rosalio Dan [facility] 10-28-2023 18:33-0400 SaO2% (BldA) [Mass fraction] 96 % Rosalio Dan [facility] 10-28-2023 18:33-0400 Systolic blood pressure 125 mm[Hg] Rosalio Dan [facility] 10-28-2023 17:36-0400 Body temperature 98.78 [degF] Rosalio Dan [facility] 10-28-2023 17:36-0400 Heart rate 78 /min Rosalio Dan [facility] 10-28-2023 17:36-0400 Respiratory rate 16 /min Rosalio Dan [facility] 10-28-2023 17:36-0400 SaO2% (BldA) [Mass fraction] 97 % Rosalio Caberrae [facility] 09-28-2023 01:14-0400 Body temperature 97.7 [degF] Dandy Poli [facility] 09-28-2023 01:14-0400 Diastolic blood pressure 66 mm[Hg] Dandy Poli [facility] 09-28-2023 01:14-0400 Heart rate 82 /min Dandy Poli [facility] 09-28-2023 01:14-0400 Respiratory rate 18 /min Dandy Poli [facility] 09-28-2023 01:14-0400 SaO2% (BldA) [Mass fraction] 99 % Dandy Poli [facility] 09-28-2023 01:14-0400 Systolic blood pressure 112 mm[Hg] Dandy Poli [facility] 09-17-2023 23:18-0400 Diastolic blood pressure 59 mm[Hg] Dandy Poli [facility] 09-17-2023 23:18-0400 Heart rate 67 /min Dandy Poli [facility] 09-17-2023 23:18-0400 Mean blood pressure 79 mm[Hg] Dandy Poli [facility] 09-17-2023 23:18-0400 Respiratory rate 18 /min Dandy Poli [facility] 09-17-2023 23:18-0400 SaO2% (BldA) [Mass fraction] 95 % Dandy Poli [facility] 09-17-2023 23:18-0400 Systolic blood pressure 119 mm[Hg] Dandy Poli [facility] 09-17-2023 22:15-0400 Diastolic blood pressure 63 mm[Hg] Dandy Poli [facility] 09-17-2023 22:15-0400 Heart rate 67 /min Dandy Poli [facility] 09-17-2023 22:15-0400 Mean blood pressure 80 mm[Hg] Dandy Poli [facility] 09-17-2023 22:15-0400 Respiratory rate 16 /min Dandy Poli [facility] 09-17-2023 22:15-0400 SaO2% (BldA) [Mass fraction] 98 % Dandy Poli [facility] 09-17-2023 22:15-0400 Systolic blood pressure 114 mm[Hg] Dandy Poli [facility] 09-17-2023 21:41-0400 Blood Pressure Location Dandy Poli [facility] 09-17-2023 21:41-0400 Diastolic blood pressure 58 mm[Hg] Dandy Poli [facility] 09-17-2023 21:41-0400 Heart rate 71 /min Dandy Poli [facility] 09-17-2023 21:41-0400 Mean blood pressure 75 mm[Hg] Dandy Poli [facility] 09-17-2023 21:41-0400 Respiratory rate 16 /min Dandy Poli [facility] 09-17-2023 21:41-0400 SaO2% (BldA) [Mass fraction] 96 % Dandy Poli [facility] 09-17-2023 21:41-0400 Systolic blood pressure 109 mm[Hg] Dandy Poli [facility] 09-17-2023 20:39-0400 Body temperature 98.42 [degF] Dandy Poli [facility] 09-17-2023 20:39-0400 Heart rate 85 /min Dandy Poli [facility] 06-10-2023 15:08-0500 Diastolic blood pressure 69 mm[Hg] Ade VEEDIMS [facility] 06-10-2023 15:08-0500 Heart rate 76 /min Ade Talamantes [facility] 06-10-2023 15:08-0500 Mean blood pressure 85 mm[Hg] Ade Talamantes [facility] 06-10-2023 15:08-0500 Respiratory rate 18 /min Ade Talamantes [facility] 06-10-2023 15:08-0500 Systolic blood pressure 117 mm[Hg] Ade Talamantes [facility] 05-08-2023 14:22-0400 Body height 160 cm Stalin Reyes MD Work Phone: [facility] 05-08-2023 14:22-0400 Body weight 97.21 kg Stalin Reyes MD Work Phone: [facility] 05-08-2023 14:22-0400 Diastolic blood pressure 66 mm[Hg] Stalin Reyes MD Work Phone: [facility] 05-08-2023 14:22-0400 Heart rate 67 /min Stalin Reyes MD Work Phone: [facility] 05-08-2023 14:22-0400 Systolic blood pressure 111 mm[Hg] Stalin Reyes MD Work Phone: [facility] 05-07-2023 09:20-0400 Heart rate 61 /min Boy Valles [facility] 05-07-2023 09:20-0400 SaO2% (BldA) [Mass fraction] 99 % Boy Valles [facility] 05-07-2023 09:19-0400 Diastolic blood pressure 87 mm[Hg] Boy Valles [facility] 05-07-2023 09:19-0400 Mean blood pressure 101 mm[Hg] Boy Valles [facility] 05-07-2023 09:19-0400 Systolic blood pressure 131 mm[Hg] Boy Hai [facility] 05-07-2023 09:19-0400 Respiratory rate 20 /min Boy Hai [facility] 05-07-2023 09:14-0400 Diastolic blood pressure 64 mm[Hg] Boy Hai [facility] 05-07-2023 09:14-0400 Heart rate 57 /min Boy Hai [facility] 05-07-2023 09:14-0400 SaO2% (BldA) [Mass fraction] 96 % Boy Hai [facility] 05-07-2023 09:14-0400 Systolic blood pressure 119 mm[Hg] Boy Hai [facility] 05-07-2023 07:56-0400 Heart rate 60 /min Boy Hai [facility] 05-07-2023 07:56-0400 SaO2% (BldA) [Mass fraction] 97 % Boy Hai [facility] 05-07-2023 07:56-0400 Body temperature 97.7 [degF] Boy Hai [facility] 05-07-2023 07:56-0400 Diastolic blood pressure 77 mm[Hg] Boy Hai [facility] 05-07-2023 07:56-0400 Mean blood pressure 90 mm[Hg] Boy Hai [facility] 05-07-2023 07:56-0400 Systolic blood pressure 115 mm[Hg] Boy Hai [facility] 05-07-2023 07:56-0400 Respiratory rate 16 /min Boy Valles [facility] 04-19-2023 08:17-0400 Diastolic blood pressure 60 mm[Hg] Ade Talamantes [facility] 04-19-2023 08:17-0400 Heart rate 96 /min Ade Talamantes [facility] 04-19-2023 08:17-0400 Mean blood pressure 70 mm[Hg] Ade Talamantes [facility] 04-19-2023 08:17-0400 Respiratory rate 16 /min Ade Talamantes [facility] 04-19-2023 08:17-0400 SaO2% (BldA) [Mass fraction] 100 % Ade Talamantes [facility] 04-19-2023 08:17-0400 Systolic blood pressure 90 mm[Hg] Ade Talamantes [facility] 03-15-2023 01:05-0400 Diastolic blood pressure 77 mm[Hg] [facility] 03-15-2023 01:05-0400 Heart rate 54 /min [facility] 03-15-2023 01:05-0400 Mean blood pressure 91 mm[Hg] [facility] 03-15-2023 01:05-0400 SaO2% (BldA) [Mass fraction] 95 % [facility] 03-15-2023 01:05-0400 Systolic blood pressure 118 mm[Hg] [facility] 03-15-2023 00:49-0400 Diastolic blood pressure 57 mm[Hg] [facility] 03-15-2023 00:49-0400 Heart rate 64 /min [facility] 03-15-2023 00:49-0400 Mean blood pressure 76 mm[Hg] [facility] 03-15-2023 00:49-0400 SaO2% (BldA) [Mass fraction] 99 % [facility] 03-15-2023 00:49-0400 Systolic blood pressure 113 mm[Hg] [facility] 03-15-2023 00:17-0400 Heart rate 66 /min [facility] 03-15-2023 00:17-0400 Respiratory rate 16 /min [facility] 03-15-2023 00:17-0400 SaO2% (BldA) [Mass fraction] 97 % [facility] 03-14-2023 21:34-0400 Body temperature 98.06 [degF] [facility] 03-14-2023 21:34-0400 Diastolic blood pressure 80 mm[Hg] [facility] 03-14-2023 21:34-0400 Heart rate 72 /min [facility] 03-14-2023 21:34-0400 Respiratory rate 18 /min [facility] 03-14-2023 21:34-0400 Systolic blood pressure 120 mm[Hg] [facility] 02-05-2023 09:41-0400 Body height 159.5 cm Nathanael Ryan MD Work Phone: [facility] 02-05-2023 09:41-0400 Body temperature 97.9 [degF] Nathanael Ryan MD Work Phone: [facility] 02-05-2023 09:41-0400 Body weight 102.19 kg Nathanael Ryna MD Work Phone: [facility] 02-05-2023 09:41-0400 Diastolic blood pressure 64 mm[Hg] Nathanael Ryan MD Work Phone: [facility] 02-05-2023 09:41-0400 Heart rate 75 /min Nathanael Ryan MD Work Phone: [facility] 02-05-2023 09:41-0400 Respiratory rate 18 /min Nathanael Ryan MD Work Phone: [facility] 02-05-2023 09:41-0400 SaO2% (BldA) [Mass fraction] 99 % Nathanael Ryan MD Work Phone: [facility] 02-05-2023 09:41-0400 Systolic blood pressure 110 mm[Hg] Nathanael Ryan MD Work Phone: [facility] 10-01-2022 10:36-0400 Diastolic blood pressure 83 mm[Hg] Ade Talamantes [facility] 10-01-2022 10:36-0400 Heart rate 71 /min Ade Talamantes [facility] 10-01-2022 10:36-0400 Mean blood pressure 100 mm[Hg] Ade Talamantes [facility] 10-01-2022 10:36-0400 Respiratory rate 18 /min Ade Talamantes [facility] 10-01-2022 10:36-0400 Systolic blood pressure 133 mm[Hg] Ade Talamantes [facility] 08-14-2022 10:13-0500 Heart rate 70 /min Boy Valles [facility] 08-14-2022 10:13-0500 SaO2% (BldA) [Mass fraction] 96 % Boy Valles [facility] 08-14-2022 10:13-0500 Respiratory rate 14 /min Boy Valles [facility] 08-14-2022 10:12-0500 Diastolic blood pressure 71 mm[Hg] Boy Hai [facility] 08-14-2022 10:12-0500 Mean blood pressure 86 mm[Hg] Boy Hai [facility] 08-14-2022 10:12-0500 Systolic blood pressure 118 mm[Hg] Boy Hai [facility] 08-14-2022 10:08-0500 Diastolic blood pressure 76 mm[Hg] Boy Hai [facility] 08-14-2022 10:08-0500 Heart rate 69 /min Boy Hai [facility] 08-14-2022 10:08-0500 Respiratory rate 14 /min Boy Hai [facility] 08-14-2022 10:08-0500 SaO2% (BldA) [Mass fraction] 96 % Boy Hai [facility] 08-14-2022 10:08-0500 Systolic blood pressure 126 mm[Hg] Boy Hai [facility] 08-14-2022 09:29-0500 Heart rate 79 /min Boy Hai [facility] 08-14-2022 09:29-0500 SaO2% (BldA) [Mass fraction] 97 % Boy Hai [facility] 08-14-2022 09:29-0500 Diastolic blood pressure 73 mm[Hg] Boy Hai [facility] 08-14-2022 09:29-0500 Mean blood pressure 88 mm[Hg] Boy Hai [facility] 08-14-2022 09:29-0500 Systolic blood pressure 118 mm[Hg] Boy Hai [facility] 08-14-2022 09:28-0500 Body temperature 97.7 [degF] Boy Valles [facility] 08-14-2022 09:28-0500 Respiratory rate 12 /min Boy Valles [facility] 05-18-2022 11:17-0500 Diastolic blood pressure 72 mm[Hg] Ade Talamantes [facility] 05-18-2022 11:17-0500 Heart rate 80 /min Ade Talamantes [facility] 05-18-2022 11:17-0500 Mean blood pressure 88 mm[Hg] Ade Talamantes [facility] 05-18-2022 11:17-0500 Respiratory rate 16 /min Ade Talamantes [facility] 05-18-2022 11:17-0500 Systolic blood pressure 120 mm[Hg] Ade Talamantes [facility] 04-11-2022 17:00-0400 Diastolic blood pressure 83 mm[Hg] Jim Ramirez [facility] 04-11-2022 17:00-0400 Heart rate 76 /min Jim Ramirez [facility] 04-11-2022 17:00-0400 Mean blood pressure 94 mm[Hg] Jim Ramirez [facility] 04-11-2022 17:00-0400 Respiratory rate 20 /min Jim Ramirez [facility] 04-11-2022 17:00-0400 SaO2% (BldA) [Mass fraction] 98 % Jim Ramirez [facility] 04-11-2022 17:00-0400 Systolic blood pressure 117 mm[Hg] Jim James [facility] 04-11-2022 16:30-0400 Diastolic blood pressure 78 mm[Hg] Jim James [facility] 04-11-2022 16:30-0400 Heart rate 77 /min Jim James [facility] 04-11-2022 16:30-0400 Mean blood pressure 92 mm[Hg] Jim James [facility] 04-11-2022 16:30-0400 Respiratory rate 14 /min Jim James [facility] 04-11-2022 16:30-0400 SaO2% (BldA) [Mass fraction] 96 % Jim James [facility] 04-11-2022 16:30-0400 Systolic blood pressure 121 mm[Hg] Jim James [facility] 04-11-2022 16:00-0400 Diastolic blood pressure 92 mm[Hg] Jim James [facility] 04-11-2022 16:00-0400 Heart rate 75 /min Jim James [facility] 04-11-2022 16:00-0400 Mean blood pressure 110 mm[Hg] Jim James [facility] 04-11-2022 16:00-0400 Respiratory rate 22 /min Jim James [facility] 04-11-2022 16:00-0400 Systolic blood pressure 146 mm[Hg] Jim James [facility] 04-11-2022 15:01-0400 gluc 123 mg/dL Jim Ramirez [facility] 04-11-2022 15:01-0400 gluc Jimcristina Ramirez [facility] 04-11-2022 14:46-0400 Body temperature 98.6 [degF] Jim Ramirez [facility] 04-11-2022 14:46-0400 Heart rate 86 /min Jim Ramirez [facility] 04-11-2022 14:46-0400 Respiratory rate 18 /min Jim Ramirez [facility] 04-09-2022 14:22-0400 Diastolic blood pressure 64 mm[Hg] Ade VEEDIMS [facility] 04-09-2022 14:22-0400 Heart rate 79 /min Ade VEEDIMS [facility] 04-09-2022 14:22-0400 Mean blood pressure 86 mm[Hg] Ade VEEDIMS [facility] 04-09-2022 14:22-0400 Respiratory rate 14 /min Ade VEEDIMS [facility] 04-09-2022 14:22-0400 Systolic blood pressure 129 mm[Hg] Ade VEEDIMS [facility] 02-09-2022 10:10-0400 Diastolic blood pressure 66 mm[Hg] Ade VEEDIMS [facility] 02-09-2022 10:10-0400 Heart rate 72 /min Ade VEEDIMS [facility] 02-09-2022 10:10-0400 Mean blood pressure 78 mm[Hg] Ade VEEDIMS [facility] 02-09-2022 10:10-0400 Respiratory rate 16 /min Ade VEEDIMS [facility] 02-09-2022 10:10-0400 Systolic blood pressure 103 mm[Hg] Ade VEEDIMS [facility] 01-16-2022 15:04-0400 Diastolic blood pressure 77 mm[Hg] Boy Hai [facility] 01-16-2022 15:04-0400 Heart rate 73 /min Boy Hai [facility] 01-16-2022 15:04-0400 Mean blood pressure 89 mm[Hg] Boy Hai [facility] 01-16-2022 15:04-0400 SaO2% (BldA) [Mass fraction] 95 % Boy Hai [facility] 01-16-2022 15:04-0400 Systolic blood pressure 115 mm[Hg] Boy Hai [facility] 01-16-2022 15:04-0400 Respiratory rate 12 /min Boy Hai [facility] 01-16-2022 14:58-0400 Diastolic blood pressure 49 mm[Hg] Boy Hai [facility] 01-16-2022 14:58-0400 Heart rate 71 /min Boy Hai [facility] 01-16-2022 14:58-0400 Respiratory rate 12 /min Boy Hai [facility] 01-16-2022 14:58-0400 SaO2% (BldA) [Mass fraction] 97 % Boy Hai [facility] 01-16-2022 14:58-0400 Systolic blood pressure 117 mm[Hg] Boy Hai [facility] 01-16-2022 14:41-0400 Body temperature 98.6 [degF] Boy Hai [facility] 01-16-2022 14:41-0400 Diastolic blood pressure 57 mm[Hg] Boy Hai [facility] 01-16-2022 14:41-0400 Heart rate 73 /min Byo Hai [facility] 01-16-2022 14:41-0400 Mean blood pressure 74 mm[Hg] Boy Hai [facility] 01-16-2022 14:41-0400 Respiratory rate 12 /min Boy Hai [facility] 01-16-2022 14:41-0400 SaO2% (BldA) [Mass fraction] 98 % Boy Hai [facility] 01-16-2022 14:41-0400 Systolic blood pressure 109 mm[Hg] Boy Hai [facility] 11-17-2021 08:50-0400 Diastolic blood pressure 76 mm[Hg] Adeanca Talamantes [facility] 11-17-2021 08:50-0400 Heart rate 62 /min Ade Talamantes [facility] 11-17-2021 08:50-0400 Mean blood pressure 96 mm[Hg] Ade Talamantes [facility] 11-17-2021 08:50-0400 Respiratory rate 18 /min Ade Talamantes [facility] 11-17-2021 08:50-0400 Systolic blood pressure 135 mm[Hg] Ade Talamantes [facility] 10-30-2021 07:57-0400 Diastolic blood pressure 77 mm[Hg] Boy Ahi [facility] 10-30-2021 07:57-0400 Heart rate 59 /min Boy Hai [facility] 10-30-2021 07:57-0400 Mean blood pressure 89 mm[Hg] Boy Hai [facility] 10-30-2021 07:57-0400 SaO2% (BldA) [Mass fraction] 98 % Boy Hai [facility] 10-30-2021 07:57-0400 Systolic blood pressure 113 mm[Hg] Boy Hai [facility] 10-30-2021 07:49-0400 Diastolic blood pressure 72 mm[Hg] Boy Hai [facility] 10-30-2021 07:49-0400 Heart rate 61 /min Boy Hai [facility] 10-30-2021 07:49-0400 Respiratory rate 16 /min Boy Hai [facility] 10-30-2021 07:49-0400 SaO2% (BldA) [Mass fraction] 97 % Boy Hai [facility] 10-30-2021 07:49-0400 Systolic blood pressure 103 mm[Hg] Boy Hai [facility] 10-30-2021 07:18-0400 Body temperature 98.24 [degF] Boy Hai [facility] 10-30-2021 07:18-0400 Diastolic blood pressure 64 mm[Hg] Boy Hai [facility] 10-30-2021 07:18-0400 Heart rate 72 /min Boy Hai [facility] 10-30-2021 07:18-0400 Mean blood pressure 74 mm[Hg] Boy Hai [facility] 10-30-2021 07:18-0400 Respiratory rate 14 /min Boy Valles [facility] 10-30-2021 07:18-0400 SaO2% (BldA) [Mass fraction] 97 % Boy Valles [facility] 10-30-2021 07:18-0400 Systolic blood pressure 95 mm[Hg] Boy Valles [facility] Encounters Encounter Date Encounter Type Care Provider Facility Start: 02-01-2025 End: 02-01-2025 ambulatory Joaquin Matos Facility:[facility] Start: 01-20-2025 ambulatory Devon Sanders acility:[facility] Start: 01-04-2025 End: 01-04-2025 ambulatory Ade Talamantes Facility:[facility] Start: 01-04-2025 End: 01-04-2025 Patient encounter procedure Ade Talamantes [facility] Start: 09-01-2024 End: 09-01-2024 ambulatory Ade Talamantes Facility:[facility] Start: 09-01-2024 End: 09-01-2024 Patient encounter procedure Ade Talamantes [facility] Start: 08-25-2024 End: 08-25-2024 ambulatory Ade Talamantes Facility:[facility] Start: 08-25-2024 End: 08-25-2024 Patient encounter procedure Ade Talamantes [facility] Start: 08-20-2024 End: 08-20-2024 Emergency department patient visit Pepe Alcazar MD Work Phone: [facility] Work Phone: Start: 08-18-2024 Registered Recurring Pepe toribio MD Work Phone: [facility] Start: 08-04-2024 End: 08-04-2024 ambulatory Ade Talamantes Facility:[facility] Start: 08-04-2024 End: 08-04-2024 Patient encounter procedure Ade Talamantes [facility] Start: 06-12-2024 End: 06-12-2024 Emergency department patient visit Dandy SKetan Ashton [facility] Start: 06-05-2024 End: 06-05-2024 ambulatory CHRISTIE SOTO Facility:[facility] Start: 06-05-2024 End: 06-05-2024 Patient encounter procedure Ulises Kaur [facility] Start: 05-15-2024 End: 05-15-2024 ambulatory Tran Gu PT Work Phone: [facility] Comment on above: Lumbar radiculopathy (Primary Dx) Start: 05-15-2024 End: 05-15-2024 Bamboo flowsheet Tran A Min PT Work Phone: [facility] Start: 05-15-2024 End: 05-15-2024 Bamboo flowsheet Tran A Min PT Work Phone: [facility] Start: 05-12-2024 End: 05-12-2024 ambulatory TRAN Jimmie GU Not Available Start: 05-11-2024 End: 05-11-2024 ambulatory Tran A Min PT Work Phone: [facility] Comment on above: Lumbar radiculopathy (Primary Dx) Start: 05-08-2024 End: 05-11-2024 ambulatory Gustavo Garcia REGISTERED MAIL CLERK [facility] Comment on above: Lumbar radiculopathy (Primary Dx) Start: 05-08-2024 End: 05-08-2024 Bamboo flowsheet Gustavo Garcia REGISTERED MAIL CLERK [facility] Start: 05-08-2024 End: 05-08-2024 Bamboo flowsheet Gustavo Garcia REGISTERED MAIL CLERK [facility] Start: 05-04-2024 End: 05-05-2024 ambulatory Gustavo Garcia REGISTERED MAIL CLERK [facility] Comment on above: Lumbar radiculopathy (Primary Dx) Start: 05-04-2024 End: 05-04-2024 Bamboo flowsheet Gustavo Garcia REGISTERED MAIL CLERK [facility] Start: 05-04-2024 End: 05-04-2024 Bamboo flowsheet Gustavo Garcia REGISTERED MAIL CLERK [facility] Start: 04-27-2024 End: 04-28-2024 ambulatory Gustavo Garcia REGISTERED MAIL CLERK [facility] Comment on above: Lumbar radiculopathy (Primary Dx) Start: 04-27-2024 End: 04-27-2024 Bamboo flowsheet Gustavo Garcia REGISTERED MAIL CLERK [facility] Start: 04-27-2024 End: 04-27-2024 Bamboo flowsheet Gustavo Garcia REGISTERED MAIL CLERK [facility] Start: 04-24-2024 End: 04-24-2024 ambulatory Tran Gu PT Work Phone: [facility] Comment on above: Lumbar radiculopathy (Primary Dx) Start: 04-24-2024 End: 04-24-2024 Bamboo flowsheet Tran Gu PT Work Phone: [facility] Start: 04-24-2024 End: 04-24-2024 Bamboo flowsheet Tran Gu PT Work Phone: [facility] Start: 04-08-2024 End: 04-08-2024 Refill Stalin Reyes MD Work Phone: Neurology Comment on above: Refill Request Start: 04-06-2024 End: 04-06-2024 ambulatory Ade Talamantes Facility:[facility] Start: 04-06-2024 End: 04-06-2024 Patient encounter procedure Ade Talamantes [facility] Start: 03-04-2024 End: 03-04-2024 Subsequent hospital visit by physician Mri [facility] Devora (1.5t) Work Phone: Radiology Comment on above: Hemangioma of bone [ D18.09] Start: 03-04-2024 End: 03-04-2024 ambulatory Andreas French RT(R) Radiology Comment on above: Radiology MRI Start: 03-04-2024 End: 03-04-2024 Patient encounter procedure Andreas Valente Manolo RT(R) Radiology Start: 02-07-2024 End: 02-07-2024 [facility] Start: 02-07-2024 End: 02-07-2024 Patient encounter procedure Gabriela Vaughn 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 Work Phone: [facility] Comment on above: Skull lesion (Primar y Dx) Start: 01-28-2024 End: 01-29-2024 ambulatory MIRANDA JOSE Not Available Start: 01-17-2024 End: 01-17-2024 ambulatory GUSTAVO GARCIA Not Available Start: 12-23-2023 End: 12-23-2023 ambulatory GUSTAVO GARCIA Not Available Start: 12-20-2023 E-mail encounter fro m caregiver Self [facility] Start: 12-20-2023 Patient encounter procedure Self [facility] Comment on above: Upcoming Appointment s Start: 12-20-2023 End: 12-20-2023 ambulatory GUSTAVO GARCIA Not Available Start: 12-09-2023 End: 12-09-2023 ambulatory GUSTAVO GARCIA Not Available Start: 12-04-2023 End: 12-04-2023 ambulatory MIRANDA JOSE Not Available Start: 11-11-2023 End: 11-11-2023 ambulatory PEPE Ky ALCAZAR Facility:[facility] Start: 11-11-2023 End: 11-11-2023 Patient encounter procedure [...] encounter procedure CHELE EPSTEIN [facility] Start: 10-28-2023 End: 10-28-2023 Emergency department patient visit Rosalio Dan [facility] Start: 09-28-2023 End: 09-28-2023 Emergency department patient visit Dandy Ashton [facility] Start: 09-17-2023 End: 09-17-2023 Emergency department patient visit Dandy Ashton [facility] Start: 07-29-2023 End: 10-06-2023 ambulatory [facility] Facility:[facility] Start: 06-25-2023 End: 07-03-2023 Pre-admission assessment Ade Talamantes [facility] Start: 06-10-2023 End: 06-10-2023 ambulatory Ade Hamlin Facility:[facility] Start: 06-10-2023 End: 06-10-2023 Pain Management Ade Talamantes [facility] Start: 05-08-2023 End: 05-08-2023 ambulatory PEPE Kendall Dank Facility:[facility] Start: 05-08-2023 End: 05-08-2023 Patient encounter procedure Stalin Reyes MD Work Phone: Neurology Comment on above: Radiculopathy, lumba r region (Primary Dx); Intractable chronic migraine without aura and without status migrainosus; Essential tremor; Depression, unspecified depression type; Anxiety Start: 05-07-2023 End: 05-07-2023 Pain Management Boy Valles [facility] Start: 04-19-2023 End: 04-19-2023 Pain Management Ade Talamantes [facility] Start: 03-14-2023 End: 03-15-2023 Emergency department patient visit Chandni Hart [facility] Start: 02-05-2023 End: 02-05-2023 Patient encounter procedure Nathanael Ryan MD Work Phone: [facility] Comment on above: Hemangioma of bone ( Primary Dx); Brain tumor (HCC) Start: 01-24-2023 ambulatory Ade Valderrama RT(R) Ra diology Comment on above: Radiology MRI Start: 01-24-2023 Patient encounter procedure Ade Valderrama RT(R) [facility] [place] Start: 01-24-2023 End: 01-24-2023 Subsequent hospital visit by physician Mri [facility] Devora (1.5t) Work Phone: Radiology Comment on above: Brain tumor (HCC) [D 49.6] Start: 12-26-2022 Telephone encounter Self [facility] Comment on above: Triage (Internal) Start: 12-18-2022 Telephone encounter Keesha delacruz RN Work Phone: [facility] Comment on above: Insurance Authorizat ion (Emgality 120MG/ML auto-injectors (migraine)/) Start: 12-17-2022 End: 12-17-2022 ambulatory [facility] Facility:[facility] Start: 10-13-2022 End: 10-13-2022 ambulatory EDUARDO [facility] Start: 10-01-2022 End: 10-01-2022 Pain Management Ade Talamantes [facility] Start: 09-20-2022 End: 09-20-2022 Patient encounter procedure Pepe Alcazar [facility] Start: 08-28-2022 ambulatory EDUARDO [facility] Start: 08-25-2022 End: 08-26-[address] PEPE ALCAZAR . Facility:[facility] Start: 08-16-2022 End: 08-16-[address] PEPE ALCAZAR . Facility:[facility] Start: 08-14-2022 End: 08-14-2022 Pain Management Boy Valles [facility] Start: 08-13-2022 End: 08-13-[address] PEPE ALCAZAR . Facility:[facility] Start: 07-17-2022 End: 08-01-2022 Pre-admission assessment Boy Valles [facility] Start: 07-03-2022 End: 07-03-2022 Pain Management Boy Valles [facility] Start: 06-06-2022 End: 06-06-[address] PEPE ALCAZAR . Facility:[facility] Start: 06-04-2022 Encounter for genera l adult medical examination without abnormal findings DR PEPE ALCAZAR . [facility] Start: 05-29-2022 End: 05-30-[address] PEPE ALCAZAR . Facility:[facility] Start: 05-29-2022 End: 05-30-2022 Encounter for general adult medical examination without abnormal findings DR PEPE ALCAZAR . Facility:[facility] Start: 05-18-2022 End: 05-18-2022 Pain Management Ade Talamantes [facility] Start: 05-17-2022 End: 05-18-[address] PEPE ALCAZAR . Facility:[facility] Start: 05-15-2022 End: 05-16-[address] PEPE ALCAZAR . Facility:[facility] Start: 04-23-2022 End: 04-23-2022 Patient encounter procedure MIRANDA CAT [facility] Start: 04-11-2022 End: 04-11-2022 Emergency department patient visit Jim KendallKetan Ramirez [facility] Start: 04-09-2022 End: 04-09-2022 Pain Management Ade Talamantes [facility] Start: 04-09-2022 End: 04-10-[address] PEPE ALCAZAR . Facility:[facility] Start: 03-29-2022 End: 03-29-2022 ambulatory MARANDA BARRERA . Facility:[facility] Start: 03-19-2022 End: 03-19-[address] PEPE ALCAZAR . Facility:[facility] Start: 03-05-2022 End: 03-06-[address] PEPE ALCAZAR . Facility:[facility] Start: 02-21-2022 End: 02-21-2022 Patient encounter procedure ADE AMARO [facility] Start: 02-09-2022 End: 02-09-2022 Pain Management Ade Talamantes [facility] Start: 01-29-2022 End: 01-29-[address] PEPE ALCAZAR . Facility:[facility] Start: 01-16-2022 End: 01-16-2022 Pain Management Boy Valles [facility] Start: 01-05-[address] PEPE [...] 11-17-2021 End: 11-17-2021 Pain Management Ade Talamantes [facility] Start: 10-30-2021 End: 10-30-2021 Pain Management Boy Valles [facility] Start: 10-07-2017 End: 10-08-2017 Ambulatory REFERRED SELF Facility:[facility] Procedures Date Procedure Procedure Detail Performing Clinician Start: 08-20-2024 CT of head without contrast Pepe Alcazar MD Work Phone: Start: 08-20-2024 CT of lumbar spine w ithout contrast Pepe Alcazar MD Work Phone: Start: 03-04-2024 Mri brain brain stem w/o w/contrast material Nathanael Ryan MD Work Phone: Start: 05-07-2023 Injection of nerve r oot of lumbar spine using fluoroscopic guidance Ade Talamantes Comment on above: L4-L5-50% relief for 1 week Start: 01-24-2023 Mri brain brain stem w/o w/contrast material Stalin Reyes MD Work Phone: Start: 10-13-2022 Follow-up visit Follow-up EDUARDO HYDE Start: 08-14-2022 Injection of nerve r oot of lumbar spine using fluoroscopic guidance Pepe Alcazar Comment on above: 50% relief Start: 01-16-2022 Injection of sacroil iac joint Ade Talamantes Comment on above: left SIJI 45% relief [...] (2 - Td or Tdap) [facility] Start: 05-15-2024 End: 05-15-2024 ambulatory 05/15/2024 3:30 PM EST Treatment [facility] [address] [place] [id number] Tran Gu, PT [address] [place] [address] [facility] Start: 05-11-2024 End: 05-11-2024 ambulatory 05/11/2024 5:45 PM EST Treatment [facility] [address] [place] [address] Tran Gu, PT [address] [place] [address] [facility] Start: 05-08-2024 End: 05-08-2024 ambulatory [facility] Comment on above: Arrived Start: 05-04-2024 End: 05-04-2024 ambulatory 05/04/2024 5:00 PM EDT Treatment [facility] [address] [place] [address] Gustavo Garcia, BRANDON [facility] Start: 05-01-2024 End: 05-01-2024 ambulatory 05/01/2024 4:15 PM EDT Treatment [facility] [address] [place] [address] Gustavo Garcia PTA [facility] Start: 04-29-2024 End: 04-29-2024 ambulatory 04/29/2024 2:30 PM EDT Treatment [facility] [address] [place] [address] Gustavo Garcia PTA [facility] Start: 04-28-2024 End: 04-28-2024 ambulatory 04/28/2024 4:15 PM EDT Treatment [facility] [address] [place] [id number] Felix Duarte PTA [facility] Start: 04-27-2024 End: 04-27-2024 ambulatory 04/27/2024 5:00 PM EDT Treatment [facility] [address] [place] [address] Gustavo Garcia PTA Arrived [facility] Comment on above: Arrived Start: 04-24-2024 End: 04-24-2024 ambulatory 04/24/2024 4:00 PM EDT Evaluation [facility] [address] [place] [address] Tran Gu, PT [address] [place] [address] Arrived [facility] Comment on above: Arrived Start: 2024 Diabetes Screening Diabetes Screenin g [facility] Start: 2024 Lipid panel Lipid Screening [facility] Start: 2024 Screening for malign ant neoplasm of colon [facility] Start: 03-10-2024 End: 03-10-2024 ambulatory 03/10/2024 2:45 PM EDT OT/PT/Speech Visit Physical Therapy [address] [place], [place] [id number] Eunice Mercado, PT [address] [place] [address] Back of head and neck hurt the worst. Physical Therapy Comment on above: Back of head and nec k hurt the worst. Start: 03-08-2024 Covid-19 Vaccine ( season) Covid-19 Vaccine () [facility] Start: 03-08-2024 Covid-19 Vaccine () Covid-19 Vaccine () [facility] Start: 03-08-2024 Influenza vaccination C [facility] Start: 03-04-2024 End: 03-04-2024 Patient encounter procedure 03/04/2024 3:20 PM EDT Appointment Radiology [address] [place] [address] MRI BRAIN WO/W IVCON Radiology Comment on above: MRI BRAIN WO/W IVCON Start: 02-07-2024 End: 02-07-2024 Patient encounter procedure 02/07/2024 11:00 AM EDT Office Visit [facility] [facility] [address] [place] [address] Gabriela Bill APRN.MANAGER CORPORATE RESPONSIBILITY [address] [place] [address] Patient is requesting that the MRI be done at [facility] and her appointment with the [facility] be in person [facility] Comment on above: Patient is requestin g that the MRI be done at [facility] and her appointment with the [facility] be in person Start: 02-06-2024 End: 02-06-2024 Patient encounter procedure 02/06/2024 10:40 AM EDT Appointment Radiology [address] [place] [address] Hemangioma of bone [D18.09] Radiology Comment on above: Hemangioma of bone [ D18.09] Start: 11-11-2023 End: 11-11-2023 Patient encounter procedure 11/11/2023 1:00 PM EDT Office Visit Neurology [address] [place] [address] Stalin Reyes MD [address] [place] [address] 6 month follow up Neurology Comment on above: 6 month follow up Start: 03-08-2023 Covid-19 Vaccine ( season) Covid-19 Vaccine () [facility] Start: 03-08-2023 Influenza vaccination [facility] Start: 2019 Mammography [facility] Start: 2019 Screening for malign ant neoplasm of breast [facility] Start: 2009 HPV TESTING HPV TESTING [facility] Start: 2009 Screening for malign ant neoplasm of cervix [facility] Start: 2000 PAP TESTING PAP TESTING [facility] Start: 2000 Screening for malign ant neoplasm of cervix [facility] Start: 1998 Hepatitis B Vaccine (1 of 3 - 19+ 3-dose series) Hepatitis B Vaccine (1 of 3 - 19+ 3-dose series) [facility] Start: 1998 SHINGRIX VACCINE (1 of 2) SHINGRIX VACCINE (1 of 2) [facility] Start: 1998 Urine microalbumin profile DTAP,TDAP,TD (1 - Tdap) [facility] Start: 1997 HEPATITIS C SCREENING HEPATITIS C [facility] Start: 1997 Hepatitis C screening Hepatitis C [facility] Start: 1997 HIV SCREENING HIV SCREENING [facility] Start: 1997 HIV screening HIV Screening [facility] Start: 1990 Screening for malign ant neoplasm of cervix Cervical Cancer Screening [facility] Start: 1985 PNEUMOCOCCAL (1 - PCV) PNEUMOCOCCAL (1 - PCV) [facility] Start: 1985 Pneumococcal vaccination [facility] Start: 1979 HEPATITIS B (1 of 3 - 3-dose series) HEPATITIS B (1 of 3 - 3-dose series) [facility] Start: 1979 Hepatitis B Vaccine (1 of 3 - 3-dose series) Hepatitis B Vaccine (1 of 3 - 3-dose series) [facility] Start: 1979 Screening for malign ant neoplasm of colon [facility] Patient Education Minor Head Inj ury, Adult ED [facility] Work Phone: Patient referral [facility] Work Phone: [facility] Immunizations Immunization Date Immunization Notes Care Provider Fa cility 09-12-2022 influenza virus vacc ine, unspecified formulation [facility] 09-12-2022 SARS-CoV-2 (COVID-19 ) [id number] [facility] 09-12-2022 tetanus toxoid, redu leticia diphtheria toxoid, and acellular pertussis vaccine, adsorbed [facility] 01-24-2022 SARS-CoV-2 (COVID-19 ) mRNA-1273 vaccine [facility] 11-16-2020 SARS-CoV-2 (COVID-19 ) mRNA-1273 vaccine [facility] 10-19-2020 SARS-CoV-2 (COVID-19 ) mRNA-1273 vaccine [facility] 05-04-2020 influenza virus vacc ine, unspecified formulation [facility] 08-24-2019 influenza virus vacc ine, unspecified formulation [facility] 03-26-2017 influenza virus vacc ine, unspecified formulation [facility] Payers Date Payer Category Payer Private Health Insurance [facility] MEDICAID [id number] 2022 Self-pay 2022 Medicaid [id number] 1979 Unknown [id number] 2.16.840.1.472462.3.579.2. 593 1979 Unknown [id number] 2.16.840.1.242214.3.579.2. 593 1979 Unknown [id number] 2.16.840.1.571637.3.579.2. 593 1979 Unknown [id number] 2.16.840.1.158241.3.579.2. 593 1979 Unknown [id number] 2.16.840.1.345410.3.579.2. 593 1979 Unknown [id number] 2.16.840.1.899725.3.579.2. 593 1979 Unknown [id number] 2.16.840.1.122248.3.579.2. 593 1979 Unknown [id number] 2.16.840.1.660614.3.579.2. 593 1979 Unknown [id number] 2.16.840.1.759015.3.579.2. 593 1979 Unknown [id number] 2.16.840.1.006505.3.579.2. 593 1979 Unknown [id number] 2.16.840.1.654200.3.579.2. 593 1979 Unknown [id number] 2.16.840.1.221697.3.579.2. 593 1979 Unknown [id number] 2.16.840.1.139809.3.579.2. 593 1979 Unknown [id number] 2.16.840.1.764077.3.579.2. 593 1979 Unknown [id number] 2.16.840.1.232305.3.579.2. 593 1979 Unknown [id number] 2.16.840.1.590716.3.579.2. 593 1979 Unknown [id number] 2.16.840.1.539629.3.579.2. 59 1979 Unknown [id number] 2.16.840.1.433087.3.579.2. 593 1979 Unknown [id number] 2.16.840.1.942975.3.579.2. 59 1979 Unknown [id number] 2.16.840.1.291312.3.579.2. 1258 1979 Unknown [id number] 2..840.1.775924.3.579.2. 1258 1979 Unknown [id number] 2..840.1.503751.3.579.2. 1258 1979 Unknown [id number] 2.16.840.1.984420.3.579.2. 1258 1979 Unknown [id number] 2..840.1.398748.3.579.2. 1258 1979 Unknown [id number] 2..840.1.962852.3.579.2. 1258 1979 Unknown [id number] 2.16.840.1.349917.3.579.2. 1258 1979 Unknown [id number] 2.16.840.1.119335.3.579.2. 1258 1979 Unknown [id number] 2.16.840.1.132107.3.579.2. 1258 1979 Unknown [id number] 2.16.840.1.960679.3.579.2. 1258 1979 Unknown [id number] 2.16.840.1.227024.3.579.2. 9 1979 Unknown [id number] 2.16.840.1.123052.3.579.2. 9 1979 Unknown [id number] 2.16.840.1.141300.3.579.2. 1979 Unknown [id number] 2.16.840.1.137056.3.579.2. 1979 Unknown [id number] 2.16.840.1.507032.3.579.2. 1979 Unknown [id number] 2.16.840.1.395049.3.579.2 1979 Unknown [id number] 2.16.840.1.715804.3.579.2 1979 Unknown [id number] 2.16.840.1.407143.3.579.2 1979 Unknown [id number] 2.16.840.1.135867.3.579.2 1979 Unknown [id number] 2.16.840.1.095165.3.579.2 1979 Unknown [id number] 2.16.840.1.810277.3.579.2 1979 Unknown [id number] 2.16.840.1.426106.3.579.2 1979 Unknown [id number] 2.16.840.1.428148.3.579.2 1979 Unknown [id number] 2.16.840.1.081357.3.579.2 1979 Unknown [id number] 2.16.840.1.208641.3.579.2 1979 Unknown [id number] 2.16.840.1.402528.3.579.2 1979 Unknown [id number] 2.16.840.1.263300.3.579.2. 727 1979 Unknown [id number] 2.16.840.1.726509.3.579.2. 727 1959 Medicaid [id number] 1959 Unknown [id number] 1959 Unknown [id number] 1959 Unknown [id number] Unknown [place] BC/BS [id number] Unknown [id number] 2.16.840.1.460290.3.579.2. 531 Unknown [id number] 2.16.840.1.516521.3.579.2. 531 Social History Date Type Detail Facility Start: 07-04-2020 End: 06-05-2024 Tobacco smoking status Never smoked tobacco (finding) [facility] Comment on above: Deniessd Start: 12-17-2022 End: 02-05-2023 Sex Assigned At Female [facility] Start: 05-12-2015 Tobacco use and exposure Smokeless tobacco non-user [facility] Work Phone: Start: 12-17-2022 End: 02-07-2024 Alcohol intake Current drinker of alcohol (finding) [facility] Start: 05-12-2015 Alcohol Comment occassional [facility] Start: 1980 Sex Assigned At Not on file [facility] Start: 12-17-2022 End: 02-05-2023 History of Social function [facility] Adult Depression Screening Assessment 5 [facility] Tobacco smoking stat [facility] Tobacco smoking consumption unknown [facility] Start: 09-26-2018 End: 08-20-2024 Sex Female (finding) [facility] Start: 1980 Sex Assigned At Female F [facility] Sexual Orientation [facility] Functional Status Date Assessment Result Facility 09-01-2024 Functional Status N/A [facility] 08-04-2024 Functional Status N/A [facility] 06-12-2024 Functional Status N/A [facility] 06-05-2024 Functional Status N/A [facility] 04-06-2024 Functional Status N/A [facility] 10-28-2023 Functional Status N/A [facility] 09-28-2023 Functional Status N/A [facility] 09-17-2023 Functional Status N/A [facility] 06-10-2023 Functional Status N/A [facility] 05-07-2023 Functional Status N/A [facility] 04-19-2023 Functional Status N/A [facility] 03-14-2023 Functional Status N/A [facility] 10-01-2022 Functional Status N/A [facility] 08-14-2022 Functional Status N/A [facility] 05-18-2022 Functional Status N/A [facility] 04-11-2022 Functional Status N/A [facility] 04-09-2022 Functional Status N/A [facility] 02-09-2022 Functional Status N/A [facility] 01-16-2022 Functional Status N/A [facility] Clinical Notes 11-17-2021 to 02-01-2025 Note Date & Type Note Facility 02-01-2025 Note Operative Report Diagnosis: M54.16, lumbar radiculopathy Procedure: L5/S1 lumbar interlaminar epidural steroid injection under fluoroscopic guidance Anesthesia: Local Complications: none After informed consent was obtained, the patient was brought to the procedure suite and placed in the prone position. Pulse oximetry and blood pressure were monitored throughout. Low back areas prepped and draped in the usual sterile fashion. Using fluoroscopic guidance, the skin and subcutaneous tissue overlying the needle trajectory were anesthetized with 2% lidocaine. A 17-gauge Touhy needle was inserted and directed by fluoroscopy. Entry into the epidural space was confirmed using the guav-vb-dftitrngci technique and 2 cc of air. After negative aspiration, injection of contrast revealed appropriate spread without vascular uptake, with confirmation of placement in at least 2 fluoroscopic views. After negative aspiration again, 4 mL of normal saline plus 40 mg of methylprednisolone was then injected. The needle was removed and the patient was then transferred to the recovery room in stable condition. The patient tolerated the procedure well. There were no apparent complications. Follow-up: The patient will update us on the response to this procedure, and agrees to continue currently prescribed/recommended therapies. [facility] Comment on above: Result Comment: Elec tronically Signed By: Joaquin Matos DO\Date and Time Signed: 02/01/25 08:53 EDT 01-04-2025 Note Consultation Note Patient: MITESH BURGESS Age: 44 years Sex: Female : 1980 Associated Diagnoses: None Author: Ade Talamantes PA-C Subjective Chief complaint 01/04/2025 15:33 EDT low back pain . Patient is a 44-year-old female presenting today after a 4-month hiatus. We had previously discussed thoracic medial branch block but at that time, she declined. She then called in with some complaints of radicular symptoms. At this time, she has upper back pain but then she has lower back pain with left greater than right radiating leg pain, numbness, tingling and weakness. She states that the lower back and leg pain is more bothersome than the other symptoms she is having. She rates her discomfort a 5???8/10. It is worse the more she is up and active. This affects her ambulatory status. Affects her ability to do things once a day. Affects her quality of life. She is using the Lyrica 225 mg twice a day with some improvement not enough. She is also using ibuprofen and Mobic. This also again gives her some relief not enough. She has done therapy in the past. This did not help. She is here today to discuss other options to try to get some of her back and leg pain better under control. Health Status Allergies: Allergic Reactions (Selected) Severity Not Documented Adhesive Bandage- Rash. Clindamycin- Itching. Codeine- Nausea. Latex- Rash., Allergies (4) Active Severity Reaction codeine Nausea clindamycin Itching Adhesive Bandage rash Latex rash Current medications: (Selected) Prescriptions Prescribed Lyrica 150 mg Cap: 150 mg = 1 cap(s), Oral, BID, # 60 cap(s), Refills(s) 1, [id number] 161, cm, 06/10/23 15:18:00 EST, Height/Length Dosing, 95.2, kg, 04/19/23 8:29:00 EDT, Weight Dosing pregabalin 300 mg Cap: 300 mg = 1 cap(s), Oral, BID, # 60 cap(s), Refills(s) 2, [id number], 160, cm, 01/04/25 15:47:00 EDT, Height/Length Dosing, 94.3, kg, 01/04/25 15:47:00 EDT, Weight Dosing traMADOL 50 mg Tab: 50 mg = 1 tab(s), Oral, q12hr, PRN pain, # 14 tab(s), Refills(s) 0, [id number], 160, cm, 09/01/24 15:31:00 EST, Height/Length Dosing, 97.5, kg, 09/01/24 15:31:00 EST, Weight Dosing Documented Medications Documented [facility] VITAMIN D3 125 MCG SOFTGEL: [facility] VITAMIN D3 125 MCG SOFTGEL, TAKE 1 CAPSULE BY MOUTH EVERY DAY Ingrezza 80 mg oral capsule: 80 mg = 1 cap(s), Oral, Daily, Refills(s) 0 Lamictal 150 mg Tab: 150 mg = 1 tab(s), Oral, Bedtime, Refills(s) 0 Multi Vitamins oral tablet: 1 tab(s), Oral, Daily, Refill(s) 0, Prophylaxis Pristiq 100 mg Tab-ER: 200 mg = 2 tab(s), Oral, Daily, # 30 tab(s), Refills(s) 0, Depression Trokendi XR 100 mg oral capsule, extended release: TAKE 1 CAPSULE BY MOUTH EVERY DAY Vitamin B2 100 mg oral tablet: Refills(s) 0 Vitamin C 500 mg Tab: 500 mg = 1 tab(s), Oral, Daily, Refills(s) 0, Prophylaxis Vitamin D3 2000 intl units: See Instructions, daily, Refills(s) 0 Zyrtec: 10 mg, Oral, Daily, PRN Allergy symptoms, Refills(s) 0 busPIRone 15 mg Tab: 30 mg = 2 tab(s), Oral, BID, Refills(s) 0, Anxiety dicyclomine 20 mg Tab: TAKE 1 TABLET BY MOUTH FOUR TIMES A DAY FOR 30 DAYS hydrOXYzine pamoate 25 mg Cap: 25 mg = 1 cap(s), Oral, QID, PRN for anxiety, # 40 cap(s), Refills(s) 0 levothyroxine 100 mcg (0.1 mg) Tab: TAKE 1 TABLET BY MOUTH EVERY DAY FOR 90 DAYS liothyronine 25 mcg Tab: TAKE 1 TABLET ORALLY ON ODD DAYS AND 1/2 TABLET ON EVEN DAYS 90 DAYS meloxicam 15 mg Tab: 15 mg = 1 tab(s), Oral, Daily, # 30 tab(s), Refills(s) 0 methocarbamol 500 mg Tab: Refills(s) 0 traZODONE 50 mg Tab: 100 mg = 2 tab(s), Oral, Once a day (at bedtime), Refills(s) 0 Problem list: All Problems Synovial cyst of lumbar spine / SNOMED CT 2168975568 / Confirmed Neuropathy / SNOMED CT 8839373958 / Confirmed Ascending aorta dilation / SNOMED CT 367590168 / Confirmed Anxiety / SNOMED CT 49207409 / Confirmed Bipolar disorder / SNOMED CT 13655013 / Confirmed Labral tear of shoulder / SNOMED CT 230276376 / Confirmed Resolved: At risk for falls / SNOMED CT 078127556 Problem added when Risk for Falls Careplan was initiated. Resolved due to patient discharge. Resolved: Migraine / SNOMED CT 68054895 Resolved: Seasonal allergies / SNOMED CT [id number] Resolved: Tardive dyskinesia / SNOMED CT 732293805 Objective Vital Signs 01/04/2025 15:33 EDT Peripheral Pulse Rate 58 bpm LOW Respiratory Rate 14 br/min Systolic Blood Pressure 76 mmHg LOW Diastolic Blood Pressure 44 mmHg LOW Mean Arterial Pressure, Cuff 55 mmHg General: Alert and oriented, No acute distress. Eye: Normal conjunctiva. HENT: Normocephalic, Normal hearing. Cardiovascular: No edema. Musculoskeletal Normal range of motion. Normal strength. 5/5 strength other than left ADF and EHL 4+5 -/5 with positive left straight leg raise Integumentary: Warm, Dry, Loda. Neurologic: Alert, Oriented. Psychiatric: Cooperativ (more content not included)... [facility] Comment on above: Result Comment: Elec tronically Signed By: Ade Talamantes PA-C\.br\Date and Time Signed: 01/04/25 16:00 EDT 01-04-2025 Evaluation + Plan note Extrac brandon from: Title:Pain Managment Follow up Author:Ade Puente Date:01/04/25 Impression and Plan Patient is a 44-year-old female with a past medical history signet for thoracic compression fracture, lumbar neuritis, lumbar degenerative disc disease and lumbar discrimination. At this time, patient still has the upper back pain but she is having more lower back pain with left greater than right radiating leg pain, numbness, tingling and weakness. She has done therapy in the past that has not helped. She has taken a multitude of anti-inflammatory medication that have not helped. At this time, based on her imaging plans, her failure to improve with conservative treatments and the significant radicular symptoms she is experiencing I recommended to patient an L5-S1 epidural steroid injection to once again be done under fluoroscopy for both diagnostic and therapeutic purposes. Procedure was discussed. Risks and benefits were discussed. Patient is agreeable. We are also going to have her increase her Lyrica to 300 mg twice a day. OARRS was reviewed. How to increase the medication was discussed. Potential side effects of the medication were discussed and she will follow-up 2 weeks after the injection for reevaluation PAOLA score: 46%. As part of providing excellent, safe, comprehensive care, the following was completed at our patient's visit: Reviewed patient's medication reconciliation. Reviewed screening for depression, screening for tobacco use, and patient's Oswestry disability index results. For concerning screenings had a discussion with the patient, provided patient education, and recommended follow-up with primary care provider when appropriate. Patient noted with risk of falling received education on strength, gait, and balance training to prevent future risk of falling. [facility] 02-25-2025 NoteConsultation Note Patient: MITESH BURGESS Age: 44 years Sex: Female : 1980 Associated Diagnoses: None Author: Ade Talamantes PA-C Subjective Chief complaint 09/01/2024 15:16 EST back pain . Patient is a 44-year-old female. She presents today for follow-up after undergoing a lumbar MRI scan. At this time, she has some mid back pain and then some lower back and buttock pain. Patient underwent a previous full course of physical therapy. she did 12 visits of therapy from 12/04/2023 until 05/15/2024 and had made no positive improvements. At this time, the upper back pain is more bothersomethan lower back and buttock pain. She rates an 8/10. Affects her ambulatory status. Affects her quality life. Affects her activities and affects her ability to do things she wants to do. Anti-inflammatory medications have not helped. She wonders what the MRI shows and what her options are. Health Status Allergies: Allergic Reactions (Selected) Severity Not Documented Adhesive Bandage- Rash. Clindamycin- Itching. Codeine- Nausea. Latex- Rash., Allergies (4) Active Severity Reaction codeine Nausea clindamycin Itching Adhesive Bandage rash Latex rash Current medications: (Selected) Prescriptions Prescribed Bromfed DM oral syrup: 5 mL, Oral, q6hr for cough and congestion, 120 mL, Refill(s) 0, [facility]/pharmacy#[id number], 160, cm, 06/12/24 21:06:00 EST, Height/Length Dosing, 99.6, kg, 06/12/24 21:06:00 EST, Weight Dosing Lyrica 150 mg Cap: 150 mg = 1 cap(s), Oral, BID, # 60 cap(s), Refills(s) 1, Pharmacy: [facility]/pharmacy #[id number], 161, cm, 06/10/23 15:18:00 EST, Height/Length Dosing, 95.2, kg, 04/19/23 8:29:00 EDT, Weight Dosing Documented Medications Documented Austedo XR 12 mg oral tablet, extended release: 1 tab, Oral, Daily, Refills(s) 0 Austedo XR 24 mg oral tablet, extended release: 1 tab, Oral, Daily, Refills(s) 0 Caplyta 42 mg oral capsule: 42 mg = 1 cap(s), Oral, Daily, Refills(s) 0 Emgality Prefilled Pen 120 mg/mL subcutaneous solution: 120 mg, SubCutaneous, qMonth, Refills(s) 0 Lamictal 150 mg Tab: 150 mg = 1 tab(s), Oral, Bedtime, Refills(s) 0 Multi Vitamins oral tablet: 1 tab(s), Oral, Daily, Refill(s) 0, Prophylaxis Pristiq 100 mg Tab-ER: 200 mg = 2 tab(s), Oral, Daily, # 30 tab(s), Refills(s) 0, Depression VITAMIN B-2 100 MG TABLET: VITAMIN B-2 100 MG TABLET Vitamin C 500 mg Tab: 500 mg = 1 tab(s), Oral, Daily, Refills(s) 0, Prophylaxis Vitamin D3 2000 intl units: See Instructions, daily, Refills(s) 0 Zyrtec: 10 mg, Oral, Daily, PRN Allergy symptoms, Refills(s) 0 busPIRone 15 mg Tab: 15 mg = 1 tab(s), Oral, TID, Refills(s) 0, Anxiety hydrOXYzine pamoate 25 mg Cap: 25 mg = 1 cap(s), Oral, QID, PRN for anxiety, # 40 cap(s), Refills(s) 0 levothyroxine 50 mcg (0.05 mg) Tab: 50 mcg = 1 tab(s), Oral, Daily, TAKE 1 TABLET BY MOUTH EVERY DAY liothyronine 25 mcg Tab: 25 mcg = 1 tab(s), Oral, Daily, Refills(s) 0 traZODONE 50 mg Tab: 50 mg = 1 tab(s), Oral, Once a day (at bedtime), Refills(s) 0 Problem list: All Problems Synovial cyst of lumbar spine / SNOMED CT 9915044448 / Confirmed Neuropathy / SNOMED CT 0261296455 / Confirmed Ascending aorta dilation / SNOMED CT 868739500 / Confirmed Anxiety / SNOMED CT 80716070 / Confirmed Bipolar disorder / SNOMED CT 57935548 / Confirmed Labral tear of shoulder / SNOMED CT 119279188 / Confirmed Resolved: At risk for falls / SNOMED CT 873703443 Problem added when Risk for Falls Careplan was initiated. Resolved due to patient discharge. Resolved: Migraine / SNOMED CT 21604133 Resolved: Seasonal allergies / SNOMED CT [id number] Resolved: Tardive dyskinesia / SNOMED CT 509476401 Objective Vital Signs 09/01/2024 15:16 EST Peripheral Pulse Rate 69 bpm Respiratory Rate 16 br/min Systolic Blood Pressure 112 mmHg Diastolic Blood Pressure 82 mmHg Mean Arterial Pressure, Cuff 92 mmHg General: Alert and oriented, No acute distress. Eye: Normal conjunctiva. HENT: Normocephalic, Normal hearing. Cardiovascular: No edema. Musculoskeletal Normal range of motion. Normal strength. 5/5 lower extremity strength Pain with palpation of the mid to lower back. Integumentary: Warm, Dry, Loda. Neurologic: Alert, Oriented. Psychiatric: Cooperative, Appropriate mood & affect. 14 point review of systems was negative unless otherwise noted. Results Review * Final Report * Reason For Exam M54.16 POWERSCRIBE REPORT IMPRESSION: SUBACUTE APPEARING MILD ANTERIOR WEDGE COMPRESSION DEFORMITY OF T12. DEGENERATIVE CHANGES OF THE LUMBAR SPINE DETAILED. EXAM: MRI of the lumbar spine contrast History: Technique: Multiplanar multisequence MRI of the lumbar spine was obtained intravenous contrast. Comparison: Findings: The conus medullaris ends normally. The alignment of the lumbar spine is anatomic. The vertebral body heights are well maintained. There is no aggressive bone marrow si (more content not included)...[facility] Result Comment: Electronically Signed By: Ade Talamantes PA-C\.br\Date and Time Signed: 09/01/24 15:41 [id number] Evaluation + Plan noteExtracted from: Title:Pain Managment Follow up Author:Ade Puente Date:09/01/24 Impression and Plan Patient is a 44-year-old female with a past medical history seen for thoracic compression fracture, lumbar spondylosis, lumbar disc herniation and chronic lower back pain. At this time, her upper back pain is more bothersome than her lower back pain. She is on therapy in the past that has not helped. She has taken anti-inflammatory medications that have not helped. This pain affects her quality of life. Affects her activities. Affects her ability to do things she wants to do. Based on her MRI findings, her pain pattern, her failure to improve with conservative treatments and the significant pain she is still experiencing I recommended to patient a T12-L1 epidural steroid injection to be done under fluoroscopy for both diagnostic and therapeutic purposes. Procedure was discussed. Risks and benefits were discussed. Patient is agreeable. She will follow-up 2 weeks after the injection for reevaluation. Call clinic sooner if necessary. PAOLA score: 54%. [facility] 02-13-2025 [facility]iology [facility] [address] [place] [address] CT Scan Report Signed Patient: Mitesh Burgess MR#: [id number] : 1980 Acct:[id number] Age/Sex: 44 / F ADM Date: 5 Loc: ER Room: Type: [facility] ER Attending Dr: Copies to: Emily Mcgill APRN~ Ordering Provider: Emily Mcgill APRN Date of Service: 08/20/24 CT/CT head/brain wo con: injury ([id number]) CT/CT lumbar spine wo con: injury Unenhanced head CT TECHNIQUE: Contiguous axial imaging of the head. The CT exam was performed usingone or more the following dose reduction techniques: Automated exposure control,adjustment of the MA and/or Kv according to patient size, or use of the iterative reconstruction technique. COMPARISON: None HISTORY: Fell on ice. Back injury. Head injury. VENTRICLES: Within normal limits ATROPHY: None BRAIN PARENCHYMA: Adequate ye-white matter differentiation identified. HEMORRHAGE: None HERNIATION: No mass effect or herniation INFARCTION: No recent vascular distribution infarction is seen. EXTRA-AXIAL FLUID COLLECTIONS None MIDBRAIN: Unremarkable HEATHER: Unremarkable MEDULLA: Unremarkable SINUSES: Unremarkable ORBITS: Grossly unremarkable MASTOIDS: Unremarkable BONY STRUCTURES Intact ADDITIONAL FINDINGS: CT/CT head/brain wo con IMPRESSION: No acute findings. CT LUMBAR SPINE WITHOUT CONTRAST TECHNIQUE: Axial acquisition of the lumbar spine obtained with the sagittal and coronal reconstructed imaging.The CT exam was performed using one or more the following dose reduction techniques: Automated exposure control, adjustment of the MA and/or Kv according to patient size, or use of the iterative reconstruction technique. COMPARISON: None FINDINGS: The last fully segmented vertebral pair is operationally defined as L5/S1. POST SURGERY CHANGES: None BONY ALIGNMENT: Adequate bony alignment identified. SPINAL CANAL:Patent bony central canal LUMBAR FRACTURE: T12 superior endplate acute compression deformity. No significant retropulsion of fracture fragments into the bony central canal. BONY LESIONS: None KIDNEYS: No hydronephrosis is identified. 4 mm nonobstructing right renal calculus. Incompletely visualized cyst of right kidney. No cysts identified with the CT examination 05/31/2007 AORTA: No aortic aneurysm is seen. Lower thoracic level: Unremarkable L1-2:Unremarkable L2-3: Unremarkable L3-4:Unremarkable L4-5:Unremarkable L5-S1:Unremarkable Assessment of disc herniation limited with CT examination. No obvious disc herniation seen with CT exam. IMPRESSION:Mildly depressed acute T12 superior endplate compression deformity. No bony encroachmentinto the central canal. Incompletely visualized cystic lesion of right kidney. Consider further assessment with CT or MRI of the kidneys with and without contrast. Impression dictated by: Rome Pimentel M.D.08/20/2024 2:09 PM Dictation Location: [place] [address] Transcribed By: [facility] 08/20/24 1409 Dictated By: Rome Pimentel DO 08/20/24 1355 Signed By: 08/20/24 1409 [facility]01-28-2025 NoteConsultation Note Patient: MITESH BURGESS Age: 44 years Sex: Female : 1980 Associated Diagnoses: None Author: Ade Talamantes PA-C Subjective Chief complaint 08/04/2024 15:17 EST f/u back pain . Patient is a 44-year-old female. She presents today for follow-up after undergoing a full course ofphysical therapy. We got a therapy note on 05/15/2024 when patient was discharged from therapy. Theynoted that she had done 12 visits of therapy from 12/04/2023 until 05/15/2024 and had made no positive improvements. They were discharging her at that time. Between now and then she has had to reschedule a few appointments due to other issues but she is here today to discuss this. She has lower back pain with left greater than right radiating leg pain. She rates as an 8/10. It affects her quality of life. Affects her activities affects her ability to do things she wants to do. She cannot stand, walk, bend, twist or be active as she wants to. She is using Lyrica. 225 mg twice daily with some relief but not enough. She has used [id number]-ubl-[id number] anti- inflammatory medications as well as prescription anti-inflammatory medication without any long-term relief. Health Status Allergies: Allergic Reactions (Selected) Severity Not Documented Adhesive Bandage- Rash. Clindamycin- Itching. Codeine- Nausea. Latex- Rash., Allergies (4) Active Severity Reaction codeine Nausea clindamycin Itching Adhesive Bandage rash Latex rash Current medications: (Selected) Prescriptions Prescribed Bromfed DM oral syrup: 5 mL, Oral, q6hr for cough and congestion, 120 mL, Refill(s) 0, [facility]pharmacy#[id number], 160, cm, 06/12/24 21:06:00 EST, Height/Length Dosing, 99.6, kg, 06/12/24 21:06:00 EST, Weight Dosing Lyrica 150 mg Cap: 150 mg = 1 cap(s), Oral, BID, # 60 cap(s), Refills(s) 1, [id number] 161, cm, 06/10/23 15:18:00 EST, Height/Length Dosing, 95.2, kg, 04/19/23 8:29:00 EDT, Weight Dosing pregabalin 225 mg oral capsule: 225 mg = 1 cap(s), Oral, BID, X 30 day(s), # 60 cap(s), Refills(s) 1, [id number], 160, cm, 06/12/24 21:06:00 EST, Height/Length Dosing, 99.6, kg, 06/12/24 21:06:00 EST, Weight Dosing Documented Medications Documented Austedo XR 12 mg oral tablet, extended release: 1 tab, Oral, Daily, Refills(s) 0 Austedo XR 24 mg oral tablet, extended release: 1 tab, Oral, Daily, Refills(s) 0 Caplyta 42 mg oral capsule: 42 mg = 1 cap(s), Oral, Daily, Refills(s) 0 Emgality Prefilled Pen 120 mg/mL subcutaneous solution: 120 mg, SubCutaneous, qMonth, Refills(s) 0 Lamictal 150 mg Tab: 150 mg = 1 tab(s), Oral, Bedtime, Refills(s) 0 Multi Vitamins oral tablet: 1 tab(s), Oral, Daily, Refill(s) 0, Prophylaxis Pristiq 100 mg Tab-ER: 200 mg = 2 tab(s), Oral, Daily, # 30 tab(s), Refills(s) 0, Depression VITAMIN B-2 100 MG TABLET: VITAMIN B-2 100 MG TABLET Vitamin C 500 mg Tab: 500 mg = 1 tab(s), Oral, Daily, Refills(s) 0, Prophylaxis Vitamin D3 2000 intl units: See Instructions, daily, Refills(s) 0 Zyrtec: 10 mg, Oral, Daily, PRN Allergy symptoms, Refills(s) 0 busPIRone 15 mg Tab: 15 mg = 1 tab(s), Oral, TID, Refills(s) 0, Anxiety hydrOXYzine pamoate 25 mg Cap: 25 mg = 1 cap(s), Oral, QID, PRN for anxiety, # 40 cap(s), Refills(s) 0 levothyroxine 50 mcg (0.05 mg) Tab: 50 mcg = 1 tab(s), Oral, Daily, TAKE 1 TABLET BY MOUTH EVERY DAY liothyronine 25 mcg Tab: 25 mcg = 1 tab(s), Oral, Daily, Refills(s) 0 traZODONE 50 mg Tab: 50 mg = 1 tab(s), Oral, Once a day (at bedtime), Refills(s) 0 Problem list: All Problems Synovial cyst of lumbar spine / SNOMED CT 5434030743 / Confirmed Neuropathy / SNOMED CT 7042168333 / Confirmed Ascending aorta dilation / SNOMED CT 738394264 / Confirmed Anxiety / SNOMED CT 47164517 / Confirmed Bipolar disorder / SNOMED CT 09222853 / Confirmed Labral tear of shoulder / SNOMED CT 770416120 / Confirmed Resolved: At risk for falls / SNOMED CT 833445879 Problem added when Risk for Falls Careplan was initiated. Resolved due to patient discharge. Resolved: Migraine / SNOMED CT 42859464 Resolved: Seasonal allergies / SNOMED CT [id number] Resolved: Tardive dyskinesia / SNOMED CT 629426161 Objective Vital Signs 08/04/2024 15:17 EST Peripheral Pulse Rate 65 bpm Respiratory Rate 14 br/min Systolic Blood Pressure 110 mmHg Diastolic Blood Pressure 41 mmHg LOW Mean Arterial Pressure, Cuff 64 mmHg General: Alert and oriented, No acute distress. Eye: Normal conjunctiva. HENT: Normocephalic, Normal hearing. Cardiovascular: No edema. Musculoskeletal Normal range of motion. Normal strength. 5/5 lower extremity strength other than bilateral hip flexion 4/5 Bilateral ADF and EHL 4+ to 5 -/5 with left greater than right positive straight leg raise Integumentary: Warm, Dry, Loda. Neurologic: Alert, Oriented. Psychiatric: Cooperative, Appropriate mood & affect. 14 point review of systems was negative unless (more content not included)... [facility]:Result Comment: Electronically Signed By: Ade Talamantes PA-C\.br\Date and Time Signed: 08/04/24 15:38 EST 08-04-2024 Evaluation + Plan noteExtracted from: Title:Pain Managment Follow up Author:Ade Puente Date:08/04/24 Impression and Plan Patient is a 44-year-old female with a past medical history significant for fibromyalgia, chronic pain and lumbar neuritis. At this time, patient continues on Lyrica 225 mg twice daily with some relief but not enough. Anti-inflammatory medications have not helped. She has left greater than right radiating leg pain that despite all reasonable conservative treatments she has not been able to get under control. She did a full course of physical therapy and was actually discharged from therapy due to not making any positive progress. At this time, based on her failure to improve with conservative treatments and the significant radicular symptoms she is still experiencing I recommended a lumbar MRI scan for possible injection options versus surgical consultation depend on the results. Patient is agreeable. She will follow-up after the imaging for reevaluation and discussion of options. PAOLA score: 54%. Future Appointments Appointment Date:09/01/2024 03:15:00 PM Scheduled Provider:Ade Talamantes PA-C Location:.[facility] Appointment Type:Pain Management - Follow Up (FT) [facility] 12-07-2024 Hospital Discharge instructions Patient Education 06/12/2024 22:57:00 Community-Acquired Pneumonia, Adult Community-Acquired Pneumonia, Adult Pneumonia is a lung infection that causes inflammation and the buildup of mucus and fluids in the lungs. This may cause coughing and difficulty breathing. Community-acquired pneumonia is pneumonia that develops in people who are not, and have not recently been, in a hospital or other health care facility. Usually, pneumonia develops as a result of an illness that is caused by a virus, such as the commoncold and the flu (influenza). It can also be caused by bacteria or fungi. While the common cold andinfluenza can pass from person to person (are contagious), pneumonia itself is not considered contagious. What are the causes? This condition may be caused by: Viruses. Bacteria. Fungi. What increases the risk? The following factors may make you more likely to develop this condition: Being over age 65 or having certain medical conditions, such as: ?A long-term (chronic) disease, such as: chronic obstructive pulmonary disease (COPD), asthma, heart failure, diabetes, or kidney disease. ?A condition that increases the risk of breathing in (aspirating) mucus and other fluids from your mouth and nose. ?A weakened body defense system (immune system). Having had your spleen removed (splenectomy). The spleen is the organ that helps fight germs and infections. Not cleaning your teeth and gums well (poor dental hygiene). Using tobacco products. Traveling to places where germs that cause pneumonia are present or being near certain animals or animal habitats that could have germs that cause pneumonia. What are the signs or symptoms? Symptoms of this condition include: A dry cough or a wet (productive) cough. A fever, sweating, or chills. Chest pain, especially when breathing deeply or coughing. Fast breathing, difficulty breathing, or shortness of breath. Tiredness (fatigue) and muscle aches. How is this diagnosed? This condition may be diagnosed based on your medical history or a physical exam. You may also havetests, including: Imaging, such as a chest X-ray or lung ultrasound. Tests of: ?The level of oxygen and other gases in your blood. ?Mucus from your lungs (sputum). ?Fluid around your lungs (pleural fluid). ?Your urine. How is this treated? Treatment for this condition depends on many factors, such as the cause of your pneumonia, your medicines, and other medical conditions that you have. For most adults, pneumonia may be treated at home. In some cases, treatment must happen in a hospital and may include: Medicines that are given by mouth (orally) or through an IV, including: ?Antibiotic medicines, if bacteria caused the pneumonia. ?Medicines that kill viruses (antiviral medicines), if a virus caused the pneumonia. Oxygen therapy. Severe pneumonia, although rare, may require the following treatments: Mechanical ventilation.This procedure uses a machine to help you breathe if you cannot breathe wellon your own or maintain a safe level of blood oxygen. Thoracentesis. This procedure removes any buildup of pleural fluid to help with breathing. Follow these instructions at home: Medicines Take sxvt-mly-imxaevs and prescription medicines only as told by your health care provider. Take cough medicine only if you have trouble sleeping. Cough medicine can prevent your body from removing mucus from your lungs. If you were prescribed antibiotics, take them as told by your health care provider. Do not stop taking the antibiotic even if you start to feel better. Lifestyle Do not drink alcohol. Do not use any products that contain nicotine or tobacco. These products include cigarettes, chewing tobacco, and vaping devices, such as e-cigarettes. If you need help quitting, ask your health careprovider. Eat a healthy diet. This includes plenty of vegetables, fruits, whole grains, low-fat dairy products, and lean protein. General instructions Rest a lot and get at least 8 hours of sleep each night. Sleep in a partly upright position at night. Place a few pillows under your head or sleep in a reclining chair. Return to your normal activities as told by your health care provider. Ask your health care provider what activities are safe for you. Drink enough fluid to keep your urine pale yellow. This helps to thin the mucus in your lungs. If your throat is sore, gargle with a mixture of salt and water 3 4 times a day or as needed. To make salt water, completely dissolve 1 tsp (3 6 g) of salt in 1 cup (237 mL) of warm water. Keep all follow-up visits. How is this prevented? You can lower your risk of developing community-acquired pneumonia by: Getting the pneumonia vaccine. There are different types and schedules of pneumonia vaccines. Ask your health care provider which option is best for you. Consider getting the pneumonia vaccine if: ?You are older than 65 years of age. ?You are 19 65 years of age and are receiving cancer treatment, have chronic lung disease, or have other medical conditions that affect your immune system. Ask your health care provider if this applies to you. Getting your influenza vaccine every year. Ask your health care provider which type of vaccine is best for you. Getting regular dental checkups. Washing your hands often with soap and water for at least 20 seconds. If soap and water are not available, use hand electrical instrument maker. Contact a health care provider if: You have a fever. You have trouble sleeping because you cannot control your cough with cough medicine. Get help right away if: Your shortness of breath becomes worse. Your chest pain increases. Your sickness becomes worse, especially if you are an older adult or have a weak immune system. You cough up blood. These symptoms may be an emergency. Get help right away. Call 911. Do not wait to see if the symptoms will go away. Do not drive yourself to the hospital. Summary Pneumonia is an infection of the lungs. Community-acquired pneumonia develops in people who have not been in the hospital. It can be causedby bacteria, viruses, or fungi. This condition may be treated with antibiotics or antiviral medicines. Severe pneumonia may require a hospital stay and treatment to help with breathing. This information is not intended to replace advice given to you by your health care provider. Make sure you discuss any questions you have with your health care provider. Document Revised: 08/22/2022 Document Reviewed: 08/22/2022 [employer] Patient Education 2023 CM [employer]. Follow Up Care 06/12/2024 20:57:37 With:Pepe Alcazar Address: [address] [place] [address] Business (1) When:Within 3 Day(s) [facility] 12-06-2024 NoteED Patient Education Note Infectious Disease Community-Acquired Pneumonia, Adult Pneumonia is a lung infection that causes inflammation and the buildup of mucus and fluids in the lungs. This may cause coughing and difficulty breathing. Community-acquired pneumonia is pneumonia that develops in people who are not, and have not recently been, in a hospital or other health care facility. Usually, pneumonia develops as a result of an illness that is caused by a virus, such as the commoncold and the flu (influenza). It can also be caused by bacteria or fungi. While the common cold andinfluenza can pass from person to person (are contagious), pneumonia itself is not considered contagious. What are the causes? This condition may be caused by: ??? Viruses. ??? Bacteria. ??? Fungi. What increases the risk? The following factors may make you more likely to develop this condition: ??? Being over age 65 or having certain medical conditions, such as: ? A long-term (chronic) disease, such as: chronic obstructive pulmonary disease (COPD), asthma, heart failure, diabetes, or kidney disease. ? A condition that increases the risk of breathing in (aspirating) mucus and other fluids from yourmouth and nose. ? A weakened body defense system (immune system). ??? Having had your spleen removed (splenectomy). The spleen is the organ that helps fight germs and infections. ??? Not cleaning your teeth and gums well (poor dental hygiene). ??? Using tobacco products. ??? Traveling to places where germs that cause pneumonia are present or being near certain animals or animal habitats that could have germs that cause pneumonia. What are the signs or symptoms? Symptoms of this condition include: ??? A dry cough or a wet (productive) cough. ??? A fever, sweating, or chills. ??? Chest pain, especially when breathing deeply or coughing. ??? Fast breathing, difficulty breathing, or shortness of breath. ??? Tiredness (fatigue) and muscle aches. How is this diagnosed? This condition may be diagnosed based on your medical history or a physical exam. You may also havetests, including: ??? Imaging, such as a chest X-ray or lung ultrasound. ??? Tests of: ? The level of oxygen and other gases in your blood. ? Mucus from your lungs (sputum). ? Fluid around your lungs (pleural fluid). ? Your urine. How is this treated? Treatment for this condition depends on many factors, such as the cause of your pneumonia, your medicines, and other medical conditions that you have. For most adults, pneumonia may be treated at home. In some cases, treatment must happen in a hospital and may include: ??? Medicines that are given by mouth (orally) or through an IV, including: ? Antibiotic medicines, if bacteria caused the pneumonia. ? Medicines that kill viruses (antiviral medicines), if a virus caused the pneumonia. ??? Oxygen therapy. Severe pneumonia, although rare, may require the following treatments: ??? Mechanical ventilation.This procedure uses a machine to help you breathe if you cannot breathe well on your own or maintain a safe level of blood oxygen. ??? Thoracentesis. This procedure removes any buildup of pleural fluid to help with breathing. Follow these instructions at home: Medicines ??? Take qimd-svq-lfttfjp and prescription medicines only as told by your health care provider. ??? Take cough medicine only if you have trouble sleeping. Cough medicine can prevent your body from removing mucus from your lungs. ??? If you were prescribed antibiotics, take them as told by your health care provider. Do not stoptaking the antibiotic even if you start to feel better. Lifestyle ??? Do not drink alcohol. ??? Do not use any products that contain nicotine or tobacco. These products include cigarettes, chewing tobacco, and vaping devices, such as e-cigarettes. If you need help quitting, ask your health care provider. ??? Eat a healthy diet. This includes plenty of vegetables, fruits, whole grains, low-fat dairy products, and lean protein. General instructions ??? Rest a lot and get at least 8 hours of sleep each night. ??? Sleep in a partly upright position at night. Place a few pillows under your head or sleep in a reclining chair. ??? Return to your normal activities as told by your health care provider. Ask your health care provider what activities are safe for you. ??? Drink enough fluid to keep your urine pale yellow. This helps to thin the mucus in your lungs. ??? If your throat is sore, gargle with a mixture of salt and water 3?4 times a day or as needed. To make salt water, completely dissolve ??1 tsp (3?6 g) of salt in 1 cup (237 mL) of warm water. ??? Keep all follow-up visits. How is this prevented? You can lower your risk of developing commu (more content not included)...[facility]12-[facility] Evaluation + Plan noteExtracted from: Title:ED Note Author:Dandy Ashton DOKetan Date :06/12/24 Pneumonia (J18.9: Pneumonia, unspecified organism) Orders: albuterol, 2.5 mg, 3 mL, Soln-Inh, NEB, Once, Stop date 06/12/24 21:22:00 EST, STAT, Start date 06/12/24 21:22:00 EST brompheniramine/dextromethorphan/PSE, 5 mL, Oral, q6hr for cough and congestion, 120 mL, Refill(s) 0, [id number], 160, cm, 06/12/24 21:06:00 EST, Height/Length Dosing, 99.6, kg, 06/12/24 21:06:00 EST, Weight Dosing brompheniramine/dextromethorphan/PSE, 5 mL, Syrup, Oral, Once, Stop date 06/12/24 22:27:00 EST, STAT, Start date 06/12/24 22:27:00 EST Basic Metabolic Panel CBC w/ Auto Diff ED Cardiac Monitoring eGFR Extra SST Tube Oxygen Saturation PT & PTT Troponin 0 Hr. XR Chest Single View Future Appointments Appointment Date:06/17/2024 03:15:00 PM Scheduled Provider:Ade Talamantes PA-C Location:[facility] Appointment Type:Pain Management - Follow Up (FT) [facility] 11-29-2024 Hospital Discharge instructions Patient Education 06/05/2024 13:37:16 Community-Acquired Pneumonia, Adult Community-Acquired Pneumonia, Adult Pneumonia is a lung infection that causes inflammation and the buildup of mucus and fluids in the lungs. This may cause coughing and difficulty breathing. Community-acquired pneumonia is pneumonia that develops in people who are not, and have not recently been, in a hospital or other health care facility. Usually, pneumonia develops as a result of an illness that is caused by a virus, such as the commoncold and the flu (influenza). It can also be caused by bacteria or fungi. While the common cold andinfluenza can pass from person to person (are contagious), pneumonia itself is not considered contagious. What are the causes? This condition may be caused by: Viruses. Bacteria. Fungi. What increases the risk? The following factors may make you more likely to develop this condition: Being over age 65 or having certain medical conditions, such as: ?A long-term (chronic) disease, such as: chronic obstructive pulmonary disease (COPD), asthma, heart failure, diabetes, or kidney disease. ?A condition that increases the risk of breathing in (aspirating) mucus and other fluids from your mouth and nose. ?A weakened body defense system (immune system). Having had your spleen removed (splenectomy). The spleen is the organ that helps fight germs and infections. Not cleaning your teeth and gums well (poor dental hygiene). Using tobacco products. Traveling to places where germs that cause pneumonia are present or being near certain animals or animal habitats that could have germs that cause pneumonia. What are the signs or symptoms? Symptoms of this condition include: A dry cough or a wet (productive) cough. A fever, sweating, or chills. Chest pain, especially when breathing deeply or coughing. Fast breathing, difficulty breathing, or shortness of breath. Tiredness (fatigue) and muscle aches. How is this diagnosed? This condition may be diagnosed based on your medical history or a physical exam. You may also havetests, including: Imaging, such as a chest X-ray or lung ultrasound. Tests of: ?The level of oxygen and other gases in your blood. ?Mucus from your lungs (sputum). ?Fluid around your lungs (pleural fluid). ?Your urine. How is this treated? Treatment for this condition depends on many factors, such as the cause of your pneumonia, your medicines, and other medical conditions that you have. For most adults, pneumonia may be treated at home. In some cases, treatment must happen in a hospital and may include: Medicines that are given by mouth (orally) or through an IV, including: ?Antibiotic medicines, if bacteria caused the pneumonia. ?Medicines that kill viruses (antiviral medicines), if a virus caused the pneumonia. Oxygen therapy. Severe pneumonia, although rare, may require the following treatments: Mechanical ventilation.This procedure uses a machine to help you breathe if you cannot breathe wellon your own or maintain a safe level of blood oxygen. Thoracentesis. This procedure removes any buildup of pleural fluid to help with breathing. Follow these instructions at home: Medicines Take edxb-rba-nwtfmaq and prescription medicines only as told by your health care provider. Take cough medicine only if you have trouble sleeping. Cough medicine can prevent your body from removing mucus from your lungs. If you were prescribed antibiotics, take them as told by your health care provider. Do not stop taking the antibiotic even if you start to feel better. Lifestyle Do not drink alcohol. Do not use any products that contain nicotine or tobacco. These products include cigarettes, chewing tobacco, and vaping devices, such as e-cigarettes. If you need help quitting, ask your health careprovider. Eat a healthy diet. This includes plenty of vegetables, fruits, whole grains, low-fat dairy products, and lean protein. General instructions Rest a lot and get at least 8 hours of sleep each night. Sleep in a partly upright position at night. Place a few pillows under your head or sleep in a reclining chair. Return to your normal activities as told by your health care provider. Ask your health care provider what activities are safe for you. Drink enough fluid to keep your urine pale yellow. This helps to thin the mucus in your lungs. If your throat is sore, gargle with a mixture of salt and water 3 4 times a day or as needed. To make salt water, completely dissolve 1 tsp (3 6 g) of salt in 1 cup (237 mL) of warm water. Keep all follow-up visits. How is this prevented? You can lower your risk of developing community-acquired pneumonia by: Getting the pneumonia vaccine. There are different types and schedules of pneumonia vaccines. Ask your health care provider which option is best for you. Consider getting the pneumonia vaccine if: ?You are older than 65 years of age. ?You are 19 65 years of age and are receiving cancer treatment, have chronic lung disease, or have other medical conditions that affect your immune system. Ask your health care provider if this applies to you. Getting your influenza vaccine every year. Ask your health care provider which type of vaccine is best for you. Getting regular dental checkups. Washing your hands often with soap and water for at least 20 seconds. If soap and water are not available, use hand electrical instrument maker. Contact a health care provider if: You have a fever. You have trouble sleeping because you cannot control your cough with cough medicine. Get help right away if: Your shortness of breath becomes worse. Your chest pain increases. Your sickness becomes worse, especially if you are an older adult or have a weak immune system. You cough up blood. These symptoms may be an emergency. Get help right away. Call 911. Do not wait to see if the symptoms will go away. Do not drive yourself to the hospital. Summary Pneumonia is an infection of the lungs. Community-acquired pneumonia develops in people who have not been in the hospital. It can be causedby bacteria, viruses, or fungi. This condition may be treated with antibiotics or antiviral medicines. Severe pneumonia may require a hospital stay and treatment to help with breathing. This information is not intended to replace advice given to you by your health care provider. Make sure you discuss any questions you have with your health care provider. Document Revised: 08/22/2022 Document Reviewed: 08/22/2022 [employer] Patient Education 2023 CM [employer]. Follow Up Care 06/05/2024 11:21:44 With:Pepe Alcazar MD Address: [address] [place] [address]- When: Unknown [facility] 11-29-2024 NotePatient Education Infectious Disease Community-Acquired Pneumonia, Adult Pneumonia is a lung infection that causes inflammation and the buildup of mucus and fluids in the lungs. This may cause coughing and difficulty breathing. Community-acquired pneumonia is pneumonia that develops in people who are not, and have not recently been, in a hospital or other health care facility. Usually, pneumonia develops as a result of an illness that is caused by a virus, such as the commoncold and the flu (influenza). It can also be caused by bacteria or fungi. While the common cold andinfluenza can pass from person to person (are contagious), pneumonia itself is not considered contagious. What are the causes? This condition may be caused by: ??? Viruses. ??? Bacteria. ??? Fungi. What increases the risk? The following factors may make you more likely to develop this condition: ??? Being over age 65 or having certain medical conditions, such as: ? A long-term (chronic) disease, such as: chronic obstructive pulmonary disease (COPD), asthma, heart failure, diabetes, or kidney disease. ? A condition that increases the risk of breathing in (aspirating) mucus and other fluids from yourmouth and nose. ? A weakened body defense system (immune system). ??? Having had your spleen removed (splenectomy). The spleen is the organ that helps fight germs and infections. ??? Not cleaning your teeth and gums well (poor dental hygiene). ??? Using tobacco products. ??? Traveling to places where germs that cause pneumonia are present or being near certain animals or animal habitats that could have germs that cause pneumonia. What are the signs or symptoms? Symptoms of this condition include: ??? A dry cough or a wet (productive) cough. ??? A fever, sweating, or chills. ??? Chest pain, especially when breathing deeply or coughing. ??? Fast breathing, difficulty breathing, or shortness of breath. ??? Tiredness (fatigue) and muscle aches. How is this diagnosed? This condition may be diagnosed based on your medical history or a physical exam. You may also havetests, including: ??? Imaging, such as a chest X-ray or lung ultrasound. ??? Tests of: ? The level of oxygen and other gases in your blood. ? Mucus from your lungs (sputum). ? Fluid around your lungs (pleural fluid). ? Your urine. How is this treated? Treatment for this condition depends on many factors, such as the cause of your pneumonia, your medicines, and other medical conditions that you have. For most adults, pneumonia may be treated at home. In some cases, treatment must happen in a hospital and may include: ??? Medicines that are given by mouth (orally) or through an IV, including: ? Antibiotic medicines, if bacteria caused the pneumonia. ? Medicines that kill viruses (antiviral medicines), if a virus caused the pneumonia. ??? Oxygen therapy. Severe pneumonia, although rare, may require the following treatments: ??? Mechanical ventilation.This procedure uses a machine to help you breathe if you cannot breathe well on your own or maintain a safe level of blood oxygen. ??? Thoracentesis. This procedure removes any buildup of pleural fluid to help with breathing. Follow these instructions at home: Medicines ??? Take iywz-evd-sfrmjoe and prescription medicines only as told by your health care provider. ??? Take cough medicine only if you have trouble sleeping. Cough medicine can prevent your body from removing mucus from your lungs. ??? If you were prescribed antibiotics, take them as told by your health care provider. Do not stoptaking the antibiotic even if you start to feel better. Lifestyle ??? Do not drink alcohol. ??? Do not use any products that contain nicotine or tobacco. These products include cigarettes, chewing tobacco, and vaping devices, such as e-cigarettes. If you need help quitting, ask your health care provider. ??? Eat a healthy diet. This includes plenty of vegetables, fruits, whole grains, low-fat dairy products, and lean protein. General instructions ??? Rest a lot and get at least 8 hours of sleep each night. ??? Sleep in a partly upright position at night. Place a few pillows under your head or sleep in a reclining chair. ??? Return to your normal activities as told by your health care provider. Ask your health care provider what activities are safe for you. ??? Drink enough fluid to keep your urine pale yellow. This helps to thin the mucus in your lungs. ??? If your throat is sore, gargle with a mixture of salt and water 3?4 times a day or as needed. To make salt water, completely dissolve ??1 tsp (3?6 g) of salt in 1 cup (237 mL) of warm water. ??? Keep all follow-up visits. How is this prevented? You can lower your risk of developing community-acq (more content not included)...[facility]11-08-2024 History of Present illness Narrative* Tran Gu, PT - 05/15/2024 3:30 PM EST Time In: 3:35 pm Time Out: 4:30 pm Supervised Time: 45 Total Time: 55 Visit Number: 11/16 through 05/25/24 Chief Complaint: M54.16 (ICD-10-CM) - Radiculopathy, lumbar region L posterior buttock, groin, lateral thigh, anteriorly. Now feeling it in her R side posterior lateral buttock. Started on R side 2 days ago. Intensity now 01/14 R, 8 riding in car all day. Precautions: none Imaging: MRI 03/03/20: synovial cyst effacing L4-5 nerves, L4 facet arthropathy Objective: I HEP Pain levels 7-8/10 LB and to L lateral hip to foot, R posterior buttock AROM limited all planes with pain Unable to stabilize spine with hip movements Hypomobility low thoracic and lumbar spines throughout [facility] Goals: Centralize symptoms to low back only. (NOT MET) Core strength: pt is able to stabilize spine with hip flexion, rotation, and extension. (NOT MET) Full AROM lumbar spine without pain all planes (NOT MET) 0-3/10 pain with pt able to manage indep. (NOT MET) Intersegmental mobility WFLs lumbar and thoracic spines (NOT MET) Intervention: X30 minutes of manual therapy of bilateral HS/IT band passive stretching, gapping strategies, distraction, STM L glut X15 minutes of supervised therex per flowsheet X10 minutes of unsupervised heat to lumbar spine post session PT Assessment:. Pt is making no progress with PT, has now started with R sided LBP and buttock pain which she has not had before. She does not respond favorably to any methods tried at this point. Poor ability to stabilize core with bird dog exercise. Advised to continue to work on this at home. Pt has had 12 visits total of PT for this diagnosis from 12/04/23 to now with no positive change. We are sending her back to pain management at this time for follow up. Thank you. I hereby deem this POC medically necessary. Please sign below and fax back to the number below. Physician Signature: Date: documented in this encounterMetropolitan [facility] Psych[facility] [id number] History of Present illness Narrative* Tran Gu, PT - 05/11/2024 5:45 PM EST Time In: 5:45 pm Time Out: 6:45 pm Supervised Time: 50 Total Time: 60 Visit Number: 11/16 through 05/25/24 Chief Complaint: M54.16 (ICD-10-CM) - Radiculopathy, lumbar region Pain lateral L thigh to foot, 01/14. Hurts to stand, sit. When she leaves PT 4 hours after pain starts again. Precautions: none Subjective Chronic pain, has been receiving injections from Pain Management, now needs MRI. More PT needed to approve MRI. Pt received PT here at [facility] in 2020, 13 treatment for lumbar facet arthropathy with synovial cyst. Sharp stabbing pain L LB across to crest and runs down to toes. On and off all the time.Stop moving worse. Nights bad. Walking also bad. Worsening over time. Imaging: MRI 03/03/20: synovial cyst effacing L4-5 nerves, L4 facet arthropathy Intervention: X35 minutes of manual therapy of bilateral HS/IT band passive stretching, gapping strategies, distraction, STM L glut X15 minutes of supervised therex per flowsheet X10 minutes of unsupervised heat to lumbar spine post session PT Assessment:. L SB worse, flexion worse, extension worse. Lying on L side is best per her report. Flexion or extension all aggravate. Neutral spine manuals, distraction, STM performed with L hip light stretches. DLS with neutral spine also well tolerated. She prefers heat post session. L leg pain continues during and after treatment. She states driving 30 minutes L leg hurts terrible and has to get out of car.She does not tolerate extension strategies however but flexion aggravates. Not having + response toPT thus far. documented in this [facility]10-18-2024 History of Present illness Narrative* Tran Gu, PT - 04/24/2024 4:00 PM EDT Time In: 4:00 pm Time Out: 5:00 pm Supervised Time: 60 Total Time: 60 Evaluation Time: 20 Self retirement management: 10 Therex: 15 Manual therapy: 15 Visit Number: 07/19 through 05/25/24 Chief Complaint: M54.16 (ICD-10-CM) - Radiculopathy, lumbar region Precautions: none Subjective Mechanism of injury: Mechanism of injury: chronic pain, has been receiving injections from Pain Management, now needs MRI. More PT needed to approve MRI. Pt received PT here at [facility] in 2020, 13 treatment for lumbar facet arthropathy with synovial cyst. Symptoms did not resolve with PT at that time.Patient is trying to avoid surgery, hoping for some relief with PT this time. She tried to get Dr to approve an MRI but did not have enough PT (5 visits) to get one per Dr. She has to have 6 weeks total she states. Sharp stabbing pain L LB across to crest and runs down to toes. On and off all the time. Stop moving worse. Nights bad. Walking also bad. Worsening over time. Exercises help some but does not last. Had a spinal surgeon appt who didn't want to do surgery a couple of years ago. Has Tardive Dyskinesia with facial tremors, jaw. She is here today to restart PT. Pain level: 5-10/10 What increases symptoms: Static sitting or standing. Cannot drive 2 hours to her dads What decreases symptoms: Lyrica, Dicofenac PRN Timing of pain: constant Numbness/tingling: L lateral hip, thigh to toes intermittent Imaging: MRI 03/03/20: synovial cyst effacing L4-5 nerves, L4 facet arthropathy Objective Posture / Appearance: unremarkable Lumbar AROM: flexion: NBNW extension: worse L side bend: NBNW R side bend: worse Muscle Strength: Grossly 4-/5 B LEs, core Joint Play: hypomobile in general lumbar and thoracic spines. Attempts at gapping mobes caused LLE sxs afterward. 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 Therapy Diagnosis: Most recent imaging 4 years ago showed synovial cyst L4-5 on L facet region. No true responder of flexion or extension principles today. Gapping mobes with peripheralization. I suspect extension would be better per her s/s history. Needs core stabes as well. Functional Limitations: Back Index: 29/50 [facility] Goals: Centralize symptoms to low back only. Core strength: pt is able to stabilize spine with hip flexion, rotation, and extension. Full AROM lumbar spine without pain all planes 0-3/10 pain with pt able to manage indep. Intersegmental mobility WFLs lumbar and thoracic spines Rehab Potential: Fair + Plan: 1-2x per week x 6-8 weeks Treatment: Today's session consists of IE, manual therapy to lower lumbar spinal segments, gapping on L first, then PAs in prone position, therex of core stabes in neutral spine position. Education in the dx, px, POC, goals, expected treatment procedures, outcomes, timeframe for completion discussed. Ergonomic and postural correction education given to pt for work, driving positions and home tasks. I hereby deem this POC medically necessary. Please sign below and fax back to the number below. Physician Signature: Date: documented in this encounterMetropolitan [facility] Psych[facility] [id number] NoteConsultation Note Patient: MITESH BURGESS Age: 44 years Sex: Female : 1980 Associated Diagnoses: None Author: Ade Talamantes PA-C Subjective Chief complaint 04/06/2024 14:49 EDT Low back pain, left thigh/hip pain . Patient is a 44-year-old female. She presents today after a 9-month hiatus. She has been doing physical therapy. She noted some relief but unfortunate, nothing long-lasting. She has lower back pain with left radiating leg pain that she rates a 6/10 with sitting but a 10/10 with standing, being upright and being active. Unfortunate, the conservative treatments therapy did not give her any long-term relief. Anti-inflammatory medications have not given any long-term relief. She had previous injections with short-term relief but nothing long- term. She is eager to get updated advanced imaging to discuss other potential options. She states that she is just miserable and at this time she just wants to cut her leg off. Health Status Allergies: Allergic Reactions (Selected) Severity Not Documented Adhesive Bandage- Rash. Clindamycin- Itching. Codeine- Nausea. Latex- Rash., Allergies (4) Active Severity Reaction codeine Nausea clindamycin Itching Adhesive Bandage rash Latex rash Current medications: (Selected) Prescriptions Prescribed Lyrica 150 mg Cap: 150 mg = 1 cap(s), Oral, BID, # 60 cap(s), Refills(s) 1, Pharmacy: [facility]/pharmacy #[id number], 161, cm, 06/10/23 15:18:00 EST, Height/Length Dosing, 95.2, kg, 04/19/23 8:29:00 EDT, Weight Dosing Documented Medications Documented Austedo XR 12 mg oral tablet, extended release: 1 tab, Oral, Daily, Refills(s) 0 Austedo XR 24 mg oral tablet, extended release: 1 tab, Oral, Daily, Refills(s) 0 Caplyta 42 mg oral capsule: 42 mg = 1 cap(s), Oral, Daily, Refills(s) 0 Emgality Prefilled Pen 120 mg/mL subcutaneous solution: 120 mg, SubCutaneous, qMonth, Refills(s) 0 Lamictal 150 mg Tab: 150 mg = 1 tab(s), Oral, Bedtime, Refills(s) 0 Multi Vitamins oral tablet: 1 tab(s), Oral, Daily, Refill(s) 0, Prophylaxis Pristiq 100 mg Tab-ER: 200 mg = 2 tab(s), Oral, Daily, # 30 tab(s), Refills(s) 0, Depression Trokendi XR 100 mg oral capsule, extended release: TAKE 1 CAPSULE BY MOUTH EVERY DAY VITAMIN B-2 100 MG TABLET: VITAMIN B-2 100 MG TABLET Vitamin C 500 mg Tab: 500 mg = 1 tab(s), Oral, Daily, Refills(s) 0, Prophylaxis Vitamin D3 2000 intl units: See Instructions, daily, Refills(s) 0 Zyrtec: 10 mg, Oral, Daily, PRN Allergy symptoms, Refills(s) 0 busPIRone 15 mg Tab: 15 mg = 1 tab(s), Oral, TID, Refills(s) 0, Anxiety diclofenac sodium 75 mg Oral EC Tab: 75 mg = 1 tab(s), Oral, BID, Refills(s) 0 hydrOXYzine pamoate 25 mg Cap: 25 mg = 1 cap(s), Oral, QID, PRN for anxiety, # 40 cap(s), Refills(s) 0 levothyroxine 50 mcg (0.05 mg) Tab: 50 mcg = 1 tab(s), Oral, Daily, TAKE 1 TABLET BY MOUTH EVERY DAY liothyronine 25 mcg Tab: 25 mcg = 1 tab(s), Oral, Daily, Refills(s) 0 traZODONE 50 mg Tab: 50 mg = 1 tab(s), Oral, Once a day (at bedtime), Refills(s) 0 Problem list: All Problems Synovial cyst of lumbar spine / SNOMED CT 3406533224 / Confirmed Neuropathy / SNOMED CT 3453917118 / Confirmed Ascending aorta dilation / SNOMED CT 620761689 / Confirmed Anxiety / SNOMED CT 85876451 / Confirmed Bipolar disorder / SNOMED CT 19084841 / Confirmed Labral tear of shoulder / SNOMED CT 004465307 / Confirmed Resolved: At risk for falls / SNOMED CT 327352872 Problem added when Risk for Falls Careplan was initiated. Resolved due to patient discharge. Resolved: Migraine / SNOMED CT 83602186 Resolved: Seasonal allergies / SNOMED CT [id number] Resolved: Tardive dyskinesia / SNOMED CT 304920196 Objective Vital Signs 04/06/2024 14:49 EDT Peripheral Pulse Rate 83 bpm Systolic Blood Pressure 132 mmHg Diastolic Blood Pressure 88 mmHg Mean Arterial Pressure, Cuff 103 mmHg General: Alert and oriented, No acute distress. Eye: Normal conjunctiva. HENT: Normocephalic, Normal hearing. Cardiovascular: No edema. Musculoskeletal Normal range of motion. Normal strength. 5/5 lower extremity strength of the left hip flexion, ADF and EHL 4/5 with possible left straight leg raise Integumentary: Warm, Dry, Loda. Neurologic: Alert, Oriented. Psychiatric: Cooperative, Appropriate mood & affect. 14 point review of systems was negative unless otherwise noted. Impression and Plan Patient is a 44-year-old female with a past medical history significant for fibromyalgia?she uses methocarbamol that she does not require refill, chronic pain and lumbar neuritis. At this time, her lower back pain with left radiating leg pain is her rate limiting factor. This affects her ambulatorystatus. This affects her quality of life. Affects her activities and affects her ability to do the things she wants to do. At this time, based on her failure to improve with conservative treatments including a recent full course of phy (more content not included)...[facility] HospitalComment on above:Result Comment: Electronically Signed By: Ade Talamantes PA-C\.br\Date and Time Signed: 04/06/24 15:06 [id number] Evaluation + Plan noteExtracted from: Title:Pain Managment Follow up Author:Ade Puente Date:04/06/24 Impression and Plan Patient is a 44-year-old female with a past medical history significant for fibromyalgia she uses methocarbamol that she does not require refill, chronic pain and lumbar neuritis. At this time, her lower back pain with left radiating leg pain is her rate limiting factor. This affects her ambulatory status. This affects her quality of life. Affects her activities and affects her ability to do the things she wants to do. At this time, based on her failure to improve with conservative treatments including a recent full course of physical therapy I recommended obtaining an updated lumbar MRI scan for possible other injection options versus surgical consultation pending the results. Patient is agreeable. PAOLA score: 40%. [facility] 08-28-2024 NoteHNO ID: [id number] Author: ANDREAS FRENCH RT(R) Service: ? Author [...] PATIENT PRESENTS WITH AN IMPLANTABLE OR ATTACHED PRINTED CIRCUIT PHOTOGRAPHER: No ALLERGIES: Reviewed and unchanged CONTRAST ALLERGY: NO. EXAM: MRI - CONTRAST TYPE: GROUP II PERIPHERAL IV DATA: Ambulatory: A peripheral IV was started in the Left hand with a Angio cath: 24 gauge. RADIOLOGY DEPARTMENT: MR; Exam(s) Completed: Head: Routine Brain SIGNATURE: RT Jeevan(R) PATIENT NAME: Mitesh Burgess DATE: March 04, 2024 TIME: 3:26 [facility]08-28-2024 History of Present illness Narrative* Andreas French RT(R) - 03/04/2024 3:25 PM EDT Radiology Service Progress Note DATE [...] PATIENT PRESENTS WITH AN IMPLANTABLE OR ATTACHED PRINTED CIRCUIT PHOTOGRAPHER: No ALLERGIES: Reviewed and unchanged CONTRAST ALLERGY: NO. EXAM: MRI - CONTRAST TYPE: GROUP II PERIPHERAL IV DATA: Ambulatory: A peripheral IV was started in the Left hand with a Angio cath: 24 gauge. RADIOLOGY DEPARTMENT: MR; Exam(s) Completed: Head: Routine Brain SIGNATURE: RT Jeevan(R) PATIENT NAME: Mitesh Burgess DATE: March 04, 2024 TIME: 3:26 PM documented in this encounter[facility]24 NoteHNO ID: [id number] Author: GABRIELA BILL APRN.JILLIAN Service: ? Author Type: Nurse Practitioner Type: Progress Notes Filed: 02/07/2024 10:43 Note Text: Neurological [place] [facility] NEURO-ONCOLOGY OUTPATIENT NOTE PURPOSE [...] of objects. Good comprehe (more content not included)...[facility]08-02-2024 History of Present illness Narrative* Gabriela Bill APRN.MANAGER CORPORATE RESPONSIBILITY - 02/07/2024 10:26 AM EDT Images from the original note were not included. [facility] [place] [facility] NEURO-ONCOLOGY OUTPATIENT NOTE PURPOSE [...] DATE OF EXAM: Jan 24 2023 2:18PM [facility] 0295 - MRI BRAIN WO/W IVCON / PROCEDURE REASON: Brain tumor (HCC) * * * * Physician Interpretation * * * * EXAMINATION: MRI BRAIN WO/W IVCON HISTORY: Brain tumor (HCC) Per the electronic medical record: PMH chronic migraine stopped Emgality half year ago, anxiety, depression, skull mass, seen in the [facility] [place] for General Neurology for: Dizziness, headache and [...] and is most compatible with intraosseous hemangioma. Roughener: PSCB Transcribe Date/Time: Jan 24 2023 2:35P [...] - All questions were answered. Gabriela Bill APRN.MANAGER CORPORATE RESPONSIBILITY Certified Nurse Practitioner cc: Nathanael Ryan MD--EPIC documented in this encounterOhio State University [facility]08-02-2024 Nurse Note* Ade Patten MA - 02/07/2024 10:22 AM EDT Additional intake questions: Has the patient had fever, nausea, vomiting, diarrhea, constipation, fatigue for > 1 week? No Does the patient have a decreased appetite? No Does patient want to see a Senior Sql Server Developer? No (yes to any of above refer patient to schedulers for dietitian appointment) ) Does patient have any new or increased numbness or tingling of extremities? No Is patient interested in fertility information? No Does patient need any prescription refills? No Does patient have an advanced directive in place? No, Patient referred to [facility]08-02-[facility] Nurse Note* Ade Patten MA - 02/07/2024 10:22 AM EDT Additional intake questions: Has the patient had fever, nausea, vomiting, diarrhea, constipation, fatigue for > 1 week? No Does the patient have a decreased appetite? No Does patient want to see a Senior Sql Server Developer? No (yes to any of above refer patient to schedulers for dietitian appointment) ) Does patient have any new or increased numbness or tingling of extremities? No Is patient interested in fertility information? No Does patient need any prescription refills? No Does patient have an advanced directive in place? No, Patient referred to [facility] documented in this encounterOhio State University [facility]05-06-2024 NoteHNO ID: [id number] Author: STALIN REYES MD Service: ? Author Type: Physician Type: Progress Notes Filed: 11/11/2023 13:34 Note Text: [facility] General Neurology Follow up/ Established patient visit Individuals who were included in, or assisted with the encounter were: Mitesh Burgess Stalin Reyes MD Chief Complaint/Issues: Mitesh Burgess is a 43 year old R handed female w PMH chronic migraine on Emgality, anxiety, depression, tardive dyskinesia from psychiatric meds on [place], skull mass following with brain tumor clinic, seen in the [facility] [place] for General Neurology for: Dizziness, headache and hand tremor Most Recent Neurological Assessment and Plan: Last Filed Values Date of Most Recent Assessment and Plan 05/08/23 Specialty General Neurology Assessment Mitesh Burgess is a 43 year old R handed female w PMH chronic migraine stopped Emgality half year ago, anxiety, depression, skull mass, seen in the [facility] [place] for General Neurology for: 1. Dizziness, headache [...] Burgess is a 4 (more content not included)...[employer] 11-11-2023 NoteHNO ID: [id number] Author: NOREEN WEBBER MA Service: ? Author Type: Inside Sales Advisor Type: Progress Notes Filed: 11/11/2023 13:34 Note [...] Apnea Probability Score: 17 (Sleep study not recommended)[employer] [id number] Instructions* Patient Instructions* Stalin Reyes MD - 11/11/2023 1:14 PM EDT --Your Pristiq may cause dizziness. You can consider to reduce it to 100mg daily to see whether thedizziness gets better or not --Vestibular therapy for your dizziness --Continue Emgality --try vitamin B2 at 100mg daily for headache prevention --Limit tylenol to less than 2 days a week documented in this encounterOhio State University [facility]05-06-2024 History of Present illness Narrative* Stalin Reyes MD - 11/11/2023 12:47 PM EDT Images from the original note were not included. [facility] for General Neurology Follow up/ Established patient visit Individuals who were included in, or assisted with the encounter were: Mitesh Burgess Stalin Reyes MD Chief Complaint/Issues: Mitesh Burgess is a 43 year old R handed female w PMH chronic migraine on Emgality, anxiety, depression, tardive dyskinesia from psychiatric meds on [place], skull mass following with brain tumorclinic, seen in the [facility] [place] for General Neurology for: Dizziness, headache and hand tremor Most Recent Neurological Assessment and Plan: Last Filed Values Date of Most Recent Assessment and Plan 05/08/23 Specialty General Neurology Assessment Mitesh Burgess is a 43 year old R handed female w PMH chronic migraine stopped Emgality half year ago, anxiety, depression, skull mass, seen in the [facility] [place] for General Neurology for: 1. Dizziness, headache [...] no acute distress, good nutritional status, normal development,well-kept Neurological Exam Mental Status Alert, fully oriented, attentive, with normal cognition, memory, speech and affect. Cranial Nerves Extraocular movements normal. No nystagmus, no ptosis, and pupils equal. Face symmetrical. Tongue normal. Motor Examination and Coordination Motor examination with normal bulk, strength and tone. No drift. Normal rapid alternating movementsand coordination. Tardive dyskinesia in her tongue. No [...] on [place], skull mass following with brain tumorclinic, seen in the [facility] [place] for General Neurology for: 1. Dizziness, headache [...] on 06/24/18 EMG(NEURO/NI) Result Value Ref Range Tugger Operator Please click on 'View Neuro EMG' [...] which included preparing to see the patient, tsvw-xe-rgkw patient care, completing clinical documentation, obtaining and/or [...] Probability Score: 17 (Sleep study not recommended) * Noreen Webber MA - 11/11/2023 12:40 PM EDT 11/04/2023 PROMIS Global Health Physical Health Summary [...] (Sleep study not recommended) documented in this encounterOhio State University [facility]05-06-2024 Telephone encounter Note * Telephone Encounter - Yessica Smith - 11/11/2023 7:58 AM EDT Physician: Dr Reyes Call from pharmacy requesting refill. Please E-Scribe Last OV: 05/08/23 with Man Future OV: 11/11/23 with Man Requested Prescriptions Pending Prescriptions Disp Refills galcanezumab-gnlm (EMGALITY PEN) 120 mg/mL pen 1 mL 5 Sig: Inject 1 mL under the skin once every month. Do not shake. [facility] Phone #: [phone] Yessica Saunders [facility]05-06-2024 Miscellaneous Notes* Telephone Encounter - Yessica Smith - 11/11/2023 7:58 AM EDT Physician: Dr Reyes Call from pharmacy requesting refill. Please E-Scribe Last OV: 05/08/23 with Man Future OV: 11/11/23 with Man Requested Prescriptions Pending Prescriptions Disp Refills galcanezumab-gnlm (EMGALITY PEN) 120 mg/mL pen 1 mL 5 Sig: Inject 1 mL under the skin once every month. Do not shake. Pharmacy [facility] Phone #: [phone] Yessica Saunders documented in this encounterOhio State University [facility]04-22-2024 Hospital Discharge instructions Patient Education 10/28/2023 20:38:27 Renal Mass Renal Mass A renal mass is an abnormal growth in the kidney. It may be found while performing an MRI, CT scan,or ultrasound to evaluate other problems of the abdomen. A renal mass that is cancerous (malignant)may grow or spread quickly. Others are not [...] the cause of your renal mass. These testsmay be done if a renal mass is [...] of the mass. Follow the instructions that yourhealth care provider gives to you. In general: Take jbxs-vcj-qzvtjok and prescription medicines only as told by your health care provider. If you were prescribed an antibiotic medicine, take it as told by your health care provider. Do notstop taking the antibiotic even if you start [...] scan, or ultrasound for other problems of theabdomen. Your health care provider may recommend that [...] provider. Document Revised: 12/19/2020 Document Reviewed: 12/19/2020 [employer] Patient Education 2022 CM Sistemi. Follow Up Care 10/28/2023 17:26:09 With:Luis Armando JANETH Address: [address] [address]- Business (1) [facility] [address] [place] [address]- Business (1) When:10/31/2023 20:24:50 Comments:Call for diagnosis based follow up With:Pepe Alcazar Address: [facility] [place] [address] Business (1) When:Within 3 Day(s) [facility]2024 Evaluation + Plan noteExtracted from: Title:ED Note Author:Dandy Ashton DO Date :09/28/23 Cough (R05.9: Cough, unspeci fied) Orders: brompheniramine/dextromethorphan/PSE, 5 mL, Oral, QID for cough and congestion, 200 mL, Refill(s) 0, [facility]/pharmacy #[id number], 160, cm, 09/28/23 1:17:00 EDT, Height/Length Dosing, 97.9, kg, 09/28/23 1:17:00 EDT, Weight Dosing dexamethasone, 10 mg = 2.5 mL, Injection, Oral, Once, Stop date 09/28/23 2:17:00 EDT, STAT, Start date 09/28/23 2:17:00 EDT, 09/28/23 2:17:00 EDT Influenza A&B Ag Rapid COVID Antigen ([facility]) XR Chest 2 Views [facility]2024 Hospital Discharge instructions Patient Education [...] Follow these instructions at home: Medicines Take awvn-bum-pznkcyp and prescription medicines only as told by [...] of a condition that needs treatment. Take scgi-ioo-ulfmewn and prescription medicines only as told by [...] provider. Document Revised: 07/13/2019 Document Reviewed: 07/13/2019 [employer] Patient Education 2022 CM Sistemi. Follow Up Care 09/28/2023 01:07:11 With:Pepe Tannerdank Address: [address] [place], [place] [address]- Business (1) When:10/05/2023 only if needed [facility]03-13-2024 Hospital Discharge instructions Patient Education [...] help with your condition: Managing pain Take isqy-vds-mmgynft and prescription medicines only as told by [...] provider. Document Revised: 11/22/2021 Document Reviewed: 11/22/2021 [employer] Patient Education 2022 CM Sistemi. Follow Up Care 09/17/2023 20:39:37 With:Pepe Alcazar Address: [address] [place], [place] [address] Business (1) When:Within 3 Day(s) [facility]03-12-2024 Evaluation + Plan noteExtracted from: [...] 09/17/23 20:50:00 EDT, Infuse over 61, minute(s) [facility]12-04-2023 Evaluation + Plan noteExtracted from: [...] reevaluation to discuss options PAOLA score: 36% [facility]11-01-2023 NoteHNO ID: [id number] Author: Stalin Reyes MD Service: ? Author Type: Physician Type: Progress Notes Filed: 05/08/2023 3:40 PM Note Text: [facility] General Neurology Follow up/ Established patient visit Individuals who were included in, or assisted with the encounter were: Mitesh Burgess Stalin Reyes MD Chief Complaint/Issues: Mitesh Burgess is a 43 year old R handed female w PMH chronic migraine stopped Emgality half year ago, anxiety, depression, skull mass, seen in the [facility] [place] for General Neurology for: Dizziness, headache and tremor Most Recent Neurological Assessment and Plan: Last Filed Values Date of Most Recent Assessment and Plan 12/17/22 Specialty General Neurology Assessment Mitesh Burgess is a 42 year old R handed female w PMH chronic migraine stopped Emgality half year ago, anxiety, depression, skull mass, seen in the [facility] [place] for General Neurology for: 1. Dizziness, headache [...] pain management. Her pain management is absent [facility]. She has been on Lyrica 300 [...] intact. Fundi with normal (more content not included)...[employer] [id number] Instructions* Patient Instructions* Stalin Reyes MD - [...] 6 months documented in this encounterOhio State University [facility]11-01-2023 History of Present illness Narrative* Stalin Reyes MD - 05/08/2023 2:21 PM EDT Images from the original note were not included. [facility] General Neurology Follow up/ Established patient visit Individuals who were included in, or assisted with the encounter were: Mitesh Reyes MD Chief Complaint/Issues: Mitesh Kendall Burgess is a 43 year old R handed female w PMH chronic migraine stopped Emgality half year ago, anxiety, depression, skull mass, seen in the [facility] for General Neurology for: Dizziness, headache and tremor Most Recent Neurological Assessment and Plan: Last Filed Values Date of Most Recent Assessment and Plan 12/17/22 Specialty General Neurology Assessment Mitesh Kendall Burgess is a 42 year old R handed female w PMH chronic migraine stopped Emgality half year ago, anxiety, depression, skull mass, seen in the [facility] for General Neurology for: 1. Dizziness, headache [...] pain management. Her pain management is absent [facility]. She has been on Lyrica 300 [...] anxiety, depression, skull mass, seen in the [facility] for General Neurology for: 1. Dizziness, headache [...] on 06/24/18 EMG(NEURO/NI) Result Value Ref Range Tugger Operator Please click on 'View Neuro EMG' [...] which included preparing to see the patient, wtxq-qi-pcso patient care, completing clinical documentation, obtaining and/or reviewing separately obtained history, performing a medically appropriate examination, counseling and educating the pat ient/family/caregiver, ordering medications, tests, or procedures, independently interpreting results (not separately reported), communicating results to the patient/family/caregiver, and care coordination (not separately reported). Stalin Reyes MDThere is no data to display for this encounter documented in this encounterOhio State University [facility]10-13-2023 Evaluation + Plan note Extracted from: Title:Pain Managment Follow up Author:Ade Puente [...] Refill of Lyrica sent. PAOLA score: 42% [facility]09-08-2023 Evaluation + Plan noteExtracted from: [...] EDT, 500 mL/hr, Infuse over 1, hour(s) [facility]09-08-2023 Hospital Discharge instructions Patient Education [...] Follow these instructions at home: Medicines Take gngw-uln-gknkfpt and prescription medicines only as told by your health care provider. Ask your health care provider if the medicine prescribed to you: ?Requires you to avoid driving or using heavy machinery. ?Can cause constipation. You may need to take these actions to prevent or treat constipation: ?Drink enough fluid to keep your urine pale yellow. ?Take nkqb-kaq-qfmcvbg or prescription medicines. ?Eat foods that are [...] provider. Document Revised: 10/16/2019 Document Reviewed: 08/06/2019 [employer]ak[employer] Patient Education 2022 CM Sistemi. Follow Up Care 03/14/2023 21:27:36 With:Pepe Alcazar Address: [address] [place], [place] [address]- Business (1) When:03/18/2023 Comments:Return to the emergency room if your headache recurs or any new symptoms. [facility]08-01-2023 History of Present illness Narrative* Nathanael Ryan MD - 02/05/2023 10:09 AM EDT Images from the original note were not included. [facility] New Patient Consultation Referred by Stalin Reyes [address] [facility] [id number] Diagnosis: skull hemangioma Subjective History of Present [...] the edge off. Refrred by her neurologist Stailn Diaz for opinion regarding the skull mass. [...] anxiety, depression, skull mass, seen in the [facility] for General Neurology for: Dizziness, headache and [...] and is most compatible with intraosseous hemangioma. Roughener: [facility] Transcribe Date/Time: Jan 24 2023 2:35P Dictated by : DONAL BURNS MD This examination was interpreted and the report reviewed and electronically signed by: DONAL BURNS MD on Jan 24 2023 2:42PM EST Data Review: Arnold Sanchez MD 10:26 AM 02/05/2023 [facility] Personal review of medical records: I reviewed the [facility] chart. Personal review of image, tracing [...] which included preparing to see the patient, ueci-jh-hcin patient care, completing clinical documentation, obtaining and/or reviewing separately obtained history, counseling and educating the patient/family/caregiver, independently interpretin g results (not separately reported), and care coordination (not separately reported). Nathanael Ryan MD February 05, 2023 10:46 AM documented in this encounterOhio State University [facility]08-01-2023 Nurse Note* Ade Patten Ma - 02/05/2023 9:40 AM EDT Additional intake questions: Has the patient had fever, nausea, vomiting, diarrhea, constipation, fatigue for > 1 week? No Does the patient have a decreased appetite? No Does patient want to see a Senior Sql Server Developer? No (yes to any of above refer patient to schedulers for dietitian appointment) ) Does patient have any new or increased numbness or tingling of extremities? No Is patient interested in fertility information? No Does patient need any prescription refills? No Does patient have an advanced directive in place? No, Patient referred to [facility] documented in this encounterOhio State University [facility]07-21-2023 Telephone encounter Note * Telephone Encounter - Gabriela Bill APRN.CNP - 01/25/2023 8:01 AM EDT Time Frame: Next available Provider: Any Neurosurgeon Referring: Stalin Reyes Dx: 2.7 cm enhancing lesion, likely hemangioma Gabriela Bill APRN.CNP [facility] Work Phone: 1(311) 571-148607-21-2023 Miscellaneous Notes* Telephone Encounter - Gabriela Bill [...] have you been seen at? [facility] 6. Epic: Please allow up [...] expectation? appointment documented in this encounterOhio State University [facility]07-20-2023 History of Present illness Narrative* [...] 2:05 PM documented in this encounterOhio State University [facility]06-21-2023 Telephone encounter Note * Telephone Encounter - Gabriela Bill APRN.CNP - 12/26/2022 9:09 PM EDT Please obtain MRI report and any neurosurgical notes pertaining to diagnosis. Once received please re-triage. Gabriela Bill APRN.CNP [facility]06-21-2023 Telephone encounter Note* Telephone Encounter [...] have you been seen at? [facility] 6. Epic: Please allow up [...] What is your expectation? appointment [facility] Work Phone: [phone]) 163-306906-15-2023 Miscellaneous Notes* Telephone Encounter - Keesha Tirado RN - 12/20/2022 3:58 PM EDT Ambulatory Pharmacy Prior Authorization Note Provider Intervention Required?: No- Pharmacy completed on your behalf. Rx Plan: Medicaid [facility] ([facility]) Drug: Emgality 120MG/ML auto-injectors (migraine) Cover My Meds Garcia: [id number] Determination: Approved Prior Authorization/Case #: n/a Prior [...] refills. Prescriptions will now be processed through [facility] for determination of next steps. For questions relating to this submission, please contact [facility] at [phone] * Telephone Encounter - Keesha Tirado RN - 12/18/2022 4:55 PM EDT [facility] received prescription(s) for Emgality 120MG/ML auto-injectors (migraine). Benefits investigation was conducted, indicating that a prior authorization is required. PA was initiated and pending review through [employer]. All pertinent clinical information was submitted to insurance. CMM Garcia: [id number] Ordering Provider: MD Celestino Etienne Alisha, RN [facility] P: , F: documented in this encounterOhio State University [facility]xner [facility] Center06-12-2023 NoteHNO ID: [id number] Author: Stalin Reyes MD Service: ? Author Type: Physician Type: Progress Notes Filed: 12/17/2022 2:28 PM Note Text: [facility] for General Neurology Follow up/ Established patient visit Individuals who were included in, or assisted with the encounter were: Mitesh Kendall Burgess Stalin Reyes MD Chief Complaint/Issues: Mitesh Burgess is a 42 year old R handed female w PMH chronic migraine stopped Emgality half year ago, anxiety, depression, skull mass, seen in the [facility] for General Neurology for: Dizziness, headache and [...] anxiety, depression, skull mass, seen in the [facility] for General Neurology for: 1. Dizziness, headache [...] and depression PLAN --W (more content not included)...[id number] Note Attestation signed by Eduardo Clemente MD [...] motion with home PT exercises. 08/28/22 Mitesh Brugess is a 42 y.o. year old female [...] available for review today. MRI report from [facility] was reviewed stating the possibility of [...] WIN MD Orthopedic Surgery, PGY-1 Ortho Pager [phone] 10/13/22 1:38 [facility] Evaluation + Plan noteExtracted from: Title:Pain Managment Follow up Author:Ade Puente Date:10/01/22 Impression and Plan Patient is a 42-year-old female with a past medical history significant for lumbar neuritis, sacroiliitis, myalgia, left hip and knee pain. She also has some shoulder issues. She is seeing somebody at the [facility] for this. She has an appointment with [...] Date:11/02/2022 01:00:00 PM Scheduled Provider:Ade Talamantes PA-C Location:.[facility] Appointment Type:Pain Management - Follow Up (FT) [facility]02-21-2023 Note Attestation signed by Eduarod Clemente MD at 08/28/2022 1:44 PM I [...] available for review today. MRI report from [facility] was reviewed stating the possibility of [...] Jim Carranza MD Orthopedic Surgery, PGY-5 Pager: [phone] 08/28/22 11:42 AM By using the attestations [...] for reevaluation. Call clinic sooner if necessary. [facility]10-05-2022 Hospital Discharge instructions Patient Education [...] fried or sweet foods. General instructions Take evlg-soh-wlncloo and prescription medicines only as told by [...] 06/14/2003 Document Revised: 07/20/2019 Document Reviewed: 07/03/2018 [employer] Patient Education 2020 CM Sistemi. 04/11/2022 17:19:39 Neuropathic Pain Neuropathic Pain Neuropathic [...] treated? Treatment for neuropathic pain may change management consultant time. You may need to try different treatment options or a combination of treatments. Some options include: Treating the underlying cause of the neuropathy, such as diabetes, kidney disease, or vitamin deficiencies. Stopping medicines that can cause neuropathy, such as chemotherapy. Medicine to relieve pain. Medicines may include: ?Prescription or wpcp-ygb-ttfclom pain medicine. ?Anti-seizure medicine. ?Antidepressant medicines. ?Pain-relieving [...] Follow these instructions at home: Medicines Take ynkh-zbe-rgpmmqt and prescription medicines only as told by [...] as fried or sweet foods. ?Take an lvop-exi-yvarmxn or prescription medicine for constipation. Lifestyle Have [...] 03/21/2005 Document Revised: 10/15/2019 Document Reviewed: 07/11/2018 [employer] Patient Education 2020 CM [employer]. Follow Up Care 04/11/2022 14:37:42 With:Chay Carter Address: [address] [place] [address]- Business (1) When:04/12/2022 16:43:30 With:Jr Martines Address: [address], [place] [address]- Business (1) When:04/12/2022 16:43:28 With:Pepe Alcazar Address: [address] [place] [address]- Business (1) When:Within 3 Day(s) [facility]10-05-2022 Evaluation + Plan noteExtracted from: [...] Date:05/18/2022 11:15:00 AM Scheduled Provider:Ade Talamantes PA-C Location:[facility] Appointment Type:Pain Management - Follow Up (FT) [facility]10-03-2022 Evaluation + Plan noteExtracted from: [...] had some falls and went to the [facility] and has had a lot of [...] Date:05/18/2022 11:15:00 AM Scheduled Provider:Ade Talamantes PA-C Location:FT.[facility] Appointment Type:Pain Management - Follow Up (FT) [facility]09-22-2022 NotePROCEDURE: XR SHOULDER LT 2V or > COMPARISON: None. HISTORY: Acute pain due to injury FINDINGS: BONES:No fracture, acute abnormality, or significant arthropathy. SOFT TISSUES:Negative. No visible soft tissue swelling. EFFUSION:None visible. OTHER: Negative. IMPRESSION: No acute abnormality Electronically authenticated by: EDUARDO CROSS Date: 2022-03-29 16:01[facility]08-05-2022 Evaluation + Plan noteExtracted from: Title:Pain management [...] Date:03/26/2022 11:15:00 AM Scheduled Provider:Ade Talamantes PA-C Location:FT.[facility] Appointment Type:Pain Management - Follow Up (FT) [facility]05-13-2022 Evaluation + Plan noteExtracted from: [...] reevaluation. Call the clinic sooner if necessary. [facility] Future Appointments Appointment Date:11/17/2021 08:45:00 AM Scheduled Provider:Ade Talamantes PA-C Location:[facility] [place] Appointment Type:Pain Management - Follow Up (FT) [facility] Future Appointments Appointment Date:02/09/2022 10:00:00 AM Scheduled Provider:Ade Talamantes PA-C Location:[facility] [place] Appointment Type:Pain Management - Follow Up (FT) [facility] Future Appointments Appointment Date:03/26/2022 11:15:00 AM Scheduled Provider:Ade Talamantes PA-C Location:[facility] Appointment Type:Pain Management - Follow Up (FT) [facility] Future Appointments Appointment Date:03/26/2022 11:15:00 AM Scheduled Provider:Ade Talamantes PA-C Location:[facility] Appointment Type:Pain Management - Follow Up (FT) Diagnostic Tests Pending * T3 Free 02/21/22 [facility] Future Appointments Appointment Date:04/30/2022 04:45:00 PM Scheduled Provider: Location:[facility] [place] Appointment Type:PT Eval (FT) Appointment Date:05/18/2022 11:15:00 AM Scheduled Provider:Ade Talamantes PA-C Location:[facility] [place] Appointment Type:Pain Management - Follow Up (FT) Diagnostic Tests Pending * Group A Strep by PCR 04/23/22 [facility] Future Appointments Appointment Date:08/14/2022 10:00:00 AM Scheduled Provider: Location:[facility] Appointment Type:Surgery FT Appointment Date:08/31/2022 08:45:00 AM Scheduled Provider:Ade Talamantes PA-C Location:[facility] [place] Appointment Type:Pain Management - Follow Up (FT) [facility] Future Appointments Appointment Date:08/31/2022 08:45:00 AM Scheduled Provider:Ade Talamantes PA-C Location:[facility] [place] Appointment Type:Pain Management - Follow Up (FT) [facility] Future Appointments Appointment Date:10/01/2022 10:30:00 AM Scheduled Provider:Ade Talamantes PA-C Location:[facility] [place] Appointment Type:Pain Management - Follow Up (FT) [facility] Future Appointments Appointment Date:06/10/2023 03:00:00 PM Scheduled Provider:Ade Talamantes PA-C Location:[facility] [place] Appointment Type:Pain Management - Follow Up (FT) [facility] Future Appointments Appointment Date:06/17/2024 03:15:00 PM Scheduled Provider:Ade Talamantes PA-C Location:[facility] [place] Appointment Type:Pain Management - Follow Up (FT) [facility] Evaluation + Plan note Future Appointments Appointment Date:09/01/2024 03:15:00 PM Scheduled Provider:Ade Talamantes PA-C Location:[facility] [place] Appointment Type:Pain Management - Follow Up (FT) [facility] Evaluation note* Diagnosis 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 Brain tumor (HCC) Neoplasm of unspecified nature of brain [facility] Diagnosis Radiculopathy, lumbar region- Primary Thoracic or lumbosacral neuritis or radiculitis, unspecified Intractable chronic migraine without aura and without status migrainosus Chronic migraine without aura, with intractable migraine, so stated, without mention of status migrainosus Essential tremor Essential and other specified forms of tremor Depression, unspecified depression type Anxiety Anxiety state, unspecified [facility] Diagnosis Intractable chronic migraine without aura and without status migrainosus- Primary Chronic migraine without aura, with intractable migraine, so stated, without mention of status migrainosus Dizziness Dizziness and giddiness Depression, unspecified depression type Anxiety Anxiety state, unspecified Tardive dyskinesia Subacute dyskinesia due to drugs Drug-induced tremor Abnormal involuntary movements [facility] Diagnosis Skull lesion- Primary Disorder of bone and cartilage, unspecified [facility] Diagnosis Hemangioma of bone Hemangioma of other sites documented [facility] Diagnosis Brain tumor (HCC) Neoplasm of unspecified nature of brain documented [facility] Diagnosis Radiculopathy, lumbar region Thoracic or lumbosacral neuritis or radiculitis, unspecified [facility] Diagnosis Lumbar radiculopathy- Primary Thoracic or lumbosacral neuritis or radiculitis, unspecified documented in this encounter [facility]* Diagnosis Lumbar radiculopathy- Primary Thoracic or lumbosacral neuritis or radiculitis, unspecified documented in this encounter [facility]* Diagnosis Lumbar radiculopathy- Primary Thoracic or lumbosacral neuritis or radiculitis, unspecified documented in this encounter [facility]* Diagnosis Lumbar radiculopathy- Primary Thoracic or lumbosacral neuritis or radiculitis, unspecified documented [facility] encounter [facility]* Diagnosis Lumbar radiculopathy- Primary Thoracic or lumbosacral neuritis or radiculitis, unspecified documented in this encounter [facility] HealthcareEvaluation noteNo assessment information availableUc [facility] Work Phone: Hospital course Narrative No data available for this section [facility] No data available for this section [facility] Discharge instructions Additional Instructions Take Relafen or Tylenol if needed for pain Take Zanaflex if needed for muscle spasm Consider you with your Lyrica Follow-up with pain management, today or tomorrow let them know that you injured T12 to see if they want thoracic MRI added onto the lumbar MRI to schedule for August 25. Rest Ice for the next 24 to 48 hours Return here if any problems persist or [facility]sen[facility] Work Phone: Progress note No data available for this section [facility] for visit Narrative* Rehabilitation - Outpatient (Routine) - Closed Specialty Diagnoses / Procedures Referred By Miguel Angel paulino Referred To Contact Physical Therapy Diagnoses Radiculopathy, lumbar region Procedures HI PHYS THERAPY EVALUATION Ade Talamantes MD [address] [place] [address] Phone: tel: fax: Tran Gu, PT [address] [place] [address] Phone: tel: fax: Referral ID Status Reason Start Date Expiration Date V isits Requested Visits Authorized [id number] Closed Consult and Treat 04/15/2024 10/12/2024 1 1 [facility] [place] for visit Narrative* Rehabilitation - Outpatient (Routine) - Authorized Specialty Diagnoses / Procedures Referred By Miguel Angel paulino Referred To Contact Physical Therapy Diagnoses Radiculopathy, lumbar region Procedures HI PHYS THERAPY EVALUATION Ade Talamantes MD [address] [place] [address] Phone: tel: fax: Tran Gu, PT [address] [place] [address] Phone: tel: fax: Referral ID Status Reason Start Date Expiration Date Visits Requested Visits Authorized [id number] Authorized Consult and Treat 04/15/2024 05/25/2024 1 12 [facility] Summary Purpose Family History No Family History [...] Found Advance Directives No Advanced Directives Records Found Advance Directive Response Recorded Date/ Time Advance Directives No September 25, 2 018 10:33am Reason for Referral Specialty Diagnoses / Procedures Referred By Contac t Referred To Contact MR IMAGING Diagnoses Brain tumor (HCC) Procedures MRI BRAIN WO/W IVCON MRI BRAIN BRAIN STEM W/O W/CONTRAST tub menderStalin Reyes MD [id number] Mr Imaging [facility] Referral ID Status Reason Start Date Expiration Date V isits Requested Visits Authorized [id number] Closed Auto-Generate d Referral 01/11/2023 03/12/2023 1 1 Specialty Diagnoses / Procedures Referred By Contac t Referred To Contact MR IMAGING Diagnoses Hemangioma of bone Procedures MRI BRAIN WO/W IVCON MRI BRAIN BRAIN STEM W/O W/CONTRAST MATERIAL Nathanael Ryan MD [address] [place] [address] [facility] Referral ID Status Reason Start Date Expiration Date V isits Requested Visits Authorized [id number] Closed Auto-Generate d Referral 01/22/2024 03/22/2024 1 1 Specialty Diagnoses / Procedures Referred By Contac t Referred To Contact [facility] Diagnoses Dizziness Procedures CONSULT TO PHYSICAL THERAPY PHYSICAL THERAPY EVALUATION HIGH COMPLEX 45 MINS Stalin Reyes MD [address] [place] [address] [facility] [place] [address] [place] [address] Referral ID Status Reason Start Date Expiration Date Visits Requested Visits Authorized [id number] Pending Review Auto-Generat ed Referral 11/11/2023 11/10/2024 1 1 Chief Complaint and Reason for Visit Chief Complaint Admit Date August 18, 2024 11:21am fall August 20, 2024 12:30pm Additional Source Comments INFORMATION SOURCE (unrecogn ized section and content) DATE CREATED AUTHOR 12/26/2017 [facility] [place] DATE CREATED AUTHOR AUTHOR'S ORGANIZ ATION 10/13/2022 [facility] DATE CREATED AUTHOR AUTHOR'S ORGANIZ ATION 10/15/2022 [facility] DATE CREATED AUTHOR AUTHOR'S ORGANIZ ATION 11/12/2023 [facility] DATE CREATED AUTHOR AUTHOR'S ORGANIZ ATION 03/07/2024 [facility] DATE CREATED AUTHOR AUTHOR'S ORGANIZ ATION 05/17/[address] [facility] EPIC DATE CREATED AUTHOR AUTHOR'S ORGANIZ ATION 06/07/2024 [facility] DATE CREATED AUTHOR AUTHOR'S ORGANIZ ATION 01/23/2025 [facility] DATE CREATED AUTHOR AUTHOR'S ORGANIZ ATION 02/03/2025 [facility] Care Team (unrecognized sect ion and content) Telephone Sales Agent Relationship Specialty Start Date End Date Pepe Alcazar MD PCP - General Family Medicine 05/10/15 Telephone Sales Agent Relationship Specialty Start Date End Date Pepe Alcazar MD PCP - General Family Medicine 05/10/15 Telephone Sales Agent Relationship Specialty Start Date End Date Pepe Alcazar MD PCP - General Family Medicine 05/10/15 Telephone Sales Agent Relationship Specialty Start Date End Date Pepe Alcazar MD PCP - General Family Medicine 05/10/15 Telephone Sales Agent Relationship Specialty Start Date End Date Pepe Alcazar MD PCP - General Family Medicine 05/10/15 Telephone Sales Agent Relationship Specialty Start Date End Date Pepe Alcazar MD PCP - General Family Medicine 05/10/15 Telephone Sales Agent Relationship Specialty Start Date End Date Pepe Alcazar MD PCP - General Family Medicine 05/10/15 Telephone Sales Agent Relationship Specialty Start Date End Date Pepe Alcazar MD PCP - General Family Medicine 05/10/15 Telephone Sales Agent Relationship Specialty Start Date End Date Pepe Alcazar MD PCP - General Family Medicine 05/10/15 Telephone Sales Agent Relationship Specialty Start Date End Date Pepe Alcazar MD PCP - General Family Medicine 05/10/15 Telephone Sales Agent Relationship Specialty Start Date End Date Pepe Alcazar MD PCP - General Family Medicine 05/10/15 Telephone Sales Agent Relationship Specialty Start Date End Date Pepe Alcazar MD PCP - General Family Medicine 05/10/15 Telephone Sales Agent Relationship Specialty Start Date End Date Pepe Alcazar MD PCP - General Family Medicine 05/10/15 Telephone Sales Agent Relationship Specialty Start Date End Date ePpe Alcazar MD [address] [place] [facility] [address] PCP - General Family Medicine 12/04/23 Telephone Sales Agent Relationship Specialty Start Date End Date Pepe Alcazar MD [address] [place] [facility] [address] PCP - General Family Medicine 12/04/23 Telephone Sales Agent Relationship Specialty Start Date End Date Pepe Alcazar MD [address] [place] [facility] [address] PCP - General Family Medicine 12/04/23 Telephone Sales Agent Relationship Specialty Start Date End Date Pepe Alcazar MD [address] [place] [facility] [address] PCP - General Family Medicine 12/04/23 Telephone Sales Agent Relationship Specialty Start Date End Date Pepe Alcazar MD [address] [place] [facility] [address] PCP - General Family Medicine 12/04/23 Telephone Sales Agent Relationship Specialty Start Date End Date Pepe Alcazar MD [address] [place] [facility] [address] PCP - General Family Medicine 12/04/23 Telephone Sales Agent Relationship Specialty Start Date End Date Pepe Alcazar MD [address] [place] [facility] [address] PCP - General Family Medicine 12/04/23 Telephone Sales Agent Relationship Specialty Start Date End Date Pepe Alcazar MD [address] [facility] [place] [address] PCP - General Family Medicine 12/04/23 Telephone Sales Agent Relationship Specialty Start Date End Date Pepe Alcazar MD [address] [facility] [place] [address] PCP - General Family Medicine 12/04/23 Team Status: Active Member Role Status Dates Pepe Alcazar MD Primary Care Provider Active Team Status: Active Member Role Status Dates Pepe Alcazar MD Primary Care Provider Active Start: August 18, 2024 Devon Romo MD Attending Provider Active Start: August 18, 2024 Team Status: Inactive Member Role Status Dates Pepe Alcazar MD Primary Care Provider Active Start: August 20, 2024 End: August 20, 2024 Emily Mcgill APRN Emergency Provider Active Start: August 20, 2024 End: August 20, 2024 Source Comments (unrecognize d section and content) In the event this informatio n is protected by the Federal Confidentiality of Alcohol and Drug Abuse Patient Records regulations: The Federal rules restrict any use of the information to criminally investigate or prosecute any alcohol or drug abuse patient.[facility] the event this information is protected by the Federal Confidentiality of Alcohol and Drug Abuse Patient Records regulations: The Federal rules restrict any use of the information to criminally investigate or prosecute any alcohol or drug abuse patient.[facility] Center[facility] the event this information is protected by the Federal Confidentiality of Alcohol and Drug Abuse Patient Records regulations: The Federal rules restrict any use of the information to criminally investigate or prosecute any alcohol or drug abuse patient.[facility] Center[facility] the event this information is protected by the Federal Confidentiality of Alcohol and Drug Abuse Patient Records regulations: The Federal rules restrict any use of the information to criminally investigate or prosecute any alcohol or drug abuse patient.[facility] Center[facility] the event this information is protected by the Federal Confidentiality of Alcohol and Drug Abuse Patient Records regulations: The Federal rules restrict any use of the information to criminally investigate or prosecute any alcohol or drug abuse patient.[facility] Center[facility] the event this information is protected by the Federal Confidentiality of Alcohol and Drug Abuse Patient Records regulations: The Federal rules restrict any use of the information to criminally investigate or prosecute any alcohol or drug abuse patient.[facility] CenterIn the event this information is protected by the Federal Confidentiality of Alcohol and Drug Abuse Patient Records regulations: The Federal rules restrict any use of the information to criminally investigate or prosecute any alcohol or drug abuse patient.[facility] Center[facility] the event this information is protected by the Federal Confidentiality of Alcohol and Drug Abuse Patient Records regulations: The Federal rules restrict any use of the information to criminally investigate or prosecute any alcohol or drug abuse patient.[facility] CenterIn the event this information is protected by the Federal Confidentiality of Alcohol and Drug Abuse Patient Records regulations: The Federal rules restrict any use of the information to criminally investigate or prosecute any alcohol or drug abuse patient.[facility] CenterIn the event this information is protected by the Federal Confidentiality of Alcohol and Drug Abuse Patient Records regulations: The Federal rules restrict any use of the information to criminally investigate or prosecute any alcohol or drug abuse patient.[facility] CenterIn the event this information is protected by the Federal Confidentiality of Alcohol and Drug Abuse Patient Records regulations: The Federal rules restrict any use of the information to criminally investigate or prosecute any alcohol or drug abuse patient.[facility] CenterIn the event this information is protected by the Federal Confidentiality of Alcohol and Drug Abuse Patient Records regulations: The Federal rules restrict any use of the information to criminally investigate or prosecute any alcohol or drug abuse patient.[facility] CenterIn the event this information is protected by the Federal Confidentiality of Alcohol and Drug Abuse Patient Records regulations: The Federal rules restrict any use of the information to criminally investigate or prosecute any alcohol or drug abuse patient.[facility] Reason for Visit (unrecogniz ed section and content) Reason Comments Insurance Authorization Emgality 120MG/M L auto-injectors (migraine) Reason Comments Radiology MRI Reason Comments New Patient Specialty Diagnoses / Procedures Referred By Contac t Referred To Contact Neurosurgery Diagnoses Brain tumor (HCC) Procedures CONSULT TO NEUROSURGERY OFFICE/OUTPATIENT NEW HIGH MDM 60-74 MINUTES Stalin Reyes MD [address] [id number] Referral ID Status Reason Start Date Expiration Date V isits Requested Visits Authorized [id number] Closed PCP Requested Referral 12/17/2022 12/17/2023 1 1 Reason Comments Headache Reason Comments Triage Internal Reason Comments Refill Request Reason Comments Follow Up Chronic Migraine Specialty Diagnoses / Procedures Referred By Contac t Referred To Contact MR IMAGING Diagnoses Hemangioma of bone Procedures MRI BRAIN WO/W IVCON MRI BRAIN BRAIN STEM W/O W/CONTRAST MATERIAL Nathanael Ryan MD [address] [phone] Mr Imaging [place] [address] Referral ID Status Reason Start Date Expiration Date V isits Requested Visits Authorized [id number] Closed Auto-Generate d Referral 01/22/2024 03/22/2024 1 1 Specialty Diagnoses / Procedures Referred By Contac t Referred To Contact MR IMAGING Diagnoses Brain tumor (HCC) Procedures MRI BRAIN WO/W IVCON MRI BRAIN BRAIN STEM W/O W/CONTRAST tub menderStalin Reyes MD [phone] Mr Imaging [facility] Referral ID Status Reason Start Date Expiration Date V isits Requested Visits Authorized [id number] Closed Auto-Generate d Referral 01/11/2023 03/12/2023 1 1 Goals (unrecognized section and content) Goals may be documented in a n alternate section FOR RECORDS PERTAINING TO PATIENTS WHO ARE [...] BE BASED ON THE PRIMARY CLINICAL RECORDS. [employer] provides no warranty or guarantee of the accuracy or completeness of information in this document.
[2025-02-19 04:07] LABS: FSH 17.0 mIU/mL (.)
== END 2025-02-18 11:44 | disposition home or self-care (01) ==
LOC: LAB 11:47
PROVIDERS: PCP Family Medicine; Visit Provider Family Medicine
DX: N93.8 Other specified abnormal uterine and vaginal bleeding (principal)
CPT/HCPCS: 36415; 83001